=== PATIENT | male | born 1935 | race Caucasian/White ===

== ENCOUNTER 2020-05-24 12:41 | Outpatient (REF) | payer MEDICARE, SELFPAY ==
[2020-05-24 14:55] LABS: Prostate Specific Antigen 0.06 ng/mL (<0.05-4.0)
== END 2020-05-24 12:42 | disposition home or self-care (01) ==
LOC: HO.10HDL 12:41
PROVIDERS: Visit Provider Urology
DX: Z12.5 Encounter for screening for malignant neoplasm of prostate (principal)
CPT/HCPCS: 84153

== ENCOUNTER → 2020-06-05 11:15 | Outpatient (BNVA) | payer MEDICARE, SELFPAY | PROVIDERS: PCP Internal Medicine Interventional Cardiology; Visit Provider Urology | DX: R97.21 Rising PSA following treatment for malignant neoplasm of prostate (principal); C61 Malignant neoplasm of prostate; Z79.899 Other long term (current) drug therapy | CPT/HCPCS: 96372; 99212; J9217 ==

== ENCOUNTER 2020-08-24 12:07 | Outpatient (REF) | payer MEDICARE, SELFPAY ==
[2020-08-24 14:21] LABS: Prostate Specific Antigen 0.05 ng/mL (<0.05-4.0)
== END 2020-08-24 12:08 | disposition home or self-care (01) ==
LOC: HO.10HDL 12:07
PROVIDERS: Visit Provider Urology
DX: Z12.5 Encounter for screening for malignant neoplasm of prostate (principal); C61 Malignant neoplasm of prostate; R97.21 Rising PSA following treatment for malignant neoplasm of prostate
CPT/HCPCS: 36415; 84153

== ENCOUNTER → 2020-09-05 13:06 | Outpatient (BNVA) | payer MEDICARE, SELFPAY | PROVIDERS: PCP Internal Medicine Interventional Cardiology; Visit Provider Urology | DX: C61 Malignant neoplasm of prostate (principal) | CPT/HCPCS: 99212 ==

== ENCOUNTER 2020-11-16 09:44 | Outpatient (REF) | payer MEDICARE, SELFPAY ==
[2020-11-16 11:03] LABS: Prostate Specific Antigen 0.05 ng/mL (<0.05-4.0)
[2020-11-21 20:06] LABS: Testosterone, Total 10 ng/dL (250-1100)
== END 2020-11-16 09:45 | disposition home or self-care (01) ==
LOC: HO.LAB 09:44
PROVIDERS: Visit Provider Urology
DX: Z12.5 Encounter for screening for malignant neoplasm of prostate (principal); N40.1 Benign prostatic hyperplasia with lower urinary tract symptoms; N13.8 Other obstructive and reflux uropathy
CPT/HCPCS: 36415; 84153; 84403

== ENCOUNTER → 2020-11-28 13:05 | Outpatient (BNVA) | payer MEDICARE, SELFPAY | PROVIDERS: Visit Provider Urology | DX: R97.21 Rising PSA following treatment for malignant neoplasm of prostate (principal); C61 Malignant neoplasm of prostate; R23.2 Flushing; T50.905A Adverse effect of unspecified drugs, medicaments and biological substances, initial encounter | CPT/HCPCS: 99212 ==

== ENCOUNTER 2021-03-11 10:22 | Outpatient (REF) | payer MEDICARE, SELFPAY ==
[2021-03-11 15:12] LABS: Prostate Specific Antigen 0.06 ng/mL (<0.05-4.0)
[2021-03-16 08:12] LABS: Testosterone, Total 13 ng/dL (250-1100)
== END 2021-03-11 10:23 | disposition home or self-care (01) ==
LOC: HO.10HDL 10:22
PROVIDERS: Visit Provider Urology
DX: Z12.5 Encounter for screening for malignant neoplasm of prostate (principal); R97.21 Rising PSA following treatment for malignant neoplasm of prostate
CPT/HCPCS: 36415; 84153; 84403

== ENCOUNTER → 2021-03-27 11:25 | Outpatient (BNVA) | payer MEDICARE, SELFPAY | PROVIDERS: Visit Provider Urology | DX: C61 Malignant neoplasm of prostate (principal); R23.2 Flushing; T50.905D Adverse effect of unspecified drugs, medicaments and biological substances, subsequent encounter | CPT/HCPCS: 99212 ==

== ENCOUNTER 2021-07-04 12:34 | Outpatient (REF) | payer MEDICARE, SELFPAY ==
[2021-07-04 14:13] LABS: Estimated Average Glucose 163 mg/dL; Hemoglobin A1c % 7.3 %
[2021-07-04 14:41] LABS: Alanine Aminotransferase 38 U/L (0-40); Anion Gap 16 (12-20); Aspartate Amino Transferase 36 U/L (5-37); Blood Urea Nitrogen 30 mg/dL (9-16); Calcium 9.6 mg/dL (8.4-10.2); Carbon Dioxide 23 mmol/L (22-29); Chloride 104 mmol/L (96-108); Estimated Glomerular Filt Rate 48; Glucose Random 276 mg/dL (60-115); Potassium 4.5 mmol/L (3.3-5.1); Sodium 138 mmol/L (135-145)
[2021-07-04 14:49] LABS: Prostate Specific Antigen 0.15 ng/mL (<0.05-4.0)
[2021-07-09 09:06] LABS: Testosterone, Total 13 ng/dL (250-1100)
== END 2021-07-04 12:35 | disposition home or self-care (01) ==
LOC: HO.10HDL 12:34
PROVIDERS: Absent Provider Physician Assistant; Visit Provider Urology
DX: Z12.5 Encounter for screening for malignant neoplasm of prostate (principal); C61 Malignant neoplasm of prostate; E11.42 Type 2 diabetes mellitus with diabetic polyneuropathy
CPT/HCPCS: 36415; 80048; 83036; 84153; 84403; 84450; 84460

== ENCOUNTER → 2021-07-24 12:44 | Outpatient (BNVA) | payer MEDICARE, SELFPAY | PROVIDERS: PCP Internal Medicine Interventional Cardiology; Visit Provider Urology | DX: C61 Malignant neoplasm of prostate (principal); R23.2 Flushing; T50.905A Adverse effect of unspecified drugs, medicaments and biological substances, initial encounter | CPT/HCPCS: Q3014 ==

== ENCOUNTER 2021-11-13 12:26 | Outpatient (REF) | payer MEDICARE, SELFPAY ==
[2021-11-13 13:45] LABS: Prostate Specific Antigen 0.19 ng/mL (<0.05-4.0)
[2021-11-19 10:41] LABS: Testosterone, Total 35 ng/dL (250-1100)
== END 2021-11-13 12:27 | disposition home or self-care (01) ==
LOC: HO.10HDL 12:26
PROVIDERS: Visit Provider Urology
DX: C61 Malignant neoplasm of prostate (principal); Z12.5 Encounter for screening for malignant neoplasm of prostate
CPT/HCPCS: 36415; 84153; 84403

== ENCOUNTER → 2021-11-22 13:26 | Outpatient (BNVA) | payer MEDICARE, SELFPAY | PROVIDERS: PCP Internal Medicine Interventional Cardiology; Visit Provider Urology | DX: C61 Malignant neoplasm of prostate (principal) | CPT/HCPCS: 99212; Q3014 ==

== ENCOUNTER 2022-05-15 12:31 | Outpatient (REF) | payer MEDICARE, SELFPAY ==
[2022-05-15 14:43] LABS: Prostate Specific Antigen 0.15 ng/mL (<0.05-4.0)
== END 2022-05-15 12:32 | disposition home or self-care (01) ==
LOC: HO.10HDL 12:31
PROVIDERS: Visit Provider Urology
DX: Z12.5 Encounter for screening for malignant neoplasm of prostate (principal); C61 Malignant neoplasm of prostate
CPT/HCPCS: 36415; 84153

== ENCOUNTER → 2022-05-27 14:42 | Outpatient (BNVA) | payer MEDICARE, SELFPAY | PROVIDERS: Visit Provider Urology | DX: C61 Malignant neoplasm of prostate (principal) | CPT/HCPCS: 99212 ==

== ENCOUNTER 2022-09-15 12:35 | Outpatient (REF) | payer MEDICARE, SELFPAY ==
[2022-09-19 14:13] LABS: Testosterone, Total 74 ng/dL (250-1100)
== END 2022-09-15 12:36 | disposition home or self-care (01) ==
LOC: HO.10HDL 12:35
PROVIDERS: Visit Provider Urology
DX: Z12.5 Encounter for screening for malignant neoplasm of prostate (principal); C61 Malignant neoplasm of prostate
CPT/HCPCS: 36415; 84153; 84403

== ENCOUNTER → 2022-09-26 14:13 | Outpatient (BNVA) | payer MEDICARE, SELFPAY | PROVIDERS: Visit Provider Urology | DX: C61 Malignant neoplasm of prostate (principal); R97.21 Rising PSA following treatment for malignant neoplasm of prostate; Z79.01 Long term (current) use of anticoagulants; Z79.899 Other long term (current) drug therapy | CPT/HCPCS: Q3014 ==

== ENCOUNTER 2023-01-19 13:00 | Outpatient (REF) | payer MEDICARE, SELFPAY ==
[2023-01-19 16:00] LABS: Prostate Specific Antigen 0.87 ng/mL (<0.05-4.0)
[2023-01-23 01:44] LABS: Testosterone, Total 79 ng/dL (250-1100)
== END 2023-01-19 13:01 | disposition home or self-care (01) ==
LOC: HO.10HDL 13:00
PROVIDERS: Visit Provider Urology
DX: Z12.5 Encounter for screening for malignant neoplasm of prostate (principal); C61 Malignant neoplasm of prostate
CPT/HCPCS: 36415; 84153; 84403

== ENCOUNTER 2023-02-03 13:48 | Outpatient (AMB) | payer MEDICARE, SELFPAY ==
--- NOTE | 2023-02-03 14:13 | MHC.OFFVIS ---
Intake Intake Visit Reasons: 4M PSA/Testo(set) Intake Note: Patient is present for Follow Up PSA/TESTOSTERONE Urology Med: Finasteride, Antibiotic Allergy: None Blood Thinner: None Pharmacy: [facility] Allergies colbetamide- used for gout Allergy (Unknown, Uncoded 02/03/23 14:14) 50 years ago COLBETAMINE Allergy (Unknown, Uncoded 02/03/23 14:14) SWELLING HPI HPI Comments History of Present Illness Details Chidi is a pleasant male. He is a patient of Dr. Barrientos. He is seen for the following urologic conditions - prostate cancer 02/04 PSA 0.9 T 80 10/05 off finasteride Four month follow-up repeat labs Prostate cancer Grade Group 4 - 07/02 treatment with intermittent hormone therapy Initial diagnosis of [address] prostate cancer Initial consideration for therapy was external beam radiation Patient opted for intermittent hormone therapy - with intermittent finasteride Laboratories - 09/02 PSA 0.05, 12/03 PSA <0.1 T 10, 03/05, 03/05 PSA 0.06 T 13, 07/06 P 0.15 T 13, 12/04 0.2 T 35, 06/05 0.15 Fin, 10/05 0.7 T 74 Last [facility] 03/04 - 2 years [facility] Medical History Diabetes mellitus, type II Elevated PSA GERD (gastroesophageal reflux disease) Gout Increasing prostate specific antigen (PSA) level after treatment for malignant neoplasm of prostate Prostate cancer Surgical History H/O inguinal hernia repair History of prostate biopsy Family History Father No problems noted. Mother No problems noted. Social History Alcohol intake: never Patient Tobacco Use Status: Never used Tobacco Review of Systems Const Denies chills and Denies fever(s) Card Reports no additional complaints and Denies syncope Resp Denies cough GI Denies abdominal pain and Denies heartburn Reports as per HPI and Denies change in libido Neuro Denies syncope Psych Denies change in libido Endo Denies change in libido Physical Exam Const General: cooperative, healthy appearing, comfortable and no acute distress Orientation/consciousness: patient oriented x3 HEENT Face and sinus: Yes normal facial exam Mouth: moist mucous membranes Neck Neck: Yes normal visual inspection, Yes full ROM and Yes trachea midline Chest Chest palpation & inspection: normal inspection of the chest Resp Effort & Inspection: normal respiratory effort, able to speak in complete sentences and no respiratory distress GI Inspection: Yes normal to inspection Back/Spine/Pelvis Cervical Spine: normal cervical lordosis Thoracic/Lumbar Spine: thoracic and lumbar spine normal to inspection Skin General skin exam: no rashes or lesions noted Neuro General: patient oriented x3, gait normal, tone normal and moves all extremities Extrem General: Yes normal to inspection and Yes capillary refill normal Assessment & Plan Assessment & Plan (1) Prostate cancer: Comment: 201314 Grade Group 4, Initial hormonal treatment Code(s): C61 - Malignant neoplasm of prostate Plan Four month follow-up lab Orders: Orders Prostate Specific Antigen 4 Months C61 - Malignant neoplasm of prostate Testosterone, Total 4 Months C61 - Malignant neoplasm of prostate Patient Instructions: Imaging studies, laboratory and physical exam results were discussed and reviewed in detail. No major barriers to patient understanding were identified. An opportunity to ask questions regarding the treatment plan was provided. All questions were answered. The patient expressed understanding and agreement with the above treatment plan. The patient is aware they should contact our office by phone for worsening of their current condition or the appearance of new urologic symptoms. Compliance is encouraged with any medications and followup testing that is ordered. It is a privilege to participate in the urologic care of your patient. If you have any questions or concerns regarding treatment for the above conditions, or other urologic issues, please do not hesitate to contact me. The office telephone contact is [phone]. This note is constructed using voice recognition software. While every effort has been made to ensure accuracy front desk worker errors may have been included. Yours sincerely, Dr Dhruv Marcos MD, [facility] - Urology Providers of Expert, Compassionate Care for the Genitourinary System Coding Level of Care Code Est Pt Level 3 (71520) Diagnoses Prostate cancer C61
== END 2023-02-03 15:41 | disposition home or self-care (01) ==
PROVIDERS: Visit Provider Urology
DX: C61 Malignant neoplasm of prostate (principal)
CPT/HCPCS: 99213

== ENCOUNTER → 2023-02-03 13:51 | Outpatient (BNVA) | payer MEDICARE, SELFPAY | PROVIDERS: Visit Provider Urology | DX: C61 Malignant neoplasm of prostate (principal) | CPT/HCPCS: 99212 ==

== ENCOUNTER 2023-05-18 11:04 | Outpatient (REF) | payer MEDICARE, SELFPAY ==
[2023-05-18 14:24] LABS: Prostate Specific Antigen 1.06 ng/mL (<0.05-4.0)
[2023-05-24 13:28] LABS: Testosterone, Total 99 ng/dL (250-1100)
== END 2023-05-18 11:05 | disposition home or self-care (01) ==
LOC: HO.10HDL 11:04
PROVIDERS: Visit Provider Urology
DX: C61 Malignant neoplasm of prostate (principal); Z12.5 Encounter for screening for malignant neoplasm of prostate
CPT/HCPCS: 36415; 84153; 84403

== ENCOUNTER 2023-06-03 12:23 | Outpatient (AMB) | payer MEDICARE, SELFPAY ==
--- NOTE | 2023-06-03 12:24 | MHC.OFFVIS ---
Intake Intake Visit Reasons: PSA/Testosterone(set) Intake Note: Patient is Present for Telephone Follow Up Urology Med: Finasteride Antibiotic Allergy: None Blood Thinner: Plavix Allergies colbetamide- used for gout Allergy (Unknown, Uncoded 06/03/23 12:25) 50 years ago COLBETAMINE Allergy (Unknown, Uncoded 06/03/23 12:25) SWELLING HPI HPI Comments History of Present Illness Details Chidi is a pleasant male. He is a patient of Dr. Barrientos. He is seen for the following urologic conditions - prostate cancer Telemedicine Evaluation 15 min Consultation [employer] Video attempted PSA 02/04 0.9 T 80, 06/06 1.06 100 10/05 off finasteride Four month follow-up repeat labs Prostate cancer Grade Group 4 - 07/02 treatment with intermittent hormone therapy Initial diagnosis of [place] prostate cancer Initial consideration for therapy was external beam radiation Patient opted for intermittent hormone therapy - with intermittent finasteride Laboratories - 09/02 PSA 0.05, 12/03 PSA <0.1 T 10, 03/05, 03/05 PSA 0.06 T 13, 07/06 P 0.15 T 13, 12/04 0.2 T 35, 06/05 0.15 Fin, 10/05 0.7 T 74 Last [facility] 03/04 - 2 years [facility] Medical History Gout GERD (gastroesophageal reflux disease) Diabetes mellitus, type II Elevated PSA Increasing prostate specific antigen (PSA) level after treatment for malignant neoplasm of prostate Prostate cancer Surgical History H/O inguinal hernia repair History of prostate biopsy Family History Father No problems noted. Mother No problems noted. Social History Alcohol intake: never Patient Tobacco Use Status: Never used Tobacco Review of Systems Const Denies chills and Denies fever(s) Card Reports no additional complaints and Denies syncope Resp Denies cough GI Denies abdominal pain and Denies heartburn Reports as per HPI and Denies change in libido Neuro Denies syncope Psych Denies change in libido Endo Denies change in libido Physical Exam Const General: cooperative, healthy appearing, comfortable and no acute distress Orientation/consciousness: patient oriented x3 HEENT Face and sinus: Yes normal facial exam Mouth: moist mucous membranes Neck Neck: Yes normal visual inspection, Yes full ROM and Yes trachea midline Chest Chest palpation & inspection: normal inspection of the chest Resp Effort & Inspection: normal respiratory effort, able to speak in complete sentences and no respiratory distress GI Inspection: Yes normal to inspection Back/Spine/Pelvis Cervical Spine: normal cervical lordosis Thoracic/Lumbar Spine: thoracic and lumbar spine normal to inspection Skin General skin exam: no rashes or lesions noted Neuro General: patient oriented x3, gait normal, tone normal and moves all extremities Extrem General: Yes normal to inspection and Yes capillary refill normal Assessment & Plan Assessment & Plan (1) Prostate cancer: Comment: 201314 Grade Group 4, Initial hormonal treatment Code(s): C61 - Malignant neoplasm of prostate Plan Four month follow-up PSA office Orders: Orders Prostate Specific Antigen 4 Months C61 - Malignant neoplasm of prostate Patient Instructions: Imaging studies, laboratory and physical exam results were discussed and reviewed in detail. No major barriers to patient understanding were identified. An opportunity to ask questions regarding the treatment plan was provided. All questions were answered. The patient expressed understanding and agreement with the above treatment plan. The patient is aware they should contact our office by phone for worsening of their current condition or the appearance of new urologic symptoms. Compliance is encouraged with any medications and followup testing that is ordered. It is a privilege to participate in the urologic care of your patient. If you have any questions or concerns regarding treatment for the above conditions, or other urologic issues, please do not hesitate to contact me. The office telephone contact is [phone]. This note is constructed using voice recognition software. While every effort has been made to ensure accuracy yellow pages space salesperson errors may have been included. Yours sincerely, Dr Dhruv Marcos MD, [facility] - Urology Providers of Expert, Compassionate Care for the Genitourinary System Telehealth Telehealth Location of provider rendering services: practice address Location of patient: address on file Patient Identification confirmed using: Name, : Yes Telehealth method: video Patient verbally consented to treatment: Yes Patient verbally consented to billing insurance company: Yes Patient informed of any privacy concerns related to visit: Yes Coding Level of Care Code Tele Est Pt Level 3 (89440) Diagnoses Prostate cancer C61
== END 2023-06-03 14:18 | disposition home or self-care (01) ==
LOC: HO.HUSH 12:23
PROVIDERS: Visit Provider Urology
DX: C61 Malignant neoplasm of prostate (principal)
CPT/HCPCS: 99213

== ENCOUNTER → 2023-06-03 12:23 | Outpatient (BNVA) | payer MEDICARE, SELFPAY | PROVIDERS: Visit Provider Urology ==

== ENCOUNTER 2023-09-23 12:06 | Outpatient (REF) | payer MEDICARE, SELFPAY ==
[2023-09-23 14:36] LABS: Prostate Specific Antigen 0.82 ng/mL (<0.05-4.0)
== END 2023-09-23 12:07 | disposition home or self-care (01) ==
LOC: HO.10HDL 12:06
PROVIDERS: Visit Provider Urology
DX: C61 Malignant neoplasm of prostate (principal); Z12.5 Encounter for screening for malignant neoplasm of prostate
CPT/HCPCS: 36415; 84153

== ENCOUNTER 2023-10-02 14:36 | Outpatient (AMB) | payer MEDICARE, SELFPAY ==
--- NOTE | 2023-10-02 14:37 | A.OFFVIS_ITS ---
Intake Visit Reasons: 4M PSA(set)Confirmed Allergies colbetamide- used for gout Allergy (Unknown, Uncoded 06/03/23 12:25) 50 years ago COLBETAMINE Allergy (Unknown, Uncoded 06/03/23 12:25) SWELLING HPI Comments Details: Chidi is a pleasant male. He is a patient of Dr. Barrientos. He is seen for the following urologic conditions - prostate cancer Telemedicine Evaluation 15 min Consultation [employer] Video attempted Doing great. PSA under control. Has been off finasteride. Continue with 4 month surveillance. PSA 02/04 0.9 T 80, 06/06 1.1 100, 10/06 0.8 Prostate cancer Grade Group 4 - 07/02 treatment with intermittent hormone therapy Initial diagnosis of [place] [address] prostate cancer Initial consideration for therapy was external beam radiation Patient opted for intermittent hormone therapy - with intermittent finasteride Laboratories - 09/02 PSA 0.05, 12/03 PSA <0.1 T 10, 03/05, 03/05 PSA 0.06 T 13, 07/06 P 0.15 T 13, 12/04 0.2 T 35, 06/05 0.15 Fin, 10/05 0.7 T 74 Last [facility] 03/04 - 2 years [facility] Medical History Gout GERD (gastroesophageal reflux disease) Diabetes mellitus, type II Elevated PSA Increasing prostate specific antigen (PSA) level after treatment for malignant neoplasm of prostate Prostate cancer Surgical History H/O inguinal hernia repair History of prostate biopsy Family History Father No problems noted. Mother No problems noted. Social History Alcohol intake: never Patient Tobacco Use Status: Never used Tobacco Review of Systems Const All systems reviewed & are unremarkable except as noted in HPI and below Reports no additional complaints Resp Reports no additional complaints GI Reports no additional complaints Reports as per HPI Musc Reports no additional complaints Physical Exam Telemedicine evaluation Appropriate responses Regular breathing rate and rhythm HEENT Head: Yes normal to inspection Ears: hearing grossly normal bilaterally Eyes General: appearance normal, both eyes and all related structures Neck Neck: Yes normal visual inspection Chest Chest palpation & inspection: normal inspection of the chest Resp Effort & Inspection: normal respiratory effort and able to speak in complete sentences Telehealth Telehealth Location of provider rendering services: practice address Location of patient: address on file Patient Identification confirmed using: Name, : Yes Telehealth method: voice only Patient verbally consented to treatment: Yes Patient verbally consented to billing insurance company: Yes Patient informed of any privacy concerns related to visit: Yes Assessment & Plan Assessment & Plan (1) Biochemically recurrent castration-sensitive adenocarcinoma of prostate: Code(s): C61 - Malignant neoplasm of prostate; R97.21 - Rising PSA following treatment for malignant neoplasm of prostate; Z19.1 - Hormone sensitive malignancy status Category: Medical Plan Four month follow-up PSA Orders: Orders Prostate Specific Antigen 4 Months R97.21 - Rising PSA following treatment for malignant neoplasm of prostate Patient Instructions: Imaging studies, laboratory and physical exam results were discussed and reviewed in detail. No major barriers to patient understanding were identified. An opportunity to ask questions regarding the treatment plan was provided. All questions were answered. The patient expressed understanding and agreement with the above treatment plan. The patient is aware they should contact our office by phone for worsening of their current condition or the appearance of new urologic symptoms. Compliance is encouraged with any medications and followup testing that is ordered. It is a privilege to participate in the urologic care of your patient. If you have any questions or concerns regarding treatment for the above conditions, or other urologic issues, please do not hesitate to contact me. The office telephone contact is [phone]. This note is constructed using voice recognition software. While every effort has been made to ensure accuracy administrative representative errors may have been included. Yours sincerely, Dr Dhruv Marcos MD, [facility] - Urology Providers of Expert, Compassionate Care for the Genitourinary System
== END 2023-10-02 14:48 | disposition home or self-care (01) ==
LOC: HO.HUSH 14:36
PROVIDERS: Visit Provider Urology
DX: C61 Malignant neoplasm of prostate (principal); R97.21 Rising PSA following treatment for malignant neoplasm of prostate; Z19.1 Hormone sensitive malignancy status
CPT/HCPCS: 99442

== ENCOUNTER → 2023-10-02 14:36 | Outpatient (BNVA) | payer MEDICARE, SELFPAY | PROVIDERS: Visit Provider Urology ==

== ENCOUNTER 2024-01-14 11:14 | Outpatient (REF) | payer MEDICARE, SELFPAY ==
[2024-01-14 12:56] LABS: Prostate Specific Antigen 1.45 ng/mL (<0.05-4.0)
== END 2024-01-14 11:15 | disposition home or self-care (01) ==
LOC: HO.LAB 11:14
PROVIDERS: Visit Provider Urology
DX: R97.21 Rising PSA following treatment for malignant neoplasm of prostate (principal); Z12.5 Encounter for screening for malignant neoplasm of prostate
CPT/HCPCS: 36415; 84153

== ENCOUNTER 2024-02-02 13:42 | Outpatient (AMB) | payer MEDICARE, SELFPAY ==
--- NOTE | 2024-02-02 13:49 | A.OFFVIS_ITS ---
Intake Visit Reasons: 4M Follow Up-PSA(set) Intake Note: Patient is Present for 4m Follow Up/psa Urology Med: Finasteride, gabapentin Antibiotic Allergy: None Blood Thinner: Plavix Offset Plate Preparation Supervisor Required: No Allergies colbetamide- used for gout Allergy (Unknown, Uncoded 02/02/24 13:50) 50 years ago COLBETAMINE Allergy (Unknown, Uncoded 02/02/24 13:50) SWELLING Medication List - Last Reconciled 02/02/24 by Dhruv Marcos MD allopurinol mg PO amlodipine 5 mg PO DAILY blood sugar diagnostic As directed clopidogrel 75 mg PO DAILY dulaglutide mg subcut fenofibrate nanocrystallized 145 mg PO DAILY finasteride 5 mg PO DAILY 90 days furosemide 20 mg PO DAILY gabapentin 300 mg PO BEDTIME 90 days glipizide ER 10 mg PO BID insulin asp prt-insulin aspart 100 unit/mL (70-30) subcut lisinopril 20 mg PO DAILY lisinopril 5 mg PO DAILY lorazepam 0.5 mg PO DAILY PRN metformin mg PO metoprolol succinate ER 100 mg PO DAILY niacin ER mg PO omeprazole 20 mg PO DAILY simvastatin 40 mg PO BEDTIME HPI Comments Details: Chidi is a pleasant male. He is a patient of Dr. Barrientos. He is seen for the following urologic conditions - prostate cancer Slow PSA rise Re-initiate hormones at PSA between 4 and 10 PSA 02/04 0.9 T 80, 06/06 1.1 100, 10/06 0.8, 02/05 1.4 T 99 Prostate cancer Grade Group 4 - 07/02 treatment with intermittent hormone therapy Initial diagnosis of [place] 8 prostate cancer Initial consideration for therapy was external beam radiation Patient opted for intermittent hormone therapy - with intermittent finasteride Laboratories - 09/02 PSA 0.05, 12/03 PSA <0.1 T 10, 03/05, 03/05 PSA 0.06 T 13, 07/06 P 0.15 T 13, 12/04 0.2 T 35, 06/05 0.15 Fin, 10/05 0.7 T 74 Last [facility] 03/04 - 2 years [facility] Medical History Gout GERD (gastroesophageal reflux disease) Diabetes mellitus, type II Elevated PSA Increasing prostate specific antigen (PSA) level after treatment for malignant neoplasm of prostate Prostate cancer Surgical History H/O inguinal hernia repair History of prostate biopsy Family History Father No problems noted. Mother No problems noted. Social History Alcohol intake: never Patient Tobacco Use Status: Never used Tobacco Review of Systems Const Denies chills and Denies fever(s) Card Reports no additional complaints and Denies syncope Resp Denies cough GI Denies abdominal pain and Denies heartburn Reports as per HPI and Denies change in libido Neuro Denies syncope Psych Denies change in libido Endo Denies change in libido Physical Exam Const General: cooperative, healthy appearing, comfortable and no acute distress Orientation/consciousness: patient oriented x3 HEENT Face and sinus: Yes normal facial exam Mouth: moist mucous membranes Neck Neck: Yes normal visual inspection, Yes full ROM and Yes trachea midline Chest Chest palpation & inspection: normal inspection of the chest Resp Effort & Inspection: normal respiratory effort, able to speak in complete sentences and no respiratory distress GI Inspection: Yes normal to inspection Back/Spine/Pelvis Cervical Spine: normal cervical lordosis Thoracic/Lumbar Spine: thoracic and lumbar spine normal to inspection Skin General skin exam: no rashes or lesions noted Neuro General: patient oriented x3, gait normal, tone normal and moves all extremities Extrem General: Yes normal to inspection and Yes capillary refill normal Results AMB Urinalysis, Automated UA Leukoctes 70 Alex/uL Last Edit by FÁTIMA Reed on 02/02/24 14:10 UA Nitrite Negative Last Edit by FÁTIMA Reed on 02/02/24 14:10 UA Urobilinogen 0.2 mg/dL Last Edit by FÁTIMA Reed on 02/02/24 14:1 0 UA Protein 15 mg/dL Last Edit by FÁTIMA Reed on 02/02/24 14:10 UA pH 5.5 Last Edit by FÁTIMA Reed on 02/02/24 14:10 UA Blood 0 Hossein/uL Last Edit by FÁTIMA Reed on 02/02/24 14:10 UA Specific [place] 1.020 Last Edit by FÁTIMA Reed on 02/02/24 14: 10 UA Ketone Positive Last Edit by FÁTIMA Reed on 02/02/24 14:10 UA Bilirubin 1 mg/dL Last Edit by FÁTIMA Reed on 02/02/24 14:10 UA Glucose 0 mg/dL Last Edit by FÁTIMA Reed on 02/02/24 14:10 Results Reviewed Results Reviewed: Laboratory Last Values Urine pH (Auto) 5.5 02/02/24 14:10 Specific [place] (Auto) 1.020 02/02/24 14:10 Urine Protein (Auto) 15 mg/dL 02/02/24 14:10 Glucose (UA)(Auto) 0 mg/dL 02/02/24 14:10 Urine Ketones (Auto) Positive 02/02/24 14:10 Urine Blood (Auto) 0 Hossein/uL 02/02/24 14:10 Urine Nitrite (Auto) Negative 02/02/24 14:10 Urine Bilirubin (Auto) 1 mg/dL 02/02/24 14:10 Urine Urobilinogen (Auto) 0.2 mg/dL 02/02/24 14:10 Leukocyte Esterase (Auto) 70 Alex/uL 02/02/24 14:10 Assessment & Plan Assessment & Plan (1) Prostate cancer: Comment: 2014 Grade Group 4, Initial hormonal treatment Code(s): C61 - Malignant neoplasm of prostate Category: Medical (2) Biochemically recurrent castration-sensitive adenocarcinoma of prostate: Code(s): C61 - Malignant neoplasm of prostate; R97.21 - Rising PSA following treatment for malignant neoplasm of prostate; Z19.1 - Hormone sensitive malignancy status Category: Medical Plan Four month follow-up lab work Orders: Orders Testosterone, Total 4 Months C61 - Malignant neoplasm of prostate, R97.21 - Rising PSA following treatment for malignant neoplasm of prostate, Z19.1 - Hormone sensitive malignancy status Prostate Specific Antigen 4 Months C61 - Malignant neoplasm of prostate, R97.21 - Rising PSA following treatment for malignant neoplasm of prostate, Z19.1 - Hormone sensitive malignancy status AMB Urinalysis Automated 02/02/24 Z13.9 - Encounter for screening, unspecified Patient Instructions: Imaging studies, laboratory and physical exam results were discussed and reviewed in detail. No major barriers to patient understanding were identified. An opportunity to ask questions regarding the treatment plan was provided. All questions were answered. The patient expressed understanding and agreement with the above treatment plan. The patient is aware they should contact our office by phone for worsening of their current condition or the appearance of new urologic symptoms. Compliance is encouraged with any medications and followup testing that is ordered. It is a privilege to participate in the urologic care of your patient. If you have any questions or concerns regarding treatment for the above conditions, or other urologic issues, please do not hesitate to contact me. The office telephone contact is [phone]. This note is constructed using voice recognition software. While every effort has been made to ensure accuracy arts and crafts teacher errors may have been included. Yours sincerely, Dr Dhruv Marcos MD, [facility] - Urology Providers of Expert, Compassionate Care for the Genitourinary System Coding Level of Care Code Est Pt Level 3 (11935) Diagnoses Prostate cancer C61 Biochemically recurrent castration-sensitive adenocarcinoma of prostate C61; R97.21; Z19.1
== END 2024-02-02 14:28 | disposition home or self-care (01) ==
LOC: HO.HUSH 13:42
PROVIDERS: Visit Provider Urology
DX: C61 Malignant neoplasm of prostate (principal); R97.21 Rising PSA following treatment for malignant neoplasm of prostate; Z19.1 Hormone sensitive malignancy status
CPT/HCPCS: 99213

== ENCOUNTER → 2024-02-02 13:42 | Outpatient (BNVA) | payer MEDICARE, SELFPAY | PROVIDERS: Visit Provider Urology | DX: C61 Malignant neoplasm of prostate (principal); R97.21 Rising PSA following treatment for malignant neoplasm of prostate; Z19.1 Hormone sensitive malignancy status | CPT/HCPCS: 81003; 99212 ==

== ENCOUNTER 2024-05-17 11:06 | Outpatient (REF) | payer MEDICARE, SELFPAY ==
[2024-05-17 14:41] LABS: Prostate Specific Antigen 2.08 ng/mL (<0.05-4.0)
[2024-05-22 15:17] LABS: Testosterone, Total 81 ng/dL (250-1100)
--- OUTSIDE RECORDS SUMMARY | 2024-05-24 13:09 | XMS_ITS | Encounter Summary ---
Author Name [facility] [place] Address [address] [place] [id number] Care Team Providers Care Dipper Operator Name Role Phone MARGARITA FLOREZ Primary Care Provide r Unavailable Insurance Providers: All historical and current Section Date Range: From patient's date of to the date document was created. This section includes the names of all active insurance providers for the patient. Insurance Provider Type of Coverage Plan Name Start of Policy Coverage End of Policy Coverage Group Number Member ID Insurance Provider's Telephone Number Policy Bejarano's Name Patient's Relationship to Policy Bejarano ALVA [place] [facility] Dec 13, 2013 [id number] DAGMAR,ZIA ERT PATIENT [place] MED[place] SUPPLEMEN [facility] November 06, 2007 [id number] DAGMAR,ZIA ERT PATIENT [place] SUPPLEMEN [facility] 2 November 06, 2007 [id number] DAGMAR,ZIA ERT PAT[place] [facility] 2 November 06, 2007 [id number] DAGMAR,ZIA ERT PATIENT BCBS OF [facility] MEDICARE SUPPLEMEN [facility] Dec 13, 2013 [id number] DAGMAR,ZIA ERT PATIENT [place] SUPPLEMEN [facility]/ WHITM AN/MX Dec 13, 2008 [id number] [phone] DAGMAR,ZIA ERT PATIENT MEDICARE (WNR) MEDICARE () PART B May 15, 2012 PART B [id number] DAGMAR,ZIA ERT PATIENT MEDICARE (WNR) MEDICARE () PART A May 15, 2002 PART A [id number] DAGMAR,ZIA ERT PATIENT MEDICARE (WNR) MEDICARE () PART A May 15, 2002 PART A [id number] [phone] DAGMAR,ZIA ERT PATIENT MEDICARE (WNR) MEDICARE () PART B May 15, 2002 PART B [id number] [phone] DAGMAR,ZIA ERT PATIENT MEDICARE (WNR) MEDICARE () PART A May 15, 2002 PART A [id number] DAGMAR,ZIA ERT PATIENT MEDICARE (WNR) MEDICARE () PART B May 15, 2002 PART B [id number] DAGMAR,ZIA ERT PATIENT MEDICARE (WNR) MEDICARE () PART A May 15, 2002 PART A [id number] DAGMAR,ZIA ERT PATIENT MEDICARE (WNR) MEDICARE () PART B May 15, 2002 PART B [id number] DAGMAR,ZIA ERT PATIENT Selected Encounter This section includes the information on record at [place] for the Encounter. Date/Time Encounter Type Encounter Description Reason Provider Source Jun 03, 2023 04:14 PM TUBING WITH HEATING ELEMENT TELEPHONE/MEDICIN E ICD-10-CM G47.33 Obstructive sleep apnea (adult) (pediatric) RANJITH FIELDS Grecia Encounter Template Text not used by VA Assessments - Encounter Diagnoses This section includes the primary and secondary diagnoses documented for the Encounter. Date/Time Primary/Secondary Diagnosis Diagnosis Name Provider Source Jun 03, 2023 04:14 PM PRIMARY Obstructive sleep apnea (adult) (pediatric) RANJITH FIELDS PA [facility] [place] [facility] Plan of Treatment: Future Appointments (+ 6 months) and Future Tests (+/- 45 days) The Plan of Treatment section includes future care activities for the [facility] This section includes future appointments and future orders which are active, pending or scheduled. Future Appointments This section includes appointments that were scheduled to occur 6 months from the date of the Encounter, up to a maximum of 20 appointments. The data comes from all [place] treatment facilities. Appointment Date/Time Appointment Type Appointme nt Facility Name Jun 10, 2023 12:00 PM AMBULATORY - MEDICINE [place] C [facility] [place] [facility] Jun 17, 2023 08:30 AM AMBULATORY - MEDICINE [place] [facility] [place] [facility] Jun 22, 2023 09:00 AM AMBULATORY - MEDICINE [place] [facility] [place] [facility] Aug 05, 2023 01:00 PM AMBULATORY - MEDICINE [place] [facility] [place] [facility] Aug 07, 2023 02:00 PM AMBULATORY - REHAB MEDICIN E [place] [facility] [place] [facility] Sep 07, 2023 03:00 PM AMBULATORY - REHAB MEDICIN E [place] [facility] [place] [facility] Sep 15, 2023 11:00 AM [facility]INE [facility] Sep 16, 2023 01:00 PM AMBULATORY - MEDICINE [place] [facility] [place] [facility] Sep 18, 2023 10:30 AM AMBULATORY - REHAB MEDICIN E [place] Sep 23, 2023 01:00 PM [facility]ATORY - MEDICINE [facility] Sep 23, 2023 01:15 PM AMBULATORY - MEDICINE [facility] Sep 30, 2023 03:00 PM [facility] Sep 30, 2023 03:15 PM [facility]ULATORY - MEDICINE [facility] Oct 13, 2023 01:00 PM AMBULATORY - MEDICINE [place] [facility] [place] [facility] October 16, 2023 01:00 PM AMBULATORY - MEDICINE PA C [facility] [place] [facility] Lab Results: +/- 30 days of the encounter This section includes the Chemistry and Hematology Lab Results on record with [place] for the patient. Radiology Reports and Pathology Reports are provided separately, in subsequent sections. Lab Results This section contains the Chemistry/Hematology Results that were resulted 30 days before or 30 daysafter the date of the Encounter. Date/Time Source Result Type Result - Unit Interpretation Reference Range Comment May 27, 2023 01:06 PM [place] MAGNESIUM Specimen Type: SERUM No comment entered. Ordering Provider: MARGARITA DIAMOND Report Released Date/Time: May 11, 2023 01:25 PM Reporting Lab: [address] [address] Performing Lab: [address] [address] MAGNESIUM 1.3 mg/dL L 1.6-2.6 May 27, 2023 01:06 PM [place] BASIC METABOLIC PANEL (non-fasting) Spe cimen Type: SERUM No comment entered. Ordering Provider: MARGARITA DIAMOND Report Released Date/Time: May 11, 2023 01:25 PM Reporting Lab: [address] [address] Performing Lab: [address] [address] U[place]A NITROGEN 32 mg/dL H 7-25 GLUCOSE 179 mg/dL H 65-100 SODIUM 136 mmol/L 135-145 POTASSIUM 4.7 mmol/L 3.5-5.0 CHLORIDE 100 mmol/L 100-110 CO2 25 meq/L 20-30 CREATININE, Serum 1.67 mg/dL H 0.50-1.40 eGFR(CKD-EPI 2020) 40 mL/min L >60 May 08, 2023 01:29 PM [place] MAGNESIUM Specimen Type: SERUM No comment entered. Ordering Provider: MARGARITA DIAMOND Report Released Date/Time: Apr 28, 2023 03:59 PM Reporting Lab: [address] [address] Performing Lab: [address] [address] MAGNESIUM 1.7 mg/dL 1.6-2.6 May 08, 2023 01:29 PM [place] BASIC METABOLIC PANEL (non-fasting) Spe cimen Type: SERUM No comment entered. Ordering Provider: MARGARITA DIAMOND Report Released Date/Time: Apr 28, 2023 03:59 PM Reporting Lab: [facility] [address] [facility] [address] Performing Lab: [facility] [address] [facility] [address] UREA NITROGEN 29 mg/dL H 7-25 GLUCOSE 174 mg/dL H 65-100 SODIUM 141 mmol/L 135-145 POTASSIUM 4.6 mmol/L 3.5-5.0 CHLORIDE 106 mmol/L 100-110 CO2 26 meq/L 20-30 CREATININE, Serum 1.80 mg/dL H 0.50-1.40 eGFR(CKD-EPI 2020) 36 mL/min L >60 Social History: Smoking Status (Most current) and Tobacco Use (All prior to encounter date) This section includes the most current, and the historical, smoking and tobacco- related health factors from the [place] facility where the Encounter took place. Current Smoking Status This section includes the most current smoking, or tobacco-related health factor, from the [place] facility where the Encounter took place. Date/Time Current Smoking Status Comment Facil gorany Apr 15, 2022 01:00 PM VA-TOBACCO NEVER USED [facility] Encounter Notes: All associated encounter notes This section contains the clinical notes associated to the Encounter. Date/Time Encounter Note(s) Provider Source Jun 03, 2023 04:14 PM RESPIRATORY THERAP Y NOTE: LOCAL TITLE: RESPIRATORY THERAPY NOTE(BLANK) STANDARD TITLE: RESPIRATORY THERAPY NOTE DATE OF NOTE: JUN 03, 2023@16:14 ENTRY DATE: JUN 03, 2023@16:14:29 AUTHOR: RANJITH FIELDS EXP COSIGNER: URGENCY: STATUS: COMPLETED RESPIRATORY THERAPY NOTE(BLANK) Has ADDENDA Patient diagnosed with sleep apnea data reviewed for new Cpap follow up. Attempted to contact him to confirm his mask preference and left message for him to c/b. When he calls back, supplies can be ordered from [facility]. [employer] Patient APAP compliance data reviewed via the [employer] program for the last 30 days. SETTINGS: Apap 5 - [id number] TOTAL DAYS USED 28 DAYS USED > 4hrs 11 AVG USAGE 3:46 hours AVG PRESSURE 8cmH20 LEAK 24 AHI: 2.5 Central 0.1 If pt has any questions or concerns regarding Apap, he/she can contact Respiratory at [phone] extension [phone]. /es/ RANJITH FIELDS FIXED INCOME TRADING VICE PRESIDENT RESPIRATORY THERAPIST Signed: 06/03/2023 16:18 06/09/2023 ADDENDUM STATUS: COMPLETED Telephone Coding and Documentation: Diagnosis: Sleep Apnea Time spent with Patient via telephone: 15 minutes. called back and we discussed data and mask fitting. He has been using the F30i FFM with the medium cushion but sometimes has trouble putting it back on after he gets up to use bathroom. He was advised to put the mask on in front of a mirror so he can see what he's doing. He would also like to try another style mask so he was ordered the F20 med FFM and he will call back to let us know if it works better or if he needs a large FFM. /es/ RANJITH FIELDS FIXED INCOME TRADING VICE PRESIDENT RESPIRATORY THERAPIST Signed: 06/09/2023 15:05 RANJITH FIELDS
--- OUTSIDE RECORDS SUMMARY | 2024-05-24 13:09 | XMS_ITS | Encounter Summary ---
Author Name [facility] [place] Address [address] [place] [address] Care Team Providers Care Chief Warden Name Role Phone MARGARITA FLOREZ Primary Care [...] Relationship to Policy Bejarano [place] SUPPLEMEN [facility] Dec 13, 2013 [id number] DAGMAR,ZIA ERT PATIENT [place] MED[place] SUPPLEMEN [facility] November 06, 2007 [id number] DAGMAR,ZIA ERT PATIENT [place] SUPPLEMEN [facility] MEDEX 2 November 06, 2007 [id number] [phone] DAGMAR,ZIA ERT PATIENT [place] SUPPLEMEN [facility]EX 2 November 06, 2007 [id number] DAGMAR,ZIA ERT PATIENT BCBS OF [facility] MEDICARE SUPPLEMEN [facility] Dec 13, 2013 [id number] [phone] DAGMAR,ZIA ERT PATIENT [facility] OF [place] MEDICARE ROSALBA RAUSCH [facility] AN/MX Dec 13, 2008 [id number] DAGMAR,ZIA ERT PATIENT MEDICARE (WNR) MEDICARE () PART B May 15, 2012 PART B [id number] DAGMAR,ZIA ERT PATIENT MEDICARE (WNR) MEDICARE (M) PART A May 15, 2002 PART A [id number] DAGMAR,ZIA ERT PATIENT MEDICARE (WNR) MEDICARE (M) PART B May 15, 2002 PART B [id number] DAGMAR,ZIA ERT PATIENT MEDICARE (WNR) MEDICARE () PART A May 15, 2002 PART A [id number] DAGMAR,ZIA ERT PATIENT MEDICARE (WNR) MEDICARE (M) PART A May 15, 2002 PART A [id number] DAGMAR,ZIA ERT PATIENT MEDICARE (WNR) MEDICARE (M) PART B May 15, 2002 PART B [id number] [phone] DAGMAR,ZIA ERT PATIENT MEDICARE (WNR) MEDICARE (M) PART A May 15, 2002 PART A [id number] DAGMAR,ZIA ERT PATIENT MEDICARE (WNR) MEDICARE (M) PART B May 15, 2002 PART B [id number] DAGMAR,ZIA ERT PATIENT Selected Encounter This section includes the information on record at [place] for the Encounter. Date/Time Encounter Type Encounter Description Reason Pro vider Source May 28, 2023 12:09 PM Outpatient Encounter ADMIN PAT ACTIVTIES (MASNONCT) IHE Encounter Template Text not used by VA Plan of Treatment: Future Appointments (+ 6 months) and Future Tests (+/- 45 days) The Plan of Treatment section includes future care activities for the patient from all VA treatmentfacilities. This section includes future appointments and future orders which are active, pending or scheduled. Future Appointments This section includes appointments that were scheduled to occur 6 months from the date of the Encounter, up to a maximum of 20 appointments. The data comes from all [place] treatment facilities. Appointment Date/Time Appointment Type Appointme nt Facility Name Jun 10, 2023 12:00 PM AMBULATORY - MEDICINE [place] [facility] Jun 17, 2023 08:30 AM AMBULATORY - MEDICINE [place] [facility] Jun 22, 2023 09:00 AM AMBULATORY - MEDICINE [place] [facility] Aug 05, 2023 01:00 PM AMBULATORY - MEDICINE [place] [facility] Aug 07, 2023 02:00 PM AMBULATORY - REHAB MEDICIN E [place] [facility] [place] [facility] Sep 07, 2023 03:00 PM AMBULATORY - REHAB MEDICIN E [place] [place] [facility] Sep 15, 2023 11:00 AM AMBULATORY - MEDICINE [facility] Sep 16, 2023 01:00 PM AMBULATORY - MEDICINE [place] [facility] Sep 18, 2023 10:30 AM AMBULATORY - REHAB MEDICIN E [place] Sep 23, 2023 01:00 PM AMBULATORY - MEDICINE [facility] Sep 23, 2023 01:15 PM AMBULATORY - MEDICINE [facility] Sep 30, 2023 03:00 PM AMBULATORY - MEDICINE [facility] Sep 30, 2023 03:15 PM AMBULATORY - MEDICINE [facility] Oct 13, 2023 01:00 PM AMBULATORY - MEDICINE [place] [facility] October 16, 2023 01:00 PM AMBULATORY - MEDICINE [place] [facility] Lab Results: +/- 30 days of the encounter This section includes the Chemistry and Hematology Lab Results on record with [place] for the patient. Radiology Reports and Pathology Reports are provided separately, in subsequent sections. Lab Results This section contains the Chemistry/Hematology Results that were resulted 30 days before or 30 daysafter the date of the Encounter. Date/Time Source Result Type Result - Unit Interpretation Reference Range Comment May 27, 2023 01:06 PM [place] MAGNESIUM Specimen Type: SERUM No comment entered. Ordering Provider: MARGARITA DIAMOND Report Released Date/Time: May 11, 2023 01:25 PM Reporting Lab: [facility] [address] [facility] [address] Performing Lab: [place] [facility] [address] [address] MAGNESIUM 1.3 mg/dL L 1.6-2.6 May 27, 2023 01:06 PM [place] BASIC METABOLIC PANEL (non-fasting) Spe cimen Type: SERUM No comment entered. Ordering Provider: MARGARITA DIAMOND Report Released Date/Time: May 11, 2023 01:25 PM Reporting Lab: [facility] [address] [address] Performing Lab: [facility] [address] [address] UREA NITROGEN 32 mg/dL H 7-25 GLUCOSE 179 mg/dL H 65-100 SODIUM 136 mmol/L 135-145 POTASSIUM 4.7 mmol/L 3.5-5.0 CHLORIDE 100 mmol/L 100-110 CO2 25 meq/L 20-30 CREATININE, Serum 1.67 mg/dL H 0.50-1.40 eGFR(CKD-EPI 2020) 40 mL/min L >60 May 08, 2023 01:29 PM [place] MAGNESIUM Specimen Type: SERUM No comment entered. Ordering Provider: MARGARITA DIAMOND Report Released Date/Time: Apr 28, 2023 03:59 PM Reporting Lab: [facility] [address] Performing Lab: [facility] [address] MAGNESIUM 1.7 mg/dL 1.6-2.6 May 08, 2023 01:29 PM [place] BASIC METABOLIC PANEL (non-fasting) Spe cimen Type: SERUM No comment entered. Ordering Provider: MARGARITA DIAMOND Report Released Date/Time: Apr 28, 2023 03:59 PM Reporting Lab: [facility] [address] [address] Performing Lab: [facility] [place] [place] [address] UREA NITROGEN 29 mg/dL H 7-25 GLUCOSE [...] and tobacco- related health factors from the [place] facility where the Encounter took place. Current Smoking Status This section includes the most current smoking, or tobacco-related health factor, from the [place] facility where the Encounter took place. Date/Time Current Smoking Status Comment Facil ity Apr 15, 2022 01:00 PM VA-TOBACCO NEVER USED [facility] Encounter Notes: All associated encounter notes This section contains the clinical notes associated to the Encounter. Date/Time Encounter Note(s) Provider Source May 28, 2023 12:09 PM MEDICATION MGT NOT E: LOCAL TITLE: MEDICATION RENEWAL STANDARD TITLE: MEDICATION MGT NOTE DATE OF NOTE: MAY 28, 2023@12:09 ENTRY DATE: MAY 28, 2023@12:09:39 AUTHOR: FELIX SARABIA EXP COSIGNER: URGENCY: STATUS: COMPLETED MEDICATION RENEWAL Has ADDENDA Medication on long-term backorder: NIACIN (SLO-NIACIN) 750MG TAB Please consider generic or different strength, if appropriate. Thanks! /osvaldo SARABIA CPhT SOLID WASTE COLLECTION WORKER Signed: 05/28/2023 12:10 Receipt Acknowledged By: 05/28/2023 16:18 /radhames/ ALLISON TURNER PA-C STAFF PHYSICIAN E COMMERCE SPECIALIST for MARGARITA FLOREZ 05/28/2023 ADDENDUM STATUS: COMPLETED already on fenofibrate i will renew that /radhames/ ALLISON TURNER PA-C STAFF PHYSICIAN E COMMERCE SPECIALIST Signed: 05/28/2023 16:19 FELIX SARABIA [facility]
--- OUTSIDE RECORDS SUMMARY | 2024-05-24 13:09 | XMS_ITS | Encounter Summary ---
Author Name [place] Organization [place] Address [address] [place] [address] Care Team Providers Care Outbound Telemarketer Name Role Phone MARGARITA FLOREZ Primary Care [...] Relationship to Policy Bejarano [place] OF [place] MED[facility] Dec 13, 2013 [id number] DAGMAR,ZIA ERT PATIENT [place] MED[place]ARE SUPPLEMEN [place] [facility] November 06, 2007 [id number] DAGMAR,ZIA ERT PATIENT [place] SUPPLEMEN [facility] MEDEX 2 November 06, 2007 [id number] DAGMAR,ZIA ERT PAT[place] SUPPLEMEN [place] MEDEX 2 November 06, 2007 [id number] DAGMAR,ZIA ERT PATIENT BCBS OF [facility] MEDICARE SUPPLEMEN [facility] Dec 13, 2013 [id number] [phone] DAGMAR,ZIA ERT PATIENT [place] SUPPLEMEN [facility] MMHG/ WHITM AN/MX Dec 13, 2008 [id number] DAGMAR,ZIA ERT PATIENT MEDICARE (WNR) MEDICARE () PART B May 15, 2012 PART B [id number] [phone] DAGMAR,ZIA ERT PATIENT MEDICARE (WNR) MEDICARE () PART A May 15, 2002 PART A [id number] DAGMAR,ZIA ERT PATIENT MEDICARE (WNR) MEDICARE (M) PART B May 15, 2002 PART B [id number] DAGMAR,ZIA ERT PATIENT MEDICARE (WNR) MEDICARE () PART A May 15, 2002 PART A [id number] DAGMAR,ZIA ERT PATIENT MEDICARE (WNR) MEDICARE () PART B May 15, 2002 PART B [id number] [phone] DAGMAR,ZIA ERT PATIENT MEDICARE (WNR) MEDICARE () PART A May 15, 2002 PART A [id number] DAGMAR,ZIA ERT PATIENT MEDICARE (WNR) MEDICARE () PART B May 15, 2002 PART B [id number] DAGMAR,ZAI ERT PATIENT MEDICARE (WNR) MEDICARE () PART A May 15, 2002 PART A [id number] [phone] DAGMAR,ZIA ERT PATIENT Selected Encounter This section includes the information on record at [place] for the Encounter. Date/Time Encounter Type Encounter Description Reason Pro vider Source Jun 10, 2023 02:51 PM Outpatient Encounter CLINICAL PHARMACY IHE Encounter Template Text not used by [place] Plan of Treatment: Future Appointments (+ 6 [...] 20 appointments. The data comes from all [place] treatment facilities. Appointment Date/Time Appointment Type Appointme nt Facility Name Jun 17, 2023 08:30 AM AMBULATORY - MEDICINE [place] [facility] Jun 22, 2023 09:00 AM AMBULATORY - MEDICINE [place] [facility] Aug 05, 2023 01:00 PM AMBULATORY - MEDICINE [place] [facility] Aug 07, 2023 02:00 PM AMBULATORY - REHAB MEDICIN E [place] [facility] [place] [facility] Sep 07, 2023 03:00 PM AMBULATORY - REHAB MEDICIN E [place] [facility] [place] [facility] Sep 15, 2023 11:00 AM AM[facility]ULATORY - MEDICINE [facility] Sep 16, 2023 01:00 PM AMBULATORY - MEDICINE [place] [facility] Sep 18, 2023 10:30 AM AMBULATORY - REHAB MEDICIN E [place] Sep 23, 2023 01:00 PM AMBULATORY - MEDICINE [facility] Sep 23, 2023 01:15 PM AMBULATORY - MEDICINE [facility] Sep 30, 2023 03:00 PM AMBULATORY - MEDICINE [facility] Sep 30, 2023 03:15 PM AMBULATORY - MEDICINE [facility] Oct 13, 2023 01:00 PM AMBULATORY - MEDICINE [place] [facility] October 16, 2023 01:00 PM AMBULATORY - MEDICINE [place] [facility] Lab Results: +/- 30 days of the encounter This section includes the Chemistry and Hematology Lab Results on record with [place] for the patient. Radiology Reports and Pathology Reports are provided separately, in subsequent sections. Lab Results This section contains the Chemistry/Hematology Results that were resulted 30 days before or 30 daysafter the date of the Encounter. Date/Time Source Result Type Result - Unit Interpretation Reference Range Comment May 27, 2023 01:06 PM [place] MAGNESIUM Specimen Type: SERUM No comment entered. Ordering Provider: MARGARITA DIAMOND Report Released Date/Time: May 11, 2023 01:25 PM Reporting Lab: [place] [address] [address] Performing Lab: [facility] [address] [facility] [address] MAGNESIUM 1.3 mg/dL L 1.6-2.6 May 27, 2023 01:06 PM [place] BASIC METABOLIC PANEL (non-fasting) Spe cimen Type: SERUM No comment entered. Ordering Provider: MARGARITA DIAMOND Report Released Date/Time: May 11, 2023 01:25 PM Reporting Lab: [facility] [address] [facility] [address] Performing Lab: [facility] [address] [facility] [address] UREA NITROGEN 32 mg/dL H 7-25 GLUCOSE 179 mg/dL H 65-100 SODIUM 136 mmol/L 135-145 POTASSIUM 4.7 mmol/L 3.5-5.0 CHLORIDE 100 mmol/L 100-110 CO2 25 meq/L 20-30 CREATININE, Serum 1.67 mg/dL H 0.50-1.40 eGFR(CKD-EPI 2020) 40 mL/min L >60 Social History: Smoking Status (Most current) and Tobacco Use (All prior to encounter date) This section includes the most current, and the historical, smoking and tobacco- related health factors from the [place] facility where the Encounter took place. Current Smoking Status This section includes the most current smoking, or tobacco-related health factor, from the [place] facility where the Encounter took place. Date/Time Current Smoking Status Comment Jesus fall Apr 15, 2022 01:00 PM VA-TOBACCO NEVER USED [facility] Encounter Notes: All associated encounter notes This section contains the clinical notes associated to the Encounter. Date/Time Encounter Note(s) Provider Source Jun 10, 2023 02:51 PM DIABETOLOGY NOTE: LOCAL TITLE: INSULIN PUMP/CGM DOWNLOAD (T) STANDARD TITLE: DIABETOLOGY NOTE DATE OF NOTE: JUN 10, 2023@14:51 ENTRY DATE: JUN 10, 2023@14:51:19 AUTHOR: TARUN GILL EXP COSIGNER: URGENCY: STATUS: COMPLETED Please select: Personal Continuous Glucose Monitor- DEXCOM G7 Date of Documentation:May Please see attached scanned document in [employer] /radhames/ TARUN GILL CLINICAL COST ACCOUNTING ANALYST Signed: 06/10/2023 14:51 TARUN GILL
--- OUTSIDE RECORDS SUMMARY | 2024-05-24 13:09 | XMS_ITS | Continuity of Care Document ---
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 Name Role Phone Joe Adams MD, Jerald Pinzon Primary Care Physician [place] [facility] [place]24 - 05/06/24 [facility] [address] [place] [id number] Encounter Diagnosis AAA - Abdominal aortic aneurysm(Discharge Diagnosis) - 04/26/24 CAD (coronary artery disease)(Discharge Diagnosis) - 04/26/24 Diabetes mellitus type 2(Discharge Diagnosis) - 04/26/24 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) - 04/26/24 Aneurysm of right popliteal artery(Discharge Diagnosis) - 04/29/24 PVD (peripheral vascular disease)(Discharge Diagnosis) - 04/29/24 Attending Physician: Bimal Gilbert MD Admitting Physician: Bimal Gilbert MD Referring Physician: Joe Adams MD, Jerald Pinzon Encounter Type: Office Visit Allergies, Adverse Reactions, Alerts Substance Criticality Severity Reaction Reaction Severity Status colchicine-probenecid swelling Active Immunizations Given and Recorded Vaccine Date Status Refusal Reason influenza virus vaccine, inactivated 03/28/08 Give n Medications Allopurinol Tablet 100 mg, By Mouth, 2 times a day, # 60, Tot. Refills 0, 03/29/08 11:26:42 AM EDT Start Date: 03/29/08 Status: Ordered Quantity: 60.0 Unit: Repeat number: 1 amlodipine 5 mg oral tablet 5 mg, 1, tablet, By Mouth, Daily, 0 Refills Start Date: 03/27/08 Status: Ordered Repeat number: 1 Aspirin = 81 mg, Daily at bedtime, 0 Refills, Maintenance, 09/03/11 10:34:20 PM EDT Start Date: 09/03/11 Status: Ordered Repeat number: 1 ferrous sulfate 325 mg oral enteric coated tablet 45 each, 0 Refill(s), TAKE ONE TABLET BY MOUTH EVERY OTHER DAY - DO NOT CHEW, CRUSH OR SPLIT, Refills 0, 11/18/23 1:06:00 PM EDT, Partial fill upon patient request if the prescription is for a scheduleII opioid drug. Start Date: 11/18/23 Status: Ordered Repeat number: 1 Fish Oil oral capsule 1, tablet, By Mouth, 2 times a day, 0 Refills Start Date: 03/27/08 Status: Ordered Repeat number: 1 folic acid 0.4 mg oral tablet 1 tablet = 0.4 mg, By Mouth, Daily, # 100 tablet, 0 Refills, Maintenance, 04/23/15 1:28:14 PM EST, Tablet Start Date: 04/23/15 Status: Ordered Quantity: 100.0 Unit: tablet Repeat number: 1 furosemide 20 mg oral tablet 1 tablet = 20 mg, By Mouth, Daily, 0 Refills, Maintenance, 04/11/10 10:39:57 AM EDT Start Date: 04/11/10 Status: Ordered Repeat number: 1 glipiZIDE 10 mg oral tablet, extended release 1 tablet = 10 mg, By Mouth, 2 times a day, # 30 tablet, 0 Refills, Maintenance, 10/15/19 4:16:00 PM EDT, ER Tablet Start Date: 10/15/19 Status: Ordered Quantity: 30.0 Unit: tablet Repeat number: 1 Insulin Aspart-Insulin Aspart Protamine FlexPen 30 units-70 units/mL subcutaneous suspension 24 Unknown, Subcutaneous, 0 Refill(s), Inject 24 Units under the skin in the morning and 24 Units in the evening. 20 units at night .., 0 Refills, 11/18/23 1:06:00 PM EDT, Partial fill upon patient request if the prescription is for a schedule II opioid drug. Start Date: 11/18/23 Status: Ordered Repeat number: 1 lisinopril 5 mg oral tablet 1, tablet, By Mouth, Daily, # 30 tablet, Refills 5, Maintenance, 07/14/22 7:33:00 AM EST, Route to Pharmacy Electronically, [id number], 179, cm, 04/30/22 9:42:00 EST, Height Start Date: 07/14/22 Status: Ordered Quantity: 30.0 Unit: tablet Repeat number: 1 MagneBind 400 By Mouth, 3 times a day, 420 ONCE A DAY, 0 Refills, Maintenance, 11/18/23 1:05:00 PM EDT, Partial fill upon patient request if the prescription is for a schedule II opioid drug. Start Date: 11/18/23 Status: Ordered Repeat number: 1 metformin 500 mg oral tablet 1 tablet = 500 mg, By Mouth, 2 times a day, 0 Refills, Maintenance, 04/11/10 10:39:39 AM EDT Start Date: 04/11/10 Status: Ordered Repeat number: 1 niacin 500 mg oral capsule 2 tabs am 1 tab pm, 0 Refills, Maintenance, 04/29/13 12:57:48 PM EST, Capsule Start Date: 04/29/13 Status: Ordered Repeat number: 1 Nitroglycerin 0.4mg Sublingual Tablet See Instructions, Put one tablet under the tongue every 5 minutes as needed for chest pain, # 20, 2Refills, 04/23/07 1:12:51 PM EST Start Date: 04/23/07 Status: Ordered Quantity: 20.0 Unit: Repeat number: 3 NovoLIN 70/30 FlexPen See Instructions, 24 units in the morning and 20 units at night, Subcutaneous Injection 2 times a day with meals, 0 Refills, Maintenance, 05/05/19 9:42:58 AM EST Start Date: 05/05/19 Status: Ordered Repeat number: 1 omeprazole 20 mg oral enteric coated tablet 1 tablet = 20 mg, By Mouth, 2 times a day, 0 Refills, 03/27/08 3:39:39 PM EDT Start Date: 03/27/08 Status: Ordered Repeat number: 1 Ozempic 2 mg/3 mL (0.25 mg or 0.5 mg dose) subcutaneous solution = 0.5 mg, Subcutaneous Injection, Every week, rotate injection sites, # 1 each, 0 Refills, Maintenance, 03/31/23 10:56:00 AM EDT, Solution, Partial fill upon patient request if the prescription is for a schedule II opioid drug. Start Date: 03/31/23 Status: Ordered Quantity: 1.0 Unit: each Repeat number: 1 Plavix Tablet 75 mg, By Mouth, Daily, # 30, Tot. Refills 0, 03/29/08 11:26:38 AM EDT Start Date: 03/29/08 Status: Ordered Quantity: 30.0 Unit: Repeat number: 1 simvastatin 20 mg oral tablet 20 mg, 1, tablet, By Mouth, Daily at bedtime, # 30 tablet, Refills 0, Maintenance, 03/31/23 10:56:00 AM EDT, Partial fill upon patient request if the prescription is for a schedule II opioid drug. Start Date: 03/31/23 Status: Ordered Quantity: 30.0 Unit: tablet Repeat number: 1 Toprol XL 100 mg oral tablet, extended release 1 tablet = 100 mg, By Mouth, Daily at bedtime, 0 Refills, Maintenance, 09/03/11 10:35:26 PM EDT Start Date: 09/03/11 Status: Ordered Repeat number: 1 TriCor 145 mg oral tablet 1 tablet = 145 mg, By Mouth, Daily, 0 Refills, Maintenance, 04/11/10 10:40:46 AM EDT Start Date: 04/11/10 Status: Ordered Repeat number: 1 Vitamin B12 = 2,500 mcg, By Mouth, Daily, 0 Refills, Maintenance, 05/20/17 8:43:51 AM EST Start Date: 05/20/17 Status: Ordered Repeat number: 1 Problem List Condition Confirmation Course Effective Dates Status H ealth Status Informant AAA - Abdominal aortic aneurysm Confirmed Active Aneurysm of right popliteal artery Confirmed Active Cholelithiasis Confirmed Active CAD - Coronary artery disease Confirmed Active Carotid atherosclerosis Confirmed Active CKD (chronic kidney disease), stage III Confirmed Active CKD stage 3 due to type 2 diabetes mellitus Confirmed Active Claudication Confirmed Active CAD (coronary artery disease) Confirmed Active Diabetes mellitus type 2 Confirmed Active Dyslipidemia Confirmed Active Gout Confirmed Active Hypertension Confirmed Active Atherosclerosis of [place] arteries of extremities with intermittent claudication, bilateral legs Confirmed Active Obese class I Confirmed Active Peripheral neuropathy Confirmed Active PVD (peripheral vascular disease) Confirmed Active PVD - Peripheral vascular disease Confirmed Active Diagnosis Diagnosis Type Effective Dates Health Status Cl inical Service Informant AAA - Abdominal aortic aneurysm Discharge Diagnosis 11/12/24 CAD (coronary artery disease) Discharge Diagnosis 04/26/24 Diabetes mellitus type 2 Discharge Diagnosis 04/26/24 CKD stage 3 due to type 2 diabetes mellitus Discharge Diagnosis 04/26/24 Aneurysm of right popliteal artery Discharge Diagnosis 04/29/24 PVD (peripheral vascular disease) Discharge Diagnosis 04/29/24 Vital Signs Most recent to oldest [Reference Range]: 1 Height 179 cm (04/29/24 3:57 PM) Oxygen Saturation [94-100 %] 97 % (04/29/24 3:57 PM) Pulse Rate [55-90 bpm] 11 bpm *L* (04/29/24 3:57 PM) Blood Pressure [90-138/55-84 mm Hg] 110/ 70mm Hg (04/29/24 3:57 PM) Mode of Delivery (Oxygen) Room air (04/29/24 3:57 PM) Blood pressure sites Arm, right (04/29/24 3:57 PM) Weight Obtained Via Patient/family state d (04/29/24 3:57 PM) Social History Social History Type Response Smoking Status Never smoker entered on: 04/19/14 Sex Sex Representation Male (finding) Implantable Device List Procedure Provider Procedure Date Device Type Site Repair Hernia Umbilical Open Marko MACK, [facility] 10/13/19 U nknown Umbilicus Device Identifier Serial Number Lot or Batch Number Manufacturing Date Expiration Date Distinct Identification Code MRI Safety Implantable Status Assigning Authority [id number] Unknown [id number] Unknown 03/12/21 Unknown Unknown Active GS1 Note * Shreya Adler: PERFORM Event Display: Patient Education/Instruction Authored Date: [id number] Ambulatory Adult Visit Summary [facility] [address] [facility] [address] [place] [address] Name: ORLY LEAVITT : 1935?? Visit: 04/29/2024 15:54?? Ambulatory Visit Instructions ?? Your Care Team Primary Care Provider Joe Adams MD, Jerald Pinzon? 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 Diastolic Blood Pressure: 70 mm Hg ?? Oxygen Saturation: 97 % ?? What to do next Follow-Up Appointments Follow Up with??[facility] When:??04/19/2025 08:00 AM EST Where: [address] [place] [phone] Medications The list below reflects the information in our records and provided by you today along with any changes made during this visit. Please continue your medications until treatment is completed or stopped by your provider. If this is different from the information you have or there are other questions,please contact the prescribing provider. What How Much When Instructions Unchanged Allopurinol (Allopurinol Tablet) 100 Milligram Oral Twice a day Unchanged Amlodipine (amlodipine 5 mg oral tablet) 1 tab(s) Oral Daily Unchanged Aspirin 81 Milligram Daily at Bedtime Unchanged Calcium Carbonate-Magnesium Carbonate (MagneBind 400) Oral 3 times a day 420 ONCE A DAY ?? Unchanged Clopidogrel (Plavix Tablet) 75 Milligram Oral Daily Unchanged Cyanocobalamin (Vitamin B12) 2,500 Microgram Oral Daily Unchanged Fenofibrate (TriCor 145 mg oral tablet) 1 tab(s) Oral Daily Unchanged Ferrous Sulfate (ferrous sulfate 325 mg oral enteric coated tablet) 45 each, 0 Refill(s), TAKE ONE TABLET BY MOUTH EVERY OTHER DAY - DO NOT CHEW, CRUSH OR SPLIT ?? Unchanged Folic Acid (folic acid 0.4 mg oral tablet) 1 tab(s) Oral Daily Unchanged Furosemide (furosemide 20 mg oral tablet) 1 tab(s) Oral Daily Unchanged GlipiZIDE (glipiZIDE 10 mg oral tablet, extended release) 1 tab(s) Oral Twice a day Unchanged Insulin Aspart-Insulin Aspart Protamine (Insulin Aspart-Insulin Aspart Protamine FlexPen 30 units-70 units/ mL subcutaneous suspension) 24 Unknown, Subcutaneous, 0 Refill(s), Inject 24 Units under the skin in the morning and 24 Units in the evening. 20 units at night .. ?? Unchanged Insulin Isophane-Insulin Regular (NovoLIN 70/ 30 FlexPen) See instructions 24 units in the morning and 20 units at night, Subcutaneous Injection 2 times a day with meals ?? Unchanged Lisinopril (lisinopril 5 mg oral tablet) 1 tab(s) Oral Daily Unchanged Metformin (metformin 500 mg oral tablet) 1 tab(s) Oral Twice a day Unchanged Metoprolol (Toprol XL 100 mg oral tablet, extended release) 1 tab(s) Oral Daily at Bedtime Unchanged Niacin (niacin 500 mg oral capsule) 2 tabs am 1 tab pm ?? Unchanged Nitroglycerin (Nitroglycerin 0.4mg Sublingual Tablet) See Instructions Put one tablet under the tongue every 5 minutes as needed for chest pain ?? Unchanged [place]-3 Polyunsaturated Fatty Acids (Fish Oil oral capsule) 1 tab(s) Oral Twice a day Unchanged Omeprazole (omeprazole 20 mg oral enteric coated tablet) 1 tab(s) Oral Twice a day Unchanged semaglutide (Ozempic 2 mg/ 3 mL (0.25 mg or 0.5 mg dose) subcutaneous solution) 0.5 Milligram Subcutaneous Injection Every week rotate injection sites ?? Unchanged Simvastatin (simvastatin 20 mg oral tablet) 1 tab(s) Oral Daily at Bedtime Medications and Immunizations Administered Medications Given During Visit No medications given during this visit.?? Allergies (NKA means No Known Allergies) colchicine-probenecid??(swelling) Common Emergency Awareness Tips IS IT A STROKE? Act FAST and Check for these signs: FACE Does the face look uneven? ARM Does one arm drift down? SPEECH Does their speech sound strange? TIME Call at any sign of stroke ?? Heart Attack Signs Chest discomfort: Most heart attacks involve discomfort in the center of the chest and lasts more than a few minutes, or goes away and comes back. It can feel like uncomfortable pressure, squeezing, fullness or pain. Discomfort in upper body: Symptoms can include pain or discomfort in one or both arms, back, neck, jaw or stomach. Shortness of breath: With or without discomfort. Other signs: Breaking out in a cold sweat, nausea, or lightheaded. Remember, MINUTES DO MATTER. If you experience any of these heart attack warning signs, call to get immediate medical attention! ?? Smoking can increase your chances of developing chronic health problems and can cause harmful effects to other family members in your house. If you smoke, you are strongly encouraged to quit. Please call [facility] at [phone] or [phone] ([phone]) or log in to [email or web address] for referrals to smoking cessation programs. ?? The National Suicide Prevention Hotline is available 05/01 if you or someone you know needs to find a reason to keep living. By calling 4-380-798-[employer] (9026) you'll be connected to a skilled, trained counselor at a crisis center in your area. [facility] You can view and manage your care through the patient portal or by using a health care veto of your choosing. [employer] is a website that allows you to securely view your medical information including your hospital discharge summary, office visit summaries, medications and follow-up visits. You can also request appointments, renew medications, and request access to your medical information using a health care veto of your choosing, or just ask a question. You can enroll at [email or web address] or register during your next office visit. [facility], in keeping with [facility] guidance, no longer requires face masks for staff, patientsor visitors in most situations. Similiar to time spent indoors at other locations, there is the chance that you were exposed to repiratory viruses during your time with us (such as flu or COVID-19). If you develop symptoms concerning for a viral respiratory infection, please seek testing (and treatment if indicated) from your medical provider or home test kit. ?? Disclaimer: The information provided is of a general nature and is intended to be used in conjunction with the recommendations and advice of your health care practitioner. Every effort has been made to ensure that the information provided is accurate and complete at the time it is provided to you however, as your needs change, or, as new information becomes available, different or additional instructions may be required. ?? If you have questions, please consult with your primary care provider or pharmacist, as appropriate. This information is not intended to serve as substitution for assessment and evaluation by a qualified health care provider. If you do not have a primary care provider, you may find a [facility] provider by calling [facility] at [phone]. Patient Care team information Care Team Personnel Name: Ember Dunham RN Position: [facility] RN Member Role: Primary Care Nurse Name: Chioma Rai Position: [facility] Machine Cloth Measurer Member Role: Lifetime Consulting Physician Name: Joe Adams MD, Jerald Pinzon Position: Reference Physician Member Role: PCP Address: [address] [place] [address] Telecom: Care Team Related Persons Name: SONA LEAVITT Name: MINDI LEAVITT Insurance Providers Guarantor name: ORLY LEAVITT Health Plan Information #: 2 Payer: MEDEX Member Number: [id number] Policy Number: NA Group Number: NA Health Plan Information #: 1 Payer: MEDICARE PART B OUTPT Member Number: [id number] Policy Number: NA Group Number: NA
--- OUTSIDE RECORDS SUMMARY | 2024-05-24 13:09 | XMS_ITS | Continuity of Care Document ---
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 Project Engineer Name Role Phone Joe Adams MD, Jerald Pinzon Primary Care Physician [place] [facility] [place] 05/20/24 [facility] [address] [place] [id number] Attending Physician: Bimal Gilbert MD Admitting Physician: Bimal Gilbert MD Referring Physician: Bimal Gilbert MD Encounter Type: Pre-Outpt Allergies, Adverse Reactions, Alerts Substance Criticality Severity [...] to Pharmacy Electronically, [id number], 179, cm, 04/30/22 9:42:00 EST, Height Start [...] Confirmed Active Hypertension Confirmed Active Atherosclerosis of [place] arteries of extremities with intermittent claudication, bilateral legs Confirmed Active Obese class I Confirmed Active Peripheral neuropathy Confirmed Active PVD (peripheral vascular disease) Confirmed Active PVD - Peripheral vascular disease Confirmed Active Social History Social History Type Response Smoking Status Never smoker entered on: 04/19/14 Sex Sex Representation Male (finding) Implantable Device List Procedure Provider Procedure Date Device Type Site Repair Hernia Umbilical Open Marko MACK, [facility] 10/13/19 U nknown Umbilicus Device Identifier Serial Number Lot or Batch Number Manufacturing Date Expiration Date Distinct Identification Code MRI Safety Implantable Status Assigning Authority [id number] Unknown [id number] Unknown 03/12/21 Unknown Unknown Active GS1 Patient Care team information Care Team Personnel Name: Ember Dunham RN Position: [facility] RN Member Role: Primary Care Nurse Name: Chioma Rai Position: [facility] Retirement Manager Member Role: Lifetime Consulting Physician Name: Joe Adams MD, Jerald Pinzon Position: Reference Physician Member Role: PCP Address: [address] [place] [phone] Telecom: Care Team Related Persons Name: SONA LEAVITT Name: MINDI LEAVITT Insurance Providers Guarantor name: ORLY LEAVITT Health Plan Information #: 1 Payer: MEDICARE PART B OUTPT Member Number: [id number] Policy Number: NA Group Number: NA Health Plan Information #: 2 Payer: MEDEX Member Number: [id number] Policy Number: NA Group Number: NA
--- OUTSIDE RECORDS SUMMARY | 2024-05-24 13:09 | XMS_ITS | Encounter Summary ---
Author Name [facility] [place] [facility] [place] [facility] [place] Address [address] [place] [id number] Care Team Providers Care Career Development Specialist Name Role Phone MARGARITA FLOREZ Primary Care [...] Relationship to Policy Bejarano [place] [facility] Dec 13, 2013 [id number] [phone] DAGMAR,ZIA ERT PATIENT [place]BS [place] MEDICARE SUPP[facility] November 06, 2007 [id number] DAGMAR,ZIA ERT PATIENT [place] MEDICARE SUPPLEMEN [facility] 2 November 06, 2007 [id number] [phone] DAGMAR,ZIA ERT PATIENT [place] SUPPLEMEN [facility] [facility] 2 November 06, 2007 [id number] DAGMAR,ZIA ERT PATIENT BCBS OF [facility] MEDICARE SUPPLEMEN [facility] Dec 13, 2013 [id number] [phone] DAGMAR,ZIA ERT PATIENT [place] MED[place] SUPPLEMEN [facility]/ WHITM AN/MX Dec 13, 2008 [id number] DAGMAR,ZIA ERT PATIENT MEDICARE (WNR) MEDICARE () PART B May 15, 2012 PART B [id number] DAGMAR,ZIA ERT PATIENT MEDICARE (WNR) MEDICARE () PART A May 15, 2002 PART A [id number] DAGMAR,ZIA ERT PATIENT MEDICARE (WNR) MEDICARE () PART B May 15, 2002 PART B [id number] DAGMAR,ZIA ERT PATIENT MEDICARE (WNR) MEDICARE () PART A May 15, 2002 PART A [id number] DAGMAR,ZIA ERT PATIENT MEDICARE (WNR) MEDICARE () PART B May 15, 2002 PART B [id number] DAGMAR,ZIA ERT PATIENT MEDICARE (WNR) MEDICARE () PART A May 15, 2002 PART A [id number] DAGMAR,ZIA ERT PATIENT MEDICARE (WNR) MEDICARE () PART B May 15, 2002 PART B [id number] DAGMAR,ZIA ERT PATIENT MEDICARE (WNR) MEDICARE () PART A May 15, 2002 PART A [id number] [phone] DAGMAR,ZIA ERT PATIENT Selected Encounter This section includes the information on record at [place] for the Encounter. Date/Time Encounter Type Encounter Description Reason Provider Source Jun 10, 2023 12:00 PM MTMS BY PHARM SOFIL 15 MIN CLINICAL PHARMACY ICD-10-CM E11.9 Type 2 diabetes mellitus without complications TAMMY GILL [place] Encounter Template Text not used by [place] Assessments - Encounter Diagnoses This section includes the primary and secondary diagnoses documented for the Encounter. Date/Time Primary/Secondary Diagnosis Diagnosis Name Provider Source Jun 10, 2023 02:41 PM PRIMARY Type 2 diabetes mellitus without complications NIK GILL [place] Plan of Treatment: Future Appointments (+ 6 months) and Future Tests (+/- 45 days) The Plan of Treatment section includes future care activities for the patient [facility] [place] [facility] This section includes future appointments and future orders which are active, pending or scheduled. Future Appointments This section includes appointments that were scheduled to occur 6 months from the date of the Encounter, up to a maximum of 20 appointments. The data comes from all [place] treatment facilities. Appointment Date/Time Appointment Type Appointme nt Facility Name Jun 17, 2023 08:30 AM AM[place]ULATORY [place]INE [place] [facility] Jun 22, 2023 09:00 AM [place] [facility] [place] [facility] Aug 05, 2023 01:00 PM AM[place]UL[place]INE [place] [facility] [facility] Aug 07, 2023 02:00 PM AMBULATORY - [place] MEDICIN [place] [facility] [facility] Sep 07, 2023 03:00 PM AMBULAT[place] - [place] [facility] Sep 15, 2023 11:00 AM [facility] Sep 16, 2023 01:00 PM [place] [place] [facility] [facility] Sep 18, 2023 10:30 AM AMBULATORY - REH[place] MEDICIN [place] Sep 23, 2023 01:00 PM [facility] Sep 23, 2023 01:15 PM [facility] Sep 30, 2023 03:00 PM [facility] - [facility]ICINE [facility] Sep 30, 2023 03:15 PM AMBULATORY - MEDICINE [facility] Oct 13, 2023 01:00 PM AM[place]UL[place]ORY [place]ICINE [place] [facility] October 16, 2023 01:00 PM AMBULATORY - [place]ICINE [place] [facility] [facility] Lab Results: +/- 30 days of the encounter This section includes the Chemistry and Hematology Lab Results on record with [place] for the patient. Radiology Reports and Pathology Reports are provided separately, in subsequent sections. Lab Results This section contains the Chemistry/Hematology Results that were resulted 30 days before or 30 daysafter the date of the Encounter. Date/Time Source Result Type Result - Unit Interpretation Reference Range Comment May 27, 2023 01:06 PM [place] MAGNESIUM Specimen Type: SERUM No comment entered. Ordering Provider: MARGARITA DIAMOND Report Released Date/Time: May 11, 2023 01:25 PM Reporting Lab: [address] [address] Performing Lab: [address] [address] MAGNESIUM 1.3 mg/dL L 1.6-2.6 May 27, 2023 01:06 PM [place] BASIC METABOLIC PANEL (non-fasting) Spe cimen Type: SERUM No comment entered. Ordering Provider: MARGARITA DIAMOND Report Released Date/Time: May 11, 2023 01:25 PM Reporting Lab: [address] [address] Performing Lab: [address] [address] UREA NITROGEN 32 mg/dL H 7-25 GLUCOSE [...] and tobacco- related health factors from the [place] facility where the Encounter took place. Current Smoking Status This section includes the most current smoking, or tobacco-related health factor, from the [place] facility where the Encounter took place. Date/Time Current Smoking Status Comment Jesus fall Apr 28, 2023 03:00 PM [place]-TOBACCO NEVER USED [place] Tobacco Use History This section includes a history of the smoking, or tobacco-related health factors, that were collected on or before the date of the Encounter. The data comes from the [place] facility where the Encounter took place. Date/Time Smoking Status/Tobacco Use Comment F acmelissa Apr 09, 2021 10:00 AM [place]-TOBACCO NEVER USED [place] Mar 13, 2020 12:30 PM [place]-TOBACCO NEVER USED [place] Feb 02, 2018 02:02 PM [facility]-TOBACCO NEVER USED [place] Mar 10, 2017 01:57 PM LIFETIME NON-TOBACCO USER [place] Feb 11, 2016 02:44 PM LIFETIME NON-TOBACCO USER [place] May 09, 2009 09:43 AM LIFETIME NON-TOBACCO USER [place] Encounter Notes: All associated encounter notes This section contains the clinical notes associated to the Encounter. Date/Time Encounter Note(s) Provider Source Jun 10, 2023 12:32 PM PHARMACY OUTPATIEN T NOTE: LOCAL TITLE: PHARMACY CLINIC NOTE STANDARD TITLE: PHARMACY OUTPATIENT NOTE DATE OF NOTE: JUN 10, 2023@12:32 ENTRY DATE: JUN 10, 2023@12:32:18 AUTHOR: TARUN GILL COSIGNER: URGENCY: STATUS: COMPLETED Patient Name: ORLY LEAVITT was seen via F for follow-up for diabetes management treatment. : May Age: 87 Sex: MALE Race: WHITE Subjective:Pt presents to the visit w/ his dtr. stating he is doing well. At this time he has no concerns but ran out of insulin novolog mix [facility] Pt continues to be doing very well on ozempic w/ no ADR's. Per prev: Pt presents for a f/up w/ his dtr. Pt states BG are much better. HE continues with his activities. Dtr very involved, sleeps over pt's house on weekends. Per prev: Pt presents for a f/up w/ his dtr. Pt states that his dexcom sensor failed again. Dtr called the company to replace it. Dtr also reports significant discrepancies of ~ 100 points between tammy sensor and the finger stick. Per prev: Pt presents to the visit w/ Mindi his dtr and for nona upload. Pt states he is doing well no changes he is meeting his twin brother after the visit at the mall for his daily walk. per prev: Pt presents w/ his dtr Mindi for a f/up and nona pro placement. Mindi brought all of the pt's medication list. Medication reconcilliation was performed. per prev: pt was diagnosed w/ T2D but suspects he has had dm for much longer. Pt's dtrs usually comes to the visit w/ pt. Pt has had 6 stents placed. Pt's vehicle modification technician Dr. Flannery in [place]. Dr. Ríos is the assistant teacher primary on the outside. Pt lives w/ his Per consult from PCP pt is interested in obtaining sensor from the [place]. Target Goals: A1C: 7%; FB-130 mg/dL; 2HRS PP <180mg/dL. Allergies: COLCHICINE/PROBENECID PERTINENT INFORMATION: Active problems - Computerized Problem List is the source for the followin. Obstructive Sleep Apnea of Adult (RUST [id number]) 2. Prostate Cancer (RUST [id number]) 3. Chronic kidney disease stage 3 4. Low Back Pain * 5. Vitamin B 12 Deficiency 6. 2009: Colonoscopy: Polypectomy 7. 11-08-09: PFT: Normal 8. Abdominal aortic aneurysm (SNOMED CT 055357007) 9. Benign essential hypertension (SNOMED CT 9609183) 10. Venous insufficiency of leg (SNOMED CT 155022797) 11. Other dyspnea and respiratory abnormality 12. Coronary arteriosclerosis (SNOMED CT 99654348) 13. CAD: 2005:PTCA 5 TaxusStents: LADx2 RCAx2 Prox RCA x1 14. Gout 15. Hyperglycemia due to type 2 diabetes mellitus (SNOMED CT [id number]) 16. Gastroesophageal Reflux Disorder 17. Hyperlipidemia (SNOMED CT 30053099) 18. 1957: 2 rt inguinal hernia repair/[place] 19. 1969: Lipoma Removal 20. Tonsillectomy and Adenoidectomy (under age 12) 21. FAM HX-ISCHEM HEART DIS Objective: Diabetes Medication Regimen: -- metformin 500 mg bid - decreased d/t CKD -- semaglutide 0.5 mg weekly (Wednesdays) -- Insulin Novolog mixed pen 6:30-7AM = 24 units 6 PM = 20 units - TDD: 44 units Previous DM Medications: - metformin - pt is not sure why he stopped ? eGFR 40 ml/min - restarted on 03/2023 -- Trulicity 1.5 mg weekly (Wednesdays) - switched over to semagluitde at [place] - glipizide - stopped 04/2023 Adherence: Oral meds: denies missed doses Insulin: denies missed doses Labs: HEMOGLOBIN A1C TREND Collection DT Spec HGBA1c 04/20/2023 09:44 BLOOD 7.3 H 10/16/2022 09:25 BLOOD 8.3 H 04/08/2022 09:33 BLOOD 9.0 H 10/08/2021 09:32 BLOOD 7.5 H 04/02/2021 09:25 BLOOD 7.4 H CBC TREND Collection DT Spec WBC RBC HGB HCT MCV MCH PLT 04/20/2023 09:44 BLOOD 7.09 4.13 L 12.6 L 38.6 L 93.5 30.5 117 L 10/16/2022 09:25 BLOOD 7.20 4.18 L 12.8 39.2 93.8 30.6 116 L 04/08/2022 09:33 BLOOD 8.05 4.30 12.9 39.5 91.9 30.0 141 10/08/2021 09:31 BLOOD 8.72 4.14 L 12.8 39.4 95.2 30.9 158 04/02/2021 09:25 BLOOD 6.72 4.19 L 13.0 39.1 L 93.3 31.0 135 L CHEM 7 TREND LAB CUMULATIVE SELECTED Collection DT Spec GLUCOSE BUN CREATIN Sodium K+/Pot CL CO2 04/20/2023 09:44 SERUM 175 H 29 H 1.87 H 139 4.3 106 24 10/16/2022 09:25 SERUM 120 H 34 H 1.64 H 139 4.0 103 25 04/08/2022 09:33 SERUM 204 H 28 H 1.77 H 138 4.0 102 25 10/08/2021 09:31 SERUM 225 H 25 1.43 H 139 4.3 106 23 04/02/2021 09:25 SERUM 152 H 23 1.26 139 4.0 104 24 Collection DT Spec eGFR 05/16/2009 08:55 SERUM >60 LAB CUMULATIVE SELECTED 2 No selection items chosen for this component. CHEM 7 Results Collection DT Spec Sodium K+/Pot CL CO2 GLUCOSE BUN eGFR 04/20/2023 09:44 SERUM 139 4.3 106 24 175 H 29 H 10/16/2022 09:25 SERUM 139 4.0 103 25 120 H 34 H 04/08/2022 09:33 SERUM 138 4.0 102 25 204 H 28 H 10/08/2021 09:31 SERUM 139 4.3 106 23 225 H 25 04/02/2021 09:25 SERUM 139 4.0 104 24 152 H 23 03/20/2020 08:47 SERUM 138 4.2 103 24 177 H 26 H 03/15/2019 09:16 SERUM 138 4.3 103 25 211 H 27 H 03/16/2018 08:48 SERUM 138 4.1 103 25 147 H 20 02/26/2017 09:31 SERUM 140 4.4 103 26 151 H 20 02/06/2016 07:53 SERUM 138 4.4 104 25 175 H 20 01/10/2015 08:52 SERUM 137 4.4 104 26 184 H 16 11/15/2013 10:18 SERUM 139 4.5 104 24 189 H 15 03/25/2013 08:44 SERUM 133 L 3.9 98 L 27 268 H 22 08/13/2012 08:32 SERUM 137 4.1 102 26 179 H 19 12/24/2011 08:06 SERUM 138 4.3 104 25 173 H 18 07/29/2011 08:25 SERUM 138 4.4 104 25 176 H 17 12/12/2010 08:42 SERUM 137 4.1 106 19 L 182 H 16 11/01/2009 09:42 SERUM 138 4.1 107 22 148 H 19 05/16/2009 08:55 SERUM 139 4.2 106 25 135 H 16 >60 LIPID PANEL TREND Collection DT Spec CHOL HDL CHO/HDL LDL-d LDL-c TRIG 04/20/2023 09:44 SERUM 128 42 3.0 44 208 H 10/16/2022 09:25 SERUM 130 39 L 3.3 48 214 H 04/08/2022 09:33 SERUM 133 37 L 3.6 47 246 H 10/08/2021 09:31 SERUM 126 39 L 3.2 44 217 H 04/02/2021 09:25 SERUM 134 37 L 3.6 47 249 H THYROID PANEL Collection DT Specimen Test Name Result Units Ref Range 04/20/2023 09:44 SERUM TSH 1.38 uIU/mL 0.35 - 5.00 VITAMIN D 25-OH Collection DT Specimen Test Name Result Units Ref Range 10/16/2022 09:25 SERUM VITAMIN D (25-OH) 17 L ng/mL 20 - 50 SrCr (last 6 weeks): CREATININE-EGFR 04/20/23 09:44 1.87 H CRCL IBW: CrCl(est): 33.2 mL/min (Creat:1.87 04/20/23) CRCL ACT: 41.3 mL/min CRCL ADJ: 33.2 mL/min (04/20/23) lft's: wnl 10/2022 Vitals: Weight (BMI): 222.4 lb [100.88 kg] (04/28/2023 15:18) Height: 70 in [177.8 cm] (10/15/2021 14:15) BMI: 32.0 Active and Recently Outpatient Medications (including Supplies): Active Outpatient Medications Status Active Outpatient Medications (including Supplies): ACCU-CHEK GUIDE (GLUCOSE) TEST STRIP USE 1 STRIP TO TEST ACTIVE BLOOD SUGARS TWICE DAILY ACCU-CHEK GUIDE ME (GLUCOSE) METER USE METER TO TEST BLOOD ACTIVE SUGARS ONCE DAILY ALLOPURINOL 100MG TAB TAKE ONE TABLET BY MOUTH TWICE DAILY ACTIVE FOR GOUT AMLODIPINE BESYLATE 5MG TAB TAKE ONE TABLET BY MOUTH ONCE ACTIVE DAILY FOR BLOOD PRESSURE/HEART, DO NOT TAKE WITH GRAPEFRUIT JUICE CARBOXYMETHYLCELLULOSE NA 0.5% OPH SOLN INSTILL 1 DROP ACTIVE INTO EACH EYE FOUR TIMES DAILY NEEDED FOR DRY EYE CLOPIDOGREL BISULFATE 75MG TAB TAKE ONE TABLET BY MOUTH ACTIVE ONCE DAILY TO PREVENT BLOOD CLOTS FENOFIBRATE 145MG TAB TAKE ONE TABLET BY MOUTH AT BEDTIME ACTIVE (S) TO LOWER CHOLESTEROL FUROSEMIDE 40MG TAB TAKE ONE TABLET BY MOUTH ONCE DAILY TO ACTIVE REMOVE FLUID/CONTROL BLOOD PRESSURE GABAPENTIN 300MG CAP TAKE ONE CAPSULE BY MOUTH AT BEDTIME ACTIVE GLIPIZIDE 5MG TAB TAKE ONE TABLET BY MOUTH TWICE DAILY HOLD GLUCOSE SENSOR DEXCOM G7 USE 1 SENSOR DIRECTED EVERY 10 ACTIVE DAYS LANCET,SOFTCLIX USE 1 LANCET TOPICALLY ONCE DAILY TO TEST ACTIVE BLOOD SUGAR LISINOPRIL 5MG TAB TAKE ONE TABLET BY MOUTH ONCE DAILY TO ACTIVE (S) CONTROL BLOOD PRESSURE LUBRICATING (PF) OPH OINT APPLY THIN RIBBON INTO EACH EYE ACTIVE AT BEDTIME MAGNESIUM OXIDE 420MG TAB TAKE ONE TABLET BY MOUTH TWICE ACTIVE DAILY FOR MAGNESIUM SUPPLEMENTATION METFORMIN HCL 500MG 24HR SA TAB TAKE TWO TABLETS BY MOUTH ACTIVE ONCE DAILY METOPROLOL SUCCINATE 100MG SA TAB TAKE ONE TABLET BY MOUTH ACTIVE (S) ONCE DAILY FOR BLOOD PRESSURE/HEART NIACIN (SLO-NIACIN) 750MG TAB,SA TAKE ONE TABLET BY MOUTH ACTIVE TWICE DAILY OMEPRAZOLE 20MG EC CAP TAKE ONE CAPSULE BY MOUTH TWICE ACTIVE (S) DAILY SEMAGLUTIDE 0.25MG/0.375ML INJ PEN 3ML INJECT 0.5MG ACTIVE SUBCUTANEOUSLY ONCE A WEEK FOR TYPE 2 DIABETES MELLITUS SIMVASTATIN 80MG TAB TAKE ONE-HALF TABLET BY MOUTH ONCE ACTIVE DAILY FOR CHOLESTEROL SKIN BARRIER WIPE TORBOT SKIN TAC USE 1 WIPE TOPICALLY ACTIVE EVERY 10 DAYS Non-VA ASPIRIN 81MG EC TAB 81MG BY MOUTH DAILY ACTIVE Non-VA CHOLECALCIF 25MCG (D3-1,000UNIT) TAB 25MCG BY MOUTH ACTIVE ONCE DAILY Non-VA CYANOCOBALAMIN 250MCG TAB 250MCG BY MOUTH ONCE ACTIVE DAILY Non-VA FISH OIL 1000MG (500MG DHA/EPA) CAP 1000MG BY MOUTH ACTIVE DAILY Non-VA INSULIN,ASPART,HUMAN 70/30 NOVOLOG INJ 16 UNITS ACTIVE SUBCUTANEOUSLY MEDICATION RECONCILIATION: done BLOOD GLUCOSE MONITORING Pt monitors BG once daily - morning fasting nonVA meter Fasting BG range: under 200mg/dl pt did not bring the BG meter to the visit - states he continues to SMBG once daily fasting BG only. Upload of nona pro Date: 01/06/23 13 day av mg/dl 12% VERY HIGH 37% HIGH 51% TARGET RANGE 0% LOW 0% VERY LOW A SEPERATE NOTE CAN BE FOUND IN CPRS OF FULL UPLOAD OF NONA PRO date: 02/18/23; dexcom G7 14 days av mg/dl; 31% very high 54% HIHG 11% IN RANGE 1% LOW 3% VERY LOW 86% w/ cgms data A SEPERATE NOTE CAN BE FOUND IN CPRS OF FULL UPLOAD OF dexcom G7 date: 03/18/23; dexcom G7 14 days av mg/dl; 40% very high 44% HIHG 16% IN RANGE 0% LOW 0% VERY LOW 86% w/ cgms data A SEPERATE NOTE CAN BE FOUND IN CPRS OF FULL UPLOAD OF dexcom G7 Date: 05/08/23; 14 day av mg/dl 10% VERY HIGH 32% HIGH 57% IN RANGE <1% LOW 0% VERY LOW 100 % DAYS W/ CGM DATA BG meter data: Fasting BG av mg/dl; (n=7; range: 71-203 mg/dl) Date: 06/10/23; 14 day av mg/dl 12% VERY HIGH 55% HIGH 33% IN RANGE 0% LOW 0% VERY LOW 100 % DAYS W/ CGM DATA NUTRITION: Diet Patterns: patient eats on avg. 3 x/day: B: cheerios w/ milk and bannana ;bagels snack at 10AM: apple muffin L:1PM: 1/2 sandwich on rolo bread, ham and pickle sandwich D: 6pm: home made meal pt eats a lot of soup Snacks:necktarine Drinks: mostly water ; dtr wants him to drink #3 of 16 oz water bottles/day but he usually drinks one bottle only if that Exercise: pt goes to mall every day to walk once around the entire mall - walks with his brother who happens to be identical twin and also a HYPOGLYCEMIC Events: 0 in the last 2 weeks Hypoglycemia recognition & treatment reviewed: Yes EtOH/Illicit drugs: Alcohol: denies Tobacco: denies Other: - Denies personal or fhx thyroid cancer or MENS2 - Denies hx pancreatitis Personal Goals: - Get BG under control - Lose weight ASSESSMENT/PLAN: Per prev: Reviewed the most recent upload of dexcom after last insulin dose adjustment and pt switching over from trulicity to ozempic. BG avg. went down from 243 to 176 mg/dl. Time in range improved from 16% to 56% which is terrific. This is further reflected in pt's A1C that dropped from 8.3% to 7.3%. Congratulated pt on all of his work. Reviewed the BG trends. Most of the post prandial elevation is observed after breakfast meal. Reviewed the alternative breakfast choices w/ pt and dtr i.e. eggs and toast or oatmeal instead of cereal and/or donut/muffin. Pt will try to changes on some days and dtr will assist when she is there on weekends. Pt is tolerating ozempic very well -it's helping a great deal w/prandial BG levels. At this time recommend to discontinue glipizide. Suggested to change pt over from mixed insulin to basal/bolus (I.E. 30 units of Lantus and 4 - 5 units of Novolog TID (smaller meal =4 units; bigger meal = 5 units) based on TDD of 44 units). Pt and dtr declined as transitioning to QID insulin regimen is not condusive at this time. Therefore will c/t on mixed insulin regimen at this time. Reviewed nutrition in details. ======== Date: 06/10/23 Pt ran out of insulin mixed novolog mix 70/30. Pt is requesting to obtain it from the [place]. Per above note, pt does not wish to transition to basal/bolus regimen due to too high complexity and too many injections. Informed the pt that [place] currently only has vials of novolog mix 70/30 - as the pens are on last model maker's backorder. Reviewed w/ pt and dtr how to use vial and syringe. Pt's dtr works in medical field is very well familiar how to perform injections using vials and syringes. Pt and dtr were able to demonstrate back to the securities underwriter how to use it. Will order it + syringes pt to apple picker at the pharmacy window tomorrow. Reviewed the BG upload notable continuos post prandial BG excursions. At this time recommend to increase ozempic. pt and dtr in agreement. This may furhter be able to simplify regimen for the pt - as perhaps this may replace all of the prandial needs adn pt to remain /be switched over to glargine insulin only? Will assess futher. Reviewed the upload w/ [place] and dtr. f/up end of June. adn dtr received written instructions. DIABETES A1c is above goal of <7% - Medication management Diabetes Objective: Diabetes Medication Regimen: -- INCREASE semaglutide to 1 mg weekly (Wednesdays) -- c/t metformin 500 mg bid - decreased d/t CKD -- CONTINUE Insulin Aspart mixed (VIAL) 70/30 6:30-7AM = 24 units 6 PM = 20 units - TDD: 44 units - [facility]ed [facility] - Monitor for s/sx hypoglycemia and contact clinic if BG consistently <70mg/dL - Healthy dietary and lifestyle modifications encouraged - increase water intake to minimally 40oz/day - Repeat A1c:X 3 months HTN: recent BP ; amlodipine,furosemide; lisinopril; metoprolol; BRIDGET-I/ARB - defer to PCP ASCVD: clopidogrel; ASA 81 mg daily ; fenofibrate; niacin; simvastatin, fish oil Microalb: History of Preventive Care: Most recent [facility] stitching department[facility]; seen by Dr. Reyes 2 weeks ago; Most recent visit [facility]; last visit in 2021: 1. Diabetes mellitus without retinopathy or macular edema. Clinic's Next Scheduled Follow-up: 07/15/23 No barriers; Patient understands and agrees to current treatment plan. If he has any questions, concerns, or changes in current health status he will call or come [facility] to the [facility]. FUTURE APPOINTMENTS: 09/30/2023 15:00 CWM/SO/PODIATRY/RICKY 10/13/2023 13:00 NHM/OPTOMETRY/DALE DM type is :t2d Length of Visit: 45 minutes PBM PharmD Pharmacotherapy Rem V12: PHARMACIST INTERVENTIONS: TYPE 2 DIABETES MELLITUS Medication Intervention(s) Adjust dose or frequency of current medication due to other reason Plan: ICNRESAE DOSE OF SEMAGLUTIDE Medication monitoring, no dosage change required, continue to monitor and assess /radhames/ TARUN GILL CLINICAL DIETARY SUPERVISOR Signed: 06/10/2023 14:50 Receipt Acknowledged By: 06/10/2023 15:22 /radhames/ ALLISON TURNER PA-C STAFF PHYSICIAN [employer] ARCHITECT for TARUN GARCIA
--- OUTSIDE RECORDS SUMMARY | 2024-05-24 13:09 | XMS_ITS | Continuity of Care Document ---
Author Name [facility] Organization [facility] Care Team Providers Care Sand Technician Name Role Phone [facility] Unavailable Unavailable Problems Combined list of problems from Department of Defense and Veterans Affairs facilities. It does not include entries that were removed or entered in error. Problem Status Onset Date Problem Type Date of Resolution Comments Source Hyperglycemia due to type 2 diabetes mellitus (SNOMED CT 211810114155107) Active 06/15/18 99 Condition [place] 1957: 2 rt inguinal hernia repair/[place] Active Condition May 09, 2009 Entered By: JAMES PENNY Comment: 1958: [facility]gu[facility] Entered By: JAMES PENNY Comment: 1977: Left Inguinal Hernia Repair [place] 1969: Lipoma Removal Active Condition [place] 2009: Colonoscopy: Polypectomy Active Condition [place] 11-08-09: PFT: Normal Active Condition [place] Abdominal aortic aneurysm (SNOMED CT 933763685) Active Condition November 01, 2009 Entered By: JAMES PENNY Comment: 05-21-09: Distal AAA 3.2 cm [place] Gutierrez's esophagus Active Condition [facility] Benign essential hypertension (SNOMED CT 4500283) Active Condition [place] Bone density below reference range Active Condition [facility] CAD: 2005:PTCA 5 TaxusStents: LADx2 RCAx2 Prox RCA x1 Active Condition May 09, 2009 Entered By: JAMES PENNY Comment: 09-20-06: [place] Stent CircNov 2008 Entered By: JAMES PENNY Comment: Jacque Greenberg MD: [phone] 2009 Entered By: JAMES PENNY Comment: Dr Flannery [place] Chronic kidney disease stage [address] [facility] Coronary arteriosclerosis (SNOMED CT 08108747) Active Condition [place] Diabetes Mellitus Type 2 (SCT 21553622) Active Condition [place] Diabetic nephropathy Active Condition [place] Diarrhea Active Condition [place] FAM HX-ISCHEM HEART DIS Active Condition [place] Gastroesophageal reflux disease Active Condition Apr 09, 2021 Entered By: MERY FOWLER Comment: Gutierrez's esophagus, c/w EGD q3y [place] H/O: gout Active Condition [place] Hyperlipidemia (SNOMED CT 82062250) Active Condition [place] Hypomagnesemia Active Condition [facility] Insomnia (SCT 416632063) Active Condition [place] Low Back Pain * (ICD-9-CM 724.2) Active Condition [facility] Neuropathy due to type 2 diabetes mellitus Active Condition [place] Obstructive Sleep Apnea of Adult ([facility] 6762859178779) Active Condition Jan 02, 2023 Entered By: MERY FOWLER Comment: 2022 home sleep study : SEVERE DAMIEN [place] Other dyspnea and respiratory abnormality (ICD-9-CM 786.09) Active Condition [facility] Prostate Cancer ([facility] 722846717) [facility] Tonsillectomy and Adenoidectomy (under age 12) Active Condition [facility] D Venous insufficiency of leg (SNOMED CT 726940931) Active Condition [place] Vitamin B12 deficiency Active Condition [place] hypertension Inactive Condition 01/22/2015 [facility] Social Hx: ; 2 children Inactive Condition 01/22/2015 Aug 08, 2011 Entered By: JAMES PENNY Comment: Never Smoked ETOH: Rare [place] Diagnosis: ICD-10-CM E11.9 Type 2 diabetes mellitus without complications Active Diagnosis [place] Diagnosis: ICD-10-CM L60.0 Ingrowing nail Active Diagnosis [facility] Diagnosis: ICD-10-CM E11.8 Type 2 diabetes mellitus with unspecified complications Active Diagnosis [place] Diagnosis: ICD-10-CM Z02.89 Encounter for other administrative examinations Active Diagnosis [facility] [place] [facility] Diagnosis: ICD-10-CM Z46.0 Encounter for fit/adjst of spectacles and contact lenses Active Diagnosis [facility] [place] [facility] Diagnosis: ICD-10-CM R05.9 Cough, unspecified Active Diagnosis [facility] Diagnosis: ICD-10-CM J20.9 Acute bronchitis, unspecified Active Diagnosis [place] Diagnosis: ICD-10-CM R06.00 Dyspnea, unspecified Active Diagnosis [place] Diagnosis: ICD-10-CM R26.9 Unspecified abnormalities of gait and mobility Active Diagnosis [facility] Diagnosis: ICD-10-CM Z46.1 Encounter for fitting and adjustment of hearing aid Active Diagnosis [facility] [place] [facility] Diagnosis: ICD-10-CM H90.3 Sensorineural hearing loss, bilateral Active Diagnosis [facility] [place] [facility] Diagnosis: ICD-10-CM G47.33 Obstructive sleep apnea (adult) (pediatric) Active Diagnosis [facility] [place] [facility] Diagnosis: ICD-10-CM E11.51 Type 2 diabetes w diabetic peripheral angiopath w/o gangrene Active Diagnosis [place] Diagnosis: ICD-10-CM E11.22 Type 2 diabetes mellitus w diabetic chronic kidney disease Active Diagnosis [place] Diagnosis: ICD-10-CM Z23 Encounter for immunization Active Diagnosis [place] Diagnosis: ICD-10-CM E08.8 Diabetes due to underlying condition w unsp complications Active Diagnosis [place] Diagnosis: ICD-10-CM E08.9 Diabetes due to underlying condition w/o complications Active Diagnosis [place] Diagnosis: ICD-10-CM Z51.81 Encounter for therapeutic drug level monitoring Active Diagnosis [facility] Medications Combined list of outpatient medications from Department of Defense and Veterans Affairs facilities.Medications provided include 1) outpatient medications from the last 15 months, and 2) patient-reported medications. Medication Details Route Status Patient Instructions Prescription Expires Prescription Number Last Dispense Date Ordering Provider Order Date Order Qty Source ALBUTEROL 90MCG/ACTUA T (CFC-F) INHL,ORAL,8 .5GM DOSE COUNTER INHALE 1 TO 2 PUFFS BY MOUTH EVERY 6 HOURS NEEDED FOR BRONCHOS PASM RESPIR ATORY (INHAL ATION) 10/23/2023 [id number] Angela PURVIS 2023 1 [facility] ALLOPURINOL 100MG TAB TAKE ONE TABLET BY MOUTH TWICE DAILY FOR GOUT ORAL SUSPEND ED 12/15/2024 [id number] 5 MARGARITA STONE 2023 180 [facility] ALLOPURINOL 100MG TAB TAKE ONE TABLET BY MOUTH TWICE DAILY FOR GOUT ORAL DISCONT INUED 05/17/2024 [id number] 4 SHASHANK STONEKA M 2023 180 [place] ALLOPURINOL 100MG TAB TAKE ONE TABLET BY MOUTH TWICE DAILY FOR GOUT ORAL DISCONT INUED 11/05/2023 [id number] 3 MARGARITA STONE 2022 180 [place] AMLODIPINE BESYLATE 5MG TAB TAKE ONE TABLET BY MOUTH ONCE DAILY FOR BLOOD PRESSURE /HEART, DO NOT TAKE WITH GRAPEFRU IT JUICE ORAL SUSPEND ED 12/15/2024 [id number] 5 MARGARITA STONE 2023 90 [place] AMLODIPINE BESYLATE 5MG TAB TAKE ONE TABLET BY MOUTH ONCE DAILY FOR BLOOD PRESSURE /HEART, DO NOT TAKE WITH GRAPEFRU IT JUICE ORAL DISCONT INUED 05/17/2024 [id number] 4 MARGARITA STONE 2023 90 [place] AMLODIPINE BESYLATE 5MG TAB TAKE ONE TABLET BY MOUTH ONCE DAILY FOR BLOOD PRESSURE /HEART, DO NOT TAKE WITH GRAPEFRU IT JUICE ORAL DISCONT INUED 11/05/2023 [id number] 3 MARGARITA STONE 2022 90 [place] AMOXICILLIN TRIHYDRATE 500MG CAP TAKE ONE CAPSULE BY MOUTH TWICE DAILY ORAL 10/28/2023 [id number] 4 Angela PURVIS 2023 14 [place] ASPIRIN 81MG TAB,EC TAKE ONE TABLET BY MOUTH DAILY ORAL ACTIVE JAMES KIRAN [place] BENZONATATE 100MG CAP TAKE ONE CAPSULE BY MOUTH EVERY 8 HOURS NEEDED FOR COUGH ORAL ACTIVE 10/31/2023 [id number] Angela PURVIS 2023 90 [place] CHOLECALCIF DAVIN 25MCG (1,000UNIT) TAB TAKE ONE TABLET BY MOUTH ONCE DAILY ORAL ACTIVE MARGARITA STONE 2022 [place] CLOPIDOGREL BISULFATE 75MG TAB TAKE ONE TABLET BY MOUTH ONCE DAILY TO PREVENT BLOOD CLOTS ORAL SUSPEND ED 05/20/2025 [id number] 5 MARGARITA STONE 2024 90 [place] CLOPIDOGREL BISULFATE 75MG TAB TAKE ONE TABLET BY MOUTH ONCE DAILY TO PREVENT BLOOD CLOTS ORAL DISCONT INUED 12/15/2024 [id number] 4 MARGARITA STONE 2023 90 [place] CLOPIDOGREL BISULFATE 75MG TAB TAKE ONE TABLET BY MOUTH ONCE DAILY TO PREVENT BLOOD CLOTS ORAL DISCONT INUED 05/17/2024 [id number] 4 MARGARITA STONE 2023 90 [place] CLOPIDOGREL BISULFATE 75MG TAB TAKE ONE TABLET BY MOUTH ONCE DAILY TO PREVENT BLOOD CLOTS ORAL DISCONT INUED 11/05/2023 [id number] 3 MARGARITA STONE 2022 90 [place] CYANOCOBALA MIN 250MCG TAB TAKE ONE TABLET BY MOUTH ONCE DAILY ORAL ACTIVE LENZ,L AUREN T 2018 [place] DEXTROMETHO RPHAN HBR 10MG/GUAIFE NESIN 100MG/5ML (AF & SF) LIQUID TAKE 10 MLS BY MOUTH EVERY 6 HOURS NEEDED FOR COUGH ORAL DISCONT INUED 10/23/2023 [id number] 4 Angela PURVIS 2023 120 [place] DEXTROMETHO RPHAN HBR 10MG/GUAIFE NESIN 100MG/5ML (AF & SF) LIQUID TAKE 10 MLS BY MOUTH EVERY 6 HOURS NEEDED FOR COUGH ORAL 10/31/2023 [id number] 4 Angela PURVIS 2023 120 [place] FENOFIBRATE 145MG TAB TAKE ONE TABLET BY MOUTH AT BEDTIME TO LOWER CHOLESTE ROL ORAL ACTIVE 05/28/2024 [id number] 4 LORETO TURNER 2023 90 [place] FENOFIBRATE 145MG TAB TAKE ONE TABLET BY MOUTH AT BEDTIME TO LOWER CHOLESTE ROL ORAL DISCONT INUED 05/17/2024 [id number] 4 MARGARITA STONE 2023 90 [place] FENOFIBRATE 145MG TAB TAKE ONE TABLET BY MOUTH AT BEDTIME TO LOWER CHOLESTE ROL ORAL DISCONT INUED 11/05/2023 [id number] 3 MARGARITA STONE 2022 90 [place] FERROUS GLUCONATE 324MG TAB TAKE ONE TABLET BY MOUTH EVERY 48 HOURS ORAL ACTIVE MARGARITA STONE 2023 [place] FISH OIL 1000MG (500MG DHA/EPA) CAP,ORAL TAKE 1 CAPSULE BY MOUTH DAILY ORAL ACTIVE JAMES KIRAN 2008 [place] FUROSEMIDE 20MG TAB TAKE ONE TABLET BY MOUTH ONCE DAILY TO REMOVE FLUID/CO NTROL BLOOD PRESSURE ORAL ACTIVE 09/15/2024 [id number] MARGARITA STONE 2023 90 [place] FUROSEMIDE 40MG TAB TAKE ONE TABLET BY MOUTH ONCE DAILY TO REMOVE FLUID/CO NTROL BLOOD PRESSURE ORAL DISCONT INUED (EDIT) 05/17/2024 [id number] 4 MARGARITA STONE 2022 90 [place] FUROSEMIDE 40MG TAB TAKE ONE TABLET BY MOUTH ONCE DAILY TO REMOVE FLUID/CO NTROL BLOOD PRESSURE ORAL DISCONT INUED 11/05/2023 [id number] 3 MARGARITA STONE 2022 90 [place] GABAPENTIN 300MG CAP TAKE ONE CAPSULE BY MOUTH AT BEDTIME ORAL ACTIVE 05/20/2025 [id number] 4 MARGARITA STONE 2023 90 [place] GABAPENTIN 300MG CAP TAKE ONE CAPSULE BY MOUTH AT BEDTIME ORAL DISCONT INUED 11/06/2024 [id number] 4 MARGARITA STONE 2023 90 [place] GABAPENTIN 300MG CAP TAKE ONE CAPSULE BY MOUTH AT BEDTIME ORAL DISCONT INUED 04/22/2024 [id number] 4 MARGARITA STONE 2022 90 [place] GLIPIZIDE 5MG TAB TAKE ONE TABLET BY MOUTH TWICE DAILY ORAL DISCONT INUED 04/28/2024 [id number] MARGARITA STONE 2022 180 [place] INSULIN,ASP ART,HUMAN 70/30 INJ,NOVOLOG INJECT 30 UNITS SUBCUTAN EOUSLY EVERY MORNING AND INJECT 20 UNITS EVERY EVENING FOR DIABETES INJECT BEFORE MEALS SUBCUT ANEOUS SUSPEND ED 03/24/2025 [id number] 4 Shayne GILL 2023 5 [place] INSULIN,ASP ART,HUMAN 70/30 INJ,NOVOLOG INJECT 24 UNITS SUBCUTAN EOUSLY EVERY MORNING AND INJECT 20 UNITS EVERY EVENING SUBCUT ANEOUS DISCONT INUED BY PROVIDE R 06/10/2024 [id number] Shayne GILL 2022 4 [place] INSULIN,ASP ART,HUMAN 70/30 INJ,NOVOLOG INJECT 16 UNITS SUBCUTAN EOUSLY SUBCUT ANEOUS ACTIVE MARGARITA STONE 2021 [place] LISINOPRIL 5MG TAB TAKE ONE TABLET BY MOUTH ONCE DAILY TO CONTROL BLOOD PRESSURE ORAL DISCONT INUED BY PROVIDE R 05/17/2024 [id number] 4 MARGARITA STONE 2023 90 [place] LISINOPRIL 5MG TAB TAKE ONE TABLET BY MOUTH ONCE DAILY TO CONTROL BLOOD PRESSURE ORAL DISCONT INUED 11/05/2023 [id number] 3 MARGARITA STONE 2022 90 [place] MAGNESIUM OXIDE 420MG TAB TAKE ONE TABLET BY MOUTH TWICE DAILY FOR MAGNESIU M SUPPLEME NTATION ORAL ACTIVE 12/15/2024 [id number] 4 NADMARGARITA RAMOS 2023 180 [place] MAGNESIUM OXIDE 420MG TAB TAKE ONE TABLET BY MOUTH TWICE DAILY FOR MAGNESIU M SUPPLEME NTATION ORAL DISCONT INUED 04/23/2024 [id number] MARGARITA STONE 2022 180 [place] METFORMIN HCL 500MG 24HR TAB,SA TAKE TWO TABLETS BY MOUTH ONCE DAILY ORAL ACTIVE 12/15/2024 [id number] 4 MARGARITA STONE 2023 60 [place] METFORMIN HCL 500MG 24HR TAB,SA TAKE TWO TABLETS BY MOUTH ONCE DAILY ORAL DISCONT INUED 05/17/2024 [id number] 4 MARGARITA STONE 2023 180 [place] METFORMIN HCL 500MG 24HR TAB,SA TAKE TWO TABLETS BY MOUTH ONCE DAILY ORAL DISCONT INUED 11/05/2023 [id number] 3 MARGARITA STONE 2022 180 [place] METOPROLOL SUCCINATE 100MG TAB,SA TAKE ONE TABLET BY MOUTH ONCE DAILY FOR BLOOD PRESSURE /HEART ORAL DISCONT INUED 11/05/2023 [id number] 3 MARGARITA STONE 2022 90 [place] METOPROLOL SUCCINATE 100MG TAB,SA TAKE ONE TABLET BY MOUTH ONCE DAILY FOR BLOOD PRESSURE /HEART ORAL 05/17/2024 [id number] MARGARITA STONE 2023 90 [place] NIACIN (SLO-NIACIN ) 750MG TAB,SA TAKE ONE TABLET BY MOUTH TWICE DAILY ORAL 05/21/2024 [id number] 3 MARGARITA STONE 2022 200 [place] OMEPRAZOLE 20MG CAP,EC TAKE ONE CAPSULE BY MOUTH TWICE DAILY ORAL ACTIVE 12/15/2024 [id number] 4 NADMARGARITA RAMOS 2023 180 [place] OMEPRAZOLE 20MG CAP,EC TAKE ONE CAPSULE BY MOUTH TWICE DAILY ORAL DISCONT INUED 05/17/2024 [id number] 3 MARGARITA STONE 2022 180 [place] OMEPRAZOLE 20MG CAP,EC TAKE ONE CAPSULE BY MOUTH TWICE DAILY ORAL DISCONT INUED 11/05/2023 [id number] 3 MARGARITA STONE 2022 180 [place] PREDNISONE 50MG TAB TAKE ONE TABLET BY MOUTH ONCE DAILY FOR BRONCHIT IS ORAL 10/23/2023 [id number] 4 Angela PURVIS 2023 5 [place] SEMAGLUTIDE 0.25MG/0.37 5ML INJ,SOLN,PE N,3ML INJECT 0.5MG SUBCUTAN EOUSLY ONCE A WEEK FOR TYPE 2 DIABETES MELLITUS SUBCUT ANEOUS DISCONT INUED 03/18/2024 [id number] Shayen GILL 2022 1 [place] SEMAGLUTIDE 1MG/0.75ML INJ,SOLN,PE N,3ML INJECT 1MG SUBCUTAN EOUSLY ONCE A WEEK FOR TYPE 2 DIABETES MELLITUS SUBCUT ANEOUS ACTIVE 03/24/2025 [id number] Shayne GILL 2023 1 [place] SEMAGLUTIDE 1MG/0.75ML INJ,SOLN,PE N,3ML INJECT 1MG SUBCUTAN EOUSLY ONCE A WEEK FOR TYPE 2 DIABETES MELLITUS SUBCUT ANEOUS DISCONT INUED BY ADONAY R 11/05/2024 [id number] 4 Shayne GILL 2023 1 [place] SEMAGLUTIDE 1MG/0.75ML INJ,SOLN,PE N,3ML INJECT 1MG SUBCUTAN EOUSLY ONCE A WEEK FOR TYPE 2 DIABETES MELLITUS SUBCUT ANEOUS DISCONT INUED 06/10/2024 [id number] 4 Shayne GILL 2022 1 [place] SIMVASTATIN 80MG TAB TAKE ONE-HALF TABLET BY MOUTH ONCE DAILY FOR CHOLESTE ROL ORAL SUSPEND ED 12/15/2024 [id number] 5 MARGARITA STONE 2023 45 [place] SIMVASTATIN 80MG TAB TAKE ONE-HALF TABLET BY MOUTH ONCE DAILY FOR CHOLESTE ROL ORAL DISCONT INUED 05/17/2024 [id number] 4 MARGARITA STONE 2022 45 [place] Allergies, Adverse Reactions, Alerts Combined list of allergies from Department of Defense and Veterans Affairs facilities. It does not include entries that were removed or entered in error. Substance Category Reaction Severity Reaction type Status Date Reported Comments Source COLCHICINE /PROBENECI D Propensity to adverse reactions to drug (finding) Anaphylaxis active 9 [facility] Immunizations Combined list of available immunizations from the Department of Defense and Veterans Affairs facilities. Immunization Series Date Given Administered By Site Reaction Lot Number CVX Code Drug Inspector Receiving Status Comments Source INFLUENZA, HIGH-DOSE, QUADRIVALENT 2022 ANANDA HANNON LEFT DELTO ID [id number] 197 complet ed [facility] INFLUENZA VACCINE, QUADRIVALENT, ADJUVANTED 2021 205 complet ed [facility]FLU[facility] VACCINE, QUADRIVALENT, ADJUVANTED 2020 205 complet ed [facility] TDAP 2020 115 complet ed [facility] ZOSTER RECOMBINANT 2 2020 187 complet ed [facility] COVID-19 (MODERNA), MRNA, LNP-S, PF, 100 MCG/0.5 ML DOSE 2 2020 207 complet ed MOD; [id number]; [facility] COVID-19 (MODERNA), MRNA, LNP-S, PF, 100 MCG/0.5 ML DOSE 1 2020 207 complet ed MOD; [id number]; 1 [place] ZOSTER RECOMBINANT 1 2019 187 complet ed [facility] INFLUENZA, INJECTABLE, QUADRIVALENT, PRESERVATIVE FREE 2019 150 complet ed [place] INFLUENZA, SEASONAL, INJECTABLE 2017 141 complet ed Site: Left Deltoid [place] INFLUENZA, SEASONAL, INJECTABLE 2016 141 complet ed Site: Left Deltoid [place] FLU,3 YRS (HISTORICAL) 2015 88 complet ed Site: Left Deltoid [place] FLU,3 YRS (HISTORICAL) 2014 88 complet ed Site: Left Deltoid [facility] FLU,3 YRS (HISTORICAL) 2014 88 complet ed Site: Left Deltoid [place] PNEUMOCOCCAL CONJUGATE PCV 13 2014 133 complet ed [place] FLU,3 YRS (HISTORICAL) 2013 88 complet ed [facility] FLU,3 YRS (HISTORICAL) 2012 88 complet ed Site: Left Deltoid [place] ZOSTER (HISTORICAL) 2012 121 complet ed [facility] [place] FLU,3 YRS (HISTORICAL) 2011 88 complet ed Site: Right Deltoid [place] FLU,3 YRS (HISTORICAL) 2010 88 complet ed Site: Right Deltoid [place] FLU,3 YRS (HISTORICAL) 2009 88 complet ed [facility] PNEUMOCOCCAL, UNSPECIFIED FORMULATION 2009 109 complet ed doesn't remember exavt year [facility] FLU,3 YRS (HISTORICAL) 2008 88 complet ed [facility] Results Combined list of recent chemistry, hematology and other laboratory results from Department of Defense and Veterans Affairs, ranging from 15 months to all on record, depending upon the facility. Order Name Results Value Reference Range Date Interpretation Specimen Comments Source PSA PROSTATE SPECIFIC AG [MASS/VOLUM E] IN SERUM OR PLASMA 1.00 ng/mL 0.00 - 4.00 11/24 Specimen Type: SERUM No comment entered. Ordering Provider: MERY FOWLER Report Released Date/Time: Sep 15, 2023 01:00 PM Reporting Lab: [facility] [place] [facility] [address] [facility] [address] Performing Lab: [facility] [place] [facility] [address] [address] [place] VITAMIN D (25-OH) 25-HYDROXYV ITAMIN D3 [MASS/VOLUM E] IN SERUM OR PLASMA 28 ng/mL 20 - 50 11/24 Specimen Type: SERUM No comment entered. Ordering Provider: MERY FOWLER Report Released Date/Time: Sep 15, 2023 12:57 PM Reporting Lab: [facility] [place] [address] [address] Performing Lab: [facility] [address] [place] HEMOGLOBI N A1C PANEL HEMOGLOBIN A1C/HEMOGLO BIN.TOTAL IN BLOOD BY HPLC 6.7 4.0 - 5.6 11/24 H Specimen Type: BLOOD Comment: Values obtained from A1C measurement s can vary. For atypical A1C assays, a reported value of 7.0 could actually be between 6.72 and 7.28 if measured by a reference method. A reported value of 9.0 could actually be between 8.73 and 9.27. Ref: http://www. ngsp.org/[place] Pdata.asp Ordering Provider: MERY FOWLER Report Released Date/Time: Sep 15, 2023 12:57 PM Reporting Lab: [facility] [address] [address] Performing Lab: [facility] [address] [place] FERRITIN FERRITIN [MASS/VOLUM E] IN SERUM OR PLASMA 38 ng/mL 20 - 300 11/24 Specimen Type: SERUM No comment entered. Ordering Provider: MERY FOWLER Report Released Date/Time: Sep 15, 2023 12:57 PM Reporting Lab: [facility] [address] [address] Performing Lab: [facility] [address] [place] MAGNESIUM MAGNESIUM [MASS/VOLUM E] IN SERUM OR PLASMA 1.6 mg/dL 1.6 - 2.6 11/24 Specimen Type: SERUM No comment entered. Ordering Provider: MERY FOWLER Report Released Date/Time: Sep 15, 2023 12:57 PM Reporting Lab: [address] [address] Performing Lab: [address] [address] [place] LIPID PANEL, NON FASTING CHOLESTEROL [MASS/VOLUM E] IN SERUM OR PLASMA 120 mg/dL 11/24 Specimen Type: SERUM No comment entered. Ordering Provider: MERY FOWLER Report Released Date/Time: Sep 15, 2023 12:57 PM Reporting Lab: [address] [address] Performing Lab: [address] [address] [place] LIPID PANEL, NON FASTING TRIGLYCERID E [MASS/VOLUM E] IN SERUM OR PLASMA 191 mg/dL 0 - 150 11/24 H Specimen Type: SERUM No comment entered. Ordering Provider: MERY FOWLER Report Released Date/Time: Sep 15, 2023 12:57 PM Reporting Lab: [address] [address] Performing Lab: [address] [address] [place] LIPID PANEL, NON FASTING CHOLESTEROL IN LDL [MASS/VOLUM E] IN SERUM OR PLASMA BY CALCULATION 46 mg/dL 0 - 129 11/24 Specimen Type: SERUM No comment entered. Ordering Provider: MERY FOWLER Report Released Date/Time: Sep 15, 2023 12:57 PM Reporting Lab: [address] [address] Performing Lab: [facility] [address] [facility] [address] [place] LIPID PANEL, NON FASTING CHOLESTEROL .TOTAL/CHOL ESTEROL IN HDL [MASS RATIO] IN SERUM OR PLASMA 3.3 11/24 Specimen Type: SERUM No comment entered. Ordering Provider: MERY FOWLER Report Released Date/Time: Sep 15, 2023 12:57 PM Reporting Lab: [facility] [address] [facility] [address] Performing Lab: [facility] [address] [place] LIPID PANEL, NON FASTING CHOLESTEROL IN HDL [MASS/VOLUM E] IN SERUM OR PLASMA 36 mg/dL 40 - 60 11/24 L Specimen Type: SERUM No comment entered. Ordering Provider: MERY FOWLER Report Released Date/Time: Sep 15, 2023 12:57 PM Reporting Lab: [facility] [address] [address] Performing Lab: [facility] [address] [address] [place] IRON & TIBC PANEL IRON BINDING CAPACITY [MASS/VOLUM E] IN SERUM OR PLASMA 430 ug/dL 204 - 475 11/24 Specimen Type: SERUM No comment entered. Ordering Provider: MERY FOWLER Report Released Date/Time: Sep 15, 2023 12:57 PM Reporting Lab: [facility] [address] [address] Performing Lab: [facility] [address] [address] [place] IRON & TIBC PANEL IRON [MASS/VOLUM E] IN SERUM OR PLASMA 78 ug/dL 40 - 160 11/24 Specimen Type: SERUM No comment entered. Ordering Provider: MERY FOWLER Report Released Date/Time: Sep 15, 2023 12:57 PM Reporting Lab: [facility] [address] Performing Lab: [facility] [place] [facility] [address] [facility] [address] [place] IRON & TIBC PANEL IRON/IRON BINDING CAPACITY.TO SHALOM [MASS RATIO] IN SERUM OR PLASMA 18.1 20.0 - 50.0 11/24 L Specimen Type: SERUM No comment entered. Ordering Provider: MERY FOWLER Report Released Date/Time: Sep 15, 2023 12:57 PM Reporting Lab: [facility] [place] [address] Performing Lab: [facility] [address] [place] MICROALBU MIN CREATININ E RATIO PANEL MICROALBUMI N/CREATININ E [MASS RATIO] IN URINE cancmg /g 0 - 29.9 11/24 Specimen Type: URINE No comment entered. Ordering Provider: MERY FOWLER Report Released Date/Time: Sep 15, 2023 12:57 PM Reporting Lab: [facility] [address] [address] Performing Lab: [facility] [address] [place] MICROALBU MIN CREATININ E RATIO PANEL MICROALBUMI N [MASS/VOLUM E] IN URINE < 0.5mg/ dL 11/24 Specimen Type: URINE No comment entered. Ordering Provider: MERY FOWLER Report Released Date/Time: Sep 15, 2023 12:57 PM Reporting Lab: [facility] [address] Performing [facility]: [facility] [address] [place] MICROALBU MIN CREATININ E RATIO PANEL CREATININE [MASS/VOLUM E] IN URINE 57.10 mg/dL 11/24 Specimen Type: URINE No comment entered. Ordering Provider: MERY FOWLER Report Released Date/Time: Sep 15, 2023 12:57 PM Reporting Lab: [address] [address] Performing Lab: [address] [address] [place] VITAMIN B12 COBALAMIN (VITAMIN B12) [MASS/VOLUM E] IN SERUM OR PLASMA 884 pg/mL 200 - 900 11/24 Specimen Type: SERUM No comment entered. Ordering Provider: MERY FOWLER Report Released Date/Time: Sep 15, 2023 12:57 PM Reporting Lab: [address] [address] Performing Lab: [address] [address] [place] LIVER FUNCTION PROTEIN [MASS/VOLUM E] IN SERUM OR PLASMA 6.8 g/dL 6.0 - 8.3 11/24 Specimen Type: SERUM No comment entered. Ordering Provider: MERY FOWLER Report Released Date/Time: Sep 15, 2023 12:57 PM Reporting Lab: [address] [address] Performing Lab: [address] [address] [place] LIVER FUNCTION ALBUMIN [MASS/VOLUM E] IN SERUM OR PLASMA 3.6 g/dL 3.5 - 5.0 11/24 Specimen Type: SERUM No comment entered. Ordering Provider: MERY FOWLER Report Released Date/Time: Sep 15, 2023 12:57 PM Reporting Lab: [address] [address] Performing Lab: [address] [address] [place] LIVER FUNCTION ALKALINE PHOSPHATASE [ENZYMATIC ACTIVITY/VO LUME] IN SERUM OR PLASMA 38 U/L 40 - 150 11/24 L Specimen Type: SERUM No comment entered. Ordering Provider: MERY FOWLER Report Released Date/Time: Sep 15, 2023 12:57 PM Reporting Lab: [facility] [address] [address] Performing Lab: [facility] [address] [place] L[place] ASPARTATE AMINOTRANSF ERASE [ENZYMATIC ACTIVITY/VO LUME] IN SERUM OR PLASMA 21 U/L 5 - 34 11/24 Specimen Type: SERUM No comment entered. Ordering Provider: MERY FOWLER Report Released Date/Time: Sep 15, 2023 12:57 PM Reporting Lab: [facility] [address] [address] Performing Lab: [facility] [address] [address] [place] LIVER FUNCTION ALANINE AMINOTRANSF ERASE [ENZYMATIC ACTIVITY/VO LUME] IN SERUM OR PLASMA 21 U/L 11/24 Specimen Type: SERUM No comment entered. Ordering Provider: MERY FOWLER Report Released Date/Time: Sep 15, 2023 12:57 PM Reporting Lab: [facility] [address] Performing [facility]: [facility] [address] [address] [place] LIVER FUNCTION BILIRUBIN.T OTAL [MASS/VOLUM E] IN SERUM OR PLASMA 0.4 mg/dL 0.2 - 1.2 11/24 Specimen Type: SERUM No comment entered. Ordering Provider: MERY FOWLER Report Released Date/Time: Sep 15, 2023 12:57 PM Reporting Lab: [facility] [address] [address] Performing Lab: [facility] [address] [address] [place] Vital Signs Combined list of inpatient and outpatient Vital Signs from Department of Defense and Veterans Affairs, ranging from 12 months to all on record, depending upon the facility. Vital Sign Value Date Comments Source WEIGHT 212.5 04/27/2024 10:31:53 [facility] BMI 31kg/m2 04/27/2024 10:31:53 [facility] SYSTOLIC BLOOD PRESSURE 129 12/15/19 24 15:11:37 [place] DIASTOLIC BLOOD PRESSURE 80 024 15:11:37 [place] PULSE OXIMETRY 96 12/15/2023 15:11:37 [place] WEIGHT 219.8 12/15/2023 15:11:37 [place] BMI 32kg/m2 12/15/2023 15:11:37 [place] TEMPERATURE 97.9 12/15/2023 15:11:37 [place] PULSE 86 12/15/2023 15:11:37 [place] SYSTOLIC BLOOD PRESSURE 138 09/30/19 24 15:32:26 [place] DIASTOLIC BLOOD PRESSURE 74 024 15:32:26 [place] PULSE OXIMETRY 96 09/30/2023 15:32:26 [place] PAIN 0 09/30/2023 15:32:26 [place] TEMPERATURE 97.3 09/30/2023 15:32:26 [place] PULSE 93 09/30/2023 15:32:26 [place] RESPIRATION 18 09/30/2023 15:32:26 [place] SYSTOLIC BLOOD PRESSURE 109 09/15/19 24 11:21:36 [place] DIASTOLIC BLOOD PRESSURE 57 024 11:21:36 [place] PULSE OXIMETRY 98 09/15/2023 11:21:36 [place] WEIGHT 216.4 09/15/2023 11:21:36 [place] BMI 31kg/m2 09/15/2023 11:21:36 [place] TEMPERATURE 98.1 09/15/2023 11:21:36 [place] PULSE 88 09/15/2023 11:21:36 [place] WEIGHT 220 08/05/2023 13:45:23 [facility] BMI 32kg/m2 08/05/2023 13:45:23 [facility] Encounters Combined list of: 1) Encounters from Department of Veterans Affairs facilities going back up to thelast 18 months. 2) Encounters from the Department of Defense facilities going back up to 280 months. Location Location Details Encounter Type Encounter Number Reason For Visit Attending Provider ADM Date DC Date Status Disposition Source [place] MTMS BY PHARM ADDL 15 MIN [id number] 1BY. 21 Diagnos is: ICD-10- CM E08.8 Diabete s due to underly ing conditi on w unsp complic ations< br/> DACIA GILL 11/27 [place] [facility] REPAIR & ADJUST SPECTACLES [id number] Diagnos is: ICD-10- CM Z46.0 Encount er for fit/adj st of spectac les and contact lenses< br/> SHRUTI OROZCO 12/03 [facility] [place] [facility] [place] [facility] SLEEP STUDY UNATT&RESP EFFT [id number] Diagnos is: ICD-10- CM G47.33 Obstruc tive sleep apnea (adult) ([facility] issac)
VANESSAHORTENSIA ISSAC 12/11 [facility] [place] [facility] [place] [facility] Outpatient Encounter [id number] 12/17 [facility] [place] [facility] [place] [facility] Outpatient Encounter [id number] 12/18 [facility] [place] [facility] SLEEP STUDY UNATT&RESP EFFT [id number] Diagnos is: ICD-10- CM G47.33 Obstruc tive sleep apnea (adult) ([facility] issac)
CURIOSO[facility]UY ROSSERIC [facility] MIN [id number] Diagnos is: ICD-10- CM E11.9 Type 2 diabete s mellitu s without complic ations< br/> DACIA GILL 12/24 [place] QNHP OL DIG ASSMT&MGMT 5-10 [id number] Diagnos is: ICD-10- CM Z51.81 Encount er for therape utic drug level monitor ing<br/ > NIKOLE,WILL NIA JOSE 12/25 [place] [facility] [place] [facility] Outpatient Encounter [id number] 01/05 [facility] [place] [place] MTMS BY PHARM EST 15 MIN [id number] Diagnos is: ICD-10- CM E08.9 Diabete s due to underly ing conditi on w/o complic ations< br/> DACIA GILL 01/07 [place] [facility] [place] [facility] EXTERNAL CONTINUOUS LOFT OPERATOR, CGM SYS [id number] Diagnos is: ICD-10- CM E08.9 Diabete s due to underly ing conditi on w/o complic ations< br/> DACIA GILL 01/08 [facility] [place] [facility] [place] En[facility] [id number] 01/08 [facility] [place] [place] QNHP OL DIG ASSMT&MGMT 5-10 [id number] Diagnos is: ICD-10- CM E11.8 Type 2 diabete s mellitu s with unspeci fied complic ations< br/> NIKOLE,WILL NIA GARCIA 01/08 [place] [facility] [place] [facility] Outpatient Encounter [id number] 01/22 [facility] [place] MTMS BY PHARM ADDL 15 MIN [id number] Diagnos is: ICD-10- CM E08.9 Diabete s due to underly ing conditi on w/o complic ations< br/> GILLDACIA ARMANI Pablo 01/28 [place] [facility] Encounter [id number] 02/02 [facility] [place] En[facility] [id number] 02/04 [facility] [place] [place] MTMS BY PHARM ADDL 15 MIN [id number] Diagnos is: ICD-10- CM E11.8 Type 2 diabete s mellitu s with unspeci fied complic ations< br/> DACIA GILL 02/18 [place] [facility] En[facility] [id number] 02/19 [facility] [place] En[facility] [id number] 03/11 [facility] [place] [place] MTMS BY PHARM ADDL 15 MIN [id number] [id number] Diagnos is: ICD-10- CM E08.8 Diabete s due to underly ing conditi on w unsp complic ations< br/> DACIA GILL 03/18 [place] [facility] En[facility] [id number] 03/18 [facility] [place] QNHP OL DIG ASSMT&MGMT 5-10 [id number] [id number] Diagnos is: ICD-10- CM E11.8 Type 2 diabete s mellitu s with unspeci fied complic ations< br/> AMBREEN,ERUM IE 03/18 [facility] [place] [facility] Outpatient Encounter [id number] 03/28 [facility] [place] [place] [facility] Outpatient Encounter [id number] 04/15 [facility] [place]OP EST MAY X REQ PHY/QHP [id number] [id number] Diagnos is: ICD-10- CM Z23 Encount er for immuniz ation<b r/> BOBBI HANNON R 04/22 [facility] LD OFFICE/[place] [id number] [id number] Diagnos is: ICD-10- CM G47.33 Obstruc tive sleep apnea (adult) (pediat issac)
SERENITY DUFF 04/22 [facility] [place] [facility] Outpatient Encounter [id number] 04/22 [facility] En[facility] [id number] 04/22 [facility] [place] [place] [facility] Outpatient Encounter [id number] WESLY CALLEJAS 04/23 [facility] [place] [facility] Out[facility] Encounter [id number] 04/28 [facility] [place]/P EST HI 40-54 MIN [id number] [id number] Diagnos is: ICD-10- CM 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
HOOD MIKE 04/28 [place] O/P EST LOW 20-29 MIN [id number] [id number] Diagnos is: ICD-10- CM L60.0 Ingrowi ng nail
ÁNGEL GARCÍA ES F 04/29 [place] [facility] COLLJ & INTERPJ DATA EA 30 D [id number] [id number] Diagnos is: ICD-10- CM G47.33 Obstruc tive sleep apnea (adult) (pediat issac)
ST SARITA CORTESI E P 05/05 [facility] [place] [facility] MTMS BY PHARM ADDL 15 MIN [id number] Diagnos is: ICD-10- CM E11.8 Type 2 diabete s mellitu s with unspeci fied complic ations< br/> DACIA GILL A 05/08 [place] [facility] En[facility] [id number] 05/08 [facility] [place] En[facility] [id number] 05/11 [facility] [place] Encounter [id number] 05/20 [facility] [place] Encounter [id number] 05/20 [facility] [place] En[facility] [id number] 05/28 [facility] [place] TUBING WITH HEATING ELEMENT [id number] Diagnos is: ICD-10- CM G47.33 Obstruc tive sleep apnea (adult) (pediat issac)
ALISA FIELDS A 06/03 [facility] [place] [facility] [place] MTMS BY PHARM ADDL 15 MIN [id number] Diagnos is: ICD-10- CM E11.9 Type 2 diabete s mellitu s without complic ations< br/> DACIA GILL ARMANI A 06/10 [place] [facility] Out[facility] En[facility] [id number] 06/10 [facility] [place] Encounter [id number] WESLY CALLEJAS 06/12 [facility] [place] [facility] [place] DIABETIC CUSTOM MOLDED SHOE [id number] [id number] Diagnos is: ICD-10- CM 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
CHUCK JOHNSTON L 06/22 [place] PRO PHONE CALL 5-10 MIN [id number] [id number] Diagnos is: ICD-10- CM G47.33 Obstruc tive sleep apnea (adult) (pediat issac)
ALISA FIELDS A 06/26 [place] [facility] [place] [facility] POS AIRWAY PRESSURE CPAP [id number] Diagnos is: ICD-10- CM G47.33 Obstruc tive sleep apnea (adult) (pediat issac)
ALISA FIELDS A 07/13 [facility] [place] [facility] En[facility] [id number] 07/14 [facility] [place] [facility] [place] MTMS BY PHARM ADDL 15 MIN [id number] Diagnos is: ICD-10- CM E11.9 Type 2 diabete s mellitu s without complic ations< br/> DACIA GILL 08/05 [place] [facility] Encounter [id number] 08/05 [facility] [place] HEARING AID EXAM BOTH EARS [id number] Diagnos is: ICD-10- CM H90.3 Sensori neural hearing loss, bilater al
Solange LI CAIO E 08/07 [facility] [place] En[facility] [id number] 08/26 [facility] [place] Encounter [id number] 08/30 [facility] [place] HEARING SERVICE [id number] Diagnos is: ICD-10- CM Z46.1 Encount er for fitting and adjustm ent of hearing aid<br/ > Solange LI E 09/06 [facility] [place] En[facility] [id number] 09/09 [facility] [place] Encounter [id number] 09/14 [facility] [place] O/P EST MOD 30 MIN [id number] Diagnos is: ICD-10- CM E11.9 Type 2 diabete s mellitu s without complic ations< br/> WESLY CALLEJAS 09/14 [facility] MTMS BY PHARM ADDL 15 MIN [id number] Diagnos is: ICD-10- CM E11.8 Type 2 diabete s mellitu s with unspeci fied complic ations< br/> DACIA GILL 09/15 [place] [facility] [place] [facility] Outpatient Encounter [id number] 09/16 [facility] [place] [facility] [place] GAIT TRAINING THERAPY [id number] [id number] Diagnos is: ICD-10- CM R26.9 Unspeci fied abnorma lities of gait and mobilit y
LEE AREVALO 09/17 [facility] [place] [facility] [place] [facility] Outpatient Encounter [id number] GILA MUNOZ,WESLY Santillan 09/17 [facility] [place] [facility] [place] [facility] Outpatient Encounter [id number] 09/22 [facility] [place] [facility] [place] OFF/OP EST OCTOBER X REQ PHY/QHP [id number] [id number] Diagnos is: ICD-10- CM R06.00 Dyspnea , unspeci fied
ADILENE,ER IC K 09/22 [place] O/P EST LOW 20 MIN [id number] [id number] Diagnos is: ICD-10- CM J20.9 Acute bronchi tis, unspeci fied
BRADFORD PURVIS 09/22 [facility] [place] O/P EST LOW 20 MIN [id number] [id number] Diagnos is: ICD-10- CM L60.0 Ingrowi ng nail
ÁNGEL GARCÍA 09/29 [place] [facility] En[facility] [id number] 09/29 [facility] [place] OFF/OP EST OCTOBER X REQ PHY/QHP [id number] [id number] Diagnos is: ICD-10- CM R05.9 Cough, unspeci fied
ADILENE,ER IC K 09/29 [place] [facility] [place] [facility] COMPRE [place]PH [place] EST [place] / [id number] Diagnos is: ICD-10- CM E11.9 Type 2 diabete s mellitu s without complic ations< br/> DALEBETH 10/12 [facility] [place] FIT SPECTACLES MONOFOCAL [id number] Diagnos is: ICD-10- CM Z46.0 Encount er for fit/adj st of spectac les and contact lenses< br/> BETH HUNTER 10/12 [facility] [place] Out[facility] Encounter [id number] Diagnos is: ICD-10- CM Z02.89 Encount er for other adminis trative examina tions<b r/> SEAN SHEEHAN 10/15 [facility] [place] Outpatient Encounter [id number] 10/19 [place] [facility] Out[facility] Encounter [id number] 11/03 [facility] [place] Encounter [id number] 11/03 [facility] [place] Encounter [id number] 11/17 [facility] [place] Encounter [id number] 12/14 [facility] [place] O/P EST MOD 30 MIN [id number] [id number] Diagnos is: ICD-10- CM E11.9 Type 2 diabete s mellitu s without complic ations< br/> GILA MUNOZOG CAROLE Santillan 12/14 [place] MTMS BY PHARM ADDL 15 MIN [id number] [id number] Diagnos is: ICD-10- CM E11.8 Type 2 diabete s mellitu s with unspeci fied complic ations< br/> DACIA GILL 12/29 [place] OFF[place] O/P EST LOW 20 MIN [id number] [id number] Diagnos is: ICD-10- CM L60.0 Ingrowi ng nail
ÁNGEL GARCÍA F 03/02 [place] MTMS BY PHARM ADDL 15 MIN [id number] [id number] Diagnos is: ICD-10- CM E11.9 Type 2 diabete s mellitu s without complic ations< br/> DACIA GILL 04/27 [place] [facility] Out[facility] Encounter [id number] 04/28 [facility] [place] Encounter [id number] 05/18 [facility] [place] En[facility] [id number] 05/19 [facility] [place] Social History Combined list of available smoking, tobacco, and other social history from Department of Defense and Veterans Affairs facilities. Social History Type Response Date Comment Sourc e Tobacco smoking status NHIS VA-TOBACCO NEVER USED 04/28/2023 [facility] D History of tobacco use VA-TOBACCO NEVER USED 04/15/2022 [facility] [place] [facility] History of tobacco use VA-TOBACCO NEVER USED 04/09/2021 [facility] D History of tobacco use VA-TOBACCO NEVER USED 03/13/2020 [facility] D History of tobacco use VA-TOBACCO NEVER USED 02/02/2018 [facility] D History of tobacco use LIFETIME NON-TOBACCO USER 03/10/2017 [place] History of tobacco use LIFETIME NON-TOBACCO USER 02/11/2016 [place] History of tobacco use LIFETIME NON-TOBACCO USER 05/09/2009 [place] Plan of Care List of future care activities from [facility] facilities. Additional future care activities may be listed in the Assessment and Plan section. Date/Time Care Activity Care Activity Detail Facili ty 07/12/2024 AMBULATORY - MEDICINE AMBULATORY - MEDICI [facility] 07/20/2024 AMBULATORY - MEDICINE AMBULATORY - MEDICI [facility] 08/03/2024 AMBULAT[facility] - [facility]/01[facility] [place] [facility] 07/06/2024 Laboratory - Power Press Operator ry Order BASIC METABOLIC PANEL (fasting) BLOOD (SST-SERUM) [facility] 07/06/2024 Laboratory - Power Press Operator ry Order LIPID PANEL FASTING BLOOD (SST-SERUM) [facility] 07/06/2024 Laboratory - Power Press Operator ry Order LIVER FUNCTION BLOOD (SST-SERUM) [facility] 07/06/2024 Laboratory - Power Press Operator ry Order CBC AND DIFF (AUTO) BLOOD (LAV-BLOOD) [facility] 07/06/2024 Laboratory - Power Press Operator ry Order TSH BLOOD (SST-SERUM) [facility] 07/06/2024 Laboratory - Power Press Operator ry Order MICROALBUMIN CREATININE RATIO PANEL URINE (RANDOM) [facility] 07/06/2024 Laboratory - Power Press Operator ry Order MAGNESIUM BLOOD (SST-SERUM) [facility] [place] 07/06/2024 Laboratory - Power Press Operator ry Order VITAMIN B12 BLOOD (SST-SERUM) [facility] 07/06/2024 Laboratory - Power Press Operator ry Order FERRITIN BLOOD (SST-SERUM) [facility] 07/06/2024 Laboratory - Power Press Operator ry Order HEMOGLOBIN A1C PANEL BLOOD (LAV-BLOOD) [facility] 07/06/2024 Laboratory - Power Press Operator ry Order IRON and TIBC PANEL BLOOD (SST-SERUM) [facility]
--- OUTSIDE RECORDS SUMMARY | 2024-05-24 13:10 | XMS_ITS | Encounter Summary ---
Author Name [facility] [place] [facility] [place] Address [address] [place] [id number] Care Team Providers Care Tennis Director Name Role Phone MARGARITA FLOREZ Primary Care [...] Relationship to Policy Bejarano ALVA [place] [facility] [facility] Dec 13, 2013 [id number] DAGMAR,ZIA ERT PATIENT [place] MEDICARE SU[facility] November 06, 2007 [id number] DAGMAR,ZIA ERT PATIENT BCBS [place] MEDICARE SUPP[facility] 2 November 06, 2007 [id number] DAGMAR,ZIA ERT PATIENT [place] MED[place] [facility] [facility] 2 November 06, 2007 [id number] DAGMAR,ZIA ERT PATIENT BCBS OF [facility] MEDICARE SUPPLEMEN [facility] Dec 13, 2013 [id number] DAGMAR,ZIA ERT PATIENT [place] [facility] MMHG/ WHITM AN/MX Dec 13, 2008 [id number] DAGMAR,ZIA ERT PATIENT MEDICARE (WNR) MEDICARE () PART B May 15, 2012 PART B [id number] [id number] [phone] DAGMAR,ZIA ERT PATIENT MEDICARE (WNR) MEDICARE () PART A May 15, 2002 PART A [id number] DAGMAR,ZIA ERT PATIENT MEDICARE (WNR) MEDICARE () PART B May 15, 2002 PART B [id number] DAGMAR,IZA ERT PATIENT MEDICARE (WNR) MEDICARE () PART A May 15, 2002 PART A [id number] [id number] [phone] DAGMAR,ZIA ERT PATIENT MEDICARE (WNR) MEDICARE () PART B May 15, 2002 PART B [id number] DAGMAR,ZIA ERT PATIENT MEDICARE (WNR) MEDICARE () PART A May 15, 2002 PART A [id number] DAGMAR,ZIA ERT PATIENT MEDICARE (WNR) MEDICARE () PART B May 15, 2002 PART B [id number] DAGMAR,ZIA ERT PATIENT MEDICARE (WNR) MEDICARE () PART A May 15, 2002 PART A [id number] DAGMAR,ZIA ERT PATIENT Selected Encounter This section includes the information on record at [place] for the Encounter. Date/Time Encounter Type Encounter Description Reason Provider Source Jun 26, 2023 10:01 AM HC PRO PHONE CALL 5-10 MIN TELEPHONE/MEDICIN [place] ICD-10-CM G47.33 Obstructive sleep apnea (adult) (pediatric) RANJITH FIELDS Encounter Template Text not used by [place] Assessments - Encounter Diagnoses This section includes the primary and secondary diagnoses documented for the Encounter. Date/Time Primary/Secondary Diagnosis Diagnosis Name Provider Source Jun 26, 2023 10:01 AM PRIMARY Obstructive sleep apnea (adult) (pediatric) RANJITH FIELDS [place] Plan of Treatment: Future Appointments (+ 6 months) and Future Tests (+/- 45 days) The Plan of Treatment section includes future care activities for the patient from all [place] [facility]. This section includes future appointments and future orders which are active, pending or scheduled. Future Appointments This section includes appointments that were scheduled to occur 6 months from the date of the Encounter, up to a maximum of 20 appointments. The data comes from all [place] treatment facilities. Appointment Date/Time Appointment Type Appointme nt Facility Name Aug 05, 2023 01:00 PM AMBULATORY [place]ICINE [place] [facility] [place] [facility] Aug 07, 2023 02:00 PM AMBULATORY - REHAB MEDICIN E [place] [facility] [place] [facility] Sep 07, 2023 03:00 PM AMBULATORY - REHAB MEDICIN [place] [facility] [place] [facility] Sep 15, 2023 11:00 AM [facility] Sep 16, 2023 01:00 PM AMBULATORY - MEDICINE [place] [facility] [place] [facility] Sep 18, 2023 10:30 AM AMBULATORY - REHAB MEDICIN E [place] Sep 23, 2023 01:00 PM [facility] Sep 23, 2023 01:15 PM [facility] [place] [facility] [facility] [place] Sep 30, 2023 03:00 PM [facility]IC[facility] [place] Sep 30, 2023 03:15 PM [facility] [place] Oct 13, 2023 01:00 PM AMBULATORY - MEDICINE [place] [facility] [place] [facility] October 16, 2023 01:00 PM AMBULATORY - MEDICINE [place] [facility] [place] [facility] Dec 15, 2023 02:30 PM [facility] [place] [place] Social History: Smoking Status (Most current) and Tobacco Use (All prior to encounter date) This section includes the most current, and the historical, smoking and tobacco- related health factors from the [place] facility where the Encounter took place. Current Smoking Status This section includes the most current smoking, or tobacco-related health factor, from the [place] facility where the Encounter took place. Date/Time Current Smoking Status [place] fall Apr 28, 2023 03:00 PM VA-TOBACCO NEVER USED [facility] Tobacco Use History This section includes a history of the smoking, or tobacco-related health factors, that were collected on or before the date of the Encounter. The data comes from the [place] facility where the Encounter took place. Date/Time Smoking Status/Tobacco Use Comment F acility Apr 09, 2021 10:00 AM [place]-TOBACCO NEVER USED [facility] Mar 13, 2020 12:30 PM VA-TOBACCO NEVER USED [facility] Feb 02, 2018 02:02 PM VA-TOBACCO NEVER USED [facility] Mar 10, 2017 01:57 PM LIFETIME NON-TOBACCO USER [facility] Feb 11, 2016 02:44 PM LIFETIME NON-TOBACCO USER [facility] May 09, 2009 09:43 AM LIFETIME NON-TOBACCO USER [facility] Encounter Notes: All associated encounter notes This section contains the clinical notes associated to the Encounter. Date/Time Encounter Note(s) Provider Source Jun 26, 2023 10:01 AM RESPIRATORY THERAP Y NOTE: LOCAL TITLE: RESPIRATORY THERAPY NOTE(BLANK) STANDARD TITLE: RESPIRATORY THERAPY NOTE DATE OF NOTE: JUN 26, 2023@10:01 ENTRY DATE: JUN 26, 2023@10:01:48 AUTHOR: RANJITH FIELDS EXP COSIGNER: URGENCY: STATUS: COMPLETED Telephone Coding and Documentation: Diagnosis: Sleep Apnea Time spent with Patient via telephone: 5 minutes. contacted to confirm which mask he prefers. He has been using the F30i FFM with the medium cushion but sometimes has trouble putting it back on after he gets up to use bathroom. He was advised to put the mask on in front of a mirror so he can see what he's doing. He requested to try another style mask so he was ordered the F20 med FFM but he hasn't tried it yet. had some teeth pulled and hasn't been using the cpap in the last week. When he is healed he will resume PAP use and and let us know if it works better or if he needs a large FFM or if he wants to go back to using the F30i FFM. /es/ RANJITH FIELDS DIGITAL ANALYTICS MANAGER RESPIRATORY THERAPIST Signed: 06/26/2023 10:06 RANJITH FIELDS
--- OUTSIDE RECORDS SUMMARY | 2024-05-24 13:10 | XMS_ITS | Encounter Summary ---
Author Name [facility] [place] [facility] [place] Address [address] [place] [address] Care Team Providers Care Circuit Board Assembler Name Role Phone MARGARITA FLOREZ Primary Care [...] Relationship to Policy Bejarano ALVA [place] MEDICARE [facility] Dec 13, 2013 [id number] [phone] DAGMAR,ZIA ERT PATIENT BCBS [place] MEDICARE SUPPLEMEN [facility] November 06, 2007 [id number] DAGMAR,ZIA ERT PATIENT [place]BS [place] MED[place]ARE SUPP[facility] 2 November 06, 2007 [id number] DAGMAR,ZIA ERT PATIENT [place] MED[place] SU[place] [facility] 2 November 06, 2007 [id number] DAGMAR,ZIA ERT PATIENT BCBS OF [facility] Dec 13, 2013 [id number] DAGMAR,ZIA ERT PATIENT [place] SU[place] [facility] MMHG/ WHITM AN/MX Dec 13, 2008 [id number] DAGMAR,ZIA ERT PATIENT MEDICARE (WNR) MEDICARE () PART B May 15, 2012 PART B [id number] DAGMAR,ZIA ERT PATIENT MEDICARE (WNR) MEDICARE () PART A May 15, 2002 PART A [id number] DAGMAR,ZIA ERT PATIENT MEDICARE (WNR) MEDICARE () PART A May 15, 2002 PART A [id number] DAGMAR,ZIA ERT PATIENT MEDICARE (WNR) MEDICARE () PART B May 15, 2002 PART B [id number] DAGMAR,ZIA ERT PATIENT MEDICARE (WNR) MEDICARE () PART A May 15, 2002 PART A [id number] DAGMAR,ZIA ERT PATIENT MEDICARE (WNR) MEDICARE () PART B May 15, 2002 PART B [id number] DAGMAR,ZIA ERT PATIENT MEDICARE (WNR) MEDICARE () PART A May 15, 2002 PART A [id number] DAGMAR,ZIA ERT PATIENT MEDICARE (WNR) MEDICARE () PART B May 15, 2002 PART B [id number] DAGMAR,ZIA ERT PATIENT Selected Encounter This section includes the information on record at [place] for the Encounter. Date/Time Encounter Type Encounter Description Reason Provider Source Jun 22, 2023 09:00 AM DIABETIC CUSTOM MOLDED SHOE PODIATRY ICD-10-CM E11.51 Type 2 diabetes w diabetic peripheral angiopath w/o gangrene PERRI JOHNSTON Encounter Template Text not used by [place] Assessments - Encounter Diagnoses This section includes the primary and secondary diagnoses documented for the Encounter. Date/Time Primary/Secondary Diagnosis Diagnosis Name Provider Source Jul 01, 2023 10:05 AM PRIMARY Type 2 diabetes w diabetic peripheral angiopath w/o gangrene PERRI JOHNSTON [place] Plan of Treatment: Future Appointments (+ 6 months) and Future Tests (+/- 45 days) The Plan of Treatment section includes future care activities for the patient from all [place] [facility]. This section includes future appointments and future orders which are active, pending or scheduled. Future Appointments This section includes appointments that were scheduled to occur 6 months from the date of the Encounter, up to a maximum of 20 appointments. The data comes from all [place] treatment facilities. Appointment Date/Time Appointment Type Appointme nt Facility Name Aug 05, 2023 01:00 PM [place]ORY [place] [facility] [place] [facility] Aug 07, 2023 02:00 PM AMBULATORY - [place]IN [place] [facility] [place] [facility] Sep 07, 2023 03:00 PM AMBULATORY - [place]ICIN [place] [facility] [place] [facility] Sep 15, 2023 11:00 AM [facility]ORY - MEDICINE [facility] Sep 16, 2023 01:00 PM AMBULATORY [place]ICINE [place] [facility] [place] [facility] Sep 18, 2023 10:30 AM AMBULATORY - REHAB MEDICIN E [place] Sep 23, 2023 01:00 PM [facility]ORY - MEDIC[facility] Sep 23, 2023 01:15 PM [facility] - [facility]ICINE [facility] Sep 30, 2023 03:00 PM [facility] 30, 2023 03:15 PM [facility] - MEDICINE [facility] Oct 13, 2023 01:00 PM AMBULATORY - MEDICINE [place] [facility] [place] [facility] October 16, 2023 01:00 PM AMBULATORY - MEDICINE [place] [facility] [place] [facility] Dec 15, 2023 02:30 PM AM[facility]ULATORY - MEDICINE [facility] Lab Results: +/- 30 days of the encounter This section includes the Chemistry and Hematology Lab Results on record with [place] for the patient. Radiology Reports and Pathology Reports are provided separately, in subsequent sections. Lab Results This section contains the Chemistry/Hematology Results that were resulted 30 days before or 30 daysafter the date of the Encounter. Date/Time Source Result Type Result - Unit Interpretation Reference Range Comment May 27, 2023 01:06 PM [place] MAGNESIUM Specimen Type: SERUM No comment entered. Ordering Provider: SHASHANK DIAMONDKA M Report Released Date/Time: May 11, 2023 01:25 PM Reporting Lab: [address] [address] Performing Lab: [address] [address] MAGNESIUM 1.3 mg/dL L 1.6-2.6 May 27, 2023 01:06 PM [place] BASIC METABOLIC PANEL (non-fasting) Spe cimen Type: SERUM No comment entered. Ordering Provider: MARGARITA DIAMOND Report Released Date/Time: May 11, 2023 01:25 PM Reporting Lab: [address] [address] Performing Lab: [address] [address] UREA NITROGEN 32 mg/dL H 7-25 GLUCOSE [...] and tobacco- related health factors from the [place] facility where the Encounter took place. Current Smoking Status This section includes the most current smoking, or tobacco-related health factor, from the [place] facility where the Encounter took place. Date/Time Current Smoking Status Comment Jesus fall Apr 28, 2023 03:00 PM [place]-TOBACCO NEVER USED [place] Tobacco Use History This section includes a history of the smoking, or tobacco-related health factors, that were collected on or before the date of the Encounter. The data comes from the [place] facility where the Encounter took place. Date/Time Smoking Status/Tobacco Use Comment Laney kirkpatrick Apr 09, 2021 10:00 AM VA-TOBACCO NEVER USED [place] Mar 13, 2020 12:30 PM [place]-TOBACCO NEVER USED [place] Feb 02, 2018 02:02 PM VA-TOBACCO NEVER USED [place] Mar 10, 2017 01:57 PM LIFETIME NON-TOBACCO USER [place] Feb 11, 2016 02:44 PM LIFETIME NON-TOBACCO USER [place] May 09, 2009 09:43 AM LIFETIME NON-TOBACCO USER [place] Encounter Notes: All associated encounter notes This section contains the clinical notes associated to the Encounter. Date/Time Encounter Note(s) Provider Source Jun 22, 2023 03:09 PM PODIATRY NOTE: LOCAL TITLE: PODIATRY NOTE STANDARD TITLE: PODIATRY NOTE DATE OF NOTE: JUN 22, 2023@15:09 ENTRY DATE: JUN 22, 2023@15:09:40 AUTHOR: PERRI JOHNSTON EXP COSIGNER: URGENCY: STATUS: COMPLETED S: Pt presents for pickup of new therapeutic shoes. O: No new foot health issues at this time. A:Type 2 Diabetes Mellitus P: Dispensed [place] V854M size 10.5 medium. They were checked for fit by palpating the length, width and height in the toe box area. They were very comfortable and was instructed to wear them around the house to make sure they fit properly. Pt was informed that if he elected to wear them out on the street that they will not be able to returned within 30 days of dispensing of shoes. Pt was Instructed to make a follow up appt. in the event the shoes do not fit properly-and to bring shoes to that visit. /radhames/ PERRI JOHNSTON [facility] Signed: 06/22/2023 15:10 PERRI JOHNSTON [place]
--- OUTSIDE RECORDS SUMMARY | 2024-05-24 13:10 | XMS_ITS | Encounter Summary ---
Author Name [place] Address [address] [place] [id number] Care Team Providers Care Division Chief Name Role Phone MARGARITA FLOREZ Primary Care [...] Relationship to Policy Bejarano [place] [facility] Dec 13, 2013 [id number] DAGMAR,ZIA ERT PATIENT [place] MEDICARE SUPPLEMEN [facility] November 06, 2007 [id number] DAGMAR,ZIA ERT PATIENT [place]BS [place] MED[place] SUPPLEMEN [facility] 2 November 06, 2007 [id number] [phone] DAGMAR,ZIA ERT PAT[place] [facility] 2 November 06, 2007 [id number] DAGMAR,ZIA ERT PATIENT BCBS OF [facility] MEDICARE SUPPLEMEN [facility] Dec 13, 2013 [id number] [phone] DAGMAR,ZIA ERT PATIENT BCBS OF [facility] MEDICARE SUPPLEMEN [facility] MMHG/ WHITM AN/MX Dec 13, 2008 [id number] [phone] DAGMAR,ZIA ERT PATIENT MEDICARE (WNR) MEDICARE () PART B May 15, 2012 PART B [id number] DAGMAR,ZIA ERT PATIENT MEDICARE (WNR) MEDICARE () PART A May 15, 2002 PART A [id number] DAGMAR,ZIA ERT PATIENT MEDICARE (WNR) MEDICARE () PART A May 15, 2002 PART A [id number] [phone] DAGMAR,ZIA ERT PATIENT MEDICARE (WNR) MEDICARE () PART B May 15, 2002 PART B [id number] DAGMAR,ZIA ERT PATIENT MEDICARE (WNR) MEDICARE () PART A May 15, 2002 PART A [id number] DAGMAR,ZIA ERT PATIENT MEDICARE (WNR) MEDICARE () PART B May 15, 2002 PART B [id number] DAGMAR,ZIA ERT PATIENT MEDICARE (WNR) MEDICARE () PART A May 15, 2002 PART A [id number] [phone] DAGMAR,ZIA ERT PATIENT MEDICARE (WNR) MEDICARE () PART B May 15, 2002 PART B [id number] [phone] DAGMAR,ZIA ERT PATIENT Selected Encounter This section includes the information on record at [place] for the Encounter. Date/Time Encounter Type Encounter Description Reason Provider Source Aug 05, 2023 01:00 PM MTMS BY PHARM ADDL 15 MIN CLINICAL PHARMACY ICD-10-CM E11.9 Type 2 diabetes mellitus without complications TAMMY GILL Grecia Encounter Template Text not used by [place] Assessments - Encounter Diagnoses This section includes the primary and secondary diagnoses documented for the Encounter. Date/Time Primary/Secondary Diagnosis Diagnosis Name Provider Source Aug 05, 2023 03:51 PM PRIMARY Type 2 diabetes mellitus without complications NIK GILL GASTON Plan of Treatment: Future Appointments (+ 6 months) and Future Tests (+/- 45 days) The Plan of Treatment section includes future care activities for the patient [facility] [place] [facility] This section includes future appointments and future orders which are active, pending or scheduled. Future Appointments This section includes appointments that were scheduled to occur 6 months from the date of the Encounter, up to a maximum of 20 appointments. The data comes from all [place] treatment facilities. Appointment Date/Time Appointment Type Appointme nt Facility Name Aug 07, 2023 02:00 PM AMBULATORY [place] [facility] [place] [facility] Sep 07, 2023 03:00 PM AM[place] [facility] [place] [facility] Sep 15, 2023 11:00 AM [facility] Sep 16, 2023 01:00 PM [facility] [place] [facility] Sep 18, 2023 10:30 AM AMBULATORY - RE[facility] MED[facility] Sep 23, 2023 01:00 PM [facility] Sep 23, 2023 01:15 PM [facility] Sep 30, 2023 03:00 PM [facility] Sep 30, 2023 03:15 PM [facility] Oct 13, 2023 01:00 PM AM[place] [facility] [facility] October 16, 2023 01:00 PM [facility] [place] Dec 15, 2023 02:30 PM [facility] Dec 30, 2023 03:00 PM [facility] [place] Social History: Smoking Status (Most current) and [...] Jesus fall Apr 28, 2023 03:00 PM [place]-TOBACCO NEVER USED [place] Tobacco Use History This section includes a history of the smoking, or tobacco-related health factors, that were collected on or before the date of the Encounter. The data comes from the [place] facility where the Encounter took place. Date/Time Smoking Status/Tobacco Use Comment F acmelissa Apr 09, 2021 10:00 AM [place]-TOBACCO NEVER USED [place] Mar 13, 2020 12:30 PM VA-TOBACCO NEVER USED [place] Feb 02, 2018 02:02 PM VA-TOBACCO NEVER USED [place] Mar 10, 2017 01:57 PM LIFETIME NON-TOBACCO USER [place] Feb 11, 2016 02:44 PM LIFETIME NON-TOBACCO USER [place] May 09, 2009 09:43 AM LIFETIME NON-TOBACCO USER [place] Encounter Notes: All associated encounter notes This section contains the clinical notes associated to the Encounter. Date/Time Encounter Note(s) Provider Source Aug 05, 2023 01:33 PM PHARMACY OUTPATIEN T NOTE: LOCAL TITLE: PHARMACY CLINIC NOTE STANDARD TITLE: PHARMACY OUTPATIENT NOTE DATE OF NOTE: AUG 05, 2023@13:33 ENTRY DATE: AUG 05, 2023@13:34:20 AUTHOR: TARUN GILL COSIGNER: URGENCY: STATUS: COMPLETED Patient Name: ORLY LEAVITT was seen via [facility] for follow-up for diabetes management treatment. : May Age: 87 Sex: MALE Race: WHITE Subjective:Pt presents for a f/up. He is tolerating the higher dose of ozempic well. Per prev: Pt presents to the visit w/ his dtr. [...] Pt has had 6 stents placed. Pt's public information specialist Dr. Flannery in [place]. Dr. Ríos is the plant quality manager on the outside. Pt lives w/ his Per consult from PCP pt is interested in obtaining sensor from the [place]. Target Goals: A1C: 7%; FB-130 mg/dL; 2HRS PP <180mg/dL. Allergies: COLCHICINE/PROBENECID PERTINENT INFORMATION: Active problems - Computerized Problem List is the source for the followin. Obstructive Sleep Apnea of Adult ([facility] [id number]) 2. Prostate Cancer ([facility] [id number]) 3. Chronic kidney disease stage 3 4. Low Back Pain * 5. Vitamin B 12 Deficiency 6. 2009: Colonoscopy: Polypectomy 7. 11-08-09: PFT: Normal 8. Abdominal aortic aneurysm (SNOMED CT 125784370) 9. Benign essential hypertension (SNOMED CT 0255726) 10. Venous insufficiency of leg (SNOMED CT 093332007) 11. Other dyspnea and respiratory abnormality 12. Coronary arteriosclerosis (SNOMED CT 13040279) 13. CAD: 2005:PTCA 5 TaxusStents: LADx2 RCAx2 Prox RCA x1 14. Gout 15. Hyperglycemia due to type 2 diabetes mellitus (SNOMED CT [id number]) 16. Gastroesophageal Reflux Disorder 17. Hyperlipidemia (SNOMED CT 81983687) 18. 1957: 2 rt inguinal hernia repair/[place] 19. 1969: Lipoma Removal 20. Tonsillectomy and Adenoidectomy (under age 12) 21. FAM HX-ISCHEM HEART DIS Objective: Diabetes Medication Regimen: -- metformin 500 mg bid - decreased d/t CKD -eGFR BHS 07/2022 31ml/min *labs will be repeated today 08/05/23* -- semaglutide 1 mg weekly (Wednesdays) - incresaed dose on May, -- Insulin Novolog mixed pen 70/30 6:30-7AM = 24 units 6 PM = 20 units - TDD: 44 units Previous DM Medications: - metformin - pt is not sure why he stopped ? eGFR 40 ml/min - restarted on 03/2023 -- Trulicity 1.5 mg weekly (Wednesdays) - switched over to semagluitde at [place] - glipizide - stopped 04/2023 Adherence: Oral [...] CRCL ADJ: 33.2 mL/min (04/20/23) lft's: wnl 04/2023 Vitals: Weight (BMI): 222.4 lb [100.88 kg] [...] LOW 100 % DAYS W/ CGM DATA Date: 08/05/23 14 day av mg/dl 7% VERY HIGH 44% HIGH 49% IN RANGE 0% LOW 0% VERY LOW [...] this time. Reviewed nutrition in details. ======== Per prev: Date: 06/10/23 Pt ran out of insulin mixed novolog mix 70/30. Pt is requesting to obtain it from the [place]. Per above note, pt does not wish to transition to basal/bolus regimen due to too high complexity and too many injections. Informed the pt that [place] currently only has vials of novolog mix 70/30 - as the pens are on yard pipe grader's backorder. Reviewed w/ pt and dtr how to use vial and syringe. Pt's dtr works in medical field is very well familiar how to perform injections using vials and syringes. Pt and dtr were able to demonstrate back to the medical underwriter how to use it. Will order it + syringes pt to pick pulling machine operator at the pharmacy window tomorrow. Reviewed the [...] Will assess futher. Reviewed the upload w/ [place] and dtr. f/up end of June. adn dtr received written instructions. Date: 08/06/23 Pt's avg has gone down to 187 mg/dl; and time in target went up to 49%. Still not at target but improving. Recommend to incresae the dose of morning insulin to assist w/ post breakfast BG rise. Pt and dtr in agreement. Pt may be appropriate candidate for increase dose of ozempic to 2 mg daily. Pt to repeat labs today - he is stage 3 CKD - at some point decision should be made whether it's safe for pt to remain on metformin ? He is being followed by nephrology in [facility] - note from 08/08 reviewed by this medical underwriter. His dose of lasix has been reduced from 40 mg daily to 20 mg daily. Pt is in agreement w/ plan. Reviewed BG data. Pt to pick pulling machine operator more sensors at the pharmacy today. f/up in September. DIABETES A1c is above goal of <7% - Medication management Diabetes Objective: Diabetes Medication Regimen: -- C/T semaglutide to 1 mg weekly (Wednesdays) -- c/t metformin 500 mg bid - decreased d/t CKD; eGFR 31ml/min on 08/08 --INCREASE Insulin Aspart mixed (VIAL) 70/30 6:30-7AM = 26 units IF BG after breakfast still elevated may further incresae to 28 units in AM 6 PM = 20 units - TDD: 46 units - Reviewed [place] lab results - Monitor for s/sx hypoglycemia [...] of Preventive Care: Most recent visit to varnishing unit tool setter[facility]; seen by Dr. Reyes 2 weeks ago; Most recent visit to [facility]ometry:[facility]; last visit in 2021: 1. Diabetes mellitus without retinopathy or macular edema. Clinic's Next Scheduled Follow-up: 09/16/23 No barriers; Patient understands and agrees to [...] current medication due to other reason Plan: adjust dose of morning insulin mixed dose Medication monitoring, no dosage change required, continue to monitor and assess /radhames/ TARUN GILL CLINICAL SCREW MACHINE OPERATOR SINGLE SPINDLE Signed: 08/06/2023 08:18 Receipt Acknowledged By: 08/07/2023 00:50 /radhames/ MARGARITA FLOREZ MD PHYSICIAN TARUN GILLFIELD
--- OUTSIDE RECORDS SUMMARY | 2024-05-24 13:10 | XMS_ITS | Encounter Summary ---
Author Name [facility] [place] Address [address] [place] [id number] Care Team Providers Care Pulley Mortiser Operator Name Role Phone MARGARITA FLOREZ Primary [...] Name Patient's Relationship to Policy Bejarano ALVA BENEDICTBS OF [place] MEDICARE [facility] Dec 13, 2013 [id number] DAGMAR,ZIA ERT PATIENT BCBS [place] MEDICARE SUPPLEMEN [facility] November 06, 2007 [id number] DAGMAR,ZIA ERT PATIENT [place] MED[place] SUPPLEMEN [facility]EX 2 November 06, 2007 [id number] DAGMAR,ZIA ERT PAT[place] [facility] 2 November 06, 2007 [id number] DAGMAR,ZIA ERT PATIENT BCBS OF [facility] MEDICARE SUPPLEMEN [facility] Dec 13, 2013 [id number] DAGMAR,ZIA ERT PATIENT [place] SU[place]MEN [facility] MMHG/ WHITM AN/MX Dec 13, 2008 [id number] DAGMAR,ZIA ERT PATIENT MEDICARE (WNR) MEDICARE () PART B May 15, 2012 PART B [id number] DAGMAR,ZIA ERT PATIENT MEDICARE (WNR) MEDICARE () PART A May 15, 2002 PART A [id number] [phone] DAGMAR,ZIA ERT PATIENT MEDICARE (WNR) MEDICARE () PART B May 15, 2002 PART B [id number] DAGMAR,ZIA ERT PATIENT MEDICARE (WNR) MEDICARE () PART A May 15, 2002 PART A [id number] DAGMAR,ZIA ERT PATIENT MEDICARE (WNR) MEDICARE () PART A May 15, 2002 PART A [id number] DAGMAR,ZIA ERT PATIENT MEDICARE (WNR) MEDICARE () PART B May 15, 2002 PART B [id number] DAGMAR,ZIA ERT PATIENT MEDICARE (WNR) MEDICARE () PART A May 15, 2002 PART A [id number] [phone] DAGMAR,ZIA ERT PATIENT MEDICARE (WNR) MEDICARE () PART B May 15, 2002 PART B [id number] [phone] DAGMAR,ZIA ERT PATIENT Selected Encounter This section includes the information on record at [place] for the Encounter. Date/Time Encounter Type Encounter Description Reason Provider Source Jul 13, 2023 09:27 AM POS AIRWAY PRESSURE CPAP TELEPHONE/MEDICIN E ICD-10-CM G47.33 Obstructive sleep apnea (adult) (pediatric) RANJITH FIELDS Grecia Encounter Template Text not used by [place] Assessments - Encounter Diagnoses This section includes the primary and secondary diagnoses documented for the Encounter. Date/Time Primary/Secondary Diagnosis Diagnosis Name Provider Source Jul 13, 2023 09:27 AM PRIMARY Obstructive sleep apnea (adult) (pediatric) RANJITH FIELDS [facility] Plan of Treatment: Future Appointments (+ 6 months) and Future Tests (+/- 45 days) The Plan of Treatment section includes future care activities for the patient from all [place] [facility]. This section includes future appointments and future orders which are active, pending or scheduled. Future Appointments This section includes appointments that were scheduled to occur 6 months from the date of the Encounter, up to a maximum of 20 appointments. The data comes from all [facility] facilities. Appointment Date/Time Appointment Type Appointme nt Facility Name Aug 05, 2023 01:00 PM AM[place]ULATORY [place] [place] [facility] Aug 07, 2023 02:00 PM [facility] Sep 07, 2023 03:00 PM [facility] Sep 15, 2023 11:00 AM [facility] - [facility]ICINE [facility] Sep 16, 2023 01:00 PM AMBULATORY - MEDICINE [facility] Sep 18, 2023 10:30 AM AMBULATORY - REHAB MEDICIN E [place] Sep 23, 2023 01:00 PM [facility]ATORY - MEDICINE [facility] Sep 23, 2023 01:15 PM [facility]ORY - MEDICINE [facility] Sep 30, 2023 03:00 PM [facility]ATORY - MEDICINE [facility] Sep 30, 2023 03:15 PM [facility]ORY - MEDICINE [facility] Oct 13, 2023 01:00 PM AMBULATORY - MEDICINE [place] [facility] [place] [facility] October 16, 2023 01:00 PM AMBULATORY - MEDICINE [place] [facility] [place] [facility] Dec 15, 2023 02:30 PM [facility]ORY - MEDICINE [facility] Dec 30, 2023 03:00 PM AMBULATORY - MEDICINE [facility] Social History: Smoking Status (Most current) and Tobacco Use (All prior to encounter date) This section includes the most current, and the historical, smoking and tobacco- related health factors from the [place] facility where the Encounter took place. Current Smoking Status This section includes the most current smoking, or tobacco-related health factor, from the [place] facility where the Encounter took place. Date/Time Current Smoking Status Comment Facil ity Apr 15, 2022 01:00 PM [place]-TOBACCO NEVER USED [place] [facility] [place] [facility] Encounter Notes: All associated encounter notes This section contains the clinical notes associated to the Encounter. Date/Time Encounter Note(s) Provider Source Jul 13, 2023 09:27 AM RESPIRATORY THERAP Y NOTE: LOCAL TITLE: RESPIRATORY THERAPY NOTE(BLANK) STANDARD TITLE: RESPIRATORY THERAPY NOTE DATE OF NOTE: JUL 13, 2023@09:27 ENTRY DATE: JUL 13, 2023@09:28:25 AUTHOR: RANJITH FIELDS EXP COSIGNER: URGENCY: STATUS: COMPLETED Attempted to contact [place], dx with DAMIEN, for cpap follow up and left message for him to c/b with any questions or concerns. /es/ RANJITH FIELDS CRT RESPIRATORY THERAPIST Signed: 07/13/2023 09:29 RANJITH FIELDSFIELD
--- OUTSIDE RECORDS SUMMARY | 2024-05-24 13:11 | XMS_ITS | Encounter Summary ---
Author Name [place] Address [address] [place] [address] Care Team Providers Care Medical Collections Specialist Name Role Phone MARGARITA FLOREZ Primary [...] Relationship to Policy Bejarano ALVA [place] MEDICARE SUPPLEMEN [facility] Dec 13, 2013 [id number] [phone] DAGMAR,ZIA ERT PATIENT [place] [facility] November 06, 2007 [id number] DAGMAR,ZIA ERT PATIENT [place] [facility] 2 November 06, 2007 [id number] [phone] DAGMAR,ZIA ERT PAT[place] [facility] 2 November 06, 2007 [id number] DAGMAR,ZIA ERT PATIENT BCBS OF [facility] MEDICARE SUPPLEMEN [place] [facility] Dec 13, 2013 [id number] DAGMAR,ZIA ERT PATIENT [facility] MEDICARE ROSALBA RAUSCH [facility] AN/MX Dec 13, 2008 [id number] [phone] DAGMAR,ZIA ERT PATIENT MEDICARE (WNR) MEDICARE (M) PART B May 15, 2012 PART B [id number] DAGMAR,ZIA ERT PATIENT MEDICARE (WNR) MEDICARE (M) PART A May 15, 2002 PART A [id number] DAGMAR,ZIA ERT PATIENT MEDICARE (WNR) MEDICARE (M) PART A May 15, 2002 PART A [id number] [phone] DAGMAR,ZIA ERT PATIENT MEDICARE (WNR) MEDICARE (M) PART B May 15, 2002 PART B [id number] DAGMAR,ZIA ERT PATIENT MEDICARE (WNR) MEDICARE (M) PART B May 15, 2002 PART B [id number] DAGMAR,ZIA ERT PATIENT MEDICARE (WNR) MEDICARE (M) PART A May 15, 2002 PART A [id number] [phone] DAGMAR,ZIA ERT PATIENT MEDICARE (WNR) MEDICARE (M) PART B May 15, 2002 PART B [id number] [phone] DAGMAR,ZIA ERT PATIENT MEDICARE (WNR) MEDICARE (M) PART A May 15, 2002 PART A [id number] DAGMAR,ZIA ERT PATIENT Selected Encounter This section includes the information on record at CT for the Encounter. Date/Time Encounter Type Encounter Description Reason Pro vider Source Aug 27, 2023 03:15 PM Outpatient Encounter ADMIN PAT ACTIVTIES (MASNONCT) [...] 20 appointments. The data comes from all CT treatment facilities. Appointment Date/Time Appointment Type Appointme nt Facility Name Sep 07, 2023 03:00 PM AMBULATORY - REHAB MEDICIN E [place] [facility] [place] [facility] Sep 15, 2023 11:00 AM [facility] Sep 16, 2023 01:00 PM AMBULATORY - MEDICINE [facility] [place] [facility] Sep 18, 2023 10:30 AM AMBULATORY - REHAB MEDICIN E [place] Sep 23, 2023 01:00 PM [facility]ORY [facility]ICINE [facility] Sep 23, 2023 01:15 PM [facility] Sep 30, 2023 03:00 PM [facility] Sep 30, 2023 03:15 PM [facility] Oct 13, 2023 01:00 PM AMBULATORY - MEDICINE [facility] C [facility] [place] [facility] October 16, 2023 01:00 PM AMBULATORY - MEDICINE CT C [facility] [place] [facility] Dec 15, 2023 02:30 PM AM[facility]ULATORY - MEDICINE [facility] Dec 30, 2023 03:00 PM AMBULATORY - MEDICINE CT C [facility] [place] [facility] Lab Results: +/- 30 days of the encounter This section includes the Chemistry and Hematology Lab Results on record with CT for the patient. Radiology Reports and Pathology Reports are provided separately, in subsequent sections. Lab Results This section contains the Chemistry/Hematology Results that were resulted 30 days before or 30 daysafter the date of the Encounter. Date/Time Source Result Type Result - Unit Interpretation Reference Range Comment Sep 23, 2023 01:35 PM [place] COVID-19 FLU/RSV DIAGNOSTIC PANEL Speci men Type: NASOPHARYNX Comment: This test is authorized for emergency use only. False negative results may occur if virus is present at levels below the analytical limit of detection.Nega tive results do not preclude SARS-CoV-2, influenza or RSV infection and should not be used as the sole basis for treatment or other patient management decisions.[facility] FLUVID: HCPs: https://www.MadeClose a.gov/media/ 7044/download. Patients: https://www.MadeClose a.gov/media/ 7754/download Ordering Provider: CHATO ADHIKARI Report Released Date/Time: Sep 23, 2023 01:14 PM Reporting Lab: [address] [address] Performing Lab: [address] [address] COVID-19 PCR (FLUVID) NEGATIVE NEGATIVE FLU A PCR (FLUVID) NEGATIVE FLU B PCR (FLUVID) NEGATIVE RSV PCR (FLUVID) NEGATIVE Sep 16, 2023 01:56 PM [facility] HEMOGLOBIN A1C PANEL Specimen Type: BLOOD Comment: Values obtained from A1C measurements can vary. For atypical A1C assays, a reported value of 7.0 could actually be between 6.72 and 7.28 if measured by a reference method. A reported value of 9.0 could actually be between 8.73 and 9.27. Ref: http://www.ngs p.org/CAPdata. asp Ordering Provider: NIK GILL Report Released Date/Time: Sep 16, 2023 01:09 PM Reporting Lab: [address] [address] Performing Lab: [address] [address] HEMOGLOBIN A1C 6.8 H 4.0-5.6 Sep 16, 2023 01:56 PM [facility] BASIC METABOLIC PANEL (non-fasting) Specimen Type: SERUM No comment entered. Ordering Provider: NIK GILL Report Released Date/Time: Sep 16, 2023 01:09 PM Reporting Lab: [address] [address] Performing Lab: [address] [address] UREA NITROGEN 25 mg/dL 7-25 GLUCOSE 234 mg/dL H 65-100 SODIUM 140 mmol/L 135-145 POTASSIUM 5.0 mmol/L 3.5-5.0 CHLORIDE 106 mmol/L 100-110 CO2 23 meq/L 20-30 CREATININE, Serum 1.80 mg/dL H 0.50-1.40 eGFR(CKD-EPI 2020) 36 mL/min L >60 Sep 16, 2023 01:56 PM [facility] CBC Specimen Type: BLOOD No comment entered. Ordering Provider: NIK GILL Report Released Date/Time: Sep 16, 2023 01:09 PM Reporting Lab: [facility] [address] [facility] [address] Performing Lab: [facility] [address] [address] WBC 7.86 10*3/uL 4.50-11.00 RBC 4.28 10*6/uL 4.23-5.66 HGB 12.8 g/dL 12.8-17 HCT 39.0 L 39.2-50.4 MCV 91.1 fL 82-99 MCHC 32.8 g/dL 30.8-35.1 PLT 189 10*3/uL 140-360 RDW-CV 13.3 12.0-16.0 MCH 29.9 pg 26.2-32.6 Social History: Smoking Status (Most current) and Tobacco Use (All prior to encounter date) This section includes the most current, and the historical, smoking and tobacco- related health factors from the CT facility where the Encounter took place. Current Smoking Status This section includes the most current smoking, or tobacco-related health factor, from the [place] facility where the Encounter took place. Date/Time Current Smoking Status Comment Facil ity Apr 15, 2022 01:00 PM VA-TOBACCO NEVER USED [facility] Radiology Reports: +/- 30 days of the encounter Radiology Reports For cases when an order for radiology services may have been completed prior to the date of the Encounter, the report list includes the Radiology Reports that were completed up to 30 days before dateof the Encounter. For cases when an order for radiology services may have been completed after the date of the Encounter, the report list also includes the Radiology Reports that were completed up to30 days after date of the Encounter. The data comes from all CT treatment facilities. Date/Time Radiology Report Provider Source Sep 24, 2023 03:11 PM CHEST (2 VIEWS): ORLY LEAVITT [id number] -[id number] M Exm Date: SEP 24, 2023@15:11 Req Phys: CHATO ADHIKARI Loc: CWM/SO/SICK CALL DATA OPERATIONS MANAGER (Req'g Loc Img Loc: [facility] 1 Service: Unknown (Case [id number] COMPLETE) CHEST (2 VIEWS) (RAD Detailed) CPT:28854 Reason for Study: wheezing, cough, SOB Clinical History: Covering resident, fellow, DATA OPERATIONS MANAGER or attending: Chato Adhikari NP CT Pager: [phone] Backup pager: History: Report Status: Verified Date Reported: SEP 24, 2023 Date Verified: SEP 24, 2023 Warehouse Engineer E-Sig:/ES/LATRICE DUNBAR JR Report: Study: PA and lateral chest x-ray. Comparison: None. Findings: Mild elevation of the left hemidiaphragm with mild atelectatic changes resulting at the left lung base. The lungs are otherwise clear. No acute pulmonary process is identified. The costophrenic sulci are sharp. Cardiac and mediastinal contours and pulmonary vascularity are normal. No acute skeletal abnormalities are identified. Age-appropriate degenerative changes are seen to the spine. Diffuse bony demineralization is present suspicious for osteopenia. Surgical clips in the abdomen on the lateral projection only. Impression: No acute pulmonary pathology. Primary Diagnostic Code: No immediate attention required Primary Interpreting Staff: LATRICE DUNBAR JR, Radiologist (Warehouse Engineer) /LATRICE BAGLEY JR CT CN[facility] Encounter Notes: All associated encounter notes This section contains the clinical notes associated to the Encounter. Date/Time Encounter Note(s) Provider Source Aug 27, 2023 03:15 PM ADMINISTRATIVE NOT E: LOCAL TITLE: CCC: SCHEDULING ADMINISTRATION STANDARD TITLE: ADMINISTRATIVE NOTE DATE OF NOTE: AUG 27, 2023@15:15:35 ENTRY DATE: AUG 27, 2023@15:15:35 AUTHOR: JOSE FLAHERTY COSIGNER: URGENCY: STATUS: COMPLETED Patient Demographics Patient Name: ORLY LEAVITT Patient Primary Phone: [phone] Patient Primary Address: [address] [place] [id number] Patient : 1935 Patient Age: 88 Caller/Recipient Relation to Patient: Self Administrative Administrative Note Reason: Other Administrative Note Comments: Patient asking for the status of his handicap placard that he handed in back in 2023? Please call patient at [phone]. /radhames/ JOSE WILDER 1 [facility] AMSA Signed: 08/27/2023 15:15 Receipt Acknowledged By: 09/01/2023 10:51 /es/ LENNOX PEARCE RN REGISTERED NURSE 09/02/2023 09:23 /es/ LILLIANA CHRISTIE LPN, KATIE L [facility]
--- OUTSIDE RECORDS SUMMARY | 2024-05-24 13:11 | XMS_ITS ---
Author Name [place] Address [address] [place] [address] Care Team Providers Care Marine Transport Professionals Name Role Phone MARGARITA FLOREZ Primary Care [...] Relationship to Policy Bejarano ALVA [place] MEDICARE SUPPLEMEN [facility] Dec 13, 2013 [id number] [phone] DAGMAR,ZIA ERT PATIENT [place] MED[place] SUPPLEMEN [place] [facility] November 06, 2007 [id number] DAGMAR,ZIA ERT PATIENT [place] [facility] 2 November 06, 2007 [id number] DAGMAR,ZIA ERT PAT[place] [facility] 2 November 06, 2007 [id number] DAGMAR,ZIA ERT PATIENT BCBS OF [facility] MEDICARE SUPPLEMEN [facility] Dec 13, 2013 [id number] [phone] DAGMAR,ZIA ERT PATIENT [facility] MEDICARE SUPPLEMEN [place] [facility]/ [facility]M AN/MX Dec 13, 2008 [id number] DAGMAR,ZIA ERT PATIENT MEDICARE (WNR) MEDICARE () PART B May 15, 2012 PART B [id number] [phone] DAGMAR,ZIA ERT PATIENT MEDICARE (WNR) MEDICARE () PART A May 15, 2002 PART A [id number] [phone] DAGMAR,ZIA ERT PATIENT MEDICARE (WNR) MEDICARE () PART B May 15, 2002 PART B [id number] [phone] DAGMAR,ZIA ERT PATIENT MEDICARE (WNR) MEDICARE () PART A May 15, 2002 PART A [id number] [phone] DAGMAR,ZIA ERT PATIENT MEDICARE (WNR) MEDICARE () PART A May 15, 2002 PART A [id number] DAGMAR,ZIA ERT PATIENT MEDICARE (WNR) MEDICARE () PART B May 15, 2002 PART B [id number] [phone] DAGMAR,ZIA ERT PATIENT MEDICARE (WNR) MEDICARE () PART B May 15, 2002 PART B [id number] DAGMAR,ZIA ERT PATIENT MEDICARE (WNR) MEDICARE () PART A May 15, 2002 PART A [id number] [phone] DAGMAR,ZIA ERT PATIENT Selected Encounter This section includes the information [facility] record at [facility] for the [facility]counter. Date/Time Encounter Type Encounter Description Reason Provider Source Aug 07, 2023 02:00 PM HEARING AID EXAM BOTH EARS AUDIOLOGY ICD-10-CM H90.3 Sensorineural hearing loss, bilateral CAMINITI,FLORENCE E IHE Encounter Template Text not used by [facility] Assessments - Encounter Diagnoses This section includes the primary and secondary diagnoses documented for the Encounter. Date/Time Primary/Secondary Diagnosis Diagnosis Name Provider Source Aug 07, 2023 02:40 PM PRIMARY Sensorineural hearing loss, bilateral CAMINITI,[place]ORENCE E [place] [facility] [facility] Plan of Treatment: Future Appointments (+ 6 months) and Future Tests (+/- 45 days) The Plan of Treatment section includes future care activities for the patient from [facility] [place] [facility]. This section includes future appointments and future orders which are active, pending or scheduled. Future Appointments This section includes appointments that were scheduled to occur 6 months from the date of the Encounter, up to a maximum of 20 appointments. The data comes from all [place] treatment facilities. Appointment Date/Time Appointment Type Appointme nt Facility Name Sep 07, 2023 03:00 PM AMBULATORY - [place] MEDICIN [place] [facility] Sep 15, 2023 11:00 AM AM[facility]ULATORY - MEDICINE [facility] Sep 16, 2023 01:00 PM AMBULATORY - MEDICINE [place] [facility] Sep 18, 2023 10:30 AM AMBULATORY - REHAB MEDICIN E [place] Sep 23, 2023 01:00 PM AMBULATORY - MEDICINE [facility] Sep 23, 2023 01:15 PM AMBULATORY - MEDICINE [facility] Sep 30, 2023 03:00 PM [place] Sep 30, 2023 03:15 PM AMBULATORY - MEDICINE [facility] Oct 13, 2023 01:00 PM AMBULATORY - MEDICINE [place] [facility] October 16, 2023 01:00 PM AMBULATORY - MEDICINE [place] [facility] Dec 15, 2023 02:30 PM AMBULATORY - MEDICINE [facility] Dec 30, 2023 03:00 PM [facility] Social History: Smoking Status (Most current) and Tobacco Use (All prior to encounter date) This section includes the most current, and the historical, smoking and tobacco- related health factors from the [place] facility where the Encounter took place. Current Smoking Status This section includes the most current smoking, or tobacco-related health factor, from the [place] facility where the Encounter took place. Date/Time Current Smoking Status Comment Jesus fall Apr 15, 2022 01:00 PM VA-TOBACCO NEVER USED [facility] Encounter Notes: All associated encounter notes This section contains the clinical notes associated to the Encounter. Date/Time Encounter Note(s) Provider Source Aug 07, 2023 11:56 AM AUDIOLOGY E & M NO TE: LOCAL TITLE: AUDIOLOGY CLINIC STANDARD TITLE: AUDIOLOGY E & M NOTE DATE OF NOTE: AUG 07, 2023@11:56 ENTRY DATE: AUG 07, 2023@11:56:10 AUTHOR: FLORENCE LI COSIGNER: URGENCY: STATUS: COMPLETED AUDIOLOGY CLINIC Has ADDENDA Unruly was seen 08-07-23 for a hearing re-evaluation. Hearing was last evaluated in 2019. He currently uses binaural Florentino BTE Rs, issued in 2019- he reports reduced benefit. He reports no otologic changes. He states that hearing may have declined. Results are as follow: Otoscopy is WNL for both ears. Pure tone audiometric testing with headphones revealed a mild/moderate sloping to a moderately severe/severe sensorineural hearing loss bilaterally. Word recognition scores were fair with 72% correct for the right ear and 76% correct for the left ear for recorded speech presented at 85 dB HL (masked). Normal tympanograms were obtained bilaterally. Results obtained today are considered overall stable in comparison to those from 2020. Replaced thin tubes, domes, and gabby covers. Sound check was positive. Increased overall gain 1 step. was counseled on today's test results. Given the age and technology of 's current amplification, he is considered eligible for new hearing aids. Binaural rechargeable BTEs with a TV streamer and remote are recommended and agrees. With his verbal consent, ear impressions were taken without incident. Fitting was scheduled for 09-07-23 at 3pm, RTC placed. /radhames/ Anastacia JUAREZ, [facility]-A STAFF USABILITY ARCHITECT Signed: 08/07/2023 14:49 Receipt Acknowledged By: 08/07/2023 15:08 /osvaldo CRUZ ADVANCED STAFF REPORTER 08/19/2023 ADDENDUM STATUS: COMPLETED Hearing aids received and certified, upcoming appointment scheduled on 09/07/2023. /radhames/ JES GUDINO Audiology Health Aircraft Inspector Signed: 08/19/2023 15:[address] [facility]
--- OUTSIDE RECORDS SUMMARY | 2024-05-24 13:11 | XMS_ITS | Encounter Summary ---
Author Name [place] Address [address] [place] [address] Care Team Providers Care Emergency Department Manager Name Role Phone MARGARITA FLOREZ Primary Care [...] Relationship to Policy Bejarano ALVA [place] MEDICARE SUPPLEMEN [facility] Dec 13, 2013 [id number] DAGMAR,ZIA ERT PATIENT [place] MED[place] SUPPLEMEN [place] [facility] November 06, 2007 [id number] DAGMAR,ZIA ERT PATIENT [place]PP[place] MEDEX 2 November 06, 2007 [id number] [phone] DAGMAR,ZIA ERT PATIENT [place] MEDEX 2 November 06, 2007 [id number] DAGMAR,ZIA ERT PATIENT BCBS OF [facility] MEDICARE SUPPLEMEN [facility] Dec 13, 2013 [id number] DAGMAR,ZIA ERT PATIENT BCBS OF [facility] MEDICARE SUPPLEMEN [place] MM[facility]/ WHITM AN/MX Dec 13, 2008 [id number] [phone] DAGMAR,ZIA ERT PATIENT MEDICARE (WNR) MEDICARE () PART B May 15, 2012 PART B [id number] DAGMAR,ZIA ERT PATIENT MEDICARE (WNR) MEDICARE () PART A May 15, 2002 PART A [id number] DAGMAR,ZIA ERT PATIENT MEDICARE (WNR) MEDICARE () PART B May 15, 2002 PART B [id number] DAGMAR,ZIA ERT PATIENT MEDICARE (WNR) MEDICARE () PART A May 15, 2002 PART A [id number] [phone] DAGMAR,ZIA ERT PATIENT MEDICARE (WNR) MEDICARE () PART A May 15, 2002 PART A [id number] DAGMAR,ZIA ERT PATIENT MEDICARE (WNR) MEDICARE () PART B May 15, 2002 PART B [id number] [phone] DAGMAR,ZIA ERT PATIENT MEDICARE (WNR) MEDICARE () PART A May 15, 2002 PART A [id number] DAGMAR,ZIA ERT PATIENT MEDICARE (WNR) MEDICARE () PART B May 15, 2002 PART B [id number] DAGMAR,ZIA ERT PATIENT Selected Encounter This section includes the [place] at [place] for the Encounter. Date/Time Encounter Type Encounter Description Reason Provider Source Jun 12, 2023 10:49 AM Outpatient Encounter PROSTHETICS/ORTHOTI CS MEGAN Narvaez,MARGARITA Santillan IHE Encounter Template Text not used by [...] 17, 2023 08:30 AM AMBULATORY - MEDICINE [place] [facility] Jun 22, 2023 09:00 AM AMBULATORY - MEDICINE [place] [facility] Aug 05, 2023 01:00 PM AMBULATORY - MEDICINE [place] [facility] Aug 07, 2023 02:00 PM AMBULATORY - REHAB MEDICIN E [place] [facility] [place] [facility] Sep 07, 2023 03:00 PM AMBULATORY - REHAB MEDICIN E [place] [facility] [place] [facility] Sep 15, 2023 11:00 AM AMBULATORY - MEDICINE [facility] Sep 16, 2023 01:00 PM AMBULATORY - MEDICINE [place] [facility] Sep 18, 2023 10:30 AM AMBULATORY - REHAB MEDICIN E [place] Sep 23, 2023 01:00 PM [facility] Sep 23, 2023 01:15 PM [facility] - MEDICINE [facility] Sep 30, 2023 03:00 PM [facility] Sep 30, 2023 03:15 PM AM[facility]ULATORY - MEDICINE [facility] Oct 13, 2023 01:00 PM AMBULATORY - MEDICINE [place] [facility] October 16, 2023 01:00 PM [facility]ORY [facility] Lab Results: +/- 30 days of the encounter This section includes the Chemistry and Hematology Lab Results on record with [place] for the patient. Radiology Reports and Pathology Reports are provided separately, in subsequent sections. Lab Results This section contains the Chemistry/Hematology Results that were resulted 30 days before or 30 daysafter the date of the Encounter. Date/Time Source Result Type Result - Unit Interpretation Reference Range Comment May 27, 2023 01:06 PM [place] MAGNESIUM Specimen Type: SERUM No comment entered. Ordering Provider: MARGARITA DIAMOND Report Released Date/Time: May 11, 2023 01:25 PM Reporting Lab: [place] [address] [place] [address] Performing Lab: [facility] [address] [facility] [address] MAGNESIUM 1.3 mg/dL L 1.6-2.6 May 27, 2023 01:06 PM [place] BASIC METABOLIC PANEL (non-fasting) Spe cimen Type: SERUM No comment entered. Ordering Provider: MARGARITA DIAMOND Report Released Date/Time: May 11, 2023 01:25 PM Reporting Lab: [facility] [address] [facility] [address] Performing Lab: [facility] [address] [facility] [address] UREA NITROGEN 32 mg/dL H 7-25 GLUCOSE [...] 15, 2022 01:00 PM VA-TOBACCO NEVER USED [facility]
--- OUTSIDE RECORDS SUMMARY | 2024-05-24 13:12 | XMS_ITS ---
Author Name [facility] [place] Address [address] [place] [address] Care Team Providers Care Industrial Hygiene Engineer Name Role Phone MARGARITA FLOREZ Primary Care [...] Relationship to Policy Bejarano ALVA [place] MEDICARE [facility] Dec 13, 2013 [id number] [phone] DAGMAR,ZIA ERT PATIENT [place] SUPPLEMEN [facility] November 06, 2007 [id number] [phone] DAGMAR,ZIA ERT PATIENT [place] SUPPLEMEN [facility] MEDEX 2 November 06, 2007 [id number] [phone] DAGMAR,ZIA ERT [place] SUPPLEMEN [facility] MEDEX 2 November 06, 2007 [id number] DAGMAR,ZIA ERT PATIENT BCBS OF [facility] MEDICARE SUPPLEMEN [facility] Dec 13, 2013 [id number] DAGMAR,ZIA ERT PATIENT BCBS OF [facility] MEDICARE SUPPLEMEN [facility] MMHG/ WHITM AN/MX Dec 13, 2008 [id number] DAGMAR,ZIA ERT PATIENT MEDICARE (WNR) MEDICARE () PART B May 15, 2012 PART B [id number] [phone] DAGMAR,ZIA ERT PATIENT MEDICARE (WNR) MEDICARE () PART A May 15, 2002 PART A [id number] [phone] DAGMAR,ZIA ERT PATIENT MEDICARE (WNR) MEDICARE () PART B May 15, 2002 PART B [id number] [phone] DAGMAR,ZIA ERT PATIENT MEDICARE (WNR) MEDICARE () PART A May 15, 2002 PART A [id number] DAGMAR,ZIA ERT PATIENT MEDICARE (WNR) MEDICARE () PART A May 15, 2002 PART A [id number] DAGMAR,ZIA ERT PATIENT MEDICARE (WNR) MEDICARE () PART B May 15, 2002 PART B [id number] DAGMAR,ZIA ERT PATIENT MEDICARE (WNR) MEDICARE () PART B May 15, 2002 PART B [id number] [phone] DAGMAR,ZIA ERT PATIENT MEDICARE (WNR) MEDICARE () PART A May 15, 2002 PART A [id number] [phone] DAGMAR,ZIA ERT PATIENT Selected Encounter This section includes the information on record at [place] for the Encounter. Date/Time Encounter Type Encounter Description Reason Provider Source Sep 07, 2023 03:00 PM HEARING SERVICE AUDIOLOGY ICD-10-CM Z46.1 Encounter for fitting and adjustment of hearing aid FLORENCE LI Encounter Template Text not used by [place] Assessments - Encounter Diagnoses This section includes the primary and secondary diagnoses documented for the Encounter. Date/Time Primary/Secondary Diagnosis Diagnosis Name Provider Source Sep 07, 2023 03:43 PM PRIMARY Encounter for fitting and adjustment of hearing aid FLORENCE LI [place] [facility] [place] [facility] Sep 07, 2023 03:43 PM SECONDARY Sensorineural hearing loss, bilateral FLORENCE LI E [place] [facility] [place] [facility] Plan of Treatment: Future Appointments (+ 6 months) and Future Tests (+/- 45 days) The Plan of Treatment section includes future care activities for the patient from all [place] treatmentfacilities. This section includes future appointments and future orders which are active, pending or scheduled. Future Appointments This section includes appointments that were scheduled to occur 6 months from the date of the Encounter, up to a maximum of 20 appointments. The data comes from all [place] treatment facilities. Appointment Date/Time Appointment Type Appointme nt Facility Name Sep 15, 2023 11:00 AM [facility] Sep 16, 2023 01:00 PM AMBULATORY - MEDICINE [place] [facility] [place] [facility] Sep 18, 2023 10:30 AM AMBULATORY - REHAB MEDICIN E [facility] Sep 23, 2023 01:00 PM [facility] Sep 23, 2023 01:15 PM [facility] Sep 30, 2023 03:00 PM [facility] Sep 30, 2023 03:15 PM [facility] Oct 13, 2023 01:00 PM AMBULATORY - MEDICINE [place] [facility] [place] [facility] October 16, 2023 01:00 PM AMBULATORY - MEDICINE [place] [facility] [place] [facility] Dec 15, 2023 02:30 PM [facility] Dec 30, 2023 03:00 PM AMBULATORY - MEDICINE [place] [facility] [place] [facility] Mar 02, 2024 03:00 PM [facility] Lab Results: +/- 30 days of the encounter This section includes the Chemistry and Hematology Lab Results on record with [place] for the patient. Radiology Reports and Pathology Reports are provided separately, in subsequent sections. Lab Results This section contains the Chemistry/Hematology Results that were resulted 30 days before or 30 daysafter the date of the Encounter. Date/Time Source Result Type Result - Unit Interpretation Reference Range Comment Sep 23, 2023 01:35 PM [facility] COVID-19 FLU/RSV DIAGNOSTIC PANEL Speci men Type: NASOPHARYNX Comment: This test is authorized for emergency use only. False negative results may occur if virus is present at levels below the analytical limit of detection.Nega tive results do not preclude SARS-CoV-2, influenza or RSV infection and should not be used as the sole basis for treatment or other patient management decisions.[facility] mone FLUVID: HCPs: https://www.[employer] a.gov/media/ 639/download. Patients: https://www.[employer] a.gov/media/2435/download Ordering Provider: CHATO ADHIKARI Report Released Date/Time: Sep 23, 2023 01:14 PM Reporting Lab: [address] [address] Performing Lab: [address] [address] COVID-19 PCR (FLUVID) NEGATIVE NEGATIVE FLU A PCR (FLUVID) NEGATIVE FLU B PCR (FLUVID) NEGATIVE RSV PCR (FLUVID) NEGATIVE Sep 16, 2023 01:56 PM [facility] HEMOGLOBIN A1C PANEL Specimen Type: BLOOD Comment: [...] Sep 16, 2023 01:09 PM Reporting Lab: [address] [address] Performing Lab: [address] [address] HEMOGLOBIN A1C 6.8 H 4.0-5.6 Sep 16, 2023 01:56 PM [facility] BASIC METABOLIC PANEL (non-fasting) Specimen Type: SERUM No comment entered. Ordering Provider: NIK GILL Report Released Date/Time: Sep 16, 2023 01:09 PM Reporting Lab: [address] [address] Performing Lab: [facility] [address] [facility] [address] UREA NITROGEN 25 mg/dL 7-25 GLUCOSE 234 mg/dL H 65-100 SODIUM 140 mmol/L 135-145 POTASSIUM 5.0 mmol/L 3.5-5.0 CHLORIDE 106 mmol/L 100-110 CO2 23 meq/L 20-30 CREATININE, Serum 1.80 mg/dL H 0.50-1.40 eGFR(CKD-EPI 2020) 36 mL/min L >60 Sep 16, 2023 01:56 PM [facility] CBC Specimen Type: BLOOD No comment entered. Ordering Provider: NIK GILL Report Released Date/Time: Sep 16, 2023 01:09 PM Reporting Lab: [address] [address] Performing Lab: [address] [address] WBC 7.86 10*3/uL 4.50-11.00 RBC 4.28 10*6/uL [...] and tobacco- related health factors from the [place] facility where the Encounter took place. Current Smoking Status This section includes the most current smoking, or tobacco-related health factor, from the [place] facility where the Encounter took place. Date/Time Current Smoking Status Comment Facil juan david Apr 15, 2022 01:00 PM VA-TOBACCO NEVER USED [facility] Radiology Reports: +/- 30 days of the [...] the Encounter. The data comes from all [place] treatment facilities. Date/Time Radiology Report Provider Source Sep 24, 2023 03:11 PM CHEST (2 VIEWS): ORLY LEAVITT [id number] -[id number] M Exm Date: SEP 24, 2023@15:11 Req Phys: CHATO ADHIKARI Loc: CWM/SO/SICK CALL REAL ESTATE ASSOCIATE (Req'g Loc Img Loc: [facility]BUILDING 1 Service: Unknown (Case [id number] COMPLETE) CHEST (2 VIEWS) (RAD Detailed) CPT:56368 Reason for Study: wheezing, cough, SOB Clinical History: Covering resident, fellow, REAL ESTATE ASSOCIATE or attending: Chato Adhikari NP [place] Pager: [phone] Backup pager: History: Report Status: Verified Date Reported: SEP 24, 2023 Date Verified: SEP 24, 2023 Alterations Supervisor E-Sig:/ES/LATRICE DUNBAR JR Report: Study: PA and [...] Primary Interpreting Staff: LATRICE DUNBAR JR, Radiologist (Alterations Supervisor) /LATRICE BAGLEY JR [place] [facility] Encounter Notes: All associated encounter notes This section contains the clinical notes associated to the Encounter. Date/Time Encounter Note(s) Provider Source Sep 07, 2023 11:53 AM AUDIOLOGY E & M NO TE: LOCAL TITLE: AUDIOLOGY CLINIC STANDARD TITLE: AUDIOLOGY E & M NOTE DATE OF NOTE: SEP 07, 2023@11:53 ENTRY DATE: SEP 07, 2023@11:53:55 AUTHOR: FLORENCE LI COSIGNER: URGENCY: STATUS: COMPLETED AUDIOLOGY CLINIC Has ADDENDA Diagnosis: bilateral sensorineural hearing loss Hearing Aid Fitting: SUBJECTIVE (S): The was seen for hearing aid fitting and issuance. S/He had previously been evaluated and found to exhibit significant hearing loss for which amplification was recommended. How does the patient/client best learn? verbal instruction, demonstration Does the patient/client have any cultural and sikhism beliefs, emotional barriers, physical or cognitive limitations, and communication barriers which may impact his/her ability to learn? no Desire and motivation to learn? Good OBJECTIVE (O): Physical fit of earmolds/receivers and domes/hearing aids was good. [place] verified comfort. Verification of an appropriate acoustic response was obtained using Real Ear measurements (speech mapping) and NAL-NL1 targets. The reported good subjective benefit as well. Feedback automation sales manager was run. Hearing aids were found to be meeting targets adequately and MPO was not exceeding estimated UCL. Settings stored in SYLVIE. ASSESSMENT (A): The following device(s) was/were issued: Make: Florentino Model: Evolv AI BTE R, remote control, TV streamer Serial Numbers: [id number] Battery size: RECHARGEABLE Trial Period ends: 02-11-24 Domes/wax guards, etc.: n/a Earmold Information: clear, lucite, canal, thin tubes Microgrinder Operator size/power: n/a Program Settings (VC, Programs, Buttons): buttons disabled Fitting Formula: NAL-NL1 Remote programming: capable noted the right dome causes discomfort after he uses it for a while. Replaced both domes with the next size down today. Counseling was completed today throughout todays appointment using a standardized curriculum that includes but is not limited to; realistic expectations with amplification in adverse listening environments, acclimatization to own voice and environmental sounds (following real-ear measurements), the importance of consistent use of amplification, proper insertion/removal, care and maintenance (including wax guards/domes if applicable), signal and alerts of devices, and charging/batteries. The was provided the opportunity to practice in office and reports confidence/understanding in all items reviewed. [place] was given written reference materials today. The was informed of and agreed to [place] policy on hearing aid issuance: Users are responsible for the maintenance and security of their devices. Determination of need to replace a hearing aid is made by the [place] car repairer helper. Hearing aids will not be replaced in cases of neglect, abuse, or excessive loss. Items issued are for personal use only. Prognosis for successful hearing aid use is good. PLAN (P): 1. Contact clinic with any problems/concerns. 2. The International Outcome Inventory-Hearing Aids (IOI-SINGH) will be mailed to the in four weeks. He/she was asked to mail back to clinic after completion. Patient Education Education provided on the following topics: hearing aid management Education provided to: P Response to Education: CATHIE VÁSQUEZ, PI [place] Patient P Family F Significant Other SO Verbalizes Understanding VU Returns Demonstration RD Performs Independently PI Lacks Comprehension LC Refused Education RE Not Applicable NA /radhames/ Anastacia JUAREZ, [facility]-A STAFF BALANCING MACHINE SET UP WORKER Signed: 09/07/2023 16:11 10/21/2023 ADDENDUM STATUS: COMPLETED [place] returned IOI-SINGH Outcome Measure to the clinic via mail with an overall score of 24 Based on this score: i. No follow-up call is indicated _xx_ ii. Follow-up call is indicated and fitting clinician will be notified __ /es/ JES GUDINO Audiology Health Physical Aerodynamicist Signed: 10/21/2023 13:26 [facility]
--- OUTSIDE RECORDS SUMMARY | 2024-05-24 13:12 | XMS_ITS ---
Author Name [facility] [place] Address [address] [place] [address] Care Team Providers Care Installer Name Role Phone MARGARITA FLOREZ Primary Care [...] Relationship to Policy Bejarano [place] MEDICARE [facility] Dec 13, 2013 [id number] DAGMAR,ZIA ERT PATIENT [place]BS [place] MED[place]ARE SUPPLEMEN [facility] November 06, 2007 [id number] DAGMAR,ZIA ERT PATIENT [place] SUPPLEMEN [facility] MEDEX 2 November 06, 2007 [id number] DAGMAR,ZIA ERT PAT[place] SUPPLEMEN [facility] MEDEX 2 November 06, 2007 [id number] DAGMAR,ZIA ERT PATIENT BCBS OF [facility] MEDICARE SUPPLEMEN [facility] Dec 13, 2013 [id number] [phone] DAGMAR,ZIA ERT PATIENT [place] MED[place] SUPPLEMEN [facility] MMHG/ WHITM AN/MX Dec 13, 2008 [id number] DAGMAR,ZIA ERT PATIENT MEDICARE (WNR) MEDICARE () PART B May 15, 2012 PART B [id number] DAGMAR,ZIA ERT PATIENT MEDICARE (WNR) MEDICARE () PART A May 15, 2002 PART A [id number] [phone] DAGMAR,ZIA ERT PATIENT MEDICARE (WNR) MEDICARE (M) PART A May 15, 2002 PART A [id number] DAGMAR,ZIA ERT PATIENT MEDICARE (WNR) MEDICARE () PART B May 15, 2002 PART B [id number] DAGMAR,ZIA ERT PATIENT MEDICARE (WNR) MEDICARE () PART B May 15, 2002 PART B [id number] DAGMAR,ZIA ERT PATIENT MEDICARE (WNR) MEDICARE () PART A May 15, 2002 PART A [id number] DAGMAR,ZIA ERT PATIENT MEDICARE (WNR) MEDICARE () PART B May 15, 2002 PART B [id number] [phone] DAGMAR,ZIA ERT PATIENT MEDICARE (WNR) MEDICARE () PART A May 15, 2002 PART A [id number] [phone] DAGMAR,ZIA ERT PATIENT Selected Encounter This section includes the information on record at [place] for the Encounter. Date/Time Encounter Type Encounter Description Reason Pro vider Source Jul 14, 2023 12:00 AM Outpatient Encounter COMMUNITY CARE CONSULT IHE Encounter Template Text not used by [...] 20 appointments. The data comes from all [place] treatment facilities. Appointment Date/Time Appointment Type Appointme nt Facility Name Aug 05, 2023 01:00 PM AMBULATORY [facility]ICINE [facility] [place] [facility] Aug 07, 2023 02:00 PM AMBULATORY - REHAB MEDICIN [facility] [place] [facility] Sep 07, 2023 03:00 PM AMBULATORY - REHAB MEDICIN E [facility] [place] [facility] Sep 15, 2023 11:00 AM [facility] Sep 16, 2023 01:00 PM AMBULATORY - MEDICINE [facility] [place] [facility] Sep 18, 2023 10:30 AM AMBULATORY - REHAB MEDICIN E [facility] Sep 23, 2023 01:00 PM [facility]ORY [facility]ICINE [facility] Sep 23, 2023 01:15 PM [facility] Sep 30, 2023 03:00 PM [facility] Sep 30, 2023 03:15 PM [facility] Oct 13, 2023 01[facility]00 PM AMBULATORY - MEDICINE [facility] [place] [facility] October 16, 2023 01:00 PM AMBULATORY - MEDICINE [facility] [place] [facility] Dec 15, 2023 02:30 PM [facility] Dec 30, 2023 03:00 PM AMBULATORY - MEDICINE [place] [facility] [place] [facility] Social History: Smoking Status (Most current) and Tobacco Use (All prior to encounter date) This section includes the most current, and the historical, smoking and tobacco- related health factors from the [place] facility where the Encounter took place. Current Smoking Status This section includes the most current smoking, or tobacco-related health factor, from the [place] facility where the Encounter took place. Date/Time Current Smoking Status Comment Facil [facility]an david Apr 15, 2022 01:00 PM VA-TOBACCO NEVER USED [place] [facility] [place] [facility] Encounter Notes: All associated encounter notes This section contains the clinical notes associated to the Encounter. Date/Time Encounter Note(s) Provider Source Jul 14, 2023 12:00 AM NONVA CONSULT: LOCAL TITLE: COMMUNITY CARE-CONSULT RESULT NOTE STANDARD TITLE: NONVA CONSULT DATE OF NOTE: JUL 14, 2023 ENTRY DATE: SEP 01, 2023@11:37:24 AUTHOR: MAXIMILIAN TIJERINA EXP COSIGNER: URGENCY: STATUS: COMPLETED VistA Imaging - Scanned Document SCANNED DOCUMENT SIGNATURE NOT REQUIRED Electronically Filed: 09/01/2023 by: MAXIMILIAN ARCEO [facility]
--- OUTSIDE RECORDS SUMMARY | 2024-05-24 13:12 | XMS_ITS | Encounter Summary ---
Author Name [place] Address [address] [place] [address] Care Team Providers Care Rehabilitation Program Manager Name Role Phone MARGARITA FLOREZ Primary [...] Relationship to Policy Bejarano ALVA [place] OF [place] MEDICARE SUPPLEMEN [facility] Dec 13, 2013 [id number] [phone] DAGMAR,ZIA ERT PATIENT [place] SUPP[place] [facility] November 06, 2007 [id number] DAGMAR,ZIA ERT PAT[place] [facility] November 06, 2007 [id number] DAGMAR,ZIA ERT PAT[place] [facility] November 06, 2007 [id number] DAGMAR,ZIA ERT PATIENT BCBS OF [facility] MEDICARE SUPPLEMEN [facility] Dec 13, 2013 [id number] DAGMAR,ZIA ERT PATIENT [facility] MEDICARE ROSALBA RAUSCH [facility] AN/MX Dec 13, 2008 [id number] [phone] DAGMAR,ZIA ERT PATIENT MEDICARE (WNR) MEDICARE (M) PART B May 15, 2012 PART B [id number] [phone] DAGAMR,ZIA ERT PATIENT MEDICARE (WNR) MEDICARE (M) PART A May 15, 2002 PART A [id number] DAGMAR,ZIA ERT PATIENT MEDICARE (WNR) MEDICARE (M) PART B May 15, 2002 PART B [id number] DAGMAR,ZIA ERT PATIENT MEDICARE (WNR) MEDICARE (M) PART A May 15, 2002 PART A [id number] DAGMAR,ZIA ERT PATIENT MEDICARE (WNR) MEDICARE (M) PART B May 15, 2002 PART B [id number] [phone] DAGMAR,ZIA ERT PATIENT MEDICARE (WNR) MEDICARE (M) PART A May 15, 2002 PART A [id number] DAGMAR,ZIA ERT PATIENT MEDICARE (WNR) MEDICARE (M) PART B May 15, 2002 PART B [id number] DAGMAR,ZIA ERT PATIENT MEDICARE (WNR) MEDICARE (M) PART A May 15, 2002 PART A [id number] DAGMAR,ZIA ERT PATIENT Selected Encounter This section includes the information on record at [place] for the Encounter. Date/Time Encounter Type Encounter Description Reason Pro vider Source Aug 31, 2023 02:34 PM Outpatient Encounter ADMIN PAT ACTIVTIES (MASNONCT) [...] 20 appointments. The data comes from all [place] treatment facilities. Appointment Date/Time Appointment Type Appointme nt Facility Name Sep 07, 2023 03:00 PM [facility]UL[facility] [place] Sep 15, 2023 11:00 AM [facility] [place] Sep 16, 2023 01:00 PM AM[facility]UL[facility]ORY [facility] [place] [facility] [place] [facility] Sep 18, 2023 10:30 AM AMBULATORY - REH[place] MEDICIN [place] Sep 23, 2023 01:00 PM [facility] [place] Sep 23, 2023 01:15 PM [facility] [place] [facility] Sep 30, 2023 03:00 PM [facility] [place] Sep 30, 2023 03:15 PM [facility] - [place]IC[place] Oct 13, 2023 01:00 PM AMBULATORY - MEDICINE [place] [facility] [place] [facility] October 16, 2023 01:00 PM [facility] [place] [facility] Dec 15, 2023 02:30 PM [facility] [place]IC[place] Dec 30, 2023 03:00 PM AMBULATORY - MEDICINE [place] [facility] [place] [facility] Mar 02, 2024 03:00 PM [facility]ORY - [place]IC[place] Lab Results: +/- 30 days of the encounter This section includes the Chemistry and Hematology Lab Results on record with [place] for the patient. Radiology Reports and Pathology Reports are provided separately, in subsequent sections. Lab Results This section contains the Chemistry/Hematology Results that were resulted 30 days before or 30 daysafter the date of the Encounter. Date/Time Source Result Type Result - Unit Interpretation Reference Range Comment Sep 23, 2023 01:35 PM [place] COVID-19 FLU/RSV DIAGNOSTIC PANEL Speci men Type: NASOPHARYNX Comment: This test is authorized for emergency use only. False negative results may occur if virus is present at levels below the analytical limit of detection.Nega tive results do not preclude SARS-CoV-2, influenza or RSV infection and should not be used as the sole basis for treatment or other patient management decisions.[facility] mone FLUVID: HCPs: https://www.fd a.gov/media/67 7110/download. Patients: https://www.Visualnet a.gov/media/2435/download Ordering Provider: CHATO ADHIKARI Report Released Date/Time: Sep 23, 2023 01:14 PM Reporting Lab: [address] [address] Performing Lab: [address] [address] COVID-19 PCR (FLUVID) NEGATIVE NEGATIVE FLU A PCR (FLUVID) NEGATIVE FLU B PCR (FLUVID) NEGATIVE RSV PCR (FLUVID) NEGATIVE Sep 16, 2023 01:56 PM [facility] HEMOGLOBIN A1C PANEL Specimen Type: BLOOD [...] 16, 2023 01:09 PM Reporting Lab: [address] [address] Performing Lab: [address] [address] HEMOGLOBIN A1C 6.8 H 4.0-5.6 Sep 16, 2023 01:56 PM [facility] BASIC METABOLIC PANEL (non-fasting) Specimen Type: SERUM No comment entered. Ordering Provider: NIK GILL Report Released Date/Time: Sep 16, 2023 01:09 PM Reporting Lab: [address] [address] Performing Lab: [address] [address] UREA NITROGEN 25 mg/dL 7-25 GLUCOSE 234 mg/dL H 65-100 SODIUM 140 mmol/L 135-145 POTASSIUM 5.0 mmol/L 3.5-5.0 CHLORIDE 106 mmol/L 100-110 CO2 23 meq/L 20-30 CREATININE, Serum 1.80 mg/dL H 0.50-1.40 eGFR(CKD-EPI 2020) 36 mL/min L >60 Sep 16, 2023 01:56 PM [facility] CBC Specimen Type: BLOOD No comment entered. Ordering Provider: NIK GILL Report Released Date/Time: Sep 16, 2023 01:09 PM Reporting Lab: [facility] [address] [facility] [address] Performing Lab: [facility] [address] [facility] [address] WBC 7.86 10*3/uL 4.50-11.00 RBC 4.28 10*6/uL [...] and tobacco- related health factors from the [place] facility where the Encounter took place. Current Smoking Status This section includes the most current smoking, or tobacco-related health factor, from the [place] facility where the Encounter took place. Date/Time Current Smoking Status Comment Facil ity Apr 15, 2022 01:00 PM VA-TOBACCO NEVER USED [facility] Radiology Reports: +/- 30 days of [...] the Encounter. The data comes from all [place] treatment facilities. Date/Time Radiology Report Provider Source Sep 24, 2023 03:11 PM CHEST (2 VIEWS): ORLY LEAVITT [id number] -1935 M Exm Date: SEP 24, 2023@15:11 Req Phys: CHATO ADHIKARI Loc: CWM/SO/SICK CALL GOVERNMENT AUDITOR (Req'g Loc Img Loc: [facility] 1 Service: Unknown (Case [id number] COMPLETE) CHEST (2 VIEWS) (RAD Detailed) CPT:76561 Reason for Study: wheezing, cough, SOB Clinical History: Covering resident, fellow, GOVERNMENT AUDITOR or attending: Chato Adhikari NP [place] Pager: [phone] Backup pager: History: Report Status: Verified Date Reported: SEP 24, 2023 Date Verified: SEP 24, 2023 Retail Center Receptionist E-Sig:/ES/LATRICE DUNBAR JR Report: Study: PA and [...] Primary Interpreting Staff: LATRICE DUNBAR JR, Radiologist (Retail Center Receptionist) /LATRICE BAGLEY JR [facility] Encounter Notes: All associated encounter notes This section contains the clinical notes associated to the Encounter. Date/Time Encounter Note(s) Provider Source Aug 31, 2023 02:34 PM ADMINISTRATIVE NOTE: LOCAL TITLE: CCC: SCHEDULING ADMINISTRATION STANDARD TITLE: ADMINISTRATIVE NOTE DATE OF NOTE: AUG 31, 2023@14:34:18 ENTRY DATE: AUG 31, 2023@14:34:18 AUTHOR: LEXX GAITAN COSIGNER: URGENCY: STATUS: COMPLETED CCC: SCHEDULING ADMINISTRATION Has ADDENDA Patient Demographics Patient Name: ORLY LEAVITT Patient Primary Phone: [phone] Patient Primary Address: [address] [place] [address] Patient : 1935 Patient Age: 88 Call Back Number: [phone] Caller/Recipient Relation to Patient: Self Administrative Administrative Note Reason: Other Administrative Note Comments: PT IS REQUESTING A CALL BACK TO DISCUSS THE STATUS OF PAPERWORK FAXED OVER REGARDING HIS HANDICAPPED PLATE, PLEASE REFER TO PRIOR NOTE DATED 08/05/2023. PT CAN BE REACHED AT ABOVE #. /radhames/ LEXX GAITAN VISN1 [facility] AMSA Signed: 08/31/2023 14:34 Receipt Acknowledged By: 09/01/2023 15:33 /es/ LENNOX PEARCE RN REGISTERED NURSE 09/02/2023 09:11 /es/ HOOD MIKE LPN LPN 09/01/2023 ADDENDUM STATUS: COMPLETED CONTATCED AND HE REPORTS THAT HIS FEET GO NUMB AFTER HE WALKS FOR A BIT, AND HE HAS TO SIT DOWN. HE IS ALSO REQUESTING [facility] CANE. [facility] /radhames/ HOOD MIKE LPN LPN Signed: 09/01/2023 14:26 LEXX GAITAN [facility]
--- OUTSIDE RECORDS SUMMARY | 2024-05-24 13:12 | XMS_ITS | Encounter Summary ---
Author Name [place] Address [address] [place] [address] Care Team Providers Care Slimer Name Role Phone MARGARITA FLOREZ Primary Care [...] Relationship to Policy Bejarano ALVA [place] [facility] Dec 13, 2013 [id number] DAGMAR,ZIA ERT PATIENT [place] MED[place] SUPPLEMEN [facility] November 06, 2007 [id number] DAGMAR,ZIA ERT [place] [facility] November 06, 2007 [id number] [phone] DAGMAR,ZIA ERT [place] [facility] November 06, 2007 [id number] DAGMAR,ZIA ERT PATIENT BCBS OF [facility] MEDICARE SUPPLEMEN [facility] Dec 13, 2013 [id number] [phone] DAGMAR,ZIA ERT PATIENT [place] SUPP[place]MEN [facility] AN/MX Dec 13, 2008 [id number] DAGMAR,ZIA ERT PATIENT MEDICARE (WNR) MEDICARE () PART B May 15, 2012 PART B [id number] DAGMAR,ZIA ERT PATIENT MEDICARE (WNR) MEDICARE () PART A May 15, 2002 PART A [id number] DAGMAR,ZIA ERT PATIENT MEDICARE (WNR) MEDICARE (M) PART B May 15, 2002 PART B [id number] DAGMAR,ZIA ERT PATIENT MEDICARE (WNR) MEDICARE () PART A May 15, 2002 PART A [id number] [phone] DAGMAR,ZIA ERT PATIENT MEDICARE (WNR) MEDICARE () PART B May 15, 2002 PART B [id number] [phone] DAGMAR,ZIA ERT PATIENT MEDICARE (WNR) MEDICARE () PART A May 15, 2002 PART A [id number] [phone] DAGMAR,ZIA ERT PATIENT MEDICARE (WNR) MEDICARE () PART B May 15, 2002 PART B [id number] [phone] DAGMAR,ZIA ERT PATIENT MEDICARE (WNR) MEDICARE () PART A May 15, 2002 PART A [id number] DAGMAR,ZIA ERT PATIENT Selected Encounter This section includes the information on record at [place] for the Encounter. Date/Time Encounter Type Encounter Description Reason Pro vider Source Sep 15, 2023 11:00 AM Outpatient Encounter PRIMARY CARE/MEDICINE IHE Encounter Template Text not used by [...] Appointment Type Appointme nt Facility Name Sep 16, 2023 01:00 PM AM[facility]ORY [facility] [place] [facility] Sep 18, 2023 10:30 AM AMBULATORY - REHAB MEDICIN E [place] Sep 23, 2023 01:00 PM [facility], [facility]23 01:15 [facility] Sep 30, 2023 03:00 PM [facility] 30, 2023 03:15 PM [facility] Oct 13, 2023 01:00 PM [facility]ICINE [facility] [place] [facility] October 16, 2023 01:00 PM AM[facility]ATORY - MEDICINE [facility] [place] [facility] Dec 15, 2023 02:30 PM [facility] Dec 30, 2023 03:00 PM AMBULATORY - MEDICINE [place] [facility] [place] [facility] Mar 02, 2024 03:00 PM [facility]ICINE [facility] Lab Results: +/- 30 days of [...] Range Comment Sep 23, 2023 01:35 PM [place] COVID-19 FLU/RSV DIAGNOSTIC PANEL Speci men Type: NASOPHARYNX Comment: This test is authorized for emergency use only. False negative results may occur if virus is present at levels below the analytical limit of detection.Nega tive results do not preclude SARS-CoV-2, influenza or RSV infection and should not be used as the sole basis for treatment or other patient management decisions.[facility] mone FLUVID: HCPs: https://www.fd a.gov/media/ 3878/download. Patients: https://www.InterviewBest a.gov/media/ 0900/download Ordering Provider: CHATO ADHIKARI Report Released Date/Time: Sep 23, 2023 01:14 PM Reporting Lab: [facility] [address] [address] Performing Lab: [facility] [address] [address] COVID-19 PCR (FLUVID) NEGATIVE NEGATIVE FLU A PCR (FLUVID) NEGATIVE FLU B PCR (FLUVID) NEGATIVE RSV PCR (FLUVID) NEGATIVE Sep 16, 2023 01:56 PM [facility] HEMOGLOBIN A1C PANEL Specimen Type: BLOOD [...] Sep 16, 2023 01:09 PM Reporting Lab: [address] [address] Performing Lab: [address] [address] HEMOGLOBIN A1C 6.8 H 4.0-5.6 Sep 16, 2023 01:56 PM [facility] BASIC METABOLIC PANEL (non-fasting) Specimen Type: SERUM No comment entered. Ordering Provider: NIK GILL Report Released Date/Time: Sep 16, 2023 01:09 PM Reporting Lab: [address] [address] Performing Lab: [address] [address] UREA NITROGEN 25 mg/dL 7-25 GLUCOSE 234 mg/dL H 65-100 SODIUM 140 mmol/L 135-145 POTASSIUM 5.0 mmol/L 3.5-5.0 CHLORIDE 106 mmol/L 100-110 CO2 23 meq/L 20-30 CREATININE, Serum 1.80 mg/dL H 0.50-1.40 eGFR(CKD-EPI 2020) 36 mL/min L >60 Sep 16, 2023 01:56 PM [facility] CBC Specimen Type: BLOOD No comment entered. Ordering Provider: NIK GILL Report Released Date/Time: Sep 16, 2023 01:09 PM Reporting Lab: [facility] [address] [address] Performing Lab: [facility] [address] [address] WBC 7.86 10*3/uL 4.50-11.00 RBC 4.28 10*6/uL [...] 15, 2022 01:00 PM VA-TOBACCO NEVER USED [facility] Radiology Reports: +/- 30 days of [...] the Encounter. The data comes from all [place] treatment facilities. 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 Date/Time Encounter Note(s) Provider Source Sep 15, 2023 11:23 AM PREVENTIVE MEDICIN E NURSING NOTE: LOCAL TITLE: CLINICAL REMINDERS/NURSING STANDARD TITLE: PREVENTIVE MEDICINE NURSING NOTE DATE OF NOTE: SEP 15, 2023@11:23 ENTRY DATE: SEP 15, 2023@11:23:38 AUTHOR: HOOD MIKE EXP COSIGNER: URGENCY: STATUS: COMPLETED RHS Screen: RHS Screen Environmental Check Upon inquiry, the individual reports that the environment is safe to proceed. Informed Consent to Screen and Document The individual consents to proceed with screening. The individual consents to documentation of responses. PRIMARY SCREEN: In the past 12 months, how often did a current or former intimate partner (e.g., boyfriend, girlfriend, , , sexual partner): 1. Scream or curse at you Never 2. Insult or talk down to you Never 3. Threaten you with harm Never 4. Physically hurt you Never 5. Force or pressure you to have sexual contact against your will, or when you were unable to say no Never ?? The HITS tool (items 1-4 above) is [place] copyright protected by Rodolfo Gonsales MD, and the user has full rights to use it throughout the [place] system. PRIMARY SCREEN RESULT: The Primary Screen is NEGATIVE. The individual answered never to all forms of IPV above (i.e., answered never to all 5 items) The individual accepts education and/or resources: No EDUCATION: The individual indicated readiness to learn. Education offered during this session as noted above. The individual indicated understanding by asking relevant questions and making appropriate comments. No barriers to learning were observed or identified. COVID VACCINE - WILL SCHEDULE WHEN READY FOOT CHECK - UPCOMING 09/30/2023 /radhames/ HOOD MIKE LPN LPN Signed: 09/15/2023 11:36 HOOD MIKE
--- OUTSIDE RECORDS SUMMARY | 2024-05-24 13:12 | XMS_ITS | Encounter Summary ---
Author Name [facility] [place] [facility] [place] [facility] [place] [facility] [place] Address [address] [place] [id number] Care Team Providers Care University Intern Name Role Phone MRAGARITA FLOREZ Primary Care Provide r Unavailable Insurance [...] Relationship to Policy Bejarano ALVA [place] [facility] Dec 13, 2013 [id number] [phone] DAGMAR,ZIA ERT [place]IENT [place] SUPPLEMEN [facility] November 06, 2007 [id number] DAGMAR,ZIA ERT PATIENT [place] MED[place]ARE SUPPLEMEN [facility] 2 November 06, 2007 [id number] [phone] DAGMAR,ZIA ERT PATIENT [place] SUPP[place] [facility] 2 November 06, 2007 [id number] DAGMAR,ZIA ERT PATIENT BCBS OF [facility] MEDICARE SUPPLEMEN [facility] Dec 13, 2013 [id number] DAGMAR,ZIA ERT PATIENT [place] SUPPLEMEN [facility]/ WHITM AN/MX Dec 13, 2008 [id number] [phone] DAGMAR,ZIA ERT PATIENT MEDICARE (WNR) MEDICARE () PART B May 15, 2012 PART B [id number] DAGMAR,ZIA ERT PATIENT MEDICARE (WNR) MEDICARE () PART A May 15, 2002 PART A [id number] DAGMAR,ZIA ERT PATIENT MEDICARE (WNR) MEDICARE () PART B May 15, 2002 PART B [id number] DAGMAR,ZIA ERT PATIENT MEDICARE (WNR) MEDICARE () PART A May 15, 2002 PART A [id number] [phone] DAGMAR,ZIA ERT PATIENT MEDICARE (WNR) MEDICARE () PART B May 15, 2002 PART B [id number] DAGMAR,IZA ERT PATIENT MEDICARE (WNR) MEDICARE () PART A May 15, 2002 PART A [id number] DAGMAR,ZIA ERT PATIENT MEDICARE (WNR) MEDICARE () PART B May 15, 2002 PART B [id number] DAGMAR,ZIA ERT PATIENT MEDICARE (WNR) MEDICARE () PART A May 15, 2002 PART A [id number] [phone] DAGMAR,ZIA ERT PATIENT Selected Encounter This section includes the information on record at [place] for the Encounter. Date/Time Encounter Type Encounter Description Reason Provider Source Sep 15, 2023 11:00 AM OFFICE O/P EST MOD 30 MIN PRIMARY CARE/MEDICINE ICD-10-CM E11.9 Type 2 diabetes mellitus without complications MARGARITA ACOSTA IHGrecia Encounter Template Text not used by [facility] Assessments - Encounter Diagnoses This section includes the primary and secondary diagnoses documented for the Encounter. 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 EMILIE SPAULDING,[facility] Oct 04, 2023 07:09 AM SECONDARY 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 [facility] Oct 04, 2023 07:09 AM SECONDARY Chronic kidney disease, stage 3 unspecified MATTI-IESHA SPAULDNIGFaustinoALEX [facility] Oct 04, 2023 07:09 AM SECONDARY Deficiency of other specified B group vitamins [facility] Oct 04, 2023 07:09 AM SECONDARY Diarrhea, unspecified LINADIN-BOSKO CHELLY,[facility] Oct 04, 2023 07:09 AM SECONDARY Essential (primary) hypertension MATTI-IESHA [facility]DINGFa[facility] Oct 04, 2023 07:09 AM SECONDARY Gastro-esophageal reflux disease without esophagitis EMILIE [facility] Oct 04, 2023 07:09 AM SECONDARY Hypomagnesemia MATTI-IESHA S[facility]ULDINGFaustinoFa[facility]ino[facility] Oct 04, 2023 07:09 AM SECONDARY Insomnia, unspecified SWATIAZDIN-BOSKO [facility] Oct 04, 2023 07:09 AM SECONDARY Malignant neoplasm of prostate MATTI-BOSSIMONE SPAULDINGFaustinoFa[facility]ino[facility] Oct 04, 2023 07:09 AM SECONDARY Mixed hyperlipidemia MATTI-BOSKO CHELLYFaustinoFa[facility]ino[facility] Oct 04, 2023 07:09 AM SECONDARY Obstructive sleep apnea (adult) (pediatric) MATTI-BOSKO [facility]LLYFaustinoFa[facility]ino[facility] Oct 04, 2023 07:09 AM SECONDARY Other specified peripheral vascular diseases MATTI-IESHA SPAULDINGFaustinoRANJEET Santillan [place] Oct 04, 2023 07:09 AM SECONDARY Type 2 diabetes mellitus with diabetic nephropathy MARGARITA DIAMOND [place] Oct 04, 2023 07:09 AM SECONDARY Type 2 diabetes mellitus with diabetic neuropathy, unsp SKIPSIMONE SPAULDINGMARGARITA Santillan [place] Plan of Treatment: Future Appointments (+ 6 months) and Future Tests (+/- 45 days) The Plan of Treatment section includes future care activities for the patient from all [place] [facility]. This section includes future appointments and future orders which are active, pending or scheduled. Future Appointments This section includes appointments that were scheduled to occur 6 months from the date of the Encounter, up to a maximum of 20 appointments. The data comes from all [place] treatment facilities. Appointment Date/Time Appointment Type Appointme nt Facility Name Sep 16, 2023 01:00 PM [facility] [place] [facility] [place] [facility] Sep 18, 2023 10:30 AM [facility] Sep 23, 2023 01:00 PM [facility] Sep 23, 2023 01:15 PM [facility] Sep 30, 2023 03:00 PM [facility] Sep 30, 2023 03:15 PM [facility] Oct 13, 2023 01:00 PM [place] [facility] [place] [facility] October 16, 2023 01[facility]00 PM [facility] [place] [facility] Dec 15, 2023 02:30 PM [facility] - MEDICINE [facility] Dec 30, 2023 03:00 PM [place] [facility] [facility] [place] [facility] Mar 02, 2024 03:00 PM AMBULATORY - MEDICINE [facility] Lab Results: +/- 30 days of the encounter This section includes the Chemistry and Hematology Lab Results on record with [place] for the patient. Radiology Reports and Pathology Reports are provided separately, in subsequent sections. Lab Results This section contains the Chemistry/Hematology Results that were resulted 30 days before or 30 daysafter the date of the Encounter. Date/Time Source Result Type Result - Unit Interpretation Reference Range Comment Sep 23, 2023 01:35 PM [place] COVID-19 FLU/RSV DIAGNOSTIC PANEL Speci men Type: NASOPHARYNX Comment: This test is authorized for emergency use only. False negative results may occur if virus is present at levels below the analytical limit of detection.Nega tive results do not preclude SARS-CoV-2, influenza or RSV infection and should not be used as the sole basis for treatment or other patient management decisions.[facility] mone FLUVID: HCPs: https://www.[employer] a.gov/media/ 069/download. Patients: https://www.[employer] a.gov/media/2435/download Ordering Provider: CHATO PURVIS Report Released Date/Time: Sep 23, 2023 01:14 PM Reporting Lab: [address] [address] Performing Lab: [address] [address] COVID-19 PCR (FLUVID) NEGATIVE NEGATIVE FLU A PCR (FLUVID) NEGATIVE FLU B PCR (FLUVID) NEGATIVE RSV PCR (FLUVID) NEGATIVE Sep 16, 2023 01:56 PM [facility] HEMOGLOBIN A1C PANEL Specimen Type: BLOOD Comment: [...] Sep 16, 2023 01:09 PM Reporting Lab: [address] [address] Performing Lab: [address] [address] HEMOGLOBIN A1C 6.8 H 4.0-5.6 Sep 16, 2023 01:56 PM [facility] BASIC METABOLIC PANEL (non-fasting) Specimen Type: SERUM No comment entered. Ordering Provider: NIK GILL Report Released Date/Time: Sep 16, 2023 01:09 PM Reporting Lab: [facility] [address] [facility] [address] Performing Lab: [facility] [address] [facility] [address] UREA NITROGEN 25 mg/dL 7-25 GLUCOSE 234 mg/dL H 65-100 SODIUM 140 mmol/L 135-145 POTASSIUM 5.0 mmol/L 3.5-5.0 CHLORIDE 106 mmol/L 100-110 CO2 23 meq/L 20-30 CREATININE, Serum 1.80 mg/dL H 0.50-1.40 eGFR(CKD-EPI 2020) 36 mL/min L >60 Sep 16, 2023 01:56 PM [facility] CBC Specimen Type: BLOOD No comment entered. Ordering Provider: NIK GILL Report Released Date/Time: Sep 16, 2023 01:09 PM Reporting Lab: [address] [address] Performing Lab: [address] [address] WBC 7.86 10*3/uL 4.50-11.00 RBC 4.28 10*6/uL 4.23-5.66 HGB 12.8 g/dL 12.8-17 HCT 39.0 L 39.2-50.4 MCV 91.1 fL 82-99 MCHC 32.8 g/dL 30.8-35.1 PLT 189 10*3/uL 140-360 RDW-CV 13.3 12.0-16.0 MCH 29.9 pg 26.2-32.6 Vital Signs: All taken on the encounter date This section contains inpatient and outpatient Vital Signs collected on the date of the Encounter. Date/Time Temperature Pulse Blood Pressure Respiratory Rate SP02 Pain Height Weight Body Mass Index Source Sep 15, 2023 11:21 AM 98.1 88 109/57 98 216.4 31 [place] Social History: Smoking Status (Most current) and Tobacco Use (All prior to encounter date) This section includes the most current, and the historical, smoking and tobacco- related health factors from the [place] facility where the Encounter took place. Current Smoking Status This section includes the most current smoking, or tobacco-related health factor, from the [place] facility where the Encounter took place. Date/Time Current Smoking Status Comment Jesus fall Apr 28, 2023 03:00 PM VA-TOBACCO NEVER USED [place] Tobacco Use History This section includes a history of the smoking, or tobacco-related health factors, that were collected on or before the date of the Encounter. The data comes from the [place] facility where the Encounter took place. Date/Time Smoking Status/Tobacco Use Comment F acility Apr 09, 2021 10:00 AM VA-TOBACCO NEVER USED [place] Mar 13, 2020 12:30 PM VA-TOBACCO NEVER USED [place] Feb 02, 2018 02:02 PM VA-TOBACCO NEVER USED [place] Mar 10, 2017 01:57 PM LIFETIME NON-TOBACCO USER [place] Feb 11, 2016 02:44 PM LIFETIME NON-TOBACCO USER [place] May 09, 2009 09:43 AM LIFETIME NON-TOBACCO USER [place] Radiology Reports: +/- 30 days of the [...] the Encounter. The data comes from all [facility] facilities. Date/Time Radiology Report Provider Source Sep 24, 2023 03:11 PM CHEST (2 VIEWS): ORLY LEAVITT [id number] -[phone] M Exm Date: SEP 24, 2023@15:11 Req Phys: CHATO PURVIS Loc: CWM/SO/SICK CALL PASSPORT APPLICATION EXAMINER (Req'g Loc Img Loc: [facility]/BUILDING 1 Service: Unknown (Case [id number] COMPLETE) CHEST (2 VIEWS) (RAD Detailed) CPT:73544 Reason for Study: wheezing, cough, SOB Clinical History: Covering resident, fellow, PASSPORT APPLICATION EXAMINER or attending: Chato Purvis NP [place] Pager: [phone] Backup pager: History: Report Status: Verified Date Reported: SEP 24, 2023 Date Verified: SEP 24, 2023 Rn Cardiology E-Sig:/ES/LATRICE DUNBAR JR Report: Study: PA and [...] Primary Interpreting Staff: LATRICE DUNBAR JR, Radiologist (Rn Cardiology) /EALATRICE DURHAM JR [place] [facility] Encounter Notes: All associated encounter notes This section contains the clinical notes associated to the Encounter. Date/Time Encounter Note(s) Provider Source Sep 15, 2023 11:00 AM PHYSICIAN NOTE: LOCAL TITLE: MD NOTE STANDARD TITLE: PHYSICIAN NOTE DATE OF NOTE: SEP 15, 2023@11:00 ENTRY DATE: SEP 15, 2023@00:12:47 AUTHOR: Melisa FLOREZ COSIGNER: URGENCY: STATUS: COMPLETED NOTE Has ADDENDA Pt is 88 y/o M with PMH of HTN, HL, DMT2, CAD s/p 6 stents, PVD, carotid art disease, DAMIEN, AAA, CKD3, GERD/Jenkins's, Prostate ca Last visit 04/[address] Barrientos in [facility]- closed PCP is [place] Other providers: --[facility] - [facility] 2023 RTC 3m --urology Dr Samaria Reed in [place] [phone]- last 11/2021 h/o prostate ca- latest PSA 0.15, testosterone 13 -->q4m->stop ADT (last dose 05/2020 q6m)--> last 07/2021 -plan to restart ADT if PSA increase --Cardiology Dr Flannery q6m- - endocrinology Dr. Rudolph--> [facility] - GI Dr. Valdez - stop screening CRC, Jenkins's (last 07/2022)RTC prn - [facility] Vascular surgery q6-12m-last 02/2023 Dr Gilbert - eye [place] - audiology [place] - podiatry [place] daughter Mindi [phone] pt brought a note written by his daughter Mindi with the updates since last visit #CKD3 pt was seen by renal Dr Starks lisinopril dc/d lasix decreased to 20mg daily started iron supplementation q2d #peripheral neuropathy feet numbness, tingling - unsteady gait - afraid to fall takes gabapentin 300hs would like to get a cane and a handicap sticker has new shoes for diabetic neuropathy SPEP/UPEP ordered bt renal #DM2 f/w CPP denies hypoglycemia, no readings <70 fasting 180s (eats snacks at night) due to CKD3 takes Metformin 500mg BID Semaglutide 1 mg Novolog 70/30 26 UNITS ac am and 22 units ac dinner Discontinued glipizide #no recent gout attacks on allopurinol #PVD seen by vascular surgery in February 2023 AAA stable continue with annual surveillance No significant carotid disease but needs follow-up Plan for R LE angio to confirm that 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 and he does not need a femoropopliteal bypass-as a potential complication of acute limb ischemia has passed #severe DAMIEN-Dx 2022 started on CPAP -- recently lazy to put CPAP back on after bathroom visit at 3-4am, but motivated to do better #CAD/HTN/HL BP at home normal <130/70 compliant with medications denies CP/SOB/LAROSE at baseline/palpitations/dizzine ss/claudication h/o stents x 6 h/o WA x2 had ECHO 01/2022 - mildly reduced LVEF, new wma since 2016 f/w cardiology Since last visit lisinopril discontinued by renal Lasix decreased to 20 mg daily PAST MEDICAL HISTORY: -- HTN -- HL -- DM2 -- CAD, h/o WA x2, s/p PCI stents x6 2005:PTCA 5 TaxusStents: LADx2 RCAx2 Prox RCA x1 09-20-06: Cypher Stent Presley rGeenberg MD: [phone] Dr Flannery -- Other dyspnea and respiratory abnormality 11-08-09: PFT: Normal -- DAMIEN severe 2022 HST-JOON of 40.9/h and SpO2 jose of 86.0%. -- CKD3 -- GERD - Jenkins's EGD 2018 Jenkins;s +, no dysplasia -repeat 2021 -- Abdominal aortic aneurysm 12-7-09: Distal AAA 3.2 cm 04/2018: Distal AAA 3.3 cm 01/2021: Distal AAA 3.4 cm 02/2023: Distal AAA 3.2 cm -- prostate cancer - on ADT (until 05/2020) annie 8 -- PVD -- Venous insufficiency of leg -- Vitamin B 12 Deficiency -- Gout -- LBP PAST SURGICAL HISTORY: -- 1957: 2 rt inguinal hernia repair/[place] -- 1958: Rt Inguinal Hernia Repair/ [facility] -- 1977: Left Inguinal Hernia Repair -- 1969: Lipoma Removal -- Tonsillectomy and Adenoidectomy (under age 14) -- 2019 umbilical hernia repair -- 2019 cholectstectomy ALLERGIES: COLCHICINE/PROBENECID-ANAPHYL AXIS MEDICATIONS: daughter prefills meds q14d -METOPROLOL SUCCINATE 100MG -LISINOPRIL 5MG -AMLODIPINE 5MG -FUROSEMIDE 20MG -OTC Non-VA ASPIRIN 81MG -CLOPIDOGREL 75MG -SIMVASTATIN 40MG -FENOFIBRATE 145MG TAB -OTC FISH OIL 2000MG (500MG DHA/EPA)BID -OMEPRAZOLE 20MG BID -NON VA Novolog 70/30 26 UNITS ac BREAKFAST, 22 units AC dinner -METFORMIN 500MG BID -SEMAGLUTIDE 1MG -ALLOPURINOL 100MG BID -OTC cacitrate/vit D -OTC CYANOCOBALAMIN 250 MCG -OTC folic acid 800mg -nonVA iron every 2 days 9arted 2023 by renal) -NIACIN (SLO-NIACIN) 750MG TAB,BID DICLOFENAC NA 1% TOP GEL -GABAPENTIN 300MG BEDTIME -MAGNESIUM OXIDE 420MG BID LUBRICATING (PF) OPH OINT APPLY OTC BEnefiber - daily FAMILY HISTORY: --DM:no --Cancer:mother colon cancer --WA:FAM HX-ISCHEM HEART DIS--twin brother: CABG and valve surgery --CVA: no --Mental Health/addiction: --Other: SOCIAL HISTORY: --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 --Cohabitation: , 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 --Children:2 children, very supportive --Diet: low fat/low salt --Exercise: walking around mall for 1 h daily + stationary bike 30 m q3d --Caffeine: 2 cups daily --EtOH:Rare --Tob: Never Smoked --MJ: denies --Illicits:denies --Eye: UTD --Dental: good dentition/q3m --Hospitalizations: 10/2019 cholecystectomy/hernia ROS: Constitutional: no fever/no chills, no ns Eyes: no decreased vision/blurry vision Ears/Nose/Throat: no hearing change Respiratory: no cough/wheezing/SOB Cardiovascular: no CP /palpitations/le edema Gastrointestinal: no abdominal pain/bloody/black stools/n/v/c/d :no dysuria/hematuria/trouble voiding MSK: no joint pain/myalgia Neuro: no dizziness/H/A Skin: no pruritus/rash - unsteady gait, no falls, would like to get a cane and disabled parking sticker PHYSICAL EXAM: Vital Signs: Blood Pressure: 109/57 (09/15/2023 11:21) 122/72 (04/28/2023 15:18) 112/72 (11/04/2022 14:35) 93/51 (04/15/2022 13:37)--> repeat manual 120/70 117/75 (10/15/2021 14:15) 124/74 (04/09/2021 10:02) Pulse: 88 (09/15/2023 11:21) Respiration:16 Temperature: 98.1 F [36.7 C] (09/15/2023 11:21) Weight: BMI 32 09/15/2023 11:21 216.4 lb [98.16 kg] 04/28/2023 15:18 222.4 lb [100.88 kg] 11/04/2022 14:35 222.8 lb [101.06 kg] 04/15/2022 13:37 220.4 lb [99.97 kg] 10/15/2021 14:15 214 lb [97.07 kg] 04/09/2021 10:02 213.8 lb [97.2 kg] 03/23/2018 12:56 209(94.80)[30*] GA: NAD, AOx3 neck supple. no LAD Normal chest RRR, RUSB murmur 06/20 CTA b/l abd: benign, NT/ND LE:no edema, DP diminished, diminished protective sensation by MF 09/22 LABORATORY: --05/2023 --- SERUM May 27 May 08 Apr 20 Reference 2022 2022 2022 GLUCOSE 179 H 174 H 175 H mg/dL 65 - 100 BUN 32 H 29 H 29 H mg/dL 7 - 25 CREATININE 1.67 H 1.80 H 1.87 H mg/dL .5 - 1.4 Sodium 136 141 139 mmol/L 135 - 145 K+/Pot 4.7 4.6 4.3 mmol/L 3.5 - 5 CL 100 106 106 mmol/L 100 - 110 CO2 25 26 24 mEq/L 20 - 30 SERUM May 08 Apr 20 October 16 Apr 08 Reference 2022 2022 2022 2021 T. PROT 7.1 7.0 7.0 g/dL 6 - 8.3 ALBUMIN 3.8 3.7 3.8 g/dL 3.5 - 5 T BILI 0.4 0.4 0.7 mg/dL .2 - 1.2 AST 27 30 37 H U/L 5 - 34 ALT 24 28 36 U/L <6 - 55 ALK JACKIE 27 L 31 L 33 L U/L 40 - 150 MAG 1.7 1.2 L mg/dL 1.6 - 2.6 #01/2022 ECHO LA is mildly dilated LV size is at the upper limit of normal, with normal LV wall thickness There is dyskinesis of the ventricular septum There is akinesis of the basal and mid inferior wall Overall LVEF was difficult due to frequent PVCs however the overall LV systolic function appears to be at least mildly reduced There is no evidence of LV thrombus Grade 1, mild diastolic dysfunction with impaired LV relaxation There is no aortic stenosis or insufficiency Aortic valve moderately calcified Comparison made to the study of March 2017 new wall motion abnormality since previous study ASSESSMENT/PLAN: Pt is 88 y/o M with PMH of HTN, HL, DMT2, CAD s/p 6 stents, PVD, carotid art disease, AAA, CKD3, Prostate ca #IDDM2: well controlled , A1c 7.3 -f/w diabetes clinic novolog gabby 70/30, 26 units ac BREAKFAST AND 22 night METFORMIN HCL 500mg BID SEMAGLUTIDE 1MG q1w Discontinued glipizide -eye: 09/2022 Type 2 Diabetes mellitus without retinopathy or CSME -feet: f/w podiatry - dimished PP, sensation #periheral neuropathy: -f/w podiatry, diabetic shoes, will place referral to PT for a cane, fall prevention reviewed with pt -RMV form completed for permanent handicap placard -gabapentin hs #HTN: well controlled Non-VA METOPROLOL SUCCINATE 100MG Non-VA AMLODIPINE 5MG Non-VA FUROSEMIDE 20MG #HL: Well-controlled LDL 44- on statin/fibrate for secondary prevention #CAD s/p PCI stents x6 HFrEF (ECHO 01/2022), normotensive, euvolemic today -f/w non VA cardiology -on DAPT, statin/fibrate, BB, diuretic, amlodipine #CKD3: GFR 40, ACR nl, ACEi dc/d by renal 2023 -avoid nephrotoxic agents -DM/HTN control -f/w non VA renal #iron supplementation -started 2023 by renal q2d #hypomagnesemia normalized with supplementation - take every second day magnesium. Check level #DAMIEN SEVERE Dx 11/2022 HST JOON of 40.9 events per hour and SpO2 jose of 86.0%. -Started on CPAP encourage regular use, consequences of untreated obstructive sleep apnea reviewed with patient #carotid art disease 02/2023 US: <50% b/l- Asx -> no indication for follow-up #PVD MARILUZ R 0.66 L 0.62 -claudication stable # Abdominal aortic aneurysm -stable 02/2023 3.2 cm AAA -f/w non VA vascular surgery q6m for surveillance #h/o prostate cancer off of ADT since 05/2020 -f/w non VA urology #bone health: pt was on ADT #Osteopenia to continue with vitamin D and calcium 05/2021 DEXA LS T -1.4, femoral neck left T- 0.9, total hip left T- 0.9 #GERD, Jenkins's: last EGD 07/2022 Jenkins's+ no dysplasia - dc/d screening asympotomatic -on PPI daily #diarrhea -resolved with benefiber #Gout: well controlled on PPX- last attack years ago Non-VA ALLOPURINOL 200MG #vit B def -c/w supplementation B12 #insomnia: -gabapentin 300mg hs Healthcare maintenance: --Lipids: LDL 44 (04/2023) --Diabetes: A1c 7.3 (04/2023) --Colon CA (50-75): stopped screening/age 2009: Colonoscopy: Polypectomy 05/2019 colonoscopy --> few benign appearing diminutive polyps in rectum-> stop screening due to age Dr. Valdez [facility]. --Lung CA: n/a --PSA h/o negative developer - f/w urology --AAA (smoker/65): annual f/u with vasc surgery 02/2023 3.2 cm AAA --Influenza (yrly): 2022 --COVID 2020 x2 --PCV13 2015 --PCV23: 2009 --HZV (>60yrs, x1): 2013 --RZV (>50yrs, x2): --TDAP: 2020 --Hep C screen: --HIV screen: --DEXA: 05/2021 OSTEOPENIA --Advanced Directives: Return to clinic to see me in _6__ months, sooner PRN. Virtual ( ), F2F ( x) (x )non fasting labs order prior to f/u + B12, TSH , Mg ( X)request records from outside providers -cardiology, renal , vascular surgery -last note (request week prior to next visit) PAVE Foot Check: A complete foot check was completed at this encounter. VISUAL INSPECTION: Includes inspection for skin breaks, deformity, erythema, trauma, pallor on elevation, dependent rubor, nail deformities, extensive callus and pitting edema. Visual exam results: Abnormal Observations: Thickened toenails PEDAL PULSES: Includes palpation of dorsalis and posterior tibial pulses and signs/symptoms of vascular compromise like pain, pallor, parasthesia or paralysis. Present (even if diminished) SENSORY CHECK: Includes 10 gram Monofilament ([place]) test of sensation. Intact (Greater than or equal to 80% of sites checked) Abnormal (Less than 80% of sites checked): Abnormal (decreased or absent sensation to monofilament): Comment: 09/22 HIGH-RISK HIGH RISK FOOT EDUCATION: 1. Advised patient that extra depth footwear with soft molded inserts and braces may be required. 2. Advised patient not to walk barefoot. Instructed the patient to pay close attention to the style and fit of shoes. 3. Explained the importance of daily foot checks. Explained that loss of sensation leads to callouses. Callouses break down, which result in ulcers that may lead to gangrene and amputation. 4. Stressed the importance of daily foot hygiene. Warm (not hot) bathing of the feet, complete drying and thorough inspection for changes in the condition of the skin constitute daily foot care. Demonstrated how to do a thorough foot check. 5. Emphasized the use of clean, non-restrictive socks/stockings and well fitting shoes. 6. Stressed the importance of immediate follow-up of any foot injuries or ulcers. Explained that he/she should be non-weight bearing whenever there are lesions on the foot, to prevent cellular damage. Level of Understanding: Good Patient is established patient of Podiatry and/or Vascular Date last seen: 06/2023 Medication Reconciliation: Outpatient: Has the patient been taking medications as documented in the EMLR? No: Discrepencies were identified. See below. Essential Medication List for Review used to complete this medication reconciliation. INCLUDED IN THIS LIST: Alphabetical list of active outpatient prescriptions dispensed from this [facility] (local) and dispensed from another [place] or DoD facility (remote) as well as inpatient orders (local, pending and active), local clinic medications, locally documented non-VA medications, and local prescriptions that have or been discontinued in the past 90 days. - Discrepancies were identified, addressed, and discussed with the patient/caregiver at this encounter. - All changes in medications, including all non-VA/Herbal/OTC medications were entered into CPRS. Changes: cahrt updated - If there were any medications the patient should no longer take, they were discontinued. - The patient/caregiver was instructed to update this list, discard old lists, and take this list to the next appointment, whether with a VA or non-VA provider. /radhames/ MARGARITA FLOREZ MD PHYSICIAN Signed: 09/15/2023 13:00 Receipt Acknowledged By: 09/15/2023 13:14 /radhames/ RAISSA SOTO 12/01/2023 ADDENDUM STATUS: COMPLETED Cardiology note received, sent to scanning /radhames/ Nellie Jauregui RN Registered Nurse (RN) Signed: 12/01/2023 20:39 MERY FLOREZ [place]
--- OUTSIDE RECORDS SUMMARY | 2024-05-24 13:12 | XMS_ITS | Encounter Summary ---
Author Name [facility] [place] Organization [place] Address [address] [place] [address] Care Team Providers Care Caustic Liquor Maker Name Role Phone MARGARITA FLOREZ Primary Care [...] Relationship to Policy Bejarano ALVA [place] [facility] [place] [facility] Dec 13, 2013 [id number] [phone] DAGMAR,ZIA ERT PATIENT BCBS [place] MEDICARE SUPPLEMEN [facility] November 06, 2007 [id number] [phone] DAGMAR,ZIA ERT PATIENT [place]BS [place] MED[place] SUPPLEMEN [facility] 2 November 06, 2007 [id number] DAGMAR,ZIA ERT PAT[place] [facility] 2 November 06, 2007 [id number] [phone] DAGMAR,ZIA ERT PATIENT BCBS OF [facility] MEDICARE SUPPLEMEN [facility] Dec 13, 2013 [id number] DAGMAR,ZIA ERT PATIENT [place]MEN [facility] MMHG/ WHITM AN/MX Dec 13, 2008 [id number] [phone] DAGMAR,ZIA ERT PATIENT MEDICARE (WNR) MEDICARE () PART B May 15, 2012 PART B [id number] [phone] DAGMAR,ZIA ERT PATIENT MEDICARE (WNR) MEDICARE () PART A May 15, 2002 PART A [id number] DAGMAR,ZIA ERT PATIENT MEDICARE (WNR) MEDICARE (M) PART B May 15, 2002 PART B [id number] [phone] DAGMAR,ZIA ERT PATIENT MEDICARE (WNR) MEDICARE () PART A May 15, 2002 PART A [id number] [phone] DAGMAR,ZIA ERT PATIENT MEDICARE (WNR) MEDICARE () PART B May 15, 2002 PART B [id number] DAGMAR,ZIA ERT PATIENT MEDICARE (WNR) MEDICARE () PART B May 15, 2002 PART B [id number] DAGMAR,ZIA ERT PATIENT MEDICARE (WNR) MEDICARE () PART A May 15, 2002 PART A [id number] [phone] DAGMAR,ZIA ERT PATIENT MEDICARE (WNR) MEDICARE () PART A May 15, 2002 PART A [id number] [phone] DAGMAR,ZIA ERT PATIENT Selected Encounter This section includes the information on record at [place] for the Encounter. Date/Time Encounter Type Encounter Description Reason Pro vider Source Sep 10, 2023 08:43 AM Outpatient Encounter AUDIOLOGY IHE Encounter Template Text not used by [...] 20 appointments. The data comes from all [place] treatment facilities. Appointment Date/Time Appointment Type Appointme nt Facility Name Sep 15, 2023 11:00 AM [facility]UL[facility]ORY - [facility]IC[place] [place] Sep 16, 2023 01:00 PM [facility] [place] [facility] Sep 18, 2023 10:30 AM AMBULATORY - [facility] [place] Sep 23, 2023 01:00 PM [facility] [place] [facility] [place] Sep 23, 2023 01:15 PM [facility] [place] [place] Sep 30, 2023 03:00 PM [facility] [place] [place] Sep 30, 2023 03:15 PM [facility] [place] [place] Oct 13, 2023 01:00 PM AMBULATORY - MEDICINE [facility] [facility] October 16, 2023 01:00 PM AMBULATORY - MEDICINE [facility] [place] [facility] Dec 15, 2023 02:30 [facility] Dec [facility], 2023 03:00 PM [facility] - MEDICINE [place] [facility] [place] [facility] Mar 02, 2024 03:00 PM [facility] Lab Results: +/- 30 days of the encounter This section includes the Chemistry and Hematology Lab Results on record with [place] for the patient. Radiology Reports and Pathology Reports are provided separately, in subsequent sections. Lab Results This section contains the Chemistry/Hematology Results that were resulted 30 days before or 30 daysafter the date of the Encounter. Date/Time Source Result Type Result - Unit Interpretation Reference Range Comment Sep 23, 2023 01:35 PM [place] COVID-19 FLU/RSV DIAGNOSTIC PANEL Speci men Type: NASOPHARYNX Comment: This test is authorized for emergency use only. False negative results may occur if virus is present at levels below the analytical limit of detection.Nega tive results do not preclude SARS-CoV-2, influenza or RSV infection and should not be used as the sole basis for treatment or other patient management decisions.[facility] mone FLUVID: HCPs: https://www.fd a.gov/media/ 5075/download. Patients: https://www.BridgeLux a.gov/media/ 8407/download Ordering Provider: CHATO ADHIKARI Report Released Date/Time: Sep 23, 2023 01:14 PM Reporting Lab: [address] [address] Performing Lab: [address] [address] COVID-19 PCR (FLUVID) NEGATIVE NEGATIVE FLU A PCR (FLUVID) NEGATIVE FLU B PCR (FLUVID) NEGATIVE RSV PCR (FLUVID) NEGATIVE Sep 16, 2023 01:56 PM [facility] HEMOGLOBIN A1C PANEL Specimen Type: BLOOD [...] Sep 16, 2023 01:09 PM Reporting Lab: [address] [address] Performing Lab: [address] [address] HEMOGLOBIN A1C 6.8 H 4.0-5.6 Sep 16, 2023 01:56 PM [facility] BASIC METABOLIC PANEL (non-fasting) Specimen Type: SERUM No comment entered. Ordering Provider: NIK GILL Report Released Date/Time: Sep 16, 2023 01:09 PM Reporting Lab: [address] [address] Performing Lab: [address] [address] UREA NITROGEN 25 mg/dL 7-25 GLUCOSE 234 mg/dL H 65-100 SODIUM 140 mmol/L 135-145 POTASSIUM 5.0 mmol/L 3.5-5.0 CHLORIDE 106 mmol/L 100-110 CO2 23 meq/L 20-30 CREATININE, Serum 1.80 mg/dL H 0.50-1.40 eGFR(CKD-EPI 2020) 36 mL/min L >60 Sep 16, 2023 01:56 PM [facility] CBC Specimen Type: BLOOD No comment entered. Ordering Provider: NIK GILL Report Released Date/Time: Sep 16, 2023 01:09 PM Reporting Lab: [facility] [address] [address] Performing Lab: [facility] [address] [address] WBC 7.86 10*3/uL 4.50-11.00 RBC 4.28 10*6/uL [...] and tobacco- related health factors from the [place] facility where the Encounter took place. Current Smoking Status This section includes the most current smoking, or tobacco-related health factor, from the [place] facility where the Encounter took place. Date/Time Current Smoking Status Comment Jesus fall Apr 15, 2022 01:00 PM VA-TOBACCO NEVER USED [facility] Radiology Reports: +/- 30 days of [...] the Encounter. The data comes from all [place] treatment facilities. Date/Time Radiology Report Provider Source Sep 24, 2023 03:11 PM CHEST (2 VIEWS): ORLY LEAVITT [id number] -[id number] M Exm Date: SEP 24, 2023@15:11 Req Phys: CHATO ADHIKARI Loc: CWM/SO/SICK CALL CHICKEN HANGER (Req'g Loc Img Loc: [facility]BUILDING 1 Service: Unknown (Case [id number] COMPLETE) CHEST (2 VIEWS) (RAD Detailed) CPT:28861 Reason for Study: wheezing, cough, SOB Clinical History: Covering resident, fellow, CHICKEN HANGER or attending: Chato Adhikari NP [place] Pager: [phone] Backup pager: History: Report Status: Verified Date Reported: SEP 24, 2023 Date Verified: SEP 24, 2023 Vice President Quality Assurance E-Sig:/RADHAMES/LATRICE DUNBAR JR Report: Study: PA and lateral [...] Primary Interpreting Staff: LATRICE DUNBAR JR, Radiologist (Vice President Quality Assurance) /LATRICE BAGLEY JR [facility] Encounter Notes: All associated encounter notes This section contains the clinical notes associated to the Encounter. Date/Time Encounter Note(s) Provider Source Sep 10, 2023 08:43 AM PRIMARY CARE TELEP JESSICA ENCOUNTER NOTE: LOCAL TITLE: TELEPHONE NOTE/PRIMARY CARE STANDARD TITLE: PRIMARY CARE TELEPHONE ENCOUNTER NOTE DATE OF NOTE: SEP 10, 2023@08:43 ENTRY DATE: SEP 10, 2023@08:43:29 AUTHOR: JES PALMER COSIGNER: URGENCY: STATUS: COMPLETED Lamination Inspector called [place] regarding setting up an appointment for his Compensation and Pension Exam. Lamination Inspector made the following contact attempts: 1) 09/06 @ 1339 (Left Message) 2) 09/08 @ 1007 (Left Message) 3) 09/09 @ 0842 (Left Message) Lamination Inspector will continue to try and get ahold of the [place] to set up an appointment. /radhames/ JES PALMER ADVANCED UTILITY SALES AND SERVICE MANAGER Signed: 09/10/2023 08:45 JES PALMER [facility]
--- OUTSIDE RECORDS SUMMARY | 2024-05-24 13:12 | XMS_ITS | Encounter Summary ---
Author Name [facility] [place] Organization [place] Address [address] [place] [address] Care Team Providers Care Media Sales Consultant Name Role Phone MARGARITA FLOREZ Primary Care [...] Policy Bejarano ALVA [place] OF [place] [facility] Dec 13, 2013 [id number] DAGMAR,ZIA ERT PATIENT [place]BS [place] MEDICARE SUPPLEMEN [facility] November 06, 2007 [id number] DAGMAR,ZIA ERT PATIENT [place] SUPP[place] [facility] MEDEX 2 November 06, 2007 [id number] DAGMAR,ZIA ERT PAT[place] [facility]EX 2 November 06, 2007 [id number] [phone] DAGMAR,ZIA ERT PATIENT BCBS OF [facility] MEDICARE SUPPLEMEN [facility] Dec 13, 2013 [id number] DAGMAR,ZIA ERT PATIENT [place] SUPP[place]MEN [facility] MMHG/ WHITM AN/MX Dec 13, 2008 [id number] [phone] DAGMAR,ZIA ERT PATIENT MEDICARE (WNR) MEDICARE () PART B May 15, 2012 PART B [id number] [phone] DAGMAR,ZIA ERT PATIENT MEDICARE (WNR) MEDICARE () PART A May 15, 2002 PART A [id number] DAGMAR,ZIA ERT PATIENT MEDICARE (WNR) MEDICARE (M) PART B May 15, 2002 PART B [id number] DAGMAR,ZIA ERT PATIENT MEDICARE (WNR) MEDICARE () PART A May 15, 2002 PART A [id number] DAGMAR,ZIA ERT PATIENT MEDICARE (WNR) MEDICARE () PART B May 15, 2002 PART B [id number] DAGMAR,ZIA ERT PATIENT MEDICARE (WNR) MEDICARE () PART A May 15, 2002 PART A [id number] DAGMAR,ZIA ERT PATIENT MEDICARE (WNR) MEDICARE () PART B May 15, 2002 PART B [id number] [phone] DAGMAR,ZIA ERT PATIENT MEDICARE (WNR) MEDICARE () PART A May 15, 2002 PART A [id number] DAGMAR,ZIA ERT PATIENT Selected Encounter This section includes the information on record at [place] for the Encounter. Date/Time Encounter Type Encounter Description Reason Pro vider Source Sep 17, 2023 03:19 PM Outpatient Encounter CLINICAL PHARMACY IHE Encounter [...] Appointment Type Appointme nt Facility Name Sep 18, 2023 10:30 AM AMBULATORY - [facility] [place] Sep 23, 2023 01:00 PM [facility] 23, 2023 01:15 PM [facility] [place] [place] Sep 30, 2023 03:00 PM [facility] Sep 30, 2023 03:15 PM [facility] [place] Oct 13, 2023 01:00 PM AM[facility]UL[facility]ORY [place] [place] [facility] October 16, 2023 01:00 PM AMBULATORY - MEDICINE [place] [facility] [place] [facility] Dec 15, 2023 02:30 PM [facility] Dec 30, 2023 03:00 PM AMBULATORY - MEDICINE [place] [facility] [place] [place] [facility] Mar 02, 2024 03:00 PM [facility] Lab Results: +/- 30 days [...] Range Comment Sep 23, 2023 01:35 PM [place] COVID-19 FLU/RSV DIAGNOSTIC PANEL Speci men Type: NASOPHARYNX Comment: This test is authorized for emergency use only. False negative results may occur if virus is present at levels below the analytical limit of detection.Nega tive results do not preclude SARS-CoV-2, influenza or RSV infection and should not be used as the sole basis for treatment or other patient management decisions.[facility] mone FLUVID: HCPs: https://www.fd a.gov/media/ 3202/download. Patients: https://www.Hycrete a.gov/media/ 876/download Ordering Provider: SAMREEN ADHIKARI Report Released Date/Time: Sep 23, 2023 01:14 PM Reporting Lab: [facility] [place] [address] [address] Performing Lab: [place] [address] [address] COVID-19 PCR (FLUVID) NEGATIVE NEGATIVE FLU A PCR (FLUVID) NEGATIVE FLU B PCR (FLUVID) NEGATIVE RSV PCR (FLUVID) NEGATIVE Sep 16, 2023 01:56 PM [facility] HEMOGLOBIN A1C PANEL Specimen Type: BLOOD [...] Sep 16, 2023 01:09 PM Reporting Lab: [address] [address] Performing Lab: [address] [address] HEMOGLOBIN A1C 6.8 H 4.0-5.6 Sep 16, 2023 01:56 PM [facility] BASIC METABOLIC PANEL (non-fasting) Specimen Type: SERUM No comment entered. Ordering Provider: NIK GILL Report Released Date/Time: Sep 16, 2023 01:09 PM Reporting Lab: [address] [address] Performing Lab: [address] [address] UREA NITROGEN 25 mg/dL 7-25 GLUCOSE 234 mg/dL H 65-100 SODIUM 140 mmol/L 135-145 POTASSIUM 5.0 mmol/L 3.5-5.0 CHLORIDE 106 mmol/L 100-110 CO2 23 meq/L 20-30 CREATININE, Serum 1.80 mg/dL H 0.50-1.40 eGFR(CKD-EPI 2020) 36 mL/min L >60 Sep 16, 2023 01:56 PM [facility] CBC Specimen Type: BLOOD No comment entered. Ordering Provider: NIK GILL Report Released Date/Time: Sep 16, 2023 01:09 PM Reporting Lab: [facility] [address] [address] Performing Lab: [facility] [address] [address] WBC 7.86 10*3/uL 4.50-11.00 RBC 4.28 10*6/uL [...] 15, 2022 01:00 PM VA-TOBACCO NEVER USED [facility] Radiology Reports: +/- 30 days of [...] the Encounter. The data comes from all [place] treatment facilities. Date/Time Radiology Report Provider Source Sep 24, 2023 03:11 PM CHEST (2 VIEWS): ORLY LEAVITT [id number] -[id number] M Ex Date: SEP 24, 2023@15:11 Req Phys: SAMREEN ADHIKARI Loc: CWM/SO/SICK CALL TELEPHONIC CASE MANAGER (Req'g Loc Img Loc: [facility]/BUILDING 1 Service: Unknown (Case [id number] COMPLETE) CHEST (2 VIEWS) (RAD Detailed) CPT:87370 Reason for Study: wheezing, cough, SOB Clinical History: Covering resident, fellow, TELEPHONIC CASE MANAGER or attending: Samreen Adhikari NP [place] Pager: [phone] Backup pager: History: Report Status: Verified Date Reported: SEP 24, 2023 Date Verified: SEP 24, 2023 Special Projects Manager E-Sig:/ES/LATRICE DNUBAR JR Report: Study: PA and lateral chest [...] Primary Interpreting Staff: LATRICE DUNBAR JR, Radiologist (Special Projects Manager) /LATRICE BAGLEY JR [place] [facility] Encounter Notes: All associated encounter notes This section contains the clinical notes associated to the Encounter. Date/Time Encounter Note(s) Provider Source Sep 17, 2023 03:19 PM DIABETOLOGY NOTE: LOCAL TITLE: INSULIN PUMP/CGM DOWNLOAD (T) STANDARD TITLE: DIABETOLOGY NOTE DATE OF NOTE: SEP 17, 2023@15:19 ENTRY DATE: SEP 17, 2023@15:19:55 AUTHOR: TARUN GILL EXP COSIGNER: URGENCY: STATUS: COMPLETED Please select: Personal Continuous Glucose Monitor- DEXCOM G7 Date of Documentation:Sep Please see attached scanned document in [employer]. /radhames/ TARUN GILL CLINICAL SHOP FITTER Signed: 09/17/2023 15:20 TARUN GILL [place]
--- OUTSIDE RECORDS SUMMARY | 2024-05-24 13:12 | XMS_ITS | Encounter Summary ---
Author Name [facility] [facility] [place] Address [address] [place] [id number] Care Team Providers Care Cognos Administrator Name Role Phone MARGARITA FLOREZ Primary Care [...] Policy [place]jar[place] [facility] Dec 13, 2013 [id number] DAGMAR,ZIA ERT PATIENT [place] MED[place] SUPPLEMEN [facility] November 06, 2007 [id number] [phone] DAGMAR,ZIA ERT PATIENT [place] MED[place]ARE SUPPLEMEN [facility] 2 November 06, 2007 [id number] DAGMAR,ZIA ERT [place] SUPP[place]MEN [facility] 2 November 06, 2007 [id number] DAGMAR,ZIA ERT PATIENT BCBS OF [facility] MEDICARE SUPPLEMEN [facility] Dec 13, 2013 [id number] DAGMAR,ZIA ERT PATIENT [place] SUPPLEMEN [facility]/ [facility]M AN/MX Dec 13, 2008 [id number] [phone] DAGMAR,ZIA ERT PATIENT MEDICARE (WNR) MEDICARE () PART B May 15, 2012 PART B [id number] [phone] DAGMAR,ZIA ERT PATIENT MEDICARE (WNR) MEDICARE () PART A May 15, 2002 PART A [id number] DAGMAR,ZIA ERT PATIENT MEDICARE (WNR) MEDICARE () PART B May 15, 2002 PART B [id number] DAGMAR,ZIA ERT PATIENT MEDICARE (WNR) MEDICARE () PART A May 15, 2002 PART A [id number] [phone] DAGMAR,ZIA ERT PATIENT MEDICARE (WNR) MEDICARE () PART B May 15, 2002 PART B [id number] DAGMAR,ZIA ERT PATIENT MEDICARE (WNR) MEDICARE () PART B May 15, 2002 PART B [id number] DAGMAR,ZIA ERT PATIENT MEDICARE ([place]NR) MEDICARE () PART A May 15, 2002 PART A [id number] DAGMAR,ZIA ERT PATIENT MEDICARE ([place]NR) MEDICARE () PART A May 15, 2002 PART A [id number] DAGMAR,ZIA ERT PATIENT Selected Encounter This section includes the information on record at [place] for the Encounter. Date/Time Encounter Type Encounter Description Reason Provider Source Sep 16, 2023 01:00 PM MTMS BY PHARM ADDL 15 MIN CLINICAL PHARMACY ICD-10-CM E11.8 Type 2 diabetes mellitus with unspecified complications TAMMY GILL [place] Encounter Template Text not used by [place] Assessments - Encounter Diagnoses This section includes the primary and secondary diagnoses documented for the Encounter. Date/Time Primary/Secondary Diagnosis Diagnosis Name Provider Source Sep 17, 2023 03:18 PM PRIMARY Type 2 diabetes mellitus with unspecified complications NIK GILL [facility] Plan of Treatment: Future Appointments (+ 6 months) and Future Tests (+/- 45 days) The Plan of Treatment section includes future care activities for the patient [facility] [place] [facility] This section includes future appointments and future orders which are active, pending or scheduled. Future Appointments This section includes appointments that were scheduled to occur 6 months from the date of the Encounter, up to a maximum of 20 appointments. The data comes from all [place] treatment facilities. Appointment Date/Time Appointment Type Appointme nt Facility Name Sep 18, 2023 10:30 AM AMBULATORY - REH[facility] MEDIC[facility] Sep 23, 2023 01:00 PM [facility] Sep 23, 2023 01:15 PM [facility] - [facility] Sep 30, 2023 03:00 PM [facility] - [facility] Sep 30, 2023 03:15 PM [facility]ORY - MEDICINE [facility] Oct 13, 2023 01:00 PM [place] [facility] [place] [facility] October 16, 2023 01:00 PM [place] [facility] [place] [facility] Dec 15, 2023 02:30 PM [facility] Dec 30, 2023 03:00 PM [place] [facility] [place] [facility] Mar 02, 2024 03:00 PM [facility]ULATORY - [facility] Lab Results: +/- 30 days of the encounter This section includes the Chemistry and Hematology Lab Results on record with [place] for the patient. Radiology Reports and Pathology Reports are provided separately, in subsequent sections. Lab Results This section contains the Chemistry/Hematology Results that were resulted 30 days before or 30 daysafter the date of the Encounter. Date/Time Source Result Type Result - Unit Interpretation Reference Range Comment Sep 23, 2023 01:35 PM [facility] COVID-19 FLU/RSV DIAGNOSTIC PANEL Speci men Type: NASOPHARYNX Comment: This test is authorized for emergency use only. False negative results may occur if virus is present at levels below the analytical limit of detection.Nega tive results do not preclude SARS-CoV-2, influenza or RSV infection and should not be used as the sole basis for treatment or other patient management decisions.[facility] mone FLUVID: HCPs: https://www.fd a.gov/media/70 3851/download. Patients: https://www.[employer] [place] a.gov/media/14 6596/download Ordering Provider: CHATO ADHIKARI Report Released Date/Time: Sep 23, 2023 01:14 PM Reporting Lab: [address] [address] Performing Lab: [address] [address] COVID-19 PCR (FLUVID) NEGATIVE NEGATIVE FLU A PCR (FLUVID) NEGATIVE FLU B PCR (FLUVID) NEGATIVE RSV PCR (FLUVID) NEGATIVE Sep 16, 2023 01:56 PM [facility] HEMOGLOBIN A1C PANEL Specimen Type: BLOOD [...] Sep 16, 2023 01:09 PM Reporting Lab: [address] [address] Performing Lab: [address] [address] HEMOGLOBIN A1C 6.8 H 4.0-5.6 Sep 16, 2023 01:56 PM [facility] BASIC METABOLIC PANEL (non-fasting) Specimen Type: SERUM No comment entered. Ordering Provider: NIK GILL Report Released Date/Time: Sep 16, 2023 01:09 PM Reporting Lab: [address] [address] Performing Lab: [address] [address] UREA NITROGEN 25 mg/dL 7-25 GLUCOSE 234 mg/dL H 65-100 SODIUM 140 mmol/L 135-145 POTASSIUM 5.0 mmol/L 3.5-5.0 CHLORIDE 106 mmol/L 100-110 CO2 23 meq/L 20-30 CREATININE, Serum 1.80 mg/dL H 0.50-1.40 eGFR(CKD-EPI 2020) 36 mL/min L >60 Sep 16, 2023 01:56 PM [facility] CBC Specimen Type: BLOOD No comment entered. Ordering Provider: NIK GILL Report Released Date/Time: Sep 16, 2023 01:09 PM Reporting Lab: [facility] [address] [facility] [address] Performing Lab: [facility] [address] [facility] [address] WBC 7.86 10*3/uL 4.50-11.00 RBC 4.28 10*6/uL [...] and tobacco- related health factors from the [place] facility where the Encounter took place. Current Smoking Status This section includes the most current smoking, or tobacco-related health factor, from the [place] facility where the Encounter took place. Date/Time Current Smoking Status Comment Jesus fall Apr 28, 2023 03:00 PM [place]AC[place] NEVER USED [facility] Tobacco Use History This section includes a history of the smoking, or tobacco-related health factors, that were collected on or before the date of the Encounter. The data comes from the [place] facility where the Encounter took place. Date/Time Smoking Status/Tobacco Use Comment Laney kirkpatrick Apr 09, 2021 10:00 AM [place]-TOBAC[place] NEVER USED [facility] Mar 13, 2020 12:30 PM [facility]-TOBACCO NEVER USED [facility] Feb 02, 2018 02:02 PM [place]-TOBACCO NEVER USED [facility] Mar 10, 2017 01:57 PM LIFETIME NON-TOBACCO USER [facility] Feb 11, 2016 02:44 PM LIFETIME NON-TOBACCO USER [facility] May 09, 2009 09:43 AM LIFETIME NON-TOBACCO USER [facility] Radiology Reports: +/- 30 days of the [...] the Encounter. The data comes from all [place] treatment facilities. Date/Time Radiology Report Provider Source Sep 24, 2023 03:11 PM CHEST (2 VIEWS): ORLY LEAVITT [id number] -[id number] M Exm Date: SEP 24, 2023@15:11 Req Phys: CHATO ADHIKARI Loc: [facility]/SO/SICK CALL PE TEACHER (Req'g Loc Img Loc: [facility]/BUILDING 1 Service: Unknown (Case [id number] COMPLETE) CHEST (2 VIEWS) (RAD Detailed) CPT:05623 Reason for Study: wheezing, cough, SOB Clinical History: Covering resident, fellow, PE TEACHER or attending: Chato Adhikari NP [place] Pager: [phone] Backup pager: History: Report Status: Verified Date Reported: SEP 24, 2023 Date Verified: SEP 24, 2023 Wheat Buyer E-Sig:/ES/LATRICE DUNBAR JR Report: Study: PA and [...] Primary Interpreting Staff: LATRICE DUNBAR JR, Radiologist (Wheat Buyer) /LATRICE BAGLEY JR [facility] Encounter Notes: All associated encounter notes This section contains the clinical notes associated to the Encounter. Date/Time Encounter Note(s) Provider Source Sep 17, 2023 03:07 PM PHARMACY OUTPATIEN T NOTE: LOCAL TITLE: PHARMACY CLINIC NOTE STANDARD TITLE: PHARMACY OUTPATIENT NOTE DATE OF NOTE: SEP 17, 2023@15:07 ENTRY DATE: SEP 17, 2023@15:07:49 AUTHOR: TARUN GILL COSIGNER: URGENCY: STATUS: COMPLETED PHARMACY CLINIC NOTE Has ADDENDA Patient Name: ORLY LEAVITT was seen via F2F for follow-up for diabetes management treatment. : May Age: 87 Sex: MALE Race: WHITE Subjective: Pt presents to the visit w/ his dtr Mindi (tel# [phone]). Pt states he is doing well. He was seen by PCP on 09/15/23. Pt has no concerns at this time. Per prev: Pt presents for a f/up. He is tolerating [...] Pt has had 6 stents placed. Pt's specialty sales consultant Dr. Flannery in [place]. Dr. Ríos is the nursing unit clerk on the outside. Pt lives w/ his Per consult from PCP pt is interested in obtaining sensor from the [place]. Target Goals: A1C: 7%; FB-130 mg/dL; 2HRS PP <180mg/dL. Allergies: COLCHICINE/PROBENECID PERTINENT INFORMATION: Active problems - Computerized Problem List is the source for the followin. Obstructive Sleep Apnea of Adult (SCT [id number]) 2. Prostate Cancer ([facility] [id number]) 3. Chronic kidney disease stage 3 4. Low Back Pain * 5. Vitamin B 12 Deficiency 6. 2009: Colonoscopy: Polypectomy 7. 11-08-09: PFT: Normal 8. Abdominal aortic aneurysm (SNOMED CT 966149481) 9. Benign essential hypertension (SNOMED CT 4263225) 10. Venous insufficiency of leg (SNOMED CT 712130018) 11. Other dyspnea and respiratory abnormality 12. Coronary arteriosclerosis (SNOMED CT 25316434) 13. CAD: 2005:PTCA 5 TaxusStents: LADx2 RCAx2 Prox RCA x1 14. Gout 15. Hyperglycemia due to type 2 diabetes mellitus (SNOMED CT 366437387349084) 16. Gastroesophageal Reflux Disorder 17. Hyperlipidemia (SNOMED CT 27266302) 18. 1957: 2 rt inguinal hernia repair/[place] 19. 1969: Lipoma Removal 20. Tonsillectomy and Adenoidectomy (under age 12) 21. FAM HX-[facility] HEART DIS Objective: Diabetes Medication Regimen: -- metformin 500 mg bid - decreased d/t CKD -eGFR [facility] 07/2022 31ml/min -eGFR [place] 09/16/23: 36ml/min -- semaglutide 1 mg weekly (Wednesdays) - incresaed dose on May, -- Insulin Novolog mixed pen 70/30 6:30-7AM = 26 units 6 PM = 20 units - TDD: 44 units Previous DM Medications: - metformin - pt is not sure why he stopped ? eGFR 40 ml/min - restarted on 03/2023 -- Trulicity 1.5 mg weekly (Wednesdays) - switched over to semagluitde at [place] - glipizide - stopped 04/2023 Adherence: Oral [...] 100 % DAYS W/ CGM DATA Date: 09/16/23 14 day av mg/dl 3% VERY HIGH 30% HIGH 66% IN RANGE <1% LOW 0% VERY LOW 86 % DAYS W/ CGM DATA NUTRITION: Diet [...] is requesting to obtain it from the [place]. Per above note, pt does not wish to transition to basal/bolus regimen due to too high complexity and too many injections. Informed the pt that [place] currently only has vials of novolog mix 70/30 - as the pens are on computerized mill recorder's backorder. Reviewed w/ pt and dtr how to use vial and syringe. Pt's dtr works in medical field is very well familiar how to perform injections using vials and syringes. Pt and dtr were able to demonstrate back to the freelance copywriter how to use it. Will order it + syringes pt to pickle pumper at the pharmacy window tomorrow. Reviewed the [...] Will assess futher. Reviewed the upload w/ and dtr. f/up end of June. [place] adn dtr received written instructions. Date: 09/16/23 Pt's average BG level is at 168 mg/dl. Time in target increased to 66%. Congratulated pt on all of his achievements. At this time recommend to further increase the morning insulin dose per protocol. Pt and dtr in agreement. Recommend to c/t at current dose of ozempic. reviewed nutrition. Reviewed the hypoglycemia management. Most BG excursions occur post prandially after breakfast/lunch. Pt to repeat blood work today. DIABETES A1c is above goal of <7% - Medication management Diabetes Objective: Diabetes Medication Regimen: -- C/T semaglutide 1 mg weekly (Wednesdays) -- c/t metformin 500 mg bid - decreased d/t CKD; eGFR 31ml/min on 08/08 --INCREASE Insulin Aspart mixed (VIAL) 70/30 6:30-7AM = 28 units 6 PM = 20 units TDD: 48 units - Reviewed [place] lab results - Monitor for s/sx hypoglycemia [...] of Preventive Care: Most recent visit to channel supervisor: @ [place]; seen by Dr. Reyes 2 weeks ago; Most recent visit to optometry:@[place]; last visit in 2021: 1. Diabetes mellitus without retinopathy or macular edema. Clinic's Next Scheduled Follow-up: 12/30/23 No barriers; Patient understands and agrees to current treatment plan. If he has any questions, concerns, or changes in current health status [facility] will call [facility] FUTURE APPOINTMENTS: 09/30/2023 15:00 CWM/KA[facility]LY[facility]/PODIATRY/RICKY 10/13/2023 13:00 NHM/OPTOMETRY/DALE DM type is :t2d Length of Visit: 45 minutes PBM PharmD Pharmacotherapy Rem V12: PHARMACIST INTERVENTIONS: TYPE 2 DIABETES MELLITUS Medication Intervention(s) Adjust dose or frequency of current medication due to other reason Plan: increase dose of am insulin mix Medication monitoring, no dosage change required, continue to monitor and assess /es/ TARUN GILL CLINICAL JEWEL BEARING DRILLER Signed: 09/17/2023 15:19 Receipt Acknowledged By: 09/21/2023 11:30 /es/ MARGARITA FLOREZ MD PHYSICIAN 11/05/2023 ADDENDUM STATUS: COMPLETED pt's dtr Mindi called stating pt is out of ozempic. There are currently no refills left. Rx has been renewed for mail per pt's request. Mindi's phone nubmer: [phone] /radhames/ TARUN GILL CLINICAL JEWEL BEARING DRILLER Signed: 11/05/2023 08:01 TARUN GILL [facility]
--- OUTSIDE RECORDS SUMMARY | 2024-05-24 13:13 | XMS_ITS | Encounter Summary ---
Author Name [facility] [facility] [place] [facility] [place] Address [address] [place] [id number] Care Team Providers Care Gum Cook Name Role Phone MARGARITA FLOREZ Primary Care [...] Relationship to Policy Bejarano ALVA [place] [facility] Dec 13, 2013 [id number] DAGMAR,ZIA ERT PATIENT [place] MEDICARE SUPPLEMEN [facility] November 06, 2007 [id number] [phone] DAGMAR,ZIA ERT PATIENT [place] MED[place]ARE SUPPLEMEN [facility] 2 November 06, 2007 [id number] DAGMAR,ZIA ERT PAT[place] SUPP[place]MEN [facility] 2 November 06, 2007 [id number] [phone] DAGMAR,ZIA ERT PATIENT BCBS OF [facility] MEDICARE SUPPLEMEN [facility] Dec 13, 2013 [id number] [phone] DAGMAR,ZIA ERT PATIENT [place] SUPPLEMEN [facility] AN/MX Dec 13, 2008 [id number] DAGMAR,ZIA ERT PATIENT MEDICARE (WNR) MEDICARE () PART B May 15, 2012 PART B [id number] DAGMAR,ZIA ERT PATIENT MEDICARE (WNR) MEDICARE () PART A May 15, 2002 PART A [id number] DAGMAR,ZIA ERT PATIENT MEDICARE (WNR) MEDICARE () PART B May 15, 2002 PART B [id number] [phone] DAGMAR,ZIA ERT PATIENT MEDICARE (WNR) MEDICARE () PART A May 15, 2002 PART A [id number] [phone] DAGMAR,ZIA ERT PATIENT MEDICARE (WNR) MEDICARE () PART A May 15, 2002 PART A [id number] [id number] DAGMAR,ZIA ERT PATIENT MEDICARE (WNR) MEDICARE () PART B May 15, 2002 PART B [id number] DAGMAR,ZIA ERT PATIENT MEDICARE (WNR) MEDICARE () PART A May 15, 2002 PART A [id number] [phone] DAGMAR,ZIA ERT PATIENT MEDICARE (WNR) MEDICARE () PART B May 15, 2002 PART B [id number] [phone] DAGMAR,ZIA ERT PATIENT Selected Encounter This section includes the information on record at [place] for the Encounter. Date/Time Encounter Type Encounter Description Reason Provider Source Sep 30, 2023 03:00 PM OFFICE O/P EST LOW 20 MIN PODIATRY ICD-10-CM L60.0 Ingrowing WILLY Delacruz Grec[place] Encounter Template Text not used by [facility] Assessments - Encounter Diagnoses This section includes the primary and secondary diagnoses documented for the Encounter. Date/Time Primary/Secondary Diagnosis Diagnosis Name Provider Source October 22, 2023 10:44 AM PRIMARY Ingrowing WILLY Delacruz [facility] October 22, 2023 10:44 AM SECONDARY Pain in left toe(s) WILLY GARCÍA [place] October 22, 2023 10:44 AM SECONDARY Pain in right toe(s) WILLY GARCÍA [place] October 22, 2023 10:44 AM SECONDARY Type 2 diabetes w diabetic peripheral angiopath w/o gangrene WILLY GARCÍA Plan of Treatment: Future Appointments (+ 6 months) and Future Tests (+/- 45 days) The Plan of Treatment section includes future care activities for the patient from all [place] treatmentfacilities. This section includes future appointments and future orders which are active, pending or scheduled. Future Appointments This section includes appointments that were scheduled to occur 6 months from the date of the Encounter, up to a maximum of 20 appointments. The data comes from all [place] treatment facilities. Appointment Date/Time Appointment Type Appointme nt Facility Name Oct 13, 2023 01:00 PM AMBULATORY [facility]INE [facility] October 16, 2023 01:00 PM AMBULATORY MEDICINE [facility] Dec 15, 2023 02:30 PM AMBULATORY - MEDICINE [facility] Dec 30, 2023 03:00 PM AMBULATORY MEDICINE [facility] Mar 02, 2024 03:00 PM AMBULATORY - MEDICINE [facility] Lab Results: +/- 30 days of the encounter This section includes the Chemistry and Hematology Lab Results on record with [place] for the patient. Radiology Reports and Pathology Reports are provided separately, in subsequent sections. Lab Results This section contains the Chemistry/Hematology Results that were resulted 30 days before or 30 daysafter the date of the Encounter. Date/Time Source Result Type Result - Unit Interpretation Reference Range Comment Sep 23, 2023 01:35 PM [facility] COVID-19 FLU/RSV DIAGNOSTIC PANEL Speci men Type: NASOPHARYNX Comment: This test is authorized for emergency use only. False negative results may occur if virus is present at levels below the analytical limit of detection.Nega tive results do not preclude SARS-CoV-2, influenza or RSV infection and should not be used as the sole basis for treatment or other patient management decisions.[facility] mone FLUVID: HCPs: https://www.fd a.gov/media/ 4687/download. Patients: https://www.USConnect a.gov/media/ 0767/download Ordering Provider: CHATO ADHIKARI Report Released Date/Time: Sep 23, 2023 01:14 PM Reporting Lab: [address] [address] Performing Lab: [address] [address] COVID-19 PCR (FLUVID) NEGATIVE NEGATIVE FLU A PCR (FLUVID) NEGATIVE FLU B PCR (FLUVID) NEGATIVE RSV PCR (FLUVID) NEGATIVE Sep 16, 2023 01:56 PM [facility] HEMOGLOBIN A1C PANEL Specimen Type: [...] Sep 16, 2023 01:09 PM Reporting Lab: [address] [address] Performing Lab: [address] [address] HEMOGLOBIN A1C 6.8 H 4.0-5.6 Sep 16, 2023 01:56 PM [facility] BASIC METABOLIC PANEL (non-fasting) Specimen Type: SERUM No comment entered. Ordering Provider: NIK GILL Report Released Date/Time: Sep 16, 2023 01:09 PM Reporting Lab: [address] [address] Performing Lab: [address] [address] UREA NITROGEN 25 mg/dL 7-25 GLUCOSE 234 mg/dL H 65-100 SODIUM 140 mmol/L 135-145 POTASSIUM 5.0 mmol/L 3.5-5.0 CHLORIDE 106 mmol/L 100-110 CO2 23 meq/L 20-30 CREATININE, Serum 1.80 mg/dL H 0.50-1.40 eGFR(CKD-EPI 2020) 36 mL/min L >60 Sep 16, 2023 01:56 PM [facility] CBC Specimen Type: BLOOD No comment entered. Ordering Provider: NIK GILL Report Released Date/Time: Sep 16, 2023 01:09 PM Reporting Lab: [facility] [address] [address] Performing Lab: [facility] [address] [facility] [address] WBC 7.86 10*3/uL 4.50-11.00 RBC 4.28 10*6/uL [...] Height Weight Body Mass Index Source Sep 30, 2023 03:32 PM 97.3 93 138/74 18 96 0 [place] Social History: Smoking Status (Most current) and Tobacco Use (All prior to encounter date) This section includes the most current, and the historical, smoking and tobacco- related health factors from the [place] facility where the Encounter took place. Current Smoking Status This section includes the most current smoking, or tobacco-related health factor, from the [place] facility where the Encounter took place. Date/Time Current Smoking Status Comment Jesus fall Apr 28, 2023 03:00 PM [place]-TOBACCO NEVER USED [facility] Tobacco Use History This section includes a history of the smoking, or tobacco-related health factors, that were collected on or before the date of the Encounter. The data comes from the [place] facility where the Encounter took place. Date/Time Smoking Status/Tobacco Use Comment F acility Apr 09, 2021 10:00 AM VA-TOBACCO NEVER USED [facility] Mar 13, 2020 12:30 PM VA-TOBACCO NEVER USED [facility] Feb 02, 2018 02:02 PM VA-TOBACCO NEVER USED [facility] Mar 10, 2017 01:57 PM LIFETIME NON-TOBACCO USER [facility] Feb 11, 2016 02:44 PM LIFETIME NON-TOBACCO USER [facility] May 09, 2009 09:43 AM LIFETIME NON-TOBACCO USER [facility] Radiology Reports: +/- 30 days of the [...] the Encounter. The data comes from all [place] treatment facilities. Date/Time Radiology Report Provider Source Sep 24, 2023 03:11 PM CHEST (2 VIEWS): ORLY LEAVITT [id number] [phone] Ex Date: SEP 24, 2023@15:11 Req Phys: CHATO ADHIKARI Loc: CWM/SO/SICK CALL HEAT REGULATOR (Req'g Loc Img Loc: [facility] 1 Service: Unknown (Case [id number] COMPLETE) CHEST (2 VIEWS) (RAD Detailed) CPT:00947 Reason for Study: wheezing, cough, SOB Clinical History: Covering resident, fellow, HEAT REGULATOR or attending: Chato Adhikari NP [place] Pager: [phone] Backup pager: History: Report Status: Verified Date Reported: SEP 24, 2023 Date Verified: SEP 24, 2023 Compressor Repairer E-Sig:/ES/LATRICE DUNBAR JR Report: Study: PA and [...] Primary Interpreting Staff: LATRICE DUNBAR JR, Radiologist (Compressor Repairer) /LATRICE BAGLEY JR [place] [facility] Encounter Notes: All associated encounter notes This section contains the clinical notes associated to the Encounter. Date/Time Encounter Note(s) Provider Source Sep 30, 2023 08:51 AM PODIATRY NOTE: LOCAL TITLE: PODIATRY NOTE STANDARD TITLE: PODIATRY NOTE DATE OF NOTE: SEP 30, 2023@08:51 ENTRY DATE: SEP 30, 2023@08:51:27 AUTHOR: WILLY GARCÍA EXP COSIGNER: URGENCY: STATUS: COMPLETED NOTE: HAS RECEIVED BOTH COVID VACCINE DOSES AT [facility] LAST SEEN: 04/29/2023 S: Pt. is an 88 yo alert WDWN CAUC MALE who is seen for continued podiatric EVALUATION & care FOR TREATMENT of painful incurvated nails. There has been pain for several weeks, HALLUX NAIL bilateral, which is of an aching nature and is exacerbated with shoes & increased activity and is 2-3/10 and resolved upon completion of care this date with pain level 0/10. There is no history of trauma. There have been no recent changes in the patient's medical condition or medications per my questioning TODAY. Pt. is at risk of injury with self-care due to the presence of TYPE II DM *NOTE: PATIENT DENIES ANY RECENT CHANGES IN MEDS-SEE RECONCILIATION PERFORMED THIS DATE-BELOW DENIES TOBACCO O: Exam reveals skin color to be WNL, temp is diminished warm to cool proximal to distal, text has areas of dryness plantar aspect of feet bilat. There is absence of hair noted. Nails are incurvated with rubor in the medial & lateral nail grooves and pain on palpation. There is hyperkeratosis lateral 5th MPJ bilateral with pain on palpation and rubor at the periphery of the lesions. Affected nails are as follows: HALLUX BILAT. There are no other gross LE changes in status noted this date. PMH: Active problems - Computerized Problem List is the source for the following: *NOTE: REVIEWED ABOVE NOTING NO CHANGES SINCE PREVIOUS VISIT- SEE PROBLEM LIST TEMPLATE FOR COMPLETE LIST NEEDED. *NOTE: A1c = 6.8 (LAST TAKEN: 09/2023) CMW=[id number] week on prednisone RISK VALUE =2 HEIGHT: 70 in [177.8 cm] (02/11/2016 14:42) WEIGHT: 210.6 lb [95.7 kg] (02/11/2016 14:42) VASCULAR: EXAM REVEALS DP & PT pulses TO BE absent non-palpable bilateral. CFT <3 sec x 10. There is no edema and there are no varices noted. MUSCULOSKELETAL: Exam reveals muscle strength and tone to be equal & symmetrical bilaterally & WNL for an individual of this age and present physical-medical condition. There is pain free ROM at all joints distal to and including the ankle. NEUROLOGICAL: Exam reveals S/D, vibratory, light touch & proprioception sensations to be equal & symmetrical bilaterally & diminished for an individual of this age and present physical-medical status. Protective sensation utilizing a [place]-Adam lOg monofilament is 10/10 bilateral. ABOVE exams are reviewed and noted to be unchanged since previous visit and are non-contributory to the cc . A: Clinical Impression: Painful onychocryptic nails(bilateral) as noted above in the presence of PVD & DM & pain level 2-3/10 prior to treatment and 0/10 after. Class findings have been met in a high risk individual and the systemic condition has resulted in circulatory impairment & areas of desensitization. P: Treatment consists of trimming-reduction of all nails via manual and electric means with excision of offending nail borders and curetting of the nail grooves and surgical paring-debridement of the hyperkeratosis via sterile #15 scalpel. Applied ammonium lactate 12% lotion to dry skin. All care rendered without complications & pt. progressing well after podiatric care this date & will be scheduled for periodic care in an attempt to prevent future complications due to the underlying medical conditions. Tx. By a non- professional could be extremely hazardous to the patient's well-being due to the underlying medical condition. Patient advised to apply lotion under occlusion for dry skin and to try once a week. RTC 24 WEEKS (03/02 @ 3PM) *REVIEWED HOME FOOT CARE FEET ARE IN EXCELLENT CONDITION AND I PROVIDED HIM WITH WRITTEN RECOMMENDATIONS FOR FOOT CARE TO BE REVIEWED AT HOME (FOOT CARE TIPS). *DISCUSSED NEW PROTOCOLS AND CALLED JES FOR RESCHEDULING TODAY I DISCUSSED THE FINDINGS & PLAN WITH PATIENT (UNCHANGED SINCE PREVIOUS VISIT) & PATIENT AGREES AND UNDERSTANDS PLAN & RECEIVED MIRROR ALREADY Medication Reconciliation: PERFORMED TODAY - SEE BELOW. Outpatient: Has the patient been taking medications as documented in the EMLR? YES: The patient has been taking medications as documented in the EMLR. Essential Medication List for Review used to complete this medication reconciliation. INCLUDED IN THIS LIST: Alphabetical list of active outpatient prescriptions dispensed from this [facility] (local) and dispensed from another [place] or [place] facility (remote) as well as inpatient orders (local, pending and active), local clinic medications, locally documented non-VA medications, and local prescriptions that have or been discontinued in the past 90 days. - All changes in medications, including all non-VA/Herbal/OTC medications were entered into CPRS. - If there were any medications the patient should no longer take, they were discontinued. - The patient/caregiver was instructed to update this list, discard old lists, and take this list to the next appointment, whether with a VA or non-VA provider. JLV Link Data on this list may not be complete. Please check JLV. Allergies/ADRs (Tool #5) FACILITY ALLERGY/ADR -------- No Remote Allergy/ADR Data available for this patient [place] [facility] [place] [facility] COLCHICINE/PROBENECID Med Recon NoGlossary (Tool #1) INCLUDED IN THIS LIST: Alphabetical list of active outpatient prescriptions dispensed from this [facility] (local) and dispensed from another [place] or [place] facility (remote) as well as inpatient orders (local pending and active), local clinic medications, locally documented non-VA medications, and local prescriptions that have or been discontinued in the past 90 days. Non-VA Meds Last Documented On: Sep 15, 2023 NOTE The display of VA prescriptions dispensed from another [place] or [place] facility (remote) is limited to active outpatient prescription entries matched to National Drug File at the originating site and may not include some items such as investigational drugs, compounds, etc. NOT INCLUDED IN THIS LIST: Medications self-entered by the patient into personal health records (i.e. [facility]) are NOT included in this list. Non-VA medications documented outside this [place], remote inpatient orders (regardless of status) and remote clinic medications are NOT included in this list. The patient and provider must always discuss medications the patient is taking, regardless of where the medication was dispensed or obtained. OUTPT ALBUTEROL 90MCG (CFC-F) 200D ORAL INHL (Status = Active) INHALE 1 TO 2 PUFFS BY MOUTH EVERY 6 HOURS NEEDED FOR BRONCHOSPASM Rx# [id number] Last Released: 09/23/23 Qty/Days Supply: 06/24 Rx Expiration Date: 10/23/23 Refills Remainin Indication: FOR BRONCHOSPASM OUTPT ALLOPURINOL 100MG TAB (Status = Active) TAKE ONE TABLET BY MOUTH TWICE DAILY FOR GOUT Rx# [id number] Last Released: 08/29/23 Qty/Days Supply: Rx Expiration Date: 05/17/24 Refills Remainin OUTPT AMLODIPINE BESYLATE 5MG TAB (Status = Active/Suspended) TAKE ONE TABLET BY MOUTH ONCE DAILY FOR BLOOD PRESSURE/HEART, DO NOT TAKE WITH GRAPEFRUIT JUICE Rx# [id number] Last Released: 07/13/23 Qty/Days Supply: Rx Expiration Date: 05/17/24 Refills Remainin OUTPT AMOXICILLIN 500MG CAP (Status = Active) TAKE ONE CAPSULE BY MOUTH TWICE DAILY Rx# [id number] Last Released: 09/28/23 Qty/Days Supply: 26/12 Rx Expiration Date: 10/28/23 Refills Remainin Indication: FOR INFECTION CAUSED BY BACTERIA Non-VA ASPIRIN 81MG EC TAB TAKE ONE TABLET BY MOUTH DAILY Non-VA medication not recommended by VA provider. OUTPT CARBOXYMETHYLCELLULOSE NA 0.5% OPH SOLN (Status = Active) INSTILL 1 DROP INTO EACH EYE FOUR TIMES DAILY NEEDED FOR DRY EYE Rx# [id number] Last Released: 10/16/22 Qty/Days Supply: Rx Expiration Date: 10/10/23 Refills Remainin Indication: FOR DRY EYE Non-VA CHOLECALCIF 25MCG (D3-1,000UNIT) TAB TAKE ONE TABLET BY MOUTH ONCE DAILY Patient wants to buy from Non-VA pharmacy. Medication prescribed by Non-VA provider. Indication: FOR VITAMIN D DEFICIENCY OUTPT CLOPIDOGREL BISULFATE 75MG TAB (Status = Active) TAKE ONE TABLET BY MOUTH ONCE DAILY TO PREVENT BLOOD CLOTS Rx# [id number] Last Released: 09/24/23 Qty/Days Supply: 90 Rx Expiration Date: 05/17/24 Refills Remainin Indication: TO PREVENT BLOOD CLOTS Non-VA CYANOCOBALAMIN 250MCG TAB TAKE ONE TABLET BY MOUTH ONCE DAILY Patient wants to buy from Non-VA pharmacy. OUTPT DM 10/GUAIFENESN 100MG/5ML (AF & SF) LIQ (Status = Active) TAKE 10 MLS BY MOUTH EVERY 6 HOURS NEEDED FOR COUGH Rx# [id number] Last Released: 09/23/23 Qty/Days Supply: 120/10 Rx Expiration Date: 10/23/23 Refills Remainin Indication: FOR COUGH OUTPT FENOFIBRATE 145MG TAB (Status = Active/Suspended) TAKE ONE TABLET BY MOUTH AT BEDTIME TO LOWER CHOLESTEROL Rx# [id number] Last Released: 08/10/23 Qty/Days Supply: 90 Rx Expiration Date: 05/28/24 Refills Remainin Non-VA FERROUS GLUCONATE 324MG TAB TAKE ONE TABLET BY MOUTH EVERY 48 HOURS Patient wants to buy from Non-VA pharmacy. Medication prescribed by Non-VA provider. Indication: TO SUPPLEMENT IRON Non-VA FISH OIL 1000MG (500MG DHA/EPA) CAP TAKE 1 CAPSULE BY MOUTH DAILY Non-VA medication not recommended by VA provider. OUTPT FUROSEMIDE 20MG TAB (Status = Active) TAKE ONE TABLET BY MOUTH ONCE DAILY TO REMOVE FLUID/CONTROL BLOOD PRESSURE Rx# [id number] Last Released: 09/16/23 Qty/Days Supply: 90 Rx Expiration Date: 09/15/24 Refills Remainin Indication: FOR EDEMA WITH DEFECTIVE KIDNEY FUNCTION OUTPT FUROSEMIDE 40MG TAB (Status = Discontinued) TAKE ONE TABLET BY MOUTH ONCE DAILY TO REMOVE FLUID/CONTROL BLOOD PRESSURE Rx# [id number] Last Released: 08/21/23 Qty/Days Supply: 90 Rx Expiration Date: 05/17/24 Refills Remainin OUTPT GABAPENTIN 300MG CAP (Status = Active) TAKE ONE CAPSULE BY MOUTH AT BEDTIME Rx# [id number] Last Released: 07/06/23 Qty/Days Supply: Rx Expiration Date: 04/22/24 Refills Remainin Non-VA INSULIN,ASPART,HUMAN 70/30 NOVOLOG INJ NOVOLOG BY INJECTION INJECT 16 UNITS SUBCUTANEOUSLY Patient wants to buy from Non-VA pharmacy. Medication prescribed by Non-VA provider. 16 units BEFORE MEALS breakfast, 12 units BEFORE MEALS dinner OUTPT INSULIN,ASPART,HUMAN 70/30 NOVOLOG INJ (Status = Active) INJECT 24 UNITS SUBCUTANEOUSLY EVERY MORNING AND INJECT 20 UNITS EVERY EVENING Rx# [id number] Last Released: 09/22/23 Qty/Days Supply: Rx Expiration Date: 06/10/24 Refills Remainin Indication: FOR DIABETES OUTPT LISINOPRIL 5MG TAB (Status = Discontinued) TAKE ONE TABLET BY MOUTH ONCE DAILY TO CONTROL BLOOD PRESSURE Rx# [id number] Last Released: 08/29/23 Qty/Days Supply: Rx Expiration Date: 05/17/24 Refills Remainin OUTPT LUBRICATING (PF) OPH OINT (Status = Active) APPLY THIN RIBBON INTO EACH EYE AT BEDTIME Rx# [id number] Last Released: 10/16/22 Qty/Days Supply: 07/12 Rx Expiration Date: 10/10/23 Refills Remainin OUTPT MAGNESIUM OXIDE 420MG TAB (Status = Active) TAKE ONE TABLET BY MOUTH TWICE DAILY FOR MAGNESIUM SUPPLEMENTATION Rx# [id number] Last Released: 07/30/23 Qty/Days Supply: Rx Expiration Date: 04/23/24 Refills Remainin Indication: FOR MAGNESIUM SUPPLEMENTATION OUTPT METFORMIN HCL 500MG 24HR SA TAB (Status = Active) TAKE TWO TABLETS BY MOUTH ONCE DAILY Rx# [id number] Last Released: 09/18/23 Qty/Days Supply: Rx Expiration Date: 05/17/24 Refills Remainin OUTPT METOPROLOL SUCCINATE 100MG SA TAB (Status = Active/Suspended) TAKE ONE TABLET BY MOUTH ONCE DAILY FOR BLOOD PRESSURE/HEART Rx# [id number] Last Released: 08/12/23 Qty/Days Supply: Rx Expiration Date: 05/17/24 Refills Remainin OUTPT NIACIN (SLO-NIACIN) 750MG TAB,SA (Status = On Hold) TAKE ONE TABLET BY MOUTH TWICE DAILY Rx# [id number] Last Released: Qt Supply: 200 Rx Expiration Date: 05/21/24 Refills Remainin OUTPT OMEPRAZOLE 20MG EC CAP (Status = Active) TAKE ONE CAPSULE BY MOUTH TWICE DAILY Rx# [id number] Last Released: 06/02/23 Qty/Days Supply: Rx Expiration Date: 05/17/24 Refills Remainin OUTPT PREDNISONE 50MG TAB (Status = Active) TAKE ONE TABLET BY MOUTH ONCE DAILY FOR BRONCHITIS Rx# [id number] Last Released: 09/23/23 Qt Supply: 10/17 Rx Expiration Date: 10/23/23 Refills Remainin Indication: BRONCHITIS OUTPT SEMAGLUTIDE 1MG/0.75ML INJ PEN 3ML (Status = Active) INJECT 1MG SUBCUTANEOUSLY ONCE A WEEK FOR TYPE 2 DIABETES MELLITUS Rx# [id number] Last Released: 09/14/23 Qt/Days Supply: 07/12 Rx Expiration Date: 06/10/24 Refills Remainin Indication: FOR TYPE 2 DIABETES MELLITUS OUTPT SIMVASTATIN 80MG TAB (Status = Active/Suspended) TAKE ONE-HALF TABLET BY MOUTH ONCE DAILY FOR CHOLESTEROL Rx# [id number] Last Released: 07/30/23 Qt/Days Supply: Rx Expiration Date: 05/17/24 Refills Remainin SUPPLIES OUTPT ACCU-CHEK GUIDE (GLUCOSE) TEST STRIP (Status = Active) USE 1 STRIP TO TEST BLOOD SUGARS TWICE DAILY Rx# [id number] Last Released: 05/05/23 Qty/Days Supply: 50/180 Rx Expiration Date: 04/28/24 Refills Remainin Indication: DIABETES OUTPT ACCU-CHEK GUIDE ME (GLUCOSE) METER (Status = ) USE METER TO TEST BLOOD SUGARS ONCE DAILY Rx# [id number] Last Released: 04/29/23 Qty/Days Supply: Rx Expiration Date: 07/27/23 Refills Remainin Indication: DIABETES OUTPT AEROCHAMBER Z-STAT PLUS (Status = Active) USE CHAMBER EVERY 6 HOURS NEEDED WITH ALBUTEROL INHALER Rx# [id number] Last Released: 09/25/23 Qty/Days Supply: 06/24 Rx Expiration Date: 10/23/23 Refills Remainin OUTPT GLUCOSE SENSOR DEXCOM G7 (Status = Discontinued) USE 1 SENSOR DIRECTED EVERY 10 DAYS Rx# [id number] Last Released: 07/01/23 Qty/Days Supply: Rx Expiration Date: 04/28/24 Refills Remainin OUTPT GLUCOSE SENSOR DEXCOM G7 (Status = Active) USE 1 SENSOR DIRECTED EVERY 10 DAYS Rx# [id number] Last Released: 08/05/23 Qty/Days Supply: Rx Expiration Date: 08/05/24 Refills Remainin OUTPT INSULIN SYRINGE 0.5ML 30G 12MM (Status = Active) USE 1 SYRINGE SUBCUTANEOUSLY TWICE DAILY FOR INSULIN INJECTIONS Rx# [id number] Last Released: 09/15/23 Qty/Days Supply: 200/90 Rx Expiration Date: 06/10/24 Refills Remainin OUTPT LANCET,SOFTCLIX (Status = Active) USE 1 LANCET TOPICALLY ONCE DAILY TO TEST BLOOD SUGAR Rx# [id number] Last Released: 05/05/23 Qty/Days Supply: 20090 Rx Expiration Date: 04/28/24 Refills Remainin Indication: DIABETES OUTPT SKIN BARRIER WIPE TORBOT SKIN TAC (Status = Active) USE 1 WIPE TOPICALLY EVERY 10 DAYS Rx# [id number] Last Released: 03/26/23 Qty/Days Supply: 5090 Rx Expiration Date: 03/24/24 Refills Remainin /es/ WILLY GARCÍA DPM VETERINARY VIROLOGIST Signed: 09/30/2023 15:21 WILLY GARCÍA
--- OUTSIDE RECORDS SUMMARY | 2024-05-24 13:13 | XMS_ITS | Encounter Summary ---
Author Name [facility] [facility] [place] [facility] [place] [facility] [place] Address [address] [place] [id number] Care Team Providers Care Biofuels Production Associate Name Role Phone MARGARITA FLOREZ Primary Care [...] Relationship to Policy [place]jar[place] [facility] Dec 13, 2013 [id number] [phone] DAGMAR,ZIA ERT PATIENT [place] MED[place]ARE SUPPLEMEN [facility] November 06, 2007 [id number] DAGMAR,ZIA ERT PATIENT [place]BS [place] MED[place]ARE SUPPLEMEN [facility] November 06, 2007 [id number] [phone] DAGMAR,ZIA ERT PATIENT [place] SUPPLE[place] [facility] November 06, 2007 [id number] DAGMAR,ZIA ERT PATIENT BCBS OF [facility] MEDICARE SUPPLEMEN [facility] Dec 13, 2013 [id number] DAGMAR,ZIA ERT PATIENT [place] SUPP[place]MEN [facility]/ [facility] AN/MX Dec 13, 2008 [id number] DAGMAR,ZIA ERT PATIENT MEDICARE (WNR) MEDICARE () PART B May 15, 2012 PART B [id number] DAGMAR,ZIA ERT PATIENT MEDICARE (WNR) MEDICARE () PART A May 15, 2002 PART A [id number] DAGMAR,ZIA ERT PATIENT MEDICARE (WNR) MEDICARE () PART A May 15, 2002 PART A [id number] DAGMAR,ZIA ERT PATIENT MEDICARE (WNR) MEDICARE () PART B May 15, 2002 PART B [id number] DAGMAR,ZIA ERT PATIENT MEDICARE (WNR) MEDICARE () PART B May 15, 2002 PART B [id number] DAGMAR,ZIA ERT PATIENT MEDICARE (WNR) MEDICARE () PART A May 15, 2002 PART A [id number] DAGMAR,ZIA ERT PATIENT MEDICARE (WNR) MEDICARE () PART B May 15, 2002 PART B [id number] [phone] DAGMAR,ZIA ERT PATIENT MEDICARE (WNR) MEDICARE () PART A May 15, 2002 PART A [id number] [phone] DAGMAR,ZIA ERT PATIENT Selected Encounter This section includes the information on record at [place] for the Encounter. Date/Time Encounter Type Encounter Description Reason Provider Source Sep 23, 2023 01:15 PM OFFICE O/P EST LOW 20 MIN PRIMARY CARE/MEDICINE ICD-10-CM J20.9 Acute bronchitis, unspecified CHATO ADHIKARI Grecia Encounter Template Text not used by [place] Assessments - Encounter Diagnoses This section includes the primary and secondary diagnoses documented for the Encounter. Date/Time Primary/Secondary Diagnosis Diagnosis Name Provider Source Oct 12, 2023 01:05 PM PRIMARY Acute bronchitis, unspecified CHATO ADHIKARI [facility] Plan of Treatment: Future Appointments (+ 6 months) and Future Tests (+/- 45 days) The Plan of Treatment section includes future care activities for the patient from all [place] [facility] This section includes future appointments and future orders which are active, pending or scheduled. Future Appointments This section includes appointments that were scheduled to occur 6 months from the date of the Encounter, up to a maximum of 20 appointments. The data comes from all [place] treatment facilities. Appointment Date/Time Appointment Type Appointme nt Facility Name Sep 30, 2023 03:00 PM [facility] Sep 30, 2023 03:15 PM [facility] Oct 13, 2023 01:00 PM [facility] [place] [facility] October 16, 2023 01:00 PM [facility] [place] [facility] Dec 15, 2023 02:30 PM [facility] Dec 30, 2023 03:00 PM [facility] Mar 02[facility] 2024 03:00 [facility] Lab Results: +/- 30 days of the encounter This section includes the Chemistry and Hematology Lab Results on record with [place] for the patient. Radiology Reports and Pathology Reports are provided separately, in subsequent sections. Lab Results This section contains the Chemistry/Hematology Results that were resulted 30 days before or 30 daysafter the date of the Encounter. Date/Time Source Result Type Result - Unit Interpretation Reference Range Comment Sep 23, 2023 01:35 PM [facility] COVID-19 FLU/RSV DIAGNOSTIC PANEL Speci men Type: NASOPHARYNX Comment: This test is authorized for emergency use only. False negative results may occur if virus is present at levels below the analytical limit of detection.Nega tive results do not preclude SARS-CoV-2, influenza or RSV infection and should not be used as the sole basis for treatment or other patient management decisions.[facility] mone FLUVID: HCPs: https://www.fd a.gov/media/ 7140/download. Patients: https://www.[employer] a.gov/media/ 6803/download Ordering Provider: CHATO ADHIKARI Report Released Date/Time: Sep 23, 2023 01:14 PM Reporting Lab: [facility] [address] [address] Performing Lab: [address] [address] COVID-19 PCR (FLUVID) NEGATIVE NEGATIVE FLU A PCR (FLUVID) NEGATIVE FLU B PCR (FLUVID) NEGATIVE RSV PCR (FLUVID) NEGATIVE Sep 16, 2023 01:56 PM [facility] HEMOGLOBIN A1C PANEL Specimen Type: BLOOD Comment: [...] Sep 16, 2023 01:09 PM Reporting Lab: [address] [address] Performing Lab: [address] [address] HEMOGLOBIN A1C 6.8 H 4.0-5.6 Sep 16, 2023 01:56 PM [facility] BASIC METABOLIC PANEL (non-fasting) Specimen Type: SERUM No comment entered. Ordering Provider: NIK GILL Report Released Date/Time: Sep 16, 2023 01:09 PM Reporting Lab: [address] [address] Performing Lab: [address] [address] UREA NITROGEN 25 mg/dL 7-25 GLUCOSE 234 mg/dL H 65-100 SODIUM 140 mmol/L 135-145 POTASSIUM 5.0 mmol/L 3.5-5.0 CHLORIDE 106 mmol/L 100-110 CO2 23 meq/L 20-30 CREATININE, Serum 1.80 mg/dL H 0.50-1.40 eGFR(CKD-EPI 2020) 36 mL/min L >60 Sep 16, 2023 01:56 PM [facility] CBC Specimen Type: BLOOD No comment entered. Ordering Provider: NIK GILL Report Released Date/Time: Sep 16, 2023 01:09 PM Reporting Lab: [facility] [address] [facility] [address] Performing Lab: [facility] [address] [facility] [address] WBC 7.86 10*3/uL 4.50-11.00 RBC 4.28 10*6/uL [...] and tobacco- related health factors from the [place] facility where the Encounter took place. Current Smoking Status This section includes the most current smoking, or tobacco-related health factor, from the [place] facility where the Encounter took place. Date/Time Current Smoking Status Comment Jesus fall Apr 28, 2023 03:00 PM [place]-TOBACCO NEVER USED [facility] Tobacco Use History This section includes a history of the smoking, or tobacco-related health factors, that were collected on or before the date of the Encounter. The data comes from the [place] facility where the Encounter took place. Date/Time Smoking Status/Tobacco Use Comment F acility Apr 09, 2021 10:00 AM [facility]-TOBACCO NEVER USED [facility] Mar 13, 2020 12:30 PM VA-TOBACCO NEVER USED [facility] Feb 02, 2018 02:02 PM VA-TOBACCO NEVER USED [facility] Mar 10, 2017 01:57 PM LIFETIME NON-TOBACCO USER [facility] Feb 11, 2016 02:44 PM LIFETIME NON-TOBACCO USER [facility] May 09, 2009 09:43 AM LIFETIME NON-TOBACCO USER [facility] Radiology Reports: +/- 30 days of the [...] the Encounter. The data comes from all [place] treatment facilities. 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 (Req'g Loc Img Loc: [facility]/BUILDING 1 Service: Unknown (Case [id number] COMPLETE) CHEST (2 VIEWS) (RAD Detailed) CPT:50491 Reason for Study: wheezing, cough, SOB Clinical History: Covering resident, fellow, CONSUMER MARKETING MANAGER or attending: Chato Adhikari NP [place] Pager: [phone] Backup pager: History: Report Status: Verified Date Reported: SEP 24, 2023 Date Verified: SEP 24, 2023 Acid Pump Operator E-Sig:/ES/LATRICE DUNBAR JR Report: Study: PA and [...] Primary Interpreting Staff: LATRICE DUNBAR JR, Radiologist (Acid Pump Operator) /LATRICE BAGLEY JR [place] [facility] Encounter Notes: All associated encounter notes This section contains the clinical notes associated to the Encounter. Date/Time Encounter Note(s) Provider Source Sep 24, 2023 03:38 PM ADDENDUM: LOCAL TITLE: Addendum STANDARD TITLE: ADDENDUM DATE OF NOTE: SEP 24, 2023@15:38:27 ENTRY DATE: SEP 24, 2023@15:38:28 AUTHOR: CHATO ADHIKARI EXP COSIGNER: URGENCY: STATUS: COMPLETED Please notify patient CXR is normal, no pneumonia. 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 Cough is keeping him awake at night. Had temp 99.9 last night. Denies sore throat, sinus or ear pain, N/V/D. Taking OTC Robitussin. is currently in the hospital for bilateral pneumonia and sepsis. Doesn't smoke, no hx asthma. [place] PCP: ======= MARGARITA FLOREZ VITAL SIGNS: Blood Pressure: 109/57 (09/15/2023 11:21) Pain: 1 (10/15/2021 14:15) Patient Height: 70 in [177.8 cm] (10/15/2021 14:15) Patient Weight: 216.4 lb [98.16 kg] (09/15/2023 11:21) Pulse: 88 (09/15/2023 11:21) Respiration: 18 (10/15/2021 14:15) Temperature: 98.1 F [36.7 C] (09/15/2023 11:21) REVIEW OF SYSTEMS: see HPI PHYSICAL EXAMINATION: General: Ill-appearing in no obvious distress. Mental Status: Alert and oriented x4. Head: no frontal or maxillary sinus pain with palpation Eyes: PERRL. EOMI. Anicteric sclerae. ENT: TM and ear canals normal bilaterally. Moist oral mucosa. Posterior pharynx unremarkable. Neck: Supple. No lymphadenopathy. Lungs: Expiratory wheezing noted throughout, poor air exchange. Normal chest excursion. Eupneic respirations at rest. 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 + conversational dyspnea. CV: Heart tones S1, S2. RRR. No M/G/R. No peripheral edema. GI: Abdomen is soft and nontender. Psych: Normal mood and affect. Normal judgment. Cooperative with exam, follows commands. ASSESSMENT/PLAN: 1. Bronchitis. Swabbed for Covid, FluA/B and RSV. Albuterol inhaler, steroid burst and cough suppressant with decongestant ordered. Stay well hydrated. Instructed to RTC if no improvement in 3-5 days, will consider ATB, CXR at that time. MEDICATIONS reviewed with FOLLOW UP: Return to clinic 3-5 days if no improvement in symptoms. UPCOMING APPOINTMENTS: No data available /radhames/ DOMINIK QUINONES CERTIFIED NURSE PRACTITIONER Signed: 09/23/2023 14:23 CHATO ADHIKARI [facility] Sep 24, 2023 03:30 PM RADIOLOGY NOTE: LOCAL TITLE: RADIOLOGY NOTE STANDARD TITLE: RADIOLOGY NOTE DATE OF NOTE: SEP 24, 2023@15:30 ENTRY DATE: SEP 24, 2023@15:30:37 AUTHOR: SHWETHA GARCIA EXP COSIGNER: URGENCY: STATUS: COMPLETED agreed to proceed with current date x-ray examination. Exam Complete. 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 Cough is keeping him awake at night. Had temp 99.9 last night. Denies sore throat, sinus or ear pain, N/V/D. Taking OTC Robitussin. is currently in the hospital for bilateral pneumonia and sepsis. Doesn't smoke, no hx asthma. [place] PCP: ======= MARGARITA FLOREZ VITAL SIGNS: Blood Pressure: 109/57 (09/15/2023 11:21) Pain: 1 (10/15/2021 14:15) Patient Height: 70 in [177.8 cm] (10/15/2021 14:15) Patient Weight: 216.4 lb [98.16 kg] (09/15/2023 11:21) Pulse: 88 (09/15/2023 11:21) Respiration: 18 (10/15/2021 14:15) Temperature: 98.1 F [36.7 C] (09/15/2023 11:21) REVIEW OF SYSTEMS: see HPI PHYSICAL EXAMINATION: General: Ill-appearing in no obvious distress. Mental Status: Alert and oriented x4. Head: no frontal or maxillary sinus pain with palpation Eyes: PERRL. EOMI. Anicteric sclerae. ENT: TM and ear canals normal bilaterally. Moist oral mucosa. Posterior pharynx unremarkable. Neck: Supple. No lymphadenopathy. Lungs: Expiratory wheezing noted throughout, poor air exchange. Normal chest excursion. Eupneic respirations at rest. 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 + conversational dyspnea. CV: Heart tones S1, S2. RRR. No M/G/R. No peripheral edema. GI: Abdomen is soft and nontender. Psych: Normal mood and affect. Normal judgment. Cooperative with exam, follows commands. ASSESSMENT/PLAN: 1. Bronchitis. Swabbed for Covid, FluA/B and RSV. Albuterol inhaler, steroid burst and cough suppressant with decongestant ordered. Stay well hydrated. Instructed to RTC if no improvement in 3-5 days, will consider ATB, CXR at that time. MEDICATIONS reviewed with [place] FOLLOW UP: Return to clinic 3-5 days if no improvement in symptoms. UPCOMING APPOINTMENTS: No data available /radhames/ DOMINIK QUINONES CERTIFIED NURSE PRACTITIONER Signed: 09/23/2023 14:23 09/24/2023 ADDENDUM STATUS: COMPLETED Please notify patient CXR is normal, no pneumonia. /DOMINIK Kemp CERTIFIED NURSE PRACTITIONER Signed: 09/24/2023 15:38 Receipt Acknowledged By: 09/24/2023 15:48 /osvaldo HEAD RN PRIMARY CARE RN 09/24/2023 ADDENDUM STATUS: COMPLETED updated in CXR reuslt. /osvaldo HEAD RN PRIMARY CARE RN Signed: 09/24/2023 15:50 09/28/2023 ADDENDUM STATUS: COMPLETED received call from daughter stating Vet with continued cough. antibiotic ordered at this time. She will pick it up today. If no improvement she will bring him to clinic. /osvaldo HEAD RN PRIMARY CARE RN Signed: 09/28/2023 11:51 CHATO ADHIKARI
--- OUTSIDE RECORDS SUMMARY | 2024-05-24 13:13 | XMS_ITS | Encounter Summary ---
Author Name [facility] [place] [facility] [place] Organization [facility] [place] Address [address] [place] [address] Care Team Providers Care Support Team Assoc Name Role Phone MARGARITA FLOREZ Primary Care [...] Policy Bejarano [place] [facility] Dec 13, 2013 [id number] [phone] DAGMAR,ZIA ERT PATIENT [place] SUPPLEMEN [facility] November 06, 2007 [id number] [phone] DAGMAR,ZIA ERT PATIENT [place] SUPPLEMEN [facility] November 06, 2007 [id number] [phone] DAGMAR,ZIA ERT PATIENT [place] SU[place] [facility] November 06, 2007 [id number] [phone] DAGMAR,ZIA ERT PATIENT BCBS OF [facility] MEDICARE SUPPLEMEN [facility] Dec 13, 2013 [id number] DAGMAR,ZIA ERT PATIENT [place] SUPPLEMEN [facility]/ WHITM AN/MX Dec 13, 2008 [id number] DAGMAR,ZIA ERT PATIENT MEDICARE (WNR) MEDICARE () PART B May 15, 2012 PART B [id number] DAGMAR,ZAI ERT PATIENT MEDICARE (WNR) MEDICARE () PART A May 15, 2002 PART A [id number] DAGMAR,ZIA ERT PATIENT MEDICARE (WNR) MEDICARE () PART B May 15, 2002 PART B [id number] [phone] DAGMAR,ZIA ERT PATIENT MEDICARE (WNR) MEDICARE () PART A May 15, 2002 PART A [id number] DAGMAR,ZIA ERT PATIENT MEDICARE (WNR) MEDICARE () PART A May 15, 2002 PART A [id number] DAGMAR,ZIA ERT PATIENT MEDICARE (WNR) MEDICARE () PART B May 15, 2002 PART B [id number] [phone] DAGMAR,ZIA ERT PATIENT MEDICARE (WNR) MEDICARE () PART B May 15, 2002 PART B [id number] DAGMAR,ZIA ERT PATIENT MEDICARE (WNR) MEDICARE () PART A May 15, 2002 PART A [id number] DAGMAR,ZIA ERT PATIENT Selected Encounter This section includes the information on record at [place] for the Encounter. Date/Time Encounter Type Encounter Description Reason Provider Source Sep 30, 2023 03:15 PM OFF/OP EST OCTOBER X REQ PHY/QHP PRIMARY CARE/MEDICINE ICD-10-CM R05.9 Cough, unspecified KIP HEAD IHGrecia Encounter Template Text not used by VA Assessments - Encounter Diagnoses This section includes the primary and secondary diagnoses documented for the Encounter. Date/Time Primary/Secondary Diagnosis Diagnosis Name Provider Source Sep 30, 2023 03:52 PM PRIMARY Cough, unspecified ADILENE,KIP K [place] Plan of Treatment: Future Appointments (+ 6 months) and Future Tests (+/- 45 days) The Plan of Treatment section includes future care activities for the patient [facility] [place] [facility] This section includes future appointments and future orders which are active, pending or scheduled. Future Appointments This section includes appointments that were scheduled to occur 6 months from the date of the Encounter, up to a maximum of 20 appointments. The data comes from all [facility] facilities. Appointment Date/Time Appointment Type Appointme nt Facility Name Oct 13, 2023 01:00 PM AMBULATORY - MEDICINE [facility] [place] [facility] October 16, 2023 01:00 PM AMBULATORY - MEDICINE [facility] [place] [facility] Dec 15, 2023 02:30 PM AMBULATORY - MEDICINE [facility] Dec 30, 2023 03:00 PM AMBULATORY - MEDICINE [facility] [place] [facility] Mar 02, 2024 03:00 PM AMBULATORY - MEDICINE [facility] Lab Results: +/- 30 days of the encounter This section includes the Chemistry and Hematology Lab Results on record with [place] for the patient. Radiology Reports and Pathology Reports are provided separately, in subsequent sections. Lab Results This section contains the Chemistry/Hematology Results that were resulted 30 days before or 30 daysafter the date of the Encounter. Date/Time Source Result Type Result - Unit Interpretation Reference Range Comment Sep 23, 2023 01:35 PM [place] COVID-19 FLU/RSV DIAGNOSTIC PANEL Speci men Type: NASOPHARYNX Comment: This test is authorized for emergency use only. False negative results may occur if virus is present at levels below the analytical limit of detection.Nega tive results do not preclude SARS-CoV-2, influenza or RSV infection and should not be used as the sole basis for treatment or other patient management decisions.[facility] mone FLUVID: HCPs: https://www.fd a.gov/media/ 1746/download. Patients: https://www.[employer] a.gov/media/ 494/download Ordering Provider: CHATO ADHIKARI Report Released Date/Time: Sep 23, 2023 01:14 PM Reporting Lab: [facility] [place] [address] [address] Performing Lab: [address] [address] COVID-19 PCR (FLUVID) NEGATIVE NEGATIVE FLU A PCR (FLUVID) NEGATIVE FLU B PCR (FLUVID) NEGATIVE RSV PCR (FLUVID) NEGATIVE Sep 16, 2023 01:56 PM [facility] HEMOGLOBIN A1C PANEL Specimen Type: BLOOD [...] Sep 16, 2023 01:09 PM Reporting Lab: [address] [address] Performing Lab: [address] [address] HEMOGLOBIN A1C 6.8 H 4.0-5.6 Sep 16, 2023 01:56 PM [facility] BASIC METABOLIC PANEL (non-fasting) Specimen Type: SERUM No comment entered. Ordering Provider: NIK GILL Report Released Date/Time: Sep 16, 2023 01:09 PM Reporting Lab: [address] [address] Performing Lab: [address] [address] U[place] NITROGEN 25 mg/dL 7-25 GLUCOSE 234 mg/dL H 65-100 SODIUM 140 mmol/L 135-145 POTASSIUM 5.0 mmol/L 3.5-5.0 CHLORIDE 106 mmol/L 100-110 CO2 23 meq/L 20-30 CREATININE, Serum 1.80 mg/dL H 0.50-1.40 eGFR(CKD-EPI 2020) 36 mL/min L >60 Sep 16, 2023 01:56 PM [facility] CBC Specimen Type: BLOOD No comment entered. Ordering Provider: NIK GILL Report Released Date/Time: Sep 16, 2023 01:09 PM Reporting Lab: [facility] [address] [address] Performing Lab: [facility] [address] [address] WBC 7.86 10*3/uL 4.50-11.00 RBC 4.28 10*6/uL [...] PM 97.3 93 138/74 18 96 0 [place] Social History: Smoking Status (Most current) and Tobacco Use (All prior to encounter date) This section includes the most current, and the historical, smoking and tobacco- related health factors from the [place] facility where the Encounter took place. Current Smoking Status This section includes the most current smoking, or tobacco-related health factor, from the [place] facility where the Encounter took place. Date/Time Current Smoking Status Comment [place] Apr 28, 2023 03:00 PM [place]-TOBACCO NEVER USED [place] Tobacco Use History This section includes a history of the smoking, or tobacco-related health factors, that were collected on or before the date of the Encounter. The data comes from the [place] facility where the Encounter took place. Date/Time Smoking Status/Tobacco Use Comment F acility Apr 09, 2021 10:00 AM VA-TOBACCO NEVER USED [place] Mar 13, 2020 12:30 PM VA-TOBACCO NEVER USED [place] Feb 02, 2018 02:02 PM VA-TOBACCO NEVER USED [place] Mar 10, 2017 01:57 PM LIFETIME NON-TOBACCO USER [place] Feb 11, 2016 02:44 PM LIFETIME NON-TOBACCO USER [place] May 09, 2009 09:43 AM LIFETIME NON-TOBACCO USER [place] Radiology Reports: +/- 30 days of the [...] the Encounter. The data comes from all [place] treatment facilities. Date/Time Radiology Report Provider Source Sep 24, 2023 03:11 PM CHEST (2 VIEWS): ORLY LEAVITT [id number] -[id number] M Exm Date: SEP 24, 2023@15:11 Req Phys: CHATO ADHIKARI Loc: CWM/SO/SICK CALL LEATHER COLORER (Req'g Loc Img Loc[facility] Service: Unknown (Case [id number] COMPLETE) CHEST (2 VIEWS) (RAD Detailed) CPT:81449 Reason for Study: wheezing, cough, SOB Clinical History: Covering resident, fellow, LEATHER COLORER or attending: Chato Adhikari NP [place] Pager: [phone] Backup pager: History: Report Status: Verified Date Reported: SEP 24, 2023 Date Verified: SEP 24, 2023 Broadcast Designer E-Sig:/ES/LATRICE DUNBAR JR Report: Study: PA and [...] Primary Interpreting Staff: LATRICE DUNBAR JR, Radiologist (Broadcast Designer) /LATRICE BAGLEY JR [place] [facility] [place] [facility] Encounter Notes: All associated encounter notes This section contains the clinical notes associated to the Encounter. Date/Time Encounter Note(s) Provider Source Sep 30, 2023 03:44 PM PRIMARY CARE NOTE: LOCAL TITLE: WALK-IN NOTE PRIMARY CARE (T) STANDARD TITLE: PRIMARY CARE NOTE DATE OF NOTE: SEP 30, 2023@15:44 ENTRY DATE: SEP 30, 2023@15:44:40 AUTHOR: KIP HEAD COSIGNER: URGENCY: STATUS: COMPLETED WALK-IN NOTE PRIMARY CARE (T) Has ADDENDA Data: 88year old MALE [place] reports to Primary Care clinic for Walk-In visit. 's PCP is MARGARITA FLOREZ, Today Vet walks in to clinic requesting a recheck of current condition. Last recorded Vital Signs are: Temperature:97.3 F [36.3 C] (09/30/2023 15:32) Pulse:93 (09/30/2023 15:32) Blood Pressure:138/74 (09/30/2023 15:32) Respiration:18 (09/30/2023 15:32) Pain:0 (09/30/2023 15:32) Vet reports current allergies are: Remote Allergy Data No Remote Allergy/ADR Data available for this patient Current Medications from Active Med list include: Active Outpatient Medications (including Supplies): Active Outpatient Medications Status = 1) ACCU-CHEK GUIDE (GLUCOSE) TEST STRIP USE 1 STRIP TO ACTIVE TEST BLOOD SUGARS TWICE DAILY 2) AEROCHAMBER Z-STAT PLUS USE CHAMBER EVERY 6 HOURS ACTIVE NEEDED WITH ALBUTEROL INHALER 3) ALBUTEROL 90MCG (CFC-F) 200D ORAL INHL INHALE 1 TO 2 ACTIVE PUFFS BY MOUTH EVERY 6 HOURS NEEDED FOR BRONCHOSPASM 4) ALLOPURINOL 100MG TAB TAKE ONE TABLET BY MOUTH TWICE ACTIVE DAILY FOR GOUT 5) AMLODIPINE BESYLATE 5MG TAB TAKE ONE TABLET BY MOUTH ACTIVE (S) ONCE DAILY FOR BLOOD PRESSURE/HEART, DO NOT TAKE WITH GRAPEFRUIT JUICE 6) AMOXICILLIN 500MG CAP TAKE ONE CAPSULE BY MOUTH TWICE ACTIVE DAILY 7) CARBOXYMETHYLCELLULOSE NA 0.5% OPH SOLN INSTILL 1 ACTIVE DROP INTO EACH EYE FOUR TIMES DAILY NEEDED FOR DRY EYE 8) CLOPIDOGREL BISULFATE 75MG TAB TAKE ONE TABLET BY ACTIVE MOUTH ONCE DAILY TO PREVENT BLOOD CLOTS 9) DM 10/GUAIFENESN 100MG/5ML (AF & SF) LIQ TAKE 10 MLS ACTIVE BY MOUTH EVERY 6 HOURS NEEDED FOR COUGH 10) FENOFIBRATE 145MG TAB TAKE ONE TABLET BY MOUTH AT ACTIVE (S) BEDTIME TO LOWER CHOLESTEROL 11) FUROSEMIDE 20MG TAB TAKE ONE TABLET BY MOUTH ONCE ACTIVE DAILY TO REMOVE FLUID/CONTROL BLOOD PRESSURE 12) GABAPENTIN 300MG CAP TAKE ONE CAPSULE BY MOUTH AT ACTIVE BEDTIME 13) GLUCOSE SENSOR DEXCOM G7 USE 1 SENSOR DIRECTED ACTIVE EVERY 10 DAYS 14) INSULIN SYRINGE 0.5ML 30G 12MM USE 1 SYRINGE ACTIVE SUBCUTANEOUSLY TWICE DAILY FOR INSULIN INJECTIONS 15) INSULIN,ASPART,HUMAN 70/30 NOVOLOG INJ INJECT 24 ACTIVE UNITS SUBCUTANEOUSLY EVERY MORNING AND INJECT 20 UNITS EVERY EVENING 16) LANCET,SOFTCLIX USE 1 LANCET TOPICALLY ONCE DAILY TO ACTIVE TEST BLOOD SUGAR 17) LUBRICATING (PF) OPH OINT APPLY THIN RIBBON INTO EACH ACTIVE EYE AT BEDTIME 18) MAGNESIUM OXIDE 420MG TAB TAKE ONE TABLET BY MOUTH ACTIVE TWICE DAILY FOR MAGNESIUM SUPPLEMENTATION 19) METFORMIN HCL 500MG 24HR SA TAB TAKE TWO TABLETS BY ACTIVE MOUTH ONCE DAILY 20) METOPROLOL SUCCINATE 100MG SA TAB TAKE ONE TABLET BY ACTIVE (S) MOUTH ONCE DAILY FOR BLOOD PRESSURE/HEART 21) NIACIN (SLO-NIACIN) 750MG TAB,SA TAKE ONE TABLET BY HOLD MOUTH TWICE DAILY 22) OMEPRAZOLE 20MG EC CAP TAKE ONE CAPSULE BY MOUTH ACTIVE TWICE DAILY 23) PREDNISONE 50MG TAB TAKE ONE TABLET BY MOUTH ONCE ACTIVE DAILY FOR BRONCHITIS 24) SEMAGLUTIDE 1MG/0.75ML INJ PEN 3ML INJECT 1MG ACTIVE SUBCUTANEOUSLY ONCE A WEEK FOR TYPE 2 DIABETES MELLITUS 25) SIMVASTATIN 80MG TAB TAKE ONE-HALF TABLET BY MOUTH ACTIVE (S) ONCE DAILY FOR CHOLESTEROL 26) SKIN BARRIER WIPE TORBOT SKIN TAC USE 1 WIPE ACTIVE TOPICALLY EVERY 10 DAYS Active Non-VA Medications Status = 1) Non-VA ASPIRIN 81MG EC TAB 81MG BY MOUTH DAILY ACTIVE 2) Non-VA CHOLECALCIF 25MCG (D3-1,000UNIT) TAB 25MCG BY ACTIVE MOUTH ONCE DAILY 3) Non-VA CYANOCOBALAMIN 250MCG TAB 250MCG BY MOUTH ONCE ACTIVE DAILY 4) Non-VA FERROUS GLUCONATE 324MG TAB 324MG BY MOUTH ACTIVE EVERY 48 HOURS 5) Non-VA FISH OIL 1000MG (500MG DHA/EPA) CAP 1000MG BY ACTIVE MOUTH DAILY 6) Non-VA INSULIN,ASPART,HUMAN 70/30 NOVOLOG INJ 16 ACTIVE UNITS SUBCUTANEOUSLY 32 Total Medications Action: in clinic for podiatry visit. Checked into sick call requesting to have lungs checked. [place] here with daughter Mindi Daughter states dad continues with cough. [place] states he feels better but continues with coughing recent cough medication now gone, requesting more Recently started on antibiotic this Thursday. Denies dyspnea LS with scattered wheeze, rales left lower lung O2 sat 96% on room air Advised to continue antibiotic as ordered, rest and hydrate. will request refill of cough medication Advised to increase use of incentive spirometer. Verbalized understanding. Reminders Advance Directive Screen MH AD May 07 Medication Reconciliation DUE NOW COVID-19 Immunization DUE NOW /radhames/ KIP HEAD RN PRIMARY CARE RN Signed: 09/30/2023 15:52 10/01/2023 ADDENDUM STATUS: COMPLETED request for cough medications discussed with provider. reorder placed and new order for benzonatate. Message left with daughter updating on new orders and she can pick it up any time. /radhames/ KIP HEAD RN PRIMARY CARE RN Signed: 10/01/2023 09:54 KIP HEAD [place]
--- OUTSIDE RECORDS SUMMARY | 2024-05-24 13:13 | XMS_ITS | Encounter Summary ---
Author Name Department of Vetera Affairs ([place]) Organization Department of Vetera Affairs ([place]) Address [address] [place] [address] Care Team Providers Care Rn Lactation Consultant Name Role Phone MARGARITA FLOREZ Primary [...] Policy Bejarano [place] [facility] Dec 13, 2013 [id number] DAGMAR,ZIA ERT PATIENT [place]BS [place] MEDICARE SUPPLEMEN [facility] November 06, 2007 [id number] DAGMAR,ZIA ERT PATIENT [place]BS [place] MEDICARE SUPPLEMEN [facility] 2 November 06, 2007 [id number] DAGMAR,ZIA ERT PATIENT [place] MED[place] SUPPLEMEN [facility] 2 November 06, 2007 [id number] [phone] DAGMAR,ZIA ERT PATIENT BCBS OF [facility] MEDICARE SUPPLEMEN [facility] Dec 13, 2013 [id number] DAGMAR,ZIA ERT PATIENT [place] SUPPLEMEN [facility] MMHG/ WHITM AN/MX Dec 13, 2008 [id number] DAGMAR,ZIA ERT PATIENT MEDICARE (WNR) MEDICARE () PART B May 15, 2012 PART B [id number] DAGMAR,ZIA ERT PATIENT MEDICARE (WNR) MEDICARE () PART A May 15, 2002 PART A [id number] DAGMAR,ZIA ERT PATIENT MEDICARE (WNR) MEDICARE (M) PART B May 15, 2002 PART B [id number] DAGMAR,ZIA ERT PATIENT MEDICARE (WNR) MEDICARE () PART A May 15, 2002 PART A [id number] DAGMAR,ZIA ERT PATIENT MEDICARE (WNR) MEDICARE () PART B May 15, 2002 PART B [id number] [phone] DAGMAR,ZIA ERT PATIENT MEDICARE (WNR) MEDICARE () PART B May 15, 2002 PART B [id number] DAGMAR,ZIA ERT PATIENT MEDICARE (WNR) MEDICARE () PART A May 15, 2002 PART A [id number] DAGMAR,ZIA ERT PATIENT MEDICARE (WNR) MEDICARE () PART A May 15, 2002 PART A [id number] DAGMAR,ZIA ERT PATIENT Selected Encounter This section includes the information on record at [place] for the Encounter. Date/Time Encounter Type Encounter Description Reason Pro vider Source Sep 30, 2023 03:14 PM Outpatient Encounter PRIMARY CARE/MEDICINE I[facility] Encounter Template Text not used by [place] Plan of Treatment: Future Appointments (+ 6 [...] 20 appointments. The data comes from all ID treatment facilities. Appointment Date/Time Appointment Type Appointme nt Facility Name Oct 13, 2023 01:00 PM AMBULATORY - MEDICINE [facility] October 16, 2023 01:00 PM AMBULATORY - MEDICINE [facility] Dec 15, 2023 02:30 PM [facility]ATORY - MEDICINE [facility] Dec 30, 2023 03:00 PM AMBULATORY - MEDICINE [facility] Mar 02, 2024 03:00 PM [facility] Lab Results: +/- 30 days of the encounter This section includes the Chemistry and Hematology Lab Results on record with ID for the patient. Radiology Reports and Pathology Reports are provided separately, in subsequent sections. Lab Results This section contains the Chemistry/Hematology Results that were resulted 30 days before or 30 daysafter the date of the Encounter. Date/Time Source Result Type Result - Unit Interpretation Reference Range Comment Sep 23, 2023 01:35 PM [place] COVID-19 FLU/RSV DIAGNOSTIC PANEL Speci men Type: NASOPHARYNX Comment: This test is authorized for emergency use only. False negative results may occur if virus is present at levels below the analytical limit of detection.Nega tive results do not preclude SARS-CoV-2, influenza or RSV infection and should not be used as the sole basis for treatment or other patient management decisions.[facility] mone FLUVID: HCPs: https://www.fd a.gov/media/ 4864/download. Patients: https://www.fd a.gov/media/ 022/download Ordering Provider: CHATO ADHIKARI Report Released Date/Time: Sep 23, 2023 01:14 PM Reporting Lab: [address] [address] Performing Lab: [address] [address] COVID-19 PCR (FLUVID) NEGATIVE NEGATIVE FLU A PCR (FLUVID) NEGATIVE FLU B PCR (FLUVID) NEGATIVE RSV PCR (FL[place]) NEGATIVE Sep 16, 2023 01:56 PM [facility] HEMOGLOBIN A1C PANEL Specimen Type: [...] Sep 16, 2023 01:09 PM Reporting Lab: [address] [address] Performing Lab: [address] [address] HEMOGLOBIN A1C 6.8 H 4.0-5.6 Sep 16, 2023 01:56 PM [facility] BASIC METABOLIC PANEL (non-fasting) Specimen Type: SERUM No comment entered. Ordering Provider: NIK GILL Report Released Date/Time: Sep 16, 2023 01:09 PM Reporting Lab: [address] [address] Performing Lab: [address] [address] UREA NITROGEN 25 mg/dL 7-25 GLUCOSE 234 mg/dL H 65-100 SODIUM 140 mmol/L 135-145 POTASSIUM 5.0 mmol/L 3.5-5.0 CHLORIDE 106 mmol/L 100-110 CO2 23 meq/L 20-30 CREATININE, Serum 1.80 mg/dL H 0.50-1.40 eGFR(CKD-EPI 2020) 36 mL/min L >60 Sep 16, 2023 01:56 PM [facility] CBC Specimen Type: BLOOD No comment entered. Ordering Provider: NIK GILL Report Released Date/Time: Sep 16, 2023 01:09 PM Reporting Lab: [address] [address] Performing Lab: [address] [address] WBC 7.86 10*3/uL 4.50-11.00 RBC 4.28 10*6/uL [...] and tobacco- related health factors from the ID facility where the Encounter took place. Current Smoking Status This section includes the most current smoking, or tobacco-related health factor, from the ID facility where the Encounter took place. Date/Time Current Smoking Status Comment Facil ity Apr 15, 2022 01:00 PM VA-TOBACCO NEVER USED [place] [facility] [place] [facility] Radiology Reports: +/- 30 days of [...] the Encounter. The data comes from all [place] treatment facilities. Date/Time Radiology Report Provider Source Sep 24, 2023 03:11 PM CHEST (2 VIEWS): DAGMARORLY CATHY [id number] -[id number] Ex Date: SEP 24, 2023@15:11 Req Phys: CHATO ADHIKARI Loc: CWM/SO/SICK CALL PRICE ACCURACY SUPERVISOR (Req'g Loc Img Loc: [facility] 1 Service: Unknown (Case [id number] COMPLETE) CHEST (2 VIEWS) (RAD Detailed) CPT:09978 Reason for Study: wheezing, cough, SOB Clinical History: Covering resident, fellow, PRICE ACCURACY SUPERVISOR or attending: Chato Adhikari NP [place] Pager: [phone] Backup pager: History: Report Status: Verified Date Reported: SEP 24, 2023 Date Verified: SEP 24, 2023 [employer] E-Sig:/ES/LATRICE DUNBAR JR Report: Study: PA and [...] Primary Interpreting Staff: LATRICE DUNBAR JR, Radiologist ([employer]) /LATRICE BAGLEY JR [facility] WSN [facility] Encounter Notes: All associated encounter notes This section contains the clinical notes associated to the Encounter. Date/Time Encounter Note(s) Provider Source Sep 30, 2023 03:14 PM PRIMARY CARE NOTE: LOCAL TITLE: WALK-IN NOTE PRIMARY CARE (T) STANDARD TITLE: PRIMARY CARE NOTE DATE OF NOTE: SEP 30, 2023@15:14 ENTRY DATE: SEP 30, 2023@15:14:39 AUTHOR: JEAN PAUL CHOWDHURY EXP COSIGNER: URGENCY: STATUS: COMPLETED <====Click to Start Advanced Medical Support presents to the Primary Care clinic with the following request: [ ]Medication Renewal/Refill [ ]Consultation with Team RN [ ]SymptomsSOB [ ]Other The states they are: [ X ]Waiting [ ]Not Waiting Yes Walk in visit scheduled with PACT Nurse [ X ] At this encounter the 's demographics were verified. [ X ] At this encounter the [place]'s Insurance information was verified. [ X ] At this encounter the below scheduled visits for the were discussed and appointment reminder card was offered. Future appointments: 09/30/2023 15:15 CWM/SO/SICK RN 10/13/2023 13:00 NHM/OPTOMETRY/[place] 10/16/2023 13:00 CWM/NO/COMP PEN AUDIO 12/15/2023 14:30 CWM/SO/PACT 5 12/30/2023 15:00 CWM/SO/PHARM/PACT 2 [place] here for walk-in sick call for SOB. /radhames/ JEAN PAUL SOTO Signed: 09/30/2023 15:15 Receipt Acknowledged By: 10/01/2023 14:22 /es/ LENNOX PEARCE RN REGISTERED NURSE 09/30/2023 15:53 /es/ KIP HEAD RN PRIMARY CARE RN JEAN PAUL CHOWDHURY
--- OUTSIDE RECORDS SUMMARY | 2024-05-24 13:13 | XMS_ITS | Encounter Summary ---
Author Name [place] Address [address] [place] [address] Care Team Providers Care Writing Center Director Name Role Phone MARGARITA FLOREZ Primary [...] Relationship to Policy Bejarano ALVA BCBS OF [place] [facility]IC[facility] Dec 13, 2013 [id number] DAGMAR,ZIA ERT PATIENT BCBS [place] MEDICARE SUPPLEMEN [facility] November 06, 2007 [id number] DAGMAR,ZIA ERT PATIENT [place]BS [place] MED[place] SUPPLEMEN [facility] 2 November 06, 2007 [id number] [phone] DAGMAR,ZIA ERT PATIENT [place] SUPP[place] [facility] 2 November 06, 2007 [id number] DAGMAR,ZIA ERT PATIENT BCBS OF [facility] Dec 13, 2013 [id number] [phone] DAGMAR,ZIA ERT PATIENT [place] SUPP[place]MEN [facility] MMHG/ WHITM AN/MX Dec 13, 2008 [id number] DAGMAR,ZIA ERT PATIENT MEDICARE (WNR) MEDICARE () PART B May 15, 2012 PART B [id number] DAGMAR,ZIA ERT PATIENT MEDICARE (WNR) MEDICARE () PART A May 15, 2002 PART A [id number] DAGMAR,ZIA ERT PATIENT MEDICARE (WNR) MEDICARE () PART B May 15, 2002 PART B [id number] [phone] DAGMAR,ZIA ERT PATIENT MEDICARE (WNR) MEDICARE () PART A May 15, 2002 PART A [id number] [phone] DAGMAR,ZIA ERT PATIENT MEDICARE (WNR) MEDICARE () PART B May 15, 2002 PART B [id number] [phone] DAGMAR,ZIA ERT PATIENT MEDICARE (WNR) MEDICARE () PART B May 15, 2002 PART B [id number] DAGMAR,ZIA ERT PATIENT MEDICARE (WNR) MEDICARE () PART A May 15, 2002 PART A [id number] [phone] DAGMAR,ZIA ERT PATIENT MEDICARE (WNR) MEDICARE () PART A May 15, 2002 PART A [id number] DAGMAR,ZIA ERT PATIENT Selected Encounter This section includes the information on record at [place] for the Encounter. Date/Time Encounter Type Encounter Description Reason Provider Source Sep 18, 2023 10:30 AM GAIT TRAINING THERAPY PHYSICAL THERAPY ICD-10-CM R26.9 Unspecified abnormalities of gait and mobility BHARATH AREVALO Grecia Encounter Template Text not used by [facility] Assessments - Encounter Diagnoses This section includes the primary and secondary diagnoses documented for the Encounter. Date/Time Primary/Secondary Diagnosis Diagnosis Name Provider Source Oct 10, 2023 07:21 AM PRIMARY Unspecified abnormalities of gait and mobility BEBETO AREVALO [place] Plan of Treatment: Future Appointments (+ 6 months) and Future Tests (+/- 45 days) The Plan of Treatment section includes future care activities for the patient from all [place] [facility]. This section includes future appointments and future orders which are active, pending or scheduled. Future Appointments This section includes appointments that were scheduled to occur 6 months from the date of the Encounter, up to a maximum of 20 appointments. The data comes from all [facility] facilities. Appointment Date/Time Appointment Type Appointme nt Facility Name Sep 23, 2023 01:00 PM [facility], [facility]23 01:15 PM [facility] Sep 30, 2023 03:00 PM [facility] Sep 30, 2023 03:15 PM [facility] Oct 13, 2023 01:00 PM [facility] October 16, 2023 01:00 PM [facility] Dec 15, 2023 02:30 PM [facility] Dec 30, 2023 03:00 PM [facility] Mar 02, 2024 03:00 PM [facility] Lab Results: +/- 30 days of the encounter This section includes the Chemistry and Hematology Lab Results on record with [place] for the patient. Radiology Reports and Pathology Reports are provided separately, in subsequent sections. Lab Results This section contains the Chemistry/Hematology Results that were resulted 30 days before or 30 daysafter the date of the Encounter. Date/Time Source Result Type Result - Unit Interpretation Reference Range Comment Sep 23, 2023 01:35 PM [place] COVID-19 FLU/RSV DIAGNOSTIC PANEL Speci men Type: NASOPHARYNX Comment: This test is authorized for emergency use only. False negative results may occur if virus is present at levels below the analytical limit of detection.Nega tive results do not preclude SARS-CoV-2, influenza or RSV infection and should not be used as the sole basis for treatment or other patient management decisions.[facility] mone FLUVID: HCPs: https://www.fd a.gov/media/ 6448/download. Patients: https://www.[place] a.gov/media/ 2758/download Ordering Provider: CHATO ADHIKARI Report Released Date/Time: Sep 23, 2023 01:14 PM Reporting Lab: [facility] [address] [address] Performing Lab: [address] [address] COVID-19 PCR (FLUVID) NEGATIVE NEGATIVE FLU A PCR (FLUVID) NEGATIVE FLU B PCR (FLUVID) NEGATIVE RSV PCR (FLUVID) NEGATIVE Sep 16, 2023 01:56 PM [facility] HEMOGLOBIN A1C PANEL Specimen Type: BLOOD [...] Sep 16, 2023 01:09 PM Reporting Lab: [address] [address] Performing Lab: [address] [address] HEMOGLOBIN A1C 6.8 H 4.0-5.6 Sep 16, 2023 01:56 PM [facility] BASIC METABOLIC PANEL (non-fasting) Specimen Type: SERUM No comment entered. Ordering Provider: NIK GILL Report Released Date/Time: Sep 16, 2023 01:09 PM Reporting Lab: [address] [address] Performing Lab: [address] [address] UREA NITROGEN 25 mg/dL 7-25 GLUCOSE 234 mg/dL H 65-100 SODIUM 140 mmol/L 135-145 POTASSIUM 5.0 mmol/L 3.5-5.0 CHLORIDE 106 mmol/L 100-110 CO2 23 meq/L 20-30 CREATININE, Serum 1.80 mg/dL H 0.50-1.40 eGFR(CKD-EPI 2020) 36 mL/min L >60 Sep 16, 2023 01:56 PM [facility] CBC Specimen Type: BLOOD No comment entered. Ordering Provider: NIK GILL Report Released Date/Time: Sep 16, 2023 01:09 PM Reporting Lab: [facility] [address] [address] Performing Lab: [facility] [address] [address] WBC 7.86 10*3/uL 4.50-11.00 RBC 4.28 10*6/uL [...] and tobacco- related health factors from the [place] facility where the Encounter took place. Current Smoking Status This section includes the most current smoking, or tobacco-related health factor, from the [place] facility where the Encounter took place. Date/Time Current Smoking Status Comment Jesus fall Apr 28, 2023 03:00 PM [place]-TOBACCO NEVER USED [place] Tobacco Use History This section includes a history of the smoking, or tobacco-related health factors, that were collected on or before the date of the Encounter. The data comes from the [place] facility where the Encounter took place. Date/Time Smoking Status/Tobacco Use Comment F acility Apr 09, 2021 10:00 AM [place]-TOBACCO NEVER USED [place] Mar 13, 2020 12:30 PM VA-TOBACCO NEVER USED [place] Feb 02, 2018 02:02 PM VA-TOBACCO NEVER USED [place] Mar 10, 2017 01:57 PM LIFETIME NON-TOBACCO USER [place] Feb 11, 2016 02:44 PM LIFETIME NON-TOBACCO USER [place] May 09, 2009 09:43 AM LIFETIME NON-TOBACCO USER [place] Radiology Reports: +/- 30 days of the [...] the Encounter. The data comes from all [place] treatment facilities. Date/Time Radiology Report Provider Source Sep 24, 2023 03:11 PM CHEST (2 VIEWS): ORLY LEAVITT [id number] -[id number] M Exm Date: SEP 24, 2023@15:11 Req Phys: CHATO ADHIKARI Loc: CWM/SO/SICK CALL ASPARAGUS CUTTER (Req'g Loc Img Loc: [facility] 1 Service: Unknown (Case [id number] COMPLETE) CHEST (2 VIEWS) (RAD Detailed) CPT:65569 Reason for Study: wheezing, cough, SOB Clinical History: Covering resident, fellow, ASPARAGUS CUTTER or attending: Chato Adhikari NP [place] Pager: [phone] Backup pager: History: Report Status: Verified Date Reported: SEP 24, 2023 Date Verified: SEP 24, 2023 [facility] E-Sig:/ES/LATRICE DUNBAR JR Report: Study: PA and [...] Interpreting Staff: LATRICE DUNBAR JR, Radiologist ([facility]) /LATRICE BAGLEY JR [place] [facility] Encounter Notes: All associated encounter notes This section contains the clinical notes associated to the Encounter. Date/Time Encounter Note(s) Provider Source Sep 18, 2023 10:56 AM PHYSICAL THERAPY C ONSULT: LOCAL TITLE: PHYSICAL THERAPY CONSULT STANDARD TITLE: PHYSICAL THERAPY CONSULT DATE OF NOTE: SEP 18, 2023@10:56 ENTRY DATE: SEP 18, 2023@10:56:55 AUTHOR: LEE AREVALO COSIGNER: URGENCY: STATUS: COMPLETED PROSTHETIC CHECKOUT- Physical Therapy Referring physician: GAUTAM Dx: Unspecified Abnormalities of Gait and Mobility (ICD-10-CM R26.9) (Primary) Treatment time: 15 min Pt was issued: Single point cane. Sized and trained on device (x) Pt is I and safe with use of equipment () Pt requires assistance: () Pt was educated to use, care, and safety of the equipment and demonstrated/verbalized understanding of same. (x) Pt was issued manual or written instructions. (x) Suggested pt call this therapist with any questions. (x) Goal of safe use of equipment met. No further services provided at this time. () Other: /radhames/ LEE AREVALO DPT Physical Therapist Signed: 09/18/2023 10:58 LEE AREVALO [facility]
--- OUTSIDE RECORDS SUMMARY | 2024-05-24 13:13 | XMS_ITS | Encounter Summary ---
Author Name [place] Organization [place] Address [address] [place] [address] Care Team Providers Care Group Director Experience Name Role Phone MARGARITA FLOREZ Primary Care [...] Relationship to Policy Bejarano ALVA [place] [facility] Dec 13, 2013 [id number] [phone] DAGMAR,ZIA ERT PATIENT [place] MED[place]ARE SUPPLEMEN [facility] November 06, 2007 [id number] DAGMAR,ZIA ERT PATIENT [place] SUPP[place]MEN [facility] MED[facility] 2 November 06, 2007 [id number] [phone] DAGMAR,ZIA ERT [place] [facility] MED[place] 2 November 06, 2007 [id number] [phone] DAGMAR,ZIA ERT PATIENT BCBS OF [facility] MEDICARE SUPPLEMEN [facility] Dec 13, 2013 [id number] DAGMAR,ZIA ERT PATIENT [place] SUPP[place]MEN [facility] MMHG/ WHITM AN/MX Dec 13, 2008 [id number] DAGMAR,ZIA ERT PATIENT MEDICARE (WNR) MEDICARE () PART B May 15, 2012 PART B [id number] DAGMAR,ZIA ERT PATIENT MEDICARE (WNR) MEDICARE () PART A May 15, 2002 PART A [id number] DAGMAR,ZIA ERT PATIENT MEDICARE (WNR) MEDICARE (M) PART A May 15, 2002 PART A [id number] [phone] DAGMAR,ZAI ERT PATIENT MEDICARE (WNR) MEDICARE () PART B May 15, 2002 PART B [id number] DAGMAR,ZIA ERT PATIENT MEDICARE (WNR) MEDICARE () PART B May 15, 2002 PART B [id number] DAGMAR,ZIA ERT PATIENT MEDICARE (WNR) MEDICARE () PART A May 15, 2002 PART A [id number] [phone] DAGMAR,ZIA ERT PATIENT MEDICARE (WNR) MEDICARE () PART B May 15, 2002 PART B [id number] [phone] DAGMAR,ZIA ERT PATIENT MEDICARE (WNR) MEDICARE () PART A May 15, 2002 PART A [id number] DAGMAR,ZIA ERT PATIENT Selected Encounter This section includes the information on record at [place] for the Encounter. Date/Time Encounter Type Encounter Description Reason Pro vider Source Sep 23, 2023 12:51 PM Outpatient Encounter PRIMARY CARE/MEDICINE [facility] Encounter [...] 20 appointments. The data comes from all [place] treatment facilities. Appointment Date/Time Appointment Type Appointme nt Facility Name Sep 30, 2023 03:00 PM [facility] Sep 30, 2023 03:15 PM [facility] [place] Oct 13, 2023 01:00 PM [facility] October 16, 2023 01:00 PM [facility] [place] [facility] [place] [facility] Dec 15, 2023 02:30 PM [facility] [place] Dec 30, 2023 03:00 PM [facility] [place] [facility] [place] [facility] Mar 02, 2024 03:00 PM [facility] Lab Results: +/- 30 days of the encounter This section includes the Chemistry and Hematology Lab Results on record with [place] for the patient. Radiology Reports and Pathology Reports are provided separately, in subsequent sections. Lab Results This section contains the Chemistry/Hematology Results that were resulted 30 days before or 30 daysafter the date of the Encounter. Date/Time Source Result Type Result - Unit Interpretation Reference Range Comment Sep 23, 2023 01:35 PM [place] COVID-19 FLU/RSV DIAGNOSTIC PANEL Speci men Type: NASOPHARYNX Comment: This test is authorized for emergency use only. False negative results may occur if virus is present at levels below the analytical limit of detection.Nega tive results do not preclude SARS-CoV-2, influenza or RSV infection and should not be used as the sole basis for treatment or other patient management decisions.[facility] mone FLUVID: HCPs: https://www.fd a.gov/media/ 0621/download. Patients: https://www.fd a.gov/media/ 1720/download Ordering Provider: CHATO ADHIKARI Report Released Date/Time: Sep 23, 2023 01:14 PM Reporting Lab: [address] [address] Performing Lab: [address] [address] COVID-19 PCR (FLUVID) NEGATIVE NEGATIVE FLU A PCR (FLUVID) NEGATIVE FLU B PCR (FLUVID) NEGATIVE RSV PCR (FLUVID) NEGATIVE Sep 16, 2023 01:56 PM [facility] HEMOGLOBIN A1C PANEL Specimen Type: BLOOD [...] Sep 16, 2023 01:09 PM Reporting Lab: [address] [address] Performing Lab: [address] [address] HEMOGLOBIN A1C 6.8 H 4.0-5.6 Sep 16, 2023 01:56 PM [facility] BASIC METABOLIC PANEL (non-fasting) Specimen Type: SERUM No comment entered. Ordering Provider: NIK GILL Report Released Date/Time: Sep 16, 2023 01:09 PM Reporting Lab: [address] [address] Performing Lab: [address] [address] UREA NITROGEN 25 mg/dL 7-25 GLUCOSE 234 mg/dL H 65-100 SODIUM 140 mmol/L 135-145 POTASSIUM 5.0 mmol/L 3.5-5.0 CHLORIDE 106 mmol/L 100-110 CO2 23 meq/L 20-30 CREATININE, Serum 1.80 mg/dL H 0.50-1.40 eGFR(CKD-EPI 2020) 36 mL/min L >60 Sep 16, 2023 01:56 PM [facility] CBC Specimen Type: BLOOD No comment entered. Ordering Provider: NIK GILL Report Released Date/Time: Sep 16, 2023 01:09 PM Reporting Lab: [address] [address] Performing Lab: [facility] [address] [address] WBC 7.86 10*3/uL 4.50-11.00 RBC 4.28 10*6/uL [...] and tobacco- related health factors from the [place] facility where the Encounter took place. Current Smoking Status This section includes the most current smoking, or tobacco-related health factor, from the [place] facility where the Encounter took place. Date/Time Current Smoking Status Comment Facil ity Apr 15, 2022 01:00 PM VA-TOBACCO NEVER USED [facility] Radiology Reports: +/- 30 days of the [...] the Encounter. The data comes from all [place] treatment facilities. Date/Time Radiology Report Provider Source Sep 24, 2023 03:11 PM CHEST (2 VIEWS): ORLY LEAVITT [id number] -[id number] M Ex Date: SEP 24, 2023@15:11 Req Phys: CHATO ADHIKARI Loc: CWM/SO/SICK CALL PASSENGER VESSEL CHEF (Req'g Loc Img Loc: [facility] 1 Service: Unknown (Case [id number] COMPLETE) CHEST (2 VIEWS) (RAD Detailed) CPT:37420 Reason for Study: wheezing, cough, SOB Clinical History: Covering resident, fellow, PASSENGER VESSEL CHEF or attending: Chato Adhikari NP [place] Pager: [phone] Backup pager: History: Report Status: Verified Date Reported: SEP 24, 2023 Date Verified: SEP 24, 2023 Binder Selector E-Sig:/ES/LATRICE DUNABR JR Report: Study: PA and lateral chest [...] Primary Interpreting Staff: LATRICE DUNBAR JR, Radiologist (Binder Selector) /LATRICE BAGLEY JR [facility] Encounter Notes: All associated encounter notes This section contains the clinical notes associated to the Encounter. Date/Time Encounter Note(s) Provider Source Sep 23, 2023 12:51 PM PRIMARY CARE NOTE: LOCAL TITLE: WALK-IN NOTE PRIMARY CARE (T) STANDARD TITLE: PRIMARY CARE NOTE DATE OF NOTE: SEP 23, 2023@12:51 ENTRY DATE: SEP 23, 2023@12:52:33 AUTHOR: KLEBER CYR EXP COSIGNER: URGENCY: STATUS: COMPLETED <====Click to Start Advanced Medical Support [place] presents to the Primary Care clinic with the following request: [ ]Medication Renewal/Refill [ ]Consultation with Team RN [ X ]Symptoms [ ]Other The [place] states they are: [ X ]Waiting [ ]Not Waiting Yes Walk in visit scheduled with PACT Nurse [ X ] At this encounter the 's demographics were verified. [ X ] At this encounter the [place]'s Insurance information was verified. [ X ] At this encounter the below scheduled visits for the were discussed and appointment reminder card was offered. Future appointments: 09/30/2023 13:00 CWM/NO/COMP PEN AUDIO 09/30/2023 15:00 CWM/SO/PODIATRY/ROSS 10/13/2023 13:00 NHM/OPTOMETRY/DALE 12/15/2023 14:30 CWM/SO/PACT 5 12/30/2023 15:00 CWM/SO/PHARM/PACT 2 is here with cold symptoms, cough, sore throat and congesetion. /es/ KLEBER CYR ADVANCED ICE GUARD TESTER Signed: 09/23/2023 12:53 Receipt Acknowledged By: 09/23/2023 12:59 /es/ SARTHAK TIDWELLN,RN-BC REGISTERED NURSE (RN) for LENNOX PEARCE 09/23/2023 13:03 /es/ CHATO ADHIKARI APRN-[place] CERTIFIED NURSE PRACTITIONER 09/23/2023 14:46 /es/ KIP HEAD, OYSTER PICKER RN KLEBER CYR
--- OUTSIDE RECORDS SUMMARY | 2024-05-24 13:13 | XMS_ITS | Encounter Summary ---
Author Name [facility] [facility] [place] [facility] [place] Address [address] [place] [address] Care Team Providers Care Solution Sales Senior Executive Name Role Phone MARGARITA FLOREZ Primary Care [...] Policy Bejarano [place] [facility] Dec 13, 2013 [id number] DAGMAR,ZIA ERT [place] SUPPLEMEN [facility] November 06, 2007 [id number] [phone] DAGMAR,IZA ERT [place] SUPPLEMEN [facility] November 06, 2007 [id number] DAGMAR,ZIA ERT [place] SUPP[place] [facility] 2 November 06, 2007 [id number] [phone] DAGMAR,ZIA ERT PATIENT BCBS OF [facility] MEDICARE SUPPLEMEN [facility] Dec 13, 2013 [id number] [phone] DAGMAR,ZIA ERT PATIENT [place] SUPPLEMEN [facility]/ [facility] AN/MX Dec 13, 2008 [id number] [phone] DAGMAR,ZIA ERT PATIENT MEDICARE (WNR) MEDICARE () PART B May 15, 2012 PART B [id number] DAGMAR,ZIA ERT PATIENT MEDICARE (WNR) MEDICARE () PART A May 15, 2002 PART A [id number] DAGMAR,ZIA ERT PATIENT MEDICARE (WNR) MEDICARE () PART B May 15, 2002 PART B [id number] [phone] DAGMAR,ZIA ERT PATIENT MEDICARE (WNR) MEDICARE () PART A May 15, 2002 PART A [id number] DAGMAR,ZIA ERT PATIENT MEDICARE (WNR) MEDICARE () PART B May 15, 2002 PART B [id number] [phone] DAGMAR,ZIA ERT PATIENT MEDICARE (WNR) MEDICARE () PART A May 15, 2002 PART A [id number] [phone] DAGMAR,ZIA ERT PATIENT MEDICARE (WNR) MEDICARE () PART B May 15, 2002 PART B [id number] DAGMAR,ZIA ERT PATIENT MEDICARE (WNR) MEDICARE () PART A May 15, 2002 PART A [id number] DAGMAR,ZIA ERT PATIENT Selected Encounter This section includes the information on record at [place] for the Encounter. Date/Time Encounter Type Encounter Description Reason Provider Source Sep 23, 2023 01:00 PM OFF/OP EST OCTOBER X REQ PHY/QHP PRIMARY CARE/MEDICINE ICD-10-CM R06.00 Dyspnea, unspecified KIP HEAD IHGrecia Encounter Template Text not used by [facility] Assessments - Encounter Diagnoses This section includes the primary and secondary diagnoses documented for the Encounter. Date/Time Primary/Secondary Diagnosis Diagnosis Name Provider Source Oct 12, 2023 01:06 PM PRIMARY Dyspnea, unspecified ADILENEKIP ARROYO GAST[place] Oct 12, 2023 01:06 PM SECONDARY Cough, unspecified ADILENEKIP [place] Plan of Treatment: Future Appointments (+ 6 months) and Future Tests (+/- 45 days) The Plan of Treatment section includes future care activities for the patient [facility] [place] [facility] This section includes future appointments [...] 2023 03:00 PM AM[facility]ULATORY - [facility]ICINE [facility] Sep 30, 2023 03:15 PM AMBULATORY - [facility]ICINE [facility] Oct 13, 2023 01:00 PM [facility] October 16, 2023 01:00 PM [facility] [place] [facility] Dec 15, 2023 02:30 PM [facility] - [facility] Dec 30, 2023 03:00 PM AMBULATORY - MEDICINE [facility] [place] [facility] Mar 02, 2024 03:00 PM AMBULATORY - MEDICINE [facility] Lab Results: +/- 30 days [...] Range Comment Sep 23, 2023 01:35 PM [place] COVID-19 FLU/RSV DIAGNOSTIC PANEL Speci men Type: NASOPHARYNX Comment: This test is authorized for emergency use only. False negative results may occur if virus is present at levels below the analytical limit of detection.Nega tive results do not preclude SARS-CoV-2, influenza or RSV infection and should not be used as the sole basis for treatment or other patient management decisions.[facility] mone FLUVID: HCPs: https://www.fd a.gov/media/ 1472/download. Patients: https://www.[employer] a.gov/media/ 312/download Ordering Provider: CHATO ADHIKARI Report Released Date/Time: Sep 23, 2023 01:14 PM Reporting Lab: [address] [address] Performing Lab: [address] [address] COVID-19 PCR (FLUVID) NEGATIVE NEGATIVE FLU A PCR (FLUVID) NEGATIVE FLU B PCR (FLUVID) NEGATIVE RSV PCR (FLUVID) NEGATIVE Sep 16, 2023 01:56 PM [facility] HEMOGLOBIN A1C PANEL Specimen Type: BLOOD [...] Sep 16, 2023 01:09 PM Reporting Lab: [address] [address] Performing Lab: [address] [address] HEMOGLOBIN A1C 6.8 H 4.0-5.6 Sep 16, 2023 01:56 PM [facility] BASIC METABOLIC PANEL (non-fasting) Specimen Type: SERUM No comment entered. Ordering Provider: NIK GILL Report Released Date/Time: Sep 16, 2023 01:09 PM Reporting Lab: [address] [address] Performing Lab: [address] [address] UREA NITROGEN 25 mg/dL 7-25 GLUCOSE 234 mg/dL H 65-100 SODIUM 140 mmol/L 135-145 POTASSIUM 5.0 mmol/L 3.5-5.0 CHLORIDE 106 mmol/L 100-110 CO2 23 meq/L 20-30 CREATININE, Serum 1.80 mg/dL H 0.50-1.40 eGFR(CKD-EPI 2020) 36 mL/min L >60 Sep 16, 2023 01:56 PM [facility] CBC Specimen Type: BLOOD No comment entered. Ordering Provider: NIK GILL Report Released Date/Time: Sep 16, 2023 01:09 PM Reporting Lab: [facility] [address] [facility] [address] Performing Lab: [facility] [address] [facility] [facility] [address] WBC 7.86 10*3/uL 4.50-11.00 RBC 4.28 10*6/uL [...] 28, 2023 03:00 PM [place]-TOBACCO NEVER USED [place] Tobacco Use History This section includes a history of the smoking, or tobacco-related health factors, that were collected on or before the date of the Encounter. The data comes from the [place] facility where the Encounter took place. Date/Time Smoking Status/Tobacco Use Comment F acility Apr 09, 2021 10:00 AM [place]-TOBACCO NEVER USED [place] Mar 13, 2020 12:30 PM [facility]-TOBACCO NEVER USED [place] Feb 02, 2018 02:02 PM [place]-TOBACCO NEVER USED [place] Mar 10, 2017 01:57 PM LIFETIME NON-TOBACCO USER [place] Feb 11, 2016 02:44 PM LIFETIME NON-TOBACCO USER [place] May 09, 2009 09:43 AM LIFETIME NON-TOBACCO USER [place] Radiology Reports: +/- 30 days of the [...] 03:11 PM CHEST (2 VIEWS): ORLY LEAVITT [id number] -[id number] M Exm Date: SEP 24, 2023@15:11 Req Phys: CHATO ADHIKARI Loc: C[facility]/SO/SICK CALL WEIGHT INSPECTOR (Req'g Loc Img Loc: [facility]/BUILDING 1 Service: Unknown (Case [id number] COMPLETE) CHEST (2 VIEWS) (RAD Detailed) CPT:13831 Reason for Study: wheezing, cough, SOB Clinical History: Covering resident, fellow, WEIGHT INSPECTOR or attending: Chato Adhikari NP [place] Pager: [phone] Backup pager: History: Report Status: Verified Date Reported: SEP 24, 2023 Date Verified: SEP 24, 2023 Lead Database Developer E-Sig:/ES/LATRICE DUNBAR JR Report: Study: PA and [...] Primary Interpreting Staff: LATRICE DUNBAR JR, Radiologist (Lead Database Developer) /LATRICE BAGLEY JR [place] [facility] Encounter Notes: All associated encounter notes This section contains the clinical notes associated to the Encounter. Date/Time Encounter Note(s) Provider Source Sep 23, 2023 01:19 PM PRIMARY CARE NOTE: LOCAL TITLE: WALK-IN NOTE PRIMARY CARE (T) STANDARD TITLE: PRIMARY CARE NOTE DATE OF NOTE: SEP 23, 2023@13:19 ENTRY DATE: SEP 23, 2023@13:19:59 AUTHOR: KIP HEAD COSIGNER: URGENCY: STATUS: COMPLETED Data: 88year old MALE reports to Primary Care clinic for Walk-In visit. 's PCP is MARGARITA FLOREZ, last visit with PCP was 09/15/23, next visit scheduled for 12/15/23. Today Vet walks in to clinic with complaint of respiratory symptoms Last recorded Vital Signs are: Temperature:98.1 F [36.7 C] (09/15/2023 11:21) Pulse:88 (09/15/2023 11:21) Blood Pressure:109/57 (09/15/2023 11:21) Respiration:18 (10/15/2021 14:15) Pain:1 (10/15/2021 14:15) Vet reports current allergies are: Remote Allergy Data No Remote Allergy/ADR Data available for this patient Current Medications from Active Med list include: Active Outpatient Medications (including Supplies): Active Outpatient Medications Status = 1) ACCU-CHEK GUIDE (GLUCOSE) TEST STRIP USE 1 STRIP TO ACTIVE TEST BLOOD SUGARS TWICE DAILY 2) ALLOPURINOL 100MG TAB TAKE ONE TABLET BY MOUTH TWICE ACTIVE DAILY FOR GOUT 3) AMLODIPINE BESYLATE 5MG TAB TAKE ONE TABLET BY MOUTH ACTIVE (S) ONCE DAILY FOR BLOOD PRESSURE/HEART, DO NOT TAKE WITH GRAPEFRUIT JUICE 4) CARBOXYMETHYLCELLULOSE NA 0.5% OPH SOLN INSTILL 1 ACTIVE DROP INTO EACH EYE FOUR TIMES DAILY NEEDED FOR DRY EYE 5) CLOPIDOGREL BISULFATE 75MG TAB TAKE ONE TABLET BY ACTIVE (S) MOUTH ONCE DAILY TO PREVENT BLOOD CLOTS 6) FENOFIBRATE 145MG TAB TAKE ONE TABLET BY MOUTH AT ACTIVE (S) BEDTIME TO LOWER CHOLESTEROL 7) FUROSEMIDE 20MG TAB TAKE ONE TABLET BY MOUTH ONCE ACTIVE DAILY TO REMOVE FLUID/CONTROL BLOOD PRESSURE 8) GABAPENTIN 300MG CAP TAKE ONE CAPSULE BY MOUTH AT ACTIVE BEDTIME 9) GLUCOSE SENSOR DEXCOM G7 USE 1 SENSOR DIRECTED ACTIVE EVERY 10 DAYS 10) INSULIN SYRINGE 0.5ML 30G 12MM USE 1 SYRINGE ACTIVE SUBCUTANEOUSLY TWICE DAILY FOR INSULIN INJECTIONS 11) INSULIN,ASPART,HUMAN 70/30 NOVOLOG INJ INJECT 24 ACTIVE UNITS SUBCUTANEOUSLY EVERY MORNING AND INJECT 20 UNITS EVERY EVENING 12) LANCET,SOFTCLIX USE 1 LANCET TOPICALLY ONCE DAILY TO ACTIVE TEST BLOOD SUGAR 13) LUBRICATING (PF) OPH OINT APPLY THIN RIBBON INTO EACH ACTIVE EYE AT BEDTIME 14) MAGNESIUM OXIDE 420MG TAB TAKE ONE TABLET BY MOUTH ACTIVE TWICE DAILY FOR MAGNESIUM SUPPLEMENTATION 15) METFORMIN HCL 500MG 24HR SA TAB TAKE TWO TABLETS BY ACTIVE MOUTH ONCE DAILY 16) METOPROLOL SUCCINATE 100MG SA TAB TAKE ONE TABLET BY ACTIVE (S) MOUTH ONCE DAILY FOR BLOOD PRESSURE/HEART 17) NIACIN (SLO-NIACIN) 750MG TAB,SA TAKE ONE TABLET BY HOLD MOUTH TWICE DAILY 18) OMEPRAZOLE 20MG EC CAP TAKE ONE CAPSULE BY MOUTH ACTIVE TWICE DAILY 19) SEMAGLUTIDE 1MG/0.75ML INJ PEN 3ML INJECT 1MG ACTIVE SUBCUTANEOUSLY ONCE A WEEK FOR TYPE 2 DIABETES MELLITUS 20) SIMVASTATIN 80MG TAB TAKE ONE-HALF TABLET BY MOUTH ACTIVE (S) ONCE DAILY FOR CHOLESTEROL 21) SKIN BARRIER WIPE TORBOT SKIN TAC USE [...] 70/30 NOVOLOG INJ 16 ACTIVE UNITS SUBCUTANEOUSLY 27 Total Medications Action: [place] reports to sick call with daughter Mindi ([phone]) with reports of respiratory symptoms. Symptoms began 2-3 days ago Daughter states Veterans temp this morning 99.9 Reports cough, increase fatigue, weakness and dyspnea. Not sleeping well due to cough Denies nausea, vomiting or diarrhea Denies sore throat Denies ear pain Spouse in hospital with double pneumonia and sepsis Using Robitussin with no effect Nasal swab completed to R/O Covid/Flu/RSV referred to Chato Adhikari WEIGHT INSPECTOR for evaluation. Reminders Advance Directive Screen AD May 07 Medication Reconciliation DUE NOW COVID-19 Immunization DUE NOW /es/ KIP HEAD RN PRIMARY CARE RN Signed: 09/23/2023 15:32 KIP HEADFIELD
--- OUTSIDE RECORDS SUMMARY | 2024-05-24 13:14 | XMS_ITS | Encounter Summary ---
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 November 06, 2007 [id number] DAGMAR,ZIA ERT PATIENT BCBS [place] MEDICARE SUPPLEMEN [place] [facility] 2 November 06, 2007 [id number] [phone] DAGMAR,ZIA ERT PATIENT [place] SUPPLEMEN [place] MED[facility] 2 November 06, 2007 [id number] DAGMAR,ZIA ERT PATIENT BCBS OF [facility] MEDICARE SUPPLEMEN [facility] Dec 13, 2013 [id number] DAGMAR,ZIA ERT PATIENT [place] ROSALBA RAUSCH [facility] AN/MX Dec 13, 2008 [id number] DAGMAR,ZIA ERT PATIENT MEDICARE (WNR) MEDICARE () PART B May 15, 2012 PART B [id number] DAGMAR,ZIA ERT PATIENT MEDICARE (WNR) MEDICARE () PART A May 15, 2002 PART A [id number] DAGMAR,ZIA ERT PATIENT MEDICARE (WNR) MEDICARE (M) PART B May 15, 2002 PART B [id number] DAGMAR,ZIA ERT PATIENT MEDICARE (WNR) MEDICARE () PART A May 15, 2002 PART A [id number] [phone] DAGMAR,ZIA ERT PATIENT MEDICARE (WNR) MEDICARE (M) PART B May 15, 2002 PART B [id number] DAGMAR,ZIA ERT PATIENT MEDICARE (WNR) MEDICARE () PART A May 15, 2002 PART A [id number] [phone] DAGMAR,ZIA ERT PATIENT MEDICARE (WNR) MEDICARE () PART B May 15, 2002 PART B [id number] DAGMAR,ZIA ERT PATIENT MEDICARE (WNR) MEDICARE () PART A May 15, 2002 PART A [id number] [phone] DAGMAR,ZIA ERT PATIENT Selected Encounter This section includes the information on record at [place] for the Encounter. Date/Time Encounter Type Encounter Description Reason Provider Source Oct 13, 2023 01:00 PM COMPRE OPH EXAM EST PT 1/> OPTOMETRY ICD-10-CM E11.9 Type 2 diabetes mellitus without complications KAELA HUNTER Encounter Template Text not used by VA Assessments - Encounter Diagnoses This section includes the primary and secondary diagnoses documented for the Encounter. Date/Time Primary/Secondary Diagnosis Diagnosis Name Provider Source November 06, 2023 06:10 AM PRIMARY Type 2 diabetes mellitus without complications KAELA HUNTER [place] [facility] [place] [facility] November 06, 2023 06:10 AM SECONDARY Dry eye syndrome of bilateral lacrimal glands [facility] [place] [facility] November 06, 2023 06:10 AM SECONDARY Presence of intraocular lens [facility]A HUN[facility] Plan of Treatment: Future Appointments (+ 6 months) and Future Tests (+/- 45 days) The Plan of Treatment section includes future care activities for the patient [facility] This section includes future appointments and future orders which are active, pending or scheduled. Future Appointments This section includes appointments that were scheduled to occur 6 months from the date of the Encounter, up to a maximum of 20 appointments. The data comes from all [place] treatment facilities. Appointment Date/Time Appointment Type Appointme nt Facility Name October 16, 2023 01:00 PM [facility] [place] [facility] Dec 15, 2023 02:30 PM AMBULATORY - MEDICINE [facility] Dec 30, 2023 03:00 PM AMBULATORY MEDICINE [place] [facility] [place] [facility] Mar 02, 2024 03:00 PM AMBULATORY - MEDICINE [facility] Lab Results: +/- 30 days of the encounter This section includes the Chemistry and Hematology Lab Results on record with [place] for the patient. Radiology Reports and Pathology Reports are provided separately, in subsequent sections. Lab Results This section contains the Chemistry/Hematology Results that were resulted 30 days before or 30 daysafter the date of the Encounter. Date/Time Source Result Type Result - Unit Interpretation Reference Range Comment Sep 23, 2023 01:35 PM [facility] COVID-19 FLU/RSV DIAGNOSTIC PANEL Speci men Type: NASOPHARYNX Comment: This test is authorized for emergency use only. False negative results may occur if virus is present at levels below the analytical limit of detection.Nega tive results do not preclude SARS-CoV-2, influenza or RSV infection and should not be used as the sole basis for treatment or other patient management decisions.[facility] mone FLUVID: HCPs: https://www.fd a.gov/media/ 1534/download. Patients: https://www.[employer] a.gov/media/ 0989/download Ordering Provider: CHATO ADHIKARI Report Released Date/Time: Sep 23, 2023 01:14 PM Reporting Lab: [address] [address] Performing Lab: [address] [address] COVID-19 PCR (FLUVID) NEGATIVE NEGATIVE FLU A PCR (FLUVID) NEGATIVE FLU B PCR (FLUVID) NEGATIVE RSV PCR (FLUVID) NEGATIVE Sep 16, 2023 01:56 PM [facility] HEMOGLOBIN A1C PANEL Specimen Type: BLOOD [...] Sep 16, 2023 01:09 PM Reporting Lab: [address] [address] Performing Lab: [address] [address] HEMOGLOBIN A1C 6.8 H 4.0-5.6 Sep 16, 2023 01:56 PM [facility] BASIC METABOLIC PANEL (non-fasting) Specimen Type: SERUM No comment entered. Ordering Provider: NIK GILL Report Released Date/Time: Sep 16, 2023 01:09 PM Reporting Lab: [address] [address] Performing Lab: [address] [address] UREA NITROGEN 25 mg/dL 7-25 GLUCOSE 234 mg/dL H 65-100 SODIUM 140 mmol/L 135-145 POTASSIUM 5.0 mmol/L 3.5-5.0 CHLORIDE 106 mmol/L 100-110 CO2 23 meq/L 20-30 CREATININE, Serum 1.80 mg/dL H 0.50-1.40 eGFR(CKD-EPI 2020) 36 mL/min L >60 Sep 16, 2023 01:56 PM [facility] CBC Specimen Type: BLOOD No comment entered. Ordering Provider: NIK GILL Report Released Date/Time: Sep 16, 2023 01:09 PM Reporting Lab: [facility] [address] [address] Performing Lab: [facility] [address] [address] WBC 7.86 10*3/uL 4.50-11.00 RBC 4.28 10*6/uL [...] and tobacco- related health factors from the [place] facility where the Encounter took place. Current Smoking Status This section includes the most current smoking, or tobacco-related health factor, from the [place] facility where the Encounter took place. Date/Time Current Smoking Status Comment Facil ity Apr 15, 2022 01:00 PM VA-TOBACCO NEVER USED [facility] Radiology Reports: +/- 30 days of [...] the Encounter. The data comes from all [place] treatment facilities. Date/Time Radiology Report Provider Source Sep 24, 2023 03:11 PM CHEST (2 VIEWS): ORLY LEAVITT [phone] Exm Date: SEP 24, 2023@15:11 Req Phys: CHATO ADHIKARI Loc: CWM/SO/SICK CALL LANDSCAPE ARCHITECTURE PROFESSOR (Req'g Loc Img Loc: [facility] Service: Unknown (Case [id number] COMPLETE) CHEST (2 VIEWS) (RAD Detailed) CPT:67297 Reason for Study: wheezing, cough, SOB Clinical History: Covering resident, fellow, LANDSCAPE ARCHITECTURE PROFESSOR or attending: Chato Adhikari NP [place] Pager: [phone] Backup pager: History: Report Status: Verified Date Reported: SEP 24, 2023 Date Verified: SEP 24, 2023 Roll Cutter E-Sig:/ES/LATRICE DUNBAR JR Report: Study: PA and [...] Primary Interpreting Staff: LATRICE DUNBAR JR, Radiologist (Roll Cutter) /LATRICE BAGELY JR [place] [facility] Encounter Notes: All associated encounter notes This section contains the clinical notes associated to the Encounter. Date/Time Encounter Note(s) Provider Source Oct 13, 2023 10:38 AM OPTOMETRY NOTE: LOCAL TITLE: OPTOMETRY NOTE STANDARD TITLE: OPTOMETRY NOTE DATE OF NOTE: OCT 13, 2023@10:38 ENTRY DATE: OCT 13, 2023@10:38:41 AUTHOR: SHELL SHARIF COSIGNER: KOFFI HUNTER URGENCY: STATUS: COMPLETED OPTOMETRY NOTE Has ADDENDA Active problems - Computerized Problem List is the source for the followin. Neuropathy due to type 2 diabetes mellitus 2. Diabetic nephropathy 3. Hypomagnesemia 4. Diarrhea 5. Gutierrez's esophagus 6. Insomnia (SCT 853858049) 7. Bone density below reference range 8. Diabetes Mellitus Type 2 (SCT 42074006) 9. Obstructive Sleep Apnea of Adult (SCT 5972162794304) 10. Prostate Cancer ([facility] [id number]) 11. Chronic kidney disease stage 3 12. Low Back Pain * 13. Vitamin B12 deficiency 14. 2009: Colonoscopy: Polypectomy 1511-08-09: PFT: Normal 16. Abdominal aortic aneurysm (SNOMED CT 412532221) 17. Benign essential hypertension (SNOMED CT 3926735) 18. Venous insufficiency of leg (SNOMED CT 349859502) 19. Other dyspnea and respiratory abnormality 20. Coronary arteriosclerosis (SNOMED CT 45524871) 21. CAD: 2005:PTCA 5 TaxusStents: LADx2 RCAx2 Prox RCA x1 22. H/O: gout 23. Hyperglycemia due to type 2 diabetes mellitus (SNOMED CT 928553839588475) 24. Gastroesophageal reflux disease 25. Hyperlipidemia (SNOMED CT 03706965) 26. 1957: 2 rt inguinal hernia repair/[place] 27. 1969: Lipoma Removal 28. Tonsillectomy and Adenoidectomy (under age 12) 29. FAM HX-ISCHEM HEART DIS Active Outpatient Medications (including Supplies): Active Outpatient Medications Status 1) ACCU-CHEK GUIDE (GLUCOSE) TEST STRIP USE [...] ONE TABLET BY MOUTH ACTIVE ONCE DAILY FOR BLOOD PRESSURE/HEART, DO NOT TAKE WITH GRAPEFRUIT JUICE 6) AMOXICILLIN 500MG CAP TAKE ONE CAPSULE BY MOUTH TWICE ACTIVE DAILY 7) BENZONATATE 100MG CAP TAKE ONE CAPSULE BY MOUTH EVERY ACTIVE 8 HOURS NEEDED FOR COUGH 8) CLOPIDOGREL BISULFATE 75MG TAB TAKE ONE [...] DEXCOM G7 USE 1 SENSOR DIRECTED ACTIVE (S) EVERY 10 DAYS 14) INSULIN SYRINGE 0.5ML 30G 12MM USE 1 SYRINGE ACTIVE SUBCUTANEOUSLY TWICE DAILY FOR INSULIN INJECTIONS 15) INSULIN,ASPART,HUMAN 70/30 NOVOLOG INJ INJECT 24 ACTIVE UNITS SUBCUTANEOUSLY EVERY MORNING AND INJECT 20 UNITS EVERY EVENING 16) LANCET,SOFTCLIX USE 1 LANCET TOPICALLY ONCE DAILY TO ACTIVE TEST BLOOD SUGAR 17) MAGNESIUM OXIDE 420MG TAB TAKE ONE TABLET BY MOUTH ACTIVE TWICE DAILY FOR MAGNESIUM SUPPLEMENTATION 18) METFORMIN HCL 500MG 24HR SA TAB TAKE TWO TABLETS BY ACTIVE MOUTH ONCE DAILY 19) METOPROLOL SUCCINATE 100MG SA TAB TAKE ONE TABLET BY ACTIVE (S) MOUTH ONCE DAILY FOR BLOOD PRESSURE/HEART 20) NIACIN (SLO-NIACIN) 750MG TAB,SA TAKE ONE TABLET BY HOLD MOUTH TWICE DAILY 21) OMEPRAZOLE 20MG EC CAP TAKE ONE CAPSULE BY MOUTH ACTIVE TWICE DAILY 22) PREDNISONE 50MG TAB TAKE ONE TABLET BY MOUTH ONCE ACTIVE DAILY FOR BRONCHITIS 23) SEMAGLUTIDE 1MG/0.75ML INJ PEN 3ML INJECT 1MG ACTIVE SUBCUTANEOUSLY ONCE A WEEK FOR TYPE 2 DIABETES MELLITUS 24) SIMVASTATIN 80MG TAB TAKE ONE-HALF TABLET BY MOUTH ACTIVE (S) ONCE DAILY FOR CHOLESTEROL 25) SKIN BARRIER WIPE TORBOT SKIN TAC USE 1 WIPE ACTIVE TOPICALLY EVERY 10 DAYS Active Non-VA Medications Status 1) Non-VA ASPIRIN 81MG EC TAB 81MG [...] 70/30 NOVOLOG INJ 16 ACTIVE UNITS SUBCUTANEOUSLY 31 Total Medications Allergies: COLCHICINE/PROBENECID All medications including those prescribed by outside VA's, community providers, and all OTC meds were reviewed and reconciled with patient to the best of their abilities. This 88 year old MALE is seen today for a comprehensive eye exam Chief Complaint: Patient notes eyes are dry and crusty in the morning. Uses ATs occasionally, but not as much as he should. Would like a refill. Last a1c 6.8% 09/16/2023 OHx: 1. T2DM without ocular complications OU 2. Pseudophakia OU 3. Dry eye syndrome OU 4. Refractive error, Presbyopia OU (-) Pain: (-) SINGH: (-) Diplopia: (-) Flashes: (+) Floaters: longstanding (-) Amaurosis Fugax/Tia's: (-) Eye Injury: (+) Eye Surgery: CE/ PCIOL OU (-) TBI FOHx: (-) Glaucoma/ARMD/Blindness (-) Smoker/Length of Time/PPD: Current Rx with last BCVA: OD: plano -0.50 x 100 20/20 OS: +0.25 -0.50 x 090 20/20 Add: +2.50 DVA ( )sc ( x )cc OD: 20/20-2 OS: 20/25+1 Pupils: PERRL (-)APD EOMs: SAFE OU, (-)Pain/Diplopia CVF (facial, peripheral): FTFC OU Subjective Refraction: OD: +0.25 -0.75 x 100 20/20-2 OS: +0.25 -0.50 x 090 20/25+1 Add: +2.50 All the above performed by student, reviewed by attending Anterior segment: Performed by student, repeated by attending Lids: dermatochalasis OU, 2+ belph OU, MGD OU Conj: pinguecula N/T OU Cornea: clear OU AC: 4x4 OU Iris: flat and clear OU, (-) TID OU Lens: PCIOL clear and centered OU, (-)PXF/PDS OU Tonometry: GAT Performed by student, reviewed by attending OD 14 mmHg OS 14 mmHg Time: 1:08 PM Last IOP: OD: 16 mmHg OS: 17 mmHg Fundus exam: Dilated: 1:09 PM Dilating Drops: 1GTT 1 % Tropicamide OU & 1GTT 2.5% Phenylephrine OU (Pt. ed. on side effects, dilation warning given and verbal consent obtained) Patient advised not to drive if they feel they have any symptoms which could affect their ability to drive safely. Patient advised not to engage in any activities which could put themselves or others at risk if they feel they have any symptoms which could affect their ability to perform those activities safely. Performed by student, repeated by attending Vit: PVD OU C/D: 0.40/0.40 OD, 0.40/0.40 OS Disc: Rim tissue is pink and healthy OU (-)NVD OU Macula: flat and clear OU,(-)DBH/CSME OU PPole: clear,(-)DBH/CWS/MICHELA/VB OU A/V: 2/3 Vessels: normal caliber OU Periph: flat and intact (-)holes, tears, detachments 360 OU, (-) NVE OU Assessment/Plan: 1. Type II Diabetes without evidence of retinopathy or macular edema OU - Pt ed re today's findings and the possible ocular health and visual complications associated with diabetes as well as importance of attending follow up appointments - Encouraged blood sugar, blood pressure and lipid control as directed by PCP - Pt ed to report any vision changes CHARLES. - Monitor at next visit 2. Dry eye syndrome OU - Patient educated on tdoday's findings and condition - Advised more consistent use of ATs to relieve and prevent symptoms - Continue ATs and lubricating delvin OU - Monitor 3. Pseudophakia OU - stable. Monitor 4. Refractive error, Presbyopia OU - Order new DVO and NVO glasses today Return to Clinic 1 year or earlier PRN Patient Education: Diabetes: Patient was educated regarding diabetes and related ocular complications including retinopathy and cataract formation as well as other related systemic complications. The importance of good blood sugar control, blood sugar testing as recommended by their PCP and the importance of timely follow up were all emphasized. /radhames/ SHELL SHARIF OPTOMETRY STUDENT Signed: 10/13/2023 14:57 /radhames/ Koffi Hunter OD CHIEF OF OPTOMETRY Cosigned: 10/14/2023 09:11 10/14/2023 ADDENDUM STATUS: COMPLETED I saw this patient in conjunction with the student and agree with the stated findings and plan as noted after reviewing both the history and repeating luna elements of the physical exam now. Patient last seen here October 09, 2022 returns today for comprehensive eye examination. He is requesting refills of lubricating drops that he uses for bilateral dry eye disease. His last hemoglobin A1c obtained on September 16, 2023 was 6.8. Impression: Diabetes without retinopathy or macular edema either eye. Stressed the importance of continued optimize control of blood sugar, blood pressure and cholesterol with healthy lifestyle. Mild bilateral dry eye disease with good effect from use of lubricating drops 3-4 times a day as needed. Renew lubricating drops now for mail out. Bilateral pseudophakia looks perfect. Update glasses today. Plan: Patient education as noted above reviewed exam findings now. Renew lubricating drops for mail out. Ordering new glasses today. Return in 12 months or sooner if need be. Ophthalmic medication reconciliation: Lubricating drops 3-4 times a day as needed each eye. Medication Reconciliation: Outpatient: Has the patient been taking medications as documented in the EMLR? YES: The patient has been taking medications as documented in the EMLR. Essential Medication List for Review used to complete this medication reconciliation. INCLUDED IN THIS LIST: Alphabetical list of active outpatient prescriptions dispensed from this [place] (local) and dispensed from another [place] or [facility] facility (remote) as well as inpatient orders [...] list may not be complete. Please check JLSplitSecnd. Allergies/ADRs (Tool #5) FACILITY ALLERGY/ADR -------- No Remote Allergy/ADR Data available for this patient [place] [facility] [place] [facility] COLCHICINE/PROBENECID Med Recon NoGlossary (Tool #1) INCLUDED IN THIS LIST: Alphabetical list of active outpatient prescriptions dispensed from this VA (local) and dispensed from another [place] or [facility] facility (remote) as well as inpatient orders (local pending and active), local clinic medications, locally documented non-VA medications, and local prescriptions that have or been discontinued in the past 90 days. Non-VA Meds Last Documented On: Sep 15, 2023 NOTE The display of VA prescriptions dispensed from another [place] or [facility] facility (remote) is limited to active outpatient prescription entries matched to National Drug File at the originating site and may not include some items such as investigational drugs, compounds, etc. NOT INCLUDED IN THIS LIST: Medications self-entered by the patient into personal health records (i.e. [place]) are NOT included in this list. Non-VA medications documented outside this [place], remote inpatient orders (regardless of status) and remote clinic medications are NOT included in this list. The patient and provider must always discuss medications the patient is taking, regardless of where the medication was dispensed or obtained. OUTPT ALBUTEROL 90MCG (CFC-F) 200D ORAL INHL (Status = Active) INHALE 1 TO 2 PUFFS BY MOUTH EVERY 6 HOURS NEEDED FOR BRONCHOSPASM Rx# [id number] Last Released: 09/23/23 Qty/Days Supply: 06/24 Rx Expiration Date: 10/23/23 Refills Remainin Indication: FOR BRONCHOSPASM OUTPT ALLOPURINOL 100MG TAB (Status = Active) TAKE ONE TABLET BY MOUTH TWICE DAILY FOR GOUT Rx# [id number] Last Released: 08/29/23 Qty/Days Supply: Rx Expiration Date: 05/17/24 Refills Remainin OUTPT AMLODIPINE BESYLATE 5MG TAB (Status = Active) TAKE ONE TABLET BY MOUTH ONCE DAILY FOR BLOOD PRESSURE/HEART, DO NOT TAKE WITH GRAPEFRUIT JUICE Rx# [id number] Last Released: 10/01/23 Qty/Days Supply: Rx Expiration Date: 05/17/24 Refills Remainin OUTPT AMOXICILLIN 500MG CAP (Status = Active) TAKE ONE CAPSULE BY MOUTH TWICE DAILY Rx# [id number] Last Released: 09/28/23 Qty/Days Supply: 26/12 Rx Expiration Date: 10/28/23 Refills Remainin Indication: FOR INFECTION CAUSED BY BACTERIA Non-VA ASPIRIN 81MG EC TAB TAKE ONE TABLET BY MOUTH DAILY Non-VA medication not recommended by VA provider. OUTPT BENZONATATE 100MG CAP (Status = Active) TAKE ONE CAPSULE BY MOUTH EVERY 8 HOURS NEEDED FOR COUGH Rx# [id number] Last Released: 10/05/23 Qty/Days Supply: Rx Expiration Date: 10/31/23 Refills Remainin Indication: FOR COUGH OUTPT CARBOXYMETHYLCELLULOSE NA 0.5% OPH SOLN (Status = ) INSTILL 1 DROP INTO EACH EYE FOUR TIMES DAILY NEEDED FOR DRY EYE Rx# [id number] Last Released: 10/16/22 Qty/Days Supply: 60 Rx Expiration Date: 10/10/23 Refills Remainin Indication: FOR DRY EYE Non-VA CHOLECALCIF 25MCG (D3-1,000UNIT) TAB TAKE ONE TABLET BY MOUTH ONCE DAILY Patient wants to buy from Non-VA pharmacy. Medication prescribed by Non-VA provider. Indication: FOR VITAMIN D DEFICIENCY OUTPT CLOPIDOGREL BISULFATE 75MG TAB (Status = Active) TAKE ONE TABLET BY MOUTH ONCE DAILY TO PREVENT BLOOD CLOTS Rx# [id number] Last Released: 09/24/23 Qty/Days Supply: Rx Expiration Date: 05/17/24 Refills Remainin Indication: TO PREVENT BLOOD CLOTS Non-VA CYANOCOBALAMIN 250MCG TAB TAKE ONE TABLET BY MOUTH ONCE DAILY Patient wants to buy from Non-VA pharmacy. OUTPT DM 10/GUAIFENESN 100MG/5ML (AF & SF) LIQ (Status = Discontinued) TAKE 10 MLS BY MOUTH EVERY 6 HOURS NEEDED FOR COUGH Rx# [id number] Last Released: 09/23/23 Qty/Days Supply: 120/10 Rx Expiration Date: 10/23/23 Refills Remainin Indication: FOR COUGH OUTPT DM 10/GUAIFENESN 100MG/5ML (AF & SF) LIQ (Status = Active) TAKE 10 MLS BY MOUTH EVERY 6 HOURS NEEDED FOR COUGH Rx# [id number] Last Released: 10/02/23 Qty/Days Supply: 120/10 Rx Expiration Date: 10/31/23 Refills Remainin Indication: FOR COUGH OUTPT FENOFIBRATE 145MG TAB (Status = Active/Suspended) TAKE ONE TABLET BY MOUTH AT BEDTIME TO LOWER CHOLESTEROL Rx# [id number] Last Released: 08/10/23 Qty/Days Supply: Rx Expiration Date: 05/28/24 Refills Remainin Non-VA [...] DAILY TO REMOVE FLUID/CONTROL BLOOD PRESSURE Rx# [id number] Last Released: 09/16/23 Qty/Days Supply: Rx Expiration Date: 09/15/24 Refills Remainin Indication: FOR EDEMA WITH DEFECTIVE KIDNEY FUNCTION OUTPT FUROSEMIDE 40MG TAB (Status = Discontinued) TAKE ONE TABLET BY MOUTH ONCE DAILY TO REMOVE FLUID/CONTROL BLOOD PRESSURE Rx# [id number] Last Released: 08/21/23 Qty/Days Supply: Rx Expiration Date: 05/17/24 Refills Remainin OUTPT GABAPENTIN 300MG CAP (Status = Active) TAKE ONE CAPSULE BY MOUTH AT BEDTIME Rx# [id number] Last Released: 07/06/23 Qty/Days Supply: Rx Expiration [...] AND INJECT 20 UNITS EVERY EVENING Rx# [id number] Last Released: 09/22/23 Qty/Days Supply: Rx Expiration Date: 06/10/24 Refills Remainin Indication: FOR DIABETES OUTPT LISINOPRIL 5MG TAB (Status = Discontinued) TAKE ONE TABLET BY MOUTH ONCE DAILY TO CONTROL BLOOD PRESSURE Rx# [id number] Last Released: 08/29/23 Qty/Days Supply: Rx Expiration Date: 05/17/24 Refills Remainin OUTPT LUBRICATING (PF) OPH OINT (Status = ) APPLY THIN RIBBON INTO EACH EYE AT BEDTIME Rx# [id number] Last Released: 10/16/22 Qty/Days Supply: 07/12 Rx Expiration Date: 10/10/23 Refills Remainin OUTPT MAGNESIUM OXIDE 420MG TAB (Status = Active) TAKE ONE TABLET BY MOUTH TWICE DAILY FOR MAGNESIUM SUPPLEMENTATION Rx# [id number] Last Released: 07/30/23 Qty/Days Supply: 180/ Rx Expiration Date: 04/23/24 Refills Remainin Indication: FOR MAGNESIUM SUPPLEMENTATION OUTPT METFORMIN HCL 500MG 24HR SA TAB (Status = Active) TAKE TWO TABLETS BY MOUTH ONCE DAILY Rx# [id number] Last Released: 09/18/23 Qty/Days Supply: 180 Rx Expiration Date: 05/17/24 Refills Remainin OUTPT METOPROLOL SUCCINATE 100MG SA TAB (Status = Active/Suspended) TAKE ONE TABLET BY MOUTH ONCE DAILY FOR BLOOD PRESSURE/HEART Rx# [id number] Last Released: 08/12/23 Qty/Days Supply: 90 Rx Expiration Date: 05/17/24 Refills Remainin OUTPT NIACIN (SLO-NIACIN) 750MG TAB,SA (Status = On Hold) TAKE ONE TABLET BY MOUTH TWICE DAILY Rx# [id number] Last Released: Qt Supply: 200 Rx Expiration Date: 05/21/24 Refills Remainin OUTPT OMEPRAZOLE 20MG EC CAP (Status = Active) TAKE ONE CAPSULE BY MOUTH TWICE DAILY Rx# [id number] Last Released: 06/02/23 Qty/Days Supply: 180 Rx Expiration Date: 05/17/24 Refills Remainin OUTPT PREDNISONE 50MG TAB (Status = Active) TAKE ONE TABLET BY MOUTH ONCE DAILY FOR BRONCHITIS Rx# [id number] Last Released: 09/23/23 Qty/Days Supply: 10/17 Rx Expiration Date: 10/23/23 Refills Remainin Indication: BRONCHITIS OUTPT SEMAGLUTIDE 1MG/0.75ML INJ PEN 3ML (Status = Active) INJECT 1MG SUBCUTANEOUSLY ONCE A WEEK FOR TYPE 2 DIABETES MELLITUS Rx# [id number] Last Released: 10/08/23 Qty/Days Supply: 07/12 Rx Expiration Date: 06/10/24 Refills Remainin Indication: FOR TYPE 2 DIABETES MELLITUS OUTPT SIMVASTATIN 80MG TAB (Status = Active/Suspended) TAKE ONE-HALF TABLET BY MOUTH ONCE DAILY FOR CHOLESTEROL Rx# [id number] Last Released: 07/30/23 Qty/Days Supply: Rx Expiration Date: 05/17/24 Refills Remainin SUPPLIES OUTPT ACCU-CHEK GUIDE (GLUCOSE) TEST STRIP (Status = Active) USE 1 STRIP TO TEST BLOOD SUGARS TWICE DAILY Rx# [id number] Last Released: 05/05/23 Qty/Days Supply: 50/180 Rx Expiration Date: 04/28/24 Refills Remainin Indication: DIABETES OUTPT ACCU-CHEK GUIDE ME (GLUCOSE) METER (Status = ) USE METER TO TEST BLOOD SUGARS ONCE DAILY Rx# [id number] Last Released: 04/29/23 Qty/Days Supply: Rx Expiration Date: 07/27/23 Refills Remainin Indication: DIABETES OUTPT AEROCHAMBER Z-STAT PLUS (Status = Active) USE CHAMBER EVERY 6 HOURS NEEDED WITH ALBUTEROL INHALER Rx# [id number] Last Released: 09/25/23 Qty/Days Supply: 06/24 Rx Expiration Date: 10/23/23 Refills Remainin OUTPT GLUCOSE SENSOR DEXCOM G7 (Status = Discontinued) USE 1 SENSOR DIRECTED EVERY 10 DAYS Rx# [id number] Last Released: 07/01/23 Qty/Days Supply: Rx Expiration Date: 04/28/24 Refills Remainin OUTPT GLUCOSE SENSOR DEXCOM G7 (Status = Active/Suspended) USE 1 SENSOR DIRECTED EVERY 10 DAYS Rx# [id number] Last Released: 08/05/23 Qty/Days Supply: Rx Expiration Date: 08/05/24 Refills Remainin OUTPT INSULIN SYRINGE 0.5ML 30G 12MM (Status = Active) USE 1 SYRINGE SUBCUTANEOUSLY TWICE DAILY FOR INSULIN INJECTIONS Rx# [id number] Last Released: 09/15/23 Qty/Days Supply: 200/90 Rx Expiration Date: 06/10/24 Refills Remainin OUTPT LANCET,SOFTCLIX (Status = Active) USE 1 LANCET TOPICALLY ONCE DAILY TO TEST BLOOD SUGAR Rx# [id number] Last Released: 05/05/23 Qty/Days Supply: 200/90 Rx Expiration Date: 04/28/24 Refills Remainin Indication: DIABETES OUTPT SKIN BARRIER WIPE TORBOT SKIN TAC (Status = Active) USE 1 WIPE TOPICALLY EVERY 10 DAYS Rx# [id number] Last Released: 03/26/23 Qty/Days Supply: 50/90 Rx Expiration Date: 03/24/24 Refills Remainin Declines printed copy of medication list now. /radhames/ Koffi Hunter OD CHIEF OF OPTOMETRY Signed: 10/14/2023 09:14 SHELL SHARIF CNTRL [facility]
--- OUTSIDE RECORDS SUMMARY | 2024-05-24 13:14 | XMS_ITS | Encounter Summary ---
Author Name [place] Address [address] [place] [address] Care Team Providers Care Respiratory Care Instructor Name Role Phone MARGARITA FLOREZ Primary Care [...] Relationship to Policy Bejarano ALVA [place] MED[place] SUPPLEMEN [facility] Dec 13, 2013 [id number] [phone] DAGMAR,ZIA ERT PATIENT [place] MED[place]ARE SUPPLEMEN [facility] November 06, 2007 [id number] DAGMAR,ZIA ERT PATIENT [place] MED[place] SUPPLEMEN [facility] 2 November 06, 2007 [id number] [phone] DAGMAR,ZIA ERT PATIENT [place] SUPP[place] [facility] November 06, 2007 [id number] DAGMAR,ZIA ERT PATIENT BCBS OF [facility] MEDICARE SUPPLEMEN [facility] Dec 13, 2013 [id number] DAGMAR,ZIA ERT PATIENT [facility] MEDICARE SUPPLEMEN [facility] MMHG/ WHITM AN/MX Dec 13, 2008 [id number] DAGMAR,ZIA ERT PATIENT MEDICARE (WNR) MEDICARE () PART B May 15, 2012 PART B [id number] [phone] DAGMAR,ZIA ERT PATIENT MEDICARE (WNR) MEDICARE () PART A May 15, 2002 PART A [id number] DAGMAR,ZIA ERT PATIENT MEDICARE (WNR) MEDICARE (M) PART A May 15, 2002 PART A [id number] DAGMAR,ZIA ERT PATIENT MEDICARE (WNR) MEDICARE () PART B May 15, 2002 PART B [id number] DAGMAR,ZIA ERT PATIENT MEDICARE (WNR) MEDICARE () PART B May 15, 2002 PART B [id number] DAGMAR,ZIA ERT PATIENT MEDICARE (WNR) MEDICARE (M) PART A May 15, 2002 PART A [id number] DAGMAR,ZIA ERT PATIENT MEDICARE (WNR) MEDICARE () PART B May 15, 2002 PART B [id number] [phone] DAGMAR,ZIA ERT PATIENT MEDICARE (WNR) MEDICARE () PART A May 15, 2002 PART A [id number] DAGMAR,ZIA ERT PATIENT Selected Encounter This section includes the information on record at [facility] for the Encounter. Date/Time Encounter Type Encounter Description Reason Provider Source Oct 13, 2023 02:13 PM FIT SPECTACLES MONOFOCAL OPTOMETRY ICD-10-CM Z46.0 Encounter for fit/adjst of spectacles and contact lenses KATHRYN HUNTER Encounter Template Text not used by [facility] Assessments - Encounter Diagnoses This section includes the primary and secondary diagnoses documented for the Encounter. Date/Time Primary/Secondary Diagnosis Diagnosis Name Provider Source Oct 13, 2023 02:13 PM PRIMARY Encounter for fit/adjst of spectacles and contact lenses ALICIA RO [facility] Plan of Treatment: Future Appointments (+ 6 months) and Future Tests (+/- 45 days) The Plan of Treatment section includes future care activities for the patient from all [place] treatmentfacilities. This section includes future appointments and [...] 16, 2023 01:00 PM [facility] Dec 15, 2023 02:30 PM [facility]ULAT[facility] - [facility]INE [facility] Dec 30, 2023 03:00 PM AM[facility]UL[facility] Mar 02, 2024 03:00 PM AMBULATORY - MEDICINE [facility] Lab Results: +/- 30 days of [...] Range Comment Sep 23, 2023 01:35 PM [facility] COVID-19 FLU/RSV DIAGNOSTIC PANEL Speci men Type: [...] [facility] mone FLUVID: HCPs: https://www.fd a.gov/media/ 1828/download. Patients: https://www.Sway a.gov/media/ 3218/download Ordering Provider: CHATO ADHIKARI Report Released Date/Time: Sep 23, 2023 01:14 PM Reporting Lab: [address] [address] Performing Lab: [facility] [address] [address] COVID-19 PCR (FLUVID) NEGATIVE NEGATIVE FLU A PCR (FLUVID) NEGATIVE FLU B PCR (FLUVID) NEGATIVE RSV PCR (FLUVID) NEGATIVE Sep 16, 2023 01:56 PM [facility] HEMOGLOBIN A1C PANEL Specimen Type: [...] Sep 16, 2023 01:09 PM Reporting Lab: [address] [address] Performing Lab: [address] [address] HEMOGLOBIN A1C 6.8 H 4.0-5.6 Sep 16, 2023 01:56 PM [facility] BASIC METABOLIC PANEL (non-fasting) Specimen Type: SERUM No comment entered. Ordering Provider: NIK GILL Report Released Date/Time: Sep 16, 2023 01:09 PM Reporting Lab: [address] [address] Performing Lab: [address] [address] UREA NITROGEN 25 mg/dL 7-25 GLUCOSE 234 mg/dL H 65-100 SODIUM 140 mmol/L 135-145 POTASSIUM 5.0 mmol/L 3.5-5.0 CHLORIDE 106 mmol/L 100-110 CO2 23 meq/L 20-30 CREATININE, Serum 1.80 mg/dL H 0.50-1.40 eGFR(CKD-EPI 2020) 36 mL/min L >60 Sep 16, 2023 01:56 PM [facility] CBC Specimen Type: BLOOD No comment entered. 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'g Loc Img Loc: [facility] 1 Service: Unknown (Case [id number] COMPLETE) CHEST (2 VIEWS) (RAD Detailed) CPT:18077 Reason for Study: wheezing, cough, SOB Clinical History: Covering resident, fellow, 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 Date/Time Encounter Note(s) Provider Source Oct 13, 2023 02:13 PM OPTOMETRY NOTE: LOCAL TITLE: OPTOMETRY NOTE STANDARD TITLE: OPTOMETRY NOTE DATE OF NOTE: OCT 13, 2023@14:13 ENTRY DATE: OCT 13, 2023@14:13:16 AUTHOR: BIRGIT HAJI COSIGNER: URGENCY: STATUS: COMPLETED OPTOMETRY NOTE Has ADDENDA The quote provided below is for informational purposes only. Please verify prior to the creation of a purchase order. ORLY LEAVITT [id number] RX INFORMATION OD +0.25 -0.75 X100 Add:0.00 Pzm:0.00 Dir: Prz2:0.00 Dir2: OS +0.25 -0.50 X90 Add:0.00 Pzm:0.00 Dir: Prz2:0.00 Dir2: FITTING INFORMATION FPD: NPD: [facility]:R:35 L:32 SEG HT:R: L: Tint:None Shade:None [place] Billable Items FRAME: MONTRELL CHERY PATRICK 145 Right Lens: POLY SINGLE VISION 1.586 POLY Left Lens: POLY SINGLE VISION 1.586 POLY KLEAR ANTI-REFLECTIVE COATING ------- The quote provided below is for informational purposes only. Please verify prior to the creation of a purchase order. ORLY LEAVITT [id number] RX INFORMATION OD +2.75 -0.75 X100 Add:0.00 Pzm:0.00 Dir: Prz2:0.00 Dir2: OS +2.75 -0.50 X90 Add:0.00 Pzm:0.00 Dir: Prz2:0.00 Dir2: FITTING INFORMATION FPD: NPD: [facility]:R:31.5 L:30.0 SEG HT:R: L: Tint:None Shade:None VA Billable Items FRAME: MONTRELL ARAYAMETAL Right Lens: POLY SINGLE VISION 1.586 POLY Left Lens: POLY SINGLE VISION 1.586 POLY KLEAR ANTI-REFLECTIVE COATING /radhames/ BIRGIT HAJI NIGHT TIME NANNY Signed: 10/13/2023 14:13 Receipt Acknowledged By: 10/13/2023 14:20 /radhames/ Alicia Ro Optometry Health Machine Shop Repair Technician 10/13/2023 ADDENDUM STATUS: COMPLETED PDS Wool Hat Hydraulicker fit patient with 2 pair(s) of sv eyeglasses on 10/13/2023. OPT HT entered consult(s) as requested for provider signature. /radhames/ Alicia Ro Optometry Health Machine Shop Repair Technician Signed: 10/13/2023 14:22 BIRGIT HAJI [facility]
--- OUTSIDE RECORDS SUMMARY | 2024-05-24 13:14 | XMS_ITS ---
Author Name [place] Address [address] [place] [address] Care Team Providers Care Airport Clerk Name Role Phone MARGARITA FLOREZ Primary Care [...] Policy Bejarano ALVA [place] [facility] Dec 13, 2013 [id number] DAGMAR,ZIA ERT PATIENT [place] MEDICARE SUPPLEMEN [facility] November 06, 2007 [id number] DAGMAR,ZIA ERT PATIENT [place] MED[place] SUPPLEMEN [facility]EX 2 November 06, 2007 [id number] DAGMAR,ZIA ERT PATIENT [place] SUPPLEMEN [facility]EX 2 November 06, 2007 [id number] DAGMAR,ZIA ERT PATIENT BCBS OF [facility] MEDICARE SUPPLEMEN [facility] Dec 13, 2013 [id number] DAGMAR,ZIA ERT PATIENT BCBS OF [facility] MEDICARE SUPPLEMEN [facility] MMHG/ WHITM AN/MX Dec 13, 2008 [id number] DAGMAR,ZIA ERT PATIENT MEDICARE (WNR) MEDICARE () PART B May 15, 2012 PART B [id number] [phone] DAGMAR,ZIA ERT PATIENT MEDICARE (WNR) MEDICARE () PART A May 15, 2002 PART A [id number] [phone] DAGMAR,ZIA ERT PATIENT MEDICARE (WNR) MEDICARE () PART B May 15, 2002 PART B [id number] [phone] DAGMAR,ZIA ERT PATIENT MEDICARE (WNR) MEDICARE () PART A May 15, 2002 PART A [id number] DAGMAR,ZIA ERT PATIENT MEDICARE (WNR) MEDICARE () PART A May 15, 2002 PART A [id number] DAGMAR,ZIA ERT PATIENT MEDICARE (WNR) MEDICARE () PART B May 15, 2002 PART B [id number] DAGMAR,ZIA ERT PATIENT MEDICARE (WNR) MEDICARE () PART A May 15, 2002 PART A [id number] DAGMAR,ZIA ERT PATIENT MEDICARE (WNR) MEDICARE () PART B May 15, 2002 PART B [id number] [phone] DAGMAR,ZIA ERT PATIENT Selected Encounter This section includes the information on record at [place] for the Encounter. Date/Time Encounter Type Encounter Description Reason Provider Source October 16, 2023 01:00 PM Outpatient Encounter AUDIOLOGY ICD-10-CM Z02.89 Encounter for other administrative examinations DOROTA SHEEHAN [facility] Encounter Template Text not used by [place] Assessments - Encounter Diagnoses This section includes the primary and secondary diagnoses documented for the Encounter. Date/Time Primary/Secondary Diagnosis Diagnosis Name Provider Source October 16, 2023 02:09 PM PRIMARY Encounter for other administrative examinations DOROTA SHEEHAN [place] [facility] [place] [facility] October 16, 2023 02:09 PM SECONDARY Sensorineural hearing loss, bilateral IVONCZEK,DOROTA Azar [place] [facility] [place] [facility] October 16, 2023 02:09 PM SECONDARY Tinnitus, bilateral IVONCZEK,DOROTA Azar [place] [facility] [place] [facility] Plan of Treatment: Future Appointments (+ 6 months) and Future Tests (+/- 45 days) The Plan of Treatment section includes future care activities for the patient from all [place] treatmentfacritical access hospitalities. This section includes future appointments and future orders which are active, pending or scheduled. Future Appointments This section includes appointments that were scheduled to occur 6 months from the date of the Encounter, up to a maximum of 20 appointments. The data comes from all [place] treatment facilities. Appointment Date/Time Appointment Type Appointme nt Facility Name Dec 15, 2023 02:30 PM AMBULATORY - MEDICINE [facility] Dec 30, 2023 03:00 PM [facility]UL[facility] - [facility] Mar 02, 2024 03:00 PM AMBULATORY - MEDICINE [facility] Lab Results: +/- 30 days of the encounter This section includes the Chemistry and Hematology Lab Results on record with [place] for the patient. Radiology Reports and Pathology Reports are provided separately, in subsequent sections. Lab Results This section contains the Chemistry/Hematology Results that were resulted 30 days before or 30 daysafter the date of the Encounter. Date/Time Source Result Type Result - Unit Interpretation Reference Range Comment Sep 23, 2023 01:35 PM [facility] COVID-19 FLU/RSV DIAGNOSTIC PANEL Speci men Type: NASOPHARYNX Comment: This test is authorized for emergency use only. False negative results may occur if virus is present at levels below the analytical limit of detection.Nega tive results do not preclude SARS-CoV-2, influenza or RSV infection and should not be used as the sole basis for treatment or other patient management decisions.[facility] mone FLUVID: HCPs: https://www.fd a.gov/media/ 5835/download. Patients: https://www.[employer] a.gov/media/ 7648/download Ordering Provider: CHATO ADHIKARI Report Released Date/Time: Sep 23, 2023 01:14 PM Reporting Lab: [place] [facility] [address] [facility] [address] Performing Lab: [facility] [address] [facility] [address] COVID-19 PCR (FLUVID) NEGATIVE NEGATIVE FLU A PCR (FLUVID) NEGATIVE FLU B PCR (FLUVID) NEGATIVE RSV PCR (FLUVID) NEGATIVE Social History: Smoking Status (Most current) and Tobacco Use (All prior to encounter date) This section includes the most current, and the historical, smoking and tobacco- related health factors from the [place] facility where the Encounter took place. Current Smoking Status This section includes the most current smoking, or tobacco-related health factor, from the [place] facility where the Encounter took place. Date/Time Current Smoking Status Comment Facil ity Apr 15, 2022 01:00 PM VA-TOBACCO NEVER USED [facility] Radiology Reports: +/- 30 days of [...] the Encounter. The data comes from all [place] treatment facilities. Date/Time Radiology Report Provider Source Sep 24, 2023 03:11 PM CHEST (2 VIEWS): ORLY LEAVITT [id number] -[id number] M Ex Date: SEP 24, 2023@15:11 Req Phys: CHATO ADHIKARI Pat Loc: CWM/SO/SICK CALL [employer] (Req'g Loc Img Loc: [facility] 1 Service: Unknown (Case 377 COMPLETE) CHEST (2 VIEWS) (RAD Detailed) CPT:72478 Reason for Study: wheezing, cough, SOB Clinical History: Covering resident, fellow, [employer] or attending: Chato Adhikari NP [place] Pager: [phone] Backup pager: History: Report Status: Verified Date Reported: SEP 24, 2023 Date Verified: SEP 24, 2023 Painting Instructor E-Sig:/ES/LATRICE DUNBAR JR Report: Study: PA and [...] Primary Interpreting Staff: LATRICE DUNBAR JR, Radiologist (Painting Instructor) /LATRICE BAGLEY JR [facility] Encounter Notes: All associated encounter notes This section contains the clinical notes associated to the Encounter. Date/Time Encounter Note(s) Provider Source October 16, 2023 01:00 PM C & P EXAMINATION NOTE: LOCAL TITLE: COMPENSATION AND PENSION EXAM STANDARD TITLE: C & P EXAMINATION NOTE DATE OF NOTE: OCTOBER 16, 2023@13:00 ENTRY DATE: OCTOBER 16, 2023@14:08:14 AUTHOR: JAJA SHEEHAN COSIGNER: URGENCY: STATUS: COMPLETED COMPENSATION AND PENSION EXAM Has ADDENDA Hearing Loss and Tinnitus Disability Benefits Questionnaire Name of patient/[place]: DAGMAR ORLY CATHY Is this DBQ being completed in conjunction with a [place] [id number], C&P Examination Request? [X] Yes [ ] No How was the examination completed? (check all that apply) [X] In-person examination [X] Records reviewed [ ] Examination via approved video telehealth [ ] Other, please specify in comments box Comments: BRIDGET and Evidence Review Indicate method used to obtain medical information to complete this document: [ ] Review of available records (without in-person or video telehealth examination) using the Acceptable Clinical Evidence (BRIDGET) process because the existing medical evidence provided sufficient information on which to prepare the questionnaire and such an examination will likely provide no additional relevant evidence. [ ] Review of available records in conjunction with an interview with the [place] (without in-person or telehealth examination) using the BRIDGET process because the existing medical evidence supplemented with an interview provided sufficient information on which to prepare the questionnaire and such an examination would likely provide no additional relevant evidence. Evidence Review Evidence reviewed (check all that apply): [X] [facility] electronic health record [X] [place] e-folder This exam is for: Hearing loss and/or tinnitus (veterans' coordinator, performing current exam) SECTION 1: HEARING LOSS (HL) --- 1. Objective Findings a. Puretone thresholds in decibels (air conduction): RIGHT EAR + + A B C D E F G ========+========+======= =+========+========+====== ==+========+========+ 500 1000 2000 3000 4000 6000 8000 Avg Hz Hz* Hz Hz Hz Hz Hz Hz (B-E) ========+========+======= =+========+========+====== ==+========+======== 50 45 45 55 55 65 80 [id number] + + LEFT EAR + + A B C D E F G ========+========+======= =+========+========+====== ==+========+========+ 500 1000 2000 3000 4000 6000 8000 Avg Hz Hz* Hz Hz Hz Hz Hz Hz (B-E) ========+========+======= =+========+========+====== ==+========+======== 40 50 50 55 50 75 80 [id number] + + * The puretone threshold at 500 Hz is not used in determining the evaluation but is used in determining whether or not a ratable hearing loss exists. The average of B, C, D, and E. CNT - Could Not Test b. Were there one or more frequency(ies) that could not be tested: No c. Validity of puretone test results: Test results are valid for rating purposes. d. Speech Discrimination Score ([place] C[place] word list): + + RIGHT EAR 86% +========= LEFT EAR 86% + + e. Appropriateness of Use of Word Recognition Score ([place] C[place] word list): Right Ear: Is Word Discrimination Score available? Yes Word Discrimination Score appropriateness: Use of speech recognition score is appropriate for this . Left Ear: Is Word Discrimination Score available? Yes Word Discrimination Score appropriateness: Use of word recognition score is appropriate for this [place]. f. Audiologic Findings Summary of Immittance (Tympanometry) Findings: + + RIGHT EAR LEFT EAR +=== += Acoustic immittance [X] Normal [ ] Abnormal [ ] Normal [X] Abnormal +=== += Ipsilateral Acoustic Reflexes [ ] Normal [X] Abnormal [ ] Normal [X] Abnormal +=== += Contralateral Acoustic Reflexes [ ] Normal [X] Abnormal [ ] Normal [X] Abnormal +=== += Unable to interpret reflexes due to [ ] [ ] artifact +=== += Unable to obtain/ maintain seal [ ] [ ] + + 2. Diagnosis RIGHT EAR --------- [ ] Normal hearing [ ] Conductive hearing loss ICD code: [ ] Mixed hearing loss ICD code: [X] Sensorineural hearing loss (in the frequency range of 500-4000 Hz)* ICD code: H90.3 [ ] Sensorineural hearing loss (in the frequency range of 6000 Hz or higher frequencies) ICD code: [ ] Significant changes in hearing thresholds in service LEFT EAR -------- [ ] Normal hearing [ ] Conductive hearing loss ICD code: [ ] Mixed hearing loss ICD code: [X] Sensorineural hearing loss (in the frequency range of 500-4000 Hz)* ICD code: H90.3 [ ] Sensorineural hearing loss (in the frequency range of 6000 Hz or higher frequencies) ICD code: [ ] Significant changes in hearing thresholds in service NOTES: * The [place] may have hearing loss at a level that is not considered to be a disability for VA purposes. This can occur when the auditory thresholds are greater than 25 dB at one or more frequencies in the 500-4000 Hz range. The may have impaired hearing, but it does not meet the criteria to be considered a disability for VA purposes. For VA purposes, the diagnosis of hearing impairment is based upon testing at frequency ranges of 500, 1000, 2000, 3000, and 4000 Hz. If there is no HL in the 500-4000 Hz range, but there is HL above 4000 Hz, check this box. The [place] may have a significant change in hearing threshold in service, but it does not meet the criteria to be considered a disability for VA purposes. (A significant change in hearing threshold may indicate noise exposure or acoustic trauma.) 3. Etiology [X] Etiology opinion not indicated as: [X] Service connected condition 4. Functional impact of hearing loss Does the 's hearing loss impact ordinary conditions of daily life, including ability to work: Yes If yes, describe impact in the [place]'s own words: [place] reports, My yells at me all the time. 5. Remarks, if any, pertaining to hearing loss: No response provided SECTION 2: TINNITUS 1. Medical history Does the report recurrent tinnitus: Yes Date and circumstances of onset of tinnitus: reports longstanding, intermittent pinging tinnitus in both ears. 2. Etiology of tinnitus [X] Etiology opinion not indicated as: [X] Service connected condition 3. Functional impact of tinnitus ------ Does the 's tinnitus impact ordinary conditions of daily life, including ability to work: No 4. Remarks, if any, pertaining to tinnitus:: No response provided NOTE: [place] may request additional medical information, including additional examinations if necessary to complete VA's review of the [place]'s application. /radhames/ Joni Buckner CCC-A Senior Financial Analyst Signed: 10/16/2023 14:08 10/16/2023 ADDENDUM STATUS: COMPLETED This is an increase exam. /radhames/ Joni Buckner CCC-A Senior Financial Analyst Signed: 10/16/2023 14:09 JAJA SHEEHAN [place] CNTL [facility]
--- OUTSIDE RECORDS SUMMARY | 2024-05-24 13:15 | XMS_ITS | Encounter Summary ---
Author Name [place] Address [address] [place] [address] Care Team Providers Care Spanish Interpreter Name Role Phone MARGARITA FLOREZ Primary Care [...] Bejarano ALVA [place] MEDICARE SUPPLEMEN [facility] Dec 13, 2013 [id number] DAGMAR,ZIA ERT PATIENT [place]BS [place] MED[place] SUPP[place]MEN [facility] [facility] November 06, 2007 [id number] [phone] DAGMAR,ZIA ERT PATIENT [place]PP[place] [facility] 2 November 06, 2007 [id number] [phone] DAGMAR,ZIA ERT PAT[place] [facility] 2 November 06, 2007 [id number] [phone] DAGMAR,ZIA ERT PATIENT BCBS OF [facility] MEDICARE SUPPLEMEN [facility] Dec 13, 2013 [id number] DAGMAR,ZIA ERT PATIENT [facility] MEDICARE [facility]AL[facility] AN/MX Dec 13, 2008 [id number] DAGMAR,ZIA ERT PATIENT MEDICARE (WNR) MEDICARE (M) PART B May 15, 2012 PART B [id number] DAGMAR,ZIA ERT PATIENT MEDICARE (WNR) MEDICARE (M) PART A May 15, 2002 PART A [id number] DAGMAR,ZIA ERT PATIENT MEDICARE (WNR) MEDICARE (M) PART B May 15, 2002 PART B [id number] DAGMAR,ZIA ERT PATIENT MEDICARE (WNR) MEDICARE (M) PART A May 15, 2002 PART A [id number] DAGMAR,ZIA ERT PATIENT MEDICARE (WNR) MEDICARE (M) PART B May 15, 2002 PART B [id number] [phone] DAGMAR,ZIA ERT PATIENT MEDICARE (WNR) MEDICARE (M) PART A May 15, 2002 PART A [id number] DAGMAR,ZIA ERT PATIENT MEDICARE (WNR) MEDICARE (M) PART B May 15, 2002 PART B [id number] DAGMAR,ZIA ERT PATIENT MEDICARE (WNR) MEDICARE (M) PART A May 15, 2002 PART A [id number] DAGMAR,ZIA ERT PATIENT Selected Encounter This section includes the information on record at [place] for the Encounter. Date/Time Encounter Type Encounter Description Reason Pro vider Source November 04, 2023 05:28 PM Outpatient Encounter ADMIN PAT ACTIVTIES (MASNONCT) [...] 20 appointments. The data comes from all [place] treatment facilities. Appointment Date/Time Appointment Type Appointme nt Facility Name Dec 15, 2023 02:30 PM [facility]ORY [facility]INE [facility] Dec 30, 2023 03:00 PM AMBULATORY - MEDICINE [place] [facility] [place] [facility] Mar 02, 2024 03:00 PM AMBULATORY - MEDICINE [facility] Apr 27, 2024 10:00 AM [facility] [place] [facility] Lab Results: +/- 30 days of the encounter This section includes the Chemistry and Hematology Lab Results on record with [place] for the patient. Radiology Reports and Pathology Reports are provided separately, in subsequent sections. Lab Results This section contains the Chemistry/Hematology Results that were resulted 30 days before or 30 daysafter the date of the Encounter. Date/Time Source Result Type Result - Unit Interpretation Reference Range Comment Nov 25, 2023 09:49 AM [facility] PSA Specimen Type: SERUM No comment entered. Ordering Provider: MARGARITA DIAMOND Report Released Date/Time: Sep 15, 2023 01:00 PM Reporting Lab: [facility] [address] [address] Performing Lab: [facility] [place] [address] [address] PSA 1.00 ng/mL 0.00-4.00 Nov 25, 2023 09:49 AM [facility] VITAMIN D (25-OH) Specimen Type: SERUM No comment entered. Ordering Provider: MARGARITA DIAMOND Report Released Date/Time: Sep 15, 2023 12:57 PM Reporting Lab: [facility] [address] [facility] [address] Performing Lab: [facility] [place] [address] [address] VITAMIN D (25-OH) 28 ng/mL 20-50 Nov 25, 2023 09:49 AM [facility] FERRITIN Specimen Type: SERUM No comment entered. Ordering Provider: MARGARITA DIAMOND Report Released Date/Time: Sep 15, 2023 12:57 PM Reporting Lab: [facility] [address] [address] Performing Lab: [facility] [address] [address] FERRITIN 38 ng/mL 20-300 Nov 25, 2023 09:49 AM [facility] HEMOGLOBIN A1C PANEL Specimen Type: BLOOD Comment: Values obtained from A1C measurements can vary. For atypical A1C assays, a reported value of 7.0 could actually be between 6.72 and 7.28 if measured by a reference method. A reported value of 9.0 could actually be between 8.73 and 9.27. Ref: http://www.ngs p.org/CAPdata. asp Ordering Provider: MARGARITA DIAMOND Report Released Date/Time: Sep 15, 2023 12:57 PM Reporting Lab: [address] [address] Performing Lab: [address] [address] HEMOGLOBIN A1C 6.7 H 4.0-5.6 Nov 25, 2023 09:49 AM [facility] MAGNESIUM Specimen Type: SERUM No comment entered. Ordering Provider: MARGARITA DIAMOND Report Released Date/Time: Sep 15, 2023 12:57 PM Reporting Lab: [address] [address] Performing Lab: [facility] [address] [address] MAGNESIUM 1.6 mg/dL 1.6-2.6 Nov 25, 2023 09:49 AM [facility] LIVER FUNCTION Specimen Type: SERUM No comment entered. Ordering Provider: MARGARITA DIAMOND Report Released Date/Time: Sep 15, 2023 12:57 PM Reporting Lab: [facility] [address] [address] Performing Lab: [address] [address] PROTEIN,TOTAL 6.8 g/dL 6.0-8.3 ALBUMIN 3.6 g/dL 3.5-5.0 ALKALINE PHOSPHATASE 38 U/L L 40-150 AST 21 U/L 5-34 ALT 21 U/L BILIRUBIN, TOTAL 0.4 mg/dL 0.2-1.2 Nov 25, 2023 09:49 AM [facility] IRON & TIBC PANEL Specimen Type: SERUM No comment entered. Ordering Provider: MARGARITA DIAMOND Report Released Date/Time: Sep 15, 2023 12:57 PM Reporting Lab: [address] [address] Performing Lab: [address] [address] TIBC 430 ug/dL 204-475 IRON 78 ug/dL 40-160 Transferrin Saturation 18.1 L 20.0-50.0 Nov 25, 2023 09:49 AM [facility] MICROALBUMIN CREATININE RATIO PANEL Spe cimen Type: URINE No comment entered. Ordering Provider: MARGARITA DIAMOND Report Released Date/Time: Sep 15, 2023 12:57 PM Reporting Lab: [address] [address] Performing Lab: [address] [address] MICROALBUMIN/C REATININE RATIO canc mg/g 0-29.9 MICROALBUMIN,Q UANTITATIVE < 0.5 mg/dL RR UNAVAIL CREATININE URINE 57.10 mg/dL Nov 25, 2023 09:49 AM [facility] VITAMIN B12 Specimen Type: SERUM No comment entered. Ordering Provider: MARGARITA DIAMOND Report Released Date/Time: Sep 15, 2023 12:57 PM Reporting Lab: [address] [address] Performing Lab: [address] [address] VITAMIN B12 884 pg/mL 200-900 Nov 25, 2023 09:49 AM [facility] CBC AND DIFF (AUTO) Specimen Type: BLOOD No comment entered. Ordering Provider: MARGARITA DIAMOND Report Released Date/Time: Sep 15, 2023 12:57 PM Reporting Lab: [facility] [address] [address] Performing Lab: [facility] [address] [address] WBC 7.72 10*3/uL 4.50-11.00 RBC 4.35 10*6/uL 4.23-5.66 HGB 12.7 g/dL L 12.8-17 HCT 39.1 L 39.2-50.4 MCV 89.9 fL 82-99 MCHC 32.5 g/dL 30.8-35.1 PLT 187 10*3/uL 140-360 RDW-CV 14.2 12.0-16.0 [place], Abs 0.63 10*3/uL 0.30-1.10 MCH 29.2 pg 26.2-32.6 Neut % 62.7 43.7-75.8 LYMPH % 24.5 14.0-42.3 [place] % 8.2 5.1-13.7 Eos % 3.5 0.4-6.8 Baso % 0.6 0.1-2.0 Neut, Abs 4.84 10*3/uL 2.20-7.60 Lymph, Abs 1.89 10*3/uL 1.00-3.20 Eos, Abs 0.27 10*3/uL 0.03-0.44 Baso, Abs 0.05 10*3/uL 0.01-0.13 Immature Gran % 0.5 0.0-0.7 Immature Gran, Abs 0.04 10*3/uL 0.00-0.06 Nov 25, 2023 09:49 AM [facility] LIPID PANEL, NON FASTING Specimen Type: SERUM No comment entered. Ordering Provider: MARGARITA DIAMOND Report Released Date/Time: Sep 15, 2023 12:57 PM Reporting Lab: [facility] [address] [address] [address] Performing Lab: [address] [address] CHOLESTEROL 120 mg/dL TRIGLYCERIDE 191 mg/dL H 0-150 LDL calculated 46 mg/dL 0-129 CHOL/HDL 3.3 HDL CHOLESTEROL 36 mg/dL L 40-60 Nov 25, 2023 09:49 AM [facility] BASIC METABOLIC PANEL (non-fasting) Spe cimen Type: SERUM No comment entered. Ordering Provider: MARGARITA DIAMOND Report Released Date/Time: Sep 15, 2023 12:57 PM Reporting Lab: [facility] [address] [address] Performing Lab: [facility] [address] [address] [address] UREA NITROGEN 29 mg/dL H 7-25 GLUCOSE 101 mg/dL H 65-100 SODIUM 136 mmol/L 135-145 POTASSIUM 4.2 mmol/L 3.5-5.0 CHLORIDE 103 mmol/L 100-110 CO2 26 meq/L 20-30 CREATININE, Serum 1.50 mg/dL H 0.50-1.40 eGFR(CKD-EPI 2020) 45 mL/min L >60 Social History: Smoking Status (Most current) and Tobacco Use (All prior to encounter date) This section includes the most current, and the historical, smoking and tobacco- related health factors from the [place] facility where the Encounter took place. Current Smoking Status This section includes the most current smoking, or tobacco-related health factor, from the [place] facility where the Encounter took place. Date/Time Current Smoking Status Comment Jesus fall Apr 15, 2022 01:00 PM VA-TOBACCO NEVER USED [facility] Encounter Notes: All associated encounter notes This section contains the clinical notes associated to the Encounter. Date/Time Encounter Note(s) Provider Source November 04, 2023 05:28 PM PHARMACY NOTE: LOCAL TITLE: V1 PHARMACY CUSTOMER CARE MEDICATION RENEWAL STANDARD TITLE: PHARMACY NOTE DATE OF NOTE: NOVEMBER 04, 2023@17:28 ENTRY DATE: NOVEMBER 04, 2023@17:29 AUTHOR: RYDER RODRIGUEZ EXP COSIGNER: URGENCY: STATUS: COMPLETED Date: October Division: [facility] referred by Pharmacy Call Center for medication renewal: Non-controlled/maintenan ce medication Medications requested: [id number]$ GABAPENTIN 300MG CAP [place] has 1 day of medication remaining, please alert outpatient pharmacy when order is placed so it can be expedited Defer to primary care provider To be mailed . Please review and renew if appropriate. *This note was generated by [facility] Pharmacy Customer Care. If you have any questions or need assistance, do not contact this author. Please refer all questions to your local, on-site pharmacy departments. /radhames/ RYDER RODRIGUEZ [facility] [employer] Operator, [place]/Pharmacy Customer Care Signed: 11/04/2023 17:30 Receipt Acknowledged By: 11/05/2023 11:14 /es/ LENNOX PEARCE RN REGISTERED NURSE 11/06/2023 14:58 /es/ MARGARITA FLOREZ MD PHYSICIAN RYDER RODRIGUEZ [place] [facility]
--- OUTSIDE RECORDS SUMMARY | 2024-05-24 13:15 | XMS_ITS | Encounter Summary ---
Author Name [place] Address [address] [place] [address] Care Team Providers Care Electrical Panel Builder Name Role Phone MARGARITA FLOREZ Primary Care [...] Relationship to Policy Bejarano [place] MED[place]ARE SUPPLEMEN [facility] Dec 13, 2013 [id number] DAGMAR,ZIA ERT PATIENT BCBS [place] MEDICARE SUPPLEMEN [facility] November 06, 2007 [id number] DAGMAR,ZIA ERT PATIENT [place] SUPP[place] [facility]EX 2 November 06, 2007 [id number] DAGMAR,ZIA ERT PATIENT [place]PP[place] [facility] 2 November 06, 2007 [id number] DAGMAR,ZIA ERT PATIENT BCBS OF [facility] MEDICARE SUPPLEMEN [facility] Dec 13, 2013 [id number] [phone] DAGMAR,ZIA ERT PATIENT BCBS OF [facility] MEDICARE SUPPLEMEN [facility] AN/MX Dec 13, 2008 [id number] DAGMAR,ZIA ERT PATIENT MEDICARE (WNR) MEDICARE () PART B May 15, 2012 PART B [id number] DAGMAR,ZIA ERT PATIENT MEDICARE (WNR) MEDICARE () PART A May 15, 2002 PART A [id number] DAGMAR,ZIA ERT PATIENT MEDICARE (WNR) MEDICARE () PART B May 15, 2002 PART B [id number] DAGMAR,ZIA ERT PATIENT MEDICARE (WNR) MEDICARE () PART A May 15, 2002 PART A [id number] DAGMAR,ZIA ERT PATIENT MEDICARE (WNR) MEDICARE () PART A May 15, 2002 PART A [id number] DAGMAR,ZIA ERT PATIENT MEDICARE (WNR) MEDICARE () PART B May 15, 2002 PART B [id number] [phone] DAGMAR,ZIA ERT PATIENT MEDICARE (WNR) MEDICARE () PART A May 15, 2002 PART A [id number] DAGMAR,ZIA ERT PATIENT MEDICARE (WNR) MEDICARE () PART B May 15, 2002 PART B [id number] DAGMAR,ZIA ERT PATIENT Selected Encounter This section includes the information on record at [place] for the Encounter. Date/Time Encounter Type Encounter Description Reason Provider Source Sep 18, 2023 12:55 PM Outpatient Encounter PROSTHETICS/ORTHOTI CS MEGAN Narvaez,MARGARITA Santillan [...] - MEDICINE [place] [facility] [facility] October 16, 2023 01:00 PM AMBUL[place] [facility] [facility] Dec 15, 2023 02:30 PM [facility] Dec 30, 2023 03:00 PM [place] [facility] Mar 02, 2024 03:00 PM AM[facility]ULATORY - [facility]ICINE [facility] Lab Results: +/- 30 days [...] Range Comment Sep 23, 2023 01:35 PM [facility] COVID-19 FLU/RSV DIAGNOSTIC PANEL Speci men Type: NASOPHARYNX Comment: This test is authorized for emergency use only. False negative results may occur if virus is present at levels below the analytical limit of detection.Nega tive results do not preclude SARS-CoV-2, influenza or RSV infection and should not be used as the sole basis for treatment or other patient management decisions.[facility] mone FLUVID: HCPs: https://www.fd a.gov/media/ 1747/download. Patients: https://www.[employer] a.gov/media/ 489/download Ordering Provider: SAMREEN ADHIKARI Report Released Date/Time: Sep 23, 2023 01:14 PM Reporting Lab: [place] [facility] [facility] [place] [address] [address] Performing Lab: [address] [address] COVID-19 PCR (FLUVID) NEGATIVE NEGATIVE FLU A [...] Sep 16, 2023 01:09 PM Reporting Lab: [address] [address] Performing Lab: [address] [address] HEMOGLOBIN A1C 6.8 H 4.0-5.6 Sep 16, 2023 01:56 PM [facility] BASIC METABOLIC PANEL (non-fasting) Specimen Type: SERUM No comment entered. Ordering Provider: NIK GILL Report Released Date/Time: Sep 16, 2023 01:09 PM Reporting Lab: [address] [address] Performing Lab: [address] [address] UREA NITROGEN 25 mg/dL 7-25 GLUCOSE 234 [...] Sep 16, 2023 01:09 PM Reporting Lab: [facility] [address] [facility] [address] Performing Lab: [facility] [address] [facility] [address] WBC 7.86 10*3/uL 4.50-11.00 RBC 4.28 10*6/uL [...] the Encounter. The data comes from all [place] treatment facilities. Date/Time Radiology Report Provider Source Sep 24, 2023 03:11 PM CHEST (2 VIEWS): ORLY LEAVITT [id number] [id number] M Exm Date: SEP 24, 2023@15:11 Req Phys: SAMREEN ADHIKARI Loc: CWM/SO/SICK CALL LINOLEUM TILE FLOOR LAYER (Req'g Loc Img Loc: [facility]BUILD[facility] 1 Service: Unknown (Case [id number] COMPLETE) CHEST (2 VIEWS) (RAD Detailed) CPT:00689 Reason for Study: wheezing, cough, SOB Clinical History: Covering resident, fellow, LINOLEUM TILE FLOOR LAYER or attending: Samreen Adhikari NP [place] Pager: [phone] Backup pager: History: Report Status: Verified Date Reported: SEP 24, 2023 Date Verified: SEP 24, 2023 Steam Trap Worker E-Sig:/ES/LATRICE DUNBAR JR Report: Study: PA and [...] Primary Interpreting Staff: LATRICE DUNBAR JR, Radiologist (Steam Trap Worker) /LATRICE BAGLEY JR [place] [facility]
--- OUTSIDE RECORDS SUMMARY | 2024-05-24 13:15 | XMS_ITS | Encounter Summary ---
Author Name [facility] [place] Organization [place] Address [address] [place] [id number] Care Team Providers Care Geophysical Party Chief Name Role Phone MARGARITA FLOREZ Primary [...] Policy Bejarano ALVA [place] [facility] Dec 13, 2013 [id number] [phone] DAGMAR,ZIA ERT PATIENT [place]BS [place] MEDICARE SUPPLEMEN [facility] November 06, 2007 [id number] DAGMAR,ZIA ERT PATIENT [place] MED[place] SUPPLEMEN [facility] 2 November 06, 2007 [id number] DAGMAR,ZIA ERT PAT[place] SUPPLEMEN [facility] 2 November 06, 2007 [id number] DAGMAR,ZIA ERT PATIENT BCBS OF [facility] MEDICARE SUPPLEMEN [facility] Dec 13, 2013 [id number] [phone] DAGMAR,ZIA ERT PATIENT [place] SUPPLEMEN [facility]/ WHITM AN/MX Dec 13, 2008 [id number] [phone] DAGMAR,ZIA ERT PATIENT MEDICARE (WNR) MEDICARE () PART B May 15, 2012 PART B [id number] DAGMAR,ZIA ERT PATIENT MEDICARE (WNR) MEDICARE () PART A May 15, 2002 PART A [id number] [phone] DAGMAR,ZIA ERT PATIENT MEDICARE (WNR) MEDICARE (M) PART B May 15, 2002 PART B [id number] DAGMAR,ZIA ERT PATIENT MEDICARE (WNR) MEDICARE () PART A May 15, 2002 PART A [id number] [phone] DAGMAR,ZIA ERT PATIENT MEDICARE (WNR) MEDICARE () PART B May 15, 2002 PART B [id number] [phone] DAGMAR,ZIA ERT PATIENT MEDICARE (WNR) MEDICARE () PART A May 15, 2002 PART A [id number] DAGMAR,ZIA ERT PATIENT MEDICARE (WNR) MEDICARE () PART B May 15, 2002 PART B [id number] [phone] DAGMAR,ZIA ERT PATIENT MEDICARE (WNR) MEDICARE () PART A May 15, 2002 PART A [id number] [phone] DAGMAR,ZIA ERT PATIENT Selected Encounter This section includes the information on record at [place] for the Encounter. Date/Time Encounter Type Encounter Description Reason Pro vider Source Dec 15, 2023 02:30 PM Outpatient Encounter PRIMARY CARE/MEDICINE IHE Encounter [...] 20 appointments. The data comes from all [place] treatment facilities. Appointment Date/Time Appointment Type Appointme nt Facility Name Dec 30, 2023 03:00 PM AMBULATORY - MEDICINE [place] [facility] Mar 02, 2024 03:00 PM AMBULATORY - MEDICINE [facility] Apr 27, 2024 10:00 AM AMBULATORY - MEDICINE [facility] Lab Results: +/- 30 days of the encounter This section includes the Chemistry and Hematology Lab Results on record with [place] for the patient. Radiology Reports and Pathology Reports are provided separately, in subsequent sections. Lab Results This section contains the Chemistry/Hematology Results that were resulted 30 days before or 30 daysafter the date of the Encounter. Date/Time Source Result Type Result - Unit Interpretation Reference Range Comment Nov 25, 2023 09:49 AM [facility] PSA Specimen Type: SERUM No comment entered. Ordering Provider: MARGARITA DIAMOND Report Released Date/Time: Sep 15, 2023 01:00 PM Reporting Lab: [facility] [address] [facility] [address] Performing Lab: [address] [address] PSA 1.00 ng/mL 0.00-4.00 Nov 25, 2023 09:49 AM [facility] VITAMIN D (25-OH) Specimen Type: SERUM No comment entered. Ordering Provider: MARGARITA DIAMOND Report Released Date/Time: Sep 15, 2023 12:57 PM Reporting Lab: [facility] [address] [facility] [address] Performing Lab: [address] [address] VITAMIN D (25-OH) 28 ng/mL 20-50 Nov 25, 2023 09:49 AM [facility] HEMOGLOBIN A1C PANEL Specimen Type: BLOOD Comment: [...] Sep 15, 2023 12:57 PM Reporting Lab: [facility] [address] [address] Performing Lab: [facility] [address] HEMOGLOBIN A1C 6.7 H 4.0-5.6 Nov 25, 2023 09:49 AM [facility] FERRITIN Specimen Type: SERUM No comment entered. Ordering Provider: MARGARITA DIAMOND Report Released Date/Time: Sep 15, 2023 12:57 PM Reporting Lab: [facility] [address] [address] Performing Lab: [facility] [address] [address] FERRITIN 38 ng/mL 20-300 Nov 25, 2023 09:49 AM [facility] LIVER FUNCTION Specimen Type: SERUM No comment entered. Ordering Provider: MARGARITA DIAMOND Report Released Date/Time: Sep 15, 2023 12:57 PM Reporting Lab: [facility]ITALRUNITED [facility]ITALTRN [facility]ENTERUSETS [address] [address] Performing Lab: [facility] [address] PROTEIN,TOTAL 6.8 g/dL 6.0-8.3 ALBUMIN 3.6 g/dL 3.5-5.0 ALKALINE PHOSPHATASE 38 U/L L 40-150 AST 21 U/L 5-34 ALT 21 U/L BILIRUBIN, TOTAL 0.4 mg/dL 0.2-1.2 Nov 25, 2023 09:49 AM [facility] LIPID PANEL, NON FASTING Specimen Type: SERUM No comment entered. Ordering Provider: MARGARITA DIAMOND Report Released Date/Time: Sep 15, 2023 12:57 PM Reporting Lab: [facility] [address] [address] Performing Lab: [facility] [address] [facility] [address] CHOLESTEROL 120 mg/dL TRIGLYCERIDE 191 mg/dL H 0-150 LDL calculated 46 mg/dL 0-129 CHOL/HDL 3.3 HDL CHOLESTEROL 36 mg/dL L 40-60 Nov 25, 2023 09:49 AM [facility] IRON & TIBC PANEL Specimen Type: SERUM No comment entered. Ordering Provider: MARGARITA DIAMOND Report Released Date/Time: Sep 15, 2023 12:57 PM Reporting Lab: [facility] [address] [facility] [address] Performing Lab: [address] [address] TIBC 430 ug/dL 204-475 IRON 78 ug/dL 40-160 Transferrin Saturation 18.1 L 20.0-50.0 Nov 25, 2023 09:49 AM [facility] MAGNESIUM Specimen Type: SERUM No comment entered. Ordering Provider: MARGARITA DIAMOND Report Released Date/Time: Sep 15, 2023 12:57 PM Reporting Lab: [address] [address] Performing Lab: [address] [address] MAGNESIUM 1.6 mg/dL 1.6-2.6 Nov 25, 2023 09:49 AM [facility] MICROALBUMIN CREATININE RATIO PANEL Spe cimen Type: URINE No comment entered. Ordering Provider: MARGARITA DIAMOND Report Released Date/Time: Sep 15, 2023 12:57 PM Reporting Lab: [address] [address] Performing Lab: [address] [address] MICROALBUMIN/C REATININE RATIO canc mg/g 0-29.9 MICROALBUMIN,Q UANTITATIVE < 0.5 mg/dL RR UNAVAIL CREATININE URINE 57.10 mg/dL Nov 25, 2023 09:49 AM [facility] VITAMIN B12 Specimen Type: SERUM No comment entered. Ordering Provider: MARGARTIA DIAMOND Report Released Date/Time: Sep 15, 2023 12:57 PM Reporting Lab: [address] [address] Performing Lab: [address] [address] VITAMIN B12 884 pg/mL 200-900 Nov 25, 2023 09:49 AM [facility] CBC AND DIFF (AUTO) Specimen Type: BLOOD No comment entered. Ordering Provider: MARGARITA DIAMOND Report Released Date/Time: Sep 15, 2023 12:57 PM Reporting Lab: [address] [address] Performing Lab: [address] [address] WBC 7.72 10*3/uL 4.50-11.00 RBC 4.35 10*6/uL 4.23-5.66 HGB 12.7 g/dL L 12.8-17 HCT 39.1 L 39.2-50.4 MCV 89.9 fL 82-99 MCHC 32.5 g/dL 30.8-35.1 PLT 187 10*3/uL 140-360 RDW-CV 14.2 12.0-16.0 Ralls, Abs 0.63 10*3/uL 0.30-1.10 MCH 29.2 pg 26.2-32.6 Neut % 62.7 43.7-75.8 LYMPH % 24.5 14.0-42.3 Ralls % 8.2 5.1-13.7 Eos % 3.5 0.4-6.8 Baso % 0.6 0.1-2.0 Neut, Abs 4.84 10*3/uL 2.20-7.60 Lymph, Abs 1.89 10*3/uL 1.00-3.20 Eos, Abs 0.27 10*3/uL 0.03-0.44 Baso, Abs 0.05 10*3/uL 0.01-0.13 Immature Gran % 0.5 0.0-0.7 Immature Gran, Abs 0.04 10*3/uL 0.00-0.06 Nov 25, 2023 09:49 AM [facility] BASIC METABOLIC PANEL (non-fasting) Spe cimen Type: SERUM No comment entered. Ordering Provider: MARGARITA DIAMOND Report Released Date/Time: Sep 15, 2023 12:57 PM Reporting Lab: [facility] [address] [facility] [address] Performing Lab: [facility] [address] [facility] [address] UREA NITROGEN 29 mg/dL H 7-25 GLUCOSE [...] 15, 2022 01:00 PM VA-TOBACCO NEVER USED [facility] Encounter Notes: All associated encounter notes This section contains the clinical notes associated to the Encounter. Date/Time Encounter Note(s) Provider Source Dec 15, 2023 03:13 PM PREVENTIVE MEDICIN E NURSING NOTE: LOCAL TITLE: CLINICAL REMINDERS/NURSING STANDARD TITLE: PREVENTIVE MEDICINE NURSING NOTE DATE OF NOTE: DEC 15, 2023@15:13 ENTRY DATE: DEC 15, 2023@15:13:20 AUTHOR: HOOD MIKE EXP COSIGNER: URGENCY: STATUS: COMPLETED COVID VACCINE - WILL SCHEDULE WHEN READY /radhames/ HOOD MIKE LPN LPN Signed: 12/15/2023 15:14 HOOD MIKE
--- OUTSIDE RECORDS SUMMARY | 2024-05-24 13:15 | XMS_ITS | Encounter Summary ---
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 Name Role Phone MARGARITA FLOREZ Primary [...] Policy Bejarano ALVA [place] MEDICARE [facility] Dec 13, 2013 [id number] [phone] DAGMAR,ZIA ERT PATIENT [place] SUPPLEMEN [facility] November 06, 2007 [id number] DAGMAR,ZIA ERT PAT[place] SUPPLEMEN [facility] MEDEX 2 November 06, 2007 [id number] DAGMAR,ZIA ERT [place] SUPP[place] [facility]EX 2 November 06, 2007 [id number] DAGMAR,ZIA ERT PATIENT BCBS OF [facility] MEDICARE SUPPLEMEN [facility] Dec 13, 2013 [id number] DAGMAR,ZIA ERT PATIENT [facility] [place] MED[place] [facility] AN/MX Dec 13, 2008 [id number] DAGMAR,ZIA ERT PATIENT MEDICARE (WNR) MEDICARE (M) PART B May 15, 2012 PART B [id number] DAGMAR,ZIA ERT PATIENT MEDICARE (WNR) MEDICARE (M) PART A May 15, 2002 PART A [id number] DAGMAR,ZIA ERT PATIENT MEDICARE (WNR) MEDICARE (M) PART B May 15, 2002 PART B [id number] DAGMAR,ZIA ERT PATIENT MEDICARE (WNR) MEDICARE (M) PART A May 15, 2002 PART A [id number] DAGMAR,ZIA ERT PATIENT MEDICARE (WNR) MEDICARE (M) PART A May 15, 2002 PART A [id number] [phone] DAGMAR,ZIA ERT PATIENT MEDICARE (WNR) MEDICARE (M) PART B May 15, 2002 PART B [id number] [phone] DAGMAR,ZIA ERT PATIENT MEDICARE (WNR) MEDICARE (M) PART B May 15, 2002 PART B [id number] [phone] DAGMAR,ZIA ERT PATIENT MEDICARE (WNR) MEDICARE (M) PART A May 15, 2002 PART A [id number] DAGMAR,ZIA ERT PATIENT Selected Encounter This section includes the information on record at [place] for the Encounter. Date/Time Encounter Type Encounter Description Reason Pro vider Source November 04, 2023 03:14 PM Outpatient Encounter ADMIN PAT ACTIVTIES (MASNONCT) [...] 2023 02:30 PM AMBULATORY - MEDICINE [facility] Dec 30, 2023 03:00 PM AMBULATORY - MEDICINE [place] [facility] Mar 02, 2024 03:00 PM AMBULATORY - MEDICINE [facility] Apr 27, 2024 10:00 AM AMBULATORY - [place]ICINE [place] [facility] Lab Results: +/- 30 [...] Range Comment Nov 25, 2023 09:49 AM [facility] PSA Specimen Type: SERUM No comment entered. Ordering Provider: MARGARITA DIAMOND Report Released Date/Time: Sep 15, 2023 01:00 PM Reporting Lab: [facility] [address] [address] Performing Lab: [facility] [place] [address] [address] PSA 1.00 ng/mL 0.00-4.00 Nov 25, 2023 09:49 AM [place] VITAMIN D (25-OH) Specimen Type: SERUM No comment entered. Ordering Provider: MARGARITA DIAMOND Report Released Date/Time: Sep 15, 2023 12:57 PM Reporting Lab[facility] [address] [facility] [address] Performing Lab: [facility] [place] [address] [address] VITAMIN D (25-OH) 28 ng/mL 20-50 Nov 25, 2023 09:49 AM [place] FERRITIN Specimen Type: SERUM No comment entered. Ordering Provider: MARGARITA DIAMOND Report Released Date/Time: Sep 15, 2023 12:57 PM Reporting Lab: [address] [address] Performing Lab: [address] FERRITIN 38 ng/mL 20-300 Nov 25, 2023 09:49 AM [facility] HEMOGLOBIN A1C PANEL Specimen Type: BLOOD Comment: [...] Sep 15, 2023 12:57 PM Reporting Lab: [address] [address] Performing Lab: [address] [address] HEMOGLOBIN A1C 6.7 H 4.0-5.6 Nov 25, 2023 09:49 AM [place] LIVER FUNCTION Specimen Type: SERUM No comment entered. Ordering Provider: MARGARITA DIAMOND Report Released Date/Time: Sep 15, 2023 12:57 PM Reporting Lab: [address] [address] Performing Lab: [address] [address] PROTEIN,TOTAL 6.8 g/dL 6.0-8.3 ALBUMIN 3.6 g/dL 3.5-5.0 ALKALINE PHOSPHATASE 38 U/L L 40-150 AST 21 U/L 5-34 ALT 21 U/L BILIRUBIN, TOTAL 0.4 mg/dL 0.2-1.2 Nov 25, 2023 09:49 AM [place] MAGNESIUM Specimen Type: SERUM No comment entered. Ordering Provider: MARGARITA DIAMOND Report Released Date/Time: Sep 15, 2023 12:57 PM Reporting Lab: [place] [address] [facility] [address] Performing Lab: [facility] [address] [facility] [address] MAGNESIUM 1.6 mg/dL 1.6-2.6 Nov 25, 2023 09:49 AM [place] IRON & TIBC PANEL Specimen Type: SERUM No comment entered. Ordering Provider: MARGARITA DIAMOND Report Released Date/Time: Sep 15, 2023 12:57 PM Reporting Lab: [facility] [address] [facility] [address] Performing Lab: [address] [address] TIBC 430 ug/dL 204-475 IRON 78 ug/dL 40-160 Transferrin Saturation 18.1 L 20.0-50.0 Nov 25, 2023 09:49 AM [place] MICROALBUMIN CREATININE RATIO PANEL Spe cimen Type: URINE No comment entered. Ordering Provider: MARGARITA DIAMOND Report Released Date/Time: Sep 15, 2023 12:57 PM Reporting Lab: [address] [address] Performing Lab: [address] [address] MICROALBUMIN/C REATININE RATIO canc mg/g 0-29.9 MICROALBUMIN,Q UANTITATIVE < 0.5 mg/dL RR UNAVAIL CREATININE URINE 57.10 mg/dL Nov 25, 2023 09:49 AM [place] VITAMIN B12 Specimen Type: SERUM No comment entered. Ordering Provider: MARGARITA DIAMOND Report Released Date/Time: Sep 15, 2023 12:57 PM Reporting Lab: [address] [address] Performing Lab: [address] [address] VITAMIN B12 884 pg/mL 200-900 Nov 25, 2023 09:49 AM [place] CBC AND DIFF (AUTO) Specimen Type: BLOOD No comment entered. Ordering Provider: MARGARITA DIAMOND Report Released Date/Time: Sep 15, 2023 12:57 PM Reporting Lab: [facility] [address] [facility] [address] Performing Lab: [facility] [address] [facility] [address] WBC 7.72 10*3/uL 4.50-11.00 RBC 4.35 10*6/uL 4.23-5.66 HGB 12.7 g/dL L 12.8-17 HCT 39.1 L 39.2-50.4 MCV 89.9 fL 82-99 MCHC 32.5 g/dL 30.8-35.1 PLT 187 10*3/uL 140-360 RDW-CV 14.2 12.0-16.0 [place], Abs 0.63 10*3/uL 0.30-1.10 MCH 29.2 pg 26.2-32.6 Neut % 62.7 43.7-75.8 LYMPH % 24.5 14.0-42.3 [place] % 8.2 5.1-13.7 Eos % 3.5 0.4-6.8 Baso % 0.6 0.1-2.0 Neut, Abs 4.84 10*3/uL 2.20-7.60 Lymph, Abs 1.89 10*3/uL 1.00-3.20 Eos, Abs 0.27 10*3/uL 0.03-0.44 Baso, Abs 0.05 10*3/uL 0.01-0.13 Immature Gran % 0.5 0.0-0.7 Immature Gran, Abs 0.04 10*3/uL 0.00-0.06 Nov 25, 2023 09:49 AM [place] LIPID PANEL, NON FASTING Specimen Type: SERUM No comment entered. Ordering Provider: MARGARITA DIAMOND Report Released Date/Time: Sep 15, 2023 12:57 PM Reporting Lab: [facility] [address] [facility] [address] Performing Lab: [address] [address] CHOLESTEROL 120 mg/dL TRIGLYCERIDE 191 mg/dL H 0-150 LDL calculated 46 mg/dL 0-129 CHOL/HDL 3.3 HDL CHOLESTEROL 36 mg/dL L 40-60 Nov 25, 2023 09:49 AM [place] BASIC METABOLIC PANEL (non-fasting) Spe cimen Type: SERUM No comment entered. Ordering Provider: MARGARITA DIAMOND Report Released Date/Time: Sep 15, 2023 12:57 PM Reporting Lab: [facility] [address] [facility] [address] Performing Lab: [facility] [address] [facility] [address] UREA NITROGEN 29 mg/dL H 7-25 GLUCOSE [...] 15, 2022 01:00 PM VA-TOBACCO NEVER USED [facility] Encounter Notes: All associated encounter notes This section contains the clinical notes associated to the Encounter. Date/Time Encounter Note(s) Provider Source November 06, 2023 02:59 PM ADDENDUM: LOCAL TITLE: Addendum STANDARD TITLE: ADDENDUM DATE OF NOTE: NOVEMBER 06, 2023@14:59:15 ENTRY DATE: NOVEMBER 06, 2023@14:59:16 AUTHOR: Melisa FLOREZ COSIGNER: URGENCY: STATUS: COMPLETED Please call in non-VA pharmacy gabapentin 300 mg at bedtime, #15 tablets no refills [facility], Please call daughter Mindi dalton submitted @ [phone]. Thank you /radhames/ MARGARITA FLOREZ MD PHYSICIAN Signed: 11/06/2023 15:00 Receipt Acknowledged By: 11/10/2023 08:36 /radhames/ LENNOX PEARCE RN REGISTERED NURSE 11/06/2023 15:25 /es/ HOOD MIKE LPN LPN === --- Original Document --- 11/04/23 CCC: SCHEDULING ADMINISTRATION: Patient Demographics Patient Name: ORLY LEAVITT Patient Primary Phone: [phone] Patient Primary Address: [address] [place] [address] Patient : 1935 Patient Age: 88 Call Back Number: [phone] Caller/Recipient Relation to Patient: Other If Other Describe Relation to Patient: Daughter Caller Name: Mindi Administrative Administrative Note Reason: Medication Renewal [place] Medications Refill/Renewal Request: Veterans Daughter Mindi is calling, the Pharm [facility] is putting in a refill request on the veterans GABAPENTIN 300MG CAP, however he only has 3 doses left and will need some before the script arrives. Mindi would like a SHORT SCRIPT sent to [facility] in [facility], provided by Mindi. Please call Mindi once submitted @ [phone] /es/ LITZY WILDER [facility] [place] [facility] Signed: 11/04/2023 15:15 Receipt Acknowledged By: 11/06/2023 14:07 /radhames/ LENNOX PEARCE RN REGISTERED NURSE 11/06/2023 14:58 /radhames/ MARGARITA FLOREZ MD PHYSICIAN 11/06/2023 ADDENDUM STATUS: COMPLETED MEDICATION CALLED IN TO [facility] [phone] CALL PLACED TO MINDI, AND SHE IS AWARE MEDICATION WAS CALLED IN. /radhames/ HOOD MIKE LPN LPN Signed: 11/06/2023 15:26 Melisa FLOREZ [place] [facility] [place] [facility] November 04, 2023 03:14 PM ADMINISTRATIVE NOTE: LOCAL TITLE: CCC: SCHEDULING ADMINISTRATION STANDARD TITLE: ADMINISTRATIVE NOTE DATE OF NOTE: NOVEMBER 04, 2023@15:14:53 ENTRY DATE: NOVEMBER 04, 2023@15:14:53 AUTHOR: LITZY LOWE COSIGNER: URGENCY: STATUS: COMPLETED CCC: SCHEDULING ADMINISTRATION Has ADDENDA Patient Demographics Patient Name: ORLY LEAVITT Patient Primary Phone: [phone] Patient Primary Address: [address] [place] [address] Patient : 1935 Patient Age: 88 Call Back Number: [phone] Caller/Recipient Relation to Patient: Other If Other Describe Relation to Patient: Daughter Caller Name: Mindi Administrative Administrative Note Reason: Medication Renewal [place] Medic[place] Refill/Renewal Request: Veterans Daughter Mindi is calling, the Pharm [facility] is putting in a refill request on the veterans GABAPENTIN 300MG CAP, however he only has 3 doses left and will need some before the script arrives. Mindi would like a SHORT SCRIPT sent to [facility] in [facility], provided by Mindi. Please call Mindi once submitted @ [phone] /es/ LITZY WILDER [facility] Signed: 11/04/2023 15:15 Receipt Acknowledged By: 11/06/2023 14:07 /es/ LENNOX PEARCE RN REGISTERED NURSE 11/06/2023 14:58 /es/ MARGARITA FLOREZ MD PHYSICIAN 11/06/2023 ADDENDUM STATUS: COMPLETED Please call in non-VA pharmacy gabapentin 300 mg at bedtime, #15 tablets no refills [facility], Please call evon Singletary once submitted @ [phone]. Thank you /radhames/ MARGARITA FLOREZ MD PHYSICIAN Signed: 11/06/2023 15:00 Receipt Acknowledged By: * AWAITING SIGNATURE * LENNOX PEARCE 11/06/2023 15:25 /es/ HOOD MIKE LPN LPN 11/06/2023 ADDENDUM STATUS: COMPLETED MEDICATION CALLED IN TO [facility] [phone] CALL PLACED TO MINDI, AND SHE IS AWARE MEDICATION WAS CALLED IN. /radhames/ HOOD MIKE LPN LPN Signed: 11/06/2023 15:26 LIT[facility]Y LOWE [facility]
--- OUTSIDE RECORDS SUMMARY | 2024-05-24 13:15 | XMS_ITS | Encounter Summary ---
Author Name [facility] Organization [facility] Address [address] [place] [id number] Care Team Providers Care Cap Sewer Name Role Phone MARGARITA FLOREZ Primary Care [...] Relationship to Policy Bejarano AL[place] OF [place] MEDICARE [facility] Dec 13, 2013 [id number] DAGMAR,ZIA ERT PATIENT [place] MED[place]ARE SUPPLEMEN [facility] November 06, 2007 [id number] [phone] DAGMAR,ZIA ERT PATIENT [place]BS [place] MEDICARE SUPPLEMEN [facility] 2 November 06, 2007 [id number] [phone] DAGMAR,ZIA ERT PAT[place] SUPPLEMEN [facility] 2 November 06, 2007 [id number] DAGMAR,ZIA ERT PATIENT BCBS OF [facility] MEDICARE SUPPLEMEN [facility] Dec 13, 2013 [id number] [phone] DAGMAR,ZIA ERT PATIENT [place] MED[place] SUPPLEMEN [facility]/ [facility] AN/MX Dec 13, 2008 [id number] [phone] DAGMAR,ZIA ERT PATIENT MEDICARE (WNR) MEDICARE () PART B May 15, 2012 PART B [id number] DAGMAR,ZIA ERT PATIENT MEDICARE (WNR) MEDICARE () PART A May 15, 2002 PART A [id number] DAGMAR,ZIA ERT PATIENT MEDICARE (WNR) MEDICARE () PART B May 15, 2002 PART B [id number] DAGMAR,ZIA ERT PATIENT MEDICARE (WNR) MEDICARE () PART A May 15, 2002 PART A [id number] DAGMAR,ZIA ERT PATIENT MEDICARE (WNR) MEDICARE () PART B May 15, 2002 PART B [id number] DAGMAR,ZIA ERT PATIENT MEDICARE (WNR) MEDICARE () PART A May 15, 2002 PART A [id number] DAGMAR,ZIA ERT PATIENT MEDICARE (WNR) MEDICARE () PART B May 15, 2002 PART B [id number] DAGMAR,ZIA ERT PATIENT MEDICARE (WNR) MEDICARE () PART A May 15, 2002 PART A [id number] [phone] DAGMAR,ZIA ERT PATIENT Selected Encounter This section includes the information on record at ID for the Encounter. Date/Time Encounter Type Encounter Description Reason Provider Source Dec 30, 2023 03:00 PM MTMS BY PHARM ADDL 15 MIN CLINICAL PHARMACY ICD-10-CM E11.8 Type 2 diabetes mellitus with unspecified complications TAMMY GILL Grecia Encounter Template Text not used by ID Assessments - Encounter Diagnoses This section includes the primary and secondary diagnoses documented for the Encounter. Date/Time Primary/Secondary Diagnosis Diagnosis Name Provider Source Dec 31, 2023 11:13 AM PRIMARY Type 2 diabetes mellitus with unspecified complications NIK GILL Plan of Treatment: Future Appointments (+ 6 months) and Future Tests (+/- 45 days) The Plan of Treatment section includes future care activities for the patient from all ID treatmentfacilities. This section includes future appointments and future orders which are active, pending or scheduled. Future Appointments This section includes appointments that were scheduled to occur 6 months from the date of the Encounter, up to a maximum of 20 appointments. The data comes from all ID treatment facilities. Appointment Date/Time Appointment Type Appointme nt Facility Name Mar 02, 2024 03:00 PM AMBULATORY - MEDICINE [facility] Apr 27, 2024 10:00 AM AMBULATORY - MEDICINE [facility] Social History: Smoking Status (Most current) and [...] Jesus fall Apr 28, 2023 03:00 PM ID-TOBACCO NEVER USED [facility] Tobacco Use History This section includes a history of the smoking, or tobacco-related health factors, that were collected on or before the date of the Encounter. The data comes from the ID facility where the Encounter took place. Date/Time Smoking Status/Tobacco Use Comment F acmelissa Apr 09, 2021 10:00 AM ID-TOBACCO NEVER USED [facility] Mar 13, 2020 12:30 PM [facility]-TOBACCO NEVER USED [facility] Feb 02, 2018 02:02 PM VA-TOBACCO NEVER USED [facility] Mar 10, 2017 01:57 PM LIFETIME NON-TOBACCO USER [facility] Feb 11, 2016 02:44 PM LIFETIME NON-TOBACCO USER [facility] May 09, 2009 09:43 AM LIFETIME NON-TOBACCO USER [facility] Encounter Notes: All associated encounter notes This section contains the clinical notes associated to the Encounter. Date/Time Encounter Note(s) Provider Source Dec 30, 2023 03:14 PM PHARMACY OUTPATIEN T NOTE: LOCAL TITLE: PHARMACY CLINIC NOTE STANDARD TITLE: PHARMACY OUTPATIENT NOTE DATE OF NOTE: DEC 30, 2023@15:14 ENTRY DATE: DEC 30, 2023@15:14:52 AUTHOR: TARUN GILL EXP COSIGNER: URGENCY: STATUS: COMPLETED Patient Name: ORLY LEAVITT was seen via F for follow-up for diabetes management treatment. : May Age: 88 Sex: MALE Race: WHITE Subjective: Pt presents to a f/up w/ his daughter. They had a recent visit w/ brake holder and pt's labs came back much improved including his eGFR and SrCr. Pt is doing well. Dtr cooks dinner for him every day and is very close to the . Per prev: Pt presents to the visit w/ his dtr Mindi (tel# [phone]). Pt states he is doing well. He [...] Pt has had 6 stents placed. Pt's transit planning director Dr. Flannery in [place]. Dr. Ríos is the regulator pin inserter on the outside. Pt lives w/ his Per consult from PCP pt is interested in obtaining sensor from the ID. Target Goals: A1C: 7%; FB-130 mg/dL; 2HRS PP <180mg/dL. Allergies: COLCHICINE/PROBENECID PERTINENT INFORMATION: Active problems - Computerized Problem List is the source for the followin. Neuropathy due to type 2 diabetes mellitus 2. Diabetic nephropathy 3. Hypomagnesemia 4. Diarrhea 5. Gutierrez's esophagus 6. Insomnia (SCT 940114950) 7. Bone density below reference range 8. Diabetes Mellitus Type 2 (SCT 18487235) 9. Obstructive Sleep Apnea of Adult (SCT 1591792242828) 10. Prostate Cancer (SCT 820242931) 11. Chronic kidney disease stage 3 12. Low Back Pain * 13. Vitamin B12 deficiency 14. 2009: Colonoscopy: Polypectomy 15. 11-08-09: PFT: Normal 16. Abdominal aortic aneurysm (SNOMED CT 862072100) 17. Benign essential hypertension (SNOMED CT 6879469) 18. Venous insufficiency of leg (SNOMED CT 272454230) 19. Other dyspnea and respiratory abnormality 20. Coronary arteriosclerosis (SNOMED CT 33560495) 21. CAD: 2005:PTCA 5 TaxusStents: LADx2 RCAx2 Prox RCA x1 22. H/O: gout 23. Hyperglycemia due to type 2 diabetes mellitus (SNOMED CT 265634133073939) 24. Gastroesophageal reflux disease 25. Hyperlipidemia (SNOMED CT 14181620) 26. 1957: 2 rt inguinal hernia repair/[place] 27. 1969: Lipoma Removal 28. Tonsillectomy and Adenoidectomy (under age 12) 29. FAM HX-ISCHEM HEART DIS Diabetes Medication Regimen: -- semaglutide 1 mg weekly (Wednesdays) -- metformin 500 mg bid - decreased d/t CKD; eGFR 31ml/min on 08/08 eGFR 45 ml/min on 11/2023 --Insulin Aspart mixed (VIAL) 70/30 6:30-7AM = 28 units 6 PM = 20 units TDD: 48 units Previous DM Medications: - metformin - pt is not sure why he stopped ? eGFR 40 ml/min - restarted on 03/2023 -- Trulicity 1.5 mg weekly (Wednesdays) - switched over to semagluitde at ID - glipizide - stopped 04/2023 Adherence: Oral meds: denies missed doses Insulin: denies missed doses Labs: Labs: HEMOGLOBIN A1C TREND Collection DT Spec HGBA1c 11/25/2023 09:49 BLOOD 6.7 H 09/16/2023 13:56 BLOOD 6.8 H 04/20/2023 09:44 BLOOD 7.3 H 10/16/2022 09:25 BLOOD 8.3 H 04/08/2022 09:33 BLOOD 9.0 H CBC TREND Collection DT Spec WBC RBC HGB HCT MCV MCH PLT 11/25/2023 09:49 BLOOD 7.72 4.35 12.7 L 39.1 L 89.9 29.2 187 09/16/2023 13:56 BLOOD 7.86 4.28 12.8 39.0 L 91.1 29.9 189 04/20/2023 09:44 BLOOD 7.09 4.13 L 12.6 L 38.6 L 93.5 30.5 117 L 10/16/2022 09:25 BLOOD 7.20 4.18 L 12.8 39.2 93.8 30.6 116 L 04/08/2022 09:33 BLOOD 8.05 4.30 12.9 39.5 91.9 30.0 141 CHEM 7 TREND LAB CUMULATIVE SELECTED Collection DT Spec GLUCOSE BUN CREATIN Sodium K+/Pot CL CO2 11/25/2023 09:49 SERUM 101 H 29 H 1.50 H 136 4.2 103 26 09/16/2023 13:56 SERUM 234 H 25 1.80 H 140 5.0 106 23 05/27/2023 13:06 SERUM 179 H 32 H 1.67 H 136 4.7 100 25 05/08/2023 13:29 SERUM 174 H 29 H 1.80 H 141 4.6 106 26 04/20/2023 09:44 SERUM 175 H 29 H 1.87 H 139 4.3 106 24 Collection DT Spec eGFR 05/16/2009 08:55 SERUM >60 LAB CUMULATIVE SELECTED 2 No selection items chosen for this component. CHEM 7 Results Collection DT Spec Sodium K+/Pot CL CO2 GLUCOSE BUN eGFR 11/25/2023 09:49 SERUM 136 4.2 103 26 101 H 29 H 09/16/2023 13:56 SERUM 140 5.0 106 23 234 H 25 05/27/2023 13:06 SERUM 136 4.7 100 25 179 H 32 H 05/08/2023 13:29 SERUM 141 4.6 106 26 174 H 29 H 04/20/2023 09:44 SERUM 139 4.3 106 24 [...] Spec CHOL HDL CHO/HDL LDL-d LDL-c TRIG 11/25/2023 09:49 SERUM 120 36 L 3.3 46 191 H 04/20/2023 09:44 SERUM 128 42 3.0 44 208 H 10/16/2022 09:25 SERUM 130 39 L 3.3 48 214 H 04/08/2022 09:33 SERUM 133 37 L 3.6 47 246 H 10/08/2021 09:31 SERUM 126 39 L 3.2 44 217 H THYROID PANEL Collection DT Specimen Test Name Result Units Ref Range 04/20/2023 09:44 SERUM TSH 1.38 uIU/mL 0.35 - 5.00 VITAMIN D 25-OH Collection DT Specimen Test Name Result Units Ref Range 11/25/2023 09:49 SERUM VITAMIN D (25-OH) 28 ng/mL 20 - 50 SrCr (last 6 weeks): CREATININE-EGFR 11/25/23 09:49 1.50 H CRCL IBW: CrCl(est): 40.5 mL/min (Creat:1.50 11/25/23) CRCL ACT: 49.95 mL/min CRCL ADJ: 40.5 mL/min (11/25/23) lft's: wnl 04/2023 Vitals: Weight (BMI): 219.8 lb [99.70 kg] (12/15/2023 15:11) Height: 70 in [177.8 cm] (10/15/2021 14:15) BMI: 31.6 Active and Recently Outpatient Medications (including Supplies): Active Outpatient Medications Status Active Outpatient Medications (including Supplies): ACCU-CHEK GUIDE (GLUCOSE) TEST STRIP USE 1 STRIP TO TEST ACTIVE BLOOD SUGARS TWICE DAILY ALLOPURINOL 100MG TAB TAKE ONE TABLET BY MOUTH TWICE DAILY ACTIVE (S) FOR GOUT AMLODIPINE BESYLATE 5MG TAB TAKE ONE TABLET BY MOUTH ONCE ACTIVE DAILY FOR BLOOD PRESSURE/HEART, DO NOT TAKE WITH GRAPEFRUIT JUICE CLOPIDOGREL BISULFATE 75MG TAB TAKE ONE TABLET BY MOUTH ACTIVE ONCE DAILY TO PREVENT BLOOD CLOTS FENOFIBRATE 145MG TAB TAKE ONE TABLET BY MOUTH AT BEDTIME ACTIVE TO LOWER CHOLESTEROL FUROSEMIDE 20MG TAB TAKE ONE TABLET BY MOUTH ONCE DAILY TO ACTIVE REMOVE FLUID/CONTROL BLOOD PRESSURE GABAPENTIN 300MG CAP TAKE ONE CAPSULE BY MOUTH AT BEDTIME ACTIVE GLUCOSE SENSOR DEXCOM G7 USE 1 SENSOR DIRECTED EVERY 10 ACTIVE DAYS INSULIN SYRINGE 0.5ML 30G 12MM USE 1 SYRINGE ACTIVE SUBCUTANEOUSLY TWICE DAILY FOR INSULIN INJECTIONS INSULIN,ASPART,HUMAN 70/30 NOVOLOG INJ INJECT 24 UNITS ACTIVE SUBCUTANEOUSLY EVERY MORNING AND INJECT 20 UNITS EVERY EVENING LANCET,SOFTCLIX USE 1 LANCET TOPICALLY ONCE DAILY TO TEST ACTIVE BLOOD SUGAR MAGNESIUM OXIDE 420MG TAB TAKE ONE TABLET BY MOUTH TWICE ACTIVE DAILY FOR MAGNESIUM SUPPLEMENTATION METFORMIN HCL 500MG 24HR SA TAB TAKE TWO TABLETS BY MOUTH ACTIVE ONCE DAILY METOPROLOL SUCCINATE 100MG SA TAB TAKE ONE TABLET BY MOUTH ACTIVE ONCE DAILY FOR BLOOD PRESSURE/HEART NIACIN (SLO-NIACIN) 750MG TAB,SA TAKE ONE TABLET BY MOUTH HOLD TWICE DAILY OMEPRAZOLE 20MG EC CAP TAKE ONE CAPSULE BY MOUTH TWICE ACTIVE DAILY SEMAGLUTIDE 1MG/0.75ML INJ PEN 3ML INJECT 1MG ACTIVE SUBCUTANEOUSLY ONCE A WEEK FOR TYPE 2 DIABETES MELLITUS SIMVASTATIN 80MG TAB TAKE ONE-HALF TABLET BY MOUTH ONCE ACTIVE (S) DAILY FOR CHOLESTEROL SKIN BARRIER WIPE TORBOT SKIN TAC USE 1 WIPE TOPICALLY ACTIVE (S) EVERY 10 DAYS Non-VA ASPIRIN 81MG EC TAB 81MG BY MOUTH DAILY ACTIVE Non-VA CHOLECALCIF 25MCG (D3-1,000UNIT) TAB 25MCG BY MOUTH ACTIVE ONCE DAILY Non-VA CYANOCOBALAMIN 250MCG TAB 250MCG BY MOUTH ONCE ACTIVE DAILY Non-VA FERROUS GLUCONATE 324MG TAB 324MG BY MOUTH EVERY 48 ACTIVE HOURS Non-VA FISH OIL 1000MG (500MG DHA/EPA) CAP 1000MG BY MOUTH ACTIVE DAILY Non-VA INSULIN,ASPART,HUMAN 70/30 NOVOLOG INJ 16 UNITS ACTIVE SUBCUTANEOUSLY MEDICATION RECONCILIATION:done BLOOD GLUCOSE MONITORING Pt monitors BG once [...] LOW 86 % DAYS W/ CGM DATA Date: 12/31/23 14 day av mg/dl 6% VERY HIGH 35% HIGH 59% IN RANGE 0% LOW 0% VERY LOW 93% DAYS W/ CGM DATA NUTRITION: Diet Patterns: [...] BG under control - Lose weight ASSESSMENT/PLAN: ASSESSMENT/PLAN: Per prev: Reviewed the most recent [...] is requesting to obtain it from the ID. Per above note, pt does not wish to transition to basal/bolus regimen due to too high complexity and too many injections. Informed the pt that ID currently only has vials of novolog mix 70/30 - as the pens are on commercial counsel's backorder. Reviewed w/ pt and dtr how to use vial and syringe. Pt's dtr works in medical field is very well familiar how to perform injections using vials and syringes. Pt and dtr were able to demonstrate back to the leader writer how to use it. 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 [...] Will assess futher. Reviewed the upload w/ [place] and dtr. f/up end of June. adn dtr received written instructions. Date: 09/16/23 [...] breakfast/lunch. Pt to repeat blood work today. Date: 12/30/23 Reviewed the time in target of 59% on tammy dexcom upload. It is slightly lower than previous. Reviewed the post prandial BG excursions occuring typically after breakfast. REviewed the nutriiton at breakfast. Recommend slight increase in morning dose of insulin. Dtr does not wish to convert pt to basal/bolus regimen due to complexity and increase in injections. Pt is doing well on current dose of semaglutide hold off on changing the dose. f/up in 2 months. DIABETES A1c is above goal of <7% - Medication management Diabetes Objective: Diabetes Medication Regimen: -- C/T semaglutide 1 mg weekly (Wednesdays) -- c/t metformin 500 mg bid - decreased d/t CKD; eGFR 31ml/min on 08/08 eGFR 45 ml/min on 11/2023 --INCREASE Insulin Aspart mixed (VIAL) 70/30 6:30-7AM = 30 units 6 PM = 20 units TDD: 50 units - [facility]ed [facility] - [...] of Preventive Care: Most recent [facility] instructional technology teacher[facility]; seen by Dr. Reyes 2 weeks ago; Most recent visit [facility]; last visit in 2021: 1. Diabetes mellitus without retinopathy or macular edema. Clinic's Next Scheduled Follow-up:03/02/24 No barriers; Patient understands and agrees to current treatment plan. If he has any questions, concerns, or changes in current health status he will call or come [facility] to the [facility].and agrees to current treatment plan. If he has any questions, concerns, or changes in current health status he will call or come [facility] to the [facility]. FUTURE APPOINTMENTS: 03/02/2024 15:00 CWM/SO/PODIATRY/RICKY 07/12/2024 15:30 CWM/SO/PACT 5 11/01/2024 15:30 NHM/OPTOMETRY/[facility] DM type is :T2D Length of Visit: 30 minutes PBM PharmD Pharmacotherapy Rem V12: PHARMACIST INTERVENTIONS: TYPE 2 DIABETES MELLITUS Medication Intervention(s) Adjust dose or frequency of current medication due to other reason Plan: increase dose of insulin am dose Medication monitoring, no dosage change required, continue to monitor and assess /radhames/ TARUN GILL CLINICAL BEHAVIORAL INSTRUCTOR Signed: 12/31/2023 11:33 Receipt Acknowledged By: 01/01/2024 12:30 /radhames/ MARGARITA FLOREZ MD PHYSICIAN TARUN GILL [facility]
--- OUTSIDE RECORDS SUMMARY | 2024-05-24 13:15 | XMS_ITS | Encounter Summary ---
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 Name Role Phone MARGARITA FLOREZ Primary Care [...] Relationship to Policy Bejarano ALVA [facility] Dec 13, 2013 [id number] DAGMAR,ZIA ERT PATIENT [place] MED[place]ARE SUPPLEMEN [facility] November 06, 2007 [id number] DAGMAR,ZIA ERT PATIENT [place] MED[place] SUPPLEMEN [facility] 2 November 06, 2007 [id number] DAGMAR,ZIA ERT [place] SUPP[place] [facility] 2 November 06, 2007 [id number] [phone] DAGMAR,ZIA ERT PATIENT BCBS OF [facility] MEDICARE SUPPLEMEN [facility] Dec 13, 2013 [id number] DAGMAR,ZIA ERT PATIENT [place] SUPPLEMEN [facility] MMHG/ WHITM AN/MX Dec 13, 2008 [id number] [phone] DAGMAR,ZIA ERT PATIENT MEDICARE (WNR) MEDICARE () PART B May 15, 2012 PART B [id number] DAGMAR,ZIA ERT PATIENT MEDICARE (WNR) MEDICARE () PART A May 15, 2002 PART A [id number] DAGMAR,ZIA ERT PATIENT MEDICARE (WNR) MEDICARE () PART A May 15, 2002 PART A [id number] DAGMAR,ZIA ERT PATIENT MEDICARE (WNR) MEDICARE () PART B May 15, 2002 PART B [id number] DAGMAR,ZIA ERT PATIENT MEDICARE (WNR) MEDICARE () PART A May 15, 2002 PART A [id number] DAGMAR,ZIA ERT PATIENT MEDICARE (WNR) MEDICARE () PART B May 15, 2002 PART B [id number] DAGMAR,ZIA ERT PATIENT MEDICARE (WNR) MEDICARE () PART A May 15, 2002 PART A [id number] [phone] DAGMAR,ZIA ERT PATIENT MEDICARE (WNR) MEDICARE () PART B May 15, 2002 PART B [id number] DAGMAR,ZIA ERT PATIENT Selected Encounter This section includes the information on record at [place] for the Encounter. Date/Time Encounter Type Encounter Description Reason Provider Source Dec 15, 2023 02:30 PM OFFICE O/P EST MOD 30 MIN PRIMARY CARE/MEDICINE ICD-10-CM E11.9 Type 2 diabetes mellitus without complications MARGARITA ACOSTA IHGrecia Encounter Template Text not used by [facility] Assessments - Encounter Diagnoses This section includes the primary and secondary diagnoses documented for the Encounter. 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 [facility]MAGDALENEDIN[facility] Jan 25, 2024 08:49 AM SECONDARY 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 [facility] Jan 25, 2024 08:49 AM SECONDARY Chronic kidney disease, stage 3 unspecified SWATIAZDIN-BOSKO CHELLY,[facility] Jan 25, 2024 08:49 AM SECONDARY Deficiency of other specified B group vitamins [facility] Jan 25, 2024 08:49 AM SECONDARY Diarrhea, unspecified NADAZDIN-BOSKO CHELLY,[facility] Jan 25, 2024 08:49 AM SECONDARY Essential (primary) hypertension SWATIAZDIN-BOSKO CHELLY,[facility] Jan 25, 2024 08:49 AM SECONDARY Gastro-esophageal reflux disease without esophagitis [facility] Jan 25, 2024 08:49 AM SECONDARY Hypomagnesemia NADAZDIN-BOSKO [facility] Jan 25, 2024 08:49 AM SECONDARY Insomnia, unspecified NADAZDIN-BOSKO [facility] Jan 25, 2024 08:49 AM SECONDARY Malignant neoplasm of prostate NADAZDIN-BOSKO [facility] Jan 25, 2024 08:49 AM SECONDARY Mixed hyperlipidemia NADAZDIN-BOSKO [facility] Jan 25, 2024 08:49 AM SECONDARY Obstructive sleep apnea (adult) (pediatric) NADAZDIN-BOSKO [facility] Jan 25, 2024 08:49 AM SECONDARY Personal history of diseases of the ms sys and conn tiss NADAZDIN-BOSKO CHELLY,OGNJENKA M [facility] Jan 25, 2024 08:49 AM SECONDARY Type 2 diabetes mellitus with diabetic neuropathy, unsp MARGARITA DIAMOND [facility] Jan 25, 2024 08:49 AM SECONDARY Venous insufficiency (chronic) (peripheral) MARGARITA DIAMOND [facility] Plan of Treatment: Future Appointments (+ 6 months) and Future Tests (+/- 45 days) The Plan of Treatment section includes future care activities for the patient [facility] [place] [facility] This section includes future appointments and [...] 30, 2023 03:00 PM AMBULATORY - MEDICINE [facility] Mar 02, 2024 03:00 PM AMBULATORY - MEDICINE [facility] Apr 27, 2024 10:00 AM AMBULATORY - MEDICINE [facility] Lab Results: +/- 30 days [...] Range Comment Nov 25, 2023 09:49 AM [facility] PSA Specimen Type: SERUM No comment entered. Ordering Provider: MARGARITA DIAMOND Report Released Date/Time: Sep 15, 2023 01:00 PM Reporting Lab: [facility] [address] [address] Performing Lab: [facility] [address] [address] PSA 1.00 ng/mL 0.00-4.00 Nov 25, 2023 09:49 AM [facility] VITAMIN D (25-[place]) Specimen Type: SERUM No comment entered. Ordering Provider: MARGARITA DIAMOND Report Released Date/Time: Sep 15, 2023 12:57 PM Reporting Lab: [facility] [address] [address] Performing Lab: [facility] [address] VITAMIN D (25-[place]) 28 ng/mL 20-50 Nov 25, 2023 09:49 AM [facility] FERRITIN Specimen Type: SERUM No comment entered. Ordering Provider: MARGARITA DIAMOND Report Released Date/Time: Sep 15, 2023 12:57 PM Reporting Lab: [facility] [address] [address] Performing Lab: [facility] [address] FERRITIN 38 ng/mL 20-300 Nov 25, 2023 09:49 AM [facility] HEMOGLOBIN A1C PANEL Specimen Type: BLOOD Comment: [...] Sep 15, 2023 12:57 PM Reporting Lab: [facility] [address] [address] Performing Lab: [facility] [address] HEMOGLOBIN A1C 6.7 H 4.0-5.6 Nov 25, 2023 09:49 AM [facility] LIPID PANEL, NON FASTING Specimen Type: SERUM No comment entered. Ordering Provider: MARGARITA DIAMOND Report Released Date/Time: Sep 15, 2023 12:57 PM Reporting Lab: [facility] [address] [address] Performing Lab: [facility] [address] CHOLESTEROL 120 mg/dL TRIGLYCERIDE 191 mg/dL H 0-150 LDL calculated 46 mg/dL 0-129 CHOL/HDL 3.3 HDL CHOLESTEROL 36 mg/dL L 40-60 Nov 25, 2023 09:49 AM [facility] LIVER FUNCTION Specimen Type: SERUM No comment entered. Ordering Provider: MARGARITA DIAMOND Report Released Date/Time: Sep 15, 2023 12:57 PM Reporting Lab: [address] [address] Performing Lab: [address] [address] PROTEIN,TOTAL 6.8 g/dL 6.0-8.3 ALBUMIN 3.6 g/dL 3.5-5.0 ALKALINE PHOSPHATASE 38 U/L L 40-150 AST 21 U/L 5-34 ALT 21 U/L BILIRUBIN, TOTAL 0.4 mg/dL 0.2-1.2 Nov 25, 2023 09:49 AM [facility] MAGNESIUM Specimen Type: SERUM No comment entered. Ordering Provider: MARGARITA DIAMOND Report Released Date/Time: Sep 15, 2023 12:57 PM Reporting Lab: [address] [address] Performing Lab: [address] [address] MAGNESIUM 1.6 mg/dL 1.6-2.6 Nov 25, 2023 09:49 AM [facility] IRON & TIBC PANEL Specimen Type: SERUM No comment entered. Ordering Provider: MARGARITA DIAMOND Report Released Date/Time: Sep 15, 2023 12:57 PM Reporting Lab: [address] [address] Performing Lab: [address] [address] TIBC 430 ug/dL 204-475 IRON 78 ug/dL 40-160 Transferrin Saturation 18.1 L 20.0-50.0 Nov 25, 2023 09:49 AM [facility] VITAMIN B12 Specimen Type: SERUM No comment entered. Ordering Provider: MARGARITA DIAMOND Report Released Date/Time: Sep 15, 2023 12:57 PM Reporting Lab: [address] [address] Performing Lab: [address] [address] VITAMIN B12 884 pg/mL 200-900 Nov 25, 2023 09:49 AM [facility] MICROALBUMIN CREATININE RATIO PANEL Spe cimen Type: URINE No comment entered. Ordering Provider: MARGARITA DIAMOND Report Released Date/Time: Sep 15, 2023 12:57 PM Reporting Lab: [address] [address] Performing Lab: [address] [address] MICROALBUMIN/C REATININE RATIO canc mg/g 0-29.9 MICROALBUMIN,Q UANTITATIVE < 0.5 mg/dL RR UNAVAIL CREATININE URINE 57.10 mg/dL Nov 25, 2023 09:49 AM [facility] CBC AND DIFF (AUTO) Specimen Type: BLOOD No comment entered. Ordering Provider: MARGARITA DIAMOND Report Released Date/Time: Sep 15, 2023 12:57 PM Reporting Lab: [address] [address] Performing Lab: [address] [address] WBC 7.72 10*3/uL 4.50-11.00 RBC 4.35 10*6/uL 4.23-5.66 HGB 12.7 g/dL L 12.8-17 HCT 39.1 L 39.2-50.4 MCV 89.9 fL 82-99 MCHC 32.5 g/dL 30.8-35.1 PLT 187 10*3/uL 140-360 RDW-CV 14.2 12.0-16.0 [place], Abs 0.63 10*3/uL 0.30-1.10 MCH 29.2 pg 26.2-32.6 Neut % 62.7 43.7-75.8 LYMPH % 24.5 14.0-42.3 [place] % 8.2 5.1-13.7 Eos % 3.5 0.4-6.8 Baso % 0.6 0.1-2.0 Neut, Abs 4.84 10*3/uL 2.20-7.60 Lymph, Abs 1.89 10*3/uL 1.00-3.20 Eos, Abs 0.27 10*3/uL 0.03-0.44 Baso, Abs 0.05 10*3/uL 0.01-0.13 Immature Gran % 0.5 0.0-0.7 Immature Gran, Abs 0.04 10*3/uL 0.00-0.06 Nov 25, 2023 09:49 AM [facility] BASIC METABOLIC PANEL (non-fasting) Spe cimen Type: SERUM No comment entered. Ordering Provider: MARGARITA DIAMOND Report Released Date/Time: Sep 15, 2023 12:57 PM Reporting Lab: [address] [address] Performing Lab: [address] [address] UREA NITROGEN 29 mg/dL H 7-25 GLUCOSE 101 mg/dL H 65-100 SODIUM 136 mmol/L 135-145 POTASSIUM 4.2 mmol/L 3.5-5.0 CHLORIDE 103 mmol/L 100-110 CO2 26 meq/L 20-30 CREATININE, Serum 1.50 mg/dL H 0.50-1.40 eGFR(CKD-EPI 2020) 45 mL/min L >60 Vital Signs: All taken on the encounter date This section contains inpatient and outpatient Vital Signs collected on the date of the Encounter. Date/Time Temperature Pulse Blood Pressure Respiratory Rate SP02 Pain Height Weight Body Mass Index Source Dec 15, 2023 03:11 PM 97.9 86 129/80 96 219.8 32 [place] Social History: Smoking Status (Most current) [...] 28, 2023 03:00 PM VA-TOBACCO NEVER USED [facility] Tobacco Use History This section includes a history of the smoking, or tobacco-related health factors, that were collected on or before the date of the Encounter. The data comes from the [place] facility where the Encounter took place. Date/Time Smoking Status/Tobacco Use Comment F acility Apr 09, 2021 10:00 AM VA-TOBACCO NEVER USED [facility] Mar 13, 2020 12:30 PM VA-TOBACCO NEVER USED [facility] Feb 02, 2018 02:02 PM VA-TOBACCO NEVER USED [facility] Mar 10, 2017 01:57 PM LIFETIME NON-TOBACCO USER [facility] Feb 11, 2016 02:44 PM LIFETIME NON-TOBACCO USER [facility] May 09, 2009 09:43 AM LIFETIME NON-TOBACCO USER [facility] Encounter Notes: All associated encounter notes This section contains the clinical notes associated to the Encounter. Date/Time Encounter Note(s) Provider Source Dec 15, 2023 02:30 PM PHYSICIAN NOTE: LOCAL TITLE: MD NOTE STANDARD TITLE: PHYSICIAN NOTE DATE OF NOTE: DEC 15, 2023@14:30 ENTRY DATE: DEC 15, 2023@02:25:15 AUTHOR: Melisa FLOREZ EXP COSIGNER: URGENCY: STATUS: COMPLETED Pt is very pleasant 88 y/o M with PMH of HTN, HL, DMT2, CAD s/p 6 stents, PVD, carotid art disease, DAMIEN, AAA, CKD3, GERD/Jenkins's, Prostate ca Last visit 09/[address] [facility] [place] [facility] [place] Other providers: [facility] --urology Dr Samaria Reed in [place] [phone]-->stop ADT -plan to restart ADT if PSA increase --Cardiology Dr Flannery q6m- last 11/2023 - endocrinology Dr. Rudolph--> Feliciano [facility] - [facility] - GI Dr. Valdez - stop screening CRC, Jenkins's (last 07/2022)RTC prn - [facility] Vascular surgery q6-12m-last 02/2023 Dr Gilbert - eye [place] - audiology [place] - podiatry [place] accompanied by his daughter Mindi ([phone]) today since last visit no change in medications, no hospital admissions Patient reports feeling well #CKD3 pt was seen by renal Dr Starks -next 12/2023 lisinopril dc/d (2023) lasix 20mg daily takes iron supplementation q2d and magnesium daily #peripheral neuropathy feet numbness, tingling - unsteady gait takes gabapentin 300hs has a cane has new shoes for diabetic neuropathy SPEP/UPEP ordered bt renal - no results available for review today #DM2 f/w CPP denies hypoglycemia, no readings <70 due to CKD3 takes Metformin 500mg BID Semaglutide 1 mg Novolog 70/30 26 UNITS ac am and 22 units ac dinner Discontinued glipizide #no recent gout attacks on allopurinol #PVD seen by vascular surgery in February 2023 AAA stable continue with annual surveillance No significant carotid disease but needs follow-up had R LE angio to confirm that 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 and he does not need a femoropopliteal bypass -f/u with vascular scheduled for 01/2024 ridding bike 3x/week #severe DAMIEN-Dx 2022 - not fully compliant lazy to put CPAP back on after bathroom visit at 3-4am, but motivated to do better daughter baught him a medical watch ,monitoring steps/day #CAD/HTN/HL BP at home normal <130/70 compliant with medications denies CP/SOB/LAROSE at baseline/palpitations/dizzine ss/claudication h/o stents x 6 on DAPT h/o ND x2 ECHO 01/2022 - mildly reduced LVEF, new wma since 2017 f/w cardiology 2023 lisinopril discontinued by renal Lasix 20 mg daily PAST MEDICAL HISTORY: -- HTN -- HL -- DM2 -- CAD, h/o ND x2, s/p PCI stents x6 2004:PTCA 5 TaxusStents: LADx2 RCAx2 Prox RCA x1 09-20-06: Cypher Stent Presley Greenberg MD: [phone] Dr Flannery -- Other dyspnea and respiratory [...] HISTORY: -- 1957: 2 rt inguinal hernia repair/[facility] -- 1958: Rt Inguinal Hernia Repair/ [facility] -- 1977: Left Inguinal Hernia Repair -- 1969: Lipoma Removal -- Tonsillectomy and Adenoidectomy (under age 14) -- 2019 umbilical hernia repair -- 2019 cholectstectomy ALLERGIES: COLCHICINE/PROBENECID-ANAPHYL AXIS MEDICATIONS: daughter prefills meds q14d METOPROLOL SUCCINATE 100MG AMLODIPINE 5MG FUROSEMIDE 20MG OTC Non-VA ASPIRIN 81MG CLOPIDOGREL 75MG SIMVASTATIN 40MG FENOFIBRATE 145MG TAB OTC FISH OIL 2000MG (500MG DHA/EPA)BID NIACIN (SLO-NIACIN) 500mg BID OMEPRAZOLE 20MG BID NON VA Novolog 70/30 24 UNITS ac BREAKFAST, 20 units AC dinner METFORMIN 500MG BID SEMAGLUTIDE 1MG ALLOPURINOL 100MG BID Non-VA CHOLECALCIF 25MCG -OTC cacitrate/vit D OTC CYANOCOBALAMIN 250 MCG -OTC folic acid 800mg nonVA iron every 2 days 9art2023 by renal) DICLOFENAC NA 1% TOP GEL GABAPENTIN 300MG BEDTIME MAGNESIUM OXIDE 420MG BID LUBRICATING (PF) OPH OINT APPLY OTC BEnefiber - daily FAMILY HISTORY: --DM:no --Cancer:mother colon cancer --ND:FAM HX-ISCHEM HEART DIS--twin brother: CABG and valve surgery --CVA: no --Mental Health/addiction: --Other: SOCIAL HISTORY: --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 --Cohabitation: , recovered well after CVA in [...] Skin: no pruritus/rash - unsteady gait, no falls walking with a cane PHYSICAL EXAM: Vital Signs: Blood Pressure: 129/80 (12/15/2023 15:11) 109/57 (09/15/2023 11:21) 122/72 (04/28/2023 15:18) 112/72 (11/04/2022 14:35) 93/51 (04/15/2022 13:37)--> repeat manual 120/70 117/75 (10/15/2021 14:15) 124/74 (04/09/2021 10:02) Pulse: 86 (12/15/2023 15:11) Respiration: 18 Temperature: 97.9 F [36.6 C] (12/15/2023 15:11) Weight: BMI 32 10/15/2021 14:15 219.8 lb [99.70 kg] (12/15/2023 15:11) 09/15/2023 11:21 216.4 lb [98.16 kg] 04/28/2023 [...] DP diminished, diminished protective sensation by [facility] LABORATORY:11/2023 BLOOD Song Sep 15 Apr 20 October 16 Reference 2023 2023 2022 2022 WBC 7.72 7.86 7.09 7.20 K/cmm 4.5 - 11 HGB 12.7 L 12.8 12.6 L 12.8 g/dL 12.8 - 17 HCT 39.1 L 39.0 L 38.6 L 39.2 % 39.2 - 50.4 MCV 89.9 91.1 93.5 93.8 fl 82 - 99 PLT 187 189 117 L 116 L K/cmm 140 - 360 VIT. B12 (WROX): 884 TIBC (WROX): 430 IRON (WROX): 78 FERRITIN (WR): 38 TRANSFERRIN SATURATION: 18.1 L MAGNESIUM: 1.6 HGB A1C (WR): 6.7 H GLUCOSE: 101 H MICROALB/CR RATIO: canc MICROALBUMIN URINE: < 0.5 CREATININE URINE: 57.10 SERUM Nov 24 Sep 15 May 27 May 08 Reference 2023 2023 2022 2022 GLUCOSE 101 H 234 H 179 H 174 H mg/dL 65 - 100 BUN 29 H 25 32 H 29 H mg/dL 7 - 25 CREATININE 1.50 H 1.80 H 1.67 H 1.80 H mg/dL .5 - 1.4 Sodium 136 140 136 141 mmol/L 135 - 145 K+/Pot 4.2 5.0 4.7 4.6 mmol/L 3.5 - 5 CL 103 106 100 106 mmol/L 100 - 110 CO2 26 23 25 26 mEq/L 20 - 30 PROTEIN,TOTAL: 6.8 ALBUMIN: 3.6 ALKALINE PHOSPHATASE: 38 L BILIRUBIN,TOT.: 0.4 SGOT: 21 SGPT: 21 CHOLESTEROL: 120 TRIGLYCERIDE: 191 H LDL CHOL: 46 HDL: 36 L CHOL/HDL RATIO: 3.3 PROSTATIC SP ANTIGEN: 1.00 VITAMIN D TOTAL: 28 #01/2022 ECHO LA is mildly dilated LV [...] Prostate ca #IDDM2: well controlled , A1c 6.7 -f/w diabetes clinic novolog gabby 70/30, 24 units ac BREAKFAST AND 20 night METFORMIN HCL 500mg BID SEMAGLUTIDE 1MG q1w -eye: 09/2023 Type 2 Diabetes mellitus without retinopathy or CSME -feet: f/w podiatry - dimished PP, sensation #periheral neuropathy: -f/w podiatry, diabetic shoes, fall risk, ambulates with a a cane, fall prevention reviewed with pt -gabapentin hs prn #HTN: well controlled Non-VA METOPROLOL SUCCINATE 100MG Non-VA AMLODIPINE 5MG Non-VA FUROSEMIDE 20MG #HL: Well-controlled LDL 46- on statin/fibrate for secondary prevention #CAD s/p PCI stents x6 HFrEF (ECHO 01/2022), normotensive, euvolemic today -f/w [facility] cardiology -on DAPT, statin/fibrate, BB, diuretic, amlodipine #CKD3: GFR 45, ACR nl (11/2023), ACEi dc/d by renal 2023 -avoid nephrotoxic agents -DM/HTN control -f/w [facility] renal #iron supplementation -started 2023 by renal q2d #hypomagnesemia normalized with supplementation - #DAMIEN SEVERE Dx 11/2022 HST JOON of 40.9 events per hour and SpO2 jose of 86.0%. -CPAP encouraged regular use, consequences of untreated obstructive sleep apnea reviewed with patient #carotid art disease 02/2023 US: <50% b/l- Asx -> no indication for follow-up #PVD MARILUZ R 0.66 L 0.62 -claudication stable # Abdominal aortic aneurysm -stable 02/2023 3.2 cm AAA -f/w [facility] vascular surgery q6m for surveillance #h/o prostate cancer off of ADT since 05/2020 PSA 1 (11/2023) -f/w [facility] urology #bone health: pt was on ADT #Osteopenia to continue with vitamin D and calcium 05/2021 DEXA LS T -1.4, femoral neck left T- 0.9, total hip left T- 0.9 #GERD, Jenkins's: last EGD 07/2022 Jenkins's+ no dysplasia - dc/d screening asympotomatic -on PPI daily #diarrhea -resolved with benefiber #Gout: well controlled on PPX- last attack years ago Non-VA ALLOPURINOL 200MG #vit B deficiency: normalized on supplementation #insomnia: -gabapentin 300mg hs Healthcare maintenance: --Lipids: LDL 46 (11/2023) --Diabetes: A1c 6.7 (11/2023) --Colon CA (50-75): stopped screening/age 2009: Colonoscopy: Polypectomy 05/2019 colonoscopy --> few benign appearing diminutive polyps in rectum-> stop screening due to age Dr. Valdez [facility]. 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 Virtual ( ), F2F ( x) (x )non fasting labs order prior to f/u + B12, TSH , Mg ( X)request records from outside providers -cardiology, renal , vascular surgery, urology -last note (request prior to next visit -not now) Medication Reconciliation: Outpatient: Has the patient been taking medications as documented in the EMLR? YES: The patient has been taking medications as documented in the EMLR. Essential Medication List for Review used to complete this medication reconciliation. INCLUDED IN THIS LIST: Alphabetical list of active outpatient prescriptions [facility] from this [facility] ([facility]) and dispensed from another [place] or [facility] facility (remote) as well as inpatient [...] provider. /radhames/ MARGARITA FLOREZ MD PHYSICIAN Signed: 12/19/2023 18:35 Receipt Acknowledged By: 12/21/2023 09:00 /radhames/ MERY MCKEE [facility]
--- OUTSIDE RECORDS SUMMARY | 2024-05-24 13:15 | XMS_ITS | Encounter Summary ---
Author Name [facility] [place] Organization [place] Address [address] [place] [id number] Care Team Providers Care Label Press Operator Name Role Phone MARGARITA FLOREZ Primary [...] Policy Bejarano ALVA [place] [facility] Dec 13, 2013 [id number] DAGMAR,ZIA ERT PATIENT BCBS [place] MEDICARE SUPPLEMEN [facility] November 06, 2007 [id number] [phone] DAGMAR,ZIA ERT PATIENT BCBS [place] MEDICARE SUPPLEMEN [facility] November 06, 2007 [id number] [phone] DAGMAR,ZIA ERT PATIENT [place] [facility] November 06, 2007 [id number] [phone] DAGMAR,ZIA ERT PATIENT BCBS OF [facility] MEDICARE SUPPLEMEN [facility] Dec 13, 2013 [id number] DAGMAR,ZIA ERT PAT[place] SUPPLEMEN [facility]/ WHITM AN/MX Dec 13, 2008 [id number] DAGMAR,ZIA ERT PATIENT MEDICARE (WNR) MEDICARE () PART B May 15, 2012 PART B [id number] DAGMAR,ZIA ERT PATIENT MEDICARE (WNR) MEDICARE () PART A May 15, 2002 PART A [id number] [phone] DAGMAR,ZIA ERT PATIENT MEDICARE (WNR) MEDICARE (M) PART B May 15, 2002 PART B [id number] DAGMAR,ZIA ERT PATIENT MEDICARE (WNR) MEDICARE () PART A May 15, 2002 PART A [id number] DAGMAR,ZIA ERT PATIENT MEDICARE (WNR) MEDICARE () PART B May 15, 2002 PART B [id number] [phone] DAGMAR,ZIA ERT PATIENT MEDICARE (WNR) MEDICARE () PART B May 15, 2002 PART B [id number] [phone] DAGMAR,ZIA ERT PATIENT MEDICARE (WNR) MEDICARE () PART A May 15, 2002 PART A [id number] DAGMAR,ZIA ERT PATIENT MEDICARE (WNR) MEDICARE () PART A May 15, 2002 PART A [id number] DAGMAR,ZIA ERT PATIENT Selected Encounter This section includes the information on record at [place] for the Encounter. Date/Time Encounter Type Encounter Description Reason Pro vider Source Nov 18, 2023 12:00 AM Outpatient Encounter EVENT (HISTORICAL) IHE Encounter Template Text not used by [...] 20 appointments. The data comes from all [place] treatment facilities. Appointment Date/Time Appointment Type Appointme nt Facility Name Dec 15, 2023 02:30 PM [facility]ORY [facility] Dec 30, 2023 03:00 PM [place]ORY [place]ICINE [place] [facility] [facility] Mar 02, 2024 03:00 PM AMBULATORY - MEDICINE [facility] Apr 27, 2024 10:00 AM [place] [facility] [facility] Lab Results: +/- 30 days of the encounter This section includes the Chemistry and Hematology Lab Results on record with [place] for the patient. Radiology Reports and Pathology Reports are provided separately, in subsequent sections. Lab Results This section contains the Chemistry/Hematology Results that were resulted 30 days before or 30 daysafter the date of the Encounter. Date/Time Source Result Type Result - Unit Interpretation Reference Range Comment Nov 25, 2023 09:49 AM [facility] PSA Specimen Type: SERUM No comment entered. Ordering Provider: MARGARITA DIAMOND Report Released Date/Time: Sep 15, 2023 01:00 PM Reporting Lab: [place] [facility] [place] [address] [address] Performing Lab: [place] [facility] [place] [address] [address] PSA 1.00 ng/mL 0.00-4.00 Nov 25, 2023 09:49 AM [facility] VITAMIN D (25-OH) Specimen Type: SERUM No comment entered. Ordering Provider: MARGARITA DIAMOND Report Released Date/Time: Sep 15, 2023 12:57 PM Reporting Lab: [place] [facility] [place] [facility] [address] [facility] [address] Performing Lab: [place] [facility] [facility] [place] [address] [address] VITAMIN D (25-OH) 28 ng/mL 20-50 Nov 25, 2023 09:49 AM [facility] FERRITIN Specimen Type: SERUM No comment entered. Ordering Provider: MARGARITA DIAMOND Report Released Date/Time: Sep 15, 2023 12:57 PM Reporting Lab: [address] [address] Performing Lab: [address] [address] FERRITIN 38 ng/mL 20-300 Nov 25, 2023 09:49 AM [facility] HEMOGLOBIN A1C PANEL Specimen Type: BLOOD Comment: [...] Sep 15, 2023 12:57 PM Reporting Lab: [address] [address] Performing Lab: [address] [address] HEMOGLOBIN A1C 6.7 H 4.0-5.6 Nov 25, 2023 09:49 AM [facility] LIVER FUNCTION Specimen Type: SERUM No comment entered. Ordering Provider: MARGARITA DIAMOND Report Released Date/Time: Sep 15, 2023 12:57 PM Reporting Lab: [address] [address] Performing Lab: [address] [address] PROTEIN,TOTAL 6.8 g/dL 6.0-8.3 ALBUMIN 3.6 g/dL 3.5-5.0 ALKALINE PHOSPHATASE 38 U/L L 40-150 AST 21 U/L 5-34 ALT 21 U/L BILIRUBIN, TOTAL 0.4 mg/dL 0.2-1.2 Nov 25, 2023 09:49 AM [facility] LIPID PANEL, NON FASTING Specimen Type: SERUM No comment entered. Ordering Provider: MARGARITA DIAMOND Report Released Date/Time: Sep 15, 2023 12:57 PM Reporting Lab: [address] [address] Performing Lab: [facility] [address] [facility] [address] CHOLESTEROL 120 mg/dL TRIGLYCERIDE 191 mg/dL H 0-150 LDL calculated 46 mg/dL 0-129 CHOL/HDL 3.3 HDL CHOLESTEROL 36 mg/dL L 40-60 Nov 25, 2023 09:49 AM [facility] MAGNESIUM Specimen Type: SERUM No comment entered. Ordering Provider: MARGARITA DIAMOND Report Released Date/Time: Sep 15, 2023 12:57 PM Reporting Lab: [address] [address] Performing Lab: [address] [address] MAGNESIUM 1.6 mg/dL 1.6-2.6 Nov 25, 2023 09:49 AM [facility] IRON & TIBC PANEL Specimen Type: SERUM No comment entered. Ordering Provider: MARGARITA DIAMOND Report Released Date/Time: Sep 15, 2023 12:57 PM Reporting Lab: [address] [address] Performing Lab: [address] [address] TIBC 430 ug/dL 204-475 IRON 78 ug/dL 40-160 Transferrin Saturation 18.1 L 20.0-50.0 Nov 25, 2023 09:49 AM [facility] MICROALBUMIN CREATININE RATIO PANEL Spe cimen Type: URINE No comment entered. Ordering Provider: MARGARITA DIAMOND Report Released Date/Time: Sep 15, 2023 12:57 PM Reporting Lab: [address] [address] Performing Lab: [address] [address] MICROALBUMIN/C REATININE RATIO canc mg/g 0-29.9 MICROALBUMIN,Q UANTITATIVE < 0.5 mg/dL RR UNAVAIL CREATININE URINE 57.10 mg/dL Nov 25, 2023 09:49 AM [facility] VITAMIN B12 Specimen Type: SERUM No comment entered. Ordering Provider: MARGARITA DIAMOND Report Released Date/Time: Sep 15, 2023 12:57 PM Reporting Lab: [address] [address] Performing Lab: [address] [address] VITAMIN B12 884 pg/mL 200-900 Nov 25, 2023 09:49 AM [facility] CBC AND DIFF (AUTO) Specimen Type: BLOOD No comment entered. Ordering Provider: MARGARITA DIAMOND Report Released Date/Time: Sep 15, 2023 12:57 PM Reporting Lab: [address] [address] Performing Lab: [address] [address] WBC 7.72 10*3/uL 4.50-11.00 RBC 4.35 10*6/uL 4.23-5.66 HGB 12.7 g/dL L 12.8-17 HCT 39.1 L 39.2-50.4 MCV 89.9 fL 82-99 MCHC 32.5 g/dL 30.8-35.1 PLT 187 10*3/uL 140-360 RDW-CV 14.2 12.0-16.0 [place], Abs 0.63 10*3/uL 0.30-1.10 MCH 29.2 pg 26.2-32.6 Neut % 62.7 43.7-75.8 LYMPH % 24.5 14.0-42.3 [place] % 8.2 5.1-13.7 Eos % 3.5 0.4-6.8 Baso % 0.6 0.1-2.0 Neut, Abs 4.84 10*3/uL 2.20-7.60 Lymph, Abs 1.89 10*3/uL 1.00-3.20 Eos, Abs 0.27 10*3/uL 0.03-0.44 Baso, Abs 0.05 10*3/uL 0.01-0.13 Immature Gran % 0.5 0.0-0.7 Immature Gran, Abs 0.04 10*3/uL 0.00-0.06 Nov 25, 2023 09:49 AM [facility] BASIC METABOLIC PANEL (non-fasting) Spe cimen Type: SERUM No comment entered. Ordering Provider: MARGARITA DIAMOND Report Released Date/Time: Sep 15, 2023 12:57 PM Reporting Lab: [facility] [address] [facility] [address] Performing Lab: [facility] [address] [facility] [address] UREA NITROGEN 29 mg/dL H 7-25 GLUCOSE [...] and tobacco- related health factors from the [place] facility where the Encounter took place. Current Smoking Status This section includes the most current smoking, or tobacco-related health factor, from the [place] facility where the Encounter took place. Date/Time Current Smoking Status Comment Facil ity Apr 15, 2022 01:00 PM VA-TOBACCO NEVER USED [facility] Encounter Notes: All associated encounter notes This section contains the clinical notes associated to the Encounter. Date/Time Encounter Note(s) Provider Source Nov 18, 2023 12:00 AM NONVA NOTE: LOCAL TITLE: NON-VA OUTPATIENT NOTES STANDARD TITLE: NONVA NOTE DATE OF NOTE: NOV 18, 2023 ENTRY DATE: DEC 11, 2023@11:53:28 AUTHOR: MARIA ESTHER WEBER EXP COSIGNER: URGENCY: STATUS: COMPLETED VistA Imaging - Scanned Document SCANNED DOCUMENT SIGNATURE NOT REQUIRED Electronically Filed: 12/11/2023 by: MARIA ESTHER [facility]
--- OUTSIDE RECORDS SUMMARY | 2024-05-24 13:15 | XMS_ITS | Encounter Summary ---
Author Name [place] Address [address] [place] [address] Care Team Providers Care Abstract Searcher Name Role Phone MARGARITA FLOREZ Primary Care [...] Policy Bejarano ALVA [place] [facility] Dec 13, 2013 [id number] DAGMAR,ZIA ERT PATIENT BCBS [place] MEDICARE SUPPLEMEN [facility] November 06, 2007 [id number] DAGMAR,ZIA ERT PATIENT [place] MED[place] SUPPLEMEN [facility] 2 November 06, 2007 [id number] DAGMAR,ZIA ERT PATIENT [place] [facility] 2 November 06, 2007 [id number] [phone] DAGMAR,ZIA ERT PATIENT BCBS OF [facility] MEDICARE SUPPLEMEN [facility] Dec 13, 2013 [id number] [phone] DAGMAR,ZIA ERT PATIENT [place] MED[place] SUPPLEMEN [facility] MMHG/ WHITM AN/MX Dec 13, 2008 [id number] DAGMAR,ZIA ERT PATIENT MEDICARE (WNR) MEDICARE () PART B May 15, 2012 PART B [id number] [phone] DAGMAR,ZIA ERT PATIENT MEDICARE (WNR) MEDICARE () PART A May 15, 2002 PART A [id number] DAGMAR,ZIA ERT PATIENT MEDICARE (WNR) MEDICARE (M) PART B May 15, 2002 PART B [id number] [phone] DAGMAR,ZIA ERT PATIENT MEDICARE (WNR) MEDICARE () PART A May 15, 2002 PART A [id number] [phone] DAGMAR,ZIA ERT PATIENT MEDICARE (WNR) MEDICARE () PART B May 15, 2002 PART B [id number] [phone] DAGMAR,ZIA ERT PATIENT MEDICARE (WNR) MEDICARE () PART A May 15, 2002 PART A [id number] DAGMAR,ZIA ERT PATIENT MEDICARE (WNR) MEDICARE () PART B May 15, 2002 PART B [id number] DAGMAR,ZIA ERT PATIENT MEDICARE (WNR) MEDICARE () PART A May 15, 2002 PART A [id number] DAGMAR,ZIA ERT PATIENT Selected Encounter This section includes the information on record at [place] for the Encounter. Date/Time Encounter Type Encounter Description Reason Pro vider Source October 20, 2023 03:00 PM Outpatient Encounter PRIMARY CARE/MEDICINE IHE Encounter [...] 30, 2023 03:00 PM AMBULATORY - MEDICINE [facility] Mar 02, 2024 03:00 PM AMBULATORY [...] Range Comment Sep 23, 2023 01:35 PM [facility] COVID-19 FLU/RSV DIAGNOSTIC PANEL Speci men Type: NASOPHARYNX Comment: This test is authorized for emergency use only. False negative results may occur if virus is present at levels below the analytical limit of detection.Nega tive results do not preclude SARS-CoV-2, influenza or RSV infection and should not be used as the sole basis for treatment or other patient management decisions.[facility] mone FLUVID: HCPs: https://www.fd a.gov/media/ 1923/download. Patients: https://www.[employer] a.gov/media/ 9501/download Ordering Provider: SAMREEN ADHIKARI Report Released Date/Time: Sep 23, 2023 01:14 PM Reporting Lab: [address] [address] Performing Lab: [address] [address] COVID-19 PCR (FLUVID) NEGATIVE NEGATIVE FLU A [...] Smoking Status Comment Facil juan david Apr 28, 2023 03:00 PM VA-TOBACCO NEVER USED [facility] Tobacco Use History This section includes a history of the smoking, or tobacco-related health factors, that were collected on or before the date of the Encounter. The data comes from the [place] facility where the Encounter took place. Date/Time Smoking Status/Tobacco Use Comment F acility Apr 09, 2021 10:00 AM VA-TOBACCO NEVER USED [facility] Mar 13, 2020 12:30 PM VA-TOBACCO NEVER USED [facility] Feb 02, 2018 02:02 PM VA-TOBACCO NEVER USED [facility] Mar 10, 2017 01:57 PM LIFETIME NON-TOBACCO USER [facility] Feb 11, 2016 02:44 PM LIFETIME NON-TOBACCO USER [facility] May 09, 2009 09:43 AM LIFETIME NON-TOBACCO USER [facility] Radiology Reports: +/- 30 days of the [...] the Encounter. The data comes from all [facility] facilities. 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 Date/Time Encounter Note(s) Provider Source November 05, 2023 11:14 AM MEDICATION MGT NOT E: LOCAL TITLE: OUTPATIENT MEDICATION REQUEST STANDARD TITLE: MEDICATION MGT NOTE DATE OF NOTE: NOVEMBER 05, 2023@11:14 ENTRY DATE: NOVEMBER 05, 2023@11:14:06 AUTHOR: LENNOX PEARCE EXP COSIGNER: URGENCY: STATUS: COMPLETED Medication Request Date of Request: October GABAPENTIN CAP,ORAL 300MG TAKE ONE CAPSULE BY MOUTH AT BEDTIME Quantity: 90 Refills: 1 Requests for MAIL /radhames/ LENNOX PEARCE RN REGISTERED NURSE Signed: 11/05/2023 11:14 Receipt Acknowledged By: 11/06/2023 14:59 /es/ MARGARITA FLOREZ MD PHYSICIAN [place]
--- OUTSIDE RECORDS SUMMARY | 2024-05-24 13:16 | XMS_ITS ---
Author Name [facility] [place] Organization [place] Address [address] [place] [address] Care Team Providers Care Residential Sales Manager Name Role Phone MARGARITA FLOREZ Primary [...] Policy Bejarano ALVA [place] [facility] Dec 13, 2013 [id number] DAGMAR,ZIA ERT PATIENT BCBS [place] MEDICARE SUPPLEMEN [facility] November 06, 2007 [id number] [phone] DAGMAR,ZIA ERT PATIENT [place] MED[place] SUPPLEMEN [facility] 2 November 06, 2007 [id number] DAGMAR,ZIA ERT PATIENT [place] MED[place] SUPPLEMEN [facility] 2 November 06, 2007 [id number] DAGMAR,ZIA ERT PATIENT BCBS OF [facility] MEDICARE SUPPLEMEN [facility] Dec 13, 2013 [id number] DAGMAR,ZIA ERT PATIENT [place] MED[place] SUPPLEMEN [facility] MMHG/ WHITM AN/MX Dec 13, 2008 [id number] DAGMAR,ZIA ERT PATIENT MEDICARE (WNR) MEDICARE () PART B May 15, 2012 PART B [id number] DAGMAR,ZIA ERT PATIENT MEDICARE (WNR) MEDICARE () PART A May 15, 2002 PART A [id number] DAGMAR,ZAI ERT PATIENT MEDICARE (WNR) MEDICARE () PART A May 15, 2002 PART A [id number] DAGMAR,ZIA ERT PATIENT MEDICARE (WNR) MEDICARE () PART B May 15, 2002 PART B [id number] DAGMAR,ZIA ERT PATIENT MEDICARE (WNR) MEDICARE () PART A May 15, 2002 PART A [id number] [phone] DAGMAR,ZIA ERT PATIENT MEDICARE (WNR) MEDICARE () PART B May 15, 2002 PART B [id number] [phone] [phone] DAGMAR,ZIA ERT PATIENT MEDICARE (WNR) MEDICARE () PART A May 15, 2002 PART A [id number] DAGMAR,ZIA ERT PATIENT MEDICARE (WNR) MEDICARE () PART B May 15, 2002 PART B [id number] [phone] DAGMAR,ZIA ERT PATIENT Selected Encounter This section includes the information on record at [place] for the Encounter. Date/Time Encounter Type Encounter Description Reason Pro vider Source May 18, 2024 03:54 PM Outpatient Encounter PRIMARY CARE/MEDICINE IHE Encounter [...] 20 appointments. The data comes from all [place] treatment facilities. Appointment Date/Time Appointment Type Appointme nt Facility Name Jul 12, 2024 03:30 PM AMBULATORY - MEDICINE [facility] Jul 20, 2024 03:00 PM [facility] Aug 03, 2024 03:00 PM [place] [facility] [place] [facility] November 01, 2024 03:30 PM [place] [facility] [place] [facility] Social History: Smoking Status (Most current) and Tobacco Use (All prior to encounter date) This section includes the most current, and the historical, smoking and tobacco- related health factors from the [place] facility where the Encounter took place. Current Smoking Status This section includes the most current smoking, or tobacco-related health factor, from the [place] facility where the Encounter took place. Date/Time Current Smoking Status Comment Facil ity Apr 15, 2022 01:00 PM [facility] Encounter Notes: All associated encounter notes This section contains the clinical notes associated to the Encounter. Date/Time Encounter Note(s) Provider Source May 18, 2024 03:54 PM PRIMARY CARE NOTE: LOCAL TITLE: WALK-IN NOTE PRIMARY CARE (T) STANDARD TITLE: PRIMARY CARE NOTE DATE OF NOTE: MAY 18, 2024@15:54 ENTRY DATE: MAY 18, 2024@15:54:57 AUTHOR: JEAN PAUL CHOWDHURY EXP COSIGNER: URGENCY: STATUS: COMPLETED <====Click to Start Advanced Medical Support presents to the Primary Care clinic with the following request: [ X ]Medication Renewal/Refill [ ]Consultation with Team RN [ ]Symptoms [ ]Other The states they are: [ ]Waiting [ X ]Not Waiting No Walk in visit scheduled with PACT Nurse [ X ] At this encounter the 's demographics were verified. [ X ] At this encounter the [place]'s Insurance information was verified. [ X ] At this encounter the below scheduled visits for the were discussed and appointment reminder card was offered. Future appointments: 07/12/2024 15:30 CWM/SO/PACT 5 07/20/2024 15:00 CWM/SO/PODIATRY/ROSS 08/03/2024 15:00 CWM/SO/PHARM/PACT 2 11/01/2024 15:30 NHM/OPTOMETRY/DALE Monteroan requesting medication refill on the following: GABAPENTIN CAP,ORAL 300MG CLOPIDOGREL BISULFATE TAB 75MG Please mail once filled. /radhames/ JEAN PAUL SOTO Signed: 05/18/2024 15:56 Receipt Acknowledged By: 05/19/2024 13:32 /es/ HOOD MIKE LPN LPN 05/20/2024 15:56 /es/ AIDEE CHAVES RN REGISTERED NURSE JEAN PAUL CHOWDHURY
--- OUTSIDE RECORDS SUMMARY | 2024-05-24 13:16 | XMS_ITS | Encounter Summary ---
Author Name [facility] [place] Organization [facility] [place] Address [address] [place] [address] Care Team Providers Care Window Cleaner Name Role Phone MARGARITA FLOREZ Primary Care [...] Relationship to Policy Bejarano [place] [facility] Dec 13, 2013 [id number] DAGMAR,ZIA ERT PATIENT BCBS [place] MEDICARE SUPPLEMEN [facility] November 06, 2007 [id number] DAGMAR,ZIA ERT PATIENT [place] MED[place] SUPPLEMEN [facility] MEDEX 2 November 06, 2007 [id number] DAGMAR,ZIA ERT [place] [facility] 2 November 06, 2007 [id number] DAGMAR,ZIA ERT PATIENT BCBS OF [facility] MEDICARE SUPPLEMEN [facility] Dec 13, 2013 [id number] [phone] DAGMAR,ZIA ERT PATIENT [place] SUPP[place]MEN [facility]/ WHITM AN/MX Dec 13, 2008 [id number] DAGMAR,ZIA ERT PATIENT MEDICARE (WNR) MEDICARE () PART B May 15, 2012 PART B [id number] DAGMAR,ZIA ERT PATIENT MEDICARE (WNR) MEDICARE () PART A May 15, 2002 PART A [id number] DAGMAR,ZIA ERT PATIENT MEDICARE (WNR) MEDICARE () PART B May 15, 2002 PART B [id number] DAGMAR,ZIA ERT PATIENT MEDICARE (WNR) MEDICARE () PART A May 15, 2002 PART A [id number] DAGMAR,ZIA ERT PATIENT MEDICARE (WNR) MEDICARE () PART A May 15, 2002 PART A [id number] DAGMAR,ZIA ERT PATIENT MEDICARE (WNR) MEDICARE () PART B May 15, 2002 PART B [id number] DAGMAR,ZIA ERT PATIENT MEDICARE (WNR) MEDICARE () PART B May 15, 2002 PART B [id number] DAGMAR,ZIA ERT PATIENT MEDICARE (WNR) MEDICARE () PART A May 15, 2002 PART A [id number] DAGMAR,ZIA ERT PATIENT Selected Encounter This section includes the information on record at NH for the Encounter. Date/Time Encounter Type Encounter Description Reason Provider Source Mar 02, 2024 03:00 PM OFFICE O/P EST LOW 20 MIN PODIATRY ICD-10-CM L60.0 Ingrowing WILLY Delacruz [facility] Encounter Template Text not used by VA Assessments - Encounter Diagnoses This section includes the primary and secondary diagnoses documented for the Encounter. Date/Time Primary/Secondary Diagnosis Diagnosis Name Provider Source Mar 24, 2024 02:08 PM PRIMARY Ingrowing WILLY Delacruz [place] Mar 24, 2024 02:08 PM SECONDARY Pain in left toe(s) WILLY GARCÍA [place] Mar 24, 2024 02:08 PM SECONDARY Pain in right toe(s) WILLY GARCÍA [place] Mar 24, 2024 02:08 PM SECONDARY Type 2 diabetes w diabetic peripheral angiopath w/o gangrene WILLY GARCÍA Plan of Treatment: Future Appointments (+ 6 months) and Future Tests (+/- 45 days) The Plan of Treatment section includes future care activities for the patient from all NH treatmentfacilities. This section includes future appointments and future orders which are active, pending or scheduled. Future Appointments This section includes appointments that were scheduled to occur 6 months from the date of the Encounter, up to a maximum of 20 appointments. The data comes from all NH treatment facilities. Appointment Date/Time Appointment Type Appointme nt Facility Name Apr 27, 2024 10:00 AM AMBULATORY - MEDICINE [facility] Jul 12, 2024 03:30 PM AMBULATORY - MEDICINE [facility] Jul 20, 2024 03:00 PM AMBULATORY - MEDICINE [facility] Aug 03, 2024 03:00 PM AMBULATORY - MEDICINE [facility] Social History: Smoking Status (Most current) and Tobacco Use (All prior to encounter date) This section includes the most current, and the historical, smoking and tobacco- related health factors from the NH facility where the Encounter took place. Current Smoking Status This section includes the most current smoking, or tobacco-related health factor, from the NH facility where the Encounter took place. Date/Time Current Smoking Status Comment Jesus fall Apr 28, 2023 03[facility] [place] Tobacco Use History This section includes a history of the smoking, or tobacco-related health factors, that were collected on or before the date of the Encounter. The data comes from the NH facility where the Encounter took place. Date/Time Smoking Status/Tobacco Use Comment F acmelissa Apr 09, 2021 10:00 AM NH-TOBACCO NEVER USED [place] Mar 13, 2020 12:30 PM VA-TOBACCO NEVER USED [place] Feb 02, 2018 02:02 PM NH-TOBACCO NEVER USED [place] Mar 10, 2017 01:57 PM LIFETIME NON-TOBACCO USER [place] Feb 11, 2016 02:44 PM LIFETIME NON-TOBACCO USER [place] May 09, 2009 09:43 AM LIFETIME NON-TOBACCO USER [place] Encounter Notes: All associated encounter notes This section contains the clinical notes associated to the Encounter. Date/Time Encounter Note(s) Provider Source Mar 02, 2024 01:51 PM PODIATRY NOTE: LOCAL TITLE: PODIATRY NOTE STANDARD TITLE: PODIATRY NOTE DATE OF NOTE: MAR 02, 2024@13:51 ENTRY DATE: MAR 02, 2024@13:51:14 AUTHOR: WILLY GARCÍA EXP COSIGNER: URGENCY: STATUS: COMPLETED NOTE: HAS RECEIVED BOTH COVID VACCINE DOSES AT [facility] LAST SEEN FOR TREATMENT: 09/30/2023 S: Pt. is an 88 yo alert [...] FOR COMPLETE LIST NEEDED. *NOTE: A1c = 6.7 (LAST TAKEN: 11/2023) PLF=191dfhb week on prednisone RISK VALUE =2 HEIGHT: [...] present physical-medical status. Protective sensation utilizing a Munger-Adam lOg monofilament is 10/10 bilateral. ABOVE exams [...] try once a week. RTC 24 WEEKS (07/20 @ 3PM ???) *REVIEWED HOME FOOT CARE FEET ARE IN [...] this VA (local) and dispensed from another VA or DoD facility (remote) as well as [...] Remote Allergy/ADR Data available for this patient [place] [facility] [place] [facility] COLCHICINE/PROBENECID Med Recon NoGlossary (Tool #1) INCLUDED IN THIS LIST: Alphabetical list of active outpatient prescriptions dispensed from this VA (local) and dispensed from another VA or DoD facility (remote) as well as inpatient orders (local pending and active), local clinic medications, locally documented non-VA medications, and local prescriptions that have or been discontinued in the past 90 days. Non-VA Meds Last Documented On: Sep 15, 2023 NOTE The display of VA prescriptions dispensed from another VA or DoD facility (remote) is limited to active outpatient prescription entries matched to National Drug File at the originating site and may not include some items such as investigational drugs, compounds, etc. NOT INCLUDED IN THIS LIST: Medications self-entered by the patient into personal health records (i.e. [employer]) are NOT included in this list. Non-VA medications documented outside this NH, remote inpatient orders (regardless of status) and remote clinic medications are NOT included in this list. The patient and provider must always discuss medications the patient is taking, regardless of where the medication was dispensed or obtained. OUTPT ALLOPURINOL 100MG TAB (Status = Discontinued) TAKE ONE TABLET BY MOUTH TWICE DAILY FOR GOUT Rx# [id number] Last Released: 11/26/23 Qty/Days Supply: Rx Expiration Date: 05/17/24 Refills Remainin OUTPT ALLOPURINOL 100MG TAB (Status = Active/Suspended) TAKE ONE TABLET BY MOUTH TWICE DAILY FOR GOUT Rx# [id number] Last Released: 02/26/24 Qty/Days Supply: Rx Expiration Date: 12/15/24 Refills Remainin OUTPT AMLODIPINE BESYLATE 5MG TAB (Status = Discontinued) TAKE ONE TABLET BY MOUTH ONCE DAILY FOR BLOOD PRESSURE/HEART, DO NOT TAKE WITH GRAPEFRUIT JUICE Rx# [id number] Last Released: 10/01/23 Qty/Days Supply: 90 Rx Expiration Date: 05/17/24 Refills Remainin OUTPT AMLODIPINE BESYLATE 5MG TAB (Status = Active) TAKE ONE TABLET BY MOUTH ONCE DAILY FOR BLOOD PRESSURE/HEART, DO NOT TAKE WITH GRAPEFRUIT JUICE Rx# [id number] Last Released: 12/28/23 Qty/Days Supply: 90 Rx Expiration Date: 12/15/24 Refills Remainin Non-VA ASPIRIN 81MG EC TAB TAKE ONE TABLET BY MOUTH DAILY Non-VA medication not recommended by VA provider. Non-VA CHOLECALCIF 25MCG (D3-1,000UNIT) TAB TAKE ONE TABLET BY MOUTH ONCE DAILY Patient wants to buy from Non-VA pharmacy. Medication prescribed by Non-VA provider. Indication: FOR VITAMIN D DEFICIENCY OUTPT CLOPIDOGREL BISULFATE 75MG TAB (Status = Discontinued) TAKE ONE TABLET BY MOUTH ONCE DAILY TO PREVENT BLOOD CLOTS Rx# [id number] Last Released: 09/24/23 Qty/Days Supply: Rx Expiration Date: 05/17/24 Refills Remainin Indication: TO PREVENT BLOOD CLOTS OUTPT CLOPIDOGREL BISULFATE 75MG TAB (Status = Active/Suspended) TAKE ONE TABLET BY MOUTH ONCE DAILY TO PREVENT BLOOD CLOTS Rx# [id number] Last Released: 12/28/23 Qty/Days Supply: Rx Expiration Date: 12/15/24 Refills Remainin Indication: TO PREVENT BLOOD CLOTS Non-VA CYANOCOBALAMIN 250MCG TAB TAKE ONE TABLET BY MOUTH ONCE DAILY Patient wants to buy from Non-NH pharmacy. OUTPT FENOFIBRATE 145MG TAB (Status = Active) TAKE ONE TABLET BY MOUTH AT BEDTIME TO LOWER CHOLESTEROL Rx# [id number] Last Released: 02/01/24 Qty/Days Supply: Rx Expiration Date: 05/28/24 Refills Remainin Non-VA FERROUS GLUCONATE 324MG TAB TAKE ONE TABLET BY MOUTH EVERY 48 HOURS Patient wants to buy from Non-NH pharmacy. Medication prescribed by Non-VA provider. Indication: TO SUPPLEMENT IRON Non-VA FISH OIL 1000MG (500MG DHA/EPA) CAP TAKE 1 CAPSULE BY MOUTH DAILY Non-VA medication not recommended by VA provider. OUTPT FUROSEMIDE 20MG TAB (Status = Active) TAKE ONE TABLET BY MOUTH ONCE DAILY TO REMOVE FLUID/CONTROL BLOOD PRESSURE Rx# [id number] Last Released: 11/25/23 Qty/Days Supply: Rx Expiration Date: 09/15/24 Refills Remainin Indication: FOR EDEMA WITH DEFECTIVE KIDNEY FUNCTION OUTPT GABAPENTIN 300MG CAP (Status = Active) TAKE ONE CAPSULE BY MOUTH AT BEDTIME Rx# [id number] Last Released: 01/15/24 Qty/Days Supply: Rx Expiration Date: 11/06/24 Refills Remainin Non-VA INSULIN,ASPART,HUMAN 70/30 NOVOLOG INJ NOVOLOG BY INJECTION INJECT 16 UNITS SUBCUTANEOUSLY Patient wants to buy from Non-VA pharmacy. Medication prescribed by Non-VA provider. 16 units BEFORE MEALS breakfast, 12 units BEFORE MEALS dinner OUTPT INSULIN,ASPART,HUMAN 70/30 NOVOLOG INJ (Status = Active) INJECT 24 UNITS SUBCUTANEOUSLY EVERY MORNING AND INJECT 20 UNITS EVERY EVENING Rx# [id number] Last Released: 11/30/23 Qty/Days Supply: Rx Expiration Date: 06/10/24 Refills Remainin Indication: FOR DIABETES OUTPT MAGNESIUM OXIDE 420MG TAB (Status = Discontinued) TAKE ONE TABLET BY MOUTH TWICE DAILY FOR MAGNESIUM SUPPLEMENTATION Rx# [id number] Last Released: 07/30/23 Qty/Days Supply: 180/90 Rx Expiration Date: 04/23/24 Refills Remainin Indication: FOR MAGNESIUM SUPPLEMENTATION OUTPT MAGNESIUM OXIDE 420MG TAB (Status = Active) TAKE ONE TABLET BY MOUTH TWICE DAILY FOR MAGNESIUM SUPPLEMENTATION Rx# [id number] Last Released: 12/18/23 Qty/Days Supply: 180 Rx Expiration Date: 12/15/24 Refills Remainin Indication: FOR MAGNESIUM SUPPLEMENTATION OUTPT METFORMIN HCL 500MG 24HR SA TAB (Status = Discontinued) TAKE TWO TABLETS BY MOUTH ONCE DAILY Rx# [id number] Last Released: 09/18/23 Qty/Days Supply: 180 Rx Expiration Date: 05/17/24 Refills Remainin OUTPT METFORMIN HCL 500MG 24HR SA TAB (Status = Active) TAKE TWO TABLETS BY MOUTH ONCE DAILY Rx# [id number] Last Released: 02/01/24 Qty/Days Supply: 60/30 Rx Expiration Date: 12/15/24 Refills Remainin OUTPT METOPROLOL SUCCINATE 100MG SA TAB (Status = Active) TAKE ONE TABLET BY MOUTH ONCE DAILY FOR BLOOD PRESSURE/HEART Rx# [id number] Last Released: 02/01/24 Qty/Days Supply: 90/ Rx Expiration Date: 05/17/24 Refills Remainin OUTPT NIACIN (SLO-NIACIN) 750MG TAB,SA (Status = On Hold) TAKE ONE TABLET BY MOUTH TWICE DAILY Rx# [id number] Last Released: Qty/Days Supply: 200/90 Rx Expiration Date: 05/21/24 Refills Remainin OUTPT OMEPRAZOLE 20MG EC CAP (Status = Discontinued) TAKE ONE CAPSULE BY MOUTH TWICE DAILY Rx# [id number] Last Released: 06/02/23 Qty/Days Supply: 180/90 Rx Expiration Date: 05/17/24 Refills Remainin OUTPT OMEPRAZOLE 20MG EC CAP (Status = Active) TAKE ONE CAPSULE BY MOUTH TWICE DAILY Rx# [id number] Last Released: 12/18/23 Qty/Days Supply: 180/90 Rx Expiration Date: 12/15/24 Refills Remainin OUTPT SEMAGLUTIDE 1MG/0.75ML INJ PEN 3ML (Status = Active) INJECT 1MG SUBCUTANEOUSLY ONCE A WEEK FOR TYPE 2 DIABETES MELLITUS Rx# [id number] Last Released: 03/02/24 Qty/Days Supply: 07/12 Rx Expiration Date: 11/05/24 Refills Remainin Indication: FOR TYPE 2 DIABETES MELLITUS OUTPT SIMVASTATIN 80MG TAB (Status = Discontinued) TAKE ONE-HALF TABLET BY MOUTH ONCE DAILY FOR CHOLESTEROL Rx# [id number] Last Released: 10/26/23 Qty/Days Supply: Rx Expiration Date: 05/17/24 Refills Remainin OUTPT SIMVASTATIN 80MG TAB (Status = Active/Suspended) TAKE ONE-HALF TABLET BY MOUTH ONCE DAILY FOR CHOLESTEROL Rx# [id number] Last Released: 01/27/24 Qty/Days Supply: Rx Expiration Date: 12/15/24 Refills Remainin SUPPLIES OUTPT ACCU-CHEK GUIDE (GLUCOSE) TEST STRIP (Status = Active) USE 1 STRIP TO TEST BLOOD SUGARS TWICE DAILY Rx# [id number] Last Released: 05/05/23 Qty/Days Supply: 50/ Rx Expiration Date: 04/28/24 Refills Remainin Indication: DIABETES OUTPT GLUCOSE SENSOR DEXCOM G7 (Status = Active) USE 1 SENSOR DIRECTED EVERY 10 DAYS Rx# [id number] Last Released: 01/15/24 Qty/Days Supply: Rx Expiration Date: 08/05/24 Refills Remainin OUTPT INSULIN SYRINGE 0.5ML 30G 12MM (Status = Active) USE 1 SYRINGE SUBCUTANEOUSLY TWICE DAILY FOR INSULIN INJECTIONS Rx# [id number] Last Released: 02/18/24 Qty/Days Supply: 200/90 Rx Expiration Date: 06/10/24 Refills Remainin OUTPT LANCET,SOFTCLIX (Status = Active) USE 1 LANCET TOPICALLY ONCE DAILY TO TEST BLOOD SUGAR Rx# [id number] Last Released: 05/05/23 Qty/Days Supply: 200/90 Rx Expiration Date: 04/28/24 Refills Remainin Indication: DIABETES OUTPT SKIN BARRIER WIPE TORBOT SKIN TAC (Status = Active) USE 1 WIPE TOPICALLY EVERY 10 DAYS Rx# [id number] Last Released: 01/07/24 Qty/Days Supply: 50/90 Rx Expiration Date: 03/24/24 Refills Remainin /radhames/ WILLY GARCÍA DPM INSURANCE PLAN SPECIALIST Signed: 03/02/2024 15:32 WILLY GARCÍA [place]
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
--- OUTSIDE RECORDS SUMMARY | 2024-05-24 13:16 | XMS_ITS | Encounter Summary ---
Author Name [place] Address [address] [place] [address] Care Team Providers Care Social Secretary Name Role Phone MARGARITA FLOREZ Primary Care [...] Policy Bejarano ALVA [place] [facility] Dec 13, 2013 [id number] [phone] DAGMAR,ZIA ERT PATIENT [place]BS [place] MEDICARE SUPPLEMEN [facility] November 06, 2007 [id number] [phone] DAGMAR,ZIA ERT PATIENT [place]BS [place] MED[place] SUPPLEMEN [facility] MEDEX 2 November 06, 2007 [id number] DAGMAR,ZIA ERT PATIENT [place] SUPPLEMEN [facility] MEDEX 2 November 06, 2007 [id number] DAGMAR,ZIA ERT PATIENT BCBS OF [facility] MEDICARE SUPPLEMEN [facility] Dec 13, 2013 [id number] DAGMAR,ZIA ERT PATIENT [place] SUPPLEMEN [facility] MMHG/ WHITM AN/MX Dec 13, 2008 [id number] [phone] DAGMAR,ZIA ERT PATIENT MEDICARE (WNR) MEDICARE () PART B May 15, 2012 PART B [id number] DAGMAR,ZIA ERT PATIENT MEDICARE (WNR) MEDICARE () PART A May 15, 2002 PART A [id number] DAGMAR,ZIA ERT PATIENT MEDICARE (WNR) MEDICARE (M) PART B May 15, 2002 PART B [id number] [phone] DAGMAR,ZIA ERT PATIENT MEDICARE (WNR) MEDICARE () PART A May 15, 2002 PART A [id number] DAGMAR,ZIA ERT PATIENT MEDICARE (WNR) MEDICARE () PART B May 15, 2002 PART B [id number] [phone] DAGMAR,ZIA ERT PATIENT MEDICARE (WNR) MEDICARE () PART A May 15, 2002 PART A [id number] [phone] DAGMAR,ZIA ERT PATIENT MEDICARE (WNR) MEDICARE () PART B May 15, 2002 PART B [id number] [phone] DAGMAR,ZIA ERT PATIENT MEDICARE (WNR) MEDICARE () PART A May 15, 2002 PART A [id number] DAGMAR,ZIA ERT PATIENT Selected Encounter This section includes the information on record at [place] for the Encounter. Date/Time Encounter Type Encounter Description Reason Pro vider Source Apr 28, 2024 08:21 AM Outpatient Encounter CLINICAL PHARMACY IHE Encounter Template [...] 12, 2024 03:30 PM AMBULATORY - MEDICINE [facility] Jul 20, 2024 03:00 PM AMBULATORY - MEDICINE [facility] Aug 03, 2024 03:00 PM AMBULATORY - MEDICINE [facility] [place] [facility] Social History: Smoking Status (Most current) [...] VA-TOBACCO NEVER USED [facility] [place] [facility] Encounter Notes: All associated encounter notes This section contains the clinical notes associated to the Encounter. Date/Time Encounter Note(s) Provider Source Apr 28, 2024 08:22 AM DIABETOLOGY NOTE: LOCAL TITLE: INSULIN PUMP/CGM DOWNLOAD (T) STANDARD TITLE: DIABETOLOGY NOTE DATE OF NOTE: APR 28, 2024@08:22 ENTRY DATE: APR 28, 2024@08:22:04 AUTHOR: TARUN GILL EXP COSIGNER: URGENCY: STATUS: COMPLETED Please select: Personal Continuous Glucose Monitor- DEXCOM G7 Date of Documentation:Apr Please see attached scanned document in [employer]. /radhames/ TARUN GILL CLINICAL DIRECTOR OF MECHANICAL ENGINEERING Signed: 04/28/2024 08:22 TARUN GILL DRESDEN
--- OUTSIDE RECORDS SUMMARY | 2024-05-24 13:17 | XMS_ITS ---
Author Name [facility] [place] Organization [place] Address [address] [place] [address] Care Team Providers Care Cafe Cook Name Role Phone JERALD TENORIO Primary Care Provide r Unavailable Insurance Providers: [...] Policy Bejarano [place] [facility] Dec 13, 2013 [id number] [phone] DAGMAR,ZIA ERT PATIENT [place]BS [place] MEDICARE SUPPLEMEN [facility] November 06, 2007 [id number] DAGMAR,ZIA ERT PATIENT [place] SUPPLEMEN [facility] MEDEX 2 November 06, 2007 [id number] DAGMAR,ZIA ERT PATIENT [place] SUPPLEMEN [facility] MEDEX 2 November 06, 2007 [id number] [phone] DAGMAR,ZIA ERT PATIENT BCBS OF [facility] MEDICARE SUPPLEMEN [facility] Dec 13, 2013 [id number] DAGMAR,ZIA ERT PATIENT [place] SUPPLEMEN [facility] MMHG/ WHITM AN/MX Dec 13, 2008 [id number] [phone] DAGMAR,ZIA ERT PATIENT MEDICARE (WNR) MEDICARE () PART B May 15, 2012 PART B [id number] DAGMAR,ZIA ERT PATIENT MEDICARE (WNR) MEDICARE () PART A May 15, 2002 PART A [id number] DAGMAR,ZIA ERT PATIENT MEDICARE (WNR) MEDICARE (M) PART B May 15, 2002 PART B [id number] DAGMAR,ZIA ERT PATIENT MEDICARE (WNR) MEDICARE () PART A May 15, 2002 PART A [id number] DAGMAR,ZIA ERT PATIENT MEDICARE (WNR) MEDICARE () PART A May 15, 2002 PART A [id number] DAGMAR,ZIA ERT PATIENT MEDICARE (WNR) MEDICARE () PART B May 15, 2002 PART B [id number] [phone] DAGMAR,ZIA ERT PATIENT MEDICARE (WNR) MEDICARE () PART B May 15, 2002 PART B [id number] [phone] DAGMAR,ZIA ERT PATIENT MEDICARE (WNR) MEDICARE () PART A May 15, 2002 PART A [id number] DAGMAR,ZIA ERT PATIENT Selected Encounter This section includes the information on record at [place] for the Encounter. Date/Time Encounter Type Encounter Description Reason Pro vider Source May 19, 2024 01:33 PM Outpatient Encounter PRIMARY CARE/MEDICINE IHE Encounter Template Text not used by [place] Plan of Treatment: Future Appointments (+ 6 [...] 20 appointments. The data comes from all [place] treatment facilities. Appointment Date/Time Appointment Type Appointme nt Facility Name Jul 12, 2024 03:30 PM AMBULATORY - MEDICINE [facility] Jul 20, 2024 03:00 PM [facility] Aug 03, 2024 03:00 PM AMBULATORY - MEDICINE [place] [facility] November 01, 2024 03:30 PM AMBULATORY - MEDICINE [place] [facility] Social History: Smoking Status (Most current) and Tobacco Use (All prior to encounter date) This section includes the most current, and the historical, smoking and tobacco- related health factors from the VA facility where the Encounter took place. Current Smoking Status This section includes the most current smoking, or tobacco-related health factor, from the VA facility where the Encounter took place. Date/Time Current Smoking Status Comment Facil ity Apr 15, 2022 01:00 PM [facility] Encounter Notes: All associated encounter notes This section contains the clinical notes associated to the Encounter. Date/Time Encounter Note(s) Provider Source May 19, 2024 01:36 PM ACCOUNTING OF DISC LOSURES NOTE: LOCAL TITLE: STATE PRESCRIPTION DRUG MONITORING PROGRAM STANDARD TITLE: ACCOUNTING OF DISCLOSURES NOTE DATE OF NOTE: MAY 19, 2024@13:36:12 ENTRY DATE: MAY 19, 2024@13:36:12 AUTHOR: VIVIAN MIKE EXP COSIGNER: JERALD TENORIO URGENCY: STATUS: COMPLETED This PDMP query was submitted by Vivian Mike on behalf of Jerald Tenorio The clinical justification for this PDMP query is to review controlled substances prescribed outside of the VA, and any additional information that may become available, as an important component of standard clinical care, and in accordance with [facility] policy. Patient information was shared with the PDMP Appriss Mccrory. The VA prescriber, for which I am a delegate, will be alerted of these PDMP findings through co-signature of this progress note. No prescription(s) for controlled substances outside the VA were found in the last 90 days. /radhames/ VIVIAN MIKE LPN LPN Signed: 05/19/2024 13:36 /es/ JERALD TENORIO MD PHYSICIAN Cosigned: 05/19/2024 17:03 VIVIAN MIKE May 19, 2024 01:33 PM MEDICATION MGT NOT E: LOCAL TITLE: OUTPATIENT MEDICATION REQUEST STANDARD TITLE: MEDICATION MGT NOTE DATE OF NOTE: MAY 19, 2024@13:33 ENTRY DATE: MAY 19, 2024@13:33:58 AUTHOR: VIVIAN MIKE EXP COSIGNER: URGENCY: STATUS: COMPLETED Medication Request Date of Request: May Is this a New Medication? No PLEASE RENEW AND MAIL 3) CLOPIDOGREL BISULFATE 75MG TAB TAKE ONE TABLET BY MOUTH ONCE ACTIVE DAILY Indication: TO PREVENT BLOOD CLOTS 6) GABAPENTIN 300MG CAP TAKE ONE CAPSULE BY MOUTH AT BEDTIME ACTIVE /radhames/ VIVIAN MIKE LPN LPN Signed: 05/19/2024 13:35 Receipt Acknowledged By: 05/19/2024 18:12 /radhames/ JERALD TENORIO MD PHYSICIAN VIVIAN MIKE
== END 2024-05-17 11:07 | disposition home or self-care (01) ==
LOC: HO.10HDL 11:06
PROVIDERS: Visit Provider Urology
DX: Z12.5 Encounter for screening for malignant neoplasm of prostate (principal); C61 Malignant neoplasm of prostate; R97.21 Rising PSA following treatment for malignant neoplasm of prostate; Z19.1 Hormone sensitive malignancy status
CPT/HCPCS: 36415; 84153; 84403

== ENCOUNTER 2024-06-01 14:01 | Outpatient (AMB) | payer MEDICARE, SELFPAY ==
--- OUTSIDE RECORDS SUMMARY | 2024-06-01 14:04 | XMS_ITS | Encounter Summary ---
Author Name [facility] [place] Address [address] [place] [address] Care Team Providers Care Supervisor Park Workers Name Role Phone MARGARITA FLOREZ Primary Care [...] Relationship to Policy Bejarano ALVA [place] OF [place] MEDICARE [facility] Dec 13, 2013 [id number] DAGMAR,ZIA ERT PATIENT [place] SUPPLEMEN [facility] November 06, 2007 [id number] DAGMAR,ZIA ERT PATIENT [place] MED[place] SUPPLEMEN [facility] MEDEX 2 November 06, 2007 [id number] DAGMAR,ZIA ERT PATIENT [place] MED[place] SUPPLEMEN [facility] MEDEX 2 November 06, 2007 [id number] DAGMAR,ZIA ERT PATIENT BCBS OF [facility] Dec 13, 2013 [id number] DAGMAR,ZIA ERT PATIENT [place] SUPPLEMEN [facility] MMHG/ WHITM AN/MX Dec 13, 2008 [id number] [phone] DAGMAR,ZIA ERT PATIENT MEDICARE (WNR) MEDICARE () PART B May 15, 2012 PART B [id number] DAGMAR,ZIA ERT PATIENT MEDICARE (WNR) MEDICARE () PART A May 15, 2002 PART A [id number] DAGMAR,ZIA ERT PATIENT MEDICARE (WNR) MEDICARE () PART B May 15, 2002 PART B [id number] [phone] DAGMAR,ZIA ERT PATIENT MEDICARE (WNR) MEDICARE () PART A May 15, 2002 PART A [id number] [phone] DAGMAR,ZIA ERT PATIENT MEDICARE (WNR) MEDICARE () PART B May 15, 2002 PART B [id number] DAGMAR,ZIA ERT PATIENT MEDICARE (WNR) MEDICARE () PART A May 15, 2002 PART A [id number] DAGMAR,ZIA ERT PATIENT MEDICARE (WNR) MEDICARE () PART B May 15, 2002 PART B [id number] DAGMAR,ZIA ERT PATIENT MEDICARE (WNR) MEDICARE () PART A May 15, 2002 PART A [id number] DAGMAR,ZIA ERT PATIENT Selected Encounter This section includes the information on record at [place] for the Encounter. Date/Time Encounter Type Encounter Description Reason Provider Source Jun 22, 2023 09:00 AM DIABETIC CUSTOM MOLDED SHOE PODIATRY ICD-10-CM E11.51 Type 2 diabetes w diabetic peripheral angiopath w/o gangrene PERRI JOHNSTON Encounter Template Text not used by [place] Assessments - Encounter Diagnoses This section includes the primary and secondary diagnoses documented for the Encounter. Date/Time Primary/Secondary Diagnosis Diagnosis Name Provider Source Jul 01, 2023 10:05 AM PRIMARY Type 2 diabetes w diabetic peripheral angiopath w/o gangrene PERRI JOHNSTON [facility] Plan of Treatment: Future Appointments (+ 6 months) and Future Tests (+/- 45 days) The Plan of Treatment section includes future care activities for the patient [facility] [place] [facility] This section includes future appointments and [...] 05, 2023 01:00 PM AMBULATORY - [place]ICINE [place] [facility] Aug 07, 2023 02:00 PM AMBULATORY - [place] [facility] Sep 07, 2023 03:00 PM AMBULATORY - [place] [facility] Sep 15, 2023 11:00 AM AMBULATORY - MEDICINE [facility] Sep 16, 2023 01:00 PM AMBULATORY - MEDICINE [place] [facility] Sep 18, 2023 10:30 AM AMBULATORY - REHAB MEDICIN [facility] Sep 23, 2023 01:00 PM AMBULATORY - MEDICINE [facility] Sep 23, 2023 01:15 PM AMBULATORY - MEDICINE [facility] Sep 30, 2023 03:00 PM [facility] 30, 2023 03:15 PM AM[facility]ULATORY - MEDICINE [facility] Oct 13, 2023 01:00 PM AMBULATORY - MEDICINE [place] [facility] October 16, 2023 01:00 PM AMBULATORY - MEDICINE [place] [facility] Dec 15, 2023 02:30 PM AMBULATORY - MEDICINE [facility] Lab Results: +/- [...] Range Comment May 27, 2023 01:06 PM [facility] MAGNESIUM Specimen Type: SERUM No comment entered. Ordering Provider: SHASHANK DIAMONDKA M Report Released Date/Time: May 11, 2023 01:25 PM Reporting Lab: [address] [address] Performing Lab: [address] [address] MAGNESIUM 1.3 mg/dL L 1.6-2.6 May 27, 2023 01:06 PM [facility] BASIC METABOLIC PANEL (non-fasting) Spe cimen Type: SERUM No comment entered. Ordering Provider: MARGARITA DIAMOND Report Released Date/Time: May 11, 2023 01:25 PM Reporting Lab: [address] [address] Performing Lab: [address] [address] UREA NITROGEN 32 mg/dL H 7-25 GLUCOSE [...] Jesus fall Apr 28, 2023 03:00 PM [place]-TOBACCO NEVER USED [facility] Tobacco Use History This section includes a history of the smoking, or tobacco-related health factors, that were collected on or before the date of the Encounter. The data comes from the [place] facility where the Encounter took place. Date/Time Smoking Status/Tobacco Use Comment Laney kirkpatrick Apr 09, 2021 10:00 AM [place]-TOBACCO NEVER USED [facility] Mar 13, 2020 12:30 PM [place]-TO[place]ACCO NEVER USED [facility] Feb 02, 2018 02:02 PM VA-TOBACCO NEVER USED [facility] Mar 10, 2017 01:57 PM LIFETIME NON-TOBACCO USER [facility] Feb 11, 2016 02:44 PM LIFETIME NON-TOBACCO USER [facility] May 09, 2009 09:43 AM LIFETIME NON-TOBACCO USER [facility] Encounter Notes: All associated encounter notes This [...] time. A:Type 2 Diabetes Mellitus P: Dispensed [place] V854M size 10.5 medium. They were checked [...] to that visit. /radhames/ PERRI JOHNSTON HEALTH VISUALIZATION DEVELOPER Signed: 06/22/2023 15:10 PERRI JOHNSTON [place]
--- OUTSIDE RECORDS SUMMARY | 2024-06-01 14:04 | XMS_ITS | Encounter Summary ---
Author Name [place] Address [address] [place] [address] Care Team Providers Care Rn Transitional Name Role Phone MARGARITA FLOREZ Primary Care [...] Relationship to Policy Bejarano AL[place] [facility] Dec 13, 2013 [id number] DAGMAR,ZIA ERT PATIENT BCBS [place] MEDICARE SUPPLEMEN [facility] November 06, 2007 [id number] DAGMAR,ZIA ERT PATIENT [place] MED[place] SUPPLEMEN [facility] MEDEX 2 November 06, 2007 [id number] DAGMAR,ZIA ERT PATIENT [place] SUPPLEMEN [facility] MEDEX 2 November 06, 2007 [id number] DAGMAR,ZIA ERT PATIENT BCBS OF [facility] MEDICARE SUPPLEMEN [facility] Dec 13, 2013 [id number] [phone] DAGMAR,ZIA ERT PATIENT [place] MED[place] SUPPLEMEN [facility] MMHG/ WHITM AN/MX Dec 13, 2008 [id number] [phone] DAGMAR,ZIA ERT PATIENT MEDICARE (WNR) MEDICARE () PART B May 15, 2012 PART B [id number] DAGMAR,ZIA ERT PATIENT MEDICARE (WNR) MEDICARE (M) PART A May 15, 2002 PART A [id number] [phone] DAGMAR,ZIA ERT PATIENT MEDICARE (WNR) MEDICARE (M) PART A May 15, 2002 PART A [id number] DAGMAR,ZIA ERT PATIENT MEDICARE (WNR) MEDICARE () PART B May 15, 2002 PART B [id number] DAGMAR,ZIA ERT PATIENT MEDICARE (WNR) MEDICARE () PART A May 15, 2002 PART A [id number] [phone] DAGMAR,ZIA ERT PATIENT MEDICARE (WNR) MEDICARE (M) PART B May 15, 2002 PART B [id number] DAGMAR,ZIA ERT PATIENT MEDICARE (WNR) MEDICARE (M) PART A May 15, 2002 PART A [id number] DAGMAR,ZIA ERT PATIENT MEDICARE (WNR) MEDICARE () PART B May 15, 2002 PART B [id number] [phone] DAGMAR,ZIA ERT PATIENT Selected Encounter This [...] 17, 2023 08:30 AM AMBULATORY - MEDICINE [place] [facility] Jun 22, 2023 09:00 AM AMBULATORY - MEDICINE [place] [facility] Aug 05, 2023 01:00 PM AMBULATORY - MEDICINE [place] [facility] Aug 07, 2023 02:00 PM AMBULATORY - REHAB MEDICIN [place] [place] [facility] Sep 07, 2023 03:00 PM AMBULATORY - REHAB MEDICIN [place] [place] [facility] Sep 15, 2023 11:00 AM AMBULATORY - MEDICINE [facility] Sep 16, 2023 01:00 PM AMBULATORY - MEDICINE [place] [facility] Sep 18, 2023 10:30 AM AMBULATORY - REHAB MEDICIN E [facility] Sep 23, 2023 01:00 PM AMBULATORY - MEDICINE [facility] Sep 23, 2023 01:15 PM AMBULATORY - MEDICINE [facility] Sep 30, 2023 03:00 PM AMBULATORY - MEDICINE [facility] Sep 30, 2023 03:15 PM AMBULATORY - MEDICINE [facility] Oct 13, 2023 01:00 PM AMBULATORY - MEDICINE [place] [facility] October 16, 2023 01:00 PM AMBULATORY - MEDICINE [place] [facility] Lab Results: +/- 30 days of the encounter This section includes the Chemistry and Hematology Lab Results on record with [place] for the patient. Radiology Reports and Pathology Reports are provided separately, in subsequent sections. Lab Results This section contains the Chemistry/Hematology Results that were resulted 30 days before or 30 daysafter the date of the Encounter. Date/Time Source Result Type Result - Unit Interpretation Reference Range Comment May 27, 2023 01:06 PM [facility] MAGNESIUM Specimen Type: SERUM No comment entered. Ordering Provider: MARGARITA DIAMOND Report Released Date/Time: May 11, 2023 01:25 PM Reporting Lab: [place] [address] [address] Performing Lab: [facility] [address] [facility] [address] MAGNESIUM 1.3 mg/dL L 1.6-2.6 May 27, 2023 01:06 PM [facility] BASIC METABOLIC PANEL (non-fasting) Spe cimen Type: SERUM No comment entered. Ordering Provider: MARGARITA DIAMOND Report Released Date/Time: May 11, 2023 01:25 PM Reporting Lab: [facility] [address] [facility] [address] Performing Lab: [facility] [address] [facility] [address] UREA NITROGEN 32 mg/dL H 7-25 GLUCOSE [...] and tobacco- related health factors from the [place] facility where the Encounter took place. Current Smoking Status This section includes the most current smoking, or tobacco-related health factor, from the [place] facility where the Encounter took place. Date/Time Current Smoking Status Comment Jesus fall Apr 15, 2022 01:00 PM [place]-TOBACCO NEVER USED [facility] Encounter Notes: All associated encounter notes [...] Documentation:May Please see attached scanned document in [place] [email or web address]. /radhames/ TARUN GILL CLINICAL DAIRY FARM SUPERVISOR Signed: 06/10/2023 14:51 TARUN GILL
--- OUTSIDE RECORDS SUMMARY | 2024-06-01 14:04 | XMS_ITS | Continuity of Care Document ---
Author Organization [facility] Address [address] [place] [address]- Care Team Providers Care Golf Course Designer Name Role Phone Joe Adams MD, Jerald Pinzon Primary Care Physician [id number] Date(s): 04/29/24 - 05/29/24 [facility] [address] [place] [id number]- Attending Physician: Radha Tran Admitting Physician: Radha Tran Referring Physician: Radha Tran Encounter Type: Triage Allergies, Adverse Reactions, Alerts Substance Criticality Severity [...] Confirmed Active Hypertension Confirmed Active Atherosclerosis of [place] arteries of extremities with intermittent claudication, bilateral legs Confirmed Active Peripheral neuropathy Confirmed Active PVD [...] Code MRI Safety Implantable Status Assigning Authority [id number] Unknown [id number] Unknown 03/12/21 Unknown Unknown Active GS1 Patient Care team information Care Team Personnel Name: Ember Dunham RN Position: [facility] RN Member Role: Primary Care Nurse Name: Chioma Rai Position: [facility] Invest[facility] Member Role: Lifetime Consulting Physician Name: Joe Adams MD, Jerald Pinzon Position: Reference Physician Member Role: PCP Address: [address] [place] [address] Telecom: Care Team Related Persons Name: SONA LEAVITT Name: MINDI LEAVITT Insurance Providers Guarantor name: ORLY LEAVITT Health Plan Information #: 1 Payer: MEDICARE PART B OUTPT Member Number: NA Policy Number: NA Group Number: NA Health Plan Information #: 2 Payer: MEDEX Member Number: NA Policy Number: NA Group Number: NA
--- OUTSIDE RECORDS SUMMARY | 2024-06-01 14:04 | XMS_ITS | Encounter Summary ---
Author Name [facility] [facility] [facility] [place] Address [address] [place] [id number] Care Team Providers Care Safety Coordinator Name Role Phone MARGARITA FLOREZ Primary Care [...] Policy Bejarano ALVA BCBS OF [place] [facility]IC[facility] Dec 13, 2013 [id number] DAGMAR,ZIA ERT PATIENT [place] MED[place]ARE SUPPLEMEN [facility] November 06, 2007 [id number] DAGMAR,ZIA ERT PATIENT [place] SUPPLEMEN [facility] November 06, 2007 [id number] DAGMAR,ZIA ERT PAT[place] SUPP[place]MEN [facility] 2 November 06, 2007 [id number] DAGMAR,ZIA ERT PATIENT BCBS OF [facility] MEDICARE SUPPLEMEN [facility] Dec 13, 2013 [id number] DAGMAR,ZIA ERT PATIENT [place] OF [place] MED[place]ARE SUPPLEMEN [facility]/ [facility] AN/MX Dec 13, 2008 [id number] DAGMAR,ZIA ERT PATIENT MEDICARE (WNR) MEDICARE () PART B May 15, 2012 PART B [id number] DAGMAR,ZIA ERT PATIENT MEDICARE (WNR) MEDICARE () PART A May 15, 2002 PART A [id number] DAGMAR,ZIA ERT PATIENT MEDICARE (WNR) MEDICARE () PART B May 15, 2002 PART B [id number] DAGMAR,ZIA ERT PATIENT MEDICARE (WNR) MEDICARE () PART A May 15, 2002 PART A [id number] DAGMAR,ZIA ERT PATIENT MEDICARE (WNR) MEDICARE () PART A May 15, 2002 PART A [id number] DAGMAR,ZIA ERT PATIENT MEDICARE (WNR) MEDICARE () PART B May 15, 2002 PART B [id number] DAGMAR,ZIA ERT PATIENT MEDICARE (WNR) MEDICARE () PART A May 15, 2002 PART A [id number] DAGMAR,ZIA ERT PATIENT MEDICARE (WNR) MEDICARE () PART B May 15, 2002 PART B [id number] DAGMAR,ZIA ERT PATIENT Selected Encounter This section includes the information on record at [place] for the Encounter. 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 Date/Time Primary/Secondary Diagnosis Diagnosis Name Provider Source Jun 10, 2023 02:41 PM PRIMARY Type 2 diabetes mellitus without complications NIK GILL [facility] Plan of Treatment: Future Appointments (+ 6 months) and Future Tests (+/- 45 days) The Plan of Treatment section includes [facility] [place] [facility] This section includes future appointments [...] 17, 2023 08:30 AM AM[place]ORY - [place] [facility] [place] [facility] Jun 22, 2023 09:00 AM [facility] [place] [facility] [place] [facility] Aug 05, 2023 01:00 PM [facility] [place] [facility] [place] [facility] Aug 07, 2023 02:00 PM AMBULATORY - REHAB MEDICIN [facility] [place] [facility] Sep 07, 2023 03:00 PM AMBULATORY - [facility] [place] [facility] Sep 15, 2023 11:00 [facility] Sep 16, 2023 01:00 PM [facility] [place] [facility] [place] [facility] Sep 18, 2023 10:30 AM AMBULATORY - REHAB MEDICIN E [facility] Sep 23, 2023 01:00 PM [facility] Sep 23, 2023 01:15 PM [facility] Sep 30, 2023 03:00 PM AMBULATORY - MEDICINE [facility] Sep 30, 2023 03:15 PM AMBULATORY - MEDICINE [facility] Oct 13, 2023 01:00 PM [facility] [place] [facility] [place] [facility] October 16, 2023 01:00 PM [facility] [place] [facility] [place] [facility] Lab Results: +/- 30 days [...] Range Comment May 27, 2023 01:06 PM [facility] MAGNESIUM Specimen Type: SERUM No comment entered. Ordering Provider: MARGARITA DIAMOND Report Released Date/Time: May 11, 2023 01:25 PM Reporting Lab: [address] [address] Performing Lab: [address] [address] MAGNESIUM 1.3 mg/dL L 1.6-2.6 May 27, 2023 01:06 PM [facility] BASIC METABOLIC PANEL (non-fasting) Spe cimen Type: SERUM No comment entered. Ordering Provider: MARGARITA DIAMOND Report Released Date/Time: May 11, 2023 01:25 PM Reporting Lab: [address] [address] Performing Lab: [address] [address] UREA NITROGEN 32 mg/dL H 7-25 GLUCOSE [...] Jesus fall Apr 28, 2023 03:00 PM [facility]-TOBACCO NEVER USED [facility] Tobacco Use History This section includes a history of the smoking, or tobacco-related health factors, that were collected on or before the date of the Encounter. The data comes from the [place] facility where the Encounter took place. Date/Time Smoking Status/Tobacco Use Comment F acmelissa Apr 09, 2021 10:00 AM [facility]-TOBACCO NEVER USED [facility] Mar 13, 2020 12:30 PM [facility]-TOBACCO NEVER USED [facility] Feb 02, 2018 02:02 PM [facility]-TOBACCO NEVER USED [facility] Mar 10, 2017 01:57 PM LIFETIME NON-TOBACCO USER [facility] Feb 11, 2016 02:44 PM LIFETIME NON-TOBACCO USER [facility] May 09, 2009 09:43 AM LIFETIME NON-TOBACCO USER [facility] Encounter Notes: All associated encounter notes This [...] Pt has had 6 stents placed. Pt's leveler helper Dr. Flannery in [place]. Dr. Ríos is the camp housekeeper on the outside. Pt lives w/ his Per consult from PCP pt is interested in obtaining sensor from the [place]. Target Goals: A1C: 7%; FB-130 mg/dL; 2HRS PP <180mg/dL. Allergies: COLCHICINE/PROBENECID PERTINENT INFORMATION: Active problems - Computerized Problem List is the source for the followin. Obstructive Sleep Apnea of Adult ([facility] [id number]) 2. Prostate Cancer ([facility] [id number]) 3. Chronic kidney disease stage 3 4. Low Back Pain * 5. Vitamin B 12 Deficiency 6. 2009: Colonoscopy: Polypectomy 7. 11-08-09: PFT: Normal 8. Abdominal aortic aneurysm (SNOMED CT 663216098) 9. Benign essential hypertension (SNOMED CT 4445866) 10. Venous insufficiency of leg (SNOMED CT 478154489) 11. Other dyspnea and respiratory abnormality 12. Coronary arteriosclerosis (SNOMED CT 29039765) 13. CAD: 2005:PTCA 5 TaxusStents: LADx2 RCAx2 Prox RCA x1 14. Gout 15. Hyperglycemia due to type 2 diabetes mellitus (SNOMED CT [id number]) 16. Gastroesophageal Reflux Disorder 17. Hyperlipidemia (SNOMED CT 14522059) 18. 1957: 2 rt inguinal hernia repair/[place] 19. 1969: Lipoma Removal 20. Tonsillectomy and [...] (Wednesdays) - switched over to semagl[place]de at [place] - glipizide - stopped 04/2023 Adherence: Oral [...] is requesting to obtain it from the [place]. Per above note, pt does not wish to transition to basal/bolus regimen due to too high complexity and too many injections. Informed the pt that [place] currently only has vials of novolog mix 70/30 - as the pens are on soaker soda worker's backorder. Reviewed w/ pt and dtr how to use vial and syringe. Pt's dtr works in medical field is very well familiar how to perform injections using vials and syringes. Pt and dtr were able to demonstrate back to the automobile and property underwriter how to use it. Will order it + syringes pt to last picker at the pharmacy window tomorrow. Reviewed [...] Will assess futher. Reviewed the upload w/ Carlin and dtr. f/up end of June. adn [...] of Preventive Care: [facility] 2 [...] [facility] FUTURE APPOINTMENTS: 09/30/2023 15:00 CWM/SO/PODIATRY/RIKCY 10/13/2023 13:00 NHM/OPTOMETRY/DALE DM type is :t2d Length of Visit: 45 minutes PBM PharmD Pharmacotherapy Rem V12: PHARMACIST INTERVENTIONS: TYPE 2 DIABETES MELLITUS Medication Intervention(s) Adjust dose or frequency of current medication due to other reason Plan: ICNRESAE DOSE OF SEMAGLUTIDE Medication monitoring, no dosage change required, continue to monitor and assess /radhames/ TARUN GILL CLINICAL LEAD MEDICAL TECHNOLOGIST Signed: 06/10/2023 14:50 Receipt Acknowledged By: 06/10/2023 15:22 /radhames/ ALLISON TURNER PA-C STAFF PHYSICIAN WELLNESS ASSISTANT for TARUN GARCIA
--- OUTSIDE RECORDS SUMMARY | 2024-06-01 14:04 | XMS_ITS | Continuity of Care Document ---
Author Name [facility] Organization [facility] Care Team Providers Care String Studies Director Name Role Phone [facility] Unavailable Unavailable Problems Combined list of problems from Department of Defense and Veterans Affairs facilities. It does not include entries that were removed or entered in error. Problem Status Onset Date Problem Type Date of Resolution Comments Source Hyperglycemia due to type 2 diabetes mellitus (SNOMED CT 840256952077897) Active 06/15/18 99 Condition [facility] 1957: 2 rt inguinal hernia repair/Toast Active Condition May 09, 2009 Entered By: JAMES PENNY Comment: 1958: Rt Inguinal Hernia Repair/ [facility] 2008 Entered By: JAMES PENNY Comment: 1977: Left Inguinal Hernia Repair [place] 1969: Lipoma Removal Active Condition [place] 2009: Colonoscopy: Polypectomy Active Condition [place] 11-08-09: PFT: Normal Active Condition [place] Abdominal aortic aneurysm (SNOMED CT 958893734) Active Condition November 01, 2009 Entered By: JAMES PENNY Comment: 05-21-09: Distal AAA 3.2 cm [place] Gutierrez's esophagus Active Condition [facility] Benign essential hypertension (SNOMED CT 4092933) Active Condition [place] Bone density below reference range Active Condition [facility] CAD: 2005:PTCA 5 TaxusStents: LADx2 RCAx2 Prox RCA x1 Active Condition May 09, 2009 Entered By: JAMES PENNY Comment: 09-20-06: Cypher Stent CircNov 2008 Entered By: JAMES PENNY Comment: Jacque Greenberg MD: [phone] 2009 Entered By: JAMES PENNY Comment: Dr Flannery [place] Chronic kidney disease stage 3 Active Condition [facility] Coronary arteriosclerosis (SNOMED CT 17380843) Active Condition [place] Diabetes Mellitus Type 2 (SCT 57354156) Active Condition [place] Diabetic nephropathy Active Condition [place] Diarrhea Active Condition [place] [facility] HX-[facility] HE[facility] DIS Active Condition [place] Gastroesophageal reflux disease Active Condition Apr 09, 2021 Entered By: MERY FOWLER Comment: Gutierrez's esophagus, c/w EGD q3y [facility] H/O: gout Active Condition [facility] Hyperlipidemia (SNOMED CT 50268542) Active Condition [place] Hypomagnesemia Active Condition [facility] Insomnia (SCT 895820518) Active Condition [place] Low Back Pain * (ICD-9-CM 724.2) Active Condition [facility] Neuropathy due to type 2 diabetes mellitus Active Condition [place] Obstructive Sleep Apnea of Adult ([facility] 6252812062422) Active Condition Jan 02, 2023 Entered By: MERY FOWLER Comment: 2022 home sleep study : SEVERE DAMIEN [place] Other dyspnea and respiratory abnormality (ICD-9-CM 786.09) Active Condition [facility] Prostate Cancer ([facility] 025935984) Active Condition [facility] Tonsillectomy and Adenoidectomy (under age 12) Active Condition [facility] D Venous insufficiency of leg (SNOMED CT 610891301) Active Condition [place] Vitamin B12 deficiency Active Condition [place] hypertension Inactive Condition 01/22/2015 [facility] Social Hx: ; 2 children Inactive Condition 01/22/2015 Aug 08, 2011 Entered By: JAMES PENNY Comment: Never Smoked ETOH: Rare [facility] Diagnosis: ICD-10-CM E11.9 Type 2 diabetes mellitus without complications Active Diagnosis [facility] Diagnosis: ICD-10-CM L60.0 Ingrowing nail Active Diagnosis [facility] D Diagnosis: ICD-10-CM E11.8 Type 2 diabetes mellitus with unspecified complications Active Diagnosis [place] Diagnosis: ICD-10-CM Z02.89 Encounter for other administrative examinations Active Diagnosis [facility] [place] [facility] Diagnosis: ICD-10-CM Z46.0 Encounter for fit/adjst of spectacles and contact lenses Active Diagnosis [facility] [place] [facility] Diagnosis: ICD-10-CM R05.9 Cough, unspecified Active Diagnosis [facility] Diagnosis: ICD-10-CM J20.9 Acute bronchitis, unspecified Active Diagnosis [place] Diagnosis: ICD-10-CM R06.00 Dyspnea, unspecified Active Diagnosis [place] Diagnosis: ICD-10-CM R26.9 Unspecified abnormalities of gait and mobility Active Diagnosis [facility] Diagnosis: ICD-10-CM Z46.1 Encounter for fitting and adjustment of hearing aid Active Diagnosis [facility] [place] [facility] Diagnosis: ICD-10-CM H90.3 Sensorineural hearing loss, bilateral Active Diagnosis [facility] [place] [facility] Diagnosis: ICD-10-CM G47.33 Obstructive sleep apnea (adult) (pediatric) Active Diagnosis [facility] [place] [facility] Diagnosis: ICD-10-CM E11.51 Type 2 diabetes w diabetic peripheral angiopath w/o gangrene Active Diagnosis [facility] Diagnosis: ICD-10-CM E11.22 Type 2 diabetes mellitus w diabetic chronic kidney disease Active Diagnosis [place] Diagnosis: ICD-10-CM Z23 Encounter for immunization Active Diagnosis [facility] Diagnosis: ICD-10-CM E08.8 Diabetes due to underlying condition w unsp complications Active Diagnosis [place] Diagnosis: ICD-10-CM E08.9 Diabetes due to underlying condition w/o complications Active Diagnosis [facility] Diagnosis: ICD-10-CM Z51.81 Encounter for therapeutic drug level monitoring Active Diagnosis [facility] Medications Combined list of outpatient medications from [...] [facility] (INHAL ATION) 10/23/2023 [id number] Angela PURVIS [address] [facility] ALLOPURINOL 100MG TAB TAKE ONE TABLET BY MOUTH TWICE DAILY FOR GOUT ORAL SUSPEND ED 12/15/2024 [id number] 5 MARGARITA STONE [address] [facility] ALLOPURINOL 100MG TAB TAKE ONE TABLET BY MOUTH TWICE DAILY FOR GOUT ORAL DISCONT INUED 05/17/2024 [id number] 4 SHASHANK STONEKA M 2023 180 [place] ALLOPURINOL 100MG TAB TAKE ONE TABLET BY MOUTH TWICE DAILY FOR GOUT ORAL DISCONT INUED 11/05/2023 [id number] 3 MARGARITA STONE 2022 180 [place] AMLODIPINE BESYLATE 5MG TAB TAKE ONE TABLET BY MOUTH ONCE DAILY FOR BLOOD PRESSURE /HEART, DO NOT TAKE WITH GRAPEFRU IT JUICE ORAL SUSPEND ED 12/15/2024 [id number] 5 MARGARITA STONE 2023 90 [place] AMLODIPINE BESYLATE 5MG TAB TAKE ONE TABLET BY MOUTH ONCE DAILY FOR BLOOD PRESSURE /HEART, DO NOT TAKE WITH GRAPEFRU IT JUICE ORAL DISCONT INUED 05/17/2024 [id number] 4 MARGARITA STONE 2023 90 [place] AMLODIPINE BESYLATE 5MG TAB TAKE ONE TABLET BY MOUTH ONCE DAILY FOR BLOOD PRESSURE /HEART, DO NOT TAKE WITH GRAPEFRU IT JUICE ORAL DISCONT INUED 11/05/2023 [id number] 3 MARGARITA STONE 2022 90 [place] AMOXICILLIN TRIHYDRATE 500MG CAP TAKE ONE CAPSULE BY MOUTH TWICE DAILY ORAL 10/28/2023 [id number] 4 Angela PURVIS 2023 14 [place] ASPIRIN 81MG TAB,EC TAKE ONE TABLET BY MOUTH DAILY ORAL ACTIVE JAMES KIRAN [place] BENZONATATE 100MG CAP TAKE ONE CAPSULE BY MOUTH EVERY 8 HOURS NEEDED FOR COUGH ORAL ACTIVE 10/31/2023 [id number] 4 Angela PURVIS 2023 90 [place] CHOLECALCIF DAVIN 25MCG (1,000UNIT) TAB TAKE ONE TABLET BY MOUTH ONCE DAILY ORAL ACTIVE MARGARITA STONE 2022 [place] CLOPIDOGREL BISULFATE 75MG TAB TAKE ONE TABLET BY MOUTH ONCE DAILY TO PREVENT BLOOD CLOTS ORAL SUSPEND ED 05/20/2025 [id number] 5 MARGARITA STONE 2024 90 [place] CLOPIDOGREL BISULFATE 75MG TAB TAKE ONE TABLET BY MOUTH ONCE DAILY TO PREVENT BLOOD CLOTS ORAL DISCONT INUED 12/15/2024 [id number] 4 MARGARITA STONE 2023 90 [place] CLOPIDOGREL BISULFATE 75MG TAB TAKE ONE TABLET BY MOUTH ONCE DAILY TO PREVENT BLOOD CLOTS ORAL DISCONT INUED 05/17/2024 [id number] 4 MARGARITA STONE 2023 90 [place] CLOPIDOGREL BISULFATE 75MG TAB TAKE ONE TABLET BY MOUTH ONCE DAILY TO PREVENT BLOOD CLOTS ORAL DISCONT INUED 11/05/2023 [id number] 3 MARGARITA STONE 2022 90 [place] CYANOCOBALA MIN 250MCG TAB TAKE ONE TABLET BY MOUTH ONCE DAILY ORAL ACTIVE LENZ,L AUREN T 2018 [place] DEXTROMETHO RPHAN HBR 10MG/GUAIFE NESIN 100MG/5ML (AF & SF) LIQUID TAKE 10 MLS BY MOUTH EVERY 6 HOURS NEEDED FOR COUGH ORAL DISCONT INUED 10/23/2023 [id number] 4 Angela PURVIS 2023 120 [place] DEXTROMETHO RPHAN HBR 10MG/GUAIFE NESIN 100MG/5ML (AF & SF) LIQUID TAKE 10 MLS BY MOUTH EVERY 6 HOURS NEEDED FOR COUGH ORAL 10/31/2023 [id number] 4 Angela PURVIS 2023 120 [place] FENOFIBRATE 145MG TAB TAKE ONE TABLET BY MOUTH AT BEDTIME TO LOWER CHOLESTE ROL ORAL DISCONT INUED 05/17/2024 [id number] 4 MARGARITA STONE 2023 90 [place] FENOFIBRATE 145MG TAB TAKE ONE TABLET BY MOUTH AT BEDTIME TO LOWER CHOLESTE ROL ORAL DISCONT INUED 11/05/2023 [id number] MARGARITA STONE 2022 90 [place] FENOFIBRATE 145MG TAB TAKE ONE TABLET BY MOUTH AT BEDTIME TO LOWER CHOLESTE ROL ORAL 05/28/2024 [id number] 4 LORETO TURNER 2023 90 [place] FERROUS GLUCONATE 324MG TAB TAKE ONE TABLET BY MOUTH EVERY 48 HOURS ORAL ACTIVE MARGARITA STONE 2023 [place] FISH OIL 1000MG (500MG DHA/EPA) CAP,ORAL TAKE 1 CAPSULE BY MOUTH DAILY ORAL ACTIVE JAMES KIRAN 2008 [place] FUROSEMIDE 20MG TAB TAKE ONE TABLET BY MOUTH ONCE DAILY TO REMOVE FLUID/CO NTROL BLOOD PRESSURE ORAL ACTIVE 09/15/2024 [id number] MARGARITA STONE 2023 90 [place] FUROSEMIDE 40MG TAB TAKE ONE TABLET BY MOUTH ONCE DAILY TO REMOVE FLUID/CO NTROL BLOOD PRESSURE ORAL DISCONT INUED (EDIT) 05/17/2024 [id number] 4 MARGARITA STONE 2022 90 [place] FUROSEMIDE 40MG TAB TAKE ONE TABLET BY MOUTH ONCE DAILY TO REMOVE FLUID/CO NTROL BLOOD PRESSURE ORAL DISCONT INUED 11/05/2023 [id number] 3 MARGARITA STONE 2022 90 [place] GABAPENTIN 300MG CAP TAKE ONE CAPSULE BY MOUTH AT BEDTIME ORAL ACTIVE 05/20/2025 [id number] 4 MARGARITA STONE 2023 90 [place] GABAPENTIN 300MG CAP TAKE ONE CAPSULE BY MOUTH AT BEDTIME ORAL DISCONT INUED 11/06/2024 [id number] 4 MARGARITA STONE 2023 90 [place] GABAPENTIN 300MG CAP TAKE ONE CAPSULE BY MOUTH AT BEDTIME ORAL DISCONT INUED 04/22/2024 [id number] 4 MARGARITA STONE 2022 90 [place] GLIPIZIDE 5MG TAB TAKE ONE TABLET BY MOUTH TWICE DAILY ORAL DISCONT INUED 04/28/2024 [id number] MARGARITA STONE 2022 180 [place] INSULIN,ASP ART,HUMAN 70/30 INJ,NOVOLOG INJECT 30 UNITS SUBCUTAN EOUSLY EVERY MORNING AND INJECT 20 UNITS EVERY EVENING FOR DIABETES INJECT BEFORE MEALS SUBCUT ANEOUS ACTIVE 03/24/2025 [id number] 4 Shayne GILL 2023 5 [place] INSULIN,ASP ART,HUMAN 70/30 INJ,NOVOLOG INJECT 24 UNITS SUBCUTAN EOUSLY EVERY MORNING AND INJECT 20 UNITS EVERY EVENING SUBCUT ANEOUS DISCONT INUED BY PROVIDE R 06/10/2024 [id number] Shayne GILL 2022 4 [place] INSULIN,ASP ART,HUMAN 70/30 INJ,NOVOLOG INJECT 16 UNITS SUBCUTAN EOUSLY SUBCUT ANEOUS ACTIVE MARGARITA STONE 2021 [place] LISINOPRIL 5MG TAB TAKE ONE TABLET BY MOUTH ONCE DAILY TO CONTROL BLOOD PRESSURE ORAL DISCONT INUED BY PROVIDE R 05/17/2024 [id number] 4 MARGARITA STONE 2023 90 [place] LISINOPRIL 5MG TAB TAKE ONE TABLET BY MOUTH ONCE DAILY TO CONTROL BLOOD PRESSURE ORAL DISCONT INUED 11/05/2023 [id number] 3 MARGARITA STONE 2022 90 [place] MAGNESIUM OXIDE 420MG TAB TAKE ONE TABLET BY MOUTH TWICE DAILY FOR MAGNESIU M SUPPLEME NTATION ORAL ACTIVE 12/15/2024 [id number] 4 SHASHANK STONEKA M 2023 180 [place] MAGNESIUM OXIDE 420MG TAB TAKE ONE TABLET BY MOUTH TWICE DAILY FOR MAGNESIU M SUPPLEME NTATION ORAL DISCONT INUED 04/23/2024 [id number] MARGARITA STONE 2022 180 [place] METFORMIN HCL 500MG 24HR TAB,SA TAKE TWO TABLETS BY MOUTH ONCE DAILY ORAL ACTIVE 12/15/2024 [id number] 4 MARGARITA STONE 2023 60 [place] METFORMIN HCL 500MG 24HR TAB,SA TAKE TWO TABLETS BY MOUTH ONCE DAILY ORAL DISCONT INUED 05/17/2024 [id number] 4 MARGARITA STONE 2023 180 [place] METFORMIN HCL 500MG 24HR TAB,SA TAKE TWO TABLETS BY MOUTH ONCE DAILY ORAL DISCONT INUED 11/05/2023 [id number] 3 MARGARITA STONE 2022 180 [place] METOPROLOL SUCCINATE 100MG TAB,SA TAKE ONE TABLET BY MOUTH ONCE DAILY FOR BLOOD PRESSURE /HEART ORAL DISCONT INUED 11/05/2023 [id number] 3 MARGARITA STONE 2022 90 [place] METOPROLOL SUCCINATE 100MG TAB,SA TAKE ONE TABLET BY MOUTH ONCE DAILY FOR BLOOD PRESSURE /HEART ORAL 05/17/2024 [id number] 4 MARGARITA STONE 2023 90 [place] NIACIN (SLO-NIACIN ) 750MG TAB,SA TAKE ONE TABLET BY MOUTH TWICE DAILY ORAL 05/21/2024 [id number] 3 MARGARITA STONE 2022 200 [place] OMEPRAZOLE 20MG CAP,EC TAKE ONE CAPSULE BY MOUTH TWICE DAILY ORAL ACTIVE 12/15/2024 [id number] 4 SHASHANK STONEKA M 2023 180 [place] OMEPRAZOLE 20MG CAP,EC TAKE ONE CAPSULE BY MOUTH TWICE DAILY ORAL DISCONT INUED 05/17/2024 [id number] MARGARITA STONE 2022 180 [place] OMEPRAZOLE 20MG CAP,EC TAKE ONE CAPSULE BY MOUTH TWICE DAILY ORAL DISCONT INUED 11/05/2023 [id number] 3 MARGARITA STONE 2022 180 [place] PREDNISONE 50MG TAB TAKE ONE TABLET BY MOUTH ONCE DAILY FOR BRONCHIT IS ORAL 10/23/2023 [id number] 4 Angela PURVIS 2023 5 [place] SEMAGLUTIDE 0.25MG/0.37 5ML INJ,SOLN,PE N,3ML INJECT 0.5MG SUBCUTAN EOUSLY ONCE A WEEK FOR TYPE 2 DIABETES MELLITUS SUBCUT ANEOUS DISCONT INUED 03/18/2024 [id number] Shayne GILL 2022 1 [place] SEMAGLUTIDE 1MG/0.75ML INJ,SOLN,PE N,3ML INJECT 1MG SUBCUTAN EOUSLY ONCE A WEEK FOR TYPE 2 DIABETES MELLITUS SUBCUT ANEOUS ACTIVE 03/24/2025 [id number] 4 Shayne GILL 2023 1 [place] SEMAGLUTIDE 1MG/0.75ML INJ,SOLN,PE N,3ML INJECT 1MG SUBCUTAN EOUSLY ONCE A WEEK FOR TYPE 2 DIABETES MELLITUS SUBCUT ANEOUS DISCONT INUED BY ADONAY R 11/05/2024 [id number] 4 Shayne GILL 2023 1 [place] SEMAGLUTIDE 1MG/0.75ML INJ,SOLN,PE N,3ML INJECT 1MG SUBCUTAN EOUSLY ONCE A WEEK FOR TYPE 2 DIABETES MELLITUS SUBCUT ANEOUS DISCONT INUED 06/10/2024 [id number] Shayne GILL 2022 1 [place] SIMVASTATIN 80MG TAB TAKE ONE-HALF TABLET BY MOUTH ONCE DAILY FOR CHOLESTE ROL ORAL SUSPEND ED 12/15/2024 [id number] MARGARITA STONE 2023 45 [place] SIMVASTATIN 80MG TAB TAKE ONE-HALF TABLET BY MOUTH ONCE DAILY FOR CHOLESTE ROL ORAL DISCONT INUED 05/17/2024 [id number] 4 MARGARITA STONE 2022 45 [place] Allergies, Adverse Reactions, Alerts Combined list of allergies from Department of Defense and Veterans Affairs facilities. It does not include entries that were removed or entered in error. Substance Category Reaction Severity Reaction type Status Date Reported Comments Source COLCHICINE /PROBENECI D Propensity to adverse reactions to drug (finding) Anaphylaxis active 9 [facility] Immunizations Combined list of available immunizations from the Department of Defense and Veterans Affairs facilities. Immunization Series Date Given Administered By Site Reaction Lot Number CVX Code Drug Box Strapper Status Comments Source INFLUENZA, HIGH-DOSE, QUADRIVALENT 2022 ANANDA HANNON LEFT DELTO ID [id number] A [address] [facility] INFLUENZA VACCINE, QUADRIVALENT, ADJUVANTED 2021 205 complet ed [facility] INFLU[facility] VACCINE, QUADRIVALENT, ADJUVANTED [address] [facility] TDAP [address] [facility] ZOSTER RECOMBINANT 2 [address] [facility] COVID-19 (MODERNA), MRNA, LNP-S, PF, 100 MCG/0.5 ML DOSE 2 2020 207 complet ed MOD; [id number]; [facility] COVID-19 (MODERNA), MRNA, LNP-S, PF, 100 MCG/0.5 ML DOSE 1 2020 207 complet ed MOD; [id number]; 1 [place] ZOSTER RECOMBINANT [address] [facility] INFLUENZA, INJECTABLE, QUADRIVALENT, PRESERVATIVE FREE [...] IELD ZOSTER (HISTORICAL) 2012 121 complet ed [facility] [place] [facility] [...] Sep 15, 2023 01:00 PM Reporting Lab: [facility] [place] [facility] [address] [facility] [address] Performing Lab: [facility] [place] [facility] [address] [facility] [address] [place] VITAMIN D (25-OH) 25-HYDROXYV ITAMIN D3 [MASS/VOLUM E] IN SERUM OR PLASMA 28 ng/mL 20 - 50 11/24 Specimen Type: SERUM No comment entered. Ordering Provider: MERY FOWLER Report Released Date/Time: Sep 15, 2023 12:57 PM Reporting Lab: [facility] [place] [place] [address] [address] Performing Lab: [facility] [address] [place] HEMOGLOBI N A1C PANEL HEMOGLOBIN [...] Sep 15, 2023 12:57 PM Reporting Lab: [facility] [address] Performing Lab: [facility] [address] [place] FERRITIN FERRITIN [MASS/VOLUM E] IN SERUM OR PLASMA 38 ng/mL 20 - 300 11/24 Specimen Type: SERUM No comment entered. Ordering Provider: MERY FOWLER Report Released Date/Time: Sep 15, 2023 12:57 PM Reporting Lab: [facility] [address] Performing Lab: [facility] [address] [place] LIVER FUNCTION PROTEIN [MASS/VOLUM E] IN SERUM OR PLASMA 6.8 g/dL 6.0 - 8.3 11/24 Specimen Type: SERUM No comment entered. Ordering Provider: MERY FOWLER Report Released Date/Time: Sep 15, 2023 12:57 PM Reporting Lab: [facility] [address] [facility] [address] Performing Lab: [facility] [address] [address] [place] LIVER FUNCTION ALBUMIN [MASS/VOLUM E] IN SERUM OR PLASMA 3.6 g/dL 3.5 - 5.0 11/24 Specimen Type: SERUM No comment entered. Ordering Provider: MERY FOWLER Report Released Date/Time: Sep 15, 2023 12:57 PM Reporting Lab: [facility] [address] [address] Performing Lab: [facility] [address] [address] [place] LIVER FUNCTION ALKALINE PHOSPHATASE [ENZYMATIC ACTIVITY/VO LUME] IN SERUM OR PLASMA 38 U/L 40 - 150 11/24 L Specimen Type: SERUM No comment entered. Ordering Provider: MERY FOWLER Report Released Date/Time: Sep 15, 2023 12:57 PM Reporting Lab: [facility] [address] [address] Performing Lab: [facility]ONN [facility] [address] [facility] [address] [place] ASPARTATE AMINOTRANSF ERASE [ENZYMATIC ACTIVITY/VO LUME] IN SERUM OR PLASMA 21 U/L 5 - 34 11/24 Specimen Type: SERUM No comment entered. Ordering Provider: MERY FOWLER Report Released Date/Time: Sep 15, 2023 12:57 PM Reporting Lab: [facility] [address] [address] Performing Lab: [facility] [address] [address] [place] LIVER FUNCTION ALANINE AMINOTRANSF ERASE [ENZYMATIC ACTIVITY/VO LUME] IN SERUM OR PLASMA 21 U/L 11/24 Specimen Type: SERUM No comment entered. Ordering Provider: MERY FOWLER Report Released Date/Time: Sep 15, 2023 12:57 PM Reporting Lab: [facility] [address] [address] Performing Lab: [address] [address] [place] LIVER FUNCTION BILIRUBIN.T OTAL [MASS/VOLUM E] IN SERUM OR PLASMA 0.4 mg/dL 0.2 - 1.2 11/24 Specimen Type: SERUM No comment entered. Ordering Provider: MERY FOWLER Report Released Date/Time: Sep 15, 2023 12:57 PM Reporting Lab: [facility] [address] [address] Performing Lab: [address] [address] [place] LIPID PANEL, NON FASTING CHOLESTEROL [MASS/VOLUM E] IN SERUM OR PLASMA 120 mg/dL 11/24 Specimen Type: SERUM No comment entered. Ordering Provider: MERY FOWLER Report Released Date/Time: Sep 15, 2023 12:57 PM Reporting Lab: [facility] [address] [address] Performing Lab: [facility] [address] [address] [place] LIPID PANEL, NON FASTING TRIGLYCERID E [MASS/VOLUM E] IN SERUM OR PLASMA 191 mg/dL 0 - 150 11/24 H Specimen Type: SERUM No comment entered. Ordering Provider: MERY FOWLER Report Released Date/Time: Sep 15, 2023 12:57 PM Reporting Lab: [address] [place] [address] Performing Lab: [facility] [address] [facility] [address] [place] LIPID PANEL, NON FASTING CHOLESTEROL IN LDL [MASS/VOLUM E] IN SERUM OR PLASMA BY CALCULATION 46 mg/dL 0 - 129 11/24 Specimen Type: SERUM No comment entered. Ordering Provider: MERY FOWLER Report Released Date/Time: Sep 15, 2023 12:57 PM Reporting Lab: [facility] [address] [address] Performing Lab: [address] [address] [place] LIPID PANEL, NON FASTING CHOLESTEROL .TOTAL/CHOL ESTEROL IN HDL [MASS RATIO] IN SERUM OR PLASMA 3.3 11/24 Specimen Type: SERUM No comment entered. Ordering Provider: MERY FOWLER Report Released Date/Time: Sep 15, 2023 12:57 PM Reporting Lab: [address] [address] Performing Lab: [facility] [address] [address] [place] LIPID PANEL, NON FASTING CHOLESTEROL IN HDL [MASS/VOLUM E] IN SERUM OR PLASMA 36 mg/dL 40 - 60 11/24 L Specimen Type: SERUM No comment entered. Ordering Provider: MERY FOWLER Report Released Date/Time: Sep 15, 2023 12:57 PM Reporting Lab: [facility] [address] [address] Performing Lab: [address] [address] [place] MAGNESIUM MAGNESIUM [MASS/VOLUM E] IN SERUM OR PLASMA 1.6 mg/dL 1.6 - 2.6 11/24 Specimen Type: SERUM No comment entered. Ordering Provider: MERY FOWLER Report Released Date/Time: Sep 15, 2023 12:57 PM Reporting Lab: [facility]ITALRMOODY HOSPITALTRN [facility] [address] [facility] [address] Performing Lab: [facility]ITALRNOL[facility] ANNISTONN [facility]US[facility] [address] [facility] [address] [place] IRON & TIBC PANEL IRON BINDING CAPACITY [MASS/VOLUM E] IN SERUM OR PLASMA 430 ug/dL 204 - 475 11/24 Specimen Type: SERUM No comment entered. Ordering Provider: MERY FOWLER Report Released Date/Time: Sep 15, 2023 12:57 PM Reporting Lab: [facility] [address] [facility] [address] Performing Lab: [facility] [address] [address] [place] IRON & TIBC PANEL IRON [MASS/VOLUM E] IN SERUM OR PLASMA 78 ug/dL 40 - 160 11/24 Specimen Type: SERUM No comment entered. Ordering Provider: MERY FOWLER Report Released Date/Time: Sep 15, 2023 12:57 PM Reporting Lab: [facility]N [facility]ITALUSETS [address] [address] Performing Lab: [facility]N [facility] [address] [address] [place] IRON & TIBC PANEL IRON/IRON BINDING CAPACITY.TO SHALOM [MASS RATIO] IN SERUM OR PLASMA 18.1 20.0 - 50.0 11/24 L Specimen Type: SERUM No comment entered. Ordering Provider: MERY FOWLER Report Released Date/Time: Sep 15, 2023 12:57 PM Reporting Lab: [facility] [address] [facility] [address] Performing Lab: [facility] [address] [address] [place] MICROALBU MIN CREATININ E RATIO PANEL MICROALBUMI N/CREATININ E [MASS RATIO] IN URINE cancmg /g 0 - 29.9 11/24 Specimen Type: URINE No comment entered. Ordering Provider: MERY FOWLER Report Released Date/Time: Sep 15, 2023 12:57 PM Reporting Lab: [facility] [address] [facility] [address] Performing Lab: [facility] [address] [address] [place] MICROALBU MIN CREATININ E RATIO PANEL MICROALBUMI N [MASS/VOLUM E] IN URINE < 0.5mg/ dL 11/24 Specimen Type: URINE No comment entered. Ordering Provider: MERY FOWLER Report Released Date/Time: Sep 15, 2023 12:57 PM Reporting Lab: [facility] [address] [address] Performing Lab: [facility] [address] [address] [place] MICROALBU MIN CREATININ E RATIO PANEL CREATININE [MASS/VOLUM E] IN URINE 57.10 mg/dL 11/24 Specimen Type: URINE No comment entered. Ordering Provider: MERY FOWLER Report Released Date/Time: Sep 15, 2023 12:57 PM Reporting Lab: [facility] [address] [address] Performing Lab: [facility] [address] [address] [place] VITAMIN B12 COBALAMIN (VITAMIN B12) [MASS/VOLUM E] IN SERUM OR PLASMA 884 pg/mL 200 - 900 11/24 Specimen Type: SERUM No comment entered. Ordering Provider: MERY FOWLER Report Released Date/Time: Sep 15, 2023 12:57 PM Reporting Lab: [facility] [address] [address] Performing Lab: [address] [address] [place] Vital Signs Combined list of inpatient and outpatient Vital Signs from Department of Defense and Veterans Affairs, ranging from 12 months to all on record, depending upon the facility. Vital Sign Value Date Comments Source WEIGHT 212.5 04/27/2024 10:31:53 [facility] BMI 31kg/m2 04/27/2024 10:31:53 [facility] SYSTOLIC BLOOD PRESSURE 129 12/15/19 24 15:11:37 [facility] DIASTOLIC BLOOD PRESSURE 80 024 15:11:37 [facility] PULSE OXIMETRY 96 12/15/2023 15:11:37 [facility] WEIGHT 219.8 12/15/2023 15:11:37 [facility] BMI 32kg/m2 12/15/2023 15:11:37 [facility] TEMPERATURE 97.9 12/15/2023 15:11:37 [facility] PULSE 86 12/15/2023 15:11:37 [facility] SYSTOLIC BLOOD PRESSURE 138 09/30/19 24 15:32:26 [facility] DIASTOLIC BLOOD PRESSURE 74 024 15:32:26 [facility] PULSE OXIMETRY 96 09/30/2023 15:32:26 [facility] PAIN 0 09/30/2023 15:32:26 [facility] TEMPERATURE 97.3 09/30/2023 15:32:26 [facility] PULSE 93 09/30/2023 15:32:26 [facility] RESPIRATION 18 09/30/2023 15:32:26 [facility] SYSTOLIC BLOOD PRESSURE 109 09/15/19 24 11:21:36 [facility] DIASTOLIC BLOOD PRESSURE 57 024 11:21:36 [facility] PULSE OXIMETRY 98 09/15/2023 11:21:36 [facility] WEIGHT 216.4 09/15/2023 11:21:36 [facility] BMI 31kg/m2 09/15/2023 11:21:36 [facility] TEMPERATURE 98.1 09/15/2023 11:21:36 [facility] PULSE 88 09/15/2023 11:21:36 [facility] WEIGHT 220 08/05/2023 13:45:23 [facility] BMI 32kg/m2 08/05/2023 13:45:23 [facility] Encounters Combined list of: 1) Encounters from Department of Veterans Affairs facilities going back up to thelast 18 months. 2) Encounters from the Department of Defense facilities going back up to 280 months. Location Location Details Encounter Type Encounter Number Reason For Visit Attending Provider ADM Date DC Date Status Disposition Source [facility] REPAIR & ADJUST SPECTACLES [id number] Diagnos is: ICD-10- CM Z46.0 Encount er for fit/adj st of spectac les and contact lenses< br/> SHRUTI OROZCO 12/03 [facility] SLEEP STUDY UNATT&RESP EFFT [id number] Diagnos is: ICD-10- CM G47.33 Obstruc tive sleep apnea (adult) ([facility] issac)
HORTENSIA MENDEZ ISSAC 12/11 [facility] Outpatient Encounter [id number] 12/17 [facility] Outpatient Encounter [id number] 12/18 [facility] [place] [place] [facility] SLEEP STUDY UNATT&RESP EFFT [id number] Diagnos is: ICD-10- CM G47.33 Obstruc tive sleep apnea (adult) (pediat issac)
FLORENCE-ERIC FITCH 12/22 [facility] [place] MTMS BY PHARM ADDL 15 MIN [id number] Diagnos is: ICD-10- CM E11.9 Type 2 diabete s mellitu s without complic ations< br/> DACIA GILL 12/24 [place] QNHP OL DIG ASSMT&MGMT 5-10 [id number] Diagnos is: ICD-10- CM Z51.81 Encount er for therape utic drug level monitor ing<br/ > NIKOLE,WILL NIA GARCIA 12/25 [place] [facility] Outpatient Encounter [id number] 01/05 [facility] [place] MTMS BY PHARM EST 15 MIN [id number] Diagnos is: ICD-10- CM E08.9 Diabete s due to underly ing conditi on w/o complic ations< br/> DACIA GILL 01/07 [place] [facility] EXTERNAL [employer] [place] [id number] Diagnos is: ICD-10- CM E08.9 Diabete s due to underly ing conditi on w/o complic ations< br/> DACIA GILL 01/08 [facility] Outpatient Encounter [id number] 01/08 [facility] [place] QNHP OL DIG ASSMT&MGMT 5-10 [id number] Diagnos is: ICD-10- CM E11.8 Type 2 diabete s mellitu s with unspeci fied complic ations< br/> NIKOLE,WILL NIA GARCIA 01/08 [place] [facility] Outpatient Encounter [id number] 01/22 [facility] [place] MTMS BY PHARM ADDL 15 MIN [id number] Diagnos is: ICD-10- CM E08.9 Diabete s due to underly ing conditi on w/o complic ations< br/> DACIA GILL 01/28 [place] [facility] Outpatient Encounter [id number] 02/02 [facility] En[facility] [id number] 02/04 [facility] [place] MTMS BY PHARM ADDL 15 MIN [id number] Diagnos is: ICD-10- CM E11.8 Type 2 diabete s mellitu s with unspeci fied complic ations< br/> DACIA GILL A 02/18 [place] [facility] Out[facility] Encounter [id number] 02/19 [facility] Encounter [id number] 03/11 [facility] [place] MTMS BY PHARM ADDL 15 MIN [id number] Diagnos is: ICD-10- CM E08.8 Diabete s due to underly ing conditi on w unsp complic ations< br/> DACIA GILL A 03/18 [place] [facility] Out[facility] Encounter [id number] 03/18 [facility] [place] QNHP OL DIG ASSMT&MGMT 5-10 [id number] [id number] Diagnos is: ICD-10- CM E11.8 Type 2 diabete s mellitu s with unspeci fied complic ations< br/> AMBREEN,ERUM IE 03/18 [place] [facility] Out[facility] Encounter [id number] 03/28 [facility] Encounter [id number] 04/15 [facility] [place] OFF/OP EST MAY X REQ PHY/QHP [id number] Diagnos is: ICD-10- CM Z23 Encount er for immuniz ation<b r/> RIDDHIBOBBI KAT [place] 04/22 [place] OFFICE/[place] [id number] [id number] Diagnos is: ICD-10- CM G47.33 Obstruc tive sleep apnea (adult) (pediat issac)
SERENITY DUFF P 04/22 [place] [facility] Outpatient Encounter [id number] 04/22 [facility] Outpatient Encounter [id number] 04/22 [facility] Outpatient Encounter [id number] WESLY CALLEJAS 04/23 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
HOOD MIKE 04/28 [place] OFFICE O/P EST LOW 20-29 MIN [id number] [id number] Diagnos is: ICD-10- CM L60.0 Ingrowi ng nail
ÁNGEL GARCÍA F 04/29 [place] [facility] COLLJ & INTERPJ DATA EA 30 D [id number] [id number] Diagnos is: ICD-10- CM G47.33 Obstruc tive sleep apnea (adult) (pediat issac)
SERENITY CORTES Grecia Gill 05/05 [facility] [place] MTMS BY PHARM ADDL 15 MIN [id number] [id number] Diagnos is: ICD-10- CM E11.8 Type 2 diabete s mellitu s with unspeci fied complic ations< br/> DACIA GILL ARMANI A 05/08 [place] [facility] Out[facility] Encounter [id number] 05/08 [facility] Encounter [id number] 05/11 [facility] Encounter [id number] 05/20 [facility] Encounter [id number] 05/20 [facility] Encounter [id number] 05/28 [facility] TUBING WITH HEATING ELEMENT [id number] Diagnos is: ICD-10- CM G47.33 Obstruc tive sleep apnea (adult) (pediat issac)
ALISA FIELDS 06/03 [facility] [place] MTMS BY PHARM ADDL 15 MIN [id number] Diagnos is: ICD-10- CM E11.9 Type 2 diabete s mellitu s without complic ations< br/> GILLDACIA DIANE A 06/10 [place] [facility] Out[facility] Encounter [id number] 06/10 [facility] Encounter [id number] WESLY CALLEJAS 06/12 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
CHUCK JOHNSTON L 06/22 [place] PRO PHONE CALL 5-10 MIN [id number] [id number] Diagnos is: ICD-10- CM G47.33 Obstruc tive sleep apnea (adult) (pediat issac)
ALISA FIELDS A 06/26 [place] [facility] POS AIRWAY PRESSURE CPAP [id number] Diagnos is: ICD-10- CM G47.33 Obstruc tive sleep apnea (adult) (pediat issac)
ALISA FIELDS 07/13 [facility] En[facility] [id number] 07/14 [facility] ADDL 15 MIN [id number] Diagnos is: ICD-10- CM E11.9 Type 2 diabete s mellitu s without complic ations< br/> GILLDACIA DIANE A 08/05 [place] [facility] Out[facility] Encounter [id number] 08/05 [facility] HEARING AID EXAM BOTH EARS [id number] Diagnos is: ICD-10- CM H90.3 Sensori neural hearing loss, bilater al
Solange LI CAIO E 08/07 [facility] En[facility] [id number] 08/26 [facility] Out[facility] Encounter [id number] 08/30 [facility] HEARING SERVICE [id number] Diagnos is: ICD-10- CM Z46.1 Encount er for fitting and adjustm ent of hearing aid<br/ > Solange LI 09/06 [facility] Out[facility] Encounter [id number] 09/09 [facility] Out[facility] Encounter [id number] 09/14 [facility] [place] OFFICE O/P EST MOD 30 MIN [id number] Diagnos is: ICD-10- CM E11.9 Type 2 diabete s mellitu s without complic ations< br/> WESLY CALLEJAS 09/14 [facility] ADDL 15 MIN [id number] Diagnos is: ICD-10- CM E11.8 Type 2 diabete s mellitu s with unspeci fied complic ations< br/> DACIA GILL 09/15 [place] [facility] Outpatient Encounter [id number] 09/16 [facility] [place] GAIT TRAINING THERAPY [id number] [id number] Diagnos is: ICD-10- CM R26.9 Unspeci fied abnorma lities of gait and mobilit y
LEE AREVALO 09/17 [place] [facility] Outpatient Encounter [id number] WESLY CALLEJAS 09/17 [facility] Outpatient Encounter [id number] 09/22 [facility] [place] OFF/OP EST MAY X REQ PHY/QHP [id number] [id number] Diagnos is: ICD-10- CM R06.00 Dyspnea , unspeci fied
RORO HEAD K 09/22 [place] OFF[place] O/P EST LOW 20 MIN [id number] [id number] Diagnos is: ICD-10- CM J20.9 Acute bronchi tis, unspeci fied
BRADFORD PURVIS 09/22 [place] OFF[place] O/P EST LOW 20 MIN [id number] [id number] Diagnos is: ICD-10- CM L60.0 Ingrowi ng nail
ÁNGEL GARCÍA F 09/29 [place] [facility] Outpatient Encounter [id number] 09/29 [facility] [place] OFF/OP EST MAY X REQ PHY/QHP [id number] [id number] Diagnos is: ICD-10- CM R05.9 Cough, unspeci fied
ADILENE,ER IC K 09/29 [place] [facility] COMPRE OPH EXAM EST PT 1/> [id number] [id number] Diagnos is: ICD-10- CM E11.9 Type 2 diabete s mellitu s without complic ations< br/> BEHT HUNTER WEN 10/12 [facility] FIT SPECTACLES MONOFOCAL [id number] Diagnos is: ICD-10- CM Z46.0 Encount er for fit/adj st of spectac les and contact lenses< br/> BETH HUNTER WEN 10/12 [facility] Out[facility] Encounter [id number] Diagnos is: ICD-10- CM Z02.89 Encount er for other adminis trative examina tions<b r/> SEAN SHEEHAN 10/15 [facility] Outpatient Encounter [id number] 10/19 [place] [facility] Out[facility] Encounter [id number] 11/03 [facility] Out[facility] Encounter [id number] 11/03 [facility] Out[facility] Encounter [id number] 11/17 [facility] Encounter [id number] 12/14 [facility] [place] O/P EST MOD 30 MIN [id number] [id number] Diagnos is: ICD-10- CM E11.9 Type 2 diabete s mellitu s without complic ations< br/> GILA MUNOZWESLY 12/14 [place] MTMS BY PHARM ADDL 15 MIN [id number] [id number] Diagnos is: ICD-10- CM E11.8 Type 2 diabete s mellitu s with unspeci fied complic ations< br/> DACIA GILL A 12/29 [place] OFFICE O/P EST LOW 20 MIN [id number] [id number] Diagnos is: ICD-10- CM L60.0 Ingrowi ng nail
ÁNGEL GARCÍA F 03/02 [place] MTMS BY PHARM ADDL 15 MIN [id number] Diagnos is: ICD-10- CM E11.9 Type 2 diabete s mellitu s without complic ations< br/> DACIA GILL A 04/27 [place] [facility] Outpatient Encounter [id number] 04/28 [facility] [place] Outpatient Encounter [id number] 05/18 [facility] [place] Outpatient Encounter [id number] 05/19 [facility] Social History Combined list of available smoking, tobacco, and other social history from Department of Defense and Veterans Affairs facilities. Social History Type Response Date Comment Sourc e Tobacco smoking status [facility] NEVER USED 04/28/2023 [place] History of tobacco use [facility] NEVER USED 04/[facility]2022 [facility] [place] History of tobacco use [facility]TO[facility]CO NEVER USED 04/09/2021 [facility]2018 [facility] D History of tobacco use LIFETIME NON-TOBACCO USER 03/10/2017 [facility] History of tobacco use LIFETIME NON-TOBACCO USER 02/11/2016 [facility] History of tobacco use LIFETIME NON-TOBACCO USER 05/09/2009 [facility] Plan of Care List of future care activities from [facility] facilities. Additional future care activities may be listed in the Assessment and Plan section. Date/Time Care Activity Care Activity Detail Facili ty 07/12/2024 AMBULATORY - MEDICINE AMBULATORY - MEDICI NE [facility] 07/20/2024 AMBULATORY - MEDICINE AMBULATORY - MEDICI [facility] 08/03/2024 AMBULATORY - MEDICINE AM[facility]ULATORY [place] [facility] [place] [facility] 11/01/2024 AMBULATORY - MEDICINE AM[facility]ULATORY - [place]ICI [place] [facility] [place] [facility] 07/06/2024 Laboratory - Supervisor [place] Order LIPID PANEL FASTING BLOOD (SST-SERUM) [facility] 07/06/2024 Laboratory - Supervisor [place] Order HEMOGLOBIN A1C PANEL BLOOD (LAV-BLOOD) [facility] 07/06/2024 Laboratory - Supervisor [place] Order LIVER FUNCTION BLOOD (SST-SERUM) [facility] 07/06/2024 Laboratory - Supervisor [place] Order BASIC METABOLIC PANEL (fasting) BLOOD (SST-SERUM) [facility] 07/06/2024 Laboratory - Supervisor [place] Order CBC AND DIFF (AUTO) BLOOD (LAV-BLOOD) [facility] 07/06/2024 Laboratory - Supervisor [place] Order TSH BLOOD (SST-SERUM) [facility] 07/06/2024 Laboratory - Supervisor [place] Order MICROALBUMIN CREATININE RATIO PANEL URINE (RANDOM) [facility] 07/06/2024 Laboratory - Supervisor [place] Order MAGNESIUM BLOOD (SST-SERUM) [facility] 07/06/2024 Laboratory - Supervisor [place] Order VITAMIN B12 BLOOD (SST-SERUM) [facility] 07/06/2024 Laboratory - Supervisor [place] Order IRON and TIBC PANEL BLOOD (SST-SERUM) [facility] 07/06/2024 Laboratory - Supervisor [place] Order FERRITIN BLOOD (SST-SERUM) [facility]
--- OUTSIDE RECORDS SUMMARY | 2024-06-01 14:04 | XMS_ITS | Encounter Summary ---
Author Name [facility] [place] Organization [facility] [place] Address [address] [place] [id number] Care Team Providers Care Advanced Developer Name Role Phone MARGARITA FLOREZ Primary Care [...] Policy Bejarano ALVA [place] [facility] Dec 13, 2013 [id number] DAGMAR,ZIA ERT PATIENT [place] MEDICARE SUPPLEMEN [facility] November 06, 2007 [id number] DAGMAR,ZIA ERT PATIENT [place] MED[place] SUPPLEMEN [facility] MEDEX 2 November 06, 2007 [id number] [phone] DAGMAR,ZIA ERT PATIENT [place] SUPPLEMEN [facility]EX 2 November 06, 2007 [id number] [phone] DAGMAR,ZIA ERT PATIENT BCBS OF [facility] MEDICARE SUPPLEMEN [facility] Dec 13, 2013 [id number] DAGMAR,ZIA ERT PATIENT [place] SUPPLEMEN [place] MMHG/ WHITM AN/MX Dec 13, 2008 [id number] [phone] DAGMAR,ZIA ERT PATIENT MEDICARE (WNR) MEDICARE () PART B May 15, 2012 PART B [id number] [id number] DAGMAR,ZIA ERT PATIENT MEDICARE (WNR) MEDICARE () PART A May 15, 2002 PART A [id number] [phone] DAGMAR,ZIA ERT PATIENT MEDICARE (WNR) MEDICARE () PART A May 15, 2002 PART A [id number] DAGMAR,ZIA ERT PATIENT MEDICARE (WNR) MEDICARE () PART B May 15, 2002 PART B [id number] DAGMAR,ZIA ERT PATIENT MEDICARE (WNR) MEDICARE () PART A May 15, 2002 PART A [id number] DAGMAR,ZIA ERT PATIENT MEDICARE (WNR) MEDICARE () PART B May 15, 2002 PART B [id number] DAGMAR,ZIA ERT PATIENT MEDICARE (WNR) MEDICARE () PART A May 15, 2002 PART A [id number] DAGMAR,ZIA ERT PATIENT MEDICARE (WNR) MEDICARE () PART B May 15, 2002 PART B [id number] [phone] DAGMAR,ZIA ERT PATIENT Selected Encounter This [...] Obstructive sleep apnea (adult) (pediatric) RANJITH FIELDS [place] [facility] [facility] [place] [facility] Plan of Treatment: Future Appointments (+ 6 months) and Future Tests (+/- 45 days) The Plan of Treatment section includes future care activities for the patient [facility] all [place] [facility] This section includes future appointments [...] 10, 2023 12:00 PM AMBULATORY - MEDICINE [place] [facility] [place] [facility] Jun 17, 2023 08:30 AM AMBULATORY - MEDICINE [place] [facility] [place] [facility] Jun 22, 2023 09:00 AM AMBULATORY - MEDICINE [place] [facility] [place] [facility] Aug 05, 2023 01:00 PM AMBULATORY - MEDICINE [place] [facility] [place] [facility] Aug 07, 2023 02:00 PM AMBULATORY - REHAB MEDICIN E [place] [facility] [place] [facility] Sep 07, 2023 03:00 PM AMBULATORY - REHAB MEDICIN E [place] [facility] [place] [place] [facility] Sep 15, 2023 11:00 AM [facility] Sep 16, 2023 01:00 PM AMBULATORY - MEDICINE [place] [facility] [place] [facility] Sep 18, 2023 10:30 AM AMBULATORY - REHAB MEDICIN E [place] Sep 23, 2023 01:00 PM [facility] Sep 23, 2023 01:15 PM [facility] Sep 30, 2023 03:00 PM [facility] Sep 30, 2023 03:15 PM [facility]INE [facility] Oct 13, 2023 01:00 PM AMBULATORY - MEDICINE [place] [facility] [place] [facility] October 16, 2023 01:00 PM AMBULATORY - MEDICINE [place] C [facility] [place] [facility] Lab Results: +/- 30 days [...] Range Comment May 27, 2023 01:06 PM [facility] MAGNESIUM Specimen Type: SERUM No comment entered. Ordering Provider: MARGARITA DIAMOND Report Released Date/Time: May 11, 2023 01:25 PM Reporting Lab: [address] [address] Performing Lab: [address] [address] MAGNESIUM 1.3 mg/dL L 1.6-2.6 May 27, 2023 01:06 PM [facility] BASIC METABOLIC PANEL (non-fasting) Spe cimen Type: SERUM No comment entered. Ordering Provider: MARGARITA DIAMOND Report Released Date/Time: May 11, 2023 01:25 PM Reporting Lab: [address] [address] Performing Lab: [address] [address] UREA NITROGEN 32 mg/dL H 7-25 GLUCOSE 179 mg/dL H 65-100 SODIUM 136 mmol/L 135-145 POTASSIUM 4.7 mmol/L 3.5-5.0 CHLORIDE 100 mmol/L 100-110 CO2 25 meq/L 20-30 CREATININE, Serum 1.67 mg/dL H 0.50-1.40 eGFR(CKD-EPI 2020) 40 mL/min L >60 May 08, 2023 01:29 PM [facility] MAGNESIUM Specimen Type: SERUM No comment entered. Ordering Provider: MARGARITA DIAMOND Report Released Date/Time: Apr 28, 2023 03:59 PM Reporting Lab: [address] [address] Performing Lab: [address] [address] MAGNESIUM 1.7 mg/dL 1.6-2.6 May 08, 2023 01:29 PM [facility] BASIC METABOLIC PANEL (non-fasting) Spe cimen Type: SERUM No comment entered. Ordering Provider: MARGARITA DIAMOND Report Released Date/Time: Apr 28, 2023 03:59 PM Reporting Lab: [facility] [address] [facility] [address] Performing Lab: [facility] [address] [facility] [address] UREA NITROGEN 29 mg/dL H 7-25 GLUCOSE [...] calls back, supplies can be ordered from [facility]. [facility] COMPLIANCE PROGRAM Patient APAP compliance data reviewed via the Compression Kinetics program for the last 30 days. SETTINGS: Apap 5 - 06mcc22 TOTAL DAYS USED 28 DAYS USED > 4hrs 11 AVG USAGE 3:46 hours AVG PRESSURE 8cmH20 LEAK 24 AHI: 2.5 Central 0.1 If pt has any questions or concerns regarding Apap, he/she can contact Respiratory at [phone] extension [phone]. /es/ RANJITH FIELDS RN CASE MANAGEMENT RESPIRATORY THERAPIST Signed: 06/03/2023 16:18 06/09/2023 ADDENDUM [...] needs a large FFM. /es/ RANJITH FIELDS RN CASE MANAGEMENT RESPIRATORY THERAPIST Signed: 06/09/2023 15:05 RANJITH FIELDS
--- OUTSIDE RECORDS SUMMARY | 2024-06-01 14:05 | XMS_ITS ---
Author Name Department [place] Organization [place] Address [address] [place] [address] Care Team Providers Care Atv Mechanic Name Role Phone MARGARITA FLOREZ Primary [...] Relationship to Policy Bejarano ALVA [place] OF [place] MEDIC[facility] Dec 13, 2013 [id number] DAGMAR,ZIA ERT PATIENT [place] MED[place] SUPPLEMEN [facility] November 06, 2007 [id number] [phone] DAGMAR,ZIA ERT PATIENT [place] MED[place] SUPPLEMEN [facility] MEDEX 2 November 06, 2007 [id number] DAGMAR,ZIA ERT PATIENT [place] SUPPLEMEN [facility] MEDEX 2 November 06, 2007 [id number] [phone] DAGMAR,ZIA ERT PATIENT BCBS OF [facility] MEDICARE SUPPLEMEN [facility] Dec 13, 2013 [id number] DAGMAR,ZIA ERT PATIENT BCBS OF [facility] MEDICARE SUPPLEMEN [place] MMHG/ WHITM AN/MX Dec 13, 2008 [id number] DAGMAR,ZIA ERT PATIENT MEDICARE (WNR) MEDICARE () PART B May 15, 2012 PART B [id number] [phone] DAGMAR,ZIA ERT PATIENT MEDICARE (WNR) MEDICARE () PART A May 15, 2002 PART A [id number] DAGMAR,ZIA ERT PATIENT MEDICARE (WNR) MEDICARE () PART B May 15, 2002 PART B [id number] [phone] DAGMAR,ZIA ERT PATIENT MEDICARE (WNR) MEDICARE () PART A May 15, 2002 PART A [id number] DAGMAR,ZIA ERT PATIENT MEDICARE (WNR) MEDICARE () PART B May 15, 2002 PART B [id number] DAGMAR,ZIA ERT PATIENT MEDICARE (WNR) MEDICARE () PART A May 15, 2002 PART A [id number] [phone] DAGMAR,ZIA ERT PATIENT MEDICARE (WNR) MEDICARE () PART B May 15, 2002 PART B [id number] [phone] DAGMAR,ZIA ERT PATIENT MEDICARE (WNR) MEDICARE () PART A May 15, 2002 PART A [id number] [phone] DAGMAR,ZIA ERT PATIENT Selected Encounter This section includes the information on record at DC for the Encounter. Date/Time Encounter Type Encounter Description Reason Provider Source Sep 07, 2023 03:00 PM HEARING SERVICE AUDIOLOGY ICD-10-CM Z46.1 Encounter for fitting and adjustment of hearing aid FLORENCE LI Encounter Template Text not used by DC Assessments - Encounter Diagnoses This section includes the primary and secondary diagnoses documented for the Encounter. Date/Time Primary/Secondary Diagnosis Diagnosis Name Provider Source Sep 07, 2023 03:43 PM PRIMARY Encounter for fitting and adjustment of hearing aid FLORENCE LI [place] [facility] [place] [facility] Sep 07, 2023 03:43 PM SECONDARY Sensorineural hearing loss, bilateral FLORENCE LI E [place] [facility] [place] [facility] Plan of Treatment: Future Appointments (+ 6 months) and Future Tests (+/- 45 days) The Plan of Treatment section includes future care activities for the patient from all [place] treatmentfacilities. This section includes future appointments and future orders which are active, pending or scheduled. Future Appointments This section includes appointments that were scheduled to occur 6 months from the date of the Encounter, up to a maximum of 20 appointments. The data comes from all [place] treatment facilities. Appointment Date/Time Appointment Type Appointme nt Facility Name Sep 15, 2023 11:00 AM [facility] Sep 16, 2023 01:00 PM AMBULATORY - MEDICINE [place] C [place] [facility] Sep 18, 2023 10:30 AM AMBULATORY - REHAB MEDICIN E [place] Sep 23, 2023 01:00 PM [facility] Sep 23, 2023 01:15 PM [facility] Sep 30, 2023 03:00 PM [facility] Sep 30, 2023 03:15 PM [facility] Oct 13, 2023 01:00 PM AMBULATORY - MEDICINE DC C [facility] [place] [facility] October 16, 2023 01:00 PM AMBULATORY - MEDICINE DC C [facility] [place] [facility] Dec 15, 2023 02:30 PM [facility] Dec 30, 2023 03:00 PM AMBULATORY - MEDICINE DC C [facility] [place] [facility] Mar 02, 2024 03:00 PM [facility] Lab Results: +/- 30 days of the encounter This section includes the Chemistry and Hematology Lab Results on record with DC for the patient. Radiology Reports and Pathology Reports are provided separately, in subsequent sections. Lab Results This section contains the Chemistry/Hematology Results that were resulted 30 days before or 30 daysafter the date of the Encounter. Date/Time Source Result Type Result - Unit Interpretation Reference Range Comment Sep 23, 2023 01:35 PM [place] COVID-19 FLU/RSV DIAGNOSTIC PANEL Speci men Type: NASOPHARYNX Comment: This test is authorized for emergency use only. False negative results may occur if virus is present at levels below the analytical limit of detection.Nega tive results do not preclude SARS-CoV-2, influenza or RSV infection and should not be used as the sole basis for treatment or other patient management decisions.[facility] mone FLUVID: HCPs: https://www.Equals6 a.gov/media/ 124/download. Patients: https://www.Equals6 a.gov/media/2435/download Ordering Provider: CHATO ADHIKARI Report Released Date/Time: Sep 23, 2023 01:14 PM Reporting Lab: [address] [address] Performing Lab: [address] [address] COVID-19 PCR (FLUVID) NEGATIVE NEGATIVE FLU A PCR (FLUVID) NEGATIVE FLU B PCR (FLUVID) NEGATIVE RSV PCR (FLUVID) NEGATIVE Sep 16, 2023 01:56 PM [facility] HEMOGLOBIN A1C PANEL Specimen Type: BLOOD [...] Sep 16, 2023 01:09 PM Reporting Lab: [address] [address] Performing Lab: [address] [address] HEMOGLOBIN A1C 6.8 H 4.0-5.6 Sep 16, 2023 01:56 PM [facility] BASIC METABOLIC PANEL (non-fasting) Specimen Type: SERUM No comment entered. Ordering Provider: NIK GILL Report Released Date/Time: Sep 16, 2023 01:09 PM Reporting Lab: [address] [address] Performing Lab: [facility] [address] [facility] [address] UREA NITROGEN 25 mg/dL 7-25 GLUCOSE 234 mg/dL H 65-100 SODIUM 140 mmol/L 135-145 POTASSIUM 5.0 mmol/L 3.5-5.0 CHLORIDE 106 mmol/L 100-110 CO2 23 meq/L 20-30 CREATININE, Serum 1.80 mg/dL H 0.50-1.40 eGFR(CKD-EPI 2020) 36 mL/min L >60 Sep 16, 2023 01:56 PM [facility] CBC Specimen Type: BLOOD No comment entered. Ordering Provider: NIK GILL Report Released Date/Time: Sep 16, 2023 01:09 PM Reporting Lab: [address] [address] Performing Lab: [address] [address] WBC 7.86 10*3/uL 4.50-11.00 RBC 4.28 10*6/uL [...] and tobacco- related health factors from the DC facility where the Encounter took place. Current Smoking Status This section includes the most current smoking, or tobacco-related health factor, from the DC facility where the Encounter took place. Date/Time Current Smoking Status Comment Facil juan david Apr 15, 2022 01:00 PM VA-TOBACCO NEVER USED [facility] Radiology Reports: +/- 30 days of [...] the Encounter. The data comes from all [place] treatment facilities. Date/Time Radiology Report Provider Source Sep 24, 2023 03:11 PM CHEST (2 VIEWS): ORLY LEAVITT [id number] -1935 M Exm Date: SEP 24, 2023@15:11 Req Phys: CHATO ADHIKARI Loc: CWM/SO/SICK CALL GAS APPLIANCE REPAIRER (Req'g Loc Img Loc: [facility] 1 Service: Unknown (Case [id number] COMPLETE) CHEST (2 VIEWS) (RAD Detailed) CPT:25218 Reason for Study: wheezing, cough, SOB Clinical History: Covering resident, fellow, GAS APPLIANCE REPAIRER or attending: Chato Adhikari NP DC Pager: [phone] Backup pager: History: Report Status: Verified Date Reported: SEP 24, 2023 Date Verified: SEP 24, 2023 Laser Beam Cutter E-Sig:/ES/LATRICE DUNBAR JR Report: Study: PA [...] Primary Interpreting Staff: LATRICE DUNBAR JR, Radiologist (Laser Beam Cutter) /LATRICE BAGLEY JR DC CNT WSN [facility] Encounter Notes: All associated encounter notes [...] Does the patient/client have any cultural and yazdanism beliefs, emotional barriers, physical or cognitive limitations, and communication barriers which may impact his/her ability to learn? no Desire and motivation to learn? Good OBJECTIVE (O): Physical fit of earmolds/receivers and domes/hearing aids was good. [place] [facility] verified comfort. Verification of an appropriate acoustic response was obtained using Real Ear measurements (speech mapping) and NAL-NL1 targets. The reported good subjective benefit as well. Feedback audit manager was run. Hearing aids were found to be meeting targets adequately and MPO was not exceeding estimated UCL. Settings stored in SYLVIE. ASSESSMENT (A): The following device(s) was/were issued: Make: Florentino Model: Evolv AI BTE R, remote control, TV streamer Serial Numbers: [id number] Battery size: RECHARGEABLE Trial Period ends: 02-11-24 Domes/wax guards, etc.: n/a Earmold Information: clear, lucite, canal, thin tubes Stock Room Manager size/power: n/a Program Settings (VC, Programs, Buttons): [...] and reports confidence/understanding in all items reviewed. [place] [facility] was given written reference materials today. The was informed of and agreed to DC policy on hearing aid issuance: Users are responsible for the maintenance and security of their devices. Determination of need to replace a hearing aid is made by the DC envelope machine operator. Hearing aids will not be replaced in [...] RE Not Applicable NA /radhames/ Anastacia JUAREZ, [facility]-A STAFF MEDICAL OFFICE RECEPTIONIST ASSISTANT Signed: 09/07/2023 16:11 10/21/2023 ADDENDUM STATUS: COMPLETED [place] [facility] returned IOI-SINGH Outcome Measure to the clinic via mail with an overall score of 24 Based on this score: i. No follow-up call is indicated _xx_ ii. Follow-up call is indicated and fitting clinician will be notified __ /es/ JES GUDINO Audiology Health Structural Designer Signed: 10/21/2023 13:26 [facility]
--- OUTSIDE RECORDS SUMMARY | 2024-06-01 14:05 | XMS_ITS | Encounter Summary ---
Author Name [place] Address [address] [place] [address] Care Team Providers Care Wood Machine Carver Name Role Phone MARGARITA FLOREZ Primary Care [...] Bejarano ALVA [place] MEDIC[place] SUPPLEMEN [facility] Dec 13, 2013 [id number] [phone] DAGMAR,ZIA ERT PATIENT [place]BS [place] MED[place] SUPPLEMEN [facility] November 06, 2007 [id number] DAGMAR,ZIA ERT PATIENT [place] SUPPLEMEN [place] MEDEX 2 November 06, 2007 [id number] DAGMAR,ZIA ERT PATIENT [place] SUPPLEMEN [place] MEDEX 2 November 06, 2007 [id number] DAGMAR,ZIA ERT PATIENT BCBS OF [facility] MEDICARE SUPPLEMEN [facility] Dec 13, 2013 [id number] DAGMAR,ZIA ERT PATIENT [facility] [place] MEDICARE [facility] AN/MX Dec 13, 2008 [id number] DAGMAR,ZIA ERT PATIENT MEDICARE (WNR) MEDICARE (M) PART B May 15, 2012 PART B [id number] [phone] DAGMAR,ZIA ERT PATIENT MEDICARE (WNR) MEDICARE (M) PART A May 15, 2002 PART A [id number] DAGMAR,ZIA ERT PATIENT MEDICARE (WNR) MEDICARE (M) PART B May 15, 2002 PART B [id number] DAGMAR,ZIA ERT PATIENT MEDICARE (WNR) MEDICARE (M) PART A May 15, 2002 PART A [id number] [phone] DAGMAR,ZIA ERT PATIENT MEDICARE (WNR) MEDICARE (M) PART B May 15, 2002 PART B [id number] DAGMAR,ZIA ERT PATIENT MEDICARE (WNR) MEDICARE (M) PART A May 15, 2002 PART A [id number] DAGMAR,ZIA ERT PATIENT MEDICARE (WNR) MEDICARE (M) PART B May 15, 2002 PART B [id number] DAGMAR,ZIA ERT PATIENT MEDICARE (WNR) MEDICARE (M) PART A May 15, 2002 PART A [id number] DAGMAR,ZIA ERT PATIENT Selected Encounter This [...] 03:00 PM AMBULATORY - REHAB MEDICIN E [place] [facility] [place] [facility] Sep 15, 2023 11:00 AM [facility] 16, 2023 01:00 PM AMBULATORY - MEDICINE [place] C [place] [facility] Sep 18, 2023 10:30 AM AMBULATORY - REHAB MEDICIN [place] Sep 23, 2023 01:00 PM AMBULATORY - MEDICINE [facility] Sep 23, 2023 01:15 PM [facility] Sep 30[facility] 2023 03:00 PM [facility] Sep 30, 2023 03:15 PM [facility] Oct 13, 2023 01:00 PM AMBULATORY - MEDICINE [place] C [place] [facility] October 16, 2023 01:00 PM AMBULATORY - MEDICINE [place] C [place] [place] [facility] Dec 15, 2023 02:30 PM AMBULATORY - MEDICINE [facility] Dec 30, 2023 03:00 PM AMBULATORY - MEDICINE [place] C [facility]TRL [place] [facility] Lab Results: +/- 30 days [...] Range Comment Sep 23, 2023 01:35 PM [place] COVID-19 FLU/RSV DIAGNOSTIC PANEL Speci men Type: NASOPHARYNX Comment: This test is authorized for emergency use only. False negative results may occur if virus is present at levels below the analytical limit of detection.Nega tive results do not preclude SARS-CoV-2, influenza or RSV infection and should not be used as the sole basis for treatment or other patient management decisions.[facility] mone FLUVID: HCPs: https://www.Whyteboard a.gov/media/ 9782/download. Patients: https://www.Whyteboard a.gov/media/ 5750/download Ordering Provider: CHAOT ADHIKARI Report Released Date/Time: Sep 23, 2023 01:14 PM Reporting Lab: [address] [address] Performing Lab: [address] [address] COVID-19 PCR (FLUVID) NEGATIVE NEGATIVE FLU A PCR (FLUVID) NEGATIVE FLU B PCR (FLUVID) NEGATIVE RSV PCR (FLUVID) NEGATIVE Sep 16, 2023 01:56 PM [facility] HEMOGLOBIN A1C PANEL Specimen Type: BLOOD [...] 16, 2023 01:09 PM Reporting Lab: [address] [address] Performing Lab: [address] [address] HEMOGLOBIN A1C 6.8 H 4.0-5.6 Sep 16, 2023 01:56 PM [facility] BASIC METABOLIC PANEL (non-fasting) Specimen Type: SERUM No comment entered. Ordering Provider: NIK GILL Report Released Date/Time: Sep 16, 2023 01:09 PM Reporting Lab: [address] [address] Performing Lab: [address] [address] UREA NITROGEN 25 mg/dL 7-25 GLUCOSE 234 mg/dL H 65-100 SODIUM 140 mmol/L 135-145 POTASSIUM 5.0 mmol/L 3.5-5.0 CHLORIDE 106 mmol/L 100-110 CO2 23 meq/L 20-30 CREATININE, Serum 1.80 mg/dL H 0.50-1.40 eGFR(CKD-EPI 2020) 36 mL/min L >60 Sep 16, 2023 01:56 PM [facility] CBC Specimen Type: BLOOD No comment entered. Ordering Provider: NIK GILL Report Released Date/Time: Sep 16, 2023 01:09 PM Reporting Lab: [facility] [address] [facility] [address] Performing Lab: [facility] [address] [facility] [address] WBC 7.86 10*3/uL 4.50-11.00 RBC 4.28 10*6/uL [...] 15, 2022 01:00 PM VA-TOBACCO NEVER USED [facility] Radiology Reports: +/- 30 days of [...] the Encounter. The data comes from all [place] treatment facilities. Date/Time Radiology Report Provider Source Sep 24, 2023 03:11 PM CHEST (2 VIEWS): ORLY LEAVITT [id number] -1935 M Exm Date: SEP 24, 2023@15:11 Req Phys: CHATO ADHIKARI Loc: CWM/SO/SICK CALL VP [employer] (Req'g Loc Img Loc: [facility] 1 Service: Unknown (Case [id number] COMPLETE) CHEST (2 VIEWS) (RAD Detailed) CPT:43910 Reason for Study: wheezing, cough, SOB Clinical History: Covering resident, fellow, VP [employer] or attending: Chato Adhikari NP [place] Pager: [phone] Backup pager: History: Report Status: Verified Date Reported: SEP 24, 2023 Date Verified: SEP 24, 2023 Sonoscope Operator E-Sig:/ES/LATRICE DUNBAR JR Report: Study: PA [...] Primary Interpreting Staff: LATRICE DUNBAR JR, Radiologist (Sonoscope Operator) /LATRICE BAGLEY JR [place] CNTRL [facility] Encounter Notes: All associated encounter notes [...] Patient Name: ORLY LEAVITT Patient Primary Phone: [phone] Patient Primary Address: [address] [place] [address] Patient : 1935 Patient Age: 88 Caller/Recipient Relation to Patient: Self Administrative Administrative Note Reason: Other Administrative Note Comments: Patient asking for the status of his handicap placard that he handed in back in 2023? Please call patient at [phone]. /radhames/ JOSE WILDER [facility] AMSA Signed: 08/27/2023 15:15 Receipt Acknowledged By: 09/01/2023 10:51 /es/ LENNOX PEARCE RN REGISTERED NURSE 09/02/2023 09:23 /es/ LILLIANA CHRISTIE LPN, KATIE L [facility]
--- OUTSIDE RECORDS SUMMARY | 2024-06-01 14:05 | XMS_ITS | Encounter Summary ---
Author Name [place] Address [address] [place] [address] Care Team Providers Care Wind Tunnel Mechanic Name Role Phone MARGARITA FLOREZ Primary [...] Policy Bejarano [place] [facility] Dec 13, 2013 [id number] DAGMAR,ZIA ERT PATIENT [place] SUPP[facility]MEN [facility] November 06, 2007 [id number] DAGMAR,ZIA ERT PATIENT [place]BS [place] MED[place] SUPPLEMEN [facility] MEDEX 2 November 06, 2007 [id number] [phone] DAGMAR,ZIA ERT PAT[place] MED[facility] 2 November 06, 2007 [id number] DAGMAR,ZIA ERT PATIENT BCBS OF [facility] MEDICARE SUPP[facility]MEN [facility] Dec 13, 2013 [id number] [phone] DAGMAR,ZIA ERT PATIENT [place] MED[place] SUPPLEMEN [facility] MMHG/ WHITM AN/MX Dec 13, 2008 [id number] DAGMAR,ZIA ERT PATIENT MEDICARE (WNR) MEDICARE () PART B May 15, 2012 PART B [id number] DAGMAR,ZIA ERT PATIENT MEDICARE (WNR) MEDICARE () PART A May 15, 2002 PART A [id number] DAGMAR,ZIA ERT PATIENT MEDICARE (WNR) MEDICARE () PART A May 15, 2002 PART A [id number] DAGMAR,IZA ERT PATIENT MEDICARE (WNR) MEDICARE () PART B May 15, 2002 PART B [id number] DAGMAR,ZIA ERT PATIENT MEDICARE (WNR) MEDICARE () PART A May 15, 2002 PART A [id number] DAGMAR,ZIA ERT PATIENT MEDICARE (WNR) MEDICARE () PART B May 15, 2002 PART B [id number] [id number] DAGMAR,ZIA ERT PATIENT MEDICARE (WNR) MEDICARE () PART A May 15, 2002 PART A [id number] [phone] DAGMAR,ZIA ERT PATIENT MEDICARE (WNR) MEDICARE () PART B May 15, 2002 PART B [id number] DAGMAR,ZIA ERT PATIENT Selected Encounter This [...] 2 diabetes mellitus without complications [facility] Oct 04, 2023 07:09 AM SECONDARY Abnormal findings on diagnostic imaging of prt ms sys [facility] Oct 04, 2023 07:09 AM SECONDARY Aneurysm of aorta in diseases classified elsewhere [facility]IE [facility]INGFa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 Oct 04, 2023 07:09 AM SECONDARY Deficiency of other specified B group vitamins [facility] Oct 04, 2023 07:09 [...] 07:09 AM SECONDARY Insomnia, unspecified SWATIAZDIN-BOSKO [facility] Oct 04, 2023 07:09 AM SECONDARY Malignant neoplasm of prostate MATTI-BOSSIMONE [facility]DINGFaustinoFa[facility]ino[facility] Oct 04, 2023 07:09 AM SECONDARY Mixed hyperlipidemia MATTI-BOSKO [facility]LLYFa[facility]inoFa[facility]ino[facility] Oct 04, 2023 07:09 AM SECONDARY Obstructive sleep apnea (adult) (pediatric) MATTI-[facility]OSKO [facility] Oct 04, 2023 07:09 AM SECONDARY Other specified peripheral vascular diseases MATTI-IESHA SPAULDINGFaustinoRANJEET Santillan [place] Oct 04, 2023 07:09 AM SECONDARY Type 2 diabetes mellitus with diabetic nephropathy MARGARITA DIAMOND [facility] Oct 04, 2023 07:09 AM SECONDARY Type 2 diabetes mellitus with diabetic neuropathy, unsp SKIPSIMONE SPAULDINGMARGARITA Santillan [place] Plan of Treatment: Future Appointments (+ 6 months) and Future Tests (+/- 45 days) The Plan of Treatment section includes future care activities for the patient from all [place] [facility]. This section includes future appointments [...] 16, 2023 01:00 PM AMBUL[facility] [place] [facility] Sep 18, 2023 10:30 AM AMBULAT[facility] - [facility] Sep 23, 2023 01:00 PM [facility] Sep 23, 2023 01:15 PM [facility] Sep 30, 2023 03:00 PM [facility]ULAT[facility] Sep 30, 2023 03:15 PM AMBULATORY - [facility] Oct 13, 2023 01:00 PM AMBULATORY [place] [facility] October 16, 2023 01:00 PM AM[facility]UL[facility] [place] [facility] Dec 15, 2023 02:30 PM AMBULATORY - MEDICINE [facility] Dec 30, 2023 03:00 PM AMBULATORY - MEDICINE [place] [facility] Mar 02, 2024 03:00 PM AMBULATORY - MEDICINE SPR[facility] Lab Results: +/- 30 days [...] Range Comment Sep 23, 2023 01:35 PM [place] COVID-19 FLU/RSV DIAGNOSTIC PANEL Speci men Type: NASOPHARYNX Comment: This test is authorized for emergency use only. False negative results may occur if virus is present at levels below the analytical limit of detection.Nega tive results do not preclude SARS-CoV-2, influenza or RSV infection and should not be used as the sole basis for treatment or other patient management decisions.[facility] mone FLUVID: HCPs: https://www.[employer].gov/media/ 179/download. Patients: https://www.[employer].gov/media/2435/download Ordering Provider: CHATO PURVIS Report Released Date/Time: Sep 23, 2023 01:14 PM Reporting Lab: [address] [address] Performing Lab: [address] [address] COVID-19 PCR (FLUVID) NEGATIVE NEGATIVE FLU A PCR (FLUVID) NEGATIVE FLU B PCR (FLUVID) NEGATIVE RSV PCR (FLUVID) NEGATIVE Sep 16, 2023 01:[address] [facility] HEMOGLOBIN A1C PANEL Specimen Type: BLOOD [...] Sep 16, 2023 01:09 PM Reporting Lab: [address] [address] Performing Lab: [address] [address] HEMOGLOBIN A1C 6.8 H 4.0-5.6 Sep 16, 2023 01:[address] [facility] BASIC METABOLIC PANEL (non-fasting) Specimen Type: SERUM No comment entered. Ordering Provider: NIK GILL Report Released Date/Time: Sep 16, 2023 01:09 PM Reporting Lab: [facility] [address] [facility] [address] Performing Lab: [facility] [address] [address] UREA NITROGEN 25 mg/dL 7-25 GLUCOSE 234 mg/dL H 65-100 SODIUM 140 mmol/L 135-145 POTASSIUM 5.0 mmol/L 3.5-5.0 CHLORIDE 106 mmol/L 100-110 CO2 23 meq/L 20-30 CREATININE, Serum 1.80 mg/dL H 0.50-1.40 eGFR(CKD-EPI 2020) 36 mL/min L >60 Sep 16, 2023 01:[address] [facility] CBC Specimen Type: BLOOD No comment entered. Ordering Provider: NIK GILL Report Released Date/Time: Sep 16, 2023 01:09 PM Reporting Lab: [address] [address] Performing Lab: [address] [address] WBC 7.86 10*3/uL 4.50-11.00 RBC 4.28 10*6/uL [...] 28, 2023 03:00 PM VA-TOBACCO NEVER USED [place] Tobacco Use History This section includes a history of the smoking, or tobacco-related health factors, that were collected on or before the date of the Encounter. The data comes from the [place] facility where the Encounter took place. Date/Time Smoking Status/Tobacco Use Comment F acility Apr 09, 2021 10:00 AM VA-TOBACCO NEVER USED [place] Mar 13, 2020 12:30 PM VA-TOBACCO NEVER USED [place] Feb 02, 2018 02:02 PM VA-TOBACCO NEVER USED [place] Mar 10, 2017 01:57 PM LIFETIME NON-TOBACCO USER [place] Feb 11, 2016 02:44 PM LIFETIME NON-TOBACCO USER [place] May 09, 2009 09:43 AM LIFETIME NON-TOBACCO USER [place] Radiology Reports: +/- 30 days of the [...] the Encounter. The data comes from all [facility] facilities. Date/Time Radiology Report Provider Source Sep 24, 2023 03:11 PM CHEST (2 VIEWS): ORLY LEAVITT [id number] -[id number] M Exm Date: SEP 24, 2023@15:11 Req Phys: CHATO PURVIS Loc: CWM/SO/SICK CALL SOLID WASTE FACILITY OPERATOR (Req'g Loc Img Loc: [facility] [place] 1 Service: Unknown (Case [id number] COMPLETE) CHEST (2 VIEWS) (RAD Detailed) CPT:19773 Reason for Study: wheezing, cough, SOB Clinical History: Covering resident, fellow, SOLID WASTE FACILITY OPERATOR or attending: Chato Purvis NP [place] Pager: [phone] Backup pager: History: Report Status: Verified Date Reported: SEP 24, 2023 Date Verified: SEP 24, 2023 Metal Casket Assembler E-Sig:/ES/LATRICE DUNBAR JR Report: Study: PA and [...] Primary Interpreting Staff: LATRICE DUNBAR JR, Radiologist (Metal Casket Assembler) /EALATRICE DURHAM JR [place] [facility] Encounter Notes: All associated [...] visit 04/[address] Barrientos in [facility]- closed PCP is [place] Other providers: [facility] --urology Dr Samaria Reed in [place] [phone]- last 11/2021 h/o prostate ca- latest PSA 0.15, testosterone 13 -->q4m->stop ADT (last dose 05/2020 q6m)--> last 07/2021 -plan to restart ADT if PSA increase --Cardiology Dr Flannery q6m- - endocrinology Dr. Rudolph--> [facility] - GI Dr. Valdez - stop screening CRC, Jenkins's (last 07/2022)RTC prn - [facility] Vascular surgery q6-12m-last 02/2023 Dr Gilbert - eye NE - audiology NE - podiatry [place] daughter Mindi [phone] pt brought a note written by his [...] baseline/palpitations/dizzine ss/claudication h/o stents x 6 h/o IA x2 had ECHO 01/2022 - mildly reduced LVEF, new wma since 2016 f/w cardiology Since last visit lisinopril discontinued by renal Lasix decreased to 20 mg daily PAST MEDICAL HISTORY: -- HTN -- HL -- DM2 -- CAD, h/o IA x2, s/p PCI stents x6 2005:PTCA 5 TaxusStents: LADx2 RCAx2 Prox RCA x1 09-20-06: [place] Stent Presley Greenberg MD: [phone] Dr Flannery -- Other dyspnea and respiratory [...] HISTORY: -- 1957: 2 rt inguinal hernia repair/[place] -- 1958: Rt Inguinal Hernia Repair/ [facility] [...] daily FAMILY HISTORY: --DM:no --Cancer:mother colon cancer --IA:FAM HX-[facility] HEART DIS--twin brother: CABG and valve surgery --CVA: no --Mental Health/addiction: --Other: SOCIAL HISTORY: --Occupation:RETIRED [employer]ER [employer] --Cohabitation: , recovered well after CVA in [...] stop screening due to age Dr. Valdez [facility]. 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 Intact (Greater than or [...] of active outpatient prescriptions dispensed from this NE (local) and dispensed from another NE or DoD facility (remote) as well as [...] Nurse (RN) Signed: 12/01/2023 20:39 MERY FLOREZ [place]
--- OUTSIDE RECORDS SUMMARY | 2024-06-01 14:05 | XMS_ITS | Encounter Summary ---
Author Name [place] Address [address] [place] [address] Care Team Providers Care Blend Plant Operator Name Role Phone MARGARITA FLOREZ Primary [...] Policy Bejarano [place] MED[place] Dec 13, 2013 [id number] [phone] DAGMAR,ZIA ERT PATIENT BCBS [place] MEDICARE SUPPLEMEN [facility] November 06, 2007 [id number] [phone] DAGMAR,ZIA ERT PATIENT [place] SUPPLEMEN [facility] MEDEX 2 November 06, 2007 [id number] DAGMAR,ZIA ERT PATIENT [place] SUPP[place]MEN [place] MEDEX 2 November 06, 2007 [id number] DAGMAR,ZIA ERT PATIENT BCBS OF [facility] MEDICARE SUPPLEMEN [facility] Dec 13, 2013 [id number] DAGMAR,ZIA ERT PATIENT BCBS OF [facility] MEDICARE SUPPLEMEN [place] MMHG/ WHITM AN/MX Dec 13, 2008 [id number] DAGMAR,ZIA ERT PATIENT MEDICARE (WNR) MEDICARE () PART B May 15, 2012 PART B [id number] DAGMAR,ZIA ERT PATIENT MEDICARE (WNR) MEDICARE () PART A May 15, 2002 PART A [id number] DAGMAR,ZIA ERT PATIENT MEDICARE (WNR) MEDICARE () PART B May 15, 2002 PART B [id number] [phone] DAGMAR,ZIA ERT PATIENT MEDICARE (WNR) MEDICARE () PART A May 15, 2002 PART A [id number] [phone] DAGMAR,ZIA ERT PATIENT MEDICARE (WNR) MEDICARE () PART B May 15, 2002 PART B [id number] DAGMAR,ZIA ERT PATIENT MEDICARE (WNR) MEDICARE () PART A May 15, 2002 PART A [id number] DAGMAR,ZIA ERT PATIENT MEDICARE (WNR) MEDICARE () PART B May 15, 2002 PART B [id number] DAGMAR,ZIA ERT PATIENT MEDICARE (WNR) MEDICARE () PART A May 15, 2002 PART A [id number] [phone] DAGMAR,ZIA ERT PATIENT Selected Encounter This [...] activities for the patient from all [place] [facility]. This section includes future appointments and future [...] REHAB MEDICIN [place] [facility] Sep 07, 2023 03:00 PM AMBULATORY - REHAB MEDICIN [place] [facility] Sep 15, 2023 11:00 AM [facility] Sep 16, 2023 01:00 PM AMBULATORY - MEDICINE [facility] Sep 18, 2023 10:30 AM AMBULATORY - [facility]ICIN [facility] Sep 23, 2023 01:00 PM [facility] Sep 23, 2023 01:15 PM AMBULAT[facility] Sep 30, 2023 03:00 PM [facility] Sep 30, 2023 03:15 PM [facility] Oct 13, 2023 01:00 PM AMBULATORY - [place]ICINE [place] [facility] October 16, 2023 01:00 PM AMBULATORY - MEDICINE [facility] Dec 15, 2023 02:30 PM [facility] Dec 30, 2023 03:00 PM AMBULATORY - MEDICINE [facility] Social History: Smoking Status (Most current) and [...] 28, 2023 03:00 PM VA-TOBACCO NEVER USED [place] Tobacco Use History This section includes a history of the smoking, or tobacco-related health factors, that were collected on or before the date of the Encounter. The data comes from the [place] facility where the Encounter took place. Date/Time Smoking Status/Tobacco Use Comment F acmelissa Apr 09, 2021 10:00 AM [place]-TOBACCO NEVER USED [place] Mar 13, 2020 12:30 PM VA-TOBACCO NEVER USED [place] Feb 02, 2018 02:02 PM VA-TOBACCO NEVER USED [place] Mar 10, 2017 01:57 PM LIFETIME NON-TOBACCO USER [place] Feb 11, 2016 02:44 PM LIFETIME NON-TOBACCO USER [place] May 09, 2009 09:43 AM LIFETIME NON-TOBACCO USER [place] Encounter Notes: All associated encounter notes This [...] Patient Name: ORLY LEAVITT was seen via [facility] for follow-up for diabetes management treatment. : [...] Pt has had 6 stents placed. 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 Dr. Ríos is the mucking machine operator on the outside. Pt lives w/ his Per consult from PCP pt is interested in obtaining sensor from the [place]. Target Goals: A1C: 7%; FB-130 mg/dL; 2HRS PP <180mg/dL. Allergies: COLCHICINE/PROBENECID PERTINENT INFORMATION: Active problems - Computerized Problem List is the source for the followin. Obstructive Sleep Apnea of Adult ([facility] [id number]) 2. Prostate Cancer ([facility] [id number]) 3. Chronic kidney disease stage 3 4. Low Back Pain * 5. Vitamin B 12 Deficiency 6. 2009: Colonoscopy: Polypectomy 7. 11-08-09: PFT: Normal 8. Abdominal aortic aneurysm (SNOMED CT 097729513) 9. Benign essential hypertension (SNOMED CT 9775220) 10. Venous insufficiency of leg (SNOMED CT 100584369) 11. Other dyspnea and respiratory abnormality 12. Coronary arteriosclerosis (SNOMED CT 32532354) 13. CAD: 2005:PTCA 5 TaxusStents: LADx2 RCAx2 Prox RCA x1 14. Gout 15. Hyperglycemia due to type 2 diabetes mellitus (SNOMED CT [id number]) 16. Gastroesophageal Reflux Disorder 17. Hyperlipidemia (SNOMED CT 32181491) 18. 1957: 2 rt inguinal hernia repair/[place] 19. 1969: Lipoma Removal 20. Tonsillectomy and [...] 70/30 - as the pens are on center manager's backorder. Reviewed w/ pt and dtr how to use vial and syringe. Pt's dtr works in medical field is very well familiar how to perform injections using vials and syringes. Pt and dtr were able to demonstrate back to the abstract writer how to use it. Will order it + syringes pt to milk pickup truck driver at the pharmacy window tomorrow. Reviewed the [...] Will assess futher. Reviewed the upload w/ [place] and dtr. f/up end of June. adn [...] He is being followed by nephrology in [facility] - note from 08/08 reviewed by this abstract writer. His dose of lasix has been reduced from 40 mg daily to 20 mg daily. Pt is in agreement w/ plan. Reviewed BG data. Pt to milk pickup truck driver more sensors at the pharmacy today. f/up [...] units - TDD: 46 units - Reviewed [place] lab results - Monitor for s/sx hypoglycemia [...] of Preventive Care: Most recent [facility] tube bender[facility] Dr[facility] Reyes 2 [...] monitor and assess /radhames/ TARUN GILL CLINICAL BLUE PRINTS TRIMMER Signed: 08/06/2023 08:18 Receipt Acknowledged By: 08/07/2023 00:50 /radhames/ MARGARITA FLOREZ MD PHYSICIAN [place]
--- OUTSIDE RECORDS SUMMARY | 2024-06-01 14:05 | XMS_ITS | Encounter Summary ---
Author Name [place] Address [address] [place] [address] Care Team Providers Care Seismograph Chief Name Role Phone MARGARITA FLOREZ Primary [...] Relationship to Policy Bejarano [place] MEDICARE SUPPLEMEN [facility] Dec 13, 2013 [id number] DAGMAR,ZIA ERT PATIENT [place]BS [place] MED[place] SUPPLEMEN [facility] November 06, 2007 [id number] DAGMAR,ZIA ERT PATIENT [place] MED[place] SUPPLEMEN [facility]EX 2 November 06, 2007 [id number] [phone] DAGMAR,ZIA ERT PATIENT [place] MED[place] SUPPLE[place] [facility] 2 November 06, 2007 [id number] [phone] DAGMAR,ZIA ERT PATIENT BCBS OF [facility] MEDICARE SUPPLEMEN [place] Dec 13, 2013 [id number] DAGMAR,ZIA ERT PATIENT [facility] [place] MEDICARE [facility] AN/MX Dec 13, 2008 [id number] DAGMAR,ZIA ERT PATIENT MEDICARE (WNR) MEDICARE (M) PART B May 15, 2012 PART B [id number] DAGMAR,ZIA ERT PATIENT MEDICARE (WNR) MEDICARE (M) PART A May 15, 2002 PART A [id number] DAGMAR,ZIA ERT PATIENT MEDICARE (WNR) MEDICARE (M) PART B May 15, 2002 PART B [id number] DAGMAR,ZIA ERT PATIENT MEDICARE (WNR) MEDICARE (M) PART A May 15, 2002 PART A [id number] DAGMAR,ZIA ERT PATIENT MEDICARE (WNR) MEDICARE (M) PART B May 15, 2002 PART B [id number] [phone] DAGMAR,ZIA ERT PATIENT MEDICARE (WNR) MEDICARE (M) PART A May 15, 2002 PART A [id number] DAGMAR,ZIA ERT PATIENT MEDICARE (WNR) MEDICARE (M) PART B May 15, 2002 PART B [id number] [phone] DAGMAR,ZIA ERT PATIENT MEDICARE (WNR) MEDICARE (M) PART A May 15, 2002 PART A [id number] DAGMAR,ZIA ERT PATIENT Selected Encounter This [...] REHAB MEDICIN E [place] [facility] [facility] Sep 15, 2023 11:00 AM AM[place]ORY - [place]ICINE [place] Sep 16, 2023 01:00 PM AMBULATORY - MEDICINE [place] [facility] Sep 18, 2023 10:30 AM AMBULATORY - REHAB MEDICIN E [place] Sep 23, 2023 01:00 PM [facility]ORY - [place]ICINE [place] Sep 23, 2023 01:15 PM [facility]ORY - MEDICINE [place] Sep 30, 2023 03:00 PM AMB[facility]ORY - MEDICINE [place] Sep 30, 2023 03:15 PM [facility]ORY - MEDICINE [place] Oct 13, 2023 01:00 PM AMBULATORY - MEDICINE [place] [facility] October 16, 2023 01:00 PM AMBULATORY - MEDICINE [place] [facility] Dec 15, 2023 02:30 PM AMBULATORY - MEDICINE [place] Dec 30, 2023 03:00 PM AMBULATORY - MEDICINE [place] [facility] Mar 02, 2024 03:00 PM AMBULATORY [...] Range Comment Sep 23, 2023 01:35 PM [place] COVID-19 FLU/RSV DIAGNOSTIC PANEL Speci men Type: [...] management decisions.[facility] mone FLUVID: HCPs: https://www.fd a.gov/media/56 9988/download. Patients: https://www.Hakia a.gov/media/2435/download Ordering Provider: CHATO ADHIKARI Report Released Date/Time: Sep 23, 2023 01:14 PM Reporting Lab: [address] [address] Performing Lab: [address] [address] COVID-19 PCR (FLUVID) NEGATIVE NEGATIVE FLU A PCR (FLUVID) NEGATIVE FLU B PCR (FLUVID) NEGATIVE RSV PCR (FLUVID) NEGATIVE Sep 16, 2023 01:56 PM [facility] HEMOGLOBIN A1C PANEL Specimen Type: BLOOD Comment: [...] Sep 16, 2023 01:09 PM Reporting Lab: [address] [address] Performing Lab: [address] [address] HEMOGLOBIN A1C 6.8 H 4.0-5.6 Sep 16, 2023 01:56 PM [facility] BASIC METABOLIC PANEL (non-fasting) Specimen Type: SERUM No comment entered. Ordering Provider: NIK GILL Report Released Date/Time: Sep 16, 2023 01:09 PM Reporting Lab: [address] [address] Performing Lab: [address] [address] UREA NITROGEN 25 mg/dL 7-25 GLUCOSE 234 mg/dL H 65-100 SODIUM 140 mmol/L 135-145 POTASSIUM 5.0 mmol/L 3.5-5.0 CHLORIDE 106 mmol/L 100-110 CO2 23 meq/L 20-30 CREATININE, Serum 1.80 mg/dL H 0.50-1.40 eGFR(CKD-EPI 2020) 36 mL/min L >60 Sep 16, 2023 01:56 PM [facility] CBC Specimen Type: BLOOD No comment entered. Ordering Provider: NIK GILL Report Released Date/Time: Sep 16, 2023 01:09 PM Reporting Lab: [facility] [address] [address] Performing Lab: [facility] [address] [address] WBC 7.86 10*3/uL 4.50-11.00 RBC 4.28 10*6/uL [...] 01:00 PM VA-TOBACCO NEVER USED [facility] Radiology Reports: +/- 30 days of the [...] the Encounter. The data comes from all [place] treatment facilities. Date/Time Radiology Report Provider Source Sep 24, 2023 03:11 PM CHEST (2 VIEWS): ORLY LEAVITT [id number] -1935 M Exm Date: SEP 24, 2023@15:11 Req Phys: CHATO ADHIKARI Loc: CWM/SO/SICK CALL HEALTH UNDERWRITER (Req'g Loc Img Loc: [facility] 1 Service: Unknown (Case [id number] COMPLETE) CHEST (2 VIEWS) (RAD Detailed) CPT:98563 Reason for Study: wheezing, cough, SOB Clinical History: Covering resident, fellow, HEALTH UNDERWRITER or attending: Chato Adhikari NP [place] Pager: [phone] Backup pager: History: Report Status: Verified Date Reported: SEP 24, 2023 Date Verified: SEP 24, 2023 Employee Communications Coordinator E-Sig:/ES/LATRICE DUNBAR JR Report: Study: PA and [...] Primary Interpreting Staff: LATRICE DUNBAR JR, Radiologist (Employee Communications Coordinator) /LATRICE BAGLEY JR [place] [facility] Encounter Notes: All [...] Patient Name: ORLY LEAVITT Patient Primary Phone: [phone] Patient Primary Address: [address] [place] [address] Patient : 1935 Patient Age: 88 Call Back Number: [phone] Caller/Recipient Relation to Patient: Self Administrative Administrative Note Reason: Other Administrative Note Comments: PT IS REQUESTING A CALL BACK TO DISCUSS THE STATUS OF PAPERWORK FAXED OVER REGARDING HIS HANDICAPPED PLATE, PLEASE REFER TO PRIOR NOTE DATED 08/05/2023. PT CAN BE REACHED AT ABOVE #. /radhames/ LEXX GAITAN VISN1 [facility] AMSA Signed: 08/31/2023 14:34 Receipt Acknowledged By: 09/01/2023 15:33 /es/ LENNOX PEARCE RN REGISTERED NURSE 09/02/2023 09:11 /es/ HOOD MIKE LPN LPN 09/01/2023 ADDENDUM STATUS: COMPLETED CONTATCED AND HE REPORTS THAT HIS FEET GO NUMB AFTER HE WALKS FOR A BIT, AND HE HAS TO SIT DOWN. HE IS ALSO REQUESTING A CANE. [facility]. /radhames/ HOOD MIKE LPN LPN Signed: 09/01/2023 14:26 LXEX GAITAN [place] [facility] [facility]
--- OUTSIDE RECORDS SUMMARY | 2024-06-01 14:05 | XMS_ITS | Encounter Summary ---
Author Name [place] Address [address] [place] [address] Care Team Providers Care Roofing Superintendent Name Role Phone MARGARITA FLOREZ Primary Care [...] Relationship to Policy Bejarano ALVA BEN[place] OF [place] MEDICARE SUPPLEMEN [facility] Dec 13, 2013 [id number] [phone] DAGMAR,ZIA ERT PATIENT [place]BS [place] MEDICARE SUPPLEMEN [facility] November 06, 2007 [id number] DAGMAR,ZIA ERT PATIENT [place] MEDICARE SUPPLEMEN [facility] MEDEX 2 November 06, 2007 [id number] DAGMAR,ZIA ERT PATIENT [place] MED[place] SUPPLEMEN [facility]EX 2 November 06, 2007 [id number] [phone] DAGMAR,ZIA ERT PATIENT BCBS OF [facility] MEDICARE SUPPLEMEN [facility] Dec 13, 2013 [id number] DAGMAR,ZIA ERT PATIENT [facility] MEDICARE SUPPLEMEN [facility]/ WHITM AN/MX Dec 13, 2008 [id number] DAGMAR,ZIA ERT PATIENT MEDICARE (WNR) MEDICARE () PART B May 15, 2012 PART B [id number] DAGMAR,ZIA ERT PATIENT MEDICARE (WNR) MEDICARE () PART A May 15, 2002 PART A [id number] DAGMAR,ZIA ERT PATIENT MEDICARE (WNR) MEDICARE () PART A May 15, 2002 PART A [id number] DAGMAR,ZIA ERT PATIENT MEDICARE (WNR) MEDICARE () PART B May 15, 2002 PART B [id number] [phone] DAGMAR,ZIA ERT PATIENT MEDICARE (WNR) MEDICARE () PART A May 15, 2002 PART A [id number] [phone] DAGMAR,ZIA ERT PATIENT MEDICARE (WNR) MEDICARE () PART B May 15, 2002 PART B [id number] DAGMAR,ZIA ERT PATIENT MEDICARE (WNR) MEDICARE () PART A May 15, 2002 PART A [id number] DAGMAR,ZIA ERT PATIENT MEDICARE (WNR) MEDICARE () PART B May 15, 2002 PART B [id number] [phone] DAGMAR,ZIA ERT PATIENT Selected [...] PRIMARY Sensorineural hearing loss, bilateral CAMINITI,[place] E [place] [facility] Plan of Treatment: Future Appointments (+ 6 months) and Future Tests (+/- 45 days) The Plan of Treatment section includes future care activities for the [facility] [place] [facility] This section includes future appointments and future orders which are active, pending or scheduled. Future Appointments This section includes appointments that were scheduled to occur 6 months from the date of the Encounter, up to a maximum of 20 appointments. The data comes from all [place] treatment facilities. Appointment Date/Time Appointment Type Appointme nt Facility Name Sep 07, 2023 03:00 PM AMBULATORY - REHAB MEDICIN E [place] [facility] [facility] Sep 15, 2023 11:00 AM [facility]INE [facility] Sep 16, 2023 01:00 PM AMBULATORY - MEDICINE [place] [facility] Sep 18, 2023 10:30 AM AMBULATORY - REHAB MEDICIN E [place] Sep 23, 2023 01:00 PM [facility] - [facility]ICINE [facility] Sep 23, 2023 01:15 PM [facility] Sep 30, 2023 03:00 PM [facility] Sep 30, 2023 03:15 PM [facility] Oct 13, 2023 01:00 PM AMBULATORY - MEDICINE [place] C [place] [facility] October 16, 2023 01:00 PM AMBULATORY - MEDICINE [place] C [place] [facility] Dec 15, 2023 02:30 PM [facility] - MEDICINE [facility] Dec 30, 2023 03:00 PM [facility] Social History: Smoking Status (Most current) and Tobacco Use (All prior to encounter date) This section includes the most current, and the historical, smoking and tobacco- related health factors from the [place] facility where the Encounter took place. Current Smoking Status This section includes the most current smoking, or tobacco-related health factor, from the [place] facility where the Encounter took place. Date/Time Current Smoking Status Comment Jesus fall Apr 15, 2022 01:00 PM [facility]TOBACCO [facility] Encounter Notes: All associated encounter notes [...] at 3pm, RTC placed. /radhames/ Anastacia JUAREZ, [facility]-A STAFF DIE FINISHER FORGING Signed: 08/07/2023 14:49 Receipt Acknowledged By: 08/07/2023 15:08 /osvaldo CRUZ ADVANCED BURGLAR ALARM OPERATOR 08/19/2023 ADDENDUM STATUS: COMPLETED Hearing aids received and certified, upcoming appointment scheduled on 09/07/2023. /radhames/ JES GUDINO [facility] Parimutuel Clerk Signed: 08/19/2023 15:11 [place] [facility]
--- OUTSIDE RECORDS SUMMARY | 2024-06-01 14:05 | XMS_ITS | Encounter Summary ---
Author Name Department [place] Address [address] [place] [address] Care Team Providers Care Stick Welder Name Role Phone MARGARITA FLOREZ Primary Care [...] Policy Bejarano [place] [facility] Dec 13, 2013 [id number] DAGMAR,ZIA ERT PATIENT BCBS [place] MEDICARE SUPPLEMEN [facility] November 06, 2007 [id number] DAGMAR,ZIA ERT PATIENT [place]BS [place] MEDIC[place] SUPPLEMEN [facility]EX 2 November 06, 2007 [id number] DAGMAR,ZIA ERT PATIENT [place]BS [place] MED[place] SUPPLEMEN [facility] MEDEX 2 November 06, 2007 [id number] [phone] DAGMAR,ZIA ERT PATIENT BCBS OF [facility] MEDICARE SUPPLEMEN [facility] Dec 13, 2013 [id number] DAGMAR,ZIA ERT PATIENT [place] SUPPLEMEN [facility]/ WHITM AN/MX Dec 13, 2008 [id number] [phone] DAGMAR,ZIA ERT PATIENT MEDICARE (WNR) MEDICARE () PART B May 15, 2012 PART B [id number] [phone] DAGMAR,ZIA ERT PATIENT MEDICARE (WNR) MEDICARE () PART A May 15, 2002 PART A [id number] DAGMAR,ZIA ERT PATIENT MEDICARE (WNR) MEDICARE (M) PART B May 15, 2002 PART B [id number] DAGMAR,ZIA ERT PATIENT MEDICARE (WNR) MEDICARE () PART A May 15, 2002 PART A [id number] [phone] DAGMAR,ZIA ERT PATIENT MEDICARE (WNR) MEDICARE () PART B May 15, 2002 PART B [id number] [phone] DAGMAR,ZIA ERT PATIENT MEDICARE (WNR) MEDICARE () PART A May 15, 2002 PART A [id number] DAGMAR,ZIA ERT PATIENT MEDICARE (WNR) MEDICARE () PART B May 15, 2002 PART B [id number] [phone] DAGMAR,ZIA ERT PATIENT MEDICARE (WNR) MEDICARE () PART A May 15, 2002 PART A [id number] DAGMAR,ZIA ERT PATIENT Selected Encounter This [...] - MEDICINE [place] C [place] [facility] Sep 18, 2023 10:30 AM AMBULATORY - REHAB MEDICIN E [place] Sep 23, 2023 01:00 PM AMBULATORY - MEDICINE [place] Sep 23, 2023 01:15 PM AMBULATORY - MEDICINE [place] Sep 30, 2023 03:00 PM AMBULATORY - MEDICINE [place] Sep 30, 2023 03:15 PM AMBULATORY - MEDICINE [place] Oct 13, 2023 01:00 PM AMBULATORY - MEDICINE [place] [facility] October 16, 2023 01:00 PM AMBULATORY - MEDICINE [place] [facility] Dec 15, 2023 02:30 PM [facility] Dec 30, 2023 03:00 PM AMBULATORY - MEDICINE [place] [facility] Mar 02, 2024 03:00 PM [facility] Lab Results: +/- 30 days of the encounter This section includes the Chemistry and Hematology Lab Results on record with [place] for the patient. Radiology Reports and Pathology Reports are provided separately, in subsequent sections. Lab Results This section contains the Chemistry/Hematology Results that were resulted 30 days before or 30 daysafter the date of the Encounter. Date/Time Source Result Type Result - Unit Interpretation Reference Range Comment Sep 23, 2023 01:35 PM [place] COVID-19 FLU/RSV DIAGNOSTIC PANEL Speci men Type: NASOPHARYNX Comment: This test is authorized for emergency use only. False negative results may occur if virus is present at levels below the analytical limit of detection.Nega tive results do not preclude SARS-CoV-2, influenza or RSV infection and should not be used as the sole basis for treatment or other patient management decisions.[facility] mone FLUVID: HCPs: https://www.fd a.gov/media/ 4567/download. Patients: https://www.[employer] a.gov/media/ 0344/download Ordering Provider: CHATO ADHIKARI Report Released Date/Time: Sep 23, 2023 01:14 PM Reporting Lab: [address] [address] Performing Lab: [address] [address] COVID-19 PCR (FLUVID) NEGATIVE NEGATIVE FLU A PCR (FLUVID) NEGATIVE FLU B PCR (FLUVID) NEGATIVE RSV PCR (FLUVID) NEGATIVE Sep 16, 2023 01:56 PM [facility] HEMOGLOBIN A1C PANEL Specimen Type: BLOOD [...] Sep 16, 2023 01:09 PM Reporting Lab: [address] [address] Performing Lab: [address] [address] HEMOGLOBIN A1C 6.8 H 4.0-5.6 Sep 16, 2023 01:56 PM [facility] BASIC METABOLIC PANEL (non-fasting) Specimen Type: SERUM No comment entered. Ordering Provider: NIK GILL Report Released Date/Time: Sep 16, 2023 01:09 PM Reporting Lab: [address] [address] Performing Lab: [address] [address] UREA NITROGEN 25 mg/dL 7-25 GLUCOSE 234 mg/dL H 65-100 SODIUM 140 mmol/L 135-145 POTASSIUM 5.0 mmol/L 3.5-5.0 CHLORIDE 106 mmol/L 100-110 CO2 23 meq/L 20-30 CREATININE, Serum 1.80 mg/dL H 0.50-1.40 eGFR(CKD-EPI 2020) 36 mL/min L >60 Sep 16, 2023 01:56 PM [facility] CBC Specimen Type: BLOOD No comment entered. Ordering Provider: NIK GILL Report Released Date/Time: Sep 16, 2023 01:09 PM Reporting Lab: [facility] [address] [address] Performing Lab: [facility] [address] [address] WBC 7.86 10*3/uL 4.50-11.00 RBC 4.28 10*6/uL [...] 15, 2022 01:00 PM VA-TOBACCO NEVER USED [facility] Radiology Reports: +/- 30 days of [...] the Encounter. The data comes from all [place] treatment facilities. Date/Time Radiology Report Provider Source Sep 24, 2023 03:11 PM CHEST (2 VIEWS): ORLY LEAVITT [id number] -1935 M Exm Date: SEP 24, 2023@15:11 Req Phys: CHATO ADHIKARI Loc: CWM/SO/SICK CALL BRIDGE CRANE OPERATOR (Req'g Loc Img Loc: [facility]/BUILDING 1 Service: Unknown (Case [id number] COMPLETE) CHEST (2 VIEWS) (RAD Detailed) CPT:04242 Reason for Study: wheezing, cough, SOB Clinical History: Covering resident, fellow, BRIDGE CRANE OPERATOR or attending: Chato Adhikari NP [place] Pager: [phone] Backup pager: History: Report Status: Verified Date Reported: SEP 24, 2023 Date Verified: SEP 24, 2023 Vegetable Grader E-Sig:/RADHAMES/LATRICE DUNBAR JR Report: Study: PA and [...] Primary Interpreting Staff: LATRICE DUNBAR JR, Radiologist (Vegetable Grader) /LATRICE BAGLEY JR [facility] Encounter Notes: All associated encounter [...] AUTHOR: JES PALMER COSIGNER: URGENCY: STATUS: COMPLETED Developer Designer called [facility] regarding setting up an appointment for his Compensation and Pension Exam. Developer Designer made the following contact attempts: 1) 09/06 @ 1339 (Left Message) 2) 09/08 @ 1007 (Left Message) 3) 09/09 @ 0842 (Left Message) Developer Designer will continue to try and get ahold of the [facility] to set up an appointment. /radhames/ JES PALMER ADVANCED FRAME STRIPPER AND CRUSHER Signed: 09/10/2023 08:45 JES PALMER CNTRL [facility]
--- OUTSIDE RECORDS SUMMARY | 2024-06-01 14:05 | XMS_ITS ---
Author Name Department [place] Organization [place] Address [address] [place] [address] Care Team Providers Care Electrical Repairer Name Role Phone MARGARITA FLOREZ Primary Care [...] Bejarano's Name Patient's Relationship to Policy Bejarano LAVA BCBS OF [place] MEDICARE [facility] Dec 13, 2013 [id number] [phone] DAGMAR,ZIA ERT PATIENT BCBS [place] MEDICARE SUPPLEMEN [facility] November 06, 2007 [id number] [phone] DAGMAR,ZIA ERT PATIENT [place]BS [place] MED[place] SUPPLEMEN [facility] MEDEX 2 November 06, 2007 [id number] DAGMAR,ZIA ERT PATIENT [place] MED[place] SUPPLEMEN [facility] MEDEX 2 November 06, 2007 [id number] DAGMAR,ZIA ERT PATIENT BCBS OF [facility] MEDICARE SUPPLEMEN [facility] Dec 13, 2013 [id number] [phone] DAGMAR,ZIA ERT PATIENT [place] SUPPLEMEN [facility]/ WHITM AN/MX Dec 13, 2008 [id number] DAGMAR,ZIA ERT PATIENT MEDICARE (WNR) MEDICARE () PART B May 15, 2012 PART B [id number] DAGMAR,ZIA ERT PATIENT MEDICARE (WNR) MEDICARE () PART A May 15, 2002 PART A [id number] DAGMAR,ZIA ERT PATIENT MEDICARE (WNR) MEDICARE (M) PART B May 15, 2002 PART B [id number] DAGMAR,ZIA ERT PATIENT MEDICARE (WNR) MEDICARE () PART A May 15, 2002 PART A [id number] [phone] DAGMAR,ZIA ERT PATIENT MEDICARE (WNR) MEDICARE () PART B May 15, 2002 PART B [id number] [phone] DAGMAR,ZIA ERT PATIENT MEDICARE (WNR) MEDICARE () PART A May 15, 2002 PART A [id number] DAGMAR,ZIA ERT PATIENT MEDICARE (WNR) MEDICARE () PART B May 15, 2002 PART B [id number] DAGMAR,ZIA ERT PATIENT MEDICARE (WNR) MEDICARE () PART A May 15, 2002 PART A [id number] DAGMAR,ZIA ERT PATIENT Selected Encounter This section includes the information on record at [place] for the Encounter. Date/Time Encounter Type Encounter [...] 20 appointments. The data comes from all [place] treatment facilities. Appointment Date/Time Appointment Type Appointme nt Facility Name Aug 05, 2023 01:00 PM AMBULATORY - MEDICINE [place] [facility] Aug 07, 2023 02:00 PM AMBULATORY - REHAB MEDICIN E [place] [facility] [place] [facility] Sep 07, 2023 03:00 PM AMBULATORY - REHAB MEDICIN E [place] [place] [facility] Sep 15, 2023 11:00 AM AMBULATORY - MEDICINE [facility] Sep 16, 2023 01:00 PM AMBULATORY - MEDICINE [place] [facility] Sep 18, 2023 10:30 AM AMBULATORY - REHAB MEDICIN E [place] Sep 23, 2023 01:00 PM AMBULATORY - MEDICINE [facility] Sep 23, 2023 01:15 PM AM[facility]UL[facility]ORY - MEDICINE [facility] Sep 30, 2023 03:00 [facility]23 03[facility]15 [facility] Oct 13, 2023 01:00 PM AMBULATORY - MEDICINE [place] [facility] October 16, 2023 01:00 PM AMBULATORY - MEDICINE [place] [facility] Dec 15, 2023 02:30 PM AMBULATORY - MEDICINE [facility] Dec 30, 2023 03:00 PM AMBULATORY - MEDICINE [place] [facility] Social History: Smoking Status (Most current) and Tobacco Use (All prior to encounter date) This section includes the most current, and the historical, smoking and tobacco- related health factors from the [place] facility where the Encounter took place. Current Smoking Status This section includes the most current smoking, or tobacco-related health factor, from the [place] facility where the Encounter took place. Date/Time Current Smoking Status Comment Facil juan david Apr 15, 2022 01:00 PM VA-TOBACCO NEVER USED [place] [facility]L [place] [facility] Encounter Notes: All associated encounter notes This [...] Filed: 09/01/2023 by: MAXIMILIAN ARCEO CNTRL W[facility]
--- OUTSIDE RECORDS SUMMARY | 2024-06-01 14:05 | XMS_ITS | Encounter Summary ---
Author Name [place] Address [address] [place] [address] Care Team Providers Care Agricultural Crop Farm Manager Name Role Phone MARGARITA FLOREZ Primary [...] Policy Bejarano ALVA [place] OF [place] MEDICARE SUPP[facility] Dec 13, 2013 [id number] DAGMAR,ZIA ERT PATIENT BCBS [place] MEDICARE SUPPLEMEN [facility] November 06, 2007 [id number] DAGMAR,ZIA ERT PATIENT [place] SUPPLEMEN [facility] MEDEX 2 November 06, 2007 [id number] DAGMAR,ZIA ERT PAT[place] SUPP[place] MEDEX 2 November 06, 2007 [id number] [phone] DAGMAR,ZIA ERT PATIENT BCBS OF [facility] MEDICARE SUPPLEMEN [facility] Dec 13, 2013 [id number] [phone] DAGMAR,ZIA ERT PATIENT BCBS OF [facility] MEDICARE SUPPLEMEN [facility] MMHG/ WHITM AN/MX Dec 13, 2008 [id number] DAGMAR,ZIA ERT PATIENT MEDICARE (WNR) MEDICARE () PART B May 15, 2012 PART B [id number] DAGMAR,ZIA ERT PATIENT MEDICARE (WNR) MEDICARE () PART A May 15, 2002 PART A [id number] [phone] DAGMAR,ZIA ERT PATIENT MEDICARE (WNR) MEDICARE () PART A May 15, 2002 PART A [id number] DAGMAR,ZIA ERT PATIENT MEDICARE (WNR) MEDICARE () PART B May 15, 2002 PART B [id number] DAGMAR,ZIA ERT PATIENT MEDICARE (WNR) MEDICARE () PART A May 15, 2002 PART A [id number] DAGMAR,ZIA ERT PATIENT MEDICARE (WNR) MEDICARE () PART B May 15, 2002 PART B [id number] [id number] DAGMAR,ZIA ERT PATIENT MEDICARE (WNR) MEDICARE () PART A May 15, 2002 PART A [id number] DAGMAR,ZIA ERT PATIENT MEDICARE (WNR) MEDICARE () PART B May 15, 2002 PART B [id number] DAGMAR,ZIA ERT PATIENT Selected Encounter This [...] 17, 2023 08:30 AM AM[place]ULATORY - [place]IC[place] [facility] Jun 22, 2023 09:00 AM AM[place]UL[place]ORY [place] [facility] Aug 05, 2023 01:00 PM AMBULATORY - MEDICINE [place] [facility] Aug 07, 2023 02:00 PM AMBULATORY - REHAB MEDICIN E [place] [facility] [place] [facility] Sep 07, 2023 03:00 PM AMBULATORY - REHAB MEDICIN E [place] [facility] [place] [facility] Sep 15, 2023 11:00 AM AMBULATORY - MEDICINE [facility] Sep 16, 2023 01:00 PM AM[place]ORY [place]INE [place] [facility] Sep 18, 2023 10:30 AM AMBULATORY - REHAB MEDICIN E [place] Sep 23, 2023 01:00 PM [facility] Sep 23, 2023 01:15 PM [facility]ULAT[facility] - MEDICINE [facility] Sep 30, 2023 03:00 PM [facility] Sep 30, 2023 03:15 PM AMBULATORY - MEDICINE [facility] Oct 13, 2023 01:00 PM AM[place]UL[place]ORY [place]INE [place] [facility] October 16, 2023 01:00 PM [facility] [place] [facility] [place] [facility] Lab Results: +/- 30 days [...] Range Comment May 27, 2023 01:06 PM [place] MAGNESIUM Specimen Type: SERUM No comment entered. Ordering Provider: MARGARITA DIAMOND Report Released Date/Time: May 11, 2023 01:25 PM Reporting Lab: [place] [address] [place] [address] Performing Lab: [facility] [address] [address] MAGNESIUM 1.3 mg/dL L 1.6-2.6 May 27, 2023 01:06 PM [place] BASIC METABOLIC PANEL (non-fasting) Spe cimen Type: SERUM No comment entered. Ordering Provider: MARGARITA DIAMOND Report Released Date/Time: May 11, 2023 01:25 PM Reporting Lab: [facility] [address] [facility] [address] Performing Lab: [facility] [address] [facility] [address] UREA NITROGEN 32 mg/dL H 7-25 GLUCOSE [...] 15, 2022 01:00 PM VA-TOBACCO NEVER USED [facility]
--- OUTSIDE RECORDS SUMMARY | 2024-06-01 14:05 | XMS_ITS | Encounter Summary ---
Author Name [place] Address [address] [place] [address] Care Team Providers Care Apparel Machinery Instructor Name Role Phone MARGARITA FLOREZ Primary [...] Relationship to Policy Bejarano [place] [facility] Dec 13, 2013 [id number] DAGMAR,ZIA ERT PATIENT [place] MEDICARE SUPPLEMEN [facility] November 06, 2007 [id number] [phone] DAGMAR,ZIA ERT PATIENT [place] SUPPLEMEN [place] MEDEX 2 November 06, 2007 [id number] DAGMAR,ZIA ERT PATIENT [place] SUPPLEMEN [place] MEDEX 2 November 06, 2007 [id number] [phone] DAGMAR,ZIA ERT PATIENT BCBS OF [facility] MEDICARE SUPPLEMEN [facility] Dec 13, 2013 [id number] DAGMAR,ZIA ERT PAT[place] SUPPLEMEN [place] MMHG/ WHITM AN/MX Dec 13, 2008 [id number] [phone] DAGMAR,ZIA ERT PATIENT MEDICARE (WNR) MEDICARE () PART B May 15, 2012 PART B [id number] DAGMAR,ZIA ERT PATIENT MEDICARE (WNR) MEDICARE () PART A May 15, 2002 PART A [id number] DAGMAR,ZIA ERT PATIENT MEDICARE (WNR) MEDICARE (M) PART B May 15, 2002 PART B [id number] [phone] DAGMAR,ZIA ERT PATIENT MEDICARE (WNR) MEDICARE () PART A May 15, 2002 PART A [id number] DAGMAR,ZIA ERT PATIENT MEDICARE (WNR) MEDICARE () PART B May 15, 2002 PART B [id number] DAGMAR,ZIA ERT PATIENT MEDICARE (WNR) MEDICARE () PART A May 15, 2002 PART A [id number] [phone] DAGMAR,ZIA ERT PATIENT MEDICARE (WNR) MEDICARE () PART B May 15, 2002 PART B [id number] [phone] DAGMAR,ZIA ERT PATIENT MEDICARE (WNR) MEDICARE () PART A May 15, 2002 PART A [id number] [phone] DAGMAR,ZIA ERT PATIENT Selected Encounter This section includes the information on record at [place] for the Encounter. Date/Time Encounter Type Encounter Description Reason Provider Source Jul 13, 2023 09:27 AM POS AIRWAY PRESSURE CPAP TELEPHONE/MEDICIN E ICD-10-CM G47.33 Obstructive sleep apnea (adult) (pediatric) RANJITH FIELDS [place] Encounter Template Text not used by [place] Assessments - Encounter Diagnoses This section includes the primary and secondary diagnoses documented for the Encounter. Date/Time Primary/Secondary Diagnosis Diagnosis Name Provider Source Jul 13, 2023 09:27 AM PRIMARY Obstructive sleep apnea (adult) (pediatric) RANJITH FIELDS [facility] Plan of Treatment: Future Appointments (+ 6 months) and Future Tests (+/- 45 days) The Plan of Treatment section includes future care activities for the patient from all [place] [facility]. This section includes future appointments and future orders which are active, pending or scheduled. Future Appointments This section includes appointments that were scheduled to occur 6 months from the date of the Encounter, up to a maximum of 20 appointments. The data comes from all [facility] facilities. Appointment Date/Time Appointment Type Appointme nt Facility Name Aug 05, 2023 01:00 PM [facility] [place] [facility] Aug 07, 2023 02:00 PM [facility] Sep 07, 2023 03:00 PM AMBULATORY - RE[facility]AB MEDIC[facility] E [facility] Sep 15, 2023 11:00 AM AMBULATORY - MEDICINE [facility] Sep 16, 2023 01:00 PM AMBULATORY - MEDICINE [facility] NTRL W[facility] Sep 18, 2023 10:30 AM AMBULATORY - REHAB MEDICIN E [place] Sep 23, 2023 01:00 PM AMBULATORY - MEDICINE [facility] Sep 23, 2023 01:15 PM AMBULATORY - MEDICINE [facility] Sep 30, 2023 03:00 PM AMBULATORY - MEDICINE [facility] Sep 30, 2023 03:15 PM AMBULATORY - MEDICINE [facility] Oct 13, 2023 01:00 PM AM[place]ORY [place] [facility] October 16, 2023 01:00 PM AMBULATORY - MEDICINE [place] [facility] Dec 15, 2023 02:30 PM AMBULATORY - MEDICINE [facility] Dec 30, 2023 03:00 PM AMBULATORY - MEDICINE [facility] Social History: Smoking Status (Most [...] COSIGNER: URGENCY: STATUS: COMPLETED Attempted to contact Binford, dx with DAMIEN, for cpap follow up and left message for him to c/b with any questions or concerns. /es/ RANJITH FIELDS CRT RESPIRATORY THERAPIST Signed: 07/13/2023 09:29 RANJITH FIELDSFIELD
--- OUTSIDE RECORDS SUMMARY | 2024-06-01 14:05 | XMS_ITS ---
Author Name [place] Address [address] [place] [address] Care Team Providers Care Architectural Intern Name Role Phone MARGARITA FLOREZ Primary Care [...] Relationship to Policy Bejarano AL[place] [facility] Dec 13, 2013 [id number] DAGMAR,ZIA ERT PATIENT [place] SUPPLEMEN [facility] November 06, 2007 [id number] DAGMAR,ZIA ERT PATIENT [place] SUPPLEMEN [facility] MEDEX 2 November 06, 2007 [id number] [phone] DAGMAR,ZIA ERT PATIENT [place] SUPPLEMEN [place] MEDEX 2 November 06, 2007 [id number] DAGMAR,ZIA ERT PATIENT BCBS OF [facility] MEDICARE SUPPLEMEN [facility] Dec 13, 2013 [id number] [phone] DAGMAR,ZIA ERT PATIENT [place] SUPP[place]MEN [place] MMHG/ WHITM AN/MX Dec 13, 2008 [id number] [phone] DAGMAR,ZIA ERT PATIENT MEDICARE (WNR) MEDICARE () PART B May 15, 2012 PART B [id number] DAGMAR,ZIA ERT PATIENT MEDICARE (WNR) MEDICARE () PART A May 15, 2002 PART A [id number] [phone] DAGMAR,ZIA ERT PATIENT MEDICARE (WNR) MEDICARE (M) PART B May 15, 2002 PART B [id number] DAGMAR,ZIA ERT PATIENT MEDICARE (WNR) MEDICARE () PART A May 15, 2002 PART A [id number] [phone] DAGMAR,ZIA ERT PATIENT MEDICARE (WNR) MEDICARE () PART B May 15, 2002 PART B [id number] DAGMAR,ZIA ERT PATIENT MEDICARE (WNR) MEDICARE () PART A May 15, 2002 PART A [id number] DAGMAR,ZIA ERT PATIENT MEDICARE (WNR) MEDICARE () PART B May 15, 2002 PART B [id number] DAGMAR,ZIA ERT PATIENT MEDICARE (WNR) MEDICARE () PART A May 15, 2002 PART A [id number] DAGMAR,ZIA ERT PATIENT Selected Encounter This section includes the information on record at [place] for the Encounter. Date/Time Encounter Type Encounter Description Reason Pro vider Source Aug 05, 2023 02:41 PM Outpatient Encounter PRIMARY CARE/MEDICINE IHE Encounter [...] MEDICIN E [place] [facility] Sep 07, 2023 03:00 PM AMBULATORY - REHAB MEDICIN E [place] [facility] Sep 15, 2023 11:00 AM AMBULATORY - MEDICINE SPR[facility] Sep 16, 2023 01:00 PM AMBULATORY - MEDICINE [place] [facility] Sep 18, 2023 10:30 AM AMBULATORY - REHAB MEDICIN E [place] Sep 23, 2023 01:00 PM [facility] Sep 23, 2023 01:15 PM [facility] Sep 30, 2023 03:00 PM [facility] Sep 30, 2023 03:15 PM AMBULATORY - MEDICINE [facility] Oct 13, 2023 01:00 PM AMBULATORY - MEDICINE [place] [facility] October 16, 2023 01:00 PM AMBULATORY - MEDICINE [place] [facility] Dec 15, 2023 02:30 PM AMBULATORY - MEDICINE [facility] Dec 30, 2023 03:00 PM AMBULATORY - MEDICINE [place] C [facility] Vital Signs: All taken on the encounter date This section contains inpatient and outpatient Vital Signs collected on the date of the Encounter. Date/Time Temperature Pulse Blood Pressure Respiratory Rate SP02 Pain Height Weight Body Mass Index Source Aug 05, 2023 01:45 PM 220 32 [place] [facility] Social History: Smoking Status (Most current) [...] 15, 2022 01:00 PM VA-TOBACCO [facility] Encounter Notes: All associated encounter notes This section contains the clinical notes associated to the Encounter. Date/Time Encounter Note(s) Provider Source Aug 05, 2023 02:41 PM ADMINISTRATIVE NOT E: LOCAL TITLE: FAX/MAIL RECEIVED STANDARD TITLE: ADMINISTRATIVE NOTE DATE OF NOTE: AUG 05, 2023@14:41 ENTRY DATE: AUG 05, 2023@14:41:52 AUTHOR: RUPERT MITCHELL COSIGNER: URGENCY: STATUS: COMPLETED FAX/MAIL RECEIVED Has ADDENDA Document Received On: Jul Document Type: Other: ELISABETH.FOR DISABLED PARKING PLACARD/PLATE Date of Service: Jul Facility and or Provider: [facility]. [facility] Contact Information: PCP of Record: MARGARITA FLOREZ Next visit with PCP: 08/07/2023 14:00 CWM/NO/AUDIOLOGY/DIAGNOST 09/16/2023 13:00 CWM/SO/PHARM/PACT 2 09/30/2023 15:00 CWM/SO/PODIATRY/ROSS 10/13/2023 13:00 NHM/OPTOMETRY/DALE 10/20/2023 15:00 CWM/SO/PACT 5 Primary Care May keep copies of this document for up to 14 days and send the original for scanning. 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 [facility] APPLICATION FOR DISABLED PARKING PLACARD/PLATE IN PACT 5 PROVIDER'S MAILBOX FOR REVIEW. /osvaldo MITCHELL ADVANCED MESH MAN Signed: 08/05/2023 14:44 DARSHANA MITCHELL
--- OUTSIDE RECORDS SUMMARY | 2024-06-01 14:06 | XMS_ITS | Encounter Summary ---
Author Name [facility] [place] Organization [place] Address [address] [place] [id number] Care Team Providers Care Support Analyst Name Role Phone MARGARITA FLOREZ Primary Care [...] Policy Bejarano [place] [facility] Dec 13, 2013 [id number] [phone] DAGMAR,ZIA ERT PATIENT [place]BS [place] MEDICARE SUPPLEMEN [facility] November 06, 2007 [id number] [phone] DAGMAR,ZIA ERT PATIENT [place]BS [place] MEDICARE SUPPLEMEN [facility]EX 2 November 06, 2007 [id number] [phone] DAGMAR,ZIA ERT PAT[place] SUPP[place] [facility] 2 November 06, 2007 [id number] DAGMAR,ZIA ERT PATIENT BCBS OF [facility] MEDICARE SUPPLEMEN [facility] Dec 13, 2013 [id number] DAGMAR,ZIA ERT PATIENT [place] SUPPLEMEN [facility] MMHG/ WHITM AN/MX Dec 13, 2008 [id number] DAGMAR,ZIA ERT PATIENT MEDICARE (WNR) MEDICARE () PART B May 15, 2012 PART B [id number] DAGMAR,ZIA ERT PATIENT MEDICARE (WNR) MEDICARE () PART A May 15, 2002 PART A [id number] DAGMAR,ZIA ERT PATIENT MEDICARE (WNR) MEDICARE () PART A May 15, 2002 PART A [id number] DAGMAR,ZIA ERT PATIENT MEDICARE (WNR) MEDICARE () PART B May 15, 2002 PART B [id number] DAGMAR,ZIA ERT PATIENT MEDICARE (WNR) MEDICARE () PART A May 15, 2002 PART A [id number] DAGMAR,ZIA ERT PATIENT MEDICARE (WNR) MEDICARE () PART B May 15, 2002 PART B [id number] DAGMAR,ZIA ERT PATIENT MEDICARE (WNR) MEDICARE () PART A May 15, 2002 PART A [id number] [phone] DAGMAR,ZIA ERT PATIENT MEDICARE (WNR) MEDICARE () PART B May 15, 2002 PART B [id number] DAGMAR,ZIA ERT PATIENT Selected Encounter This section includes the information on record at AL for the Encounter. Date/Time Encounter Type Encounter Description Reason Provider Source Sep 16, 2023 01:00 PM MTMS BY PHARM ADDL 15 MIN CLINICAL PHARMACY ICD-10-CM E11.8 Type 2 diabetes mellitus with unspecified complications TAMMY GILL [facility] Encounter Template Text not used by AL Assessments - Encounter Diagnoses This section includes the primary and secondary diagnoses documented for the Encounter. Date/Time Primary/Secondary Diagnosis Diagnosis Name Provider Source Sep 17, 2023 03:18 PM PRIMARY Type 2 diabetes mellitus with unspecified complications NIK GILL [facility] Plan of Treatment: Future Appointments (+ 6 months) and Future Tests (+/- 45 days) The Plan of Treatment section includes future care activities for the patient from all [facility]. This section includes future appointments and future orders which are active, pending or scheduled. Future Appointments This section includes appointments that were scheduled to occur 6 months from the date of the Encounter, up to a maximum of 20 appointments. The data comes from all [place] treatment facilities. Appointment Date/Time Appointment Type Appointme nt Facility Name Sep 18, 2023 10:30 AM AMBULATORY - REHAB [facility] Sep 23, 2023 01:00 PM [facility] Sep 23, 2023 01:15 PM [facility] Sep 30, 2023 03:00 PM [facility] Sep 30, 2023 03:15 PM [facility] Oct 13, 2023 01:00 PM AMBULATORY - MEDICINE [place] [facility] [place] [facility] October 16, 2023 01:00 PM AMBULATORY - MEDICINE [place] [facility] [place] [facility] Dec 15, 2023 02:30 PM [facility] Dec 30, 2023 03:00 PM AMBULATORY - MEDICINE [place] [facility] [place] [facility] Mar 02, 2024 03:00 PM [facility] Lab Results: +/- 30 days of the encounter This section includes the Chemistry and Hematology Lab Results on record with AL for the patient. Radiology Reports and Pathology Reports are provided separately, in subsequent sections. Lab Results This section contains the Chemistry/Hematology Results that were resulted 30 days before or 30 daysafter the date of the Encounter. Date/Time Source Result Type Result - Unit Interpretation Reference Range Comment Sep 23, 2023 01:35 PM [facility] COVID-19 FLU/RSV DIAGNOSTIC PANEL Speci men Type: NASOPHARYNX Comment: This test is authorized for emergency use only. False negative results may occur if virus is present at levels below the analytical limit of detection.Nega tive results do not preclude SARS-CoV-2, influenza or RSV infection and should not be used as the sole basis for treatment or other patient management decisions.[facility] mone FLUVID: HCPs: https://www.fd a.gov/media/10 8335/download. Patients: https://www.ActiveRain a.gov/media/14 0336/download Ordering Provider: CHATO ADHIKARI Report Released Date/Time: Sep 23, 2023 01:14 PM Reporting Lab: [address] [address] Performing Lab: [address] [address] COVID-19 PCR (FLUVID) NEGATIVE NEGATIVE FLU A PCR (FLUVID) NEGATIVE FLU B PCR (FLUVID) NEGATIVE RSV PCR (FLUVID) NEGATIVE Sep 16, 2023 01:56 PM [facility] HEMOGLOBIN A1C PANEL Specimen Type: BLOOD [...] 16, 2023 01:09 PM Reporting Lab: [address] [address] Performing Lab: [address] [address] HEMOGLOBIN A1C 6.8 H 4.0-5.6 Sep 16, 2023 01:56 PM [facility] BASIC METABOLIC PANEL (non-fasting) Specimen Type: SERUM No comment entered. Ordering Provider: NIK GILL Report Released Date/Time: Sep 16, 2023 01:09 PM Reporting Lab: [address] [address] Performing Lab: [address] [address] UREA NITROGEN 25 mg/dL 7-25 GLUCOSE 234 mg/dL H 65-100 SODIUM 140 mmol/L 135-145 POTASSIUM 5.0 mmol/L 3.5-5.0 CHLORIDE 106 mmol/L 100-110 CO2 23 meq/L 20-30 CREATININE, Serum 1.80 mg/dL H 0.50-1.40 eGFR(CKD-EPI 2020) 36 mL/min L >60 Sep 16, 2023 01:56 PM [facility] CBC Specimen Type: BLOOD No comment entered. Ordering Provider: NIK GILL Report Released Date/Time: Sep 16, 2023 01:09 PM Reporting Lab: [facility] [address] [facility] [address] Performing Lab: [facility] [address] [facility] [address] WBC 7.86 10*3/uL 4.50-11.00 RBC 4.28 10*6/uL [...] and tobacco- related health factors from the AL facility where the Encounter took place. Current Smoking Status This section includes the most current smoking, or tobacco-related health factor, from the AL facility where the Encounter took place. Date/Time Current Smoking Status Comment Jesus fall Apr 28, 2023 03:00 PM AL-TOBACCO NEVER USED [facility] Tobacco Use History This section includes a history of the smoking, or tobacco-related health factors, that were collected on or before the date of the Encounter. The data comes from the AL facility where the Encounter took place. Date/Time Smoking Status/Tobacco Use Comment Laney kirkpatrick Apr 09, 2021 10:00 AM AL-TOBACCO NEVER USED [facility] Mar 13, 2020 12:30 PM VA-TOBACCO NEVER USED [facility] Feb 02, 2018 02:02 PM AL-TOBACCO NEVER USED [facility] Mar 10, 2017 01:57 PM LIFETIME NON-TOBACCO USER [facility] Feb 11, 2016 02:44 PM LIFETIME NON-TOBACCO USER [facility] May 09, 2009 09:43 AM LIFETIME NON-TOBACCO USER [facility] Radiology Reports: +/- 30 days of the [...] the Encounter. The data comes from all [place] treatment facilities. Date/Time Radiology Report Provider Source Sep 24, 2023 03:11 PM CHEST (2 VIEWS): ORLY LEAVITT [id number] -1935 M Exm Date: SEP 24, 2023@15:11 Req Phys: CHATO ADHIKARI Loc: CWM/SO/SICK CALL MULE DEVELOPER (Req'g Loc Img Loc: [facility]/BUILDING 1 Service: Unknown (Case [id number] COMPLETE) CHEST (2 VIEWS) (RAD Detailed) CPT:47347 Reason for Study: wheezing, cough, SOB Clinical History: Covering resident, fellow, MULE DEVELOPER or attending: Chato Adhikari NP [place] Pager: [phone] Backup pager: History: Report Status: Verified Date Reported: SEP 24, 2023 Date Verified: SEP 24, 2023 Dump Operator E-Sig:/ES/LATRICE DUNBAR JR Report: Study: PA [...] Primary Interpreting Staff: LATRICE DUNBAR JR, Radiologist (Dump Operator) /LATRICE BAGLEY JR [facility] Encounter Notes: All associated encounter notes [...] the visit w/ his dtr Mindi (tel# [phone]). Pt states he is doing well. He [...] Pt has had 6 stents placed. Pt's manager integration Dr. Flannery in [place]. Dr. Ríos is the dice manager on the outside. Pt lives w/ his Per consult from PCP pt is interested in obtaining sensor from the AL. Target Goals: A1C: 7%; FB-130 mg/dL; 2HRS PP <180mg/dL. Allergies: COLCHICINE/PROBENECID PERTINENT INFORMATION: Active problems - Computerized Problem List is the source for the followin. Obstructive Sleep Apnea of Adult (SCT [id number]) 2. Prostate Cancer ([facility] [id number]) 3. Chronic kidney disease stage 3 4. Low Back Pain * 5. Vitamin B 12 Deficiency 6. 2009: Colonoscopy: Polypectomy 7. 11-08-09: PFT: Normal 8. Abdominal aortic aneurysm (SNOMED CT 190065378) 9. Benign essential hypertension (SNOMED CT 6147990) 10. Venous insufficiency of leg (SNOMED CT 974797056) 11. Other dyspnea and respiratory abnormality 12. Coronary arteriosclerosis (SNOMED CT 63933657) 13. CAD: 2005:PTCA 5 TaxusStents: LADx2 RCAx2 Prox RCA x1 14. Gout 15. Hyperglycemia due to type 2 diabetes mellitus (SNOMED CT 401610266472837) 16. Gastroesophageal Reflux Disorder 17. Hyperlipidemia (SNOMED CT 69474451) 18. 1957: 2 rt inguinal hernia repair/[place] 19. 1969: Lipoma Removal 20. Tonsillectomy and Adenoidectomy (under age 12) 21. FAM HX-[facility] HEART DIS Objective: Diabetes Medication Regimen: -- metformin 500 mg bid - decreased d/t CKD -eGFR [facility] 07/2022 31ml/min -eGFR AL 09/16/23: 36ml/min -- semaglutide 1 mg weekly [...] (Wednesdays) - switched over to semagluitde at AL - glipizide - stopped 04/2023 Adherence: Oral [...] is requesting to obtain it from the AL. Per above note, pt does not wish to transition to basal/bolus regimen due to too high complexity and too many injections. Informed the pt that AL currently only has vials of novolog mix 70/30 - as the pens are on geomagnetician's backorder. Reviewed w/ pt and dtr how to use vial and syringe. Pt's dtr works in medical field is very well familiar how to perform injections using vials and syringes. Pt and dtr were able to demonstrate back to the technical proposal writer how to use it. Will order it + syringes pt to picking machine operator at the pharmacy window [...] w/ and dtr. f/up end of June. [place] adn dtr received written instructions. Date: 09/16/23 [...] 20 units TDD: 48 units - Reviewed AL lab results - Monitor for s/sx hypoglycemia [...] of Preventive Care: Most recent visit to preschool assistant teacher: @ [place]; seen by Dr. Reyes 2 weeks ago; Most recent visit to optometry:@[place]; last visit in 2021: 1. Diabetes mellitus [...] monitor and assess /es/ TARUN GILL CLINICAL SHUTTLE INSPECTOR Signed: 09/17/2023 15:19 Receipt Acknowledged By: 09/21/2023 11:30 /es/ MARGARITA FLOREZ MD PHYSICIAN 11/05/2023 ADDENDUM STATUS: COMPLETED pt's dtr Mindi called stating pt is out of ozempic. There are currently no refills left. Rx has been renewed for mail per pt's request. Mindi's phone nubmer: [phone] /radhames/ TARUN GILL CLINICAL SHUTTLE INSPECTOR Signed: 11/05/2023 08:01 TARUN GILL [facility]
--- OUTSIDE RECORDS SUMMARY | 2024-06-01 14:06 | XMS_ITS | Encounter Summary ---
Author Name [place] Organization [place] Address [address] [place] [address] Care Team Providers Care Leather Drier Name Role Phone MARGARITA FLOREZ Primary Care [...] Policy Bejarano [place] [facility] Dec 13, 2013 [id number] DAGMAR,ZIA ERT PATIENT BCBS [place] MEDICARE SUPPLEMEN [facility] November 06, 2007 [id number] DAGMAR,ZIA ERT PATIENT [place] MED[place] SUPPLEMEN [facility] MEDEX 2 November 06, 2007 [id number] [phone] DAGMAR,ZIA ERT PATIENT [place] SUPPLEMEN [facility] MEDEX 2 November 06, 2007 [id number] DAGMAR,ZIA ERT PATIENT BCBS OF [facility] MEDICARE SUPPLEMEN [facility] Dec 13, 2013 [id number] DAGMAR,ZIA ERT PATIENT [place] SUPPLEMEN [facility] MMHG/ WHITM AN/MX Dec 13, 2008 [id number] DAGMAR,ZIA ERT PATIENT MEDICARE (WNR) MEDICARE () PART B May 15, 2012 PART B [id number] DAGMAR,ZIA ERT PATIENT MEDICARE (WNR) MEDICARE () PART A May 15, 2002 PART A [id number] DAGMAR,ZIA ERT PATIENT MEDICARE (WNR) MEDICARE () PART A May 15, 2002 PART A [id number] [phone] DAGMAR,ZIA ERT PATIENT MEDICARE (WNR) MEDICARE () PART B May 15, 2002 PART B [id number] DAGMAR,ZIA ERT PATIENT MEDICARE (WNR) MEDICARE () PART A May 15, 2002 PART A [id number] [phone] DAGMAR,ZIA ERT PATIENT MEDICARE (WNR) MEDICARE () PART B May 15, 2002 PART B [id number] DAGMAR,ZIA ERT PATIENT MEDICARE (WNR) MEDICARE () PART A May 15, 2002 PART A [id number] DAGMAR,ZIA ERT PATIENT MEDICARE (WNR) MEDICARE () PART B May 15, 2002 PART B [id number] [phone] DAGMAR,ZIA ERT PATIENT Selected Encounter This [...] - MEDICINE [place] [facility] [place] [facility] Sep 18, 2023 10:30 AM AMBULATORY - [facility] [facility] [place] Sep 23, 2023 01:00 PM [facility] Sep 23, 2023 01:15 PM [facility] Sep 30, 2023 03:00 PM [facility] Sep 30, 2023 03:15 PM [facility] Oct 13, 2023 01:00 PM AMBULATORY - MEDICINE [facility] [place] [facility] October 16, 2023 01:00 PM AMBULATORY - MEDICINE [facility] [place] [facility] Dec 15, 2023 02:30 PM AM[facility]ULATORY [facility] Dec 30, 2023 03:00 PM AMBULATORY - MEDICINE [place] [facility] [place] [facility] Mar 02, 2024 03:00 PM AM[facility]ULATORY [facility] Lab Results: +/- 30 days of [...] Range Comment Sep 23, 2023 01:35 PM [place] COVID-19 FLU/RSV DIAGNOSTIC PANEL Speci men Type: NASOPHARYNX Comment: This test is authorized for emergency use only. False negative results may occur if virus is present at levels below the analytical limit of detection.Nega tive results do not preclude SARS-CoV-2, influenza or RSV infection and should not be used as the sole basis for treatment or other patient management decisions.[facility] mone FLUVID: HCPs: https://www.fd a.gov/media/ 8666/download. Patients: https://www.Emerging Travel a.gov/media/ 1439/download Ordering Provider: CHATO ADHIKARI Report Released Date/Time: Sep 23, 2023 01:14 PM Reporting Lab: [facility] [address] [facility] [address] Performing Lab: [facility] [address] [facility] [address] COVID-19 PCR (FLUVID) NEGATIVE NEGATIVE FLU A PCR (FLUVID) NEGATIVE FLU B PCR (FLUVID) NEGATIVE RSV PCR (FLUVID) NEGATIVE Sep 16, 2023 01:56 PM [facility] HEMOGLOBIN A1C PANEL Specimen Type: BLOOD [...] Sep 16, 2023 01:09 PM Reporting Lab: [address] [address] Performing Lab: [address] [address] HEMOGLOBIN A1C 6.8 H 4.0-5.6 Sep 16, 2023 01:56 PM [facility] BASIC METABOLIC PANEL (non-fasting) Specimen Type: SERUM No comment entered. Ordering Provider: NIK GILL Report Released Date/Time: Sep 16, 2023 01:09 PM Reporting Lab: [address] [address] Performing Lab: [address] [address] UREA NITROGEN 25 mg/dL 7-25 GLUCOSE 234 mg/dL H 65-100 SODIUM 140 mmol/L 135-145 POTASSIUM 5.0 mmol/L 3.5-5.0 CHLORIDE 106 mmol/L 100-110 CO2 23 meq/L 20-30 CREATININE, Serum 1.80 mg/dL H 0.50-1.40 eGFR(CKD-EPI 2020) 36 mL/min L >60 Sep 16, 2023 01:56 PM [facility] CBC Specimen Type: BLOOD No comment entered. Ordering Provider: NIK GILL Report Released Date/Time: Sep 16, 2023 01:09 PM Reporting Lab: [facility] [address] [facility] [address] Performing Lab: [facility] [address] [facility] [address] WBC 7.86 10*3/uL 4.50-11.00 RBC 4.28 10*6/uL [...] 15, 2022 01:00 PM VA-TOBACCO NEVER USED [facility] Radiology Reports: +/- 30 days of [...] 03:11 PM CHEST (2 VIEWS): ORLY LEAVITT [id number] -1935 M Exm Date: SEP 24, 2023@15:11 Req Phys: CHATO ADHIKARI Pat Loc: CWM/SO/SICK CALL PROPOSAL WRITER (Req'g Loc Img Loc: [facility]/BUILDING 1 Service: Unknown (Case 377 COMPLETE) CHEST (2 VIEWS) (RAD Detailed) CPT:93708 Reason for Study: wheezing, cough, SOB Clinical History: Covering resident, fellow, PROPOSAL WRITER or attending: Chato Adhikari NP [place] Pager: [phone] Backup pager: History: Report Status: Verified Date Reported: SEP 24, 2023 Date Verified: SEP 24, 2023 Combination Worker E-Sig:/ES/LATRICE DUNBAR JR Report: Study: PA [...] Primary Interpreting Staff: LATRICE DUNBAR JR, Radiologist (Combination Worker) /LATRICE BAGLEY JR [place] [facility] Encounter Notes: All associated encounter notes [...] full rights to use it throughout the [place] system. PRIMARY SCREEN RESULT: The Primary Screen [...]
--- OUTSIDE RECORDS SUMMARY | 2024-06-01 14:06 | XMS_ITS | Encounter Summary ---
Author Name [place] Address [address] [place] [address] Care Team Providers Care Bench Boring Machine Operator Name Role Phone MARGARITA FLOREZ [...] Relationship to Policy Bejarano ALVA BCBS OF [place] MEDICARE [facility] Dec 13, 2013 [id number] DAGMAR,ZIA ERT PATIENT [place]BS [place] MEDICARE SUPPLEMEN [facility] November 06, 2007 [id number] [phone] DAGMAR,ZIA ERT PATIENT [place]BS [place] MEDIC[place] SUPPLEMEN [facility] November 06, 2007 [id number] [phone] DAGMAR,ZIA ERT PAT[place] SUPPLEMEN [facility] 2 November 06, 2007 [id number] DAGMAR,ZIA ERT PATIENT BCBS OF [facility] Dec 13, 2013 [id number] DAGMAR,ZIA ERT PATIENT [place] SUPPLEMEN [facility] MMHG/ WHITM AN/MX Dec 13, 2008 [id number] [phone] DAGMAR,ZIA ERT PATIENT MEDICARE (WNR) MEDICARE () PART B May 15, 2012 PART B [id number] DAGMAR,ZIA ERT PATIENT MEDICARE (WNR) MEDICARE () PART A May 15, 2002 PART A [id number] DAGMAR,ZIA ERT PATIENT MEDICARE (WNR) MEDICARE () PART A May 15, 2002 PART A [id number] [phone] DAGMAR,ZIA ERT PATIENT MEDICARE (WNR) MEDICARE () PART B May 15, 2002 PART B [id number] DAGMAR,ZIA ERT PATIENT MEDICARE (WNR) MEDICARE () PART A May 15, 2002 PART A [id number] [phone] DAGMAR,ZIA ERT PATIENT MEDICARE (WNR) MEDICARE () PART B May 15, 2002 PART B [id number] DAGMAR,ZIA ERT PATIENT MEDICARE (WNR) MEDICARE () PART A May 15, 2002 PART A [id number] [phone] DAGMAR,ZIA ERT PATIENT MEDICARE (WNR) MEDICARE () PART B May 15, 2002 PART B [id number] DAGMAR,ZIA ERT PATIENT Selected Encounter This [...] abnormalities of gait and mobility BEBETO AREVALO [place] Plan of Treatment: Future Appointments (+ 6 months) and Future Tests (+/- 45 days) The Plan of Treatment section includes future care activities for the patient from all [place] [facility]. This section includes future appointments and future orders which are active, pending or scheduled. Future Appointments This section includes appointments that were scheduled to occur 6 months from the date of the Encounter, up to a maximum of 20 appointments. The data comes from all [facility] facilities. Appointment Date/Time Appointment Type Appointme nt Facility Name Sep 23, 2023 01:00 PM [facility] Sep 23, 2023 01[facility]15 PM [facility] Sep 30, 2023 03:00 PM [facility] Sep 30, 2023 03:15 PM [facility] Oct 13, 2023 01:00 PM AMBULATORY - MEDICINE [facility] October 16, 2023 01:00 PM AMBULATORY - MEDICINE [facility]L [facility] [place] [facility] Dec 15, 2023 02:30 PM [facility]INE [facility] Dec 30, 2023 03:00 PM [facility]ULAT[facility] - [facility]ICINE [facility] Mar 02, 2024 03:00 PM AMBULATORY [...] Range Comment Sep 23, 2023 01:35 PM [place] COVID-19 FLU/RSV DIAGNOSTIC PANEL Speci men Type: NASOPHARYNX Comment: This test is authorized for emergency use only. False negative results may occur if virus is present at levels below the analytical limit of detection.Nega tive results do not preclude SARS-CoV-2, influenza or RSV infection and should not be used as the sole basis for treatment or other patient management decisions.[facility] mone FLUVID: HCPs: https://www.fd a.gov/media/ 0630/download. Patients: https://www.GameMix a.gov/media/ 7386/download Ordering Provider: CHATO ADHIKARI Report Released Date/Time: Sep 23, 2023 01:14 PM Reporting Lab: [facility] [address] [facility] [address] Performing Lab: [address] [address] COVID-19 PCR (FLUVID) NEGATIVE NEGATIVE FLU A PCR (FLUVID) NEGATIVE FLU B PCR (FLUVID) NEGATIVE RSV PCR (FLUVID) NEGATIVE Sep 16, 2023 01:56 PM [facility] HEMOGLOBIN A1C PANEL Specimen Type: BLOOD [...] 16, 2023 01:09 PM Reporting Lab: [address] [address] Performing Lab: [address] [address] HEMOGLOBIN A1C 6.8 H 4.0-5.6 Sep 16, 2023 01:56 PM [facility] BASIC METABOLIC PANEL (non-fasting) Specimen Type: SERUM No comment entered. Ordering Provider: NIK GILL Report Released Date/Time: Sep 16, 2023 01:09 PM Reporting Lab: [address] [address] Performing Lab: [address] [address] UREA NITROGEN 25 mg/dL 7-25 GLUCOSE 234 mg/dL H 65-100 SODIUM 140 mmol/L 135-145 POTASSIUM 5.0 mmol/L 3.5-5.0 CHLORIDE 106 mmol/L 100-110 CO2 23 meq/L 20-30 CREATININE, Serum 1.80 mg/dL H 0.50-1.40 eGFR(CKD-EPI 2020) 36 mL/min L >60 Sep 16, 2023 01:56 PM [facility] CBC Specimen Type: BLOOD No comment entered. Ordering Provider: NIK GILL Report Released Date/Time: Sep 16, 2023 01:09 PM Reporting Lab: [facility] [address] [facility] [address] Performing Lab: [facility] [address] [facility] [address] WBC 7.86 10*3/uL 4.50-11.00 RBC 4.28 10*6/uL [...] Jesus fall Apr 28, 2023 03:00 PM [place]-TOBACCO NEVER USED [place] Tobacco Use History This section includes a history of the smoking, or tobacco-related health factors, that were collected on or before the date of the Encounter. The data comes from the [place] facility where the Encounter took place. Date/Time Smoking Status/Tobacco Use Comment F acility Apr 09, 2021 10:00 AM [place]-TOBACCO NEVER USED [place] Mar 13, 2020 12:30 PM [place]-TOBACCO NEVER USED [place] Feb 02, 2018 02:02 PM VA-TOBACCO NEVER USED [place] Mar 10, 2017 01:57 PM LIFETIME NON-TOBACCO USER [place] Feb 11, 2016 02:44 PM LIFETIME NON-TOBACCO USER [place] May 09, 2009 09:43 AM LIFETIME NON-TOBACCO USER [place] Radiology Reports: +/- 30 days of the [...] 03:11 PM CHEST (2 VIEWS): ORLY LEAVITT [id number] -[id number] M Exm Date: SEP 24, 2023@15:11 Req Phys: CHATO ADHIKARI Loc: CWM/SO/SICK CALL LEGAL TECHNICIAN (Req'g Loc Img Loc: [facility] 1 Service: Unknown (Case [id number] COMPLETE) CHEST (2 VIEWS) (RAD Detailed) CPT:50636 Reason for Study: wheezing, cough, SOB Clinical History: Covering resident, fellow, LEGAL TECHNICIAN or attending: Chato Adhikari NP [place] Pager: [phone] Backup pager: History: Report Status: Verified Date Reported: SEP 24, 2023 Date Verified: SEP 24, 2023 Bench Manager E-Sig:/ES/LATRICE DUNBAR JR Report: Study: PA and [...] Primary Interpreting Staff: LATRICE DUNBAR JR, Radiologist (Bench Manager) /LATRICE BAGLEY JR [place] [facility] Encounter Notes: All associated encounter [...] Physical Therapist Signed: 09/18/2023 10:58 LEE AREVALO [facility]
--- OUTSIDE RECORDS SUMMARY | 2024-06-01 14:06 | XMS_ITS | Encounter Summary ---
Author Name [place] Address [address] [place] [address] Care Team Providers Care Revenue Agent Name Role Phone MARGARITA FLOREZ Primary Care [...] Relationship to Policy Bejarano ALVA [place] OF [place] [facility] Dec 13, 2013 [id number] [phone] DAGMAR,ZIA ERT PATIENT [place]BS [place] MED[place]ARE SUPPLEMEN [facility] November 06, 2007 [id number] DAGMAR,ZIA ERT PATIENT [place] MED[place] SUPPLEMEN [facility] 2 November 06, 2007 [id number] [phone] DAGMAR,ZIA ERT PAT[place] SUPPLEMEN [facility] 2 November 06, 2007 [id number] [phone] DAGMAR,ZIA ERT PATIENT BCBS OF [facility] MEDICARE SUPPLEMEN [facility] Dec 13, 2013 [id number] [phone] DAGMAR,ZIA ERT PATIENT [place] MED[place] SUPPLEMEN [facility] MMHG/ WHITM AN/MX Dec 13, 2008 [id number] DAGMAR,ZIA ERT PATIENT MEDICARE (WNR) MEDICARE () PART B May 15, 2012 PART B [id number] [phone] DAGMAR,ZIA ERT PATIENT MEDICARE (WNR) MEDICARE () PART A May 15, 2002 PART A [id number] DAGMAR,ZIA ERT PATIENT MEDICARE (WNR) MEDICARE (M) PART B May 15, 2002 PART B [id number] [phone] DAGMAR,ZIA ERT PATIENT MEDICARE (WNR) MEDICARE () PART A May 15, 2002 PART A [id number] DAGMAR,ZIA ERT PATIENT MEDICARE (WNR) MEDICARE () PART B May 15, 2002 PART B [id number] [phone] DAGMAR,ZIA ERT PATIENT MEDICARE (WNR) MEDICARE () PART A May 15, 2002 PART A [id number] DAGMAR,ZIA ERT PATIENT MEDICARE (WNR) MEDICARE () PART B May 15, 2002 PART B [id number] [phone] DAGMAR,ZIA ERT PATIENT MEDICARE (WNR) MEDICARE () PART A May 15, 2002 PART A [id number] [phone] DAGMAR,ZIA ERT PATIENT Selected Encounter This section includes the information on record at [place] for the Encounter. Date/Time Encounter Type Encounter Description Reason Pro vider Source Sep 17, 2023 03:19 PM Outpatient Encounter CLINICAL PHARMACY [facility] Encounter Template Text not used by [place] Plan of Treatment: Future Appointments (+ 6 [...] 20 appointments. The data comes from all [place] treatment facilities. Appointment Date/Time Appointment Type Appointme nt Facility Name Sep 18, 2023 10:30 AM AMBULATORY - RE[facility]AB [facility] [place] Sep 23, 2023 01:00 PM [facility] Sep 23, 2023 01:15 PM [facility] Sep 30, 2023 03:00 PM [facility] Sep 30, 2023 03:15 PM [facility] [place] Oct 13, 2023 01:00 PM AM[place]UL[place] [facility] October 16, 2023 01:00 PM AMBULATORY - [place]IC[place] [facility] Dec 15, 2023 02:30 PM [facility] Dec 30, 2023 03:00 PM AM[place]IC[place] [facility] Mar 02, 2024 03:00 PM AM[facility]ULATORY [facility] MED[facility]INE [facility] Lab Results: +/- 30 days of the encounter This section includes the Chemistry and Hematology Lab Results on record with [place] for the patient. Radiology Reports and Pathology Reports are provided separately, in subsequent sections. Lab Results This section contains the Chemistry/Hematology Results that were resulted 30 days before or 30 daysafter the date of the Encounter. Date/Time Source Result Type Result - Unit Interpretation Reference Range Comment Sep 23, 2023 01:35 PM [place] COVID-19 FLU/RSV DIAGNOSTIC PANEL Speci men Type: NASOPHARYNX Comment: This test is authorized for emergency use only. False negative results may occur if virus is present at levels below the analytical limit of detection.Nega tive results do not preclude SARS-CoV-2, influenza or RSV infection and should not be used as the sole basis for treatment or other patient management decisions.[facility] mone FLUVID: HCPs: https://www.fd a.gov/media/ 4763/download. Patients: https://www.Lezu365 a.gov/media/ 079/download Ordering Provider: SAMREEN ADHIKARI Report Released Date/Time: Sep 23, 2023 01:14 PM Reporting Lab: [facility] [place] [address] [address] Performing Lab: [place] [address] [address] COVID-19 PCR (FLUVID) NEGATIVE NEGATIVE FLU A PCR (FLUVID) NEGATIVE FLU B PCR (FLUVID) NEGATIVE RSV PCR (FLUVID) NEGATIVE Sep 16, 2023 01:56 PM [facility] HEMOGLOBIN A1C PANEL Specimen Type: BLOOD [...] Sep 16, 2023 01:09 PM Reporting Lab: [address] [address] Performing Lab: [address] [address] HEMOGLOBIN A1C 6.8 H 4.0-5.6 Sep 16, 2023 01:56 PM [facility] BASIC METABOLIC PANEL (non-fasting) Specimen Type: SERUM No comment entered. Ordering Provider: NIK GILL Report Released Date/Time: Sep 16, 2023 01:09 PM Reporting Lab: [address] [address] Performing Lab: [address] [address] UREA NITROGEN 25 mg/dL 7-25 GLUCOSE 234 mg/dL H 65-100 SODIUM 140 mmol/L 135-145 POTASSIUM 5.0 mmol/L 3.5-5.0 CHLORIDE 106 mmol/L 100-110 CO2 23 meq/L 20-30 CREATININE, Serum 1.80 mg/dL H 0.50-1.40 eGFR(CKD-EPI 2020) 36 mL/min L >60 Sep 16, 2023 01:56 PM [facility] CBC Specimen Type: BLOOD No comment entered. Ordering Provider: NIK GILL Report Released Date/Time: Sep 16, 2023 01:09 PM Reporting Lab: [facility] [address] [facility] [address] Performing Lab: [facility] [address] [facility] [address] WBC 7.86 10*3/uL 4.50-11.00 RBC 4.28 10*6/uL [...] and tobacco- related health factors from the [place] facility where the Encounter took place. Current Smoking Status This section includes the most current smoking, or tobacco-related health factor, from the [place] facility where the Encounter took place. Date/Time Current Smoking Status Comment Facil ity Apr 15, 2022 01:00 PM VA-TOBACCO NEVER USED [facility] Radiology Reports: +/- 30 days of [...] the Encounter. The data comes from all [place] treatment facilities. Date/Time Radiology Report Provider Source Sep 24, 2023 03:11 PM CHEST (2 VIEWS): ORLY LEAVITT [id number] -1935 M Ex Date: SEP 24, 2023@15:11 Req Phys: SAMREEN ADHIKARI Loc: CWM/SO/SICK CALL CLIENT RELATIONSHIP CONSULTANT (Req'g Loc Img Loc: [facility] 1 Service: Unknown (Case [id number] COMPLETE) CHEST (2 VIEWS) (RAD Detailed) CPT:47476 Reason for Study: wheezing, cough, SOB Clinical History: Covering resident, fellow, CLIENT RELATIONSHIP CONSULTANT or attending: Samreen Adhikari NP [place] Pager: [phone] Backup pager: History: Report Status: Verified Date Reported: SEP 24, 2023 Date Verified: SEP 24, 2023 Extrusion Supervisor E-Sig:/ES/LATRICE DUNBAR JR Report: Study: PA [...] Primary Interpreting Staff: LATRICE DUNBAR JR, Radiologist (Extrusion Supervisor) /LATRICE BAGLEY JR [place] [facility] Encounter Notes: All associated encounter [...] Documentation:Sep Please see attached scanned document in [employer] [place]. /radhames/ TARUN GILL CLINICAL SLAT BASKET MAKER MACHINE Signed: 09/17/2023 15:20 TARUN GILL [place]
--- OUTSIDE RECORDS SUMMARY | 2024-06-01 14:07 | XMS_ITS | Encounter Summary ---
Author Name Department [place] Address [address] [place] [address] Care Team Providers Care Activities Attendant Name Role Phone MARGARITA FLOREZ Primary Care [...] Policy Bejarano ALVA [place] OF [place] [facility] Dec 13, 2013 [id number] DAGMAR,ZIA ERT PATIENT [place] MEDICARE SUPPLEMEN [facility] November 06, 2007 [id number] DAGMAR,ZIA ERT [place] SUPPLEMEN [facility] 2 November 06, 2007 [id number] DAGMAR,ZIA ERT PATIENT [place] SUPPLEMEN [facility] 2 November 06, 2007 [id number] DAGMAR,ZIA ERT PATIENT BCBS OF [facility] MEDICARE SUPPLEMEN [facility] Dec 13, 2013 [id number] DAGMAR,ZIA ERT PATIENT [place] SUPPLEMEN [facility] MMHG/ WHITM AN/MX Dec 13, 2008 [id number] DAGMAR,ZIA ERT PATIENT MEDICARE (WNR) MEDICARE () PART B May 15, 2012 PART B [id number] DAGMAR,ZIA ERT PATIENT MEDICARE (WNR) MEDICARE () PART A May 15, 2002 PART A [id number] [phone] DAGMAR,ZIA ERT PATIENT MEDICARE (WNR) MEDICARE (M) PART B May 15, 2002 PART B [id number] DAGMAR,ZIA ERT PATIENT MEDICARE (WNR) MEDICARE () PART A May 15, 2002 PART A [id number] DAGMAR,ZIA ERT PATIENT MEDICARE (WNR) MEDICARE () PART B May 15, 2002 PART B [id number] DAGMAR,ZIA ERT PATIENT MEDICARE (WNR) MEDICARE () PART A May 15, 2002 PART A [id number] DAGMAR,ZIA ERT PATIENT MEDICARE (WNR) MEDICARE () PART B May 15, 2002 PART B [id number] DAGMAR,ZIA ERT PATIENT MEDICARE (WNR) MEDICARE () PART A May 15, 2002 PART A [id number] DAGMAR,ZIA ERT PATIENT Selected [...] 2023 01:06 PM SECONDARY Cough, unspecified ADILENEKIP [facility] Plan of Treatment: Future Appointments (+ 6 months) and Future Tests (+/- 45 days) The Plan of Treatment section includes future care activities for the patient from all [place] [facility]. This section includes future appointments and [...] 2023 03:00 PM [facility] Sep 30, 2023 03:15 PM [facility]ICINE [facility] Oct 13, 2023 01:00 PM [facility]ORY MEDICINE [facility] October 16, 2023 01:00 PM AMBULATORY MEDICINE [facility] [place] [facility] Dec 15, 2023 02:30 PM [facility] - MEDICINE [facility] Dec 30, 2023 03:00 PM AMBULATORY - MEDICINE [facility] [place] [facility] Mar 02, 2024 03:00 PM [...] Range Comment Sep 23, 2023 01:35 PM [facility] COVID-19 FLU/RSV DIAGNOSTIC PANEL Speci men Type: [...] [facility] mone FLUVID: HCPs: https://www.fd a.gov/media/ 8120/download. Patients: https://www.[employer] a.gov/media/ 928/download Ordering Provider: CHATO ADHIKARI Report Released Date/Time: Sep 23, 2023 01:14 PM Reporting Lab: [address] [address] Performing Lab: [address] [address] COVID-19 PCR (FLUVID) NEGATIVE NEGATIVE FLU A PCR (FLUVID) NEGATIVE FLU B PCR (FLUVID) NEGATIVE RSV PCR (FLUVID) NEGATIVE Sep 16, 2023 01:56 PM [facility] HEMOGLOBIN A1C PANEL Specimen Type: BLOOD Comment: [...] Sep 16, 2023 01:09 PM Reporting Lab: [address] [address] Performing Lab: [address] [address] HEMOGLOBIN A1C 6.8 H 4.0-5.6 Sep 16, 2023 01:56 PM [facility] BASIC METABOLIC PANEL (non-fasting) Specimen Type: SERUM No comment entered. Ordering Provider: NIK GILL Report Released Date/Time: Sep 16, 2023 01:09 PM Reporting Lab: [address] [address] Performing Lab: [address] [address] UREA NITROGEN 25 mg/dL 7-25 GLUCOSE 234 mg/dL H 65-100 SODIUM 140 mmol/L 135-145 POTASSIUM 5.0 mmol/L 3.5-5.0 CHLORIDE 106 mmol/L 100-110 CO2 23 meq/L 20-30 CREATININE, Serum 1.80 mg/dL H 0.50-1.40 eGFR(CKD-EPI 2020) 36 mL/min L >60 Sep 16, 2023 01:56 PM [facility] CBC Specimen Type: BLOOD No comment entered. Ordering Provider: NIK GILL Report Released Date/Time: Sep 16, 2023 01:09 PM Reporting Lab: [facility] [address] [facility] [address] Performing Lab: [facility] [address] [facility] [address] WBC 7.86 10*3/uL 4.50-11.00 RBC 4.28 10*6/uL [...] Jesus fall Apr 28, 2023 03:00 PM [place]-TOBACCO NEVER USED [facility] Tobacco Use History This section includes a history of the smoking, or tobacco-related health factors, that were collected on or before the date of the Encounter. The data comes from the [place] facility where the Encounter took place. Date/Time Smoking Status/Tobacco Use Comment F acility Apr 09, 2021 10:00 AM [place]-TOBACCO NEVER USED [place] Mar 13, 2020 12:30 PM [place]-TOBACCO NEVER USED [place] Feb 02, 2018 02:02 PM [place]-TOBACCO NEVER USED [place] Mar 10, 2017 01:57 PM LIFETIME NON-TOBACCO USER [place] Feb 11, 2016 02:44 PM LIFETIME NON-TOBACCO USER [place] May 09, 2009 09:43 AM LIFETIME NON-TOBACCO USER [place] Radiology Reports: +/- 30 days of the [...] 03:11 PM CHEST (2 VIEWS): ORLY LEAVITT [id number] -1935 M Exm Date: SEP 24, 2023@15:11 Req Phys: CHATO ADHIKARI Loc: CWM/SO/SICK CALL VICE PRESIDENT INDUSTRIAL RELATIONS (Req'g Loc Img Loc: [facility] 1 Service: Unknown (Case [id number] COMPLETE) CHEST (2 VIEWS) (RAD Detailed) CPT:01611 Reason for Study: wheezing, cough, SOB Clinical History: Covering resident, fellow, VICE PRESIDENT INDUSTRIAL RELATIONS or attending: Chato Adhkiari NP [place] Pager: [phone] Backup pager: History: Report Status: Verified Date Reported: SEP 24, 2023 Date Verified: SEP 24, 2023 Photovoltaic Solar Cell Designer E-Sig:/ES/LATRICE DUNBAR JR Report: Study: PA [...] Primary Interpreting Staff: LATRICE DUNBAR JR, Radiologist (Photovoltaic Solar Cell Designer) /LATRICE BAGLEY JR [place] CNT [facility] Encounter Notes: All associated encounter [...] ACTIVE UNITS SUBCUTANEOUSLY 27 Total Medications Action: [place] reports to sick call with daughter Mindi ([phone]) with reports of respiratory symptoms. Symptoms began [...] to R/O Covid/Flu/RSV referred to Chato Adhikari VICE PRESIDENT INDUSTRIAL RELATIONS for evaluation. Reminders Advance Directive Screen AD May 07 Medication Reconciliation DUE NOW COVID-19 Immunization DUE NOW /es/ KIP HEAD RN PRIMARY CARE RN Signed: 09/23/2023 15:32 [place]IP [place]
--- OUTSIDE RECORDS SUMMARY | 2024-06-01 14:07 | XMS_ITS | Encounter Summary ---
Author Name [facility] [place] Address [address] [place] [address] Care Team Providers Care Entry Level Account Representative Name Role Phone MARGARITA FLOREZ Primary Care [...] Policy Bejarano ALVA [place] [facility] Dec 13, 2013 [id number] [phone] DAGMAR,ZIA ERT PATIENT [place] MED[place]ARE SUPPLEMEN [facility] November 06, 2007 [id number] DAGMAR,ZIA ERT PAT[place] SUPPLEMEN [facility] 2 November 06, 2007 [id number] DAGMAR,ZIA ERT PAT[place] SUPP[place]MEN [facility] 2 November 06, 2007 [id number] [phone] DAGMAR,ZIA ERT PATIENT BCBS OF [facility] MEDICARE SUPPLEMEN [facility] Dec 13, 2013 [id number] DAGMAR,ZIA ERT PATIENT [place] SUPPLEMEN [facility] MMHG/ WHITM AN/MX Dec 13, 2008 [id number] DAGMAR,ZIA ERT PATIENT MEDICARE (WNR) MEDICARE () PART B May 15, 2012 PART B [id number] [phone] DAGMAR,ZIA ERT PATIENT MEDICARE (WNR) MEDICARE () PART A May 15, 2002 PART A [id number] [phone] DAGMAR,ZIA ERT PATIENT MEDICARE (WNR) MEDICARE () PART A May 15, 2002 PART A [id number] [phone] DAGMAR,ZIA ERT PATIENT MEDICARE (WNR) MEDICARE () PART B May 15, 2002 PART B [id number] DAGMAR,ZIA ERT PATIENT MEDICARE (WNR) MEDICARE () PART A May 15, 2002 PART A [id number] DAGMAR,IZA ERT PATIENT MEDICARE (WNR) MEDICARE () PART B May 15, 2002 PART B [id number] DAGMAR,ZIA ERT PATIENT MEDICARE (WNR) MEDICARE () PART A May 15, 2002 PART A [id number] [phone] [phone] DAGMAR,ZIA ERT PATIENT MEDICARE (WNR) MEDICARE () PART B May 15, 2002 PART B [id number] DAGMAR,ZIA ERT PATIENT Selected Encounter This section includes the information on record at [place] for the Encounter. Date/Time Encounter Type Encounter [...] 03:52 PM PRIMARY Cough, unspecified ADILENE,KIP K [place] Plan of Treatment: Future Appointments (+ 6 months) and Future Tests (+/- 45 days) The Plan of Treatment section includes future care activities for the patient from [facility] [place] [facility] This section includes future appointments and future orders which are active, pending or scheduled. Future Appointments This section includes appointments that were scheduled to occur 6 months from the date of the Encounter, up to a maximum of 20 appointments. The data comes from all [facility] facilities. Appointment Date/Time Appointment Type Appointme nt Facility Name Oct 13, 2023 01:00 PM AMBULATORY - MEDICINE [facility] [place] [facility] October 16, 2023 01:00 PM AMBULATORY - MEDICINE [facility] [place] [facility] Dec 15, 2023 02:30 PM AMBULATORY - MEDICINE [facility] Dec 30, 2023 03:00 PM AMBULATORY - MEDICINE [facility] [place] [facility] Mar 02, 2024 03:00 PM AMBULATORY - MEDICINE [facility] Lab Results: +/- 30 days of the encounter This section includes the Chemistry and Hematology Lab Results on record with [place] for the patient. Radiology Reports and Pathology Reports are provided separately, in subsequent sections. Lab Results This section contains the Chemistry/Hematology Results that were resulted 30 days before or 30 daysafter the date of the Encounter. Date/Time Source Result Type Result - Unit Interpretation Reference Range Comment Sep 23, 2023 01:35 PM [place] COVID-19 FLU/RSV DIAGNOSTIC PANEL Speci men Type: NASOPHARYNX Comment: This test is authorized for emergency use only. False negative results may occur if virus is present at levels below the analytical limit of detection.Nega tive results do not preclude SARS-CoV-2, influenza or RSV infection and should not be used as the sole basis for treatment or other patient management decisions.[facility] mone FLUVID: HCPs: https://www.fd a.gov/media/ 0659/download. Patients: https://www.[employer] [facility] a.gov/media/ 203/download Ordering Provider: CHATO ADHIKARI Report Released Date/Time: Sep 23, 2023 01:14 PM Reporting Lab: [facility] [place] [address] [address] Performing Lab: [address] [address] COVID-19 PCR (FLUVID) NEGATIVE NEGATIVE FLU A PCR (FLUVID) NEGATIVE FLU B PCR (FLUVID) NEGATIVE RSV PCR (FLUVID) NEGATIVE Sep 16, 2023 01:56 PM [facility] HEMOGLOBIN A1C PANEL Specimen Type: [...] Sep 16, 2023 01:09 PM Reporting Lab: [address] [address] Performing Lab: [address] [address] HEMOGLOBIN A1C 6.8 H 4.0-5.6 Sep 16, 2023 01:56 PM [facility] BASIC METABOLIC PANEL (non-fasting) Specimen Type: SERUM No comment entered. Ordering Provider: NIK GILL Report Released Date/Time: Sep 16, 2023 01:09 PM Reporting Lab: [address] [address] Performing Lab: [address] [address] UREA NITROGEN 25 mg/dL 7-25 GLUCOSE 234 mg/dL H 65-100 SODIUM 140 mmol/L 135-145 POTASSIUM 5.0 mmol/L 3.5-5.0 CHLORIDE 106 mmol/L 100-110 CO2 23 meq/L 20-30 CREATININE, Serum 1.80 mg/dL H 0.50-1.40 eGFR(CKD-EPI 2020) 36 mL/min L >60 Sep 16, 2023 01:56 PM [facility] CBC Specimen Type: BLOOD No comment entered. Ordering Provider: NIK GILL Report Released Date/Time: Sep 16, 2023 01:09 PM Reporting Lab: [facility] [address] [facility] [address] Performing Lab: [facility] [address] [facility] [address] WBC 7.86 10*3/uL 4.50-11.00 RBC 4.28 10*6/uL [...] and tobacco- related health factors from the [place] facility where the Encounter took place. Current Smoking Status This section includes the most current smoking, or tobacco-related health factor, from the [place] facility where the Encounter took place. Date/Time Current Smoking Status Comment [place] Apr 28, 2023 03:00 PM [place]-TOBACCO NEVER USED [place] Tobacco Use History This section includes a history of the smoking, or tobacco-related health factors, that were collected on or before the date of the Encounter. The data comes from the [place] facility where the Encounter took place. Date/Time Smoking Status/Tobacco Use Comment F acility Apr 09, 2021 10:00 AM VA-TOBACCO NEVER USED [place] Mar 13, 2020 12:30 PM VA-TOBACCO NEVER USED [place] Feb 02, 2018 02:02 PM VA-TOBACCO NEVER USED [place] Mar 10, 2017 01:57 PM LIFETIME NON-TOBACCO USER [place] Feb 11, 2016 02:44 PM LIFETIME NON-TOBACCO USER [place] May 09, 2009 09:43 AM LIFETIME NON-TOBACCO USER [place] Radiology Reports: +/- 30 days of the [...] the Encounter. The data comes from all [place] treatment facilities. Date/Time Radiology Report Provider Source Sep 24, 2023 03:11 PM CHEST (2 VIEWS): ORLY LEAVITT [id number] -1935 M Exm Date: SEP 24, 2023@15:11 Req Phys: CHATO ADHIKARI Loc: CWM/SO/SICK CALL WORKPLACE TRAINER AND ASSESSOR (Req'g Loc Img Loc: [facility] 1 Service: Unknown (Case [id number] COMPLETE) CHEST (2 VIEWS) (RAD Detailed) CPT:88787 Reason for Study: wheezing, cough, SOB Clinical History: Covering resident, fellow, WORKPLACE TRAINER AND ASSESSOR or attending: Chato Adhikari NP [place] Pager: [phone] Backup pager: History: Report Status: Verified Date Reported: SEP 24, 2023 Date Verified: SEP 24, 2023 Glass Beveller E-Sig:/ES/LATRICE DUNBAR JR Report: Study: PA and [...] Primary Interpreting Staff: LATRICE DUNBAR JR, Radiologist (Glass Beveller) /LATRICE BAGLEY JR [place] [facility] [place] [facility] Encounter Notes: All associated encounter notes This [...] (T) Has ADDENDA Data: 88year old MALE [place] reports to Primary Care clinic for Walk-In [...] sick call requesting to have lungs checked. [place] here with daughter Mindi Daughter states dad continues with cough. [place] states he feels better but continues with [...] CARE RN Signed: 10/01/2023 09:54 KIP HEAD [place]
--- OUTSIDE RECORDS SUMMARY | 2024-06-01 14:07 | XMS_ITS | Encounter Summary ---
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 Name Role Phone MARGARITA FLOREZ Primary Care [...] Policy Bejarano ALVA [place] OF [place] [facility] Dec 13, 2013 [id number] DAGMAR,ZIA ERT PATIENT [place]BS [place] MEDICARE SUPPLEMEN [facility] November 06, 2007 [id number] DAGMAR,ZIA ERT PATIENT [place]BS [place] MEDICARE SUPPLEMEN [facility]EX 2 November 06, 2007 [id number] [phone] DAGMAR,ZIA ERT PATIENT [place] MED[place] SUPPLEMEN [facility]EX 2 November 06, 2007 [id number] DAGMAR,ZIA ERT PATIENT BCBS OF [facility] MEDICARE SUPPLEMEN [facility] Dec 13, 2013 [id number] DAGMAR,ZIA ERT PATIENT [place] SUPPLEMEN [facility] MMHG/ WHITM AN/MX Dec 13, 2008 [id number] DAGMAR,ZIA ERT PATIENT MEDICARE (WNR) MEDICARE () PART B May 15, 2012 PART B [id number] DAGMAR,ZIA ERT PATIENT MEDICARE (WNR) MEDICARE () PART A May 15, 2002 PART A [id number] [phone] DAGMAR,ZIA ERT PATIENT MEDICARE (WNR) MEDICARE () PART A May 15, 2002 PART A [id number] DAGMAR,ZIA ERT PATIENT MEDICARE (WNR) MEDICARE () PART B May 15, 2002 PART B [id number] [phone] DAGMAR,ZIA ERT PATIENT MEDICARE (WNR) MEDICARE () PART A May 15, 2002 PART A [id number] [phone] [phone] DAGMAR,ZIA ERT PATIENT MEDICARE (WNR) MEDICARE () PART B May 15, 2002 PART B [id number] DAGMAR,ZIA ERT PATIENT MEDICARE (WNR) MEDICARE () PART A May 15, 2002 PART A [id number] [phone] DAGMAR,ZIA ERT PATIENT MEDICARE (WNR) MEDICARE () PART B May 15, 2002 PART B [id number] DAGMAR,ZIA ERT PATIENT Selected Encounter This section includes the information on record at [place] for the Encounter. Date/Time Encounter Type Encounter [...] 20 appointments. The data comes from all [place] treatment facilities. Appointment Date/Time Appointment Type Appointme nt Facility Name Oct 13, 2023 01:00 PM AMBULATORY - MEDICINE [facility] October 16, 2023 01:00 PM [facility]ICINE [facility] Dec 15, 2023 02:30 PM [facility] - [facility]ICINE [facility] Dec 30, 2023 03:00 PM AMBULATORY - MEDICINE [facility] TRN [facility] Mar 02, 2024 03:00 PM [facility] Lab Results: +/- 30 days of the encounter This section includes the Chemistry and Hematology Lab Results on record with [place] for the patient. Radiology Reports and Pathology Reports are provided separately, in subsequent sections. Lab Results This section contains the Chemistry/Hematology Results that were resulted 30 days before or 30 daysafter the date of the Encounter. Date/Time Source Result Type Result - Unit Interpretation Reference Range Comment Sep 23, 2023 01:35 PM [place] COVID-19 FLU/RSV DIAGNOSTIC PANEL Speci men Type: NASOPHARYNX Comment: This test is authorized for emergency use only. False negative results may occur if virus is present at levels below the analytical limit of detection.Nega tive results do not preclude SARS-CoV-2, influenza or RSV infection and should not be used as the sole basis for treatment or other patient management decisions.[facility] mone FLUVID: HCPs: https://www.fd a.gov/media/ 5262/download. Patients: https://www.fd a.gov/media/ 493/download Ordering Provider: CHATO ADHIKARI Report Released Date/Time: Sep 23, 2023 01:14 PM Reporting Lab: [address] [address] Performing Lab: [address] [address] COVID-19 PCR (FLUVID) NEGATIVE NEGATIVE FLU A PCR (FLUVID) NEGATIVE FLU B PCR (FLUVID) NEGATIVE RSV PCR (FLUVID) NEGATIVE Sep 16, 2023 01:56 PM [facility] HEMOGLOBIN A1C PANEL Specimen Type: [...] Sep 16, 2023 01:09 PM Reporting Lab: [address] [address] Performing Lab: [address] [address] HEMOGLOBIN A1C 6.8 H 4.0-5.6 Sep 16, 2023 01:56 PM [facility] BASIC METABOLIC PANEL (non-fasting) Specimen Type: SERUM No comment entered. Ordering Provider: NIK GILL Report Released Date/Time: Sep 16, 2023 01:09 PM Reporting Lab: [address] [address] Performing Lab: [address] [address] UREA NITROGEN 25 mg/dL 7-25 GLUCOSE 234 mg/dL H 65-100 SODIUM 140 mmol/L 135-145 POTASSIUM 5.0 mmol/L 3.5-5.0 CHLORIDE 106 mmol/L 100-110 CO2 23 meq/L 20-30 CREATININE, Serum 1.80 mg/dL H 0.50-1.40 eGFR(CKD-EPI 2020) 36 mL/min L >60 Sep 16, 2023 01:56 PM [facility] CBC Specimen Type: BLOOD No comment entered. Ordering Provider: NIK GILL Report Released Date/Time: Sep 16, 2023 01:09 PM Reporting Lab: [address] [address] Performing Lab: [address] [address] WBC 7.86 10*3/uL 4.50-11.00 RBC 4.28 10*6/uL [...] and tobacco- related health factors from the [place] facility where the Encounter took place. Current Smoking Status This section includes the most current smoking, or tobacco-related health factor, from the [place] facility where the Encounter took place. Date/Time Current Smoking Status Comment Facil ity Apr 15, 2022 01:00 PM [place]-TOBACCO NEVER USED [place] [facility] Radiology Reports: +/- 30 days [...] the Encounter. The data comes from all [place] treatment facilities. Date/Time Radiology Report Provider Source Sep 24, 2023 03:11 PM CHEST (2 VIEWS): DAGMARORLY CATHY [id number] -1935 Ex Date: SEP 24, 2023@15:11 Req Phys: CHATO ADHIKARI Loc: CWM/SO/SICK CALL RATOPRINTER (Req'g Loc Img Loc: [facility] 1 Service: Unknown (Case [id number] COMPLETE) CHEST (2 VIEWS) (RAD Detailed) CPT:85377 Reason for Study: wheezing, cough, SOB Clinical History: Covering resident, fellow, RATOPRINTER or attending: Chato Adhikari NP [place] Pager: [phone] Backup pager: History: Report Status: Verified Date Reported: SEP 24, 2023 Date Verified: SEP 24, 2023 Foundation Director E-Sig:/ES/LATRICE DUNBAR JR Report: Study: PA and [...] Primary Interpreting Staff: LATRICE DUNBAR JR, Radiologist (Foundation Director) /LATRICE BAGLEY JR [facility] WSN [facility] Encounter Notes: All associated encounter [...] [ X ] At this encounter the [place]'s Insurance information was verified. [ X ] At this encounter the below scheduled visits for the were discussed and appointment reminder card was offered. Future appointments: 09/30/2023 15:15 CWM/SO/SICK RN 10/13/2023 13:00 NHM/OPTOMETRY/DALE 10/16/2023 13:00 CWM/NO/COMP PEN AUDIO 12/15/2023 14:30 CWM/SO/PACT 5 12/30/2023 15:00 CWM/SO/PHARM/PACT 2 [place] here for walk-in sick call for SOB. /radhames/ JEAN PAUL SOTO Signed: 09/30/2023 15:15 Receipt Acknowledged By: 10/01/2023 14:22 /es/ LENNOX PEARCE RN REGISTERED NURSE 09/30/2023 15:53 /es/ KIP HEAD RN PRIMARY CARE RN JEAN PAUL CHOWDHURY
--- OUTSIDE RECORDS SUMMARY | 2024-06-01 14:07 | XMS_ITS | Encounter Summary ---
Author Name [facility] [place] Organization [facility] [facility] [place] Address [address] [place] [id number] Care Team Providers Care Chandelier Maker Name Role Phone MARGARITA FLOREZ Primary [...] Policy [place]jar[place] [facility] Dec 13, 2013 [id number] DAGMAR,ZIA ERT PATIENT [place] MED[place] SUPPLEMEN [facility] November 06, 2007 [id number] DAGMAR,ZIA ERT PATIENT [place] MED[place]ARE SUPPLEMEN [facility] 2 November 06, 2007 [id number] [phone] DAGMAR,ZIA ERT [place] SUPPLE[place] [facility] 2 November 06, 2007 [id number] DAGMAR,ZIA ERT PATIENT BCBS OF [facility] MEDICARE SUPPLEMEN [facility] Dec 13, 2013 [id number] [phone] DAGMAR,ZIA ERT PATIENT [place] MED[place] SUPPLEMEN [facility]/ [facility] AN/MX Dec 13, 2008 [id number] [phone] DAGMAR,ZIA ERT PATIENT MEDICARE (WNR) MEDICARE () PART B May 15, 2012 PART B [id number] DAGMAR,ZIA ERT PATIENT MEDICARE (WNR) MEDICARE () PART A May 15, 2002 PART A [id number] DAGMAR,ZIA ERT PATIENT MEDICARE (WNR) MEDICARE () PART A May 15, 2002 PART A [id number] [phone] DAGMAR,ZIA ERT PATIENT MEDICARE (WNR) MEDICARE () PART B May 15, 2002 PART B [id number] DAGMAR,ZIA ERT PATIENT MEDICARE (WNR) MEDICARE () PART A May 15, 2002 PART A [id number] [id number] [phone] DAGMAR,ZIA ERT PATIENT MEDICARE (WNR) MEDICARE () PART B May 15, 2002 PART B [id number] DAGMAR,ZIA ERT PATIENT MEDICARE (WNR) MEDICARE () PART A May 15, 2002 PART A [id number] [id number] [phone] DAGMAR,ZIA ERT PATIENT MEDICARE (WNR) MEDICARE () PART B May 15, 2002 PART B [id number] [id number] [phone] DAGMAR,ZIA ERT PATIENT Selected Encounter This [...] 2023 10:44 AM PRIMARY Ingrowing WILLY Delacruz [facility] October 22, 2023 10:44 AM SECONDARY Pain [...] care activities for the patient from all [place] treatmentfacilities. This section includes future appointments and [...] 2023 01:00 PM AMBULATORY - MEDICINE [facility] October 16, 2023 01:00 PM [facility] Dec 15, 2023 02:30 PM [facility]INE [facility] Dec 30, 2023 03:00 PM [facility] Mar 02, 2024 03:00 PM AMBULATORY - MEDICINE [facility] Lab Results: +/- 30 days of the encounter This section includes the Chemistry and Hematology Lab Results on record with [place] for the patient. Radiology Reports and Pathology Reports are provided separately, in subsequent sections. Lab Results This section contains the Chemistry/Hematology Results that were resulted 30 days before or 30 daysafter the date of the Encounter. Date/Time Source Result Type Result - Unit Interpretation Reference Range Comment Sep 23, 2023 01:35 PM [facility] COVID-19 FLU/RSV DIAGNOSTIC PANEL Speci men Type: NASOPHARYNX Comment: This test is authorized for emergency use only. False negative results may occur if virus is present at levels below the analytical limit of detection.Nega tive results do not preclude SARS-CoV-2, influenza or RSV infection and should not be used as the sole basis for treatment or other patient management decisions.[facility] mone FLUVID: HCPs: https://www.fd a.gov/media/ 8053/download. Patients: https://www.Rebel Monkey a.gov/media/ 3060/download Ordering Provider: CHATO ADHIKARI Report Released Date/Time: Sep 23, 2023 01:14 PM Reporting Lab: [address] [address] Performing Lab: [address] [address] COVID-19 PCR (FLUVID) NEGATIVE NEGATIVE FLU A PCR (FLUVID) NEGATIVE FLU B PCR (FLUVID) NEGATIVE RSV PCR (FLUVID) NEGATIVE Sep 16, 2023 01:56 PM [facility] HEMOGLOBIN A1C PANEL Specimen Type: BLOOD [...] Sep 16, 2023 01:09 PM Reporting Lab: [address] [address] Performing Lab: [address] [address] HEMOGLOBIN A1C 6.8 H 4.0-5.6 Sep 16, 2023 01:56 PM [facility] BASIC METABOLIC PANEL (non-fasting) Specimen Type: SERUM No comment entered. Ordering Provider: NIK GILL Report Released Date/Time: Sep 16, 2023 01:09 PM Reporting Lab: [address] [address] Performing Lab: [address] [address] UREA NITROGEN 25 mg/dL 7-25 GLUCOSE 234 mg/dL H 65-100 SODIUM 140 mmol/L 135-145 POTASSIUM 5.0 mmol/L 3.5-5.0 CHLORIDE 106 mmol/L 100-110 CO2 23 meq/L 20-30 CREATININE, Serum 1.80 mg/dL H 0.50-1.40 eGFR(CKD-EPI 2020) 36 mL/min L >60 Sep 16, 2023 01:56 PM [facility] CBC Specimen Type: BLOOD No comment entered. Ordering Provider: NIK GILL Report Released Date/Time: Sep 16, 2023 01:09 PM Reporting Lab: [facility] [address] [facility] [address] Performing Lab: [facility] [address] [address] WBC 7.86 10*3/uL 4.50-11.00 RBC 4.28 10*6/uL [...] and tobacco- related health factors from the [place] facility where the Encounter took place. Current Smoking Status This section includes the most current smoking, or tobacco-related health factor, from the [place] facility where the Encounter took place. Date/Time Current Smoking Status Comment Jesus fall Apr 28, 2023 03:00 PM DE-TOBACCO NEVER USED [facility] Tobacco Use History This section includes a history of the smoking, or tobacco-related health factors, that were collected on or before the date of the Encounter. The data comes from the [place] facility where the Encounter took place. Date/Time Smoking Status/Tobacco Use Comment F acility Apr 09, 2021 10:00 AM VA-TOBACCO NEVER USED [facility] Mar 13, 2020 12:30 PM VA-TOBACCO NEVER USED [facility] Feb 02, 2018 02:02 PM VA-TOBACCO NEVER USED [facility] Mar 10, 2017 01:57 PM LIFETIME NON-TOBACCO USER [facility] Feb 11, 2016 02:44 PM LIFETIME NON-TOBACCO USER [facility] May 09, 2009 09:43 AM LIFETIME NON-TOBACCO USER [facility] Radiology Reports: +/- 30 days of the [...] the Encounter. The data comes from all [place] treatment facilities. 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 LAST SEEN: 04/29/2023 S: Pt. is an [...] *NOTE: A1c = 6.8 (LAST TAKEN: 09/2023) RIK=[id number] week on prednisone RISK VALUE =2 HEIGHT: [...] present physical-medical status. Protective sensation utilizing a [place] lOg monofilament is 10/10 bilateral. ABOVE exams [...] this VA (local) and dispensed from another DE or DoD facility (remote) as well as [...] Remote Allergy/ADR Data available for this patient [place] CNT [facility] [place] [facility] COLCHICINE/PROBENECID Med Recon NoGlossary (Tool #1) INCLUDED IN THIS LIST: Alphabetical list of active outpatient prescriptions dispensed from this VA (local) and dispensed from another [place] or DoD facility (remote) as well as inpatient orders (local pending and active), local clinic medications, locally documented non-VA medications, and local prescriptions that have or been discontinued in the past 90 days. Non-VA Meds Last Documented On: Sep 15, 2023 NOTE The display of VA prescriptions dispensed from another DE or DoD facility (remote) is limited to active outpatient prescription entries matched to National Drug File at the originating site and may not include some items such as investigational drugs, compounds, etc. NOT INCLUDED IN THIS LIST: Medications self-entered by the patient into personal health records (i.e. [employer]) are NOT included in this list. Non-VA medications documented outside this DE, remote inpatient orders (regardless of status) and remote clinic medications are NOT included in this list. The patient and provider must always discuss medications the patient is taking, regardless of where the medication was dispensed or obtained. OUTPT ALBUTEROL 90MCG (CFC-F) 200D ORAL INHL (Status = Active) INHALE 1 TO 2 PUFFS BY MOUTH EVERY 6 HOURS NEEDED FOR BRONCHOSPASM Rx# [id number] Last Released: 09/23/23 Qty/Days Supply: 06/24 Rx Expiration Date: 10/23/23 Refills Remainin Indication: FOR BRONCHOSPASM OUTPT ALLOPURINOL 100MG TAB (Status = Active) TAKE ONE TABLET BY MOUTH TWICE DAILY FOR GOUT Rx# [id number] Last Released: 08/29/23 Qty/Days Supply: Rx Expiration Date: 05/17/24 Refills Remainin OUTPT AMLODIPINE BESYLATE 5MG TAB (Status = Active/Suspended) TAKE ONE TABLET BY MOUTH ONCE DAILY FOR BLOOD PRESSURE/HEART, DO NOT TAKE WITH GRAPEFRUIT JUICE Rx# [id number] Last Released: 07/13/23 Qty/Days Supply: Rx Expiration Date: 05/17/24 Refills Remainin OUTPT AMOXICILLIN 500MG CAP (Status = Active) TAKE ONE CAPSULE BY MOUTH TWICE DAILY Rx# [id number] Last Released: 09/28/23 Qty/Days Supply: 26/12 Rx Expiration Date: 10/28/23 Refills Remainin Indication: FOR INFECTION CAUSED BY BACTERIA Non-VA ASPIRIN 81MG EC TAB TAKE ONE TABLET BY MOUTH DAILY Non-VA medication not recommended by VA provider. OUTPT CARBOXYMETHYLCELLULOSE NA 0.5% OPH SOLN (Status = Active) INSTILL 1 DROP INTO EACH EYE FOUR TIMES DAILY NEEDED FOR DRY EYE Rx# [id number] Last Released: 10/16/22 Qty/Days Supply: Rx Expiration [...] ONCE DAILY TO PREVENT BLOOD CLOTS Rx# [id number] Last Released: 09/24/23 Qty/Days Supply: 90 Rx Expiration Date: 05/17/24 Refills Remainin Indication: TO PREVENT BLOOD CLOTS Non-VA CYANOCOBALAMIN 250MCG TAB TAKE ONE TABLET BY MOUTH ONCE DAILY Patient wants to buy from Non-VA pharmacy. OUTPT DM 10/GUAIFENESN 100MG/5ML (AF & SF) LIQ (Status = Active) TAKE 10 MLS BY MOUTH EVERY 6 HOURS NEEDED FOR COUGH Rx# [id number] Last Released: 09/23/23 Qty/Days Supply: 120/10 Rx Expiration Date: 10/23/23 Refills Remainin Indication: FOR COUGH OUTPT FENOFIBRATE 145MG TAB (Status = Active/Suspended) TAKE ONE TABLET BY MOUTH AT BEDTIME TO LOWER CHOLESTEROL Rx# [id number] Last Released: 08/10/23 Qty/Days Supply: 90 Rx [...] DAILY TO REMOVE FLUID/CONTROL BLOOD PRESSURE Rx# [id number] Last Released: 09/16/23 Qty/Days Supply: 90 Rx Expiration Date: 09/15/24 Refills Remainin Indication: FOR EDEMA WITH DEFECTIVE KIDNEY FUNCTION OUTPT FUROSEMIDE 40MG TAB (Status = Discontinued) TAKE ONE TABLET BY MOUTH ONCE DAILY TO REMOVE FLUID/CONTROL BLOOD PRESSURE Rx# [id number] Last Released: 08/21/23 Qty/Days Supply: 90 Rx Expiration Date: 05/17/24 Refills Remainin OUTPT GABAPENTIN 300MG CAP (Status = Active) TAKE ONE CAPSULE BY MOUTH AT BEDTIME Rx# [id number] Last Released: 07/06/23 Qty/Days Supply: Rx Expiration [...] AND INJECT 20 UNITS EVERY EVENING Rx# [id number] Last Released: 09/22/23 Qty/Days Supply: Rx Expiration Date: 06/10/24 Refills Remainin Indication: FOR DIABETES OUTPT LISINOPRIL 5MG TAB (Status = Discontinued) TAKE ONE TABLET BY MOUTH ONCE DAILY TO CONTROL BLOOD PRESSURE Rx# [id number] Last Released: 08/29/23 Qty/Days Supply: Rx Expiration Date: 05/17/24 Refills Remainin OUTPT LUBRICATING (PF) OPH OINT (Status = Active) APPLY THIN RIBBON INTO EACH EYE AT BEDTIME Rx# [id number] Last Released: 10/16/22 Qty/Days Supply: 07/12 Rx Expiration Date: 10/10/23 Refills Remainin OUTPT MAGNESIUM OXIDE 420MG TAB (Status = Active) TAKE ONE TABLET BY MOUTH TWICE DAILY FOR MAGNESIUM SUPPLEMENTATION Rx# [id number] Last Released: 07/30/23 Qty/Days Supply: Rx Expiration Date: 04/23/24 Refills Remainin Indication: FOR MAGNESIUM SUPPLEMENTATION OUTPT METFORMIN HCL 500MG 24HR SA TAB (Status = Active) TAKE TWO TABLETS BY MOUTH ONCE DAILY Rx# [id number] Last Released: 09/18/23 Qty/Days Supply: Rx Expiration Date: 05/17/24 Refills Remainin OUTPT METOPROLOL SUCCINATE 100MG SA TAB (Status = Active/Suspended) TAKE ONE TABLET BY MOUTH ONCE DAILY FOR BLOOD PRESSURE/HEART Rx# [id number] Last Released: 08/12/23 Qty/Days Supply: Rx Expiration Date: 05/17/24 Refills Remainin OUTPT NIACIN (SLO-NIACIN) 750MG TAB,SA (Status = On Hold) TAKE ONE TABLET BY MOUTH TWICE DAILY Rx# [id number] Last Released: Qt Supply: 200 Rx Expiration Date: 05/21/24 Refills Remainin OUTPT OMEPRAZOLE 20MG EC CAP (Status = Active) TAKE ONE CAPSULE BY MOUTH TWICE DAILY Rx# [id number] Last Released: 06/02/23 Qty/Days Supply: Rx Expiration Date: 05/17/24 Refills Remainin OUTPT PREDNISONE 50MG TAB (Status = Active) TAKE ONE TABLET BY MOUTH ONCE DAILY FOR BRONCHITIS Rx# [id number] Last Released: 09/23/23 Qt Supply: 10/17 Rx Expiration Date: 10/23/23 Refills Remainin Indication: BRONCHITIS OUTPT SEMAGLUTIDE 1MG/0.75ML INJ PEN 3ML (Status = Active) INJECT 1MG SUBCUTANEOUSLY ONCE A WEEK FOR TYPE 2 DIABETES MELLITUS Rx# [id number] Last Released: 09/14/23 Qt/Days Supply: 07/12 Rx Expiration Date: 06/10/24 Refills Remainin Indication: FOR TYPE 2 DIABETES MELLITUS OUTPT SIMVASTATIN 80MG TAB (Status = Active/Suspended) TAKE ONE-HALF TABLET BY MOUTH ONCE DAILY FOR CHOLESTEROL Rx# [id number] Last Released: 07/30/23 Qt/Days Supply: Rx Expiration Date: 05/17/24 Refills Remainin SUPPLIES OUTPT ACCU-CHEK GUIDE (GLUCOSE) TEST STRIP (Status = Active) USE 1 STRIP TO TEST BLOOD SUGARS TWICE DAILY Rx# [id number] Last Released: 05/05/23 Qty/Days Supply: 50/180 Rx Expiration Date: 04/28/24 Refills Remainin Indication: DIABETES OUTPT ACCU-CHEK GUIDE ME (GLUCOSE) METER (Status = ) USE METER TO TEST BLOOD SUGARS ONCE DAILY Rx# [id number] Last Released: 04/29/23 Qty/Days Supply: Rx Expiration Date: 07/27/23 Refills Remainin Indication: DIABETES OUTPT AEROCHAMBER Z-STAT PLUS (Status = Active) USE CHAMBER EVERY 6 HOURS NEEDED WITH ALBUTEROL INHALER Rx# [id number] Last Released: 09/25/23 Qty/Days Supply: 06/24 Rx Expiration Date: 10/23/23 Refills Remainin OUTPT GLUCOSE SENSOR DEXCOM G7 (Status = Discontinued) USE 1 SENSOR DIRECTED EVERY 10 DAYS Rx# [id number] Last Released: 07/01/23 Qty/Days Supply: Rx Expiration Date: 04/28/24 Refills Remainin OUTPT GLUCOSE SENSOR DEXCOM G7 (Status = Active) USE 1 SENSOR DIRECTED EVERY 10 DAYS Rx# [id number] Last Released: 08/05/23 Qty/Days Supply: Rx Expiration Date: 08/05/24 Refills Remainin OUTPT INSULIN SYRINGE 0.5ML 30G 12MM (Status = Active) USE 1 SYRINGE SUBCUTANEOUSLY TWICE DAILY FOR INSULIN INJECTIONS Rx# [id number] Last Released: 09/15/23 Qty/Days Supply: 200/90 Rx Expiration Date: 06/10/24 Refills Remainin OUTPT LANCET,SOFTCLIX (Status = Active) USE 1 LANCET TOPICALLY ONCE DAILY TO TEST BLOOD SUGAR Rx# [id number] Last Released: 05/05/23 Qty/Days Supply: 20090 Rx Expiration Date: 04/28/24 Refills Remainin Indication: DIABETES OUTPT SKIN BARRIER WIPE TORBOT SKIN TAC (Status = Active) USE 1 WIPE TOPICALLY EVERY 10 DAYS Rx# [id number] Last Released: 03/26/23 Qty/Days Supply: 5090 Rx Expiration Date: 03/24/24 Refills Remainin /es/ WILLY GARCÍA DPM ELIGIBILITY EXAMINER Signed: 09/30/2023 15:21 WILLY GARCÍA
--- OUTSIDE RECORDS SUMMARY | 2024-06-01 14:07 | XMS_ITS | Encounter Summary ---
Author Name [facility] [place] Organization [facility] [place] Address [address] [place] [address] Care Team Providers Care Color Sprayer Name Role Phone MARGARITA FLOREZ Primary Care [...] Policy Bejarano ALVA [place] OF [place] MEDIC[facility] Dec 13, 2013 [id number] DAGMAR,ZIA ERT PATIENT BCBS [place] MEDICARE SUPPLEMEN [facility] November 06, 2007 [id number] DAGMAR,ZIA ERT PATIENT [place] MED[place] SUPPLEMEN [facility] MEDEX 2 November 06, 2007 [id number] DAGMAR,ZIA ERT PAT[place] MEDEX 2 November 06, 2007 [id number] DAGMAR,ZIA ERT PATIENT BCBS OF [facility] MEDICARE SUPPLEMEN [place] [facility] Dec 13, 2013 [id number] [phone] DAGMAR,ZIA ERT PATIENT [place] MEDICARE ROSALBA RAUSCH [facility] AN/MX Dec 13, 2008 [id number] DAGMAR,ZIA ERT PATIENT MEDICARE (WNR) MEDICARE () PART B May 15, 2012 PART B [id number] DAGMAR,ZIA ERT PATIENT MEDICARE (WNR) MEDICARE () PART A May 15, 2002 PART A [id number] DAGMAR,ZIA ERT PATIENT MEDICARE (WNR) MEDICARE (M) PART B May 15, 2002 PART B [id number] DAGMAR,ZIA ERT PATIENT MEDICARE (WNR) MEDICARE () PART A May 15, 2002 PART A [id number] DAGMAR,ZIA ERT PATIENT MEDICARE (WNR) MEDICARE (M) PART B May 15, 2002 PART B [id number] DAGMAR,ZIA ERT PATIENT MEDICARE (WNR) MEDICARE () PART A May 15, 2002 PART A [id number] [phone] DAGMAR,ZIA ERT PATIENT MEDICARE (WNR) MEDICARE () PART B May 15, 2002 PART B [id number] DAGMAR,ZIA ERT PATIENT MEDICARE (WNR) MEDICARE () PART A May 15, 2002 PART A [id number] [phone] DAGMAR,ZIA ERT PATIENT Selected Encounter This [...] 2 diabetes mellitus without complications KAELA HUNTER ID [facility] [place] [facility] November 06, 2023 06:10 AM SECONDARY Dry eye syndrome of bilateral lacrimal glands [facility] [place] [facility] November 06, 2023 06:10 AM SECONDARY Presence of intraocular lens [facility] Plan of Treatment: Future Appointments (+ 6 months) and Future Tests (+/- 45 days) The Plan of Treatment section includes future care activities for the patient [facility] This section includes future appointments and [...] AMBULATORY - MEDICINE ID [facility] Dec 15, 2023 02:30 PM AMBULATORY - MEDICINE [facility] Dec 30, 2023 03:00 PM AMBULATORY MEDICINE ID C [facility] [facility] Mar 02, 2024 03:00 PM AMBULATORY - MEDICINE [facility] Lab Results: +/- 30 [...] Range Comment Sep 23, 2023 01:35 PM [place] COVID-19 FLU/RSV DIAGNOSTIC PANEL Speci men Type: NASOPHARYNX Comment: This test is authorized for emergency use only. False negative results may occur if virus is present at levels below the analytical limit of detection.Nega tive results do not preclude SARS-CoV-2, influenza or RSV infection and should not be used as the sole basis for treatment or other patient management decisions.[facility] mone FLUVID: HCPs: https://www.fd a.gov/media/ 3655/download. Patients: https://www.Wello a.gov/media/ 8595/download Ordering Provider: CHATO ADHIKARI Report Released Date/Time: Sep 23, 2023 01:14 PM Reporting Lab: [address] [address] Performing Lab: [address] [address] COVID-19 PCR (FLUVID) NEGATIVE NEGATIVE FLU A PCR (FLUVID) NEGATIVE FLU B PCR (FLUVID) NEGATIVE RSV PCR (FLUVID) NEGATIVE Sep 16, 2023 01:56 PM [facility] HEMOGLOBIN A1C PANEL Specimen Type: BLOOD [...] Sep 16, 2023 01:09 PM Reporting Lab: [address] [address] Performing Lab: [address] [address] HEMOGLOBIN A1C 6.8 H 4.0-5.6 Sep 16, 2023 01:56 PM [facility] BASIC METABOLIC PANEL (non-fasting) Specimen Type: SERUM No comment entered. Ordering Provider: NIK GILL Report Released Date/Time: Sep 16, 2023 01:09 PM Reporting Lab: [address] [address] Performing Lab: [address] [address] UREA NITROGEN 25 mg/dL 7-25 GLUCOSE 234 mg/dL H 65-100 SODIUM 140 mmol/L 135-145 POTASSIUM 5.0 mmol/L 3.5-5.0 CHLORIDE 106 mmol/L 100-110 CO2 23 meq/L 20-30 CREATININE, Serum 1.80 mg/dL H 0.50-1.40 eGFR(CKD-EPI 2020) 36 mL/min L >60 Sep 16, 2023 01:56 PM [facility] CBC Specimen Type: BLOOD No comment entered. Ordering Provider: NIK GILL Report Released Date/Time: Sep 16, 2023 01:09 PM Reporting Lab: [facility] [address] [facility] [address] Performing Lab: [facility] [address] [facility] [address] WBC 7.86 10*3/uL 4.50-11.00 RBC 4.28 10*6/uL [...] 2022 01:00 PM VA-TOBACCO NEVER USED [facility] Radiology Reports: +/- 30 days of [...] 03:11 PM CHEST (2 VIEWS): ORLY LEAVITT [id number] -[id number] M Exm Date: SEP 24, 2023@15:11 Req Phys: CHATO ADHIKARI Loc: CWM/SO/SICK CALL CHIEF TECHNOLOGIST (Req'g Loc Img Loc: [facility]BUILDING 1 Service: Unknown (Case [id number] COMPLETE) CHEST (2 VIEWS) (RAD Detailed) CPT:36137 Reason for Study: wheezing, cough, SOB Clinical History: Covering resident, fellow, CHIEF TECHNOLOGIST or attending: Chato Adhikari NP ID Pager: [phone] Backup pager: History: Report Status: Verified Date Reported: SEP 24, 2023 Date Verified: SEP 24, 2023 Enterprise Architect E-Sig:/ES/LATRICE DUNBAR JR Report: Study: PA and [...] Primary Interpreting Staff: LATRICE DUNBAR JR, Radiologist (Enterprise Architect) /LATRICE BAGLEY JR ID [facility] Encounter Notes: All associated encounter notes [...] Diarrhea 5. Gutierrez's esophagus 6. Insomnia (SCT 740084767) 7. Bone density below reference range 8. Diabetes Mellitus Type 2 (SCT 68105155) 9. Obstructive Sleep Apnea of Adult (SCT 2264310985937) 10. Prostate Cancer ([facility] [id number]) 11. Chronic kidney disease stage 3 12. Low Back Pain * 13. Vitamin B12 deficiency 14. 2009: Colonoscopy: Polypectomy 1511-08-09: PFT: Normal 16. Abdominal aortic aneurysm (SNOMED CT 327097288) 17. Benign essential hypertension (SNOMED CT 7697685) 18. Venous insufficiency of leg (SNOMED CT 125584223) 19. Other dyspnea and respiratory abnormality 20. Coronary arteriosclerosis (SNOMED CT 17599565) 21. CAD: 2005:PTCA 5 TaxusStents: LADx2 RCAx2 Prox RCA x1 22. H/O: gout 23. Hyperglycemia due to type 2 diabetes mellitus (SNOMED CT 655876256787725) 24. Gastroesophageal reflux disease 25. Hyperlipidemia (SNOMED CT 19294120) 26. 1957: 2 rt inguinal hernia repair/[place] 27. 1969: Lipoma Removal 28. Tonsillectomy and [...] of active outpatient prescriptions dispensed from this ID (local) and dispensed from another ID or [facility] facility (remote) as well as inpatient orders [...] list may not be complete. Please check [employer]. Allergies/ADRs (Tool #5) FACILITY ALLERGY/ADR -------- No Remote Allergy/ADR Data available for this patient ID [facility] [place] [facility] COLCHICINE/PROBENECID Med Recon NoGlossary (Tool #1) INCLUDED IN THIS LIST: Alphabetical list of active outpatient prescriptions dispensed from this VA (local) and dispensed from another ID or DoD facility (remote) as well as inpatient orders (local pending and active), local clinic medications, locally documented non-VA medications, and local prescriptions that have or been discontinued in the past 90 days. Non-VA Meds Last Documented On: Sep 15, 2023 NOTE The display of VA prescriptions dispensed from another ID or [facility] facility (remote) is limited to active outpatient prescription entries matched to National Drug File at the originating site and may not include some items such as investigational drugs, compounds, etc. NOT INCLUDED IN THIS LIST: Medications self-entered by the patient into personal health records (i.e. [employer]fusion) are NOT included in this list. Non-VA medications documented outside this ID, remote inpatient orders (regardless of status) and remote clinic medications are NOT included in this list. The patient and provider must always discuss medications the patient is taking, regardless of where the medication was dispensed or obtained. OUTPT ALBUTEROL 90MCG (CFC-F) 200D ORAL INHL (Status = Active) INHALE 1 TO 2 PUFFS BY MOUTH EVERY 6 HOURS NEEDED FOR BRONCHOSPASM Rx# [id number] Last Released: 09/23/23 Qty/Days Supply: 06/24 Rx Expiration Date: 10/23/23 Refills Remainin Indication: FOR BRONCHOSPASM OUTPT ALLOPURINOL 100MG TAB (Status = Active) TAKE ONE TABLET BY MOUTH TWICE DAILY FOR GOUT Rx# [id number] Last Released: 08/29/23 Qty/Days Supply: Rx Expiration Date: 05/17/24 Refills Remainin OUTPT AMLODIPINE BESYLATE 5MG TAB (Status = Active) TAKE ONE TABLET BY MOUTH ONCE DAILY FOR BLOOD PRESSURE/HEART, DO NOT TAKE WITH GRAPEFRUIT JUICE Rx# [id number] Last Released: 10/01/23 Qty/Days Supply: Rx Expiration Date: 05/17/24 Refills Remainin OUTPT AMOXICILLIN 500MG CAP (Status = Active) TAKE ONE CAPSULE BY MOUTH TWICE DAILY Rx# [id number] Last Released: 09/28/23 Qty/Days Supply: 26/12 Rx Expiration Date: 10/28/23 Refills Remainin Indication: FOR INFECTION CAUSED BY BACTERIA Non-VA ASPIRIN 81MG EC TAB TAKE ONE TABLET BY MOUTH DAILY Non-VA medication not recommended by VA provider. OUTPT BENZONATATE 100MG CAP (Status = Active) TAKE ONE CAPSULE BY MOUTH EVERY 8 HOURS NEEDED FOR COUGH Rx# [id number] Last Released: 10/05/23 Qty/Days Supply: Rx Expiration Date: 10/31/23 Refills Remainin Indication: FOR COUGH OUTPT CARBOXYMETHYLCELLULOSE NA 0.5% OPH SOLN (Status = ) INSTILL 1 DROP INTO EACH EYE FOUR TIMES DAILY NEEDED FOR DRY EYE Rx# [id number] Last Released: 10/16/22 Qty/Days Supply: 60 Rx [...] ONCE DAILY TO PREVENT BLOOD CLOTS Rx# [id number] Last Released: 09/24/23 Qty/Days Supply: Rx Expiration Date: 05/17/24 Refills Remainin Indication: TO PREVENT BLOOD CLOTS Non-VA CYANOCOBALAMIN 250MCG TAB TAKE ONE TABLET BY MOUTH ONCE DAILY Patient wants to buy from Non-VA pharmacy. OUTPT DM 10/GUAIFENESN 100MG/5ML (AF & SF) LIQ (Status = Discontinued) TAKE 10 MLS BY MOUTH EVERY 6 HOURS NEEDED FOR COUGH Rx# [id number] Last Released: 09/23/23 Qty/Days Supply: 120/10 Rx Expiration Date: 10/23/23 Refills Remainin Indication: FOR COUGH OUTPT DM 10/GUAIFENESN 100MG/5ML (AF & SF) LIQ (Status = Active) TAKE 10 MLS BY MOUTH EVERY 6 HOURS NEEDED FOR COUGH Rx# [id number] Last Released: 10/02/23 Qty/Days Supply: 120/10 Rx Expiration Date: 10/31/23 Refills Remainin Indication: FOR COUGH OUTPT FENOFIBRATE 145MG TAB (Status = Active/Suspended) TAKE ONE TABLET BY MOUTH AT BEDTIME TO LOWER CHOLESTEROL Rx# [id number] Last Released: 08/10/23 Qty/Days Supply: Rx Expiration [...] DAILY TO REMOVE FLUID/CONTROL BLOOD PRESSURE Rx# [id number] Last Released: 09/16/23 Qty/Days Supply: Rx Expiration Date: 09/15/24 Refills Remainin Indication: FOR EDEMA WITH DEFECTIVE KIDNEY FUNCTION OUTPT FUROSEMIDE 40MG TAB (Status = Discontinued) TAKE ONE TABLET BY MOUTH ONCE DAILY TO REMOVE FLUID/CONTROL BLOOD PRESSURE Rx# [id number] Last Released: 08/21/23 Qty/Days Supply: Rx Expiration Date: 05/17/24 Refills Remainin OUTPT GABAPENTIN 300MG CAP (Status = Active) TAKE ONE CAPSULE BY MOUTH AT BEDTIME Rx# [id number] Last Released: 07/06/23 Qty/Days Supply: Rx Expiration [...] AND INJECT 20 UNITS EVERY EVENING Rx# [id number] Last Released: 09/22/23 Qty/Days Supply: Rx Expiration Date: 06/10/24 Refills Remainin Indication: FOR DIABETES OUTPT LISINOPRIL 5MG TAB (Status = Discontinued) TAKE ONE TABLET BY MOUTH ONCE DAILY TO CONTROL BLOOD PRESSURE Rx# [id number] Last Released: 08/29/23 Qty/Days Supply: Rx Expiration Date: 05/17/24 Refills Remainin OUTPT LUBRICATING (PF) OPH OINT (Status = ) APPLY THIN RIBBON INTO EACH EYE AT BEDTIME Rx# [id number] Last Released: 10/16/22 Qty/Days Supply: 07/12 Rx Expiration Date: 10/10/23 Refills Remainin OUTPT MAGNESIUM OXIDE 420MG TAB (Status = Active) TAKE ONE TABLET BY MOUTH TWICE DAILY FOR MAGNESIUM SUPPLEMENTATION Rx# [id number] Last Released: 07/30/23 Qty/Days Supply: 180/ Rx Expiration Date: 04/23/24 Refills Remainin Indication: FOR MAGNESIUM SUPPLEMENTATION OUTPT METFORMIN HCL 500MG 24HR SA TAB (Status = Active) TAKE TWO TABLETS BY MOUTH ONCE DAILY Rx# [id number] Last Released: 09/18/23 Qty/Days Supply: 180 Rx Expiration Date: 05/17/24 Refills Remainin OUTPT METOPROLOL SUCCINATE 100MG SA TAB (Status = Active/Suspended) TAKE ONE TABLET BY MOUTH ONCE DAILY FOR BLOOD PRESSURE/HEART Rx# [id number] Last Released: 08/12/23 Qty/Days Supply: 90 Rx Expiration Date: 05/17/24 Refills Remainin OUTPT NIACIN (SLO-NIACIN) 750MG TAB,SA (Status = On Hold) TAKE ONE TABLET BY MOUTH TWICE DAILY Rx# [id number] Last Released: Qt Supply: 200 Rx Expiration Date: 05/21/24 Refills Remainin OUTPT OMEPRAZOLE 20MG EC CAP (Status = Active) TAKE ONE CAPSULE BY MOUTH TWICE DAILY Rx# [id number] Last Released: 06/02/23 Qty/Days Supply: 180 Rx Expiration Date: 05/17/24 Refills Remainin OUTPT PREDNISONE 50MG TAB (Status = Active) TAKE ONE TABLET BY MOUTH ONCE DAILY FOR BRONCHITIS Rx# [id number] Last Released: 09/23/23 Qty/Days Supply: 10/17 Rx Expiration Date: 10/23/23 Refills Remainin Indication: BRONCHITIS OUTPT SEMAGLUTIDE 1MG/0.75ML INJ PEN 3ML (Status = Active) INJECT 1MG SUBCUTANEOUSLY ONCE A WEEK FOR TYPE 2 DIABETES MELLITUS Rx# [id number] Last Released: 10/08/23 Qty/Days Supply: 07/12 Rx Expiration Date: 06/10/24 Refills Remainin Indication: FOR TYPE 2 DIABETES MELLITUS OUTPT SIMVASTATIN 80MG TAB (Status = Active/Suspended) TAKE ONE-HALF TABLET BY MOUTH ONCE DAILY FOR CHOLESTEROL Rx# [id number] Last Released: 07/30/23 Qty/Days Supply: Rx Expiration Date: 05/17/24 Refills Remainin SUPPLIES OUTPT ACCU-CHEK GUIDE (GLUCOSE) TEST STRIP (Status = Active) USE 1 STRIP TO TEST BLOOD SUGARS TWICE DAILY Rx# [id number] Last Released: 05/05/23 Qty/Days Supply: 50/180 Rx Expiration Date: 04/28/24 Refills Remainin Indication: DIABETES OUTPT ACCU-CHEK GUIDE ME (GLUCOSE) METER (Status = ) USE METER TO TEST BLOOD SUGARS ONCE DAILY Rx# [id number] Last Released: 04/29/23 Qty/Days Supply: Rx Expiration Date: 07/27/23 Refills Remainin Indication: DIABETES OUTPT AEROCHAMBER Z-STAT PLUS (Status = Active) USE CHAMBER EVERY 6 HOURS NEEDED WITH ALBUTEROL INHALER Rx# [id number] Last Released: 09/25/23 Qty/Days Supply: 06/24 Rx Expiration Date: 10/23/23 Refills Remainin OUTPT GLUCOSE SENSOR DEXCOM G7 (Status = Discontinued) USE 1 SENSOR DIRECTED EVERY 10 DAYS Rx# [id number] Last Released: 07/01/23 Qty/Days Supply: Rx Expiration Date: 04/28/24 Refills Remainin OUTPT GLUCOSE SENSOR DEXCOM G7 (Status = Active/Suspended) USE 1 SENSOR DIRECTED EVERY 10 DAYS Rx# [id number] Last Released: 08/05/23 Qty/Days Supply: Rx Expiration Date: 08/05/24 Refills Remainin OUTPT INSULIN SYRINGE 0.5ML 30G 12MM (Status = Active) USE 1 SYRINGE SUBCUTANEOUSLY TWICE DAILY FOR INSULIN INJECTIONS Rx# [id number] Last Released: 09/15/23 Qty/Days Supply: 200/90 Rx Expiration Date: 06/10/24 Refills Remainin OUTPT LANCET,SOFTCLIX (Status = Active) USE 1 LANCET TOPICALLY ONCE DAILY TO TEST BLOOD SUGAR Rx# [id number] Last Released: 05/05/23 Qty/Days Supply: 200/90 Rx Expiration Date: 04/28/24 Refills Remainin Indication: DIABETES OUTPT SKIN BARRIER WIPE TORBOT SKIN TAC (Status = Active) USE 1 WIPE TOPICALLY EVERY 10 DAYS Rx# [id number] Last Released: 03/26/23 Qty/Days Supply: 50/90 Rx Expiration Date: 03/24/24 Refills Remainin Declines printed copy of medication list now. /radhames/ Koffi Hunter OD CHIEF OF OPTOMETRY Signed: 10/14/2023 09:14 SHELL SHARIF CNTRL [facility]
--- OUTSIDE RECORDS SUMMARY | 2024-06-01 14:07 | XMS_ITS ---
Author Name Department of Vetera Affairs ([place]) Organization Department of Vetera [place] ([place] Address [address] [place] [id number] Care Team Providers Care Mica Sizer Name Role Phone MARGARITA FLOREZ Primary Care [...] Relationship to Policy Bejarano ALVA BC[place] [facility] [place] [facility] Dec 13, 2013 [id number] DAGMAR,ZIA ERT PATIENT BCBS [place] MEDICARE SUPPLEMEN [facility] November 06, 2007 [id number] [phone] DAGMAR,ZIA ERT PATIENT [place] MED[place] SUPPLEMEN [facility] MEDEX 2 November 06, 2007 [id number] DAGMAR,ZIA ERT PATIENT [place] SUPPLE[place] [facility] MEDEX 2 November 06, 2007 [id number] DAGMAR,ZIA ERT PATIENT BCBS OF [facility] MEDICARE SUPPLEMEN [facility] Dec 13, 2013 [id number] [phone] DAGMAR,ZIA ERT PATIENT [place] MED[place] SUPPLEMEN [facility] AN/MX Dec 13, 2008 [id number] DAGMAR,ZIA ERT PATIENT MEDICARE (WNR) MEDICARE () PART B May 15, 2012 PART B [id number] [phone] DAGMAR,ZIA ERT PATIENT MEDICARE (WNR) MEDICARE () PART A May 15, 2002 PART A [id number] [phone] DAGMAR,ZIA ERT PATIENT MEDICARE (WNR) MEDICARE () PART A May 15, 2002 PART A [id number] [phone] DAGMAR,ZIA ERT PATIENT MEDICARE (WNR) MEDICARE () PART B May 15, 2002 PART B [id number] DAGMAR,ZIA ERT PATIENT MEDICARE (WNR) MEDICARE () PART A May 15, 2002 PART A [id number] [phone] DAGMAR,ZIA ERT PATIENT MEDICARE (WNR) MEDICARE () PART B May 15, 2002 PART B [id number] DAGMAR,ZIA ERT PATIENT MEDICARE (WNR) MEDICARE () PART A May 15, 2002 PART A [id number] DAGMAR,ZIA ERT PATIENT MEDICARE (WNR) MEDICARE () PART B May 15, 2002 PART B [id number] [phone] DAGMAR,ZIA ERT PATIENT Selected [...] AMBULATORY - MEDICINE [place] [facility] October 16, 2023 01:00 PM AMBULATORY - MEDICINE [place] C [facility] [place] [facility] Dec 15, 2023 02:30 PM AMBULATORY - MEDICINE [place] Dec 30, 2023 03:00 PM AMBULATORY - MEDICINE DC C [facility] [place] [facility] Mar 02, 2024 03:00 PM [facility] Lab Results: +/- 30 days [...] Range Comment Sep 23, 2023 01:35 PM [place] COVID-19 FLU/RSV DIAGNOSTIC PANEL Speci men Type: NASOPHARYNX Comment: This test is authorized for emergency use only. False negative results may occur if virus is present at levels below the analytical limit of detection.Nega tive results do not preclude SARS-CoV-2, influenza or RSV infection and should not be used as the sole basis for treatment or other patient management decisions.[facility] mone FLUVID: HCPs: https://www.fd a.gov/media/ 1327/download. Patients: https://www.fd a.gov/media/ 7742/download Ordering Provider: CHATO ADHIKARI Report Released Date/Time: Sep 23, 2023 01:14 PM Reporting Lab: [address] [address] Performing Lab: [address] [address] COVID-19 PCR (FLUVID) NEGATIVE NEGATIVE FLU A PCR (FLUVID) NEGATIVE FLU B PCR (FLUVID) NEGATIVE RSV PCR (FLUVID) NEGATIVE Sep 16, 2023 01:56 PM [facility] HEMOGLOBIN A1C PANEL Specimen Type: BLOOD [...] Sep 16, 2023 01:09 PM Reporting Lab: [address] [address] Performing Lab: [address] [address] HEMOGLOBIN A1C 6.8 H 4.0-5.6 Sep 16, 2023 01:56 PM [facility] BASIC METABOLIC PANEL (non-fasting) Specimen Type: SERUM No comment entered. Ordering Provider: NIK GILL Report Released Date/Time: Sep 16, 2023 01:09 PM Reporting Lab: [address] [address] Performing Lab: [address] [address] UREA NITROGEN 25 mg/dL 7-25 GLUCOSE 234 mg/dL H 65-100 SODIUM 140 mmol/L 135-145 POTASSIUM 5.0 mmol/L 3.5-5.0 CHLORIDE 106 mmol/L 100-110 CO2 23 meq/L 20-30 CREATININE, Serum 1.80 mg/dL H 0.50-1.40 eGFR(CKD-EPI 2020) 36 mL/min L >60 Sep 16, 2023 01:56 PM [facility] CBC Specimen Type: BLOOD No comment entered. Ordering Provider: NIK GILL Report Released Date/Time: Sep 16, 2023 01:09 PM Reporting Lab: [address] [address] Performing Lab: [facility] [address] [facility] [address] WBC 7.86 10*3/uL 4.50-11.00 RBC 4.28 10*6/uL [...] 15, 2022 01:00 PM VA-TOBACCO NEVER USED [facility] Radiology Reports: +/- 30 days of [...] 03:11 PM CHEST (2 VIEWS): ORLY LEAVITT [id number] -[id number] M Ex Date: SEP 24, 2023@15:11 Req Phys: CHATO ADHIKARI Loc: CWM/SO/SICK CALL OIL TREATER (Req'g Loc Img Loc: [facility]/BUILDING 1 Service: Unknown (Case 377 COMPLETE) CHEST (2 VIEWS) (RAD Detailed) CPT:31668 Reason for Study: wheezing, cough, SOB Clinical History: Covering resident, fellow, OIL TREATER or attending: Chato Adhikari NP DC Pager: [phone] Backup pager: History: Report Status: Verified Date Reported: SEP 24, 2023 Date Verified: SEP 24, 2023 Grain Shipper E-Sig:/ES/LATRICE DUNBAR JR Report: Study: PA and [...] Primary Interpreting Staff: LATRICE DUNBAR JR, Radiologist (Grain Shipper) /LATRICE BAGLEY JR [facility] Encounter Notes: All associated encounter notes [...] COMPLETED <====Click to Start Advanced Medical Support [place] presents to the Primary Care clinic with the following request: [ ]Medication Renewal/Refill [ ]Consultation with Team RN [ X ]Symptoms [ ]Other The [place] states they are: [ X ]Waiting [ ]Not Waiting Yes Walk in visit scheduled with PACT Nurse [ X ] At this encounter the 's demographics were verified. [ X ] At this encounter the [place]'s Insurance information was verified. [ X ] At this encounter the below scheduled visits for the were discussed and appointment reminder card was offered. Future appointments: 09/30/2023 13:00 CWM/NO/COMP PEN AUDIO 09/30/2023 15:00 CWM/SO/PODIATRY/ROSS 10/13/2023 13:00 NHM/OPTOMETRY/DALE 12/15/2023 14:30 CWM/SO/PACT 5 12/30/2023 15:00 CWM/SO/PHARM/PACT 2 is here with cold symptoms, cough, sore throat and congesetion. /es/ KLEBER CYR ADVANCED TECHNICAL SERVICES ASSISTANT Signed: 09/23/2023 12:53 Receipt Acknowledged By: 09/23/2023 12:59 /es/ SARTHAK TIDWELLN,RN-BC REGISTERED NURSE (RN) for LENNOX PEARCE 09/23/2023 13:03 /es/ CHATO ADHIKARI APRN-[place] CERTIFIED NURSE PRACTITIONER 09/23/2023 14:46 /es/ KIP HEAD, TELEVISION SCHEDULE COORDINATOR RN KLEBER CYR
--- OUTSIDE RECORDS SUMMARY | 2024-06-01 14:07 | XMS_ITS ---
Author Name [facility] [place] [facility] [place] Address [address] [place] [address] Care Team Providers Care Biazzi Nitrator Operator Name Role Phone MARGARITA FLOREZ Primary [...] Policy Bejarano [place] MEDICARE SUPPLEMEN [facility] Dec 13, 2013 [id number] [phone] DAGMAR,ZIA ERT PATIENT [place]BS [place] MEDICARE SUPPLEMEN [facility] November 06, 2007 [id number] DAGMAR,ZIA ERT PATIENT [place]BS [place] MEDIC[place] SUPPLEMEN [facility] November 06, 2007 [id number] DAGMAR,ZIA ERT PATIENT [place] MED[place] SUPPLEMEN [facility] November 06, 2007 [id number] [phone] DAGMAR,ZIA ERT PATIENT BCBS OF [facility] MEDICARE SUPPLEMEN [facility] Dec 13, 2013 [id number] DAGMAR,ZIA ERT PATIENT [facility] [place] MEDIC[place] SUPPLEMEN [facility]/ WHITM AN/MX Dec 13, 2008 [id number] DAGMAR,ZIA ERT PATIENT MEDICARE (WNR) MEDICARE () PART B May 15, 2012 PART B [id number] DAGMAR,ZIA ERT PATIENT MEDICARE (WNR) MEDICARE () PART A May 15, 2002 PART A [id number] [phone] DAGMAR,ZIA ERT PATIENT MEDICARE (WNR) MEDICARE (M) PART B May 15, 2002 PART B [id number] DAGMAR,ZIA ERT PATIENT MEDICARE (WNR) MEDICARE () PART A May 15, 2002 PART A [id number] DAGMAR,ZIA ERT PATIENT MEDICARE (WNR) MEDICARE () PART B May 15, 2002 PART B [id number] DAGMAR,ZIA ERT PATIENT MEDICARE (WNR) MEDICARE (M) PART A May 15, 2002 PART A [id number] DAGMAR,ZIA ERT PATIENT MEDICARE (WNR) MEDICARE () PART B May 15, 2002 PART B [id number] DAGMAR,ZIA ERT PATIENT MEDICARE (WNR) MEDICARE () PART A May 15, 2002 PART A [id number] DAGMAR,ZIA ERT PATIENT Selected [...] of spectacles and contact lenses ALICIA RO [facility] Plan of Treatment: Future Appointments (+ [...] 16, 2023 01:00 PM [facility] Dec 15, 2023 02:30 PM [facility] Dec 30, 2023 03:00 PM [facility] Mar 02, 2024 03:00 PM AMBULATORY - MEDICINE [facility] Lab Results: +/- [...] Range Comment Sep 23, 2023 01:35 PM [facility] COVID-19 FLU/RSV DIAGNOSTIC PANEL Speci men Type: NASOPHARYNX Comment: This test is authorized for emergency use only. False negative results may occur if virus is present at levels below the analytical limit of detection.Nega tive results do not preclude SARS-CoV-2, influenza or RSV infection and should not be used as the sole basis for treatment or other patient management decisions.[facility] mone FLUVID: HCPs: https://www.fd a.gov/media/ 6122/download. Patients: https://www.PanOptica a.gov/media/ 9456/download Ordering Provider: CHATO ADHIKARI Report Released Date/Time: Sep 23, 2023 01:14 PM Reporting Lab: [address] [address] Performing Lab: [place] [address] [address] COVID-19 PCR (FLUVID) NEGATIVE NEGATIVE FLU A PCR (FLUVID) NEGATIVE FLU B PCR (FLUVID) NEGATIVE RSV PCR (FLUVID) NEGATIVE Sep 16, 2023 01:56 PM [facility] HEMOGLOBIN A1C PANEL Specimen Type: BLOOD [...] Sep 16, 2023 01:09 PM Reporting Lab: [address] [address] Performing Lab: [address] [address] HEMOGLOBIN A1C 6.8 H 4.0-5.6 Sep 16, 2023 01:56 PM [facility] BASIC METABOLIC PANEL (non-fasting) Specimen Type: SERUM No comment entered. Ordering Provider: NIK GILL Report Released Date/Time: Sep 16, 2023 01:09 PM Reporting Lab: [address] [address] Performing Lab: [address] [address] UREA NITROGEN 25 mg/dL 7-25 GLUCOSE 234 mg/dL H 65-100 SODIUM 140 mmol/L 135-145 POTASSIUM 5.0 mmol/L 3.5-5.0 CHLORIDE 106 mmol/L 100-110 CO2 23 meq/L 20-30 CREATININE, Serum 1.80 mg/dL H 0.50-1.40 eGFR(CKD-EPI 2020) 36 mL/min L >60 Sep 16, 2023 01:56 PM [facility] CBC Specimen Type: BLOOD No comment entered. 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 (Req'g Loc Img Loc: [facility] 1 Service: Unknown (Case [id number] COMPLETE) CHEST (2 VIEWS) (RAD Detailed) CPT:46112 Reason for Study: wheezing, cough, SOB Clinical History: Covering resident, fellow, HUMAN RESOURCES DEPARTMENT SUPERVISOR or attending: Chato Adhikari NP [place] Pager: [phone] Backup pager: History: Report Status: Verified Date Reported: SEP 24, 2023 Date Verified: SEP 24, 2023 Granulator Tender E-Sig:/ES/LATRICE DUNBAR JR Report: Study: PA [...] DUNBAR JR, Radiologist (Lizzy) /LATRICE BAGLEY JR [facility] Encounter Notes: All associated encounter notes [...] Dir: Prz2:0.00 Dir2: FITTING INFORMATION FPD: NPD: [place]:R:35 L:32 SEG HT:R: L: Tint:None Shade:None VA [...] Dir: Prz2:0.00 Dir2: FITTING INFORMATION FPD: NPD: [place]:R:31.5 L:30.0 SEG HT:R: L: Tint:None Shade:None VA Billable Items FRAME: MONTRELL ARAYAMETAL Right Lens: POLY SINGLE VISION 1.586 POLY Left Lens: POLY SINGLE VISION 1.586 POLY KLEAR ANTI-REFLECTIVE COATING /radhames/ BIRGIT HAJI INSURANCE CLAIMS EXAMINER Signed: 10/13/2023 14:13 Receipt Acknowledged By: 10/13/2023 14:20 /radhames/ Alicia [facility] Al[employer]um Sheet 10/13/2023 ADDENDUM STATUS: 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 OPT HT entered consult(s) as requested for provider signature. /radhames/ [facility] Aluminum Sheet Signed: 10/13/2023 14:22 BIRGIT HAJI [facility]
--- OUTSIDE RECORDS SUMMARY | 2024-06-01 14:08 | XMS_ITS | Encounter Summary ---
Author Name [facility] [place] Address [address] [place] [address] Care Team Providers Care Concreter Name Role Phone MARGARITA FLOREZ Primary Care [...] Policy Bejarano ALVA [place] OF [place] MEDICARE SUPPLEMEN [facility] Dec 13, 2013 [id number] [phone] DAGMAR,ZIA ERT PATIENT [place]BS [place] MEDICARE SUPPLEMEN [facility] November 06, 2007 [id number] DAGMAR,ZIA ERT PATIENT [place] MED[place] SUPPLEMEN [facility] 2 November 06, 2007 [id number] DAGMAR,ZIA ERT PATIENT [place] MED[place] SUPPLEMEN [facility] November 06, 2007 [id number] DAGMAR,ZIA ERT PATIENT BCBS OF [facility] MEDICARE SUPPLEMEN [facility] Dec 13, 2013 [id number] DAGMAR,ZIA ERT PATIENT BCBS OF [facility] MEDICARE SUPPLEMEN [facility] MMHG/ WHITM AN/MX Dec 13, 2008 [id number] DAGMAR,ZIA ERT PATIENT MEDICARE (WNR) MEDICARE () PART B May 15, 2012 PART B [id number] DAGMAR,ZIA ERT PATIENT MEDICARE (WNR) MEDICARE () PART A May 15, 2002 PART A [id number] DAGMAR,ZIA ERT PATIENT MEDICARE (WNR) MEDICARE () PART B May 15, 2002 PART B [id number] DAGMAR,ZIA ERT PATIENT MEDICARE (WNR) MEDICARE () PART A May 15, 2002 PART A [id number] DAGMAR,ZIA ERT PATIENT MEDICARE (WNR) MEDICARE () PART B May 15, 2002 PART B [id number] DAGMAR,ZIA ERT PATIENT MEDICARE (WNR) MEDICARE () PART A May 15, 2002 PART A [id number] DAGMAR,ZIA ERT PATIENT MEDICARE (WNR) MEDICARE () PART B May 15, 2002 PART B [id number] DAGMAR,ZIA ERT PATIENT MEDICARE (WNR) MEDICARE () PART A May 15, 2002 PART A [id number] DAGMAR,ZIA ERT PATIENT Selected Encounter This section includes the information on record at [place] for the Encounter. Date/Time Encounter Type Encounter [...] 20 appointments. The data comes from all [place] treatment facilities. Appointment Date/Time Appointment Type Appointme nt Facility Name Sep 23, 2023 01:00 PM [facility]ORY - [facility]IC[facility] Sep 23, 2023 01:15 PM [facility] - [facility]IC[place] [facility] Sep 30, 2023 03:00 PM [facility] [facility] Sep 30, 2023 03:15 PM [facility] [facility] Oct 13, 2023 01:00 PM AM[place]ULATORY [place]IC[place] [facility] [place] [facility] October 16, 2023 01:00 PM AMBULATORY [place] MEDICINE [place] [facility] [place] [facility] Dec 15, 2023 02:30 PM [facility] Dec 30, 2023 03:00 PM AMBULATORY - MEDICINE [place] [facility] [place] [facility] Mar 02, 2024 03:00 PM [facility] Lab Results: +/- 30 days of the encounter This section includes the Chemistry and Hematology Lab Results on record with [place] for the patient. Radiology Reports and Pathology Reports are provided separately, in subsequent sections. Lab Results This section contains the Chemistry/Hematology Results that were resulted 30 days before or 30 daysafter the date of the Encounter. Date/Time Source Result Type Result - Unit Interpretation Reference Range Comment Sep 23, 2023 01:35 PM [place] COVID-19 FLU/RSV DIAGNOSTIC PANEL Speci men Type: NASOPHARYNX Comment: This test is authorized for emergency use only. False negative results may occur if virus is present at levels below the analytical limit of detection.Nega tive results do not preclude SARS-CoV-2, influenza or RSV infection and should not be used as the sole basis for treatment or other patient management decisions.[facility] mone FLUVID: HCPs: https://www.fd a.gov/media/ 0443/download. Patients: https://www.Withings a.gov/media/ 078/download Ordering Provider: SAMREEN ADHIKARI Report Released Date/Time: Sep 23, 2023 01:14 PM Reporting Lab: [place] [facility] [place] [address] [address] Performing Lab: [address] [address] COVID-19 PCR (FLUVID) NEGATIVE NEGATIVE FLU A PCR (FLUVID) NEGATIVE FLU B PCR (FLUVID) NEGATIVE RSV PCR (FLUVID) NEGATIVE Sep 16, 2023 01:56 PM [facility] HEMOGLOBIN A1C PANEL Specimen Type: [...] Sep 16, 2023 01:09 PM Reporting Lab: [address] [address] Performing Lab: [address] [address] HEMOGLOBIN A1C 6.8 H 4.0-5.6 Sep 16, 2023 01:56 PM [facility] BASIC METABOLIC PANEL (non-fasting) Specimen Type: SERUM No comment entered. Ordering Provider: NIK GILL Report Released Date/Time: Sep 16, 2023 01:09 PM Reporting Lab: [address] [address] Performing Lab: [address] [address] UREA NITROGEN 25 mg/dL 7-25 GLUCOSE 234 mg/dL H 65-100 SODIUM 140 mmol/L 135-145 POTASSIUM 5.0 mmol/L 3.5-5.0 CHLORIDE 106 mmol/L 100-110 CO2 23 meq/L 20-30 CREATININE, Serum 1.80 mg/dL H 0.50-1.40 eGFR(CKD-EPI 2020) 36 mL/min L >60 Sep 16, 2023 01:56 PM [facility] CBC Specimen Type: BLOOD No comment entered. Ordering Provider: NIK GILL Report Released Date/Time: Sep 16, 2023 01:09 PM Reporting Lab: [facility] [address] [facility] [address] Performing Lab: [facility] [address] [address] WBC 7.86 10*3/uL 4.50-11.00 RBC 4.28 10*6/uL [...] and tobacco- related health factors from the [place] facility where the Encounter took place. Current Smoking Status This section includes the most current smoking, or tobacco-related health factor, from the [place] facility where the Encounter took place. Date/Time Current Smoking Status Comment Facil ity Apr 15, 2022 01:00 PM VA-TOBACCO NEVER USED [facility] Radiology Reports: +/- 30 days of [...] the Encounter. The data comes from all [place] treatment facilities. 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 (Req'g Loc Img Loc: [facility] 1 Service: Unknown (Case [id number] COMPLETE) CHEST (2 VIEWS) (RAD Detailed) CPT:06035 Reason for Study: wheezing, cough, SOB Clinical History: Covering resident, fellow, ADDICTION TREATMENT COUNSELOR or attending: Samreen Adhikari NP [place] Pager: [phone] Backup pager: History: Report Status: Verified Date Reported: SEP 24, 2023 Date Verified: SEP 24, 2023 [place] E-Sig:/ES/LATRICE DUNBAR JR Report: Study: PA and [...] Primary Interpreting Staff: LATRICE DUNBAR JR, Radiologist ([place]) /LATRICE BAGLEY JR [place] [facility]
--- OUTSIDE RECORDS SUMMARY | 2024-06-01 14:08 | XMS_ITS | Encounter Summary ---
Author Name [place] Address [address] [place] [address] Care Team Providers Care Wave Solder Offbearer Name Role Phone MARGARITA FLOREZ Primary Care [...] Relationship to Policy Bejarano ALVA BC[place] OF [place] [facility] Dec 13, 2013 [id number] DAGMAR,ZIA ERT PATIENT [place]BS [place] MEDICARE SUPPLEMEN [facility] November 06, 2007 [id number] DAGMAR,ZIA ERT PATIENT [place]BS [place] MED[place] SUPPLEMEN [facility] 2 November 06, 2007 [id number] DAGMAR,ZIA ERT PATIENT [place] MED[place] SUPPLEMEN [facility] 2 November 06, 2007 [id number] DAGMAR,ZIA ERT PATIENT BCBS OF [facility] MEDICARE SUPPLEMEN [facility] Dec 13, 2013 [id number] DAGMAR,ZIA ERT PATIENT [place] SUPPLEMEN [facility]/ WHITM AN/MX Dec 13, 2008 [id number] DAGMAR,ZIA ERT PATIENT MEDICARE (WNR) MEDICARE () PART B May 15, 2012 PART B [id number] DAGMAR,ZIA ERT PATIENT MEDICARE (WNR) MEDICARE () PART A May 15, 2002 PART A [id number] DAGMAR,ZIA ERT PATIENT MEDICARE (WNR) MEDICARE (M) PART B May 15, 2002 PART B [id number] DAGMAR,ZIA ERT PATIENT MEDICARE (WNR) MEDICARE () PART A May 15, 2002 PART A [id number] [phone] DAGMAR,ZIA ERT PATIENT MEDICARE (WNR) MEDICARE () PART B May 15, 2002 PART B [id number] [phone] DAGMAR,ZIA ERT PATIENT MEDICARE (WNR) MEDICARE () PART A May 15, 2002 PART A [id number] [phone] DAGMAR,ZIA ERT PATIENT MEDICARE (WNR) MEDICARE () PART B May 15, 2002 PART B [id number] DAGMAR,ZIA ERT PATIENT MEDICARE (WNR) MEDICARE () PART A May 15, 2002 PART A [id number] DAGMAR,ZIA ERT PATIENT Selected Encounter This [...] 2023 02:30 PM AMBULATORY - MEDICINE [facility] Dec 30, 2023 03:00 PM AMBULATORY - MEDICINE [facility] Mar 02, 2024 03:00 PM AMBULATORY - MEDICINE [facility] Lab Results: +/- 30 [...] Range Comment Sep 23, 2023 01:35 PM [facility] COVID-19 FLU/RSV DIAGNOSTIC PANEL Speci men Type: NASOPHARYNX Comment: This test is authorized for emergency use only. False negative results may occur if virus is present at levels below the analytical limit of detection.Nega tive results do not preclude SARS-CoV-2, influenza or RSV infection and should not be used as the sole basis for treatment or other patient management decisions.[facility] mone FLUVID: HCPs: https://www.fd a.gov/media/ 5230/download. Patients: https://www.AdYapper a.gov/media/ 3284/download Ordering Provider: SAMREEN ADHIKARI Report Released Date/Time: Sep 23, 2023 01:14 PM Reporting Lab: [address] [address] Performing Lab: [address] [address] COVID-19 PCR (FLUVID) NEGATIVE NEGATIVE FLU A [...] 28, 2023 03:00 PM VA-TOBACCO NEVER USED [facility] Tobacco Use History This section includes a history of the smoking, or tobacco-related health factors, that were collected on or before the date of the Encounter. The data comes from the [place] facility where the Encounter took place. Date/Time Smoking Status/Tobacco Use Comment F acility Apr 09, 2021 10:00 AM VA-TOBACCO NEVER USED [facility] Mar 13, 2020 12:30 PM VA-TOBACCO NEVER USED [facility] Feb 02, 2018 02:02 PM VA-TOBACCO NEVER USED [facility] Mar 10, 2017 01:57 PM LIFETIME NON-TOBACCO USER [facility] Feb 11, 2016 02:44 PM LIFETIME NON-TOBACCO USER [facility] May 09, 2009 09:43 AM LIFETIME NON-TOBACCO USER [facility] Radiology Reports: +/- 30 days of the [...] the Encounter. The data comes from all [facility] facilities. 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 (Req'g Loc Img Loc: [facility] 1 Service: Unknown (Case [id number] COMPLETE) CHEST (2 VIEWS) (RAD Detailed) CPT:11535 Reason for Study: wheezing, cough, SOB Clinical History: Covering resident, fellow, LANDSCAPE ARCHITECTURE PROFESSOR or attending: Samreen Adhikari NP [place] Pager: [phone] Backup pager: History: Report Status: Verified Date Reported: SEP 24, 2023 Date Verified: SEP 24, 2023 [place] E-Sig:/ES/LATRICE DUNBAR JR Report: Study: PA and [...] Primary Interpreting Staff: LATRICE DUNBAR JR, Radiologist ([place]) /LATRICE BAGLEY JR [place] CNT [facility] Encounter Notes: All associated encounter notes [...]
--- OUTSIDE RECORDS SUMMARY | 2024-06-01 14:08 | XMS_ITS | Encounter Summary ---
Author Name [facility] [place] Address [address] [place] [id number] Care Team Providers Care External Grinder Tender Name Role Phone MARGARITA FLOREZ Primary Care [...] Relationship to Policy Bejarano ALVA [place] [facility] Dec 13, 2013 [id number] [phone] DAGMAR,ZIA ERT PATIENT [place] MEDICARE SUPPLEMEN [facility] November 06, 2007 [id number] DAGMAR,ZIA ERT PATIENT [place] MED[place] SUPPLEMEN [facility] November 06, 2007 [id number] DAGMAR,ZIA ERT PAT[place] [facility] 2 November 06, 2007 [id number] DAGMAR,ZIA ERT PATIENT BCBS OF [facility] MEDICARE SUPPLEMEN [facility] Dec 13, 2013 [id number] DAGMAR,ZIA ERT PATIENT [place] [facility] AN/MX Dec 13, 2008 [id number] DAGMAR,ZIA ERT PATIENT MEDICARE (WNR) MEDICARE () PART B May 15, 2012 PART B [id number] DAGMAR,ZIA ERT PATIENT MEDICARE (WNR) MEDICARE () PART A May 15, 2002 PART A [id number] DAGMAR,ZIA ERT PATIENT MEDICARE (WNR) MEDICARE () PART B May 15, 2002 PART B [id number] DAGMAR,ZIA ERT PATIENT MEDICARE (WNR) MEDICARE () PART A May 15, 2002 PART A [id number] DAGMAR,ZIA ERT PATIENT MEDICARE (WNR) MEDICARE () PART B May 15, 2002 PART B [id number] DAGMAR,ZIA ERT PATIENT MEDICARE (WNR) MEDICARE () PART A May 15, 2002 PART A [id number] DAGMAR,ZIA ERT PATIENT MEDICARE (WNR) MEDICARE () PART B May 15, 2002 PART B [id number] DAGMAR,ZIA ERT PATIENT MEDICARE (WNR) MEDICARE () PART A May 15, 2002 PART A [id number] [phone] DAGMAR,ZIA ERT PATIENT Selected Encounter This [...] Type 2 diabetes mellitus without complications [facility] Jan 25, 2024 08:49 AM SECONDARY Abnormal findings on diagnostic imaging of prt ms sys NADAZDIN-BOSKO 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 [facility] Jan 25, 2024 08:49 AM SECONDARY Chronic kidney disease, stage 3 unspecified SWATIAZDIN-BOSKO CHELLY,[facility] Jan 25, 2024 08:49 AM SECONDARY Deficiency of other specified B group vitamins [facility] Jan 25, 2024 08:49 AM SECONDARY Diarrhea, unspecified NADAZDIN-BOSKO CHELLY,[facility] Jan 25, 2024 08:49 AM SECONDARY Essential (primary) hypertension SWATIAZDIN-BOSKO CHELLY,[facility] Jan 25, 2024 08:49 AM SECONDARY Gastro-esophageal reflux disease without esophagitis [facility] Jan 25, 2024 08:49 AM SECONDARY Hypomagnesemia NADAZDIN-BOSKO CHELLY,[facility] Jan 25, 2024 08:49 AM SECONDARY Insomnia, unspecified NADAZDIN-BOSKO CHELLY,[facility] Jan 25, 2024 08:49 AM SECONDARY Malignant neoplasm of prostate NADAZDIN-BOSKO CHELLY,[facility] Jan 25, 2024 08:49 AM SECONDARY Mixed hyperlipidemia NADAZDIN-BOSKO CHELLY,[facility] Jan 25, 2024 08:49 AM SECONDARY Obstructive sleep apnea (adult) (pediatric) NADAZDIN-BOSKO CHELLY,[facility] Jan 25, 2024 08:49 AM SECONDARY Personal history of diseases of the ms sys and conn tiss NADAZDIN-BOSKO CHELLY,OGNJENKA M [place] Jan 25, 2024 08:49 AM SECONDARY Type 2 diabetes mellitus with diabetic neuropathy, unsp MARGARITA DIAMOND [place] Jan 25, 2024 08:49 AM SECONDARY Venous insufficiency (chronic) (peripheral) MARGARITA DIAMOND [place] Plan of Treatment: Future Appointments (+ 6 months) and Future Tests (+/- 45 days) The Plan of Treatment section includes [facility] care activities [facility] the [facility] [place] [facility] This section includes future appointments [...] 30, 2023 03:00 PM AMBULATORY - MEDICINE [facility] Mar 02, 2024 03:00 PM AMBULATORY - MEDICINE [facility] Apr 27, 2024 10:00 AM AMBULATORY - MEDICINE [facility] Lab Results: +/- 30 days of the [...] Range Comment Nov 25, 2023 09:49 AM [place] PSA Specimen Type: SERUM No comment entered. Ordering Provider: MARGARITA DIAMOND Report Released Date/Time: Sep 15, 2023 01:00 PM Reporting Lab: [facility] [address] [address] Performing Lab: [facility] [address] [address] PSA 1.00 ng/mL 0.00-4.00 Nov 25, 2023 09:49 AM [place] VITAMIN D (25-[place]) Specimen Type: SERUM No comment entered. Ordering Provider: MARGARITA DIAMOND Report Released Date/Time: Sep 15, 2023 12:57 PM Reporting Lab: [facility] [address] Performing Lab: [facility] [address] VITAMIN D (25-OH) 28 ng/mL 20-50 Nov 25, 2023 09:49 AM [place] HEMOGLOBIN A1C PANEL Specimen Type: BLOOD Comment: [...] 12:57 PM Reporting Lab: [facility] [address] [address] Performing Lab: [facility] [address] HEMOGLOBIN A1C 6.7 H 4.0-5.6 Nov 25, 2023 09:49 AM [place] FERRITIN Specimen Type: SERUM No comment entered. Ordering Provider: MARGARITA DIAMOND Report Released Date/Time: Sep 15, 2023 12:57 PM Reporting Lab: [facility] [address] Performing Lab: [facility]ITALUSETS [address] [address] FERRITIN 38 ng/mL 20-300 Nov 25, 2023 09:49 AM [place] LIVER FUNCTION Specimen Type: SERUM No comment entered. Ordering Provider: MARGARITA DIAMOND Report Released Date/Time: Sep 15, 2023 12:57 PM Reporting Lab: [facility] [address] Performing [facility]: [facility] [address] PROTEIN,TOTAL 6.8 g/dL 6.0-8.3 ALBUMIN 3.6 g/dL 3.5-5.0 ALKALINE PHOSPHATASE 38 U/L L 40-150 AST 21 U/L 5-34 ALT 21 U/L BILIRUBIN, TOTAL 0.4 mg/dL 0.2-1.2 Nov 25, 2023 09:49 AM [place] MAGNESIUM Specimen Type: SERUM No comment entered. Ordering Provider: MARGARITA DIAMOND Report Released Date/Time: Sep 15, 2023 12:57 PM Reporting Lab: [facility] [address] [address] Performing Lab: [address] [address] MAGNESIUM 1.6 mg/dL 1.6-2.6 Nov 25, 2023 09:49 AM [place] LIPID PANEL, NON FASTING Specimen Type: SERUM No comment entered. Ordering Provider: MARGARITA DIAMOND Report Released Date/Time: Sep 15, 2023 12:57 PM Reporting Lab: [facility] [address] [address] Performing Lab: [address] [address] CHOLESTEROL 120 mg/dL TRIGLYCERIDE 191 mg/dL H 0-150 LDL calculated 46 mg/dL 0-129 CHOL/HDL 3.3 HDL CHOLESTEROL 36 mg/dL L 40-60 Nov 25, 2023 09:49 AM [place] IRON & TIBC PANEL Specimen Type: SERUM No comment entered. Ordering Provider: MARGARITA DIAMOND Report Released Date/Time: Sep 15, 2023 12:57 PM Reporting Lab: [address] [address] Performing Lab: [address] [address] TIBC 430 ug/dL 204-475 IRON 78 ug/dL 40-160 Transferrin Saturation 18.1 L 20.0-50.0 Nov 25, 2023 09:49 AM [place] MICROALBUMIN CREATININE RATIO PANEL Spe cimen Type: URINE No comment entered. Ordering Provider: MARGARITA DIAMOND Report Released Date/Time: Sep 15, 2023 12:57 PM Reporting Lab: [address] [address] Performing Lab: [address] [address] MICROALBUMIN/C REATININE RATIO canc mg/g 0-29.9 MICROALBUMIN,Q UANTITATIVE < 0.5 mg/dL RR UNAVAIL CREATININE URINE 57.10 mg/dL Nov 25, 2023 09:49 AM [place] CBC AND DIFF (AUTO) Specimen Type: BLOOD No comment entered. Ordering Provider: MARGARITA DIAMOND Report Released Date/Time: Sep 15, 2023 12:57 PM Reporting Lab: [address] [address] Performing Lab: [address] [address] WBC 7.72 10*3/uL 4.50-11.00 RBC 4.35 10*6/uL 4.23-5.66 HGB 12.7 g/dL L 12.8-17 HCT 39.1 L 39.2-50.4 MCV 89.9 fL 82-99 MCHC 32.5 g/dL 30.8-35.1 PLT 187 10*3/uL 140-360 RDW-CV 14.2 12.0-16.0 Larue, Abs 0.63 10*3/uL 0.30-1.10 MCH 29.2 pg 26.2-32.6 Neut % 62.7 43.7-75.8 LYMPH % 24.5 14.0-42.3 Larue % 8.2 5.1-13.7 Eos % 3.5 0.4-6.8 Baso % 0.6 0.1-2.0 Neut, Abs 4.84 10*3/uL 2.20-7.60 Lymph, Abs 1.89 10*3/uL 1.00-3.20 Eos, Abs 0.27 10*3/uL 0.03-0.44 Baso, Abs 0.05 10*3/uL 0.01-0.13 Immature Gran % 0.5 0.0-0.7 Immature Gran, Abs 0.04 10*3/uL 0.00-0.06 Nov 25, 2023 09:49 AM [place] VITAMIN B12 Specimen Type: SERUM No comment entered. Ordering Provider: MARGARITA DIAMOND Report Released Date/Time: Sep 15, 2023 12:57 PM Reporting Lab: [address] [address] Performing Lab: [address] [address] VITAMIN B12 884 pg/mL 200-900 Nov 25, 2023 09:49 AM [place] BASIC METABOLIC PANEL (non-fasting) Spe cimen Type: SERUM No comment entered. Ordering Provider: MARGARITA DIAMOND Report Released Date/Time: Sep 15, 2023 12:57 PM Reporting Lab: [address] [address] Performing Lab: [address] [address] UREA NITROGEN 29 mg/dL H 7-25 GLUCOSE [...] PM 97.9 86 129/80 96 219.8 32 [place] Social History: Smoking Status (Most [...] 28, 2023 03:00 PM VA-TOBACCO NEVER USED [place] Tobacco Use History This section includes a history of the smoking, or tobacco-related health factors, that were collected on or before the date of the Encounter. The data comes from the [place] facility where the Encounter took place. Date/Time Smoking Status/Tobacco Use Comment F acility Apr 09, 2021 10:00 AM VA-TOBACCO NEVER USED [place] Mar 13, 2020 12:30 PM VA-TOBACCO NEVER USED [place] Feb 02, 2018 02:02 PM VA-TOBACCO NEVER USED [place] Mar 10, 2017 01:57 PM LIFETIME NON-TOBACCO USER [facility] Feb 11, 2016 02:44 PM LIFETIME NON-TOBACCO USER [facility] May 09, 2009 09:43 AM LIFETIME NON-TOBACCO USER [facility] Encounter Notes: All associated encounter notes This [...] visit 09/[address] [facility] [place] [facility] [place] Other providers: [facility] --urology Dr Samaria Reed in [place] [phone]-->stop ADT -plan to restart ADT if PSA increase --Cardiology Dr Flannery q6m- last 11/2023 - endocrinology Dr. Rudolph--> Feliciano [facility] - [facility] - GI Dr. Valdez - stop screening CRC, Jenkins's (last 07/2022)RTC prn - [facility] Vascular surgery q6-12m-last 02/2023 Dr Gilbert - eye [place] - audiology [place] - podiatry [place] accompanied by his daughter Mindi ([phone]) today since last visit no change in [...] h/o stents x 6 on DAPT h/o TX x2 ECHO 01/2022 - mildly reduced LVEF, new wma since 2017 f/w cardiology 2023 lisinopril discontinued by renal Lasix 20 mg daily PAST MEDICAL HISTORY: -- HTN -- HL -- DM2 -- CAD, h/o TX x2, s/p PCI stents x6 2004:PTCA 5 TaxusStents: LADx2 RCAx2 Prox RCA x1 09-20-06: [place] Stent Presley Greenberg MD: [phone] Dr Flannery -- Other dyspnea and respiratory [...] HISTORY: -- 1957: 2 rt inguinal hernia repair/[place] -- 1958: Rt Inguinal Hernia Repair/ [facility] [...] daily FAMILY HISTORY: --DM:no --Cancer:mother colon cancer --TX:FAM HX-[facility] DIS--twin brother: CABG and valve surgery --CVA: no --Mental Health/addiction: --Other: SOCIAL HISTORY: --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 --Cohabitation: , 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 Valdez [facility]. 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
--- OUTSIDE RECORDS SUMMARY | 2024-06-01 14:08 | XMS_ITS | Encounter Summary ---
Author Name [facility] [place] Address [address] [place] [address] Care Team Providers Care Metal Tank Builder Name Role Phone MARGARITA FLOREZ Primary [...] Relationship to Policy Bejarano ALVA [place] MED[place]ARE SUPPLEMEN [facility] Dec 13, 2013 [id number] DAGMAR,ZIA ERT PATIENT [place] MED[place] SUPP[place]MEN [facility] November 06, 2007 [id number] DAGMAR,ZIA ERT PATIENT [place] [facility] 2 November 06, 2007 [id number] DAGMAR,ZIA ERT PAT[place] [facility] 2 November 06, 2007 [id number] DAGMAR,ZIA ERT PATIENT BCBS OF [facility] MEDICARE SUPPLEMEN [facility] Dec 13, 2013 [id number] [phone] DAGMAR,ZIA ERT PATIENT [facility] [place] MED[place] ROSALBA RAUSCH [facility] AN/MX Dec 13, 2008 [id number] [phone] DAGMAR,ZIA ERT PATIENT MEDICARE (WNR) MEDICARE (M) PART B May 15, 2012 PART B [id number] DAGMAR,ZIA ERT PATIENT MEDICARE (WNR) MEDICARE (M) PART A May 15, 2002 PART A [id number] DAGMAR,ZIA ERT PATIENT MEDICARE (WNR) MEDICARE (M) PART B May 15, 2002 PART B [id number] DAGMAR,ZIA ERT PATIENT MEDICARE (WNR) MEDICARE (M) PART A May 15, 2002 PART A [id number] DAGMAR,ZIA ERT PATIENT MEDICARE (WNR) MEDICARE (M) PART B May 15, 2002 PART B [id number] [phone] DAGMAR,ZIA ERT PATIENT MEDICARE (WNR) MEDICARE (M) PART A May 15, 2002 PART A [id number] DAGMAR,ZIA ERT PATIENT MEDICARE (WNR) MEDICARE (M) PART B May 15, 2002 PART B [id number] DAGMAR,ZIA ERT PATIENT MEDICARE (WNR) MEDICARE (M) PART A May 15, 2002 PART A [id number] DAGMAR,ZIA ERT PATIENT Selected Encounter This section includes the information on record at [place] for the Encounter. Date/Time Encounter Type Encounter [...] 20 appointments. The data comes from all [place] treatment facilities. Appointment Date/Time Appointment Type Appointme nt Facility Name Dec 15, 2023 02:30 PM AMBULATORY - MEDICINE [facility] Dec 30, 2023 03:00 PM [facility] [place] [facility] Mar 02, 2024 03:00 PM AMBULATORY - MEDICINE [facility] Apr 27, 2024 10:00 AM [facility] - [facility] [place] [facility] Lab Results: +/- 30 days of the encounter This section includes the Chemistry and Hematology Lab Results on record with [place] for the patient. Radiology Reports and Pathology Reports are provided separately, in subsequent sections. Lab Results This section contains the Chemistry/Hematology Results that were resulted 30 days before or 30 daysafter the date of the Encounter. Date/Time Source Result Type Result - Unit Interpretation Reference Range Comment Nov 25, 2023 09:49 AM [facility] PSA Specimen Type: SERUM No comment entered. Ordering Provider: MARGARITA DIAMOND Report Released Date/Time: Sep 15, 2023 01:00 PM Reporting Lab: [address] [address] Performing Lab: [address] [address] PSA 1.00 ng/mL 0.00-4.00 Nov 25, 2023 09:49 AM [facility] VITAMIN D (25-OH) Specimen Type: SERUM No comment entered. Ordering Provider: MARGARITA DIAMOND Report Released Date/Time: Sep 15, 2023 12:57 PM Reporting Lab: [facility] [address] [facility] [address] Performing Lab: [address] [address] VITAMIN D (25-OH) 28 ng/mL 20-50 Nov 25, 2023 09:49 AM [facility] HEMOGLOBIN A1C PANEL Specimen Type: BLOOD Comment: [...] Sep 15, 2023 12:57 PM Reporting Lab: [address] [address] Performing Lab: [facility] [address] [address] HEMOGLOBIN A1C 6.7 H 4.0-5.6 Nov 25, 2023 09:49 AM [facility] FERRITIN Specimen Type: SERUM No comment entered. Ordering Provider: MARGARITA DIAMOND Report Released Date/Time: Sep 15, 2023 12:57 PM Reporting Lab: [address] [address] Performing Lab: [facility] [address] [address] FERRITIN 38 ng/mL 20-300 Nov 25, 2023 09:49 AM [facility] LIVER FUNCTION Specimen Type: SERUM No comment entered. Ordering Provider: MARGARITA DIAMOND Report Released Date/Time: Sep 15, 2023 12:57 PM Reporting Lab: [address] [address] Performing Lab: [address] [address] PROTEIN,TOTAL 6.8 g/dL 6.0-8.3 ALBUMIN 3.6 g/dL 3.5-5.0 ALKALINE PHOSPHATASE 38 U/L L 40-150 AST 21 U/L 5-34 ALT 21 U/L BILIRUBIN, TOTAL 0.4 mg/dL 0.2-1.2 Nov 25, 2023 09:49 AM [facility] MAGNESIUM Specimen Type: SERUM No comment entered. Ordering Provider: MARGARITA DIAMOND Report Released Date/Time: Sep 15, 2023 12:57 PM Reporting Lab: [facility] [address] [facility] [address] Performing Lab: [facility] [address] [facility] [address] MAGNESIUM 1.6 mg/dL 1.6-2.6 Nov 25, 2023 09:49 AM [facility] LIPID PANEL, NON FASTING Specimen Type: SERUM No comment entered. Ordering Provider: MARGARITA DIAMOND Report Released Date/Time: Sep 15, 2023 12:57 PM Reporting Lab: [facility] [address] [facility] [address] Performing Lab: [address] [address] CHOLESTEROL 120 mg/dL TRIGLYCERIDE 191 mg/dL H 0-150 LDL calculated 46 mg/dL 0-129 CHOL/HDL 3.3 HDL CHOLESTEROL 36 mg/dL L 40-60 Nov 25, 2023 09:49 AM [facility] IRON & TIBC PANEL Specimen Type: SERUM No comment entered. Ordering Provider: MARGARITA DIAMOND Report Released Date/Time: Sep 15, 2023 12:57 PM Reporting Lab: [address] [address] Performing Lab: [address] [address] TIBC 430 ug/dL 204-475 IRON 78 ug/dL 40-160 Transferrin Saturation 18.1 L 20.0-50.0 Nov 25, 2023 09:49 AM [facility] MICROALBUMIN CREATININE RATIO PANEL Spe cimen Type: URINE No comment entered. Ordering Provider: MARGARITA DIAMOND Report Released Date/Time: Sep 15, 2023 12:57 PM Reporting Lab: [address] [address] Performing Lab: [address] [address] MICROALBUMIN/C REATININE RATIO canc mg/g 0-29.9 MICROALBUMIN,Q UANTITATIVE < 0.5 mg/dL RR UNAVAIL CREATININE URINE 57.10 mg/dL Nov 25, 2023 09:49 AM [facility] CBC AND DIFF (AUTO) Specimen Type: BLOOD No comment entered. Ordering Provider: MARGARITA DIAMOND Report Released Date/Time: Sep 15, 2023 12:57 PM Reporting Lab: [facility] [address] [facility] [address] Performing Lab: [address] [address] WBC 7.72 10*3/uL 4.50-11.00 RBC 4.35 10*6/uL 4.23-5.66 HGB 12.7 g/dL L 12.8-17 HCT 39.1 L 39.2-50.4 MCV 89.9 fL 82-99 MCHC 32.5 g/dL 30.8-35.1 PLT 187 10*3/uL 140-360 RDW-CV 14.2 12.0-16.0 [place], Abs 0.63 10*3/uL 0.30-1.10 MCH 29.2 pg 26.2-32.6 Neut % 62.7 43.7-75.8 LYMPH % 24.5 14.0-42.3 [place] % 8.2 5.1-13.7 Eos % 3.5 0.4-6.8 Baso % 0.6 0.1-2.0 Neut, Abs 4.84 10*3/uL 2.20-7.60 Lymph, Abs 1.89 10*3/uL 1.00-3.20 Eos, Abs 0.27 10*3/uL 0.03-0.44 Baso, Abs 0.05 10*3/uL 0.01-0.13 Immature Gran % 0.5 0.0-0.7 Immature Gran, Abs 0.04 10*3/uL 0.00-0.06 Nov 25, 2023 09:49 AM [facility] VITAMIN B12 Specimen Type: SERUM No comment entered. Ordering Provider: MARGARITA DIAMOND Report Released Date/Time: Sep 15, 2023 12:57 PM Reporting Lab: [address] [address] Performing Lab: [facility] [address] [facility] [address] VITAMIN B12 884 pg/mL 200-900 Nov 25, 2023 09:49 AM [facility] BASIC METABOLIC PANEL (non-fasting) Spe cimen Type: SERUM No comment entered. Ordering Provider: MARGARITA DIAMOND Report Released Date/Time: Sep 15, 2023 12:57 PM Reporting Lab: [facility] [address] [facility] [address] Performing Lab: [facility] [address] [facility] [address] UREA NITROGEN 29 mg/dL H 7-25 GLUCOSE [...] and tobacco- related health factors from the [place] facility where the Encounter took place. Current Smoking Status This section includes the most current smoking, or tobacco-related health factor, from the [place] facility where the Encounter took place. Date/Time Current Smoking Status Comment Jesus fall Apr 15, 2022 01:00 PM VA-TOBACCO NEVER USED [facility] Encounter Notes: All associated encounter notes This section contains the clinical notes associated to the Encounter. Date/Time Encounter Note(s) Provider Source November 04, 2023 05:28 PM PHARMACY NOTE: LOCAL TITLE: V1 PHARMACY CUSTOMER CARE MEDICATION RENEWAL STANDARD TITLE: PHARMACY NOTE DATE OF NOTE: NOVEMBER 04, 2023@17:28 ENTRY DATE: NOVEMBER 04, 2023@17:29 AUTHOR: RYDER RODRIGUEZ EXP COSIGNER: URGENCY: STATUS: COMPLETED Date: October Division: [facility] referred by Pharmacy Call Center for medication renewal: Non-controlled/maintenan ce medication Medications requested: [id number]$ GABAPENTIN 300MG CAP [place] has 1 day of medication remaining, please alert outpatient pharmacy when order is placed so it can be expedited Defer to primary care provider To be mailed . Please review and renew if appropriate. *This note was generated by [facility] Pharmacy Customer Care. If you have any questions or need assistance, do not contact this author. Please refer all questions to your local, on-site pharmacy departments. /radhames/ RYDER RODRIGUEZ [facility] Rn [place], [place]/Pharmacy Customer Care Signed: 11/04/2023 17:30 Receipt Acknowledged By: 11/05/2023 11:14 /es/ LENNOX PEARCE RN REGISTERED NURSE 11/06/2023 14:58 /es/ MARGARITA FLOREZ MD PHYSICIAN RYDER RODRIGUEZ [place] [facility]
--- OUTSIDE RECORDS SUMMARY | 2024-06-01 14:08 | XMS_ITS | Encounter Summary ---
Author Name [place] Organization [place] Address [address] [place] [address] Care Team Providers Care Pump Oiler Name Role Phone MARGARITA FLOREZ Primary Care [...] Policy Bejarano [place] [facility] Dec 13, 2013 [id number] DAGMAR,ZIA ERT PATIENT [place] MED[place]ARE SUPPLEMEN [facility] November 06, 2007 [id number] DAGMAR,ZIA ERT PATIENT [place] MED[place] SUPPLEMEN [facility] 2 November 06, 2007 [id number] DAGMAR,ZIA ERT PAT[place] [facility] 2 November 06, 2007 [id number] [phone] DAGMAR,ZIA ERT PATIENT BCBS OF [facility] MEDICARE SUPPLEMEN [facility] Dec 13, 2013 [id number] DAGMAR,ZIA ERT PATIENT BCBS OF [facility] MEDICARE SUPPLEMEN [facility]/ WHITM AN/MX Dec 13, 2008 [id number] DAGMAR,ZIA ERT PATIENT MEDICARE (WNR) MEDICARE () PART B May 15, 2012 PART B [id number] [phone] DAGMAR,ZIA ERT PATIENT MEDICARE (WNR) MEDICARE () PART A May 15, 2002 PART A [id number] DAGMAR,ZIA ERT PATIENT MEDICARE (WNR) MEDICARE () PART A May 15, 2002 PART A [id number] DAGMAR,ZIA ERT PATIENT MEDICARE (WNR) MEDICARE () PART B May 15, 2002 PART B [id number] [phone] DAGMAR,ZIA ERT PATIENT MEDICARE (WNR) MEDICARE () PART A May 15, 2002 PART A [id number] DAGMAR,ZIA ERT PATIENT MEDICARE (WNR) MEDICARE () PART B May 15, 2002 PART B [id number] DAGMAR,ZIA ERT PATIENT MEDICARE (WNR) MEDICARE () PART A May 15, 2002 PART A [id number] DAGMAR,ZIA ERT PATIENT MEDICARE (WNR) MEDICARE () PART B May 15, 2002 PART B [id number] [phone] DAGMAR,ZIA ERT PATIENT Selected Encounter This section includes the information on record at PA for the Encounter. Date/Time Encounter Type Encounter Description Reason Provider Source October 16, 2023 01:00 PM Outpatient Encounter AUDIOLOGY ICD-10-CM Z02.89 Encounter for other administrative examinations DOROTA SHEEHAN [facility] Encounter Template Text not used by PA Assessments - Encounter Diagnoses This section includes the primary and secondary diagnoses documented for the Encounter. Date/Time Primary/Secondary Diagnosis Diagnosis Name Provider Source October 16, 2023 02:09 PM PRIMARY Encounter for other administrative examinations DOROTA SHEEHAN [place] [facility] [place] [facility] October 16, 2023 02:09 PM SECONDARY Sensorineural hearing loss, bilateral IVONCZEK,DOROTA Azar [place] [facility] [place] [facility] October 16, 2023 02:09 PM SECONDARY Tinnitus, bilateral IVONCZEK,DOROTA Azar [place] [facility] [place] [facility] Plan of Treatment: Future Appointments (+ 6 months) and Future Tests (+/- 45 days) The Plan of Treatment section includes future care activities for the patient from all [facility]. This section includes future appointments and future [...] 15, 2023 02:30 PM AMBULATORY - MEDICINE [facility] Dec 30, 2023 03:00 PM AMBULAT[facility] - [facility] Mar 02, 2024 03:00 PM AMBULATORY - MEDICINE [facility] Lab Results: +/- 30 [...] Range Comment Sep 23, 2023 01:35 PM [facility] COVID-19 FLU/RSV DIAGNOSTIC PANEL Speci men Type: NASOPHARYNX Comment: This test is authorized for emergency use only. False negative results may occur if virus is present at levels below the analytical limit of detection.Nega tive results do not preclude SARS-CoV-2, influenza or RSV infection and should not be used as the sole basis for treatment or other patient management decisions.[facility] mone FLUVID: HCPs: https://www.fd a.gov/media/ 2276/download. Patients: https://www.[employer] a.gov/media/ 6439/download Ordering Provider: CHATO ADHIKARI Report Released Date/Time: Sep 23, 2023 01:14 PM Reporting Lab: [facility] [address] [facility] [address] Performing Lab: [facility] [address] [facility] [address] COVID-19 PCR (FLUVID) NEGATIVE NEGATIVE FLU A [...] 15, 2022 01:00 PM VA-TOBACCO NEVER USED [facility] Radiology Reports: +/- 30 days of [...] the Encounter. The data comes from all PA treatment facilities. Date/Time Radiology Report Provider Source Sep 24, 2023 03:11 PM CHEST (2 VIEWS): ORLY LEAVITT [id number] -[id number] M Ex Date: SEP 24, 2023@15:11 Req Phys: CHATO ADHIKARI Pat Loc: CWM/SO/SICK CALL DIGITAL INTERN (Req'g Loc Img Loc: [facility]/BUILDING 1 Service: Unknown (Case [id number] COMPLETE) CHEST (2 VIEWS) (RAD Detailed) CPT:29080 Reason for Study: wheezing, cough, SOB Clinical History: Covering resident, fellow, DIGITAL INTERN or attending: Chato Adhikari NP [place] Pager: [phone] Backup pager: History: Report Status: Verified Date Reported: SEP 24, 2023 Date Verified: SEP 24, 2023 Traffic Control Supervisor E-Sig:/ES/LATRICE DUNBAR JR Report: Study: PA [...] Primary Interpreting Staff: LATRICE DUNBAR JR, Radiologist (Traffic Control Supervisor) /LATRICE BAGLEY JR [facility] Encounter Notes: All associated encounter notes [...] and Tinnitus Disability Benefits Questionnaire Name of patient/[place]: DAGMAR ORLY CATHY Is this DBQ being completed in conjunction with a PA [id number], C&P Examination Request? [X] Yes [ ] [...] in conjunction with an interview with the [place] (without in-person or telehealth examination) using the BRIDGET process because the existing medical evidence supplemented with an interview provided sufficient information on which to prepare the questionnaire and such an examination would likely provide no additional relevant evidence. Evidence Review Evidence reviewed (check all that apply): [X] VA electronic health record [X] PA e-folder This exam is for: Hearing loss and/or tinnitus (insole lip turner, performing current exam) SECTION 1: HEARING LOSS (HL) --- 1. Objective Findings a. Puretone thresholds in decibels (air conduction): RIGHT EAR + + A B C D E F G ========+========+======= =+========+========+====== ==+========+========+ 500 1000 2000 3000 4000 6000 8000 Avg Hz Hz* Hz Hz Hz Hz Hz Hz (B-E) ========+========+======= =+========+========+====== ==+========+======== 50 45 45 55 55 65 80 [id number] + + LEFT EAR + + A B C D E F G ========+========+======= =+========+========+====== ==+========+========+ 500 1000 2000 3000 4000 6000 8000 Avg Hz Hz* Hz Hz Hz Hz Hz Hz (B-E) ========+========+======= =+========+========+====== ==+========+======== 40 50 50 55 50 75 80 [id number] + + * The puretone threshold at [...] for rating purposes. d. Speech Discrimination Score ([place] CNC word list): + + RIGHT EAR 86% +========= LEFT EAR 86% + + e. Appropriateness of Use of Word Recognition Score ([place] CNC word list): Right Ear: Is Word Discrimination Score available? Yes Word Discrimination Score appropriateness: Use of speech recognition score is appropriate for this . Left Ear: Is Word Discrimination Score available? Yes Word Discrimination Score appropriateness: Use of word recognition score is appropriate for this [place]. f. Audiologic Findings Summary of Immittance (Tympanometry) [...] hearing thresholds in service NOTES: * The [place] may have hearing loss at a level [...] above 4000 Hz, check this box. The [place] may have a significant change in hearing [...] Yes If yes, describe impact in the [place]'s own words: [place] reports, My yells at me all the [...] pertaining to tinnitus:: No response provided NOTE: PA may request additional medical information, including additional examinations if necessary to complete VA's review of the [place]'s application. /radhames/ Joni Buckner CCC-A Cattle Dipper Signed: 10/16/2023 14:08 10/16/2023 ADDENDUM STATUS: COMPLETED This is an increase exam. /radhames/ Joni Buckner CCC-A Cattle Dipper Signed: 10/16/2023 14:09 JAJA SHEEHAN [place] [facility]
--- OUTSIDE RECORDS SUMMARY | 2024-06-01 14:08 | XMS_ITS | Encounter Summary ---
Author Name [place] Address [address] [place] [address] Care Team Providers Care Management Consultant Name Role Phone MARGARITA FLOREZ Primary [...] Relationship to Policy Bejarano ALVA [place] MEDICARE SUPPLEMEN [facility] Dec 13, 2013 [id number] DAGMAR,ZIA ERT PATIENT [place] MED[place] SUPPLEMEN [facility] November 06, 2007 [id number] [phone] DAGMAR,ZIA ERT PATIENT [place] SUPP[place] 2 November 06, 2007 [id number] [phone] DAGMAR,ZIA ERT PATIENT [place] [facility] 2 November 06, 2007 [id number] [phone] DAGMAR,ZIA ERT PATIENT BCBS OF [facility] MEDICARE SUPPLEMEN [facility] Dec 13, 2013 [id number] DAGMAR,ZIA ERT PATIENT [facility] MEDICARE ROSALBA RAUSCH [facility] AN/MX Dec 13, 2008 [id number] DAGMAR,ZIA ERT PATIENT MEDICARE (WNR) MEDICARE () PART B May 15, 2012 PART B [id number] DAGMAR,ZIA ERT PATIENT MEDICARE (WNR) MEDICARE (M) PART A May 15, 2002 PART A [id number] [phone] DAGMAR,ZIA ERT PATIENT MEDICARE (WNR) MEDICARE (M) PART A May 15, 2002 PART A [id number] [phone] DAGMAR,ZIA ERT PATIENT MEDICARE (WNR) MEDICARE () PART B May 15, 2002 PART B [id number] [phone] DAGMAR,ZIA ERT PATIENT MEDICARE (WNR) MEDICARE (M) PART A May 15, 2002 PART A [id number] DAGMAR,ZIA ERT PATIENT MEDICARE (WNR) MEDICARE (M) PART B May 15, 2002 PART B [id number] DAGMAR,ZIA ERT PATIENT MEDICARE (WNR) MEDICARE (M) PART A May 15, 2002 PART A [id number] DAGMAR,ZIA ERT PATIENT MEDICARE (WNR) MEDICARE (M) PART B May 15, 2002 PART B [id number] DAGMAR,ZIA ERT PATIENT Selected Encounter This [...] 15, 2023 02:30 PM AMBULATORY - MEDICINE [facility] Dec 30, 2023 03:00 PM AMBULATORY - MEDICINE [place] [facility] Mar 02, 2024 03:00 PM AMBULATORY - MEDICINE [facility] Apr 27, 2024 10:00 AM [facility] Lab Results: +/- 30 days [...] Range Comment Nov 25, 2023 09:49 AM [facility] PSA Specimen Type: SERUM No comment entered. Ordering Provider: MARGARITA DIAMOND Report Released Date/Time: Sep 15, 2023 01:00 PM Reporting Lab: [address] [address] Performing Lab: [address] [address] PSA 1.00 ng/mL 0.00-4.00 Nov 25, 2023 09:49 AM [facility] VITAMIN D (25-OH) Specimen Type: SERUM No comment entered. Ordering Provider: MARGARITA DIAMOND Report Released Date/Time: Sep 15, 2023 12:57 PM Reporting Lab: [facility] [address] [facility] [facility] [address] Performing Lab: [address] [address] VITAMIN D (25-OH) 28 ng/mL 20-50 Nov 25, 2023 09:49 AM [facility] HEMOGLOBIN A1C PANEL Specimen Type: BLOOD Comment: [...] Sep 15, 2023 12:57 PM Reporting [facility]: [facility] [address] [address] Performing Lab: [facility] [address] HEMOGLOBIN A1C 6.7 H 4.0-5.6 Nov 25, 2023 09:49 AM [facility] FERRITIN Specimen Type: SERUM No comment entered. Ordering Provider: MARGARITA DIAMOND Report Released Date/Time: Sep 15, 2023 12:57 PM Reporting Lab: [address] [address] Performing Lab: [address] [address] FERRITIN 38 ng/mL 20-300 Nov 25, 2023 09:49 AM [facility] LIPID PANEL, NON FASTING Specimen Type: SERUM No comment entered. Ordering Provider: MARGARITA DIAMOND Report Released Date/Time: Sep 15, 2023 12:57 PM Reporting Lab: [address] [address] Performing [facility]: [facility] [address] [address] CHOLESTEROL 120 mg/dL TRIGLYCERIDE 191 mg/dL H 0-150 LDL calculated 46 mg/dL 0-129 CHOL/HDL 3.3 HDL CHOLESTEROL 36 mg/dL L 40-60 Nov 25, 2023 09:49 AM [facility] LIVER FUNCTION Specimen Type: SERUM No comment entered. Ordering Provider: MARGARITA DIAMOND Report Released Date/Time: Sep 15, 2023 12:57 PM Reporting Lab: [address] [address] Performing Lab: [facility] [address] [address] PROTEIN,TOTAL 6.8 g/dL 6.0-8.3 ALBUMIN 3.6 g/dL 3.5-5.0 ALKALINE PHOSPHATASE 38 U/L L 40-150 AST 21 U/L 5-34 ALT 21 U/L BILIRUBIN, TOTAL 0.4 mg/dL 0.2-1.2 Nov 25, 2023 09:49 AM [facility] MAGNESIUM Specimen Type: SERUM No comment entered. Ordering Provider: MARGARITA DIAMOND Report Released Date/Time: Sep 15, 2023 12:57 PM Reporting Lab: [address] [address] Performing Lab: [address] [address] MAGNESIUM 1.6 mg/dL 1.6-2.6 Nov 25, 2023 09:49 AM [facility] IRON & TIBC PANEL Specimen Type: SERUM No comment entered. Ordering Provider: MARGARITA DIAMOND Report Released Date/Time: Sep 15, 2023 12:57 PM Reporting Lab: [address] [address] Performing Lab: [address] [address] TIBC 430 ug/dL 204-475 IRON 78 ug/dL 40-160 Transferrin Saturation 18.1 L 20.0-50.0 Nov 25, 2023 09:49 AM [facility] MICROALBUMIN CREATININE RATIO PANEL Spe cimen Type: URINE No comment entered. Ordering Provider: MARGARITA DIAMOND Report Released Date/Time: Sep 15, 2023 12:57 PM Reporting Lab: [address] [address] Performing Lab: [address] [address] MICROALBUMIN/C REATININE RATIO canc mg/g 0-29.9 MICROALBUMIN,Q UANTITATIVE < 0.5 mg/dL RR UNAVAIL CREATININE URINE 57.10 mg/dL Nov 25, 2023 09:49 AM [facility] VITAMIN B12 Specimen Type: SERUM No comment entered. Ordering Provider: MARGARITA DIAMOND Report Released Date/Time: Sep 15, 2023 12:57 PM Reporting Lab: [address] [address] Performing Lab: [address] [address] VITAMIN B12 884 pg/mL 200-900 Nov 25, 2023 09:49 AM [facility] CBC AND DIFF (AUTO) Specimen Type: BLOOD No comment entered. Ordering Provider: MARGARITA DIAMOND Report Released Date/Time: Sep 15, 2023 12:57 PM Reporting Lab: [address] [address] Performing Lab: [address] [address] WBC 7.72 10*3/uL 4.50-11.00 RBC 4.35 10*6/uL 4.23-5.66 HGB 12.7 g/dL L 12.8-17 HCT 39.1 L 39.2-50.4 MCV 89.9 fL 82-99 MCHC 32.5 g/dL 30.8-35.1 PLT 187 10*3/uL 140-360 RDW-CV 14.2 12.0-16.0 [place], Abs 0.63 10*3/uL 0.30-1.10 MCH 29.2 pg 26.2-32.6 Neut % 62.7 43.7-75.8 LYMPH % 24.5 14.0-42.3 [place] % 8.2 5.1-13.7 Eos % 3.5 0.4-6.8 Baso % 0.6 0.1-2.0 Neut, Abs 4.84 10*3/uL 2.20-7.60 Lymph, Abs 1.89 10*3/uL 1.00-3.20 Eos, Abs 0.27 10*3/uL 0.03-0.44 Baso, Abs 0.05 10*3/uL 0.01-0.13 Immature Gran % 0.5 0.0-0.7 Immature Gran, Abs 0.04 10*3/uL 0.00-0.06 Nov 25, 2023 09:49 AM [facility] BASIC METABOLIC PANEL (non-fasting) Spe cimen Type: SERUM No comment entered. Ordering Provider: MARGARITA DIAMOND Report Released Date/Time: Sep 15, 2023 12:57 PM Reporting Lab: [facility] [address] [facility] [facility] [address] Performing Lab: [facility] [address] [facility] [address] UREA NITROGEN 29 mg/dL H 7-25 GLUCOSE [...] 15, 2022 01:00 PM VA-TOBACCO NEVER USED [facility] Encounter Notes: All associated encounter notes This [...] tablets no refills [facility], Please call daughter Mindi dalton submitted @ [phone]. Thank you /radhames/ MARGARITA FLOREZ MD PHYSICIAN Signed: 11/06/2023 15:00 Receipt Acknowledged By: 11/10/2023 08:36 /radhames/ LENNOX PEARCE RN REGISTERED NURSE 11/06/2023 15:25 /es/ HOOD MIKE LPN LPN === --- Original Document --- 11/04/23 CCC: SCHEDULING ADMINISTRATION: Patient Demographics Patient Name: ORLY LEAVITT Patient Primary Phone: [phone] Patient Primary Address: [address] [place] [address] Patient : 1935 Patient Age: 88 Call Back Number: [phone] Caller/Recipient Relation to Patient: Other If Other Describe Relation to Patient: Daughter Caller Name: Mindi Administrative Administrative Note Reason: Medication Renewal [place] Medications Refill/Renewal Request: Veterans Daughter Mindi is calling, the Pharm [facility] Care is putting in a refill request on the veterans GABAPENTIN 300MG CAP, however he only has 3 doses left and will need some before the script arrives. Mindi would like a SHORT SCRIPT sent to [facility] in [facility], provided by Mindi. Please call Mindi once submitted @ [phone] /es/ LITZY WILDER 1 [facility] Signed: 11/04/2023 15:15 Receipt Acknowledged By: 11/06/2023 14:07 /radhames/ LENNOX PEARCE RN REGISTERED NURSE 11/06/2023 14:58 /radhames/ MARGARITA FLOREZ MD PHYSICIAN 11/06/2023 ADDENDUM STATUS: COMPLETED MEDICATION CALLED IN TO [facility] [phone] CALL PLACED TO MINDI, AND SHE IS AWARE MEDICATION WAS CALLED IN. /radhames/ HOOD MIKE LPN LPN Signed: 11/06/2023 15:26 Melisa FLOREZ [place] [facility] [place] [facility] November 04, 2023 03:14 PM ADMINISTRATIVE NOTE: LOCAL TITLE: CCC: SCHEDULING ADMINISTRATION STANDARD TITLE: ADMINISTRATIVE NOTE DATE OF NOTE: NOVEMBER 04, 2023@15:14:53 ENTRY DATE: NOVEMBER 04, 2023@15:14:53 AUTHOR: LITZY LOWE COSIGNER: URGENCY: STATUS: COMPLETED CCC: SCHEDULING ADMINISTRATION Has ADDENDA Patient Demographics Patient Name: ORLY LEAVITT Patient Primary Phone: [phone] Patient Primary Address: [address] [place] [id number] Patient : 1935 Patient Age: 88 Call Back Number: [phone] Caller/Recipient Relation to Patient: Other If Other Describe Relation to Patient: Daughter Caller Name: Mindi Administrative Administrative Note Reason: Medication Renewal [place] Medic[place] Refill/Renewal Request: Veterans Daughter Mindi is calling, the Pharm [facility] Care is putting in a refill request on the veterans GABAPENTIN 300MG CAP, however he only has 3 doses left and will need some before the script arrives. Mindi would like a SHORT SCRIPT sent to [facility] in [facility], provided by Mindi. Please call Mindi once submitted @ [phone] /es/ LITZY WILDER 1 [facility] Signed: 11/04/2023 15:15 Receipt Acknowledged By: 11/06/2023 14:07 /es/ LENNOX PEARCE RN REGISTERED NURSE 11/06/2023 14:58 /es/ MARGARITA FLOREZ MD PHYSICIAN 11/06/2023 ADDENDUM STATUS: COMPLETED Please call in non-VA pharmacy gabapentin 300 mg at bedtime, #15 tablets no refills [facility], Please call evon Singletary once submitted @ [phone]. Thank you /radhames/ MARGARITA FLOREZ MD PHYSICIAN Signed: 11/06/2023 15:00 Receipt Acknowledged By: * AWAITING SIGNATURE * LENNOX PEARCE 11/06/2023 15:25 /es/ HOOD MIKE LPN LPN 11/06/2023 ADDENDUM STATUS: COMPLETED MEDICATION CALLED IN TO [facility] [phone] CALL PL[address]ED TO MINDI, AND SHE IS AWARE MEDICATION WAS CALLED IN. /radhames/ HOOD MIKE LPN LPN Signed: 11/06/2023 15:26 LITZY LOWE [facility]
--- OUTSIDE RECORDS SUMMARY | 2024-06-01 14:09 | XMS_ITS | Encounter Summary ---
Author Name [facility] [place] [facility] [place] Organization [facility] [place] [facility] [place] Address [address] [place] [address] Care Team Providers Care Director Customer Name Role Phone MARGARITA FLOREZ Primary Care [...] Policy Bejarano ALVA BCBS OF [place] [facility]IC[facility] Dec 13, 2013 [id number] [phone] DAGMAR,ZIA ERT PATIENT [place] MED[place] SUPPLEMEN [facility] November 06, 2007 [id number] DAGMAR,ZIA ERT PATIENT [place] MED[place] SUPPLEMEN [facility] 2 November 06, 2007 [id number] [phone] DAGMAR,ZIA ERT PATIENT [place] SU[place] [facility] 2 November 06, 2007 [id number] DAGMAR,ZIA ERT PATIENT BCBS OF [facility] MEDICARE SUPPLEMEN [facility] Dec 13, 2013 [id number] DAGMAR,ZIA ERT PATIENT [place] SUPPLEMEN [facility]/ WHITM AN/MX Dec 13, 2008 [id number] [phone] DAGMAR,ZIA ERT PATIENT MEDICARE (WNR) MEDICARE () PART B May 15, 2012 PART B [id number] [phone] DAGMAR,ZIA ERT PATIENT MEDICARE (WNR) MEDICARE () PART A May 15, 2002 PART A [id number] DAGMAR,ZIA ERT PATIENT MEDICARE (WNR) MEDICARE () PART B May 15, 2002 PART B [id number] DAGMAR,ZIA ERT PATIENT MEDICARE (WNR) MEDICARE () PART A May 15, 2002 PART A [id number] DAGMAR,ZIA ERT PATIENT MEDICARE (WNR) MEDICARE () PART A May 15, 2002 PART A [id number] DAGMAR,ZIA ERT PATIENT MEDICARE (WNR) MEDICARE () PART B May 15, 2002 PART B [id number] [id number] [phone] DAGMAR,ZIA ERT PATIENT MEDICARE (WNR) MEDICARE () PART A May 15, 2002 PART A [id number] DAGMAR,ZIA ERT PATIENT MEDICARE (WNR) MEDICARE () PART B May 15, 2002 PART B [id number] DAGMAR,ZIA ERT PATIENT Selected Encounter This section includes the information on record at OR for the Encounter. Date/Time Encounter Type Encounter Description Reason Provider Source Mar 02, 2024 03:00 PM OFFICE O/P EST LOW 20 MIN PODIATRY ICD-10-CM L60.0 Ingrowing WILLY Delacruz [facility] Encounter Template Text not used by [facility] Assessments - Encounter Diagnoses This section includes the primary and secondary diagnoses documented for the Encounter. Date/Time Primary/Secondary Diagnosis Diagnosis Name Provider Source Mar 24, 2024 02:08 PM PRIMARY Ingrowing WILLY Delacruz [place] Mar 24, 2024 02:08 PM SECONDARY Pain in left toe(s) WILLY GARCÍA [facility] Mar 24, 2024 02:08 PM SECONDARY Pain in right toe(s) WILLY GARCÍA [place] Mar 24, 2024 02:08 PM SECONDARY Type 2 diabetes w diabetic peripheral angiopath w/o gangrene WILLY GARCÍA Plan of Treatment: Future Appointments (+ 6 months) and Future Tests (+/- 45 days) The Plan of Treatment section includes future care activities for the patient from all [place] treatmentfacilities. This section includes future appointments and future orders which are active, pending or scheduled. Future Appointments This section includes appointments that were scheduled to occur 6 months from the date of the Encounter, up to a maximum of 20 appointments. The data comes from all [place] treatment facilities. Appointment Date/Time Appointment Type Appointme nt Facility Name Apr 27, 2024 10:00 AM AMBULATORY - MEDICINE [facility] Jul 12, 2024 03:30 PM AMBULATORY - MEDICINE [facility] Jul 20, 2024 03:00 PM AMBULATORY - MEDICINE [facility] Aug 03, 2024 03:00 PM AMBULATORY - MEDICINE [facility] Social History: Smoking Status (Most current) and Tobacco Use (All prior to encounter date) This section includes the most current, and the historical, smoking and tobacco- related health factors from the OR facility where the Encounter took place. Current Smoking Status This section includes the most current smoking, or tobacco-related health factor, from the OR facility where the Encounter took place. Date/Time Current Smoking Status Comment Jesus fall Apr 28, 2023 03:00 PM [facility] NEVER US[facility] [place] Tobacco Use History This section includes a history of the smoking, or tobacco-related health factors, that were collected on or before the date of the Encounter. The data comes from the [place] facility where the Encounter took place. Date/Time Smoking Status/Tobacco Use Comment F acmelissa Apr 09, 2021 10:00 AM [place]-TOBACCO NEVER USED [place] Mar 13, 2020 12:30 PM VA-TOBACCO NEVER USED [place] Feb 02, 2018 02:02 PM OR-TOBACCO NEVER USED [place] Mar 10, 2017 01:57 PM LIFETIME NON-TOBACCO USER [place] Feb 11, 2016 02:44 PM LIFETIME NON-TOBACCO USER [place] May 09, 2009 09:43 AM LIFETIME NON-TOBACCO USER [place] Encounter Notes: All associated encounter notes This section contains the clinical notes associated to the Encounter. Date/Time Encounter Note(s) Provider Source Mar 02, 2024 01:51 PM PODIATRY NOTE: LOCAL TITLE: PODIATRY NOTE STANDARD TITLE: PODIATRY NOTE DATE OF NOTE: MAR 02, 2024@13:51 ENTRY DATE: MAR 02, 2024@13:51:14 AUTHOR: WILLY GARCÍA EXP COSIGNER: URGENCY: STATUS: COMPLETED NOTE: HAS RECEIVED BOTH COVID VACCINE DOSES AT [facility] LAST SEEN FOR TREATMENT: 09/30/2023 S: Pt. [...] *NOTE: A1c = 6.7 (LAST TAKEN: 11/2023) SGU=[id number] week on prednisone RISK VALUE =2 HEIGHT: [...] present physical-medical status. Protective sensation utilizing a [place] lOg monofilament is 10/10 bilateral. ABOVE exams [...] Remote Allergy/ADR Data available for this patient [place] [facility] [place] [facility] COLCHICINE/PROBENECID Med Recon NoGlossary (Tool [...] the patient into personal health records (i.e. [facility]) are NOT included in this list. Non-VA medications documented outside this OR, remote inpatient orders (regardless of status) and remote clinic medications are NOT included in this list. The patient and provider must always discuss medications the patient is taking, regardless of where the medication was dispensed or obtained. OUTPT ALLOPURINOL 100MG TAB (Status = Discontinued) TAKE ONE TABLET BY MOUTH TWICE DAILY FOR GOUT Rx# [id number] Last Released: 11/26/23 Qty/Days Supply: Rx Expiration Date: 05/17/24 Refills Remainin OUTPT ALLOPURINOL 100MG TAB (Status = Active/Suspended) TAKE ONE TABLET BY MOUTH TWICE DAILY FOR GOUT Rx# [id number] Last Released: 02/26/24 Qty/Days Supply: Rx Expiration Date: 12/15/24 Refills Remainin OUTPT AMLODIPINE BESYLATE 5MG TAB (Status = Discontinued) TAKE ONE TABLET BY MOUTH ONCE DAILY FOR BLOOD PRESSURE/HEART, DO NOT TAKE WITH GRAPEFRUIT JUICE Rx# [id number] Last Released: 10/01/23 Qty/Days Supply: 90 Rx Expiration Date: 05/17/24 Refills Remainin OUTPT AMLODIPINE BESYLATE 5MG TAB (Status = Active) TAKE ONE TABLET BY MOUTH ONCE DAILY FOR BLOOD PRESSURE/HEART, DO NOT TAKE WITH GRAPEFRUIT JUICE Rx# [id number] Last Released: 12/28/23 Qty/Days Supply: 90 Rx [...] ONCE DAILY TO PREVENT BLOOD CLOTS Rx# [id number] Last Released: 09/24/23 Qty/Days Supply: Rx Expiration Date: 05/17/24 Refills Remainin Indication: TO PREVENT BLOOD CLOTS OUTPT CLOPIDOGREL BISULFATE 75MG TAB (Status = Active/Suspended) TAKE ONE TABLET BY MOUTH ONCE DAILY TO PREVENT BLOOD CLOTS Rx# [id number] Last Released: 12/28/23 Qty/Days Supply: Rx Expiration Date: 12/15/24 Refills Remainin Indication: TO PREVENT BLOOD CLOTS Non-VA CYANOCOBALAMIN 250MCG TAB TAKE ONE TABLET BY MOUTH ONCE DAILY Patient wants to buy from Non-OR pharmacy. OUTPT FENOFIBRATE 145MG TAB (Status = Active) TAKE ONE TABLET BY MOUTH AT BEDTIME TO LOWER CHOLESTEROL Rx# [id number] Last Released: 02/01/24 Qty/Days Supply: Rx Expiration Date: 05/28/24 Refills Remainin Non-VA FERROUS GLUCONATE 324MG TAB TAKE ONE TABLET BY MOUTH EVERY 48 HOURS Patient wants to buy from Non-OR pharmacy. Medication prescribed by Non-VA provider. Indication: TO SUPPLEMENT IRON Non-VA FISH OIL 1000MG (500MG DHA/EPA) CAP TAKE 1 CAPSULE BY MOUTH DAILY Non-VA medication not recommended by VA provider. OUTPT FUROSEMIDE 20MG TAB (Status = Active) TAKE ONE TABLET BY MOUTH ONCE DAILY TO REMOVE FLUID/CONTROL BLOOD PRESSURE Rx# [id number] Last Released: 11/25/23 Qty/Days Supply: Rx Expiration Date: 09/15/24 Refills Remainin Indication: FOR EDEMA WITH DEFECTIVE KIDNEY FUNCTION OUTPT GABAPENTIN 300MG CAP (Status = Active) TAKE ONE CAPSULE BY MOUTH AT BEDTIME Rx# [id number] Last Released: 01/15/24 Qty/Days Supply: Rx Expiration [...] AND INJECT 20 UNITS EVERY EVENING Rx# [id number] Last Released: 11/30/23 Qty/Days Supply: Rx Expiration Date: 06/10/24 Refills Remainin Indication: FOR DIABETES OUTPT MAGNESIUM OXIDE 420MG TAB (Status = Discontinued) TAKE ONE TABLET BY MOUTH TWICE DAILY FOR MAGNESIUM SUPPLEMENTATION Rx# [id number] Last Released: 07/30/23 Qty/Days Supply: 180/90 Rx Expiration Date: 04/23/24 Refills Remainin Indication: FOR MAGNESIUM SUPPLEMENTATION OUTPT MAGNESIUM OXIDE 420MG TAB (Status = Active) TAKE ONE TABLET BY MOUTH TWICE DAILY FOR MAGNESIUM SUPPLEMENTATION Rx# [id number] Last Released: 12/18/23 Qty/Days Supply: 180 Rx Expiration Date: 12/15/24 Refills Remainin Indication: FOR MAGNESIUM SUPPLEMENTATION OUTPT METFORMIN HCL 500MG 24HR SA TAB (Status = Discontinued) TAKE TWO TABLETS BY MOUTH ONCE DAILY Rx# [id number] Last Released: 09/18/23 Qty/Days Supply: 180 Rx Expiration Date: 05/17/24 Refills Remainin OUTPT METFORMIN HCL 500MG 24HR SA TAB (Status = Active) TAKE TWO TABLETS BY MOUTH ONCE DAILY Rx# [id number] Last Released: 02/01/24 Qty/Days Supply: 60/30 Rx Expiration Date: 12/15/24 Refills Remainin OUTPT METOPROLOL SUCCINATE 100MG SA TAB (Status = Active) TAKE ONE TABLET BY MOUTH ONCE DAILY FOR BLOOD PRESSURE/HEART Rx# [id number] Last Released: 02/01/24 Qty/Days Supply: 90/ Rx Expiration Date: 05/17/24 Refills Remainin OUTPT NIACIN (SLO-NIACIN) 750MG TAB,SA (Status = On Hold) TAKE ONE TABLET BY MOUTH TWICE DAILY Rx# [id number] Last Released: Qty/Days Supply: 200/90 Rx Expiration Date: 05/21/24 Refills Remainin OUTPT OMEPRAZOLE 20MG EC CAP (Status = Discontinued) TAKE ONE CAPSULE BY MOUTH TWICE DAILY Rx# [id number] Last Released: 06/02/23 Qty/Days Supply: 180/90 Rx Expiration Date: 05/17/24 Refills Remainin OUTPT OMEPRAZOLE 20MG EC CAP (Status = Active) TAKE ONE CAPSULE BY MOUTH TWICE DAILY Rx# [id number] Last Released: 12/18/23 Qty/Days Supply: 180/90 Rx Expiration Date: 12/15/24 Refills Remainin OUTPT SEMAGLUTIDE 1MG/0.75ML INJ PEN 3ML (Status = Active) INJECT 1MG SUBCUTANEOUSLY ONCE A WEEK FOR TYPE 2 DIABETES MELLITUS Rx# [id number] Last Released: 03/02/24 Qty/Days Supply: 07/12 Rx Expiration Date: 11/05/24 Refills Remainin Indication: FOR TYPE 2 DIABETES MELLITUS OUTPT SIMVASTATIN 80MG TAB (Status = Discontinued) TAKE ONE-HALF TABLET BY MOUTH ONCE DAILY FOR CHOLESTEROL Rx# [id number] Last Released: 10/26/23 Qty/Days Supply: Rx Expiration Date: 05/17/24 Refills Remainin OUTPT SIMVASTATIN 80MG TAB (Status = Active/Suspended) TAKE ONE-HALF TABLET BY MOUTH ONCE DAILY FOR CHOLESTEROL Rx# [id number] Last Released: 01/27/24 Qty/Days Supply: Rx Expiration Date: 12/15/24 Refills Remainin SUPPLIES OUTPT ACCU-CHEK GUIDE (GLUCOSE) TEST STRIP (Status = Active) USE 1 STRIP TO TEST BLOOD SUGARS TWICE DAILY Rx# [id number] Last Released: 05/05/23 Qty/Days Supply: 50/ Rx Expiration Date: 04/28/24 Refills Remainin Indication: DIABETES OUTPT GLUCOSE SENSOR DEXCOM G7 (Status = Active) USE 1 SENSOR DIRECTED EVERY 10 DAYS Rx# [id number] Last Released: 01/15/24 Qty/Days Supply: Rx Expiration Date: 08/05/24 Refills Remainin OUTPT INSULIN SYRINGE 0.5ML 30G 12MM (Status = Active) USE 1 SYRINGE SUBCUTANEOUSLY TWICE DAILY FOR INSULIN INJECTIONS Rx# [id number] Last Released: 02/18/24 Qty/Days Supply: 200/90 Rx Expiration Date: 06/10/24 Refills Remainin OUTPT LANCET,SOFTCLIX (Status = Active) USE 1 LANCET TOPICALLY ONCE DAILY TO TEST BLOOD SUGAR Rx# [id number] Last Released: 05/05/23 Qty/Days Supply: 200/90 Rx Expiration Date: 04/28/24 Refills Remainin Indication: DIABETES OUTPT SKIN BARRIER WIPE TORBOT SKIN TAC (Status = Active) USE 1 WIPE TOPICALLY EVERY 10 DAYS Rx# [id number] Last Released: 01/07/24 Qty/Days Supply: 50/90 Rx Expiration Date: 03/24/24 Refills Remainin /radhames/ WILLY GARCÍA DPM BILLING CUSTOMER SERVICE REPRESENTATIVE Signed: 03/02/2024 15:32 WILLY GARCÍA [place]
--- OUTSIDE RECORDS SUMMARY | 2024-06-01 14:09 | XMS_ITS | Encounter Summary ---
Author Name [facility] [place] Address [address] [place] [address] Care Team Providers Care Electrical Appliance Preparer Name Role Phone MARGARITA FLOREZ Primary Care [...] Policy Bejarano ALVA BC[place] OF [place] [facility] Dec 13, 2013 [id number] DAGMAR,ZIA ERT PATIENT BCBS [place] MEDICARE SUPPLEMEN [facility] November 06, 2007 [id number] [phone] DAGMAR,ZIA ERT PATIENT [place] SUPPLEMEN [facility] 2 November 06, 2007 [id number] [phone] DAGMAR,ZIA ERT PAT[place] [facility] 2 November 06, 2007 [id number] DAGMAR,ZIA ERT PATIENT BCBS OF [facility] MEDICARE SUPPLEMEN [facility] Dec 13, 2013 [id number] [phone] DAGMAR,ZIA ERT PATIENT [place] SUPPLEMEN [facility]/ WHITM AN/MX Dec 13, 2008 [id number] [phone] DAGMAR,ZIA ERT PATIENT MEDICARE (WNR) MEDICARE () PART B May 15, 2012 PART B [id number] DAGMAR,ZIA ERT PATIENT MEDICARE (WNR) MEDICARE () PART A May 15, 2002 PART A [id number] [phone] DAGMAR,ZIA ERT PATIENT MEDICARE (WNR) MEDICARE () PART A May 15, 2002 PART A [id number] DAGMAR,ZIA ERT PATIENT MEDICARE (WNR) MEDICARE () PART B May 15, 2002 PART B [id number] [phone] DAGMAR,ZIA ERT PATIENT MEDICARE (WNR) MEDICARE () PART A May 15, 2002 PART A [id number] [phone] DAGMAR,ZIA ERT PATIENT MEDICARE (WNR) MEDICARE () PART B May 15, 2002 PART B [id number] [phone] DAGMAR,ZIA ERT PATIENT MEDICARE (WNR) MEDICARE () PART A May 15, 2002 PART A [id number] [phone] DAGMAR,ZIA ERT PATIENT MEDICARE (WNR) MEDICARE () PART B May 15, 2002 PART B [id number] DAGMAR,ZIA ERT PATIENT Selected Encounter This section includes the information on record at [place] for the Encounter. Date/Time Encounter Type Encounter Description Reason Provider Source Dec 30, 2023 03:00 PM MTMS BY PHARM ADDL 15 MIN CLINICAL PHARMACY ICD-10-CM E11.8 Type 2 diabetes mellitus with unspecified complications [facility] Encounter Template Text not used by [place] Assessments - Encounter Diagnoses This section includes [...] care activities for the patient from all [place] treatmentfacilities. This section includes future appointments and [...] 02, 2024 03:00 PM AMBULATORY - MEDICINE [facility] Apr 27, 2024 10:00 AM AM[place]ULATORY - [place]ICINE [place] [facility] [place] Social History: [...] Jesus fall Apr 28, 2023 03:00 PM [place]-TOBACCO NEVER USED [place] Tobacco Use History This section includes a history of the smoking, or tobacco-related health factors, that were collected on or before the date of the Encounter. The data comes from the [place] facility where the Encounter took place. Date/Time Smoking Status/Tobacco Use Comment F acmelissa Apr 09, 2021 10:00 AM [place]-TOBACCO NEVER USED [place] Mar 13, 2020 12:30 PM VA-TOBACCO NEVER USED [place] Feb 02, 2018 02:02 PM VA-TOBACCO NEVER USED [place] Mar 10, 2017 01:57 PM LIFETIME NON-TOBACCO USER [place] Feb 11, 2016 02:44 PM LIFETIME NON-TOBACCO USER [place] May 09, 2009 09:43 AM LIFETIME NON-TOBACCO USER [place] Encounter Notes: All associated encounter notes This [...] daughter. They had a recent visit w/ videotape sales representative and pt's labs came back much improved including his eGFR and SrCr. Pt is doing well. Dtr cooks dinner for him every day and is very close to the . Per prev: Pt presents to the visit w/ his dtr Mindi (tel# [phone]). Pt states he is doing well. He [...] per prev: Pt presents w/ his dtr Minid for a f/up and nona pro placement. Mindi brought all of the pt's medication list. Medication reconcilliation was performed. per prev: pt was diagnosed w/ T2D but suspects he has had dm for much longer. Pt's dtrs usually comes to the visit w/ pt. Pt has had 6 stents placed. Pt's director river restoration Dr. Flannery in [place]. Dr. Ríos is the bridge saw operator on the outside. Pt lives w/ his Per consult from PCP pt is interested in obtaining sensor from the [place]. Target Goals: A1C: 7%; FB-130 mg/dL; 2HRS PP <180mg/dL. Allergies: COLCHICINE/PROBENECID PERTINENT INFORMATION: Active problems - Computerized Problem List is the source for the followin. Neuropathy due to type 2 diabetes mellitus 2. Diabetic nephropathy 3. Hypomagnesemia 4. Diarrhea 5. Gutierrez's esophagus 6. Insomnia (SCT 098592648) 7. Bone density below reference range 8. Diabetes Mellitus Type 2 (SCT 86250996) 9. Obstructive Sleep Apnea of Adult (SCT 5764887097027) 10. Prostate Cancer (SCT 578614189) 11. Chronic kidney disease stage 3 12. Low Back Pain * 13. Vitamin B12 deficiency 14. 2009: Colonoscopy: Polypectomy 15. 11-08-09: PFT: Normal 16. Abdominal aortic aneurysm (SNOMED CT 311544223) 17. Benign essential hypertension (SNOMED CT 9936317) 18. Venous insufficiency of leg (SNOMED CT 805875936) 19. Other dyspnea and respiratory abnormality 20. Coronary arteriosclerosis (SNOMED CT 07959199) 21. CAD: 2005:PTCA 5 TaxusStents: LADx2 RCAx2 Prox RCA x1 22. H/O: gout 23. Hyperglycemia due to type 2 diabetes mellitus (SNOMED CT 103676064996397) 24. Gastroesophageal reflux disease 25. Hyperlipidemia (SNOMED CT 81722747) 26. 1957: 2 rt inguinal hernia repair/[place] 27. 1969: Lipoma Removal 28. Tonsillectomy and [...] (Wednesdays) - switched over to semagluitde at [place] - glipizide - stopped 04/2023 Adherence: Oral [...] is requesting to obtain it from the [place]. Per above note, pt does not wish to transition to basal/bolus regimen due to too high complexity and too many injections. Informed the pt that [place] currently only has vials of novolog mix 70/30 - as the pens are on manager relationship's backorder. Reviewed w/ pt and dtr how to use vial and syringe. Pt's dtr works in medical field is very well familiar how to perform injections using vials and syringes. Pt and dtr were able to demonstrate back to the proposal lead writer how to use it. Will order it + syringes pt to strip picker at the pharmacy window tomorrow. Reviewed [...] Will assess futher. Reviewed the upload w/ [place] and dtr. f/up end of June. adn [...] of Preventive Care: Most recent visit to manual machinist: [facility]; seen by Dr. Reyes 2 [...] monitor and assess /radhames/ TARUN GILL CLINICAL HEAD CHAR FILTER TANK TENDER Signed: 12/31/2023 11:33 Receipt Acknowledged By: 01/01/2024 12:30 /radhames/ MARGARITA FLOREZ MD PHYSICIAN T[facility]UN GILL [place]
--- OUTSIDE RECORDS SUMMARY | 2024-06-01 14:09 | XMS_ITS | Encounter Summary ---
Author Name [facility] [place] Address [address] [place] [id number] Care Team Providers Care Clinical Laboratory Director Name Role Phone MARGARITA FLOREZ Primary [...] Policy Bejarano ALVA [place] [facility] Dec 13, 2013 [id number] DAGMAR,ZIA ERT PATIENT [place]BS [place] MEDICARE SUPPLEMEN [facility] November 06, 2007 [id number] DAGMAR,ZIA ERT PATIENT [place] MED[place] SUPPLEMEN [facility] 2 November 06, 2007 [id number] DAGMAR,ZIA ERT PATIENT [place] SUPPLEMEN [facility] 2 November 06, 2007 [id number] DAGMAR,ZIA ERT PATIENT BCBS OF [facility] MEDICARE SUPPLEMEN [facility] Dec 13, 2013 [id number] DAGMAR,ZIA ERT PATIENT [place] SUPPLEMEN [facility]/ WHITM AN/MX Dec 13, 2008 [id number] DAGMAR,ZIA ERT PATIENT MEDICARE (WNR) MEDICARE () PART B May 15, 2012 PART B [id number] DAGMAR,ZIA ERT PATIENT MEDICARE (WNR) MEDICARE () PART A May 15, 2002 PART A [id number] DAGMAR,ZIA ERT PATIENT MEDICARE (WNR) MEDICARE () PART B May 15, 2002 PART B [id number] DAGMAR,ZIA ERT PATIENT MEDICARE (WNR) MEDICARE () PART A May 15, 2002 PART A [id number] DAGMAR,ZIA ERT PATIENT MEDICARE (WNR) MEDICARE () PART A May 15, 2002 PART A [id number] DAGMAR,ZIA ERT PATIENT MEDICARE (WNR) MEDICARE () PART B May 15, 2002 PART B [id number] DAGMAR,ZIA ERT PATIENT MEDICARE (WNR) MEDICARE () PART B May 15, 2002 PART B [id number] DAGMAR,ZIA ERT PATIENT MEDICARE (WNR) MEDICARE () PART A May 15, 2002 PART A [id number] DAGMAR,ZIA ERT PATIENT Selected Encounter This section includes the information on record at [place] for the Encounter. Date/Time Encounter Type Encounter Description Reason Provider Source Apr 27, 2024 10:00 AM MTMS BY PHARM SOFIL 15 MIN CLINICAL PHARMACY ICD-10-CM E11.9 Type 2 diabetes mellitus without complications TAMMY GILL [place] Encounter Template Text not used by [place] Assessments - Encounter Diagnoses This section includes the primary and secondary diagnoses documented for the Encounter. 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 This section includes future appointments and future [...] 12, 2024 03:30 PM [facility] Jul 20, 2024 03:00 PM AMBULATORY - MEDICINE [facility] Aug 03, 2024 03:00 PM AMBULATORY - MEDICINE [facility] [place] [facility] Social History: Smoking Status (Most current) and [...] 28, 2023 03:00 PM [place]-TOBACCO NEVER USED [place] Tobacco Use History This section includes a history of the smoking, or tobacco-related health factors, that were collected on or before the date of the Encounter. The data comes from the [place] facility where the Encounter took place. Date/Time Smoking Status/Tobacco Use Comment F acility Apr 09, 2021 10:00 AM VA-TOBACCO NEVER USED [place] Mar 13, 2020 12:30 PM VA-TOBACCO NEVER USED [place] Feb 02, 2018 02:02 PM VA-TOBACCO NEVER USED [place] Mar 10, 2017 01:57 PM LIFETIME NON-TOBACCO USER [place] Feb 11, 2016 02:44 PM LIFETIME NON-TOBACCO USER [place] May 09, 2009 09:43 AM LIFETIME NON-TOBACCO USER [place] Encounter Notes: All associated encounter notes This [...] daughter. They had a recent visit w/ rn transitional care and pt's labs came back much improved including his eGFR and SrCr. Pt is doing well. Dtr cooks dinner for him every day and is very close to the . Per prev: Pt presents to the visit w/ his dtr Mindi (tel# [phone]). Pt states he is doing well. He [...] Pt has had 6 stents placed. Pt's regrinder operator Dr. Flannery in [place]. Dr. Ríos is the early morning on the outside. Pt lives w/ his [...] Diarrhea 5. Gutierrez's esophagus 6. Insomnia (SCT 980451449) 7. Bone density below reference range 8. Diabetes Mellitus Type 2 ([facility] 73894101) 9. Obstructive Sleep Apnea of Adult (SCT 0706408105007) 10. Prostate Cancer ([facility] 007429306) 11. Chronic kidney disease stage 3 12. Low Back Pain * 13. Vitamin B12 deficiency 14. 2009: Colonoscopy: Polypectomy 15. 11-08-09: PFT: Normal 16. Abdominal aortic aneurysm (SNOMED CT 141954659) 17. Benign essential hypertension (SNOMED CT 9480697) 18. Venous insufficiency of leg (SNOMED CT 629949295) 19. Other dyspnea and respiratory abnormality 20. Coronary arteriosclerosis (SNOMED CT 02957109) 21. CAD: 2005:PTCA 5 TaxusStents: LADx2 RCAx2 Prox RCA x1 22. H/O: gout 23. Hyperglycemia due to type 2 diabetes mellitus (SNOMED CT 863260774642784) 24. Gastroesophageal reflux disease 25. Hyperlipidemia (SNOMED CT 33859770) 26. 1957: 2 rt inguinal hernia repair/[place] 27. 1969: Lipoma Removal 28. Tonsillectomy and [...] (Wednesdays) - switched over to semagluitde at [place] - glipizide - stopped 04/2023 Adherence: Oral [...] is requesting to obtain it from the [place]. Per above note, pt does not wish to transition to basal/bolus regimen due to too high complexity and too many injections. Informed the pt that [place] currently only has vials of novolog mix 70/30 - as the pens are on log deck tender's backorder. Reviewed w/ pt and dtr how to use vial and syringe. Pt's dtr works in medical field is very well familiar how to perform injections using vials and syringes. Pt and dtr were able to demonstrate back to the report writer how to use it. Will order it + syringes pt to worm picker at the pharmacy window tomorrow. Reviewed [...] the time in target of 59% on [facility] dexcom upload. It is slightly lower than [...] 20 units TDD: 50 units - Reviewed [place] lab results - Monitor for s/sx hypoglycemia [...] of Preventive Care: Most recent visit to research associate professor: @ [place]; seen by Dr. Reyes 2 weeks ago; Most recent visit to optometry:@[place]; last visit in 2021: 1. Diabetes mellitus [...] monitor and assess /radhames/ TARUN GILL CLINICAL ASSISTANT BOILER OPERATOR Signed: 04/28/2024 08:21 Receipt Acknowledged By: 04/30/2024 20:44 /es/ MARGARITA FLOREZ MD PHYSICIAN TARUN GILLFIELD
--- OUTSIDE RECORDS SUMMARY | 2024-06-01 14:09 | XMS_ITS | Encounter Summary ---
Author Name [place] Address [address] [place] [address] Care Team Providers Care Claims Service Adjustor Name Role Phone JERALD TENORIO Primary Care [...] Relationship to Policy Bejarano AL[place] [facility] Dec 13, 2013 [id number] [phone] DAGMAR,ZIA ERT PATIENT [place] MED[place]ARE SUPPLEMEN [facility] November 06, 2007 [id number] DAGMAR,ZIA ERT PATIENT [place] MED[place] SUPPLEMEN [facility] 2 November 06, 2007 [id number] DAGMAR,ZIA ERT PATIENT [place] MED[place] SUPPLEMEN [facility] 2 November 06, 2007 [id number] [phone] DAGMAR,ZIA ERT PATIENT BCBS OF [facility] MEDICARE SUPPLEMEN [facility] Dec 13, 2013 [id number] DAGMAR,ZIA ERT PATIENT [place] SUPPLEMEN [facility]/ WHITM AN/MX Dec 13, 2008 [id number] DAGMAR,ZIA ERT PATIENT MEDICARE (WNR) MEDICARE () PART B May 15, 2012 PART B [id number] DAGMAR,ZIA ERT PATIENT MEDICARE (WNR) MEDICARE () PART A May 15, 2002 PART A [id number] DAGMAR,ZIA ERT PATIENT MEDICARE (WNR) MEDICARE (M) PART B May 15, 2002 PART B [id number] [phone] DAGMAR,ZIA ERT PATIENT MEDICARE (WNR) MEDICARE () PART A May 15, 2002 PART A [id number] [phone] DAGMAR,ZIA ERT PATIENT MEDICARE (WNR) MEDICARE () PART B May 15, 2002 PART B [id number] [phone] DAGMAR,ZIA ERT PATIENT MEDICARE (WNR) MEDICARE () PART A May 15, 2002 PART A [id number] DAGMAR,ZIA ERT PATIENT MEDICARE (WNR) MEDICARE () PART B May 15, 2002 PART B [id number] [phone] DAGMAR,ZIA ERT PATIENT MEDICARE (WNR) MEDICARE () PART A May 15, 2002 PART A [id number] DAGMAR,ZIA ERT PATIENT Selected Encounter This section includes the information on record at [place] for the Encounter. Date/Time Encounter Type Encounter Description Reason Pro vider Source May 19, 2024 01:33 PM Outpatient Encounter PRIMARY CARE/MEDICINE [facility] Encounter Template Text not used by [place] Plan of Treatment: Future Appointments (+ 6 [...] 2024 03:30 PM [facility] Jul 20, 2024 03:00 PM [facility] Aug 03, 2024 03:00 PM AMBULATORY - MEDICINE [place] [facility] [place] [facility] November 01, 2024 03:30 PM AMBULATORY - MEDICINE [place] [facility] Social History: Smoking Status (Most current) and [...] 2022 01:00 PM [facility] Encounter Notes: All associated encounter [...] standard clinical care, and in accordance with [facility] policy. Patient information was shared with the PD[place]. The VA prescriber, for which I am [...]
--- OUTSIDE RECORDS SUMMARY | 2024-06-01 14:09 | XMS_ITS | Encounter Summary ---
Author Name [place] Address [address] [place] [address] Care Team Providers Care Search Strategist Name Role Phone MARGARITA FLOREZ Primary Care [...] Policy Bejarano ALVA BCBS OF [place] MEDIC[facility] Dec 13, 2013 [id number] DAGMAR,ZIA ERT PATIENT [place] MEDICARE SUPPLEMEN [facility] November 06, 2007 [id number] DAGMAR,ZIA ERT PATIENT [place] MED[place] SUPPLEMEN [facility] 2 November 06, 2007 [id number] [phone] DAGMAR,ZIA ERT PATIENT [place] MED[place] SUPPLEMEN [facility] MEDEX 2 November 06, 2007 [id number] DAGMAR,ZIA ERT PATIENT BCBS OF [facility] MEDICARE SUPPLEMEN [facility] Dec 13, 2013 [id number] [phone] DAGMAR,ZIA ERT PATIENT [place] SUPPLEMEN [facility] MM[facility]/ WHITM AN/MX Dec 13, 2008 [id number] DAGMAR,ZIA ERT PATIENT MEDICARE (WNR) MEDICARE () PART B May 15, 2012 PART B [id number] DAGMAR,ZIA ERT PATIENT MEDICARE (WNR) MEDICARE () PART A May 15, 2002 PART A [id number] [phone] DAGMAR,ZIA ERT PATIENT MEDICARE (WNR) MEDICARE () PART B May 15, 2002 PART B [id number] [phone] DAGMAR,ZIA ERT PATIENT MEDICARE (WNR) MEDICARE () PART A May 15, 2002 PART A [id number] DAGMAR,ZIA ERT PATIENT MEDICARE (WNR) MEDICARE () PART A May 15, 2002 PART A [id number] [phone] DAGMAR,ZIA ERT PATIENT MEDICARE (WNR) MEDICARE () PART B May 15, 2002 PART B [id number] [phone] DAGMAR,ZIA ERT PATIENT MEDICARE (WNR) MEDICARE () PART A May 15, 2002 PART A [id number] DAGMAR,ZIA ERT PATIENT MEDICARE (WNR) MEDICARE () PART B May 15, 2002 PART B [id number] DAGMAR,ZIA ERT PATIENT Selected [...] 12, 2024 03:30 PM AMBULATORY - MEDICINE [facility] Jul 20, 2024 03:00 PM AMBULATORY - MEDIC[facility] Aug 03, 2024 03:00 PM AMBULATORY - MEDICINE [place] [facility] November 01, 2024 03:30 PM AMBULATORY - MEDICINE [place] [facility] Social History: Smoking Status (Most [...] 15, 2022 01:00 PM VA-TOBACCO NEVER USED [facility] Encounter Notes: All associated encounter notes [...] [ X ] At this encounter the [place]'s Insurance information was verified. [ X ] [...]
--- OUTSIDE RECORDS SUMMARY | 2024-06-01 14:09 | XMS_ITS ---
Author Name [place] Address [address] [place] [address] Care Team Providers Care Cultured Marble Products Maker Name Role Phone MARGARITA FLOREZ Primary [...] Policy Bejarano ALVA [place] MED[facility] Dec 13, 2013 [id number] DAGMAR,ZIA ERT PATIENT [place]BS [place] MEDICARE SUPPLEMEN [facility] November 06, 2007 [id number] DAGMAR,ZIA ERT PATIENT [place]BS [place] MED[place] SUPPLEMEN [facility] 2 November 06, 2007 [id number] DAGMAR,ZIA ERT PATIENT [place] MED[place] SUPPLEMEN [facility] 2 November 06, 2007 [id number] [phone] DAGMAR,ZIA ERT PATIENT BCBS OF [facility] MEDICARE SUPPLEMEN [facility] Dec 13, 2013 [id number] DAGMAR,ZIA ERT PATIENT [place] SUPPLEMEN [facility]/ WHITM AN/MX Dec 13, 2008 [id number] DAGMAR,ZIA ERT PATIENT MEDICARE (WNR) MEDICARE () PART B May 15, 2012 PART B [id number] DAGMAR,ZIA ERT PATIENT MEDICARE (WNR) MEDICARE () PART A May 15, 2002 PART A [id number] DAGMAR,ZIA ERT PATIENT MEDICARE (WNR) MEDICARE (M) PART B May 15, 2002 PART B [id number] [phone] DAGMAR,ZIA ERT PATIENT MEDICARE (WNR) MEDICARE () PART A May 15, 2002 PART A [id number] [phone] DAGMAR,ZIA ERT PATIENT MEDICARE (WNR) MEDICARE () PART B May 15, 2002 PART B [id number] [phone] DAGMAR,ZIA ERT PATIENT MEDICARE (WNR) MEDICARE () PART A May 15, 2002 PART A [id number] DAGMAR,ZIA ERT PATIENT MEDICARE (WNR) MEDICARE () PART B May 15, 2002 PART B [id number] DAGMAR,ZIA ERT PATIENT MEDICARE (WNR) MEDICARE () PART A May 15, 2002 PART A [id number] DAGMAR,ZIA ERT PATIENT Selected Encounter This section includes the information on record at [place] for the Encounter. Date/Time Encounter Type Encounter [...] 20 appointments. The data comes from all [place] treatment facilities. Appointment Date/Time Appointment Type Appointme nt Facility Name Jul 12, 2024 03:30 PM [facility]ATORY [facility] MEDICINE [facility] Jul 20, 2024 03:00 PM AMBULATORY - MEDICINE [facility] Aug 03, 2024 03:00 PM [facility] [place] [facility] Social History: Smoking Status (Most current) and Tobacco Use (All prior to encounter date) This section includes the most current, and the historical, smoking and tobacco- related health factors from the [facility] facility where the Encounter took place. Current Smoking Status This section includes the most current smoking, or tobacco-related health factor, from the [place] facility where the Encounter took place. Date/Time Current Smoking Status Comment Facil [facility] Apr 15, 2022 01:00 PM VA-TOBACCO NEVER USED [facility] [place] [facility] Encounter Notes: All associated encounter [...] Documentation:Apr Please see attached scanned document in [facility]. /radhames/ TARUN GILL CLINICAL DINING SERVICES DIRECTOR Signed: 04/28/2024 08:22 TARUN GILL [place]
--- NOTE | 2024-06-01 14:14 | A.OFFVIS_ITS ---
Intake Visit Reasons: 4M PSA/Testo(set) Intake Note: Patient is Present for Follow Up labs results Urology Medication: None Antibiotic Allergies:None Blood Thinners: Plavix(Clopidogrel) Accompanied by: Self / Same As Patient Allergies colbetamide- used for gout Allergy (Unknown, Uncoded 06/01/24 14:32) 50 years ago COLBETAMINE Allergy (Unknown, Uncoded 06/01/24 14:32) SWELLING HPI Comments Details: Chidi is a pleasant male. He is a patient of Dr. Barrientos. He is seen for the following urologic conditions - prostate cancer Slow PSA rise Re-initiate hormones at PSA between 4 and 10 Accompanied by daughter Minimal symptoms PSA 02/04 0.9 T 80, 06/06 1.1 100, 10/06 0.8, 02/05 1.4 T 99, 06/07 2.0 T 81 Prostate cancer Grade Group 4 - 07/02 treatment with intermittent hormone therapy Initial diagnosis of [place] 8 prostate cancer Initial consideration for therapy was external beam radiation Patient opted for intermittent hormone therapy - with intermittent finasteride Laboratories - 09/02 PSA 0.05, 12/03 PSA <0.1 T 10, 03/05, 03/05 PSA 0.06 T 13, 07/06 P 0.15 T 13, 12/04 0.2 T 35, 06/05 0.15 Fin, 10/05 0.7 T 74 Last [facility] 03/04 - 2 years PFSH Medical History Gout GERD (gastroesophageal reflux disease) Diabetes mellitus, type II Elevated PSA Increasing prostate specific antigen (PSA) level after treatment for malignant neoplasm of prostate Prostate cancer Surgical History H/O inguinal hernia repair History of prostate biopsy Family History Father No problems noted. Mother No problems noted. Social History Alcohol intake: never Patient Tobacco Use Status: Never used Tobacco Review of Systems Const Denies chills and Denies fever(s) Card Reports no additional complaints and Denies syncope Resp Denies cough GI Denies abdominal pain and Denies heartburn Reports as per HPI and Denies change in libido Neuro Denies syncope Psych Denies change in libido Endo Denies change in libido Physical Exam Const General: cooperative, healthy appearing, comfortable and no acute distress Orientation/consciousness: patient oriented x3 HEENT Face and sinus: Yes normal facial exam Mouth: moist mucous membranes Neck Neck: Yes normal visual inspection, Yes full ROM and Yes trachea midline Chest Chest palpation & inspection: normal inspection of the chest Resp Effort & Inspection: normal respiratory effort, able to speak in complete sentences and no respiratory distress GI Inspection: Yes normal to inspection Back/Spine/Pelvis Cervical Spine: normal cervical lordosis Thoracic/Lumbar Spine: thoracic and lumbar spine normal to inspection Skin General skin exam: no rashes or lesions noted Neuro General: patient oriented x3, gait normal, tone normal and moves all extremities Extrem General: Yes normal to inspection and Yes capillary refill normal Assessment & Plan Assessment & Plan (1) Prostate cancer: Comment: 201314 Grade Group 4, Initial hormonal treatment Code(s): C61 - Malignant neoplasm of prostate Category: Medical Plan Continue surveillance laboratories Orders: Orders Prostate Specific Antigen 6 Months C61 - Malignant neoplasm of prostate Patient Instructions: Imaging studies, laboratory and physical exam results were discussed and reviewed in detail. No major barriers to patient understanding were identified. An opportunity to ask questions regarding the treatment plan was provided. All questions were answered. The patient expressed understanding and agreement with the above treatment plan. The patient is aware they should contact our office by phone for worsening of their current condition or the appearance of new urologic symptoms. Compliance is encouraged with any medications and followup testing that is ordered. It is a privilege to participate in the urologic care of your patient. If you have any questions or concerns regarding treatment for the above conditions, or other urologic issues, please do not hesitate to contact me. The office telephone contact is [phone]. This note is constructed using voice recognition software. While every effort has been made to ensure accuracy microsoft dynamics manager architect errors may have been included. Yours sincerely, Dr Dhruv Marcos MD, L[facility] - Urology Providers of Expert, Compassionate Care for the Genitourinary System Coding Level of Care Code Est Pt Level 3 (18131) Diagnoses Prostate cancer C61
== END 2024-06-01 15:19 | disposition home or self-care (01) ==
PROVIDERS: Visit Provider Urology
DX: C61 Malignant neoplasm of prostate (principal)
CPT/HCPCS: 99213

== ENCOUNTER → 2024-06-01 14:01 | Outpatient (BNVA) | payer MEDICARE, SELFPAY | PROVIDERS: Visit Provider Urology | DX: C61 Malignant neoplasm of prostate (principal) | CPT/HCPCS: 99212 ==

== ENCOUNTER 2024-11-11 10:45 | Outpatient (REF) | payer MEDICARE, SELFPAY ==
--- OUTSIDE RECORDS SUMMARY | 2024-11-11 11:33 | XMS_ITS | Encounter Summary ---
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 Dec 13, 2013 [id number] DAGMAR,ZIA ERT PATIENT BCBS [place] MEDICARE SUPPLEMEN [facility] G November 06, 2007 [id number] DAGMAR,ZIA ERT PATIENT [place]BS [place] MEDICARE SUPPLEMEN [facility]EX 2 November 06, 2007 [id number] DAGMAR,ZIA ERT PATIENT [place] SUPPLE[place] [facility] 2 November 06, 2007 [id number] DAGMAR,ZIA ERT PATIENT BCBS OF [facility] MEDICARE SUPPLEMEN [facility] Dec 13, 2013 [id number] DAGMAR,ZIA ERT PATIENT [place] OF [place] MED[place] SUPPLEMEN [facility]/ WH[facility]M AN/MX Dec 13, 2008 [id number] DAGMAR,ZIA ERT PATIENT MEDICARE (WNR) MEDICARE () PART B May 15, 2012 PART B [id number] DAGMAR,ZIA ERT PATIENT MEDICARE (WNR) MEDICARE () PART A May 15, 2002 PART A [id number] [phone] DAGMAR,ZIA ERT PATIENT MEDICARE (WNR) MEDICARE () PART A May 15, 2002 PART A [id number] DAGMAR,ZIA ERT PATIENT MEDICARE (WNR) MEDICARE () PART B May 15, 2002 PART B [id number] DAGMAR,ZIA ERT PATIENT MEDICARE (WNR) MEDICARE () PART B May 15, 2002 PART B [id number] DAGMAR,ZIA ERT PATIENT MEDICARE (WNR) MEDICARE () PART A May 15, 2002 PART A [id number] [phone] DAGMAR,ZIA ERT PATIENT MEDICARE (WNR) MEDICARE () PART A May 15, 2002 PART A [id number] [phone] DAGMAR,ZIA ERT PATIENT MEDICARE (WNR) MEDICARE () PART B May 15, 2002 PART B [id number] [phone] DAGMAR,ZIA ERT PATIENT Selected Encounter This section includes the information on record at [place] for the Encounter. Date/Time Encounter Type Encounter Description Reason Pro vider Source Jul 12, 2024 03:30 PM Outpatient Encounter PRIMARY CARE/MEDICINE IHE Encounter [...] Appointment Type Appointme nt Facility Name Aug 11, 2024 10:30 AM [place] [facility] [place] [facility] Aug 15, 2024 08:00 AM [place] [facility] [place] [facility] Aug 18, 2024 03:30 PM [place] [facility] [place] [facility] Aug 24, 2024 11:00 AM AMBULATORY - [facility]IATRY [facility] Sep 07, 2024 03:30 PM AMBULATORY - MEDICINE [facility] Sep 28, 2024 09:30 AM [place] [facility] [facility] October 27, 2024 03:00 PM AMBULATORY - MEDICINE [facility] November 01, 2024 03:30 PM [place] [facility] November 02, 2024 02:30 PM [place] [facility] [facility] Dec 19, 2024 10:30 AM [place] [facility] Dec 28, 2024 03:00 PM [facility] Lab Results: +/- 30 [...] Type Result - Unit Interpretation Reference Range Specimen Type Comment Jun 30, 2024 08:39 AM [place] LIPID PANEL FASTING SERUM Specimen Ty pe: SERUM No comment entered. Ordering Provider: MARGARITA MENDOZA Report Released Date/Time: Dec 19, 2023 06:37 PM Reporting Lab: [facility] [address] [address] Performing Lab: [facility] WSN [address] [address] CHOLESTEROL 113 mg/dL TRIGLYCERIDE 164 mg/dL H 0-150 LDL calculated 38 mg/dL 0-129 CHOL/HDL 2.7 HDL CHOLESTEROL 42 mg/dL 40-60 Jun 30, 2024 08:39 AM [place] HEMOGLOBIN A1C PANEL BLOOD Specimen T ype: BLOOD Comment: Values obtained from A1C measurements can vary. For atypical A1C assays, a reported value of 7.0 could actually be between 6.72 and 7.28 if measured by a reference method. A reported value of 9.0 could actually be between 8.73 and 9.27. Ref: http://www.ngsp.org/CAPdata.asp Ordering Provider: MARGARITA FLOREZ Report Released Date/Time: Dec 19, 2023 06:37 PM Reporting Lab: [address] [address] Performing Lab: [address] [address] HEMOGLOBIN A1C 7.7 H 4.0-5.6 Jun 30, 2024 08:39 AM [place] LIVER FUNCTION SERUM Specimen Type: S ALEXI No comment entered. Ordering Provider: MARGARITA FLOREZ Report Released Date/Time: Dec 19, 2023 06:37 PM Reporting Lab: [address] [address] Performing Lab: [address] [address] PROTEIN,TOTAL 7.0 g/dL 6.0-8.3 ALBUMIN 3.5 g/dL 3.5-5.0 ALKALINE PHOSPHATASE 33 U/L L 40-150 AST 25 U/L 5-34 ALT 29 U/L BILIRUBIN, TOTAL 0.6 mg/dL 0.2-1.2 Jun 30, 2024 08:39 AM [place] BASIC METABOLIC PANEL (fasting) SERUM Specimen Type: SERUM No comment entered. Ordering Provider: MARGARITA FLOREZ Report Released Date/Time: Dec 19, 2023 06:37 PM Reporting Lab: [address] [address] Performing Lab: [address] [address] UREA NITROGEN 28 mg/dL H 7-25 GLUCOSE 180 mg/dL H 65-100 SODIUM 137 mmol/L 135-145 POTASSIUM 4.4 mmol/L 3.5-5.0 CHLORIDE 102 mmol/L 100-110 CO2 25 meq/L 20-30 CREATININE, Serum 1.41 mg/dL H 0.50-1.40 eGFR(CKD-EPI 2020) 48 mL/min L >60 Jun 30, 2024 08:39 AM [place] TSH SERUM Sp ecimen Type: SERUM No comment entered. Ordering Provider: MARGARITA FLOREZ Report Released Date/Time: Dec 19, 2023 06:37 PM Reporting Lab: [facility] [address] [address] Performing Lab: [address] [address] TSH 1.87 u[IU]/mL 0.35-5.00 Jun 30, 2024 08:39 AM [place] MAGNESIUM SERUM Specimen Type: S ALEXI No comment entered. Ordering Provider: MARGARITA FLOREZ Report Released Date/Time: Dec 19, 2023 06:37 PM Reporting Lab: [address] [address] Performing Lab: [address] [address] MAGNESIUM 1.5 mg/dL L 1.6-2.6 Jun 30, 2024 08:39 AM [place] VITAMIN B12 SERUM Specimen Type: S ALEXI No comment entered. Ordering Provider: MARGARITA FLOREZ Report Released Date/Time: Dec 19, 2023 06:37 PM Reporting Lab: [address] [address] Performing Lab: [address] [address] VITAMIN B12 1208 pg/mL H 200-900 Jun 30, 2024 08:39 AM [place] MICROALBUMIN CREATININE RATIO PANEL URINE Specimen Type: URINE No comment entered. Ordering Provider: MARGARITA FLOREZ Report Released Date/Time: Dec 19, 2023 06:37 PM Reporting Lab: [facility] [address] [facility] [address] Performing Lab: [facility] [address] [address] MICROALBUMIN/CREATININE RATIO 40.4 mg/g H 0-29.9 MICROALBUMIN,QUANTITATIVE 3.4 mg/dL RR U NAVAIL CREATININE URINE 84.19 mg/dL Jun 30, 2024 08:39 AM [place] FERRITIN SERUM Specimen Type: S ALEXI No comment entered. Ordering Provider: MARGARITA FLOREZ Report Released Date/Time: Dec 19, 2023 06:37 PM Reporting Lab: [facility] [address] [address] Performing Lab: [facility] [address] [address] FERRITIN 42 ng/mL 20-300 Jun 30, 2024 08:39 AM [place] IRON & TIBC PANEL SERUM Specimen Type : SERUM No comment entered. Ordering Provider: MARGARITA FLOREZ Report Released Date/Time: Dec 19, 2023 06:37 PM Reporting Lab: [facility] [address] [address] Performing Lab: [facility] [address] [address] TIBC 370 ug/dL 204-475 IRON 83 ug/dL 40-160 Transferrin Saturation 22.5 20.0-50.0 Transferrin (TRF) 280 mg/dL 200-360 Jun 30, 2024 08:39 AM [place] CBC AND DIFF (AUTO) BLOOD Specimen Ty pe: BLOOD No comment entered. Ordering Provider: MARGARITA FLOREZ Report Released Date/Time: Dec 19, 2023 06:37 PM Reporting Lab: [facility] [address] [address] Performing Lab: [facility] [address] [address] WBC 8.73 10*3/uL 4.50-11.00 RBC 4.69 10*6/uL 4.23-5.66 HGB 14.0 g/dL 12.8-17 HCT 42.1 39.2-50.4 MCV 89.8 fL 82-99 MCHC 33.3 g/dL 30.8-35.1 PLT 185 10*3/uL 140-360 RDW-CV 12.8 12.0-16.0 MONO, ABS 0.67 10*3/uL 0.30-1.10 MCH 29.9 pg 26.2-32.6 NEUT % 66.5 43.7-75.8 LYMPH % 23.0 14.0-42.3 MONO % 7.7 5.1-13.7 EOS % 2.1 0.4-6.8 BASO % 0.5 0.1-2.0 NEUT, ABS 5.81 10*3/uL 2.20-7.60 LYMPH, ABS 2.01 10*3/uL 1.00-3.20 EOS, ABS 0.18 10*3/uL 0.03-0.44 BASO, ABS 0.04 10*3/uL 0.01-0.13 IMMATURE GRAN % 0.2 0.0-0.7 IMMATURE GRAN, ABS 0.02 10*3/uL 0.00-0.0 6 NRBC % 0.0 0.0-0.0 NRBC, ABS 0.00 10*3/uL 0.00-0.00 Jun 29, 2024 11:36 AM [place] URINALYSIS CLEAN CATCH URINE Specimen Type: URINE Comment: If Glucose = >500 and Ketones are positive, please alert the Physician. Ordering Provider: MARGARITA FLOREZ Report Released Date/Time: Jun 29, 2024 11:24 AM Reporting Lab: [address] [address] Performing Lab: [address] [address] UA COLOR Light-Yellow Yellow UA APPEARANCE Clear Clear UA GLUCOSE 1,000 mg/dL Negative UA KETONES NEGATIVE mg/dL Negative UA BLOOD NEGATIVE mg/dL Negative UA PROTEIN NEGATIVE mg/dL Negative UA NITRITE NEGATIVE mg/dL Negative UA BILIRUBIN NEGATIVE mg/dL Negative UA SPECIFIC GRAVITY 1.014 L 1.016-1.022 UA pH 6.0 5.0-9.0 UA UROBILINOGEN Normal mg/dL <2.0 UA LEUKOCYTE NEGATIVE Negative Jun 13, 2024 02:20 PM [place] URINALYSIS CLEAN CATCH URINE Specimen Type: URINE Comment: If Glucose = >500 and Ketones are positive, please alert the Physician. Ordering Provider: MARGARITA FLOREZ Report Released Date/Time: Jun 09, 2024 09:18 AM Reporting Lab: [facility] [address] [facility] [address] Performing Lab: [address] [address] UA COLOR Colorless Yellow UA APPEARANCE Clear Clear UA GLUCOSE 70 mg/dL Negative UA KETONES NEGATIVE mg/dL Negative UA BLOOD NEGATIVE mg/dL Negative UA PROTEIN NEGATIVE mg/dL Negative UA NITRITE NEGATIVE mg/dL Negative UA BILIRUBIN NEGATIVE mg/dL Negative UA SPECIFIC GRAVITY 1.011 L 1.016-1.022 UA pH 6.5 5.0-9.0 UA UROBILINOGEN Normal mg/dL <2.0 UA LEUKOCYTE NEGATIVE Negative Social History: Smoking Status (Most current) and [...] Jesus fall Apr 28, 2023 03:00 PM [place] NEVER USED [place] Tobacco Use History This section includes a history of the smoking, or tobacco-related health factors, that were collected on or before the date of the Encounter. The data comes from the [place] facility where the Encounter took place. Date/Time Smoking Status/Tobacco Use Comment F acility Apr 09, 2021 10:00 AM [place] NEVER USED [place] Mar 13, 2020 12:30 PM [place] US[place] Feb 02, 2018 02:02 PM [place]-TOBACCO NEVER USED [place] Mar 10, 2017 01:57 PM LIFETIME NON-TOBACCO USER [place] Feb 11, 2016 02:44 PM LIFETIME NON-TOBACCO USER [place] May 09, 2009 09:43 AM LIFETIME NON-TOBACCO USER [place] Pathology Reports: +/- 30 days of the encounter Pathology Reports For cases when an order for pathology services may have been completed prior to the date of the Encounter, the report list includes the Pathology Reports that were completed up to 30 days before dateof the Encounter. For cases when an order for pathology services may have been completed after the date of the Encounter, the report list also includes the Pathology Reports that were completed up to30 days after date of the Encounter. The data comes from all [place] treatment facilities. Date/Time Pathology Report Provider Source Aug 11, 2024 11:02 AM [place] MICROBIOLOGY RE [place]: Reporting Lab: [facility] [CLIA# [id number]] [address] [place] [address] Accession [UID]: [id number] [[id number]] Received: Aug 11, 2024@11:02 Collection sample: URINE CLEAN CATCH Collection date: Aug 11, 2024 11:02 Site/Specimen: URINE Provider: MARGARITA FLOREZ Comment on specimen: none Test(s) ordered: URINE CULTURE(MWROX).......... completed: Aug 15, 2024 12:23 * BACTERIOLOGY FINAL REPORT => Aug 15, 2024 12:23 TECH CODE: [id number] Bacteriology Remark(s): >25,000 - <50,000 CFU/ML MIXED EVARISTO No further workup =--=--=--=--=--=--=--=--=--=--=-- =--=--=--=--=--=--=--=--=--=--=-- =--=--=--=-- Performing Laboratory: Bacteriology Report Performed By: [facility] [CLIA# [id number]] [address] [place] [address] ARIANNA LEONFIELD Jun 29, 2024 11:36 AM [place] MICROBIOLOGY RE PORT: Reporting Lab: [facility] [CLIA# [id number]] [address] [place] [address] Accession [UID]: [id number] [[id number]] Received: Jun 29, 2024@11:41 Collection sample: URINE CLEAN CATCH Collection date: Jun 29, 2024 11:36 Site/Specimen: URINE Provider: MARGARITA FLOREZ Comment on specimen: none Test(s) ordered: URINE CULTURE(MWROX).......... completed: Jul 05, 2024 10:42 * BACTERIOLOGY FINAL REPORT => Jul 05, 2024 10:42 TECH CODE: [id number] Bacteriology Remark(s): >10,000 - <25,000 CFU/ML MIXED GRAM NEGATIVE EVARISTO >10,000 - <25,000 CFU/ML MIXED EVARISTO No further workup =--=--=--=--=--=--=--=--=--=--=-- =--=--=--=--=--=--=--=--=--=--=-- =--=--=--=-- Performing Laboratory: Bacteriology Report Performed By: [facility] [CLIA# [id number]] [address] [place] [id number] ARIANNA LEON [place] Jun 13, 2024 02:20 PM [place] MICROBIOLOGY RE PORT: Reporting Lab: [facility] WSTRFaustino RIOS [facility] [CLIA# [id number]] [address] [place] [address] Accession [UID]: [id number] [[id number]] Received: Jun 13, 2024@14:20 Collection sample: URINE CLEAN CATCH Collection date: Jun 13, 2024 14:20 Site/Specimen: URINE Provider: MARGARITA FLOREZ Test(s) ordered: URINE CULTURE(MWROX).......... completed: Jun 17, 2024 07:21 * BACTERIOLOGY FINAL REPORT => Jun 17, 2024 07:21 TECH CODE: [id number] CULTURE RESULTS: AEROCOCCUS URINAE - Quantity: >50,000 - <75,000 CFU/ml Comment: Aerococcus spp. are usually susceptible to penicillins (i.e. ampicillin), cephalosporins (i.e. cefazolin), vancomycin, and nitrofurantoin. Susceptibilities to fluoroquinolones and trimethoprim-sulfa are variable and these agents are not recommended. Routine susceptibility testing is not done. Please contact ID for more information. Bacteriology Remark(s): <10,000 CFU/ML MIXED GRAM POSITIVE EVARISTO No further workup =--=--=--=--=--=--=--=--=--=--=-- =--=--=--=--=--=--=--=--=--=--=-- =--=--=--=-- Performing Laboratory: Bacteriology Report Performed By: [facility] [CLIA# [id number]] [address] [place] [address] Aerococcus Urinae Performed By: [facility] [CLIA# [id number]] [address] [place] [address] ROSSY SCHMIDT [place] Encounter Notes: All associated encounter notes This section contains the clinical notes associated to the Encounter. Date/Time Encounter Note(s) Provider Source Jul 11, 2024 03:02 PM ADMINISTRATIVE NOT E: LOCAL TITLE: ADMINISTRATIVE NOTE STANDARD TITLE: ADMINISTRATIVE NOTE DATE OF NOTE: JUL 11, 2024@15:02 ENTRY DATE: JUL 11, 2024@15:02:32 AUTHOR: ROSAMARIA JENSEN EXP COSIGNER: URGENCY: STATUS: COMPLETED [facility] [address] [place] [phone] * ORLY ESTELLELIDIA LEAVITT [address] [place], [place] [address] Date: JUL 11, 2024 re: This is a reminder of your upcoming PCP appt with MARGARITA FLOREZ. Appointment Date: Jun@15:30 Appointment Type: In-person visit Fasting blood work NON fasting blood work CONFIRMED APPT WITH THE Sincerely, Office Staff for: MARGARITA FLOREZ Primary Care Provider [facility] [address] [address] T [phone] F [phone] Upcoming Appointments: 07/12/2024 15:30 CWM/SO/PACT 5 07/20/2024 15:00 SPR PODIATRY 1 08/10/2024 11:00 SPR PHARM PACT 2 11/01/2024 15:30 [facility] OPTOMETRY 2 PM APPOINTMENT ABBREVIATION [facility] (SPOPC OR SO = [address]) (GOPC OR GO = [address]) (NHM or NO = [facility]) (VVC - Video Call) (Tel-X Telephone Visit) ( - Telehealth) /radhames/ ROSAMARIA SOTO Signed: 07/11/2024 15:03 ROSAMARIA JENSEN [place]
[2024-11-11 14:08] LABS: Prostate Specific Antigen 3.28 ng/mL (<0.05-4.0)
== END 2024-11-11 10:46 | disposition home or self-care (01) ==
LOC: HO.10HDL 10:45
PROVIDERS: Visit Provider Urology
DX: C61 Malignant neoplasm of prostate (principal); Z12.5 Encounter for screening for malignant neoplasm of prostate
CPT/HCPCS: 36415; 84153

== ENCOUNTER 2024-11-26 08:33 | Outpatient (REF) | payer MEDICARE, SELFPAY ==
--- OUTSIDE RECORDS SUMMARY | 2024-11-26 08:37 | XMS_ITS | Encounter Summary ---
Author Name [facility] Address [address] [place] [id number] Care Team Providers Care Editorial Cartoonist Name Role Phone MARGARITA FLOREZ Primary Care [...] Relationship to Policy Bejarano ALVA BCBS OF [place] MEDICARE [facility]PP[facility] Dec 13, 2013 [id number] DAGMAR,ZIA ERT PATIENT [place] MED[place]ARE SUPP[facility]MEN [facility] G November 06, 2007 [id number] [phone] DAGMAR,ZIA ERT PATIENT [place] MED[place]ARE SUPPLEMEN [facility] 2 November 06, 2007 [id number] DAGMAR,ZIA ERT PATIENT [place] [facility]PP[facility]MEN [facility] MEDEX 2 November 06, 2007 [id number] DAGMAR,ZIA ERT PATIENT BCBS OF [facility] MEDICARE SUPPLEMEN [facility] Dec 13, 2013 [id number] [phone] DAGMAR,ZIA ERT PATIENT [place] SUPPLEMEN [facility]/ WHITM AN/MX Dec 13, 2008 [id number] DAGMAR,ZIA ERT PATIENT MEDICARE (WNR) MEDICARE () PART B May 15, 2012 PART B [id number] DAGMAR,ZIA ERT PATIENT MEDICARE (WNR) MEDICARE () PART A May 15, 2002 PART A [id number] DAGMAR,ZIA ERT PATIENT MEDICARE (WNR) MEDICARE () PART A May 15, 2002 PART A [id number] [phone] DAGMAR,ZIA ERT PATIENT MEDICARE (WNR) MEDICARE () PART B May 15, 2002 PART B [id number] DAGMAR,ZIA ERT PATIENT MEDICARE (WNR) MEDICARE () PART A May 15, 2002 PART A [id number] DAGMAR,ZIA ERT PATIENT MEDICARE (WNR) MEDICARE () PART B May 15, 2002 PART B [id number] [phone] DAGMAR,ZIA ERT PATIENT MEDICARE (WNR) MEDICARE () PART A May 15, 2002 PART A [id number] [phone] DAGMAR,ZIA ERT PATIENT MEDICARE (WNR) MEDICARE () PART B May 15, 2002 PART B [id number] DAGMAR,ZIA ERT PATIENT Selected Encounter This section includes the information on record at [place] for the Encounter. Date/Time Encounter Type Encounter Description Reason Provider Source Sep 28, 2024 09:30 AM MTMS BY PHARM ADDL 15 MIN CLINICAL PHARMACY ICD-10-CM E11.8 Type 2 diabetes mellitus with unspecified complications TAMMY GILL IHGrecia Encounter Template Text not used by [facility] Assessments - Encounter Diagnoses This section includes the primary and secondary diagnoses documented for the Encounter. Date/Time Primary/Secondary Diagnosis Diagnosis Name Provider Source Sep 28, 2024 10:07 AM PRIMARY Type 2 diabetes mellitus with unspecified complications NIK GILL [place] Plan of Treatment: Future Appointments (+ 6 months) and Future Tests (+/- 45 days) The Plan of Treatment section includes future care activities for the patient from [facility] This section includes future appointments and future orders which are active, pending or scheduled. Future Appointments This section includes appointments that were scheduled to occur 6 months from the date of the Encounter, up to a maximum of 20 appointments. The data comes from all [facility] facilities. Appointment Date/Time Appointment Type Appointme nt Facility Name October 27, 2024 03:00 PM AMBULATORY - MEDICINE [facility] November 01, 2024 03:30 PM AMBULATORY - MEDICINE [facility] November 02, 2024 02:30 PM [facility]INE [facility] Dec 19, 2024 10:30 AM [facility] - MEDICINE [facility] Dec 28, 2024 03:00 PM AMBULATORY - MEDICINE [facility] Mar 09, 2025 10:00 AM AMBULATORY - MEDICINE [facility] Social History: Smoking Status (Most current) [...] Jesus fall Apr 28, 2023 03:00 PM [place]-TOBACCO NEVER USED [place] Tobacco Use History This section includes a history of the smoking, or tobacco-related health factors, that were collected on or before the date of the Encounter. The data comes from the [place] facility where the Encounter took place. Date/Time Smoking Status/Tobacco Use Comment F acility Apr 09, 2021 10:00 AM [place]-TOBACCO NEVER USED [place] Mar 13, 2020 12:30 PM [facility]-TOBACCO NEVER USED [place] Feb 02, 2018 02:02 PM [facility]-TOBACCO NEVER USED [place] Mar 10, 2017 01:57 PM LIFETIME NON-TOBACCO USER [place] Feb 11, 2016 02:44 PM LIFETIME NON-TOBACCO USER [place] May 09, 2009 09:43 AM LIFETIME NON-TOBACCO USER [place] Encounter Notes: All associated encounter notes This section contains the clinical notes associated to the Encounter. Date/Time Encounter Note(s) Provider Source Sep 28, 2024 09:41 AM PHARMACY OUTPATIEN T NOTE: LOCAL TITLE: PHARMACY CLINIC NOTE STANDARD TITLE: PHARMACY OUTPATIENT NOTE DATE OF NOTE: SEP 28, 2024@09:41 ENTRY DATE: SEP 28, 2024@09:41:27 AUTHOR: TARUN GILL COSIGNER: URGENCY: STATUS: COMPLETED Patient Name: ORLY LEAVITT was seen via for follow-up for diabetes management treatment. : May Age: 89 Sex: MALE Race: WHITE Subjective: Pt is going through strenght therapy has two sessions left. He had a difficult several months after he was diagnosed with bladder infection which has cleared. He is still not driving. SSRI is helping greatly w/ anxiety and sleep. Subjective:Spoke with 's daughter Mindi [phone] to follow up on pts BG levels. PT's dtr states they are coming down but pt continues to be confused. Per prev: Spoke to pt's dtr Mindi. Pt was in ER last night after he was directed by [facility] to seek urgent care for confusion. He was diagnosed w/ UTI - started on antibiotics today he is taking 4th tablet. Pt was checked for sepsis at the ER - negative; xrays were also performed. Dtr very concerned. Per prev: contacted dtr to review the BG data on pt after switching from mixed insulin to basal/bolus regimen. Pt's dtr stressed that pt is very aggitated. She is looking for guidance from Pcp to prescribe something that would calm pt down . Per prev: Salvage Diver was contacted by dtr Mindi who reports pt has been very lethargic for the last month or so. She decided to stop ozempic attributing the symptoms to it. he has been off ozempic x 3 weeks - unfortunately symptoms continue coupled w/ nervouseness and anxiety. BG are now much higher. Pt's dtr was very emotional as ambulance just picked up her mom as she came down w/ COVID and was unable to breath. Pt was contacted today employee communications coordinator w/ dtr as well to provide detailed instructions on how to convert pt from mixed insulin to basal/bolus regimen. Per prev: Pt presents with his dtr. Dtr states he had two other appts prior to this one -CT scan. Pt is doing well and tolerating the medications very well. Per prev: Pt presents to a f/up w/ his daughter. They had a recent visit w/ help desk intern and pt's labs came back much improved including his eGFR and SrCr. Pt is doing well. Dtr cooks dinner for him every day and is very close to the . Per prev: Pt presents to the visit w/ his dtr Mindi (tel# [phone]). Pt states he is doing well. He was seen by PCP on 09/15/23. Pt has no concerns at this time. per prev: pt was diagnosed w/ T2D but suspects he has had dm for much longer. Pt's dtrs usually comes to the visit w/ pt. Pt has had 6 stents placed. Pt's window dresser Dr. Flannery in [place]. Dr. Ríos is the sink cutter on the outside. Pt lives w/ his [...] 4. Diarrhea 5. Gutierrez's esophagus 6. Insomnia ([facility] [id number]) 7. Bone density below reference range 8. Diabetes Mellitus Type 2 ([facility] [id number]) 9. Obstructive Sleep Apnea of Adult ([facility] [id number]) 10. Prostate Cancer ([facility] [id number]) 11. Chronic kidney disease stage 3 12. Low Back Pain * 13. Vitamin B12 deficiency 14. 2010: Colonoscopy: Polypectomy 15. 11-08-09: PFT: Normal 16. Abdominal aortic aneurysm (SNOMED CT 251256706) 17. Benign essential hypertension (SNOMED CT 6137959) 18. Venous insufficiency of leg (SNOMED CT 416775205) 19. Other dyspnea and respiratory abnormality 20. Coronary arteriosclerosis (SNOMED CT 80054984) 21. CAD: 2005:PTCA 5 TaxusStents: LADx2 RCAx2 Prox RCA x1 22. H/O: gout 23. Hyperglycemia due to type 2 diabetes mellitus (SNOMED CT [id number]) 24. Gastroesophageal reflux disease 25. Hyperlipidemia (SNOMED CT 89608450) 26. 1957: 2 rt inguinal hernia repair/Sikes 1969: Lipoma Removal 28. Tonsillectomy and Adenoidectomy (under age 12) 29. FAM HX-ISCHEM HEART DIS Diabetes Medication Regimen: -- metformin 500 mg bid - decreased d/t CKD; eGFR 48ml/min on 06/2024 - Insulin glargine (semglee) pen 50 units daily in AM - Novolog insulin pen to units TID before meals -- inject 15 minutes before meals. - Semaglutide (ozempic) 0.25 mg weekly (Wednesdays) - pt continues to be on titration dose ? Hypertension: - furosemide 20 mg daily Hyperlipidemia - Simvastaatin 40 mg daily Previous DM Medications: - metformin - pt is not sure why he stopped ? eGFR 40 ml/min - restarted on 03/2023 -- Trulicity 1.5 mg weekly (Wednesdays) - switched over to semagluitde at [place] - glipizide - stopped 04/2023 - Semaglutide (ozempic) - stopped on 05/2024 d/t lethargey and not feeling well eGFR 45 ml/min on 11/2023 --Insulin Aspart mixed (VIAL) 70/30 6:30-7AM = 30 units 6 PM = 20 units TDD: 50 units Adherence: Oral meds: denies missed doses Insulin: denies missed doses Labs: Labs: HEMOGLOBIN A1C TREND Collection DT Spec HGBA1c 06/30/2024 08:39 BLOOD 7.7 H 11/25/2023 09:49 BLOOD 6.7 H 09/16/2023 13:56 BLOOD 6.8 H 04/20/2023 09:44 BLOOD 7.3 H 10/16/2022 09:25 BLOOD 8.3 H CBC TREND Collection DT Spec WBC RBC HGB HCT MCV MCH PLT 06/30/2024 08:39 BLOOD 8.73 4.69 14.0 42.1 89.8 29.9 185 11/25/2023 09:49 BLOOD 7.72 4.35 12.7 L 39.1 L 89.9 29.2 187 09/16/2023 13:56 BLOOD 7.86 4.28 12.8 39.0 L 91.1 29.9 189 04/20/2023 09:44 BLOOD 7.09 4.13 L 12.6 L 38.6 L 93.5 30.5 117 L 10/16/2022 09:25 BLOOD 7.20 4.18 L 12.8 39.2 93.8 30.6 116 L CHEM 7 TREND LAB CUMULATIVE SELECTED Collection DT Spec GLUCOSE BUN CREATIN Sodium K+/Pot CL CO2 06/30/2024 08:39 SERUM 180 H 28 H 1.41 H 137 4.4 102 25 11/25/2023 09:49 SERUM 101 H 29 H 1.50 H 136 4.2 103 26 09/16/2023 13:56 SERUM 234 H 25 1.80 H 140 5.0 106 23 05/27/2023 13:06 SERUM 179 H 32 H 1.67 H 136 4.7 100 25 05/08/2023 13:29 SERUM 174 H 29 H 1.80 H 141 4.6 106 26 Collection DT Spec eGFR 05/16/2009 08:55 SERUM >60 LAB CUMULATIVE SELECTED 2 No selection items chosen for this component. CHEM 7 Results Collection DT Spec Sodium K+/Pot CL CO2 GLUCOSE BUN eGFR 06/30/2024 08:39 SERUM 137 4.4 102 25 180 H 28 H 11/25/2023 09:49 SERUM 136 4.2 103 26 [...] Spec CHOL HDL CHO/HDL LDL-d LDL-c TRIG 06/30/2024 08:39 SERUM 113 42 2.7 38 164 H 11/25/2023 09:49 SERUM 120 36 L 3.3 46 191 H 04/20/2023 09:44 SERUM 128 42 3.0 44 208 H 10/16/2022 09:25 SERUM 130 39 L 3.3 48 214 H 04/08/2022 09:33 SERUM 133 37 L 3.6 47 246 H THYROID PANEL Collection DT Specimen Test Name Result Units Ref Range 06/30/2024 08:39 SERUM TSH 1.87 uIU/mL 0.35 - 5.00 VITAMIN D 25-OH Collection DT Specimen Test Name Result Units Ref Range 11/25/2023 09:49 SERUM VITAMIN D (25-OH) 28 ng/mL 20 - 50 SrCr (last 6 weeks): CREATININE-EGFR - NONE FOUND CRCL IBW: CrCl(est): 41.7 mL/min (Creat:1.41 06/30/24) CRCL ACT: 50.26 mL/min CRCL ADJ: 41.7 mL/min (06/30/24) Vitals: Weight (BMI): 211.8 lb [96.07 kg] (08/11/2024 10:50) Height: 70 in [177.8 cm] (10/15/2021 14:15) BMI: 30.5 Active and Recently Outpatient Medications (including Supplies): Active Outpatient Medications Status Active Outpatient Medications (including Supplies): ALLOPURINOL 100MG TAB TAKE ONE TABLET BY MOUTH TWICE DAILY ACTIVE (S) FOR GOUT AMLODIPINE BESYLATE 5MG TAB TAKE ONE TABLET BY MOUTH ONCE ACTIVE DAILY FOR BLOOD PRESSURE/HEART, DO NOT TAKE WITH GRAPEFRUIT JUICE CLOPIDOGREL BISULFATE 75MG TAB TAKE ONE TABLET BY MOUTH ACTIVE ONCE DAILY Indication: TO PREVENT BLOOD CLOTS FUROSEMIDE 20MG TAB TAKE ONE TABLET BY MOUTH ONCE DAILY TO ACTIVE (S) REMOVE FLUID/CONTROL BLOOD PRESSURE Indication: FOR EDEMA WITH DEFECTIVE KIDNEY FUNCTION GABAPENTIN 300MG CAP TAKE ONE CAPSULE BY MOUTH AT BEDTIME ACTIVE GLUCOSE SENSOR DEXCOM G7 USE 1 SENSOR DIRECTED EVERY 10 ACTIVE DAYS INSULIN SYRINGE 0.5ML 30G 12MM USE 1 SYRINGE ACTIVE (S) SUBCUTANEOUSLY TWICE DAILY FOR INSULIN INJECTIONS INSULIN,ASPART(EQV-NOVLG)100UN/ML FLXPEN INJECT 8 UNITS ACTIVE SUBCUTANEOUSLY THREE TIMES A DAY INJECT 15 MINUTES BEFORE MEALS Indication: FOR DIABETES INSULIN,GLARGINE 100 UNT/ML 3ML SOLOSTAR INJECT 27 UNITS ACTIVE SUBCUTANEOUSLY ONCE DAILY INJECT IN AM Indication: FOR DIABETES MAGNESIUM OXIDE 420MG TAB TAKE ONE TABLET BY MOUTH TWICE ACTIVE (S) DAILY Indication: FOR MAGNESIUM SUPPLEMENTATION METFORMIN HCL 500MG 24HR SA TAB TAKE TWO TABLETS BY MOUTH ACTIVE ONCE DAILY NEEDLE,PEN 31G,5MM USE 1 NEEDLE SUBCUTANEOUSLY FOUR TIMES ACTIVE (S) A DAY FOR USE WITH PEN DEVICE PANTOPRAZOLE NA 20MG EC TAB TAKE ONE TABLET BY MOUTH TWICE ACTIVE DAILY Indication: FOR EXCESSIVE PRODUCTION OF STOMACH ACID SEMAGLUTIDE 0.25MG/0.375ML INJ PEN 3ML INJECT 0.5MG ACTIVE (S) SUBCUTANEOUSLY ONCE A WEEK Indication: FOR TYPE 2 DIABETES MELLITUS SERTRALINE HCL 50MG TAB TAKE ONE-HALF TABLET BY MOUTH ACTIVE (S) EVERY MORNING Indication: FOR ANXIETY SIMVASTATIN 80MG TAB TAKE ONE-HALF TABLET BY MOUTH ONCE ACTIVE (S) DAILY FOR CHOLESTEROL (PILL SPLITTER) USE CUTTER DIRECTED NEEDED TO SPLIT ACTIVE TABLETS Indication: TABLET CUTTER Non-VA ASPIRIN 81MG EC TAB 81MG BY MOUTH DAILY ACTIVE Non-VA CHOLECALCIF 25MCG (D3-1,000UNIT) TAB 25MCG BY MOUTH ACTIVE ONCE DAILY Indication: FOR VITAMIN D DEFICIENCY Non-VA CYANOCOBALAMIN 250MCG TAB 250MCG BY MOUTH ONCE ACTIVE DAILY Non-VA FERROUS GLUCONATE 324MG TAB 324MG BY MOUTH EVERY 48 ACTIVE HOURS Indication: TO SUPPLEMENT IRON Non-VA FISH OIL 1000MG (500MG DHA/EPA) CAP 1000MG BY MOUTH ACTIVE DAILY Non-VA INSULIN,ASPART,HUMAN 70/30 NOVOLOG INJ 16 UNITS ACTIVE SUBCUTANEOUSLY 23 Total Medications MEDICATION RECONCILIATION: LOOD GLUCOSE MONITORING Date: 06/09/24 - reported verbally by dtr. 14 day av mg/dl 35% VERY HIGH 46% HIGH 19% IN RANGE 0% LOW 0% VERY LOW 93% DAYS W/ CGM DATA Date: 06/20/2024: Dtr did not have the BG data for the but reports BG range from 200's -300 mg/dl Date: 06/24/24- reported verbally by dtr. 7 day avg: mg/dl 29% VERY HIGH 52% HIGH 19% IN RANGE 0% LOW 0% VERY LOW 93% DAYS W/ CGM DATA over the weekend: 220's 265 ; 172 Date: 06/29/24 7 day av mg/dl 36% VERY HIGH 52% HIGH 12% IN RANGE 0% LOW 0% VERY LOW 100 % DAYS W/ CGM DATA 07/01/24 PT's dtr did not have the reader available reports verbally the following BG numbers: yesterday: 191 mg/dl - random Fasting BG range: 124 - 163 mg/dl Date: 07/05/24 3 day av mg/dl 5% VERY HIGH 45% HIGH 50% IN RANGE 0% LOW 0% VERY LOW 100 % DAYS W/ CGM DATA DAte: 07/08/24 dtr did not have a reader but states BG are improving 7 days: much improved mostly under 200 mg/dl Date: 09/28/24 10% VERY HIGH 51% HIGH 39% IN RANGE 0% LOW 0% VERY LOW NUTRITION: Diet Patterns: patient eats on avg. [...] Personal Goals: - Get BG under control ASSESSMENT/PLAN: Per prev: Reviewed the most recent [...] is requesting to obtain it from the [place]. Per above note, pt does not wish to transition to basal/bolus regimen due to too high complexity and too many injections. Informed the pt that [place] currently only has vials of novolog mix 70/30 - as the pens are on geosciences associate professor's backorder. Reviewed w/ pt and dtr how to use vial and syringe. Pt's dtr works in medical field is very well familiar how to perform injections using vials and syringes. Pt and dtr were able to demonstrate back to the chief writer how to use it. Will order it + syringes pt to picker/puller at the pharmacy window tomorrow. Reviewed the [...] Will assess futher. Reviewed the upload w/ Dickinson and dtr. f/up end of June. adn [...] if pt drops weight below 200 lbs. Date: 06/09/24 Reviewed the ADR profile of ozempic in many cases in pts >80 yo it is lethargy and gi symptoms. Concerning is the fact that those symptoms did not resolve 3 weeks post stopping ozempic. Discussed w/ dtr to obtain clean urine catch for her father to rule out UTI's. BG high now which could contribute to anxiety/nervouseness. Dtr and chief writer discussed the possibility of converting pt to basal /bolus regimen to better control BG levels and for now stay away from GLP-1 agents. Pt is on TDD of 50 units of insulin daily. BG higher but pt drops overnight - will reduce glargine calculated dose slightly. Assure proper titration and close monitoring. Went over w/ dtr on the instructions. Date: 06/20/24 Reviewed the BG reported by the dtr. Pt continues to be in 200's. REcommend around 15% dose increase on both basal and bolus insulin + appropriate, close titration. REviewed the injections w/ dtr. REviewed nutrition. f/up on Thursday06/24/24 Reviewed the BG data and considering low target range recommend to increase dose of insulin glargine. Pt currently does have UTI however he recently changed to basal /bolus regimen - small titration appropriate. attn PCP Pt's dtr Mindi is requesting to consider anti-depressant/anti-anxiety medication for her dad. She states for the last several months if not a year pt has a lot of anxiety and worry. Pt had appt w/ Catia at but he was sent to ER instead - that was on 06/23/24 thank you ! date: 06/27/24 Pt's BG continue to rise. recommend to further increase insulin w/ frequent f/upl. Per dtr pt continues to be confused and aggitated. He is almost done w/ the antibiotic course. Recommend for pt to check in at sick call to asure the UtI is clearing. close f/up. DATE: 06/29/24 Pt's BG continue to increase. At this time recommend minimally 20% dose increase on both basal and bolus + restarting ozempic. Consulted w/ pcp in agreement. In addition to that; pcp recommends to repeat all blood work. notes from [facility] ER have been requested. Pt will be closely followed up w/ the team. Pt has pcp appt next week. PCP may consider adding medication for anxiety at the next visit. Date: 07/01/24 Reviewed the BG data - limited - BG overall is coming down <200 mg/dl. Recommend to slightly incresae the Novolog. REviewed nutrition and proper hydration. pt will be f/up on Thursday07/05/24. Date: 07/05/24 Pt's time in target improved is at 50% at this time - last 3 days. At this time the only recommendation is to increase dinner novolog to 10 units. Per pt's dtr pt does not snack ; does not go to the mall anymore - he is very nervous and hallucinates at night time. Pt's dtr was informed that the PCP did prescribe SSRI - dtr will pick it up at the [facility] window tomorrow 07/06/24. Pt also to c/t on ozempic. Date: 07/08/24 Per dtr's report the BG are improving even thought pt remains confused. Reviewed the target ranges. At this time no changes. Continue to reinforce nutrition. Pt is tolerating low dose of ozempic c/t on that dose. Date: 09/28/24 Reviewed the sensor upload time in target still low at 39%. Recommend to increase the dose of ozempic to therapeutic dose of 0.5 mg weekly. Plus recommend to slightly increase the dose of insulin novolog. Discussed w/ pt and dtr nutrition. Pt overall is doing much better. f/up in 1 month Pt to see pcp next week. pt was also provided w/ 1800 number to dexcom if sensors fail he is to contact; pt's 2 sensors have not worked why he is early for rx refill. DIABETES A1c is above goal of <7% - Medication management Diabetes Objective: Diabetes Medication Regimen: -- c/t metformin 500 mg bid - decreased d/t CKD; eGFR 31ml/min on 08/08 eGFR 45 ml/min on 11/2023 -c/t Insulin glargine (semglee) pen 50 units daily in AM - INCREASE Novolog insulin pen to 10/10/10 units TID before meals -- inject 15 minutes before meals. - INCREASE ozempic to 0.5 mg weekly (Wednesdays) Hypertension: - furosemide 20 mg daily Hyperlipidemia - Simvastaatin 40 mg daily - [facility]ed [facility] - Monitor for s/sx hypoglycemia and contact clinic if BG consistently <70mg/dL - Healthy dietary and lifestyle modifications encouraged - increase water intake to minimally 40oz/day - Repeat A1c:X 3 months HTN: recent BP ; amlodipine,furosemide; lisinopril; metoprolol; BRIDGET-I/ARB - defer to PCP ASCVD: clopidogrel; ASA 81 mg daily ; fenofibrate; niacin; simvastatin, fish oil Microalb:n/a History of Preventive Care: Most recent visit to airframe technician: @ [place]; seen by Dr. Reyes 2 weeks ago; Most recent visit to optometry:@[place]; last visit in 2021: 1. Diabetes mellitus without retinopathy or macular edema. Clinic's Next Scheduled Follow-up: Oct, 2024 No barriers; Patient understands and agrees to current treatment plan. If he has any questions, concerns, or changes in current health status he will call or come in to the [facility].and agrees to current treatment plan. If he has any questions, concerns, or changes in current health status he will call or come in to the [facility]. FUTURE APPOINTMENTS: 11/01/2024 15:30 [facility] 2 PM 12/28/2024 15:00 [facility] PODIATRY 1 04/18/2025 15:30 SPR PACT 5 DM type is : DMII Length of Visit: 30 minutes PBM PharmD Pharmacotherapy Rem V12: PHARMACIST INTERVENTIONS: TYPE 2 DIABETES MELLITUS Medication Intervention(s) Adjust dose or frequency of current medication due to other reason Plan: INCREASE DOSE OF SEMAGLUTIDE AND INSULIN NOVOLOG Medication monitoring, no dosage change required, continue to monitor and assess /radhames/ TARUN GILL CLINICAL [employer] LEAD TEACHER Signed: 09/28/2024 13:28 Receipt Acknowledged By: 09/28/2024 16:53 /es/ MARGARITA FLOREZ MD PHYSICIAN TARUN GILL [place]
[2024-12-02 17:04] LABS: Testosterone, Total 104 ng/dL (250-1100)
== END 2024-11-26 08:34 | disposition home or self-care (01) ==
LOC: HO.LAB 08:33
PROVIDERS: PCP Internal Medicine; Visit Provider Urology
DX: R79.89 Other specified abnormal findings of blood chemistry (principal)
CPT/HCPCS: 36415; 84403

== ENCOUNTER 2024-11-30 14:05 | Outpatient (AMB) | payer MEDICARE, SELFPAY ==
--- NOTE | 2024-11-30 14:05 | MHC.OFFVIS ---
Intake Visit Reasons: 6m/labs Intake Note: Patient is Present for Follow Up telehealth Urology Medication: None Antibiotic Allergies:None Blood Thinners: Plavix(Clopidogrel) Accompanied by: Self / Same As Patient Allergies colbetamide- used for gout Allergy (Unknown, Uncoded 06/01/24 14:32) 50 years ago COLBETAMINE Allergy (Unknown, Uncoded 06/01/24 14:32) SWELLING HPI Comments Details: Chidi is a pleasant male. He is a patient of Dr. Barrientos. He is seen for the following urologic conditions - prostate cancer Telemedicine Evaluation 15 min Consultation DoximCustora Rasheed Video PSA continues to rise Close to threshold to reinitiate hormone therapy Otherwise he is feeling well PSA 02/04 0.9 T 80, 06/06 1.1 100, 10/06 0.8, 02/05 1.4 T 99, 06/07 2.0 T 81, 11/06 3.28 Prostate cancer Grade Group 4 - 07/02 treatment with intermittent hormone therapy Initial diagnosis of Teo 8 prostate cancer Initial consideration for therapy was external beam radiation Patient opted for intermittent hormone therapy - with intermittent finasteride Laboratories - 09/02 PSA 0.05, 12/03 PSA <0.1 T 10, 03/05, 03/05 PSA 0.06 T 13, 07/06 P 0.15 T 13, 12/04 0.2 T 35, 06/05 0.15 Fin, 10/05 0.7 T 74, 11/06 3.2 Last [facility] 03/04 - 2 years PFSH Medical History Gout GERD (gastroesophageal reflux disease) Diabetes mellitus, type II Elevated PSA Increasing prostate specific antigen (PSA) level after treatment for malignant neoplasm of prostate Prostate cancer Surgical History H/O inguinal hernia repair History of prostate biopsy Family History Father No problems noted. Mother No problems noted. Social History Alcohol intake: never Patient Tobacco Use Status: Never used Tobacco Review of Systems Const All systems reviewed & are unremarkable except as noted in HPI and below Reports no additional complaints Resp Reports no additional complaints GI Reports no additional complaints Reports as per HPI Musc Reports no additional complaints Physical Exam Telemedicine evaluation Appropriate responses Regular breathing rate and rhythm HEENT Head: Yes normal to inspection Ears: hearing grossly normal bilaterally Eyes General: appearance normal, both eyes and all related structures Neck Neck: Yes normal visual inspection Chest Chest palpation & inspection: normal inspection of the chest Resp Effort & Inspection: normal respiratory effort and able to speak in complete sentences Telehealth Telehealth Telehealth Platform: SingleHop Location of provider rendering services: practice address Location of patient: address on file Patient Identification confirmed using: Name, : Yes Telehealth method: video Patient verbally consented to treatment: Yes Patient verbally consented to billing insurance company: Yes Patient informed of any privacy concerns related to visit: Yes Minutes spent on Phone/Video with Pt.: 15 Assessment & Plan Assessment & Plan (1) Prostate cancer: Comment: 201314 Grade Group 4, Initial hormonal treatment Code(s): C61 - Malignant neoplasm of prostate Category: Medical Plan Four month follow-up PSA office Orders: Orders Testosterone, Total 11/26/24 R79.89 - Other specified abnormal findings of blood chemistry Prostate Specific Antigen 4 Months C61 - Malignant neoplasm of prostate Patient Instructions: This note is constructed using voice recognition software. While every effort has been made to ensure accuracy fibrous wallboard inspector errors may have been included. Imaging studies, laboratory and physical exam results were discussed and reviewed in detail. No major barriers to patient understanding were identified. An opportunity to ask questions regarding the treatment plan was provided. All questions were answered. The patient expressed understanding and agreement with the above treatment plan. The patient is aware they should contact our office by phone for worsening of their current condition or the appearance of new urologic symptoms. Compliance is encouraged with any medications and followup testing that is ordered. It is a privilege to participate in the urologic care of your patient. If you have any questions or concerns regarding treatment for the above conditions, or other urologic issues, please do not hesitate to contact me. The office telephone contact is [phone]. Sincerely, Dr Dhruv Marcos MD, [facility] - Urology Compassionate Specialist Care for the Genitourinary System Coding Level of Care Code Tele Est Pt Level 3 (14887) Complex EM visit Add On G2211 Diagnoses Prostate cancer C61
== END 2024-11-30 16:05 | disposition home or self-care (01) ==
LOC: HO.HUSH 14:05
PROVIDERS: PCP Internal Medicine; Visit Provider Urology
DX: C61 Malignant neoplasm of prostate (principal)
CPT/HCPCS: 99213; G2211

== ENCOUNTER → 2024-11-30 14:05 | Outpatient (BNVA) | payer MEDICARE, SELFPAY | PROVIDERS: PCP Internal Medicine; Visit Provider Urology | DX: R79.89 Other specified abnormal findings of blood chemistry (principal) ==

== ENCOUNTER 2025-03-15 06:38 | Outpatient (REF) | payer MEDICARE, SELFPAY ==
--- OUTSIDE RECORDS SUMMARY | 2025-03-15 06:43 | XMS_ITS | Encounter Summary ---
Author Organization [facility] Address [address] [place] [address] Phone Care Team Providers Care Heavy Equipment Operating Engineer Name Role Phone Bairon Ramachandran MD Primary Care Provider Jerald Tenorio MD Primary Care Prov ider Encounter Details Date Type Department Care Team (Late st Contact Info) Description 04/29/2017 Procedure Pass [facility] Endoscopy Admitting Dept Virtual Department [address] [place] [address] Social History Tobacco Use Types Packs/Day Years Used Date Smoking Tobacco: Never Smokeless Tobacco: Never Alcohol Use Standard Drinks/Week Comments Yes 4 (1 standard drink = 0.6 oz pur e alcohol) Sex and Gender Information Value Date Recorded Sex Assigned at Not on file Legal Sex Male 10:14 PM EDT Gender Identity Not on file Sexual Orientation Not on file documented as of this encounter Plan of Treatment Not on file documented as of this encounter Visit Diagnoses Not on filedocumented in this encounter Care Teams Heavy Equipment Operating Engineer Relationship Specialty Start Date End Date Bairon Ramachandran MD [address] [place] [address] PCP - General Cardiology 04/29/17 08/10/22 Jerald Tenorio MD [address] [place] [id number] PCP - General Internal Medicine 08/11/22 documented as of this encounter Additional Source Comments The information contained in this document represents components of the legal health record. It is not the complete legal health record.[facility]
--- OUTSIDE RECORDS SUMMARY | 2025-03-15 06:43 | XMS_ITS | Encounter Summary ---
Author Organization [facility] Address [address] [place] [address] Phone Care Team Providers Care Rehab Office Coordinator Name Role Phone Bairon Ramachandran MD Primary Care Provider Jerald Tenorio MD Primary Care Prov ider Encounter Details Date Type Department Care Team (Late st Contact Info) Description 05/17/2019 Procedure Pass [facility] Endoscopy Admitting Dept Virtual Department [address] [place] [address] Social History Tobacco Use Types Packs/Day Years Used Date Smoking Tobacco: Never Smokeless Tobacco: Never Alcohol Use Standard Drinks/Week Comments Yes 4 (1 standard drink = 0.6 oz pur e alcohol) month Sex and Gender Information Value Date Recorded Sex Assigned at Not on file Legal Sex Male 10:14 PM EDT Gender Identity Not on file Sexual Orientation Not on file documented as of this encounter Plan of Treatment Not on file documented as of this encounter Visit Diagnoses Not on filedocumented in this encounter Care Teams Rehab Office Coordinator Relationship Specialty Start Date End Date Bairon Ramachandran MD [address] [place] [address] PCP - General Cardiology 04/29/17 08/10/22 Jerald Tenorio MD [address] [place] [address] PCP - General Internal Medicine 08/11/22 documented as of this encounter Additional Source Comments The information contained in this document represents components of the legal health record. It is not the complete legal health record.[facility]
--- OUTSIDE RECORDS SUMMARY | 2025-03-15 06:43 | XMS_ITS | Clinical Summary ---
Author Organization [facility] Address [address] [place] [phone] Phone Care Team Providers Care Toll Line Repairer Name Role Phone Physician, Pcp Unknown Primary Care Provider Emmy vailable Allergies No known active allergies Medications No known medications Medical History Medical History Date Comments Cancer (CMS/[facility] V24, CMS/[facility] V28) Social History Tobacco Use Types Packs/Day Years Used Date Smoking Tobacco: Never Smokeless Tobacco: Never Tobacco Cessation:Counseling Given: Not Answered Sex and Gender Information Value Date Recorded Sex Assigned at Male 06/23/2024 9:42 PM EST Legal Sex Male 1:36 PM EST Gender Identity Male 06/23/2024 9:42 PM EST Sexual Orientation Straight 06/23/2024 9: 42 PM EST Obstetrics History Last Filed Vital Signs Vital Sign Reading Time Taken Comments Blood Pressure 135/66 06/24/2024 12:01 AM EST Pulse 78 06/24/2024 12:01 AM EST Temperature 36.3 C (97.3 F) 06/24/2024 12:01 AM EST Respiratory Rate 16 06/24/2024 12:01 AM EST Oxygen Saturation 96% 06/24/2024 12:01 AM EST Inhaled Oxygen Concentration - - Weight 98.9 kg (218 lb) 06/23/2024 5:37 PM EST Height 177.8 cm (5' 10 ) 06/23/2024 5:37 PM EST Body Mass Index 31.28 06/23/2024 5:37 PM EST Plan of Treatment Health Maintenance Due Date Last Done Comments Diabetes: Annual Foot Exam 1945 Diabetes: Annual Retina Eye Exam 1945 DTaP,Tdap,and Td Vaccines (1 - Tdap) 1954 Pneumococcal Vaccine: 50+ Ye ars (1 of 1 - PCV) 1987 Zoster Vaccines (1 of 2) 1987 RSV Immunization Adult Patie nts (1 - 1-dose 75+ series) 2012 Depression Screening 06/15/2024 Cholesterol Screening (Lipid Panel) 06/24/2024 Diabetes: Blood Sugar Contro l Test (HGBA1C) 06/24/2024 Falls Risk Assessment 06/24/2024 Medicare Annual Wellness Visit 06/24/2024 Social Influencers of Health Screening 06/24/2024 COVID-19 Vaccine (1 - 2023-2 5 season) 2025 Influenza Vaccine (#1) 2025 Hypertension/CHF/CAD Annual BMP Blood Test 06/23/2025 06/23/2024 HIB Vaccines Aged Out No longer eligi ble based on patient's age to complete this topic HPV Vaccines Aged Out No longer eligi ble based on patient's age to complete this topic Hepatitis A Vaccines Aged Out No long er eligible based on patient's age to complete this topic Hepatitis B Vaccines Aged Out No long er eligible based on patient's age to complete this topic IPV Vaccines Aged Out No longer eligi ble based on patient's age to complete this topic MMR Vaccines Aged Out No longer eligi ble based on patient's age to complete this topic Meningococcal ACWY Vaccine Aged Out N o longer eligible based on patient's age to complete this topic Meningococcal B Vaccine Aged Out No l onger eligible based on patient's age to complete this topic RSV Immunization Patients Un maxwell 20 months Aged Out No longer eligible b ased on patient's age to complete this topic Varicella Vaccines Aged Out No longer eligible based on patient's age to complete this topic Procedures Procedure Name Priority Date/Time Associated Diagnosis Comments COMPREHENSIVE METABOLIC PANEL STAT 06/23/2024 6:02 PM EST from Last 3 Months or Most Recently Relevant to Health Maintenance Results * (ABNORMAL) Comprehensive metabolic panel (06/23/2024 6:02 PM EST) Sodium 133 133 - 145 mmol/L LAB CHEMISTRY METHOD 06/23/2024 6:55 PM EST [facility] Potassium 4.2 3.5 - 5.5 mmol/L LAB CHEMISTRY METHOD 06/23/2024 6:55 PM [facility] Chloride 99 96 - 110 mmol/L LAB CHEMISTRY METHOD 06/23/2024 6:55 PM [facility] CO2 27 21 - 32 mmol/L LAB CHEMISTRY METHOD 06/23/2024 6:55 PM [facility] Anion Gap 7 3 - 11 LAB CHEMISTRY METHOD 06/23/2024 6:55 PM [facility] Glucose 215(H) 70 - 100 mg/dL LAB CHEMISTRY METHOD 06/23/2024 6:55 PM [facility] BUN 33(H) 5 - 25 mg/dL LAB CHEMISTRY METHOD 06/23/2024 6:55 PM [facility] Creatinine 1.61(H) 0.70 - 1.30 mg/dL LAB CHEMISTRY METHOD 06/23/2024 6:55 PM [facility] eGFR 41(L) >=60 mL/min/1. 73m2 LAB CHEMISTRY METHOD 06/23/2024 6:55 PM [facility] Comment:Calculation based on the Chronic Kidney Disease Epidemiology Collaboration (CKD-EPI) equation refit without adjustment for race. BUN/Creatinine Ratio 20.5 LAB CHEMISTRY METHOD 06/23/2024 6:55 PM [facility] Calcium 9.2 8.5 - 10.5 mg/dL LAB CHEMISTRY METHOD 06/23/2024 6:55 PM [facility] AST (SGOT) 24 10 - 42 unit/L LAB CHEMISTRY METHOD 06/23/2024 6:55 PM [facility] ALT (SGPT) 37 10 - 60 unit/L LAB CHEMISTRY METHOD 06/23/2024 6:55 PM [facility] Alkaline Phosphatase 45 42 - 121 unit/L LAB CHEMISTRY METHOD 06/23/2024 6:55 PM [facility] Total Protein 7.2 6.0 - 8.0 g/dL LAB CHEMISTRY METHOD 06/23/2024 6:55 PM EST [facility] Albumin 3.7 3.2 - 5.0 g/dL LAB CHEMISTRY METHOD 06/23/2024 6:55 PM EST [facility] Total Bilirubin 0.5 0.0 - 1.4 mg/dL LAB CHEMISTRY METHOD 06/23/2024 6:55 PM EST [facility] Blood Venous blood specimen / Unknown Venipuncture / Unknown 06/23/2024 6:02 PM EST 06/23/2024 6:13 PM EST us Vannessa SIERRA LAB BLOOD ORDERABLES Final Re sult [facility] ([facility] [address] [place] [address], from Last 3 Months or Most Recently Relevant to Health Maintenance Insurance MEDICARE [facility] Care Teams Toll Line Repairer Relationship Specialty Start Date End Date Physician, Pcp Unknown PCP - General 06/23/24
--- OUTSIDE RECORDS SUMMARY | 2025-03-15 06:43 | XMS_ITS | Clinical Summary ---
Author Organization [facility] Address [address] [place] [address] Phone Care Team Providers Care Parking Supervisor Name Role Phone Jerlad Jamison MD Primary Care Prov ider Allergies Active Allergy Reactions Criticality Noted Date Comments Colchicine Swelling High 08/11/2022 Medications allopurinol (ZYLOPRIM) 100 MG tablet Take 100 mg by mouth in the morning and 100 mg in the evening. Active amLODIPine (NORVASC) 5 MG tablet Take 5 mg by mouth in the morning. Active aspirin 81 MG chewable tablet Chew 81 mg in the morning. Active clopidogrel (PLAVIX) 75 MG tablet Take 75 mg by mouth in the morning. Active fenofibrate (TRICOR) 145 MG tablet Take 145 mg by mouth in the morning. Active gabapentin (NEURONTIN) 300 MG capsule Take 1 capsule by mouth in the morning. 07/03/2022 Active insulin aspart protamine-insul in aspart (NovoLOG 70/30) (70-30) 100 UNIT/ML injection Inject 24 Units under the skin in the morning and 24 Units in the evening. 20 units at night .. Active metFORMIN (GLUCOPHAGE) 500 MG tablet Take 500 mg by mouth in the morning and 500 mg in the evening. Active metoprolol succinate XL (TOPROL-XL) 200 MG 24 hr tablet Take 100 mg by mouth in the morning. Active simvastatin (ZOCOR) 40 MG tablet Take 40 mg by mouth in the morning. Active omeprazole OTC (PriLOSEC OTC) 20 MG EC tablet Take 20 mg by mouth in the morning and 20 mg in the evening. Active [place]-3 Fatty Acids 300 MG capsule Take 2,000 mg by mouth in the morning and 2,000 mg in the evening. 2000 mg in the AM 2000 mg at night. Active insulin glargine (LANTUS) 100 UNIT/ML injection Inject 50 mL under the skin every night Active insulin regular (HumuLIN,NovoLI N) 100 UNIT/ML injection Inject 10 mL under the skin in the morning and 10 mL at noon and 10 mL in the evening. Inject before meals. Active furosemide (LASIX) 20 MG tabletIndicatio ns:Edema Take 2 tablets (40 mg total) by mouth 1 (one) time each day 10/03/2024 Active Active Problems Problem Noted Date Diagnosed Date Hypertension 06/29/2024 Hypomagnesemia 06/29/2024 Iron deficiency anemia, not otherwise specified 06/29/2024 Stage 3 chronic kidney disease 07/14/2023 Gout 07/14/2023 Coronary arteriosclerosis 07/14/2023 Gastroesophageal reflux disease 07/14/2023 Overview (07/14/2023): Apr 09, 2021 Entered By: JERALD FLOREZ Comment: Gutierrez's esophagus, c/w EGD q3y Type 2 diabetes mellitus 11/01/2022 Overview (07/14/2023): Last Assessment & Plan: Control reasonable given age, co-morbidities. No frequent or severe hypoglycemia. No pattern to BG readings to guide rx adjustment. Continue to work on eating healthy & keeping active, as able. Discussed timing of insulin in relation to meals. Advised to vary time of day he tests & do some readings fasting. To call or send in BG with problems with glycemic control. Up to date with ophtho. Follows with podiatry. [facility]. BP under reasonable control. Encounters Date Type Department Care Team Description 02/20/2025 Orders Only [facility].[address] [phone] Leander Ramsey MD Stage 3b chronic kidney disease (HCC); Hypertension from Last 3 Months Family History Medical History Relation Comments Colon cancer Mother Relation Status Comments Mother Social History Tobacco Use Types Packs/Day Years Used Date Smoking Tobacco: Never Smokeless Tobacco: Never Tobacco Cessation:Counseling Given: Not Answered Alcohol Use Standard Drinks/Week Comments Yes 0 (1 standard drink = 0.6 oz pur e alcohol) Sex and Gender Information Value Date Recorded Sex Assigned at Not on file Legal Sex Male 9:02 AM EST Gender Identity Not on file Sexual Orientation Not on file Last Filed Vital Signs Vital Sign Reading Time Taken Comments Blood Pressure 122/62 10/03/2024 3:06 PM EDT Pulse 81 10/03/2024 3:06 PM EDT Temperature - - Respiratory Rate - - Oxygen Saturation 99% 10/03/2024 3:06 PM EDT Inhaled Oxygen Concentration - - Weight 98 kg (216 lb) 10/03/2024 3:06 PM EDT Height - - Body Mass Index - - Plan of Treatment Upcoming Encounters Date Type Department Care Team (Late st Contact Info) Description 04/12/2025 1:00 PM EDT [facility] [address] [address] Karen Edward ARNP [address] [phone] Health Maintenance Due Date Last Done Comments Pneumococcal Vaccine: 50+ Ye ars (1 of 2 - PCV) 1954 Diabetes: Hemoglobin A1C 05/26/2023 Diabetes: Ophthalmology Exam 05/26/2023 Diabetes: Pedal Pulse Checked 05/26/2023 Diabetes: Sensory Foot Exam 05/26/2023 Diabetes: Visual Foot Exam 05/26/2023 Influenza Vaccine (#1) 2025 Hepatitis B Vaccine Aged Out No longe r eligible based on patient's age to complete this topic Insurance [facility] [place] 1,2,3 (VACCN) Medicare [facility] Medicare [facility] [place] 1,2,3 (VACCN) Care Teams Parking Supervisor Relationship Specialty Start Date End Date Jerald Jamison MD [address] [place] [id number] PCP - General Internal Medicine 05/26/23
--- OUTSIDE RECORDS SUMMARY | 2025-03-15 06:43 | XMS_ITS | Encounter Summary ---
Author Organization [facility] Address [address] [facility] [address] [address] [facility] [address] [place] [address] Phone Care Team Providers Care Independent Insurance Adjuster Name Role Phone Jerald Jamison MD Primary Care Prov ider Encounter Details Date Type Department Care Team (Late st Contact Info) Description 12/30/2023 Office Communication [facility] [address] [facility] [address] [place] [phone] Karen Edward ARNP [address] [phone] Social History Tobacco Use Types Packs/Day Years Used Date Smoking Tobacco: Never Smokeless Tobacco: Never Alcohol Use Standard Drinks/Week Comments Yes 0 (1 standard drink = 0.6 oz pur e alcohol) Sex and Gender Information Value Date Recorded Sex Assigned at Not on file Legal Sex Male 9:02 AM EST Gender Identity Not on file Sexual Orientation Not on file documented as of this encounter Plan of Treatment Upcoming Encounters Date Type Department Care Team (Late st Contact Info) Description 04/12/2025 1:00 PM EDT [facility] [address] [facility] [address] [place] [address] Karen Edward ARNP [address] [phone] documented as of this encounter Visit Diagnoses Not on filedocumented in this encounter Care Teams Independent Insurance Adjuster Relationship Specialty Start Date End Date Jerald Jamison MD [address] [place], [place] [phone] PCP - General Internal Medicine 05/26/23 documented as of this encounter
--- OUTSIDE RECORDS SUMMARY | 2025-03-15 06:43 | XMS_ITS | Encounter Summary ---
Author Organization [facility] Address [address] [place] [address] Phone Care Team Providers Care Circular Sawyer Stone Name Role Phone Jerald Tenorio MD Primary Care Prov ider Encounter Details Date Type Department Care Team (Late st Contact Info) Description 08/11/2022 Procedure Pass [facility] Endoscopy Admitting Dept Virtual Department [address] [place] [id number] Social History Tobacco Use Types Packs/Day Years [...] on filedocumented in this encounter Care Teams Circular Sawyer Stone Relationship Specialty Start Date End Date Jerald Tenorio MD [address] [place] [address] PCP - General Internal Medicine 08/11/22 documented as of this encounter Additional Source Comments The information contained in this document represents components of the legal health record. It is not the complete legal health record.[facility]
--- OUTSIDE RECORDS SUMMARY | 2025-03-15 06:44 | XMS_ITS | Clinical Summary ---
Author Organization [facility] Address [address] [place] [address] Phone Care Team Providers Care Boot And Shoe Laborer Name Role Phone Jerald Tenorio MD Primary Care Prov ider Allergies Active Allergy Reactions Criticality Noted Date Comments Colchicine Swelling High 08/11/2022 Medications fenofibrate (TRICOR) 145 MG tablet Take 145 mg by mouth daily. Active metoprolol succinate (TOPROL-XL) 200 MG 24 hr tablet Take 100 mg by mouth daily. Active allopurinol (ZYLOPRIM) 100 MG tablet Take 100 mg by mouth daily. Active NIACIN, BULK, MISCIndications: 1 in am 2 in pm 500 mg by Miscellaneous route 2 (two) times a day. Indications: 1 in am 2 in pm Active simvastatin (ZOCOR) 40 MG tablet Take 40 mg by mouth nightly. Active lisinopril (PRINIVIL,ZESTRI L) 20 MG tablet Take 10 mg by mouth daily. 5 mg Active clopidogrel (PLAVIX) 75 mg tablet Take 75 mg by mouth daily. Active aspirin 81 mg chewable tablet Take 81 mg by mouth daily. Active omega-3 fatty acids 300 mg Cap Take 1,000 mg by mouth. Active FOLIC ACID, BULK, MISC 800 mg by Miscellaneous route. Active furosemide (LASIX) 20 MG tablet Take 20 mg by mouth. Active omeprazole (PRILOSEC) 20 mg TbEC Take 20 mg by mouth daily before breakfast. Active metFORMIN (GLUCOPHAGE) 500 MG tablet Take 500 mg by mouth 2 (two) times a day with meals. Active glipiZIDE (GLUCOTROL) 10 MG tablet Take 10 mg by mouth 2 (two) times a day before meals. Active amLODIPine (NORVASC) 5 MG tablet Take 5 mg by mouth daily. Active cyanocobalamin, vitamin B-12, 1000 MCG tablet Take 100 mcg by mouth daily. Active cholecalciferol, vitamin D3, (VITAMIN D3 ORAL) Take by mouth daily. Active acetaminophen-co deine (TYLENOL #2) 300-15 mg per tablet 10/21/19 Active gabapentin (NEURONTIN) 300 MG capsule Take 1 capsule by mouth nightly at bedtime. 07/03/19 Active LORazepam (ATIVAN) 0.5 MG tablet lorazepam 0.5 mg tablet Active mineral oil/petrolatum,w chong (WHITE PETROLATUM-CAR REPOSSESSOR AL OIL OPHT) APPLY THIN RIBBON INTO EACH EYE AT BEDTIME 10/10/19 Active oxyCODONE 5 MG immediate release tablet oxycodone 5 mg tablet Active polyethylene glycol (GOLYTELY) 236-22.74-6.74 -5.86 gram solution peg 3350-electrolytes 236 gram-22.74 gram-6.74 gram-5.86 gram solution Active tamsulosin (FLOMAX) 0.4 mg Cap tamsulosin 0.4 mg capsule Active furosemide (LASIX) 40 MG tablet 40 mg. 07/03/19 Active insulin aspart protamine-insuli n aspart (NOVOLOG MIX 70/30) 100 unit/mL (70-30) injection pen Inject under the skin 2 (two) times a day with meals. 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 No frequent [...] with copy here. BP under reasonable control. CAD (coronary artery disease) Carcinoma of prostate Dyslipidemia Gastroesophageal reflux disease Overview (11/01/2022): Apr 09, 2021 Entered By: JERALD TENORIO Comment: Gutierrez's esophagus, c/w EGD q3y Gout Stage 3 chronic kidney disease Type 2 diabetes mellitus Type 2 diabetes mellitus with peripheral vascula r disease Family History Medical History Relation Comments Heart attack Brother age 52 Relation Status Comments Brother Social History Tobacco Use Types Packs/Day Years Used Date Smoking Tobacco: Never Smokeless Tobacco: Never Alcohol Use Standard Drinks/Week Comments Yes 4 (1 standard drink = 0.6 oz pur e alcohol) month Education Answer Date Recorded Are you interested in more education? Not on palmira e 10/10/2022 Are you concerned about learning? Not on file 10/10/2022 No 10/10/2022 No 10/10/2022 Digital Access Answer Date Recorded No 11/10/2022 No 11/10/2022 No 11/10/2022 Reliable internet access at home? Not on file 11/10/2022 Device with a working camera? Not on file Sex and Gender Information Value Date Recorded Sex Assigned at Not on file Legal Sex Male 10:14 PM EDT Gender Identity Not on file Sexual Orientation Not on file Last Filed Vital Signs Vital Sign Reading Time Taken Comments Blood Pressure 110/80 10/29/2022 8:50 AM EDT Pulse 84 10/29/2022 8:50 AM EDT Temperature 36 C (96.8 F) 08/11/2022 11:02 AM EST Respiratory Rate 16 08/11/2022 11:15 AM EST Oxygen Saturation 96% 08/11/2022 11:15 AM EST Inhaled Oxygen Concentration - - Weight 98.9 kg (218 lb) 08/11/2022 10:37 AM EST Height 177.8 cm (5' 10 ) 08/11/2022 10:37 AM EST Body Mass Index 31.28 08/11/2022 10:37 AM EST Plan of Treatment Health Maintenance Due Date Last Done Comments CREATININE LEVEL 1937 HEMOGLOBIN A1C 1937 POTASSIUM LEVEL 1937 DEPRESSION SCREENING 1949 LIPID PANEL 1955 RSV VACCINE (1 - 1-dose 75+ series) 2012 PNEUMOCOCCAL VACCINES (50+ years) (2 of 2 - PPSV23) 03/15/2015 01/18/2015 DIABETIC EYE EXAM 11/01/2022 INFLUENZA VACCINE (#1) 2025 , 04/09/2021, 03/13/2020, Additional history exists COVID-19 VACCINE ( season) 2025 08/25/2020, 07/28/2020 Adult Td,Tdap Booster 12/26/2030 12/26/2020 ZOSTER VACCINES Completed 12/26/2020, 07/2019, 06/15/2012 HEPATITIS A VACCINES Aged Out No long er eligible based on patient's age to complete this topic HIB VACCINES Aged Out No longer eligi ble based on patient's age to complete this topic MENINGOCOCCAL VACCINES (ACWY) Aged Out No longer eligible based on patient's age to complete this topic MENINGOCOCCAL VACCINES (B) Aged Out N o longer eligible based on patient's age to complete this topic Medical Devices Implanted Type Area Wastewater Treatment Engineer Device Identifier Shelf Expiration Date Model / Serial / Lot Stent Stent Coronary Insurance BLUE CROSS MEDEX SUPPLEMENT MEDICARE PART A & B BLUE CROSS MEDEX SUPPLEMENT MEDICARE PART A & B BLUE CROSS MEDEX SUPPLEMENT MEDICARE PART A & B My [employer] CROSS MEDEX SUPPLEMENT MEDICARE PART A & B Member Subscriber Plan / Payer ( fective 2002-Present) Name:Chidi Barkley Member ID:[id number] Relation to Subscriber:Self Name:Chidi Barkley Subscriber ID:[id number] Payer ID:[id number] Group ID:Not on file Type:Medicare Address: [employer] [address] BLUE CROSS MEDEX SUPPLEMENT MEDICARE PART A & B BLUE CROSS MEDEX SUPPLEMENT MEDICARE PART A & B Evocalize MEDEX SUPPLEMENT MEDICARE PART A & B Evocalize MEDEX SUPPLEMENT MEDICARE PART A & B My [employer] 10 CROSS MEDEX SUPPLEMENT MEDICARE PART A & B Care Teams Boot And Shoe Laborer Relationship Specialty Start Date End Date Jerald Tenorio MD [address] [place] [id number] PCP - General Internal Medicine 08/11/22 Additional Source Comments The information contained in this document represents components of the legal health record. It is not the complete legal health record.[facility]
[2025-03-15 08:32] LABS: Prostate Specific Antigen 3.73 ng/mL (<0.05-4.0)
== END 2025-03-15 06:39 | disposition home or self-care (01) ==
LOC: HO.LAB 06:38
PROVIDERS: PCP Internal Medicine; Visit Provider Urology
DX: C61 Malignant neoplasm of prostate (principal); Z12.5 Encounter for screening for malignant neoplasm of prostate
CPT/HCPCS: 36415; 84153

== ENCOUNTER 2025-03-29 12:57 | Outpatient (AMB) | payer MEDICARE, SELFPAY ==
--- NOTE | 2025-03-29 12:58 | A.OFFVIS_ITS ---
Intake Visit Reasons: 4m/PSA Intake Note: Patient is Present for 4 mo Follow Up Urology Medication: None Antibiotic Allergies:None Blood Thinners: Plavix(Clopidogrel) Labs done 03/15/25 : PSA 3.73 Fourdrinier Operator Required: No Accompanied by: Self / Same As Patient Allergies colbetamide- used for gout Allergy (Unknown, Uncoded 03/29/25 12:58) 50 years ago COLBETAMINE Allergy (Unknown, Uncoded 03/29/25 12:58) SWELLING HPI Comments Details: Chidi is a pleasant male. He is a patient of Dr. Barrientos. He is seen for the following urologic conditions - prostate cancer PSA stable PSA 02/04 0.9 T 80, 06/06 1.1 100, 10/06 0.8, 02/05 1.4 T 99, 06/07 2.0 T 81, 11/06 3.28 T 100, 04/08 3.7 Prostate cancer Grade Group 4 - 07/02 treatment with intermittent hormone therapy Initial diagnosis of Teo 8 prostate cancer Initial consideration for therapy was external beam radiation Patient opted for intermittent hormone therapy - with intermittent finasteride Laboratories - 09/02 PSA 0.05, 12/03 PSA <0.1 T 10, 03/05, 03/05 PSA 0.06 T 13, 07/06 P 0.15 T 13, 12/04 0.2 T 35, 06/05 0.15 Fin, 10/05 0.7 T 74, 11/06 3.2 Last [facility] 03/04 - 2 years [facility] Medical History Gout GERD (gastroesophageal reflux disease) Diabetes mellitus, type II Elevated PSA Increasing prostate specific antigen (PSA) level after treatment for malignant neoplasm of prostate Prostate cancer Surgical History H/O inguinal hernia repair History of prostate biopsy Family History Father No problems noted. Mother No problems noted. Social History Alcohol intake: never Patient Tobacco Use Status: Never used Tobacco Review of Systems Const Denies chills and Denies fever(s) Card Reports no additional complaints and Denies syncope Resp Denies cough GI Denies abdominal pain and Denies heartburn Reports as per HPI and Denies change in libido Neuro Denies syncope Psych Denies change in libido Endo Denies change in libido Physical Exam Const General: cooperative, healthy appearing, comfortable and no acute distress Orientation/consciousness: patient oriented x3 HEENT Face and sinus: Yes normal facial exam Mouth: moist mucous membranes Neck Neck: Yes normal visual inspection, Yes full ROM and Yes trachea midline Chest Chest palpation & inspection: normal inspection of the chest Resp Effort & Inspection: normal respiratory effort, able to speak in complete sentences and no respiratory distress GI Inspection: Yes normal to inspection Back/Spine/Pelvis Cervical Spine: normal cervical lordosis Thoracic/Lumbar Spine: thoracic and lumbar spine normal to inspection Skin General skin exam: no rashes or lesions noted Neuro General: patient oriented x3, gait normal, tone normal and moves all extremities Extrem General: Yes normal to inspection and Yes capillary refill normal Assessment & Plan Assessment & Plan (1) Prostate cancer: Comment: [id number] Grade Group 4, Initial hormonal treatment Code(s): C61 - Malignant neoplasm of prostate Category: Medical Plan Continue four-month follow-up interval surveillance PSA Orders: Orders Testosterone, Total 4 Months C61 - Malignant neoplasm of prostate, R97.21 - Rising PSA following treatment for malignant neoplasm of prostate, Z19.1 - Hormone sensitive malignancy status Prostate Specific Antigen 4 Months C61 - Malignant neoplasm of prostate, R97.21 - Rising PSA following treatment for malignant neoplasm of prostate, Z19.1 - Hormone sensitive malignancy status Patient Instructions: This note is constructed using voice recognition software. While every effort has been made to ensure accuracy gate technician errors may have been included. Imaging studies, laboratory and physical exam results were discussed and reviewed in detail. No major barriers to patient understanding were identified. An opportunity to ask questions regarding the treatment plan was provided. All questions were answered. The patient expressed understanding and agreement with the above treatment plan. The patient is aware they should contact our office by phone for worsening of their current condition or the appearance of new urologic symptoms. Compliance is encouraged with any medications and followup testing that is ordered. It is a privilege to participate in the urologic care of your patient. If you have any questions or concerns regarding treatment for the above conditions, or other urologic issues, please do not hesitate to contact me. The office telephone contact is [phone]. Sincerely, Dr Dhruv Marcos MD, [facility] - Urology Compassionate Specialist Care for the Genitourinary System Coding Level of Care Code Est Pt Level 3 (70483) Add On Problem Visit Only Diagnoses Prostate cancer C61
--- OUTSIDE RECORDS SUMMARY | 2025-03-29 16:34 | XMS_ITS | Encounter Summary ---
Author Organization [facility] Address [address] [place] [address] Phone Care Team Providers Care Certified Medicine Aide Name Role Phone Jerald Tenorio MD Primary Care Prov ider Encounter Details Date Type Department Care Team (Late st Contact Info) Description 08/11/2022 Procedure Pass [facility] Endoscopy Admitting Dept Virtual Department [address] [place] [id number] Social History Tobacco Use Types Packs/Day Years [...] on filedocumented in this encounter Care Teams Certified Medicine Aide Relationship Specialty Start Date End Date Jerald Tenorio MD [address] [place] [address] PCP - General Internal Medicine 08/11/22 documented as of this encounter Additional Source Comments The information contained in this document represents components of the legal health record. It is not the complete legal health record.[facility]
--- OUTSIDE RECORDS SUMMARY | 2025-03-29 16:34 | XMS_ITS | Encounter Summary ---
Author Organization [facility] Address [address] [place] [address] Phone Care Team Providers Care Hearing Dog Trainer Name Role Phone Bairon Ramachandran MD Primary Care Provider Jerald Tenorio MD Primary Care Prov ider Encounter Details Date Type Department Care Team (Late st Contact Info) Description 04/29/2017 Procedure Pass [facility] Endoscopy Admitting Dept Virtual Department [address] [place] [address] Social History Tobacco Use Types Packs/Day Years [...] on filedocumented in this encounter Care Teams Hearing Dog Trainer Relationship Specialty Start Date End Date Bairon Ramachandran MD [address] [place] [address] PCP - General Cardiology 04/29/17 08/10/22 Jerald Tenorio MD [address] [place] [id number] PCP - General Internal Medicine 08/11/22 documented as of this encounter Additional Source Comments The information contained in this document represents components of the legal health record. It is not the complete legal health record.[facility]
--- OUTSIDE RECORDS SUMMARY | 2025-03-29 16:34 | XMS_ITS | Clinical Summary ---
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 11/01/2022 FDC current use of oral hypoglycemic drug 11/01/2022 [...] this topic Medical Devices Implanted Type Area Heavy Media Operator Device Identifier Shelf Expiration Date Model / Serial / Lot Stent Stent Coronary Insurance BLUE CROSS MEDEX SUPPLEMENT MEDICARE PART A & B BLUE CROSS MEDEX SUPPLEMENT MEDICARE PART A & B BLUE CROSS MEDEX SUPPLEMENT MEDICARE PART A & B [employer] CROSS MEDEX SUPPLEMENT MEDICARE PART A & B Member Subscriber Plan / Payer ( fective 2002-Present) Name:Chidi Barkley Member ID:[id number] Relation to Subscriber:Self Name:Chidi Barkley Subscriber ID:[id number] Payer ID:[id number] Group ID:Not on file Type:Medicare Address: [employer] [address] BLUE CROSS MEDEX SUPPLEMENT MEDICARE PART A & B BLUE CROSS MEDEX SUPPLEMENT MEDICARE PART A & B [employer] MEDEX SUPPLEMENT MEDICARE PART A & B [employer] MEDEX SUPPLEMENT MEDICARE PART A & B [employer] CROSS MEDEX SUPPLEMENT MEDICARE PART A & B Care Teams Patient Representative Relationship Specialty Start Date End Date Jerald Tenorio MD [address] [place] [id number] PCP - General Internal Medicine 08/11/22 Additional Source Comments The information contained in this document represents components of the legal health record. It is not the complete legal health record.[facility]
--- OUTSIDE RECORDS SUMMARY | 2025-03-29 16:34 | XMS_ITS | Encounter Summary ---
Author Organization [facility] Address [address] [place] [address] Phone Care Team Providers Care Carpenters Helper Name Role Phone Bairon Ramachandran MD Primary Care Provider Jerald Tenorio MD Primary Care Prov ider Encounter Details Date Type Department Care Team (Late st Contact Info) Description 05/17/2019 Procedure Pass [facility] Endoscopy Admitting Dept Virtual Department [address] [place] [address] Social History Tobacco Use Types Packs/Day Years [...] on filedocumented in this encounter Care Teams Carpenters Helper Relationship Specialty Start Date End Date Bairon Ramachandran MD [address] [place] [address] PCP - General Cardiology 04/29/17 08/10/22 Jerald Tenorio MD [address] [place] [id number] PCP - General Internal Medicine 08/11/22 documented as of this encounter Additional Source Comments The information contained in this document represents components of the legal health record. It is not the complete legal health record.[facility]
--- OUTSIDE RECORDS SUMMARY | 2025-03-29 16:34 | XMS_ITS | Clinical Summary ---
Author Organization [facility] Address [address] [place] [phone] Phone Care Team Providers Care Commercial Collections Specialist Name Role Phone Physician, Pcp Unknown Primary Care Provider Emmy vailable Allergies No known active allergies Medications No known medications Medical History Medical History Date Comments Cancer (CMS/[facility] V24, CMS/[facility] V28) Social History Tobacco Use Types [...] LAB CHEMISTRY METHOD 06/23/2024 6:[address] [facility] Potassium 4.2 3.5 - 5.5 mmol/L LAB CHEMISTRY METHOD 06/23/2024 6:55 PM [facility] Chloride 99 96 - 110 mmol/L LAB CHEMISTRY METHOD 06/23/2024 6:55 PM [facility] CO2 27 21 - 32 mmol/L LAB CHEMISTRY METHOD 06/23/2024 6:55 PM [facility] Anion Gap 7 3 - 11 LAB CHEMISTRY METHOD 06/23/2024 6:55 PM [facility] Glucose 215(H) 70 - 100 mg/dL LAB CHEMISTRY METHOD 06/23/2024 6:55 PM [facility] BUN 33(H) 5 - 25 mg/dL LAB CHEMISTRY METHOD 06/23/2024 6:55 PM [facility] Creatinine 1.61(H) 0.70 - 1.30 mg/dL LAB CHEMISTRY METHOD 06/23/2024 6:55 PM [facility] eGFR 41(L) >=60 mL/min/1. 73m2 LAB CHEMISTRY METHOD 06/23/2024 6:55 PM [facility] Comment:Calculation based on the Chronic Kidney Disease Epidemiology Collaboration (CKD-EPI) equation refit without adjustment for race. BUN/Creatinine Ratio 20.5 LAB CHEMISTRY METHOD 06/23/2024 6:55 PM [facility] Calcium 9.2 8.5 - 10.5 mg/dL LAB CHEMISTRY METHOD 06/23/2024 6:55 PM [facility] AST (SGOT) 24 10 - 42 unit/L LAB CHEMISTRY METHOD 06/23/2024 6:55 PM [facility] ALT (SGPT) 37 10 - 60 unit/L LAB CHEMISTRY METHOD 06/23/2024 6:55 PM [facility] Alkaline Phosphatase 45 42 - 121 unit/L LAB CHEMISTRY METHOD 06/23/2024 6:55 PM [facility] Total Protein 7.2 6.0 - 8.0 g/dL LAB CHEMISTRY METHOD 06/23/2024 6:[address] [facility] Albumin 3.7 3.2 - 5.0 g/dL LAB CHEMISTRY METHOD 06/23/2024 6:[address] [facility] Total Bilirubin 0.5 0.0 - 1.4 mg/dL LAB CHEMISTRY METHOD 06/23/2024 6:[address] [facility] Blood Venous blood specimen / Unknown Venipuncture / Unknown 06/23/2024 6:02 PM EST 06/23/2024 6:13 PM EST us Vannessa [facility] LAB BLOOD ORDERABLES Final Re sult [facility] [address] [place] [address], from Last 3 Months or Most Recently Relevant to Health Maintenance Insurance MEDICARE [facility] Care Teams Commercial Collections Specialist Relationship Specialty Start Date End Date Physician, Pcp Unknown PCP - General 06/23/24
== END 2025-03-29 13:52 | disposition home or self-care (01) ==
LOC: HO.HUSH 12:57
PROVIDERS: PCP Internal Medicine; Visit Provider Urology
DX: C61 Malignant neoplasm of prostate (principal)
CPT/HCPCS: 99213; G2211

== ENCOUNTER → 2025-03-29 12:57 | Outpatient (BNVA) | payer MEDICARE, SELFPAY | PROVIDERS: PCP Internal Medicine; Visit Provider Urology | DX: C61 Malignant neoplasm of prostate (principal); R97.21 Rising PSA following treatment for malignant neoplasm of prostate; Z19.1 Hormone sensitive malignancy status | CPT/HCPCS: 99212 ==